=== PATIENT | male | born 1965 | race Caucasian/White ===

== ENCOUNTER 2023-12-17 12:54 | Inpatient (IN) ==
[2023-12-17] MEDS: DROPERIDOL 5 MG/2 ML VIAL IV STA ×2 (13:10→19:11)
[2023-12-17 13:36] LABS: Hematocrit (blood only) 27.3 % (42.0-52.0); Mean Corpuscular Hemoglobin 25.9 pg (25.0-34.0); Mean Corpuscular Volume 78.4 fL (80.0-100.0); Mean Platelet Volume 9.4 fL (9.4-12.4); Platelet Count 587 K/uL (130-400); RDW Coefficient of Variation 14.5 % (11.5-14.5); RDW Standard Deviation 41.1 fL (36.4-46.3); Red Blood Count 3.48 M/uL (4.70-6.10); White Blood Count 24.98 K/ul (4.8-10.8)
[2023-12-17] MEDS ORDERED: VANCOMYCIN CONSULT ACTIVE PRN (13:51)
[2023-12-17 14:00] LABS: Basophils # (auto) 0.09 K/uL (0.00-0.20); Basophils % (auto) 0.4 %; Eosinophils # (auto) 0.05 K/uL (0.00-0.50); Eosinophils % (auto) 0.2 %; Immature Granulocytes # (auto) 1.05 K/uL (0.01-0.20); Immature Granulocytes % (auto) 4.2 %; Lymphocytes # (auto) 1.07 K/uL (1.20-3.40); Lymphocytes % (auto) 4.3 %; Monocytes # (auto) 1.52 K/uL (0.11-0.59); Monocytes % (auto) 6.1 %; Neutrophils % (auto) 84.8 %; Polychromasia 1+
[2023-12-17 14:02] LABS: Albumin Level 2.8 gm/dl (3.4-5.0); Anion Gap 16 (3-11); Bilirubin Direct 0.1 mg/dl (0-0.2); Bilirubin,Total 0.5 mg/dl (0.2-1.0); Calcium 8.7 mg/dl (8.6-10.3); Carbon Dioxide 19 mmol/L (21-32); Chloride 90 mmol/L (98-107); Potassium 4.9 mmol/L (3.5-5.1); Sodium 125 mmol/L (136-145)
--- NOTE | 2023-12-17 14:03 | XRay Report ---
XR chest 1V portable HISTORY: Altered mental status. screening COMPARISON: None. FINDINGS: No pneumothorax. No pleural effusions. There is elevation of the right hemidiaphragm. The h eart is borderline enlarged. No focal lung consolidations to suggest a pneumonia. No evidence for pul monary edema. No acute fractures. IMPRESSION: 1. Elevated right hemidiaphragm. 2. Borderline cardiomegaly. ACT 112: Negative or not required by law. Electronically signed by: Jimmie Castellanos M.D. 12/17/2023 2:01 PM
--- NOTE | 2023-12-17 14:04 | Electrocardiogram Report ---
Test Reason : Blood Pressure : / mmHG Vent. Rate : 104 BPM Atrial Rate : 104 BPM P-R Int : 150 ms QRS Dur : 110 ms QT Int : 342 ms P-R-T Axes : 062 070 058 degrees QTc Int : 449 ms Sinus tachycardia Otherwise normal ECG No previous ECGs available Confirmed by Percy Tran ([id number]) on 12/17/2023 2:04:05 PM Referred By: REFERRED SELF Confirmed By:Percy Tran
[2023-12-17] MEDS: SODIUM CHLORIDE 0.9% 1,000 ML IV ONE ×3 (14:05→16:40)
[2023-12-17] MEDS: CEFEPIME 2,000 MG/20 ML VIAL IV STA (14:05)
[2023-12-17 14:06] LABS: Troponin I High Sensitivity 11.7 pg/ml (0-20)
[2023-12-17 14:13] LABS: Alanine Aminotransferase 46 U/L (7-52); Alkaline Phosphatase 90 U/L (34-104); Aspartate Aminotransferase 29 U/L (13-39); BUN Creatinine Ratio 21.5 (10-20); Blood Urea Nitrogen 47 mg/dl (6-23); Est GFR (African American) 37.6 ml/min; Est GFR (Non-African American) 32.5 ml/min; Glucose 97 mg/dl (70-99(Fasting)); Lipase 24 U/L (11-82); Total Protein 7.7 gm/dl (6.0-8.3)
[2023-12-17 14:15] LABS: iSTAT Creatinine 2.4 mg/dl (0.6-1.3); iSTAT Hemoglobin 10.2 g/dl (14.0-18.0); iSTAT Ionized Calcium 1.08 mmol/l (1.12-1.32); iSTAT Potassium 5.2 mmol/L (3.3-5.0)
--- NOTE | 2023-12-17 14:45 | CT Scan Report ---
CT SCAN OF THE CERVICAL SPINE CLINICAL HISTORY: Change in mental status. Possible trauma COMPARISON STUDY: No priors. TECHNIQUE: CT scan of the cervical spine is performed from the skull base to the upper thoracic spine . Images are reviewed in the axial, sagittal, and coronal planes. IV contrast was not administered fo r this examination. A dose lowering technique was utilized adhering to the principles of ALARA. FINDINGS: Skeletal structures: The skeletal structures are well-mineralized. There is no evidence of fracture o r subluxation involving the cervical spine. Vertebral body height and alignment are maintained. The odontoid process and lateral masses are intact. The atlantoaxial articulation is preserved. The spino us processes appear intact. There is mild multilevel facet arthropathy. Intervertebral discs: The disc spaces are well maintained. Central canal: Widely patent. Soft tissues: The prevertebral and paraspinous soft tissues are within normal limits. Calvarium: The visualized calvarium at the skull base appears intact. Brain parenchyma: Partially visualized brain parenchyma at the skull base is within normal limits. Sinuses and mastoids: Retention cysts are partially visualized in the right maxillary antrum measurin g up to 2 cm. The mastoid air cells are clear as imaged. Lung apices: Clear as visualized. IMPRESSION: There is no evidence of fracture or subluxation involving the cervical spine. ACT 112: Negative or not required by law. Electronically signed by: Jose Shrestha M.D. 12/17/2023 2:42 PM
[2023-12-17] MEDS: VANCOMYCIN HCL 2,000 MG in SODIUM CHLORIDE 0.9% 500 ML IV ONE (14:46)
--- NOTE | 2023-12-17 14:51 | CT Scan Report ---
CT OF THE HEAD WITHOUT CONTRAST CLINICAL HISTORY: AMS, unclear trauma COMPARISON STUDY: No previous studies for comparison. TECHNIQUE: Helical axial images of the head were obtained without IV contrast. Automated exposure con trol was utilized for the study. A dose lowering technique was utilized adhering to the principles o f ALARA. FINDINGS: This study is mildly compromised by motion artifact. No acute intracranial hemorrhage, midl ine shift or mass effect is present. The ventricular system is unremarkable. The basal cisterns are p atent. No extra-axial collections are present. There are no findings to suggest acute dural sinus thr ombosis or acute territorial infarct. No calvarial fractures are identified. IMPRESSION: 1. No acute intracranial findings. Exam mildly compromised by motion artifact. 2. No calvarial fractures identified. ACT 112: Negative or not required by law. Electronically signed by: Reg Peres M.D. 12/17/2023 2:49 PM
[2023-12-17 15:00] LABS: Appearance Urine Cloudy (Clear); Bacteria Urine Automated Negative (Negative); Bilirubin Urine Negative (Negative); Blood Urine 2+ (Negative); Color Urine Yellow; Epithelial Cell Urine Auto 0-5 /lpf (0-5); Glucose Urine UA Negative (Negative); Ketones Urine Negative (Negative); Leukocyte Esterase Urine 2+ (Negative); Nitrite Urine Negative (Negative); Protein Urine 1+ (Negative); RBC Urine Automated 0-4 /hpf (0-4); Specific Gravity Urine 1.017 (1.000-1.030); Urobilinogen Urine Negative (Negative); WBC Urine Automated >30 /hpf (0-5)
--- NOTE | 2023-12-17 15:19 | CT Scan Report ---
ABDOMEN AND PELVIS CT WITHOUT CONTRAST CT DOSE: 6828.04 mGy.cm HISTORY: Altered mental status. infection TECHNIQUE: Multiaxial CT images of the abdomen and pelvis were performed without contrast. A dose lo wering technique was utilized adhering to the principles of ALARA. COMPARISON STUDY: None. FINDINGS: There is a 2.4 cm thick-walled cavitary focus within the base of the left lower lobe on yocasta ge 87. The right lung base is clear. No acute fractures identified. Degenerative changes within the l ower lumbar spine. Distended gallbladder without gallbladder wall thickening. Hepatic steatosis. The unenhanced pancreas, spleen, and adrenal glands unremarkable. Mild bilateral perinephric edema is not ed. No ureteral stones. No hydronephrosis. A few bilateral hypodense lesions seen within the kidneys. These are incompletely characterize on this noncontrast study but favor cysts. Dominant right renal lesion measures 2.7 cm. The dominant left renal lesion measures 2.3 cm. Further characterization with a follow-up nonemergent renal ultrasound is recommended. Normal caliber abdominal aorta. No retroper itoneal or pelvic lymphadenopathy. The bladder is unremarkable. There is an abnormal gas and fluid co llection loculated between the prostate gland and rectum on image 402 measuring approximately 4.1 x 2 .1 cm. There is also abnormal thickening within the right puborectalis sling with a possible small tu bular tract extending to the right perianal location. This may represent a right perianal fistula bes t seen on images 410 through 431. Mild perianal fat stranding is noted. Therefore, the abnormal gas a nd fluid collection located between the prostate gland and rectum may represent supralevator extensio n of a perianal fistula with abscess formation. Clinical correlation recommended to exclude the possi bility of hydrogel placement in the setting of prior prostate radiation therapy. Suboptimal evaluatio n for bowel pathology due to the lack of intravenous and oral contrast. However, no evidence for a ramesh wel obstruction. Normal appendix. IMPRESSION: 1. There is an abnormal gas and fluid collection loculated between the prostate gland and rectum margarito uring approximately 4.1 x 2.1 cm. There is also abnormal thickening within the right puborectalis sli ng with a possible small tubular tract extending to the right perianal location. Therefore, the abnor mal gas and fluid collection located between the prostate gland and rectum may represent supralevator extension of a right-sided perianal fistula with abscess formation. Clinical correlation recommended to exclude the possibility of hydrogel placement in the setting of prior prostate radiation therapy which could also account for this abnormal gas and fluid collection posterior to the prostate gland. 2. Mild bilateral perinephric edema. This may be chronic. Recommend correlation with urinalysis to ex clude the possibility of a pyelonephritis. 3. Distended gallbladder. No gallbladder wall thickening. 4. Bilateral renal hypodense lesions. These are technically indeterminate on this study but favor cys ts. Follow-up nonemergent renal ultrasound recommended for confirmation. 5. A 2.4 cm thick-walled cavitary focus within the base of the left lower lobe. This could represent a cavitary pneumonia. However, [address] follow-up recommended to ensure resolution. 6. Additional findings as described above. ACT 112: Positive. There are findings on this exam that require communication between the performing entity and the patient following Patient Test Result Information Act ([place] Act 112) guidelines. Electronically signed by: Jimmie Castellanos M.D. 12/17/2023 3:17 PM
[2023-12-17 15:39] LABS: Amphetamines+Metham, Urine Neg (Neg); Barbiturates, Urine Neg (Neg); Benzodiazepine, Urine Neg (Neg); Cocaine, Urine Neg (Neg); MDMA (Ecstacy), Urine Neg (Neg); Marijuana, Urine Neg (Neg); Methadone, Urine Neg (Neg); Opiate, Urine Neg (Neg); Phencyclidine, Urine Neg (Neg)
[2023-12-17 15:58] LABS: Adenovirus PCR Not Detected (NotDetected); Bordetella parapertussis PCR Not Detected (NotDetected); Bordetella pertussis PCR Not Detected (NotDetected); Chlamydia pneumoniae PCR Not Detected (NotDetected); Coronavirus 229E PCR Not Detected (NotDetected); Coronavirus CoV-2 (COVID19)PCR Not Detected (NotDetected); Coronavirus HKU1 PCR Not Detected (NotDetected); Coronavirus NL63 PCR Not Detected (NotDetected); Coronavirus OC43PCR Not Detected (NotDetected); Human Metapneumovirus PCR Not Detected (NotDetected); Influenza A PCR Not Detected (NotDetected); Influenza B PCR Not Detected (NotDetected); Mycoplasma pneumoniae PCR Not Detected (NotDetected); Parainfluenza Virus 1 PCR Not Detected (NotDetected); Parainfluenza Virus 2 PCR Not Detected (NotDetected); Parainfluenza Virus 3 PCR Not Detected (NotDetected); Parainfluenza Virus 4 PCR Not Detected (NotDetected); Respiratory Syncytial VirusPCR Not Detected (NotDetected); Rhinovirus/Enterovirus PCR Not Detected (NotDetected)
--- NOTE | 2023-12-17 16:18 | Emergency Department Note ---
Impression & Plan Sepsis, Abscess, perianal, Acute pyelonephritis, Pneumonia ED Provider Note NAME: KIMMIE DSAILVA AGE: 57 SEX: M : 1965 ARRIVES VIA: Ambulance INFORMANT: Patient, ED PROVIDER(S): Carlos Solo MD CHIEF COMPLAINT: Altered mental status HPI: This is a 57-year-old male presenting for altered mental status. Patient is completely combative, altered and not provide any history. Upon record review from outside record it appears that patient has a history of dyslipidemia, degenerative disc disease, obesity, hypertension and was recently evaluated for right knee pain/swelling. Family says that this was concerning for an infection he was was to get a surgery tomorrow. Based on an outside MRI from an orthopedic note appears that patient had right distal femoral diaphysis signal abnormality concerning for cortical disruption/soft tissue mass with enhancement. This could be consistent with lymphoma or similar neoplasm as per this note. Otherwise patient has been significantly altered, found by EMS in his room rolling around with Significant poor conditions. He was fighting this will, and required sedation with 4 mg of IM Ativan total. Upon arrival here, he is again combative requiring droperidol 5 mg IV. Patient otherwise cannot participate in any interview at this time. PAST MEDICAL HISTORY: See Below PAST SURGICAL HISTORY: See Below FAMILY HISTORY: See Below SOCIAL HISTORY: See Below HOME MEDICATIONS: See Below ALLERGIES: See Below VITALS: See Below PHYSICAL EXAMINATION: General: Combative Head: Normocephalic and atraumatic Eyes: Normal inspection, extraocular muscles intact, reactive bilaterally Ear, nose, throat: Normal external exam Neck: Normal range of motion Respiratory: lungs clear to auscultation bilaterally Cardiovascular: Tachycardic regular rate/rhythm, no murmur GI:, Distended soft, nontender, no guarding or rebound Extremities: Right knee warmth, no significant erythema Neuro: Moves all extremities spontaneously, no posturing, response to painful stimuli does not follow commands Skin: Warm, dry, and intact MEDICAL DECISION MAKING: This is a 57-year-old male presenting for altered mental status. Patient does appear somewhat septic, tachycardic, not hypotensive. He has a right knee swelling which appears to be consistent with a possible lymphoma/neoplasm of osteomyelitis could be considered. Does not appear outwardly septic joint. Otherwise look for other source. Will get urinalysis, CT of the abdomen/pelvis as well as CT head to evaluate for any intracranial hemorrhage. -Blood history of significant leukocytosis 11/14 lactic acid was also elevated at 4.2. Fluids ordered as well as broad-spectrum antibiotics given including vancomycin and cefepime. -Blood work reveals anemia, significant thrombocytosis -Significant hyponatremia is noted, anion gap is 16, creatinine elevation, DICK at 2.19 normal LFTs, troponin and lipase -Patient CT imaging reveals no intracranial process -Imaging also reveals multiple sources of possible infection including this possible perianal abscess/fistula. Also shows pyelonephritis with urinalysis that is concerning for infection. Otherwise possible pneumonia as well -Chest x-ray as independent by me reveals cardiomegaly, no pleural effusions or pneumothorax -Patient's repeat lactic acid is downtrending however despite fluid cessation and broad-spectrum antibiotics, patient continues to be significantly altered, still unable to provide any significant history. Is thrashing in bed. Will require further sedation. -I discussed the care with Dr. Simpson, who states he will be able to consult on it however he may not be able to drain this and may require IR intervention. We currently do not have IR capabilities. -Discussed care with hospitalist at this time who excepted the patient. -At a later point, hospitalist called back saying ICU request transfer to outside facility for ultimate surgical intervention. [facility] hospitalist call the [facility] who states the IR/surgery teams do not believe this is any that is amenable to drainage and would benefit from antibiotics. Please see their note for further details. Otherwise patient will stay here in the ICU for antibiotics. -I discussed care with patient's family numerous times during patient's time in the ER. Differential diagnosis: Sepsis, pneumonia, septic joint, cholecystitis, pyelonephritis, intra-abdominal infection, SBO, necrotizing fasciitis ER treatment provided: See below Diagnostics interpreted by me: ECG: ECG independently interpreted by me with sinus tachycardia, rate of 104, normal axis, normal OR, normal QRS, normal QTc, no ST segment elevations consistent with STEMI criteria Cardiac Monitoring: An order was placed for continuous cardiac monitoring. The monitor shows a rate of 102 with sinus Laboratory studies: As stated above and show below. Imaging studies: See below. Critical Care Note: I have personally spent 100 minutes of critical care time in the direct management of this patient. This includes bedside care, interpretation of diagnostic studies, and testing, discussion with consultants, patient, and family members, and other required patient management activities. This 100 minutes is in excess of all separately billable procedures. Past Med/Surg History Medical History (Updated 12/17/23 @ 19:58 by Carlos Solo MD) Dyslipidemia Hypertension Social History Smoking Status: Never smoker Preferred Language: Mohawk Feels Safe at Home: Yes Allergies Allergies Allergy/AdvReac Type Severity Reaction Status Date / Time No Known Allergies Allergy Unverified 12/17/23 15:30 Home Meds Home Medications Medication Instructions Recorded Confirmed atenolol 25 mg tablet 25 mg PO QAM 12/17/23 12/17/23 chlorthalidone 25 mg tablet 25 mg PO QAM 12/17/23 12/17/23 enalapril maleate 10 mg tablet 10 mg PO QAM 12/17/23 12/17/23 enalapril maleate 20 mg tablet 20 mg PO QAM 12/17/23 12/17/23 naproxen 500 mg tablet 500 mg PO BID PRN Pain 12/17/23 12/17/23 simvastatin 20 mg tablet 20 mg PO HS 12/17/23 12/17/23 Results & Data (ED) Vital Signs Vital Signs - 24 hr 12/17/23 13:00 12/17/23 13:10 12/17/23 13:13 Temperature Temperature Source Pulse Rate 108 H 111 H Pulse Rate [Right Finger] Pulse Rate from SpO2 Sensor 24 L 107 H 114 H Pulse Rhythm Pulse Rhythm [Right Finger] Pulse Strength Respiratory Rate 18 20 Respiratory Effort / Characteristics Respiratory Depth Respiratory Pattern Blood Pressure 118/62 118/62 Blood Pressure [Right Arm] Blood Pressure Mean 80 80 Blood Pressure Mean [Right Arm] Blood Pressure Position Blood Pressure Position [Right Arm] Pulse Oximetry 82 L 95 98 Oxygen Delivery Method Sepsis Recent Fever Within 48 Hours Sepsis New/Unexplained Change in Mental Status Sepsis Action Taken by Nursing 12/17/23 13:21 12/17/23 13:30 12/17/23 14:01 Temperature Temperature Source Pulse Rate 106 H 112 H 103 H Pulse Rate [Right Finger] Pulse Rate from SpO2 Sensor 114 H 101 H Pulse Rhythm Regular Pulse Rhythm [Right Finger] Pulse Strength Normal Respiratory Rate 20 18 22 Respiratory Effort / Characteristics Non-Labored Spontaneous Respiratory Depth Normal Respiratory Pattern Regular Blood Pressure 137/65 117/91 100/58 L Blood Pressure [Right Arm] Blood Pressure Mean 89 99 72 Blood Pressure Mean [Right Arm] Blood Pressure Position Sitting Blood Pressure Position [Right Arm] Pulse Oximetry 100 99 97 Oxygen Delivery Method Room Air Sepsis Recent Fever Within 48 Hours No Sepsis New/Unexplained Change in Mental Status No Sepsis Action Taken by Nursing No Action Required 12/17/23 14:07 12/17/23 14:31 12/17/23 14:57 Temperature 38.1 C H Temperature Source Rectal Pulse Rate 109 H 125 H Pulse Rate [Right Finger] Pulse Rate from SpO2 Sensor 39 L Pulse Rhythm Pulse Rhythm [Right Finger] Pulse Strength Respiratory Rate 15 Respiratory Effort / Characteristics Respiratory Depth Respiratory Pattern Blood Pressure 124/88 Blood Pressure [Right Arm] Blood Pressure Mean 100 Blood Pressure Mean [Right Arm] Blood Pressure Position Blood Pressure Position [Right Arm] Pulse Oximetry 85 L Oxygen Delivery Method Sepsis Recent Fever Within 48 Hours Sepsis New/Unexplained Change in Mental Status Sepsis Action Taken by Nursing 12/17/23 15:00 12/17/23 15:13 12/17/23 15:13 Temperature Temperature Source Pulse Rate 100 H 108 H 111 H Pulse Rate [Right Finger] Pulse Rate from SpO2 Sensor 99 H 114 H Pulse Rhythm Pulse Rhythm [Right Finger] Pulse Strength Respiratory Rate 19 22 22 Respiratory Effort / Characteristics Respiratory Depth Respiratory Pattern Blood Pressure 133/61 132/71 Blood Pressure [Right Arm] Blood Pressure Mean 85 94 Blood Pressure Mean [Right Arm] Blood Pressure Position Blood Pressure Position [Right Arm] Pulse Oximetry 97 99 90 Oxygen Delivery Method Room Air Room Air Room Air Sepsis Recent Fever Within 48 Hours Sepsis New/Unexplained Change in Mental Status Sepsis Action Taken by Nursing 12/17/23 15:30 12/17/23 15:30 12/17/23 15:48 Temperature Temperature Source Pulse Rate 116 H Pulse Rate [Right Finger] 110 H 110 H Pulse Rate from SpO2 Sensor 120 H Pulse Rhythm Pulse Rhythm [Right Finger] Pulse Strength Respiratory Rate 20 20 19 Respiratory Effort / Characteristics Non-Labored Non-Labored Respiratory Depth Normal Normal Respiratory Pattern Blood Pressure 107/82 Blood Pressure [Right Arm] 107/82 107/73 Blood Pressure Mean 98 Blood Pressure Mean [Right Arm] 90 84 Blood Pressure Position Blood Pressure Position [Right Arm] Pulse Oximetry 97 95 99 Oxygen Delivery Method Room Air Room Air Room Air Sepsis Recent Fever Within 48 Hours Sepsis New/Unexplained Change in Mental Status Sepsis Action Taken by Nursing 12/17/23 15:48 12/17/23 16:00 12/17/23 16:00 Temperature Temperature Source Pulse Rate 109 H Pulse Rate [Right Finger] 102 H Pulse Rate from SpO2 Sensor 111 H 104 H Pulse Rhythm Pulse Rhythm [Right Finger] Regular Pulse Strength Respiratory Rate 16 24 Respiratory Effort / Characteristics Non-Labored Spontaneous Respiratory Depth Normal Respiratory Pattern Regular Blood Pressure 107/73 120/71 Blood Pressure [Right Arm] 120/71 Blood Pressure Mean 83 87 Blood Pressure Mean [Right Arm] 87 Blood Pressure Position Blood Pressure Position [Right Arm] Lying Pulse Oximetry 94 97 93 Oxygen Delivery Method Room Air Room Air Room Air Sepsis Recent Fever Within 48 Hours Sepsis New/Unexplained Change in Mental Status Sepsis Action Taken by Nursing 12/17/23 16:20 12/17/23 16:30 12/17/23 16:34 Temperature Temperature Source Pulse Rate 118 H 108 H Pulse Rate [Right Finger] 106 H Pulse Rate from SpO2 Sensor 114 H 109 H Pulse Rhythm Pulse Rhythm [Right Finger] Pulse Strength Respiratory Rate 29 H 24 16 Respiratory Effort / Characteristics Non-Labored Respiratory Depth Normal Respiratory Pattern Regular Blood Pressure 118/71 138/80 Blood Pressure [Right Arm] 138/80 Blood Pressure Mean 86 99 Blood Pressure Mean [Right Arm] 99 Blood Pressure Position Blood Pressure Position [Right Arm] Pulse Oximetry 94 92 97 Oxygen Delivery Method Room Air Room Air Sepsis Recent Fever Within 48 Hours Sepsis New/Unexplained Change in Mental Status Sepsis Action Taken by Nursing 12/17/23 16:40 12/17/23 17:00 12/17/23 17:00 Temperature Temperature Source Pulse Rate 117 H 112 H Pulse Rate [Right Finger] 116 H Pulse Rate from SpO2 Sensor 113 H Pulse Rhythm Pulse Rhythm [Right Finger] Pulse Strength Respiratory Rate 16 24 25 H Respiratory Effort / Characteristics Non-Labored Respiratory Depth Normal Respiratory Pattern Blood Pressure 114/69 Blood Pressure [Right Arm] 128/69 Blood Pressure Mean 84 Blood Pressure Mean [Right Arm] 88 Blood Pressure Position Blood Pressure Position [Right Arm] Pulse Oximetry 94 98 91 Oxygen Delivery Method Room Air Sepsis Recent Fever Within 48 Hours Sepsis New/Unexplained Change in Mental Status Sepsis Action Taken by Nursing 12/17/23 17:10 12/17/23 17:15 12/17/23 17:30 Temperature Temperature Source Pulse Rate 116 H 116 H Pulse Rate [Right Finger] 118 H Pulse Rate from SpO2 Sensor 131 H Pulse Rhythm Pulse Rhythm [Right Finger] Pulse Strength Respiratory Rate 18 17 Respiratory Effort / Characteristics Non-Labored Respiratory Depth Normal Respiratory Pattern Blood Pressure 128/69 Blood Pressure [Right Arm] 142/59 H Blood Pressure Mean 88 Blood Pressure Mean [Right Arm] 86 Blood Pressure Position Blood Pressure Position [Right Arm] Pulse Oximetry 91 97 Oxygen Delivery Method Room Air Sepsis Recent Fever Within 48 Hours Sepsis New/Unexplained Change in Mental Status Sepsis Action Taken by Nursing 12/17/23 17:30 12/17/23 17:40 12/17/23 18:00 Temperature Temperature Source Pulse Rate 119 H Pulse Rate [Right Finger] 116 H Pulse Rate from SpO2 Sensor 119 H Pulse Rhythm Pulse Rhythm [Right Finger] Pulse Strength Respiratory Rate 18 24 Respiratory Effort / Characteristics Non-Labored Spontaneous Respiratory Depth Normal Respiratory Pattern Blood Pressure 142/59 H Blood Pressure [Right Arm] 122/83 Blood Pressure Mean 86 Blood Pressure Mean [Right Arm] 96 Blood Pressure Position Blood Pressure Position [Right Arm] Pulse Oximetry 98 93 100 Oxygen Delivery Method Room Air Sepsis Recent Fever Within 48 Hours Sepsis New/Unexplained Change in Mental Status Sepsis Action Taken by Nursing 12/17/23 18:00 12/17/23 18:30 12/17/23 18:39 Temperature Temperature Source Pulse Rate 118 H 118 H Pulse Rate [Right Finger] 115 H Pulse Rate from SpO2 Sensor 167 H Pulse Rhythm Pulse Rhythm [Right Finger] Pulse Strength Respiratory Rate 18 21 18 Respiratory Effort / Characteristics Non-Labored Spontaneous Respiratory Depth Normal Respiratory Pattern Blood Pressure 122/83 Blood Pressure [Right Arm] 145/82 H Blood Pressure Mean 100 Blood Pressure Mean [Right Arm] 103 Blood Pressure Position Blood Pressure Position [Right Arm] Pulse Oximetry 98 94 97 Oxygen Delivery Method Room Air Sepsis Recent Fever Within 48 Hours Sepsis New/Unexplained Change in Mental Status Sepsis Action Taken by Nursing 12/17/23 19:00 Temperature Temperature Source Pulse Rate 118 H Pulse Rate [Right Finger] Pulse Rate from SpO2 Sensor 123 H Pulse Rhythm Pulse Rhythm [Right Finger] Pulse Strength Respiratory Rate 20 Respiratory Effort / Characteristics Respiratory Depth Respiratory Pattern Blood Pressure 118/71 Blood Pressure [Right Arm] Blood Pressure Mean 86 Blood Pressure Mean [Right Arm] Blood Pressure Position Blood Pressure Position [Right Arm] Pulse Oximetry 95 Oxygen Delivery Method Sepsis Recent Fever Within 48 Hours Sepsis New/Unexplained Change in Mental Status Sepsis Action Taken by Nursing Laboratory Data 12/17/23 13:10 12/17/23 13:10 Lab Results 12/17/23 12/17/23 12/17/23 Range/Units 13:10 13:30 14:02 WBC 24.98 H (4.8-10.8) K/ul RBC 3.48 L (4.70-6.10) M/uL Hgb 9.0 L (14.0-18.0) g/dl POC Hgb 10.2 L (14.0-18.0) g/dl Hct 27.3 L (42.0-52.0) % POC Hct 30 L (42-52) % MCV 78.4 L (80.0-100.0) fL MCH 25.9 (25.0-34.0) pg MCHC 33.0 (32.0-36.0) g/dL RDW Std Deviation 41.1 (36.4-46.3) fL RDW Coeff of Xavier 14.5 (11.5-14.5) % Plt Count 587 H (130-400) K/uL MPV 9.4 (9.4-12.4) fL Immature Gran % (Auto) 4.2 % Neut % (Auto) 84.8 % Lymph % (Auto) 4.3 % [place] % (Auto) 6.1 % Eos % (Auto) 0.2 % Baso % (Auto) 0.4 % Neut # (Auto) 21.20 H (1.40-6.50) K/uL Lymph # (Auto) 1.07 L (1.20-3.40) K/uL [place] # (Auto) 1.52 H (0.11-0.59) K/uL Eos # (Auto) 0.05 (0.00-0.50) K/uL Baso # (Auto) 0.09 (0.00-0.20) K/uL Immature Gran # (Auto) 1.05 H (0.01-0.20) K/uL Polychromasia 1+ ESR (0-20) mm/hr ABG pH (7.35-7.45) ABG pCO2 (35-46) mmHg ABG pO2 (80-95) mmHg ABG HCO3 (19-24) mmol/L ABG O2 Saturation (90-95) % ABG Base Excess (-9-1.8) mEq/L Wil Test (Pos) Oxygen Given POC Sodium 124 L (135-144) mmol/L Sodium 125 L (136-145) mmol/L POC Potassium 5.2 H (3.3-5.0) mmol/L Potassium 4.9 (3.5-5.1) mmol/L POC Chloride 93 L (101-112) mmol/L Chloride 90 L (98-107) mmol/L Carbon Dioxide 19 L (21-32) mmol/L POC Total CO2 21 L (24-31) mmol/L Anion Gap 16 H (3-11) POC Anion Gap 17.0 (16-25) mmol/L POC BUN 39 H (7-18) mg/dl BUN 47 H (6-23) mg/dl Creatinine 2.19 H (0.6-1.4) mg/dl POC Creatinine 2.4 H (0.6-1.3) mg/dl Est Cr Clr Drug Dosing Not Reportable Est GFR ( Amer) 37.6 ml/min Est GFR (Non-Af Amer) 32.5 ml/min BUN/Creatinine Ratio 21.5 H (10-20) Glucose 97 (70-99(Fasting)) mg/dl POC Glucose (other) 107 H (70-99) mg/dl Osmolality (280-300) mOsm/kg Lactate 4.2 H* (0.4-2.0) mmol/L Calcium 8.7 (8.6-10.3) mg/dl POC Ioniz Calcium Izaiah 1.08 L (1.12-1.32) mmol/l Total Bilirubin 0.5 (0.2-1.0) mg/dl Direct Bilirubin 0.1 (0-0.2) mg/dl AST 29 (13-39) U/L ALT 46 (7-52) U/L Alkaline Phosphatase 90 (34-104) U/L Troponin I High Sens 11.7 (0-20) pg/ml C-Reactive Protein 31.33 H (0-0.5) mg/dl Total Protein 7.7 (6.0-8.3) gm/dl Albumin 2.8 L (3.4-5.0) gm/dl Lipase 24 (11-82) U/L Procalcitonin (0-0.5) ng/ml TSH 2.054 (0.300-4.500) uIu/ml Urine Color Urine Appearance (Clear) Urine pH (4.5-7.5) Ur Specific [place] (1.000-1.030) Urine Protein (Negative) Urine Glucose (UA) (Negative) Urine Ketones (Negative) Urine Blood (Negative) Urine Nitrite (Negative) Urine Bilirubin (Negative) Urine Urobilinogen (Negative) Ur Leukocyte Esterase (Negative) Urine WBC (Auto) (0-5) /hpf Urine RBC (Auto) (0-4) /hpf U Hyaline Cast (Auto) (0-5) /lpf U Epithel Cells (Auto) (0-5) /lpf Urine Bacteria (Auto) (Negative) Urine Yeast Salicylates (3.0-30) mg/dl Urine Opiates Screen (Neg) Ur Methadone, Qual (Neg) Acetaminophen (10-30) ug/ml Urine Barbiturates (Neg) Ur Phencyclidine (PCP) (Neg) U Amphetamin/Meth Scrn (Neg) MDMA (Ecstasy) Screen (Neg) U Benzodiazepines Scrn (Neg) Ur Cocaine Metabolite (Neg) U Marijuana (THC) Screen (Neg) Ethyl Alcohol mg/dL (<10.0) mg/dl Adenovirus (PCR) (NotDetected) B. pertussis DNA (PCR) (NotDetected) B.parapertussis DNA PCR (NotDetected) C. pneumoniae DNA (PCR) (NotDetected) Coronavirus OC43 (PCR) (NotDetected) Coronavirus HKU1 (PCR) (NotDetected) Coronavirus 229E (PCR) (NotDetected) SARS-CoV-2 (PCR) (NotDetected) Coronavirus NL63 (PCR) (NotDetected) Human Metapneumovir PCR (NotDetected) Influenza Type A (PCR) (NotDetected) Influenza Type B (PCR) (NotDetected) M. pneumoniae (PCR) (NotDetected) Parainfluenza 1 (PCR) (NotDetected) Parainfluenza 2 (PCR) (NotDetected) Parainfluenza 3 (PCR) (NotDetected) Parainfluenza 4 (PCR) (NotDetected) RSV (PCR) (NotDetected) Entero/Rhino (PCR) (NotDetected) 12/17/23 12/17/23 12/17/23 Range/Units 14:45 14:50 15:23 WBC (4.8-10.8) K/ul RBC (4.70-6.10) M/uL Hgb (14.0-18.0) g/dl POC Hgb (14.0-18.0) g/dl Hct (42.0-52.0) % POC Hct (42-52) % MCV (80.0-100.0) fL MCH (25.0-34.0) pg MCHC (32.0-36.0) g/dL RDW Std Deviation (36.4-46.3) fL RDW Coeff of Xavier (11.5-14.5) % Plt Count (130-400) K/uL MPV (9.4-12.4) fL Immature Gran % (Auto) % Neut % (Auto) % Lymph % (Auto) % [place] % (Auto) % Eos % (Auto) % Baso % (Auto) % Neut # (Auto) (1.40-6.50) K/uL Lymph # (Auto) (1.20-3.40) K/uL [place] # (Auto) (0.11-0.59) K/uL Eos # (Auto) (0.00-0.50) K/uL Baso # (Auto) (0.00-0.20) K/uL Immature Gran # (Auto) (0.01-0.20) K/uL Polychromasia ESR (0-20) mm/hr ABG pH (7.35-7.45) ABG pCO2 (35-46) mmHg ABG pO2 (80-95) mmHg ABG HCO3 (19-24) mmol/L ABG O2 Saturation (90-95) % ABG Base Excess (-9-1.8) mEq/L Wil Test (Pos) Oxygen Given POC Sodium (135-144) mmol/L Sodium (136-145) mmol/L POC Potassium (3.3-5.0) mmol/L Potassium (3.5-5.1) mmol/L POC Chloride (101-112) mmol/L Chloride (98-107) mmol/L Carbon Dioxide (21-32) mmol/L POC Total CO2 (24-31) mmol/L Anion Gap (3-11) POC Anion Gap (16-25) mmol/L POC BUN (7-18) mg/dl BUN (6-23) mg/dl Creatinine (0.6-1.4) mg/dl POC Creatinine (0.6-1.3) mg/dl Est Cr Clr Drug Dosing Est GFR ( Amer) ml/min Est GFR (Non-Af Amer) ml/min BUN/Creatinine Ratio (10-20) Glucose (70-99(Fasting)) mg/dl POC Glucose (other) (70-99) mg/dl Osmolality (280-300) mOsm/kg Lactate 2.4 H* (0.4-2.0) mmol/L Calcium (8.6-10.3) mg/dl POC Ioniz Calcium Izaiah (1.12-1.32) mmol/l Total Bilirubin (0.2-1.0) mg/dl Direct Bilirubin (0-0.2) mg/dl AST (13-39) U/L ALT (7-52) U/L Alkaline Phosphatase (34-104) U/L Troponin I High Sens (0-20) pg/ml C-Reactive Protein (0-0.5) mg/dl Total Protein (6.0-8.3) gm/dl Albumin (3.4-5.0) gm/dl Lipase (11-82) U/L Procalcitonin (0-0.5) ng/ml TSH (0.300-4.500) uIu/ml Urine Color Yellow Urine Appearance Cloudy A (Clear) Urine pH 5.0 (4.5-7.5) Ur Specific [place] 1.017 (1.000-1.030) Urine Protein 1+ H (Negative) Urine Glucose (UA) Negative (Negative) Urine Ketones Negative (Negative) Urine Blood 2+ H (Negative) Urine Nitrite Negative (Negative) Urine Bilirubin Negative (Negative) Urine Urobilinogen Negative (Negative) Ur Leukocyte Esterase 2+ H (Negative) Urine WBC (Auto) >30 H (0-5) /hpf Urine RBC (Auto) 0-4 (0-4) /hpf U Hyaline Cast (Auto) 1-5 (0-5) /lpf U Epithel Cells (Auto) 0-5 (0-5) /lpf Urine Bacteria (Auto) Negative (Negative) Urine Yeast Not Reportable Salicylates (3.0-30) mg/dl Urine Opiates Screen Neg (Neg) Ur Methadone, Qual Neg (Neg) Acetaminophen (10-30) ug/ml Urine Barbiturates Neg (Neg) Ur Phencyclidine (PCP) Neg (Neg) U Amphetamin/Meth Scrn Neg (Neg) MDMA (Ecstasy) Screen Neg (Neg) U Benzodiazepines Scrn Neg (Neg) Ur Cocaine Metabolite Neg (Neg) U Marijuana (THC) Screen Neg (Neg) Ethyl Alcohol mg/dL (<10.0) mg/dl Adenovirus (PCR) Not Detected (NotDetected) B. pertussis DNA (PCR) Not Detected (NotDetected) B.parapertussis DNA PCR Not Detected (NotDetected) C. pneumoniae DNA (PCR) Not Detected (NotDetected) Coronavirus OC43 (PCR) Not Detected (NotDetected) Coronavirus HKU1 (PCR) Not Detected (NotDetected) Coronavirus 229E (PCR) Not Detected (NotDetected) SARS-CoV-2 (PCR) Not Detected (NotDetected) Coronavirus NL63 (PCR) Not Detected (NotDetected) Human Metapneumovir PCR Not Detected (NotDetected) Influenza Type A (PCR) Not Detected (NotDetected) Influenza Type B (PCR) Not Detected (NotDetected) M. pneumoniae (PCR) Not Detected (NotDetected) Parainfluenza 1 (PCR) Not Detected (NotDetected) Parainfluenza 2 (PCR) Not Detected (NotDetected) Parainfluenza 3 (PCR) Not Detected (NotDetected) Parainfluenza 4 (PCR) Not Detected (NotDetected) RSV (PCR) Not Detected (NotDetected) Entero/Rhino (PCR) Not Detected (NotDetected) 12/17/23 12/17/23 12/17/23 Range/Units 17:51 18:20 18:34 WBC (4.8-10.8) K/ul RBC (4.70-6.10) M/uL Hgb (14.0-18.0) g/dl POC Hgb (14.0-18.0) g/dl Hct (42.0-52.0) % POC Hct (42-52) % MCV (80.0-100.0) fL MCH (25.0-34.0) pg MCHC (32.0-36.0) g/dL RDW Std Deviation (36.4-46.3) fL RDW Coeff of Xavier (11.5-14.5) % Plt Count (130-400) K/uL MPV (9.4-12.4) fL Immature Gran % (Auto) % Neut % (Auto) % Lymph % (Auto) % [place] % (Auto) % Eos % (Auto) % Baso % (Auto) % Neut # (Auto) (1.40-6.50) K/uL Lymph # (Auto) (1.20-3.40) K/uL [place] # (Auto) (0.11-0.59) K/uL Eos # (Auto) (0.00-0.50) K/uL Baso # (Auto) (0.00-0.20) K/uL Immature Gran # (Auto) (0.01-0.20) K/uL Polychromasia ESR 95 H (0-20) mm/hr ABG pH 7.45 (7.35-7.45) ABG pCO2 27 L (35-46) mmHg ABG pO2 70 L (80-95) mmHg ABG HCO3 19 (19-24) mmol/L ABG O2 Saturation 97.5 H (90-95) % ABG Base Excess -3.8 (-9-1.8) mEq/L Wil Test Pos (Pos) Oxygen Given RA POC Sodium (135-144) mmol/L Sodium (136-145) mmol/L POC Potassium (3.3-5.0) mmol/L Potassium (3.5-5.1) mmol/L POC Chloride (101-112) mmol/L Chloride (98-107) mmol/L Carbon Dioxide (21-32) mmol/L POC Total CO2 (24-31) mmol/L Anion Gap (3-11) POC Anion Gap (16-25) mmol/L POC BUN (7-18) mg/dl BUN (6-23) mg/dl Creatinine (0.6-1.4) mg/dl POC Creatinine (0.6-1.3) mg/dl Est Cr Clr Drug Dosing Est GFR ( Amer) ml/min Est GFR (Non-Af Amer) ml/min BUN/Creatinine Ratio (10-20) Glucose (70-99(Fasting)) mg/dl POC Glucose (other) (70-99) mg/dl Osmolality 280 (280-300) mOsm/kg Lactate (0.4-2.0) mmol/L Calcium (8.6-10.3) mg/dl POC Ioniz Calcium Izaiah (1.12-1.32) mmol/l Total Bilirubin (0.2-1.0) mg/dl Direct Bilirubin (0-0.2) mg/dl AST (13-39) U/L ALT (7-52) U/L Alkaline Phosphatase (34-104) U/L Troponin I High Sens (0-20) pg/ml C-Reactive Protein (0-0.5) mg/dl Total Protein (6.0-8.3) gm/dl Albumin (3.4-5.0) gm/dl Lipase (11-82) U/L Procalcitonin 1.35 H (0-0.5) ng/ml TSH (0.300-4.500) uIu/ml Urine Color Urine Appearance (Clear) Urine pH (4.5-7.5) Ur Specific [place] (1.000-1.030) Urine Protein (Negative) Urine Glucose (UA) (Negative) Urine Ketones (Negative) Urine Blood (Negative) Urine Nitrite (Negative) Urine Bilirubin (Negative) Urine Urobilinogen (Negative) Ur Leukocyte Esterase (Negative) Urine WBC (Auto) (0-5) /hpf Urine RBC (Auto) (0-4) /hpf U Hyaline Cast (Auto) (0-5) /lpf U Epithel Cells (Auto) (0-5) /lpf Urine Bacteria (Auto) (Negative) Urine Yeast Salicylates < 3.0 L (3.0-30) mg/dl Urine Opiates Screen (Neg) Ur Methadone, Qual (Neg) Acetaminophen 3 L (10-30) ug/ml Urine Barbiturates (Neg) Ur Phencyclidine (PCP) (Neg) U Amphetamin/Meth Scrn (Neg) MDMA (Ecstasy) Screen (Neg) U Benzodiazepines Scrn (Neg) Ur Cocaine Metabolite (Neg) U Marijuana (THC) Screen (Neg) Ethyl Alcohol mg/dL < 10.0 (<10.0) mg/dl Adenovirus (PCR) (NotDetected) B. pertussis DNA (PCR) (NotDetected) B.parapertussis DNA PCR (NotDetected) C. pneumoniae DNA (PCR) (NotDetected) Coronavirus OC43 (PCR) (NotDetected) Coronavirus HKU1 (PCR) (NotDetected) Coronavirus 229E (PCR) (NotDetected) SARS-CoV-2 (PCR) (NotDetected) Coronavirus NL63 (PCR) (NotDetected) Human Metapneumovir PCR (NotDetected) Influenza Type A (PCR) (NotDetected) Influenza Type B (PCR) (NotDetected) M. pneumoniae (PCR) (NotDetected) Parainfluenza 1 (PCR) (NotDetected) Parainfluenza 2 (PCR) (NotDetected) Parainfluenza 3 (PCR) (NotDetected) Parainfluenza 4 (PCR) (NotDetected) RSV (PCR) (NotDetected) Entero/Rhino (PCR) (NotDetected) Administered Medications Discontinued Medications Droperidol (Droperidol 5 Mg/2 Ml Vial) 5 mg IV ONE STA Stop: 12/17/23 13:51 Last Admin: 12/17/23 13:10 Dose: 5 mg Documented By: GWEN Droperidol (Droperidol 5 Mg/2 Ml Vial) 2.5 mg IV ONE STA Stop: 12/17/23 19:03 Last Admin: 12/17/23 19:11 Dose: 2.5 mg Documented By: LIZ Sodium Chloride (Nss) 1,000 mls @ 999 mls/hr IV .Q1H1M ONE Stop: 12/17/23 14:51 Last Infusion: 12/17/23 16:32 Dose: Infused Documented By: Admin: 12/17/23 14:05 Dose: 999 mls/hr Documented By: GWEN Vancomycin HCl 2,000 mg/ (Sodium Chloride) 540 mls @ 200 mls/hr IV NOW ONE Stop: 12/17/23 16:32 Last Infusion: 12/17/23 17:28 Dose: Infused Documented By: Admin: 12/17/23 14:46 Dose: 200 mls/hr Documented By: GWEN Cefepime HCl (Maxipime) 2,000 mg in 20 mls @ 5 mls/min IV NOW STA; Protocol Stop: 12/17/23 13:54 Last Admin: 12/17/23 14:05 Dose: 5 mls/min Documented By: GWEN Sodium Chloride (Nss) 1,000 mls @ 999 mls/hr IV .Q1H1M ONE Stop: 12/17/23 17:18 Last Infusion: 12/17/23 17:40 Dose: Infused Documented By: Admin: 12/17/23 16:40 Dose: 999 mls/hr Documented By: YVONNE Sodium Chloride (Nss) 1,000 mls @ 999 mls/hr IV .Q1H1M ONE Stop: 12/17/23 17:33 Last Infusion: 12/17/23 17:40 Dose: Infused Documented By: Admin: 12/17/23 16:40 Dose: 999 mls/hr Documented By: YVONNE Acetaminophen (Ofirmev) 1,000 mg in 100 mls @ 400 mls/hr IV NOW STA Stop: 12/17/23 18:12 Last Infusion: 12/17/23 18:16 Dose: Infused Documented By: Admin: 12/17/23 18:01 Dose: 400 mls/hr Documented By: YVONNE Metronidazole (Flagyl) 500 mg in 100 mls @ 100 mls/hr IV NOW STA; Protocol Stop: 12/17/23 19:15 Last Infusion: 12/17/23 19:50 Dose: Infused Documented By: Admin: 12/17/23 18:36 Dose: 100 mls/hr Documented By: YVONNE Piperacillin Sod/Tazobactam (Sod 4.5 gm/ Dextrose) 100 mls @ 200 mls/hr IV NOW ONE; Protocol Stop: 12/17/23 18:59 Last Infusion: 12/17/23 19:50 Dose: Infused Documented By: Admin: 12/17/23 19:11 Dose: 200 mls/hr Documented By: LIZ Piperacillin Sod/Tazobactam Sod (Piperacillin/Tazobactam 4.5 Gm/100ml D5w) Confirm Administered Dose 4.5 gm IV .STK-MED ONE Stop: 12/17/23 18:50 Last Admin: 12/17/23 19:08 Dose: Not Given Documented By: [facility] Imaging Data Radiologist's Impression: Cervical Spine CT 12/17/23 13:15 CT SCAN OF THE CERVICAL SPINE CLINICAL HISTORY: Change in mental status. Possible trauma COMPARISON STUDY: No priors. TECHNIQUE: CT scan of the cervical spine is performed from the skull base to the upper thoracic spine. Images are reviewed in the axial, sagittal, and coronal planes. IV contrast was not administered for this examination. A dose lowering technique was utilized adhering to the principles of ALARA. FINDINGS: Skeletal structures: The skeletal structures are well-mineralized. There is no evidence of fracture or subluxation involving the cervical spine. Vertebral body height and alignment are maintained. The odontoid process and lateral masses are intact. The atlantoaxial articulation is preserved. The spinous processes appear intact. There is mild multilevel facet arthropathy. Intervertebral discs: The disc spaces are well maintained. Central canal: Widely patent. Soft tissues: The prevertebral and paraspinous soft tissues are within normal limits. Calvarium: The visualized calvarium at the skull base appears intact. Brain parenchyma: Partially visualized brain parenchyma at the skull base is within normal limits. Sinuses and mastoids: Retention cysts are partially visualized in the right maxillary antrum measuring up to 2 cm. The mastoid air cells are clear as imaged. Lung apices: Clear as visualized. IMPRESSION: There is no evidence of fracture or subluxation involving the cervical spine. ACT 112: Negative or not required by law. Electronically signed by: Jose Shrestha M.D. 12/17/2023 2:[address] 12/17/23 13:15 CT OF THE HEAD WITHOUT CONTRAST CLINICAL HISTORY: AMS, unclear trauma COMPARISON STUDY: No previous studies for comparison. TECHNIQUE: Helical axial images of the head were obtained without IV contrast. Automated exposure control was utilized for the study. A dose lowering technique was utilized adhering to the principles of ALARA. FINDINGS: This study is mildly compromised by motion artifact. No acute intracranial hemorrhage, midline shift or mass effect is present. The ventricular system is unremarkable. The basal cisterns are patent. No extra- axial collections are present. There are no findings to suggest acute dural sinus thrombosis or acute territorial infarct. No calvarial fractures are identified. IMPRESSION: 1. No acute intracranial findings. Exam mildly compromised by motion artifact. 2. No calvarial fractures identified. ACT 112: Negative or not required by law. Electronically signed by: Reg Peres M.D. 12/17/2023 2:49 PM Chest X-Ray 12/17/23 13:32 XR chest 1V portable HISTORY: Altered mental status. screening COMPARISON: None. FINDINGS: No pneumothorax. No pleural effusions. There is elevation of the right hemidiaphragm. The heart is borderline enlarged. No focal lung consolidations to suggest a pneumonia. No evidence for pulmonary edema. No acute fractures. IMPRESSION: 1. Elevated right hemidiaphragm. 2. Borderline cardiomegaly. ACT 112: Negative or not required by law. Electronically signed by: Jimmie Castellanos M.D. 12/17/2023 2:01 PM Abdomen/Pelvis CT 12/17/23 14:[address] WITHOUT CONTRAST CT DOSE: 6828.04 mGy.cm HISTORY: Altered mental status. infection TECHNIQUE: Multiaxial CT images of the abdomen and pelvis were performed without contrast. A dose lowering technique was utilized adhering to the principles of ALARA. COMPARISON STUDY: None. FINDINGS: There is a 2.4 cm thick-walled cavitary focus within the base of the left lower lobe on image 87. The right lung base is clear. No acute fractures identified. Degenerative changes within the lower lumbar spine. Distended gallbladder without gallbladder wall thickening. Hepatic steatosis. The unenhanced pancreas, spleen, and adrenal glands unremarkable. Mild bilateral perinephric edema is noted. No ureteral stones. No hydronephrosis. A few bilateral hypodense lesions seen within the kidneys. These are incompletely characterize on this noncontrast study but favor cysts. Dominant right renal lesion measures 2.7 cm. The dominant left renal lesion measures 2.3 cm. Further characterization with a follow-up nonemergent renal ultrasound is recommended. Normal caliber abdominal aorta. No retroperitoneal or pelvic lymphadenopathy. The bladder is unremarkable. There is an abnormal gas and fluid collection loculated between the prostate gland and rectum on image 402 measuring approximately 4.1 x 2.1 cm. There is also abnormal thickening within the right puborectalis sling with a possible small tubular tract extending to the right perianal location. This may represent a right perianal fistula best seen on images 410 through 431. Mild perianal fat stranding is noted. Therefore, the abnormal gas and fluid collection located between the prostate gland and rectum may represent supralevator extension of a perianal fistula with abscess formation. Clinical correlation recommended to exclude the possibility of hydrogel placement in the setting of prior prostate radiation therapy. Suboptimal evaluation for bowel pathology due to the lack of intravenous and oral contrast. However, no evidence for a bowel obstruction. Normal appendix. IMPRESSION: 1. There is an abnormal gas and fluid collection loculated between the prostate gland and rectum measuring approximately 4.1 x 2.1 cm. There is also abnormal thickening within the right puborectalis sling with a possible small tubular tract extending to the right perianal location. Therefore, the abnormal gas and fluid collection located between the prostate gland and rectum may represent supralevator extension of a right-sided perianal fistula with abscess formation. Clinical correlation recommended to exclude the possibility of hydrogel placement in the setting of prior prostate radiation therapy which could also account for this abnormal gas and fluid collection posterior to the prostate gland. 2. Mild bilateral perinephric edema. This may be chronic. Recommend correlation with urinalysis to exclude the possibility of a pyelonephritis. 3. Distended gallbladder. No gallbladder wall thickening. 4. Bilateral renal hypodense lesions. These are technically indeterminate on this study but favor cysts. Follow-up nonemergent renal ultrasound recommended for confirmation. 5. A 2.4 cm thick-walled cavitary focus within the base of the left lower lobe. This could represent a cavitary pneumonia. However, [address] follow-up recommended to ensure resolution. 6. Additional findings as described above. ACT 112: Positive. There are findings on this exam that require communication between the performing entity and the patient following Patient Test Result Information Act ([place] Act 112) guidelines. Electronically signed by: Jimmie Castellanos M.D. 12/17/2023 3:17 PM Discharge Plan Visit Data Chief Complaint: Altered Mental Status ED Provider: Carlos Solo Discharge Problem: Sepsis, Abscess, perianal, Acute pyelonephritis, Pneumonia Forms Stand Alone Forms: [facility] Prescriptions Prescriptions: No Action atenolol 25 mg tablet 25 mg PO QAM chlorthalidone 25 mg tablet 25 mg PO QAM enalapril maleate 10 mg tablet 10 mg PO QAM Rx Instructions: TAKE WITH 20MG EVERY MORNING = 30MG DAILY naproxen 500 mg tablet 500 mg PO BID PRN (Reason: Pain) simvastatin 20 mg tablet 20 mg PO HS enalapril maleate 20 mg tablet 20 mg PO QAM Rx Instructions: TAKE WITH 10MG EVERY MORNING = 30MG DAILY DOSE Referrals Referrals: Raul Still MD [Primary Care Provider] -
[2023-12-17] MEDS: ACETAMINOPHEN 1,000 MG/100 ML VIAL IV STA (18:01)
--- NOTE | 2023-12-17 18:29 | Critical Care Consultation ---
Date of Consultation December 17, 2023 Assessment & Plan (1) DICK (acute kidney injury): (2) Encephalopathy: (3) Hyponatremia: (4) Sepsis: (5) Abscess: (6) Hypertension: (7) Migraine: (8) Dyslipidemia: Plan Reason Critically Ill: 57-year-old male presented to the hospital with altered mental status, past medical history of hypertension and dyslipidemia. Recently he also has a lesion in the right knee for which she was supposed to have biopsy done tomorrow done well. Sent to the ICU for sepsis and under mental status Neuro - [facility] ICU: Unable to assess --Metabolic encephalopathy Likely related to sepsis Follow-up TSH Patient is hyponatremic as well as febrile CT head 12/17/2023 negative for any acute intracranial abnormality Cardiac - -- History of hypertension Unable to take p.o. medications right now Give IV medications as needed Respiratory - -- Cavitary lesion in the left lower lobe Unfortunately there is no other imaging to compare Will get CT of the chest without contrast --Elevated right hemidiaphragm GI - No acute issues RENAL/LYTES - -- DICK Follow-up urine lites Monitor BUN/creatinine Avoid nephrotoxic medications Strict ins and outs -- HAGMA Delta-delta: 1.3, pure anion gap Likely sec to lactic acidosis Follow up serum osm, urine osm, urine lytes Follow up ABG Monitor --Hyponatremia with hypochloremia Volume status patient seems to be dehydrated so hypovolemic Follow up serum osmolality - -- Collection of fluid and gas posterior to the prostate and rectum Likely an abscess and source of infection Urology as well as surgery has been consulted Continue with broad-spectrum antibiotic ENDO - -- ICU hypoglycemia protocol HEME - -- Normocytic anemia Monitor H&H ID - -- Perianal/periprosthetic abscess CAT scan finding does not go with Kati's gangrene Continue with broad-spectrum antibiotics --Prophylaxis VTE: IPC GI: Pantoprazole Lines: Peripheral Diet: N.p.o. Plan: Follow-up procalcitonin, ESR, CRP, ABG Follow-up TSH Patient did get 4 mg of Ativan and 5 mg of droperidol prior to me seeing him. Need to get in touch with urology as well as surgery as I do think the source of infection is most likely the abscess. Case discussed with Dr. Jean He got vancomycin and cefepime in the ED. I will give him a dose of Flagyl and change cefepime to Zosyn Tylenol for fever Patient is able to maintain his airway right now but if there is any worsening in his mental status and if there is any compromise in keeping the airway patent will intubate Patient's critical condition was explained to the patient's brother as well as [id number] who are at bedside and help with history I have personally spent 62 minutes of critical care time in the direct management of this patient. This is a life/limb threatening event. This includes time spent evaluating patient, direct bedside care, chart review, placing orders, interpretation of diagnostic studies, discussion with consultants, patient, and family members, as well as other required patient management activities. This time is exclusive of all separately billable procedures, and teaching time and separate from and in addition to any other critical care service time. History of Present Illness History of Present Illness 57-year-old male presented to the hospital with altered mental status Past medical history: hypertension and dyslipidemia. Recently he also has a lesion in the right knee for which she was supposed to have biopsy done tomorrow done well Patient's brother and juufsh-il-vyi were in the room at the time of examination. History was obtained from them. As per the brother patient went to [place] yesterday to have his right knee checked. He was upset that as they did not do anything distal to the knee and asked him to come back again tomorrow. Since last night he has been bit off and today in the morning patient has not been responsive. He has been spiking fever in the ED. He has been given a dose of vancomycin and cefepime. No recent travel history. No going out into the [place] because of the right knee pain. He does have a dog at home. No known history of tick bites. As per the brother he does not have any knowledge that patient has any hemorrhoids Patient is heterosexual. No known history of unsafe sexual practices Social history: Lifetime non-smoker, no alcohol. 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 Allergies Allergy/AdvReac Type Severity Reaction Status Date / Time No Known Allergies Allergy Unverified 12/17/23 15:30 Home Medications Medication Instructions Recorded Confirmed Type atenolol 25 mg tablet 25 mg PO QAM 12/17/23 12/17/23 History chlorthalidone 25 mg tablet 25 mg PO QAM 12/17/23 12/17/23 History enalapril maleate 10 mg tablet 10 mg PO QAM 12/17/23 12/17/23 History enalapril maleate 20 mg tablet 20 mg PO QAM 12/17/23 12/17/23 History naproxen 500 mg tablet 500 mg PO BID PRN Pain 12/17/23 12/17/23 History simvastatin 20 mg tablet 20 mg PO HS 12/17/23 12/17/23 History Patient History Social History Smoking Status: Never smoker Preferred Language: Bel[place]ian Feels Safe at Home: Yes Review of Systems 2 Review of Systems: Unobtainable due to cognitive status Physical Exam 2 Physical Exam: Constitutional: No acute distress HEENT: PERRLA Respiratory system: Good air entry bilaterally, no wheeze, no rhonchi, no crackles Abdomen: Soft, nontender, nondistended, positive bowel sounds x4 Extremities: +2 pulses bilaterally radialis/ dorsalis pedis, no cyanosis, no edema, minimal petechial lesions appreciated on the right leg blanching Neuro: Restless, moving all extremities spontaneously Psych: Unable to assess G/U: Positive Duffy, erythema appreciated around the perianal area more on the right side Skin: no rashes, warm and dry Lymphatic: no cervical or axillary lymphadenopathy Results & Data Results & Data Vital Signs (Past 12 Hours) Vital Signs Temp Pulse Pulse Resp BP BP Pulse Ox 12/17/23 17:30 118 H 17 142/59 H 97 12/17/23 17:15 116 H 12/17/23 17:00 116 H 24 128/69 98 12/17/23 16:34 106 H 16 138/80 97 12/17/23 16:00 102 H 16 120/71 97 12/17/23 15:48 110 H 19 107/73 99 12/17/23 15:30 110 H 20 107/82 97 12/17/23 15:13 108 H 22 99 12/17/23 14:57 38.1 C H 12/17/23 14:31 125 H 15 124/88 85 L 12/17/23 14:07 109 H 12/17/23 14:01 103 H 22 100/58 L 97 12/17/23 13:30 112 H 18 117/91 99 12/17/23 13:21 106 H 20 137/65 100 12/17/23 13:13 111 H 20 118/62 98 12/17/23 13:10 108 H 18 118/62 95 12/17/23 13:00 82 L O2 Del Method 12/17/23 17:30 Room Air 12/17/23 17:15 12/17/23 17:00 Room Air 12/17/23 16:34 Room Air 12/17/23 16:00 Room Air 12/17/23 15:48 Room Air 12/17/23 15:30 Room Air 12/17/23 15:13 Room Air 12/17/23 14:57 12/17/23 14:31 12/17/23 14:07 12/17/23 14:01 12/17/23 13:30 12/17/23 13:21 Room Air 12/17/23 13:13 12/17/23 13:10 12/17/23 13:00 Laboratory Results 12/17/23 13:10 12/17/23 13:10 Coding Level of Care Code 49674 CRITICAL CARE 1ST 30-74M Diagnoses DICK (acute kidney injury) N17.9 Encephalopathy G93.40 Hyponatremia E87.1 Sepsis A41.9 Abscess L02.91 Hypertension I10 Migraine G43.909 Dyslipidemia E78.5
[2023-12-17] MEDS: metroNIDAZOLE 500 MG/100 ML BAG IV STA (18:36)
[2023-12-17 18:41] LABS: Base Excess ABG -3.8 mEq/L (-9-1.8); HCO3 ABG 19 mmol/L (19-24); Oxygen Saturation ABG 97.5 % (90-95); PCO2 ABG 27 mmHg (35-46); PO2 ABG 70 mmHg (80-95); pH ABG 7.45 (7.35-7.45)
[2023-12-17 18:42] LABS: Allen Test Pos (Pos)
[2023-12-17 19:03] LABS: Thyroid Stimulating Hormone 2.054 uIu/ml (0.300-4.500)
[2023-12-17] MEDS: PIPERACILLIN/TAZOBACTAM 4.5 GM/100ML D5W IV ONE (19:08)
[2023-12-17] MEDS: PIPER/TAZO 4.5g in D5W MINI-B 100 ML IV ONE (19:11)
[2023-12-17 19:14] LABS: C Reactive Protein 31.33 mg/dl (0-0.5)
[2023-12-17 19:15] LABS: Acetaminophen 3 ug/ml (10-30); Salicylate < 3.0 mg/dl (3.0-30)
--- NOTE | 2023-12-17 19:38 | History & Physical Report ---
Date of Service December 17, 2023 Assessment & Plan (1) Encephalopathy: Plan: - likely secondary to sepsis - CT head negative for any acute intracranial abnormality - UDS negative (2) Sepsis: Plan: Patient presents tachycardic, febrile, with temperature 38.1 C, white blood cell count 24.9 K Procalcitonin elevated Biofire - negative Blood cultures pending Urine culture pending Received cefepime and vancomycin in the ED Cavitary lesion noted at left lower lung (on CT abd/pelvis), will obtain chest CT to further evaluate Abscess - perirectal/periprostatic - gas and fluid collection loculated between the prostate gland and rectum measuring approximately 4.1 x 2.1 cm. poss. 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 - Discussed with urology (Dr. Turk) and gen. surgery (Dr. Simpson) - would recommend to discuss with IR for poss. drainage / poss. tertiary center for further eval and transfer - contacted [facility] - per IR collection too small for drainage and per surgery no need for acute surgical intervention unless IR can drain it -> therefore no need for transfer, they agree with ICU admission and further work up and treatment of sepsis - cont. broad spectrum antibiotics, per ICU (3) DICK (acute kidney injury): Plan: - Cr elevated at 2.2, likely secondary to sepsis - cont. to closely monitor renal function, urine output - avoid nephrotoxic agents (4) Hyponatremia: Plan: - with hypochloremia - received IVF NS in the ED - pt seems dehydrated - cont. to closely monitor BMP AGMA - likely secondary to lactic acidosis - lactate improved after IVF - cont. to monitor - management per ICU Anemia - Hgb 9.0 - cont. to monitor H&H History of Present Illness Chief Complaint: AMS Primary Care Provider: Raul Still MD Pt is a 57 M w/ hx of HTN, dyslipidemia, lumbosacral DDD, ? lymphoma who presents with altered mental status and sepsis. Yesterday patient was evaluated by orthopedic oncology at [facility], by Dr. Sebas Sheridan. Patient has history of right distal thigh/knee pain. Patient had x-ray and MRI done. Right femur x-ray consistent with lytic bone lesion of right distal femoral metaphysis and epiphysis. 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 Per radiology suggestion, also possibility of osteomyelitis. It was recommended that patient would have a biopsy, which was scheduled for December 18, 2023. Patient's brother is present at the bedside and provides history. As patient is unable to provide any history at this time. Brother says that after patient cam e back from [place] he was very irritable, and later was apologizing that he was very irritable. This morning his brother found him in bed and he was unable to wake him up, however patient was moving around in bed but not opening his eyes or responsive to him. Therefore he was brought to the ER. Workup in the ER suggestive of sepsis, with tachycardia, fever with temperature 38.1 C, white blood cell count elevated at 24.9 K. Patient also was found hyponatremic, and with elevated creatinine and lactic acid. He also received Ativan 4 mg and droperidol 5 mg, for agitation. Currently laying in bed, moving around however not opening his eyes or responsive to me. Discussed with ICU physician, Dr. Armstrong, as well as general surgeon Dr. Montejo, and urology, Dr. Turk. Also discussed with [facility] for possible transfer, at this point, they don't feel that patient needs urgent intervention from surgery and IR feels that collection is too small to drain. Pt will be admitted to ICU for sepsis, and will continue broad spectrum antibiotics. Allergies Allergy/AdvReac Type Severity Reaction Status Date / Time No Known Allergies Allergy Unverified 12/17/23 15:30 Home Medications Medication Instructions Recorded Confirmed Type atenolol 25 mg tablet 25 mg PO QAM 12/17/23 12/17/23 History chlorthalidone 25 mg tablet 25 mg PO QAM 12/17/23 12/17/23 History enalapril maleate 10 mg tablet 10 mg PO QAM 12/17/23 12/17/23 History enalapril maleate 20 mg tablet 20 mg PO QAM 12/17/23 12/17/23 History naproxen 500 mg tablet 500 mg PO BID PRN Pain 12/17/23 12/17/23 History simvastatin 20 mg tablet 20 mg PO HS 12/17/23 12/17/23 History Past Med/Surg History Medical History (Updated 12/17/23 @ 19:58 by Carlos Solo MD) Dyslipidemia Hypertension Social History Smoking Status: Never smoker Preferred Language: Indonesian Feels Safe at Home: Yes Review of Systems Review of Systems: Unobtainable due to cognitive status Physical Exam Constitutional: WD/WN, vitals as above Eyes: PERRL, conjunctivae normal, anicteric sclerae ENMT: external ear and nose normal, oropharynx normal Neck: normal visual inspection Respiratory: normal respiratory effort, lungs clear to auscultation Cardiovascular: RRR, no murmur, no edema Chest (Breasts): Chest: normal inspection of chest Gastrointestinal (Abdomen): normal bowel sounds, soft, nontender, no hepatosplenomegaly Musculoskeletal: Head/Neck/Chest: normocephalic and head atraumatic Extremities: extremities normal to inspection (r knee edema, no erythema, moves extremities) Skin: no rashes, warm and dry Neurologic: restless, moving extremities, does not open eyes, does not respond to voice or touch Results & Data Results & Data Vital Signs (Past 12 Hours) Vital Signs Temp Pulse Pulse Resp BP BP Pulse Ox 12/17/23 19:00 118 H 20 118/71 95 12/17/23 18:39 115 H 18 145/82 H 97 12/17/23 18:30 118 H 21 94 12/17/23 18:00 118 H 18 122/83 98 12/17/23 18:00 116 H 24 122/83 100 12/17/23 17:40 93 12/17/23 17:30 119 H 18 142/59 H 98 12/17/23 17:30 118 H 17 142/59 H 97 12/17/23 17:15 116 H 12/17/23 17:10 116 H 18 128/69 91 12/17/23 17:00 112 H 25 H 114/69 91 12/17/23 17:00 116 H 24 128/69 98 12/17/23 16:40 117 H 16 94 12/17/23 16:34 106 H 16 138/80 97 12/17/23 16:30 108 H 24 138/80 92 12/17/23 16:20 118 H 29 H 118/71 94 12/17/23 16:00 109 H 24 120/71 93 12/17/23 16:00 102 H 16 120/71 97 12/17/23 15:48 107/73 94 12/17/23 15:48 110 H 19 107/73 99 12/17/23 15:30 116 H 20 107/82 95 12/17/23 15:30 110 H 20 107/82 97 12/17/23 15:13 111 H 22 132/71 90 12/17/23 15:13 108 H 22 99 12/17/23 15:00 100 H 19 133/61 97 12/17/23 14:57 38.1 C H 12/17/23 14:31 125 H 15 124/88 85 L 12/17/23 14:07 109 H 12/17/23 14:01 103 H 22 100/58 L 97 12/17/23 13:30 112 H 18 117/91 99 12/17/23 13:21 106 H 20 137/65 100 12/17/23 13:13 111 H 20 118/62 98 12/17/23 13:10 108 H 18 118/62 95 12/17/23 13:00 82 L O2 Del Method 12/17/23 19:00 12/17/23 18:39 Room Air 12/17/23 18:30 12/17/23 18:00 12/17/23 18:00 Room Air 12/17/23 17:40 12/17/23 17:30 12/17/23 17:30 Room Air 12/17/23 17:15 12/17/23 17:10 12/17/23 17:00 12/17/23 17:00 Room Air 12/17/23 16:40 12/17/23 16:34 Room Air 12/17/23 16:30 Room Air 12/17/23 16:20 12/17/23 16:00 Room Air 12/17/23 16:00 Room Air 12/17/23 15:48 Room Air 12/17/23 15:48 Room Air 12/17/23 15:30 Room Air 12/17/23 15:30 Room Air 12/17/23 15:13 Room Air 12/17/23 15:13 Room Air 12/17/23 15:00 Room Air 12/17/23 14:57 12/17/23 14:31 12/17/23 14:07 12/17/23 14:01 12/17/23 13:30 12/17/23 13:21 Room Air 12/17/23 13:13 12/17/23 13:10 12/17/23 13:00 Laboratory Results 12/17/23 12/17/23 12/17/23 Range/Units 18:34 18:20 17:51 WBC (4.8-10.8) K/ul RBC (4.70-6.10) M/uL Hgb (14.0-18.0) g/dl POC Hgb (14.0-18.0) g/dl Hct (42.0-52.0) % POC Hct (42-52) % MCV (80.0-100.0) fL MCH (25.0-34.0) pg MCHC (32.0-36.0) g/dL RDW Std Deviation (36.4-46.3) fL RDW Coeff of Xavier (11.5-14.5) % Plt Count (130-400) K/uL MPV (9.4-12.4) fL Immature Gran % (Auto) % Neut % (Auto) % Lymph % (Auto) % [place] % (Auto) % Eos % (Auto) % Baso % (Auto) % Neut # (Auto) (1.40-6.50) K/uL Lymph # (Auto) (1.20-3.40) K/uL [place] # (Auto) (0.11-0.59) K/uL Eos # (Auto) (0.00-0.50) K/uL Baso # (Auto) (0.00-0.20) K/uL Immature Gran # (Auto) (0.01-0.20) K/uL Polychromasia ESR 95 H (0-20) mm/hr ABG pH 7.45 (7.35-7.45) ABG pCO2 27 L (35-46) mmHg ABG pO2 70 L (80-95) mmHg ABG HCO3 19 (19-24) mmol/L ABG O2 Saturation 97.5 H (90-95) % ABG Base Excess -3.8 (-9-1.8) mEq/L Wil Test Pos (Pos) Oxygen Given RA POC Sodium (135-144) mmol/L Sodium (136-145) mmol/L POC Potassium (3.3-5.0) mmol/L Potassium (3.5-5.1) mmol/L POC Chloride (101-112) mmol/L Chloride (98-107) mmol/L Carbon Dioxide (21-32) mmol/L POC Total CO2 (24-31) mmol/L Anion Gap (3-11) POC Anion Gap (16-25) mmol/L POC BUN (7-18) mg/dl BUN (6-23) mg/dl Creatinine (0.6-1.4) mg/dl POC Creatinine (0.6-1.3) mg/dl Est Cr Clr Drug Dosing Est GFR ( Amer) ml/min Est GFR (Non-Af Amer) ml/min BUN/Creatinine Ratio (10-20) Glucose (70-99(Fasting)) mg/dl POC Glucose (other) (70-99) mg/dl Osmolality 280 (280-300) mOsm/kg Lactate (0.4-2.0) mmol/L Calcium (8.6-10.3) mg/dl POC Ioniz Calcium Izaiah (1.12-1.32) mmol/l Total Bilirubin (0.2-1.0) mg/dl Direct Bilirubin (0-0.2) mg/dl AST (13-39) U/L ALT (7-52) U/L Alkaline Phosphatase (34-104) U/L Troponin I High Sens (0-20) pg/ml C-Reactive Protein (0-0.5) mg/dl Total Protein (6.0-8.3) gm/dl Albumin (3.4-5.0) gm/dl Lipase (11-82) U/L Procalcitonin 1.35 H (0-0.5) ng/ml TSH (0.300-4.500) uIu/ml Urine Color Urine Appearance (Clear) Urine pH (4.5-7.5) Ur Specific [place] (1.000-1.030) Urine Protein (Negative) Urine Glucose (UA) (Negative) Urine Ketones (Negative) Urine Blood (Negative) Urine Nitrite (Negative) Urine Bilirubin (Negative) Urine Urobilinogen (Negative) Ur Leukocyte Esterase (Negative) Urine WBC (Auto) (0-5) /hpf Urine RBC (Auto) (0-4) /hpf U Hyaline Cast (Auto) (0-5) /lpf U Epithel Cells (Auto) (0-5) /lpf Urine Bacteria (Auto) (Negative) Urine Yeast Salicylates < 3.0 L (3.0-30) mg/dl Urine Opiates Screen (Neg) Ur Methadone, Qual (Neg) Acetaminophen 3 L (10-30) ug/ml Urine Barbiturates (Neg) Ur Phencyclidine (PCP) (Neg) U Amphetamin/Meth Scrn (Neg) MDMA (Ecstasy) Screen (Neg) U Benzodiazepines Scrn (Neg) Ur Cocaine Metabolite (Neg) U Marijuana (THC) Screen (Neg) Ethyl Alcohol mg/dL < 10.0 (<10.0) mg/dl Adenovirus (PCR) (NotDetected) B. pertussis DNA (PCR) (NotDetected) B.parapertussis DNA PCR (NotDetected) C. pneumoniae DNA (PCR) (NotDetected) Coronavirus OC43 (PCR) (NotDetected) Coronavirus HKU1 (PCR) (NotDetected) Coronavirus 229E (PCR) (NotDetected) SARS-CoV-2 (PCR) (NotDetected) Coronavirus NL63 (PCR) (NotDetected) Human Metapneumovir PCR (NotDetected) Influenza Type A (PCR) (NotDetected) Influenza Type B (PCR) (NotDetected) M. pneumoniae (PCR) (NotDetected) Parainfluenza 1 (PCR) (NotDetected) Parainfluenza 2 (PCR) (NotDetected) Parainfluenza 3 (PCR) (NotDetected) Parainfluenza 4 (PCR) (NotDetected) RSV (PCR) (NotDetected) Entero/Rhino (PCR) (NotDetected) 12/17/23 12/17/23 12/17/23 Range/Units 15:23 14:50 14:45 WBC (4.8-10.8) K/ul RBC (4.70-6.10) M/uL Hgb (14.0-18.0) g/dl POC Hgb (14.0-18.0) g/dl Hct (42.0-52.0) % POC Hct (42-52) % MCV (80.0-100.0) fL MCH (25.0-34.0) pg MCHC (32.0-36.0) g/dL RDW Std Deviation (36.4-46.3) fL RDW Coeff of Xavier (11.5-14.5) % Plt Count (130-400) K/uL MPV (9.4-12.4) fL Immature Gran % (Auto) % Neut % (Auto) % Lymph % (Auto) % [place] % (Auto) % Eos % (Auto) % Baso % (Auto) % Neut # (Auto) (1.40-6.50) K/uL Lymph # (Auto) (1.20-3.40) K/uL [place] # (Auto) (0.11-0.59) K/uL Eos # (Auto) (0.00-0.50) K/uL Baso # (Auto) (0.00-0.20) K/uL Immature Gran # (Auto) (0.01-0.20) K/uL Polychromasia ESR (0-20) mm/hr ABG pH (7.35-7.45) ABG pCO2 (35-46) mmHg ABG pO2 (80-95) mmHg ABG HCO3 (19-24) mmol/L ABG O2 Saturation (90-95) % ABG Base Excess (-9-1.8) mEq/L Wil Test (Pos) Oxygen Given POC Sodium (135-144) mmol/L Sodium (136-145) mmol/L POC Potassium (3.3-5.0) mmol/L Potassium (3.5-5.1) mmol/L POC Chloride (101-112) mmol/L Chloride (98-107) mmol/L Carbon Dioxide (21-32) mmol/L POC Total CO2 (24-31) mmol/L Anion Gap (3-11) POC Anion Gap (16-25) mmol/L POC BUN (7-18) mg/dl BUN (6-23) mg/dl Creatinine (0.6-1.4) mg/dl POC Creatinine (0.6-1.3) mg/dl Est Cr Clr Drug Dosing Est GFR ( Amer) ml/min Est GFR (Non-Af Amer) ml/min BUN/Creatinine Ratio (10-20) Glucose (70-99(Fasting)) mg/dl POC Glucose (other) (70-99) mg/dl Osmolality (280-300) mOsm/kg Lactate 2.4 H* (0.4-2.0) mmol/L Calcium (8.6-10.3) mg/dl POC Ioniz Calcium Izaiah (1.12-1.32) mmol/l Total Bilirubin (0.2-1.0) mg/dl Direct Bilirubin (0-0.2) mg/dl AST (13-39) U/L ALT (7-52) U/L Alkaline Phosphatase (34-104) U/L Troponin I High Sens (0-20) pg/ml C-Reactive Protein (0-0.5) mg/dl Total Protein (6.0-8.3) gm/dl Albumin (3.4-5.0) gm/dl Lipase (11-82) U/L Procalcitonin (0-0.5) ng/ml TSH (0.300-4.500) uIu/ml Urine Color Yellow Urine Appearance Cloudy A (Clear) Urine pH 5.0 (4.5-7.5) Ur Specific [place] 1.017 (1.000-1.030) Urine Protein 1+ H (Negative) Urine Glucose (UA) Negative (Negative) Urine Ketones Negative (Negative) Urine Blood 2+ H (Negative) Urine Nitrite Negative (Negative) Urine Bilirubin Negative (Negative) Urine Urobilinogen Negative (Negative) Ur Leukocyte Esterase 2+ H (Negative) Urine WBC (Auto) >30 H (0-5) /hpf Urine RBC (Auto) 0-4 (0-4) /hpf U Hyaline Cast (Auto) 1-5 (0-5) /lpf U Epithel Cells (Auto) 0-5 (0-5) /lpf Urine Bacteria (Auto) Negative (Negative) Urine Yeast Not Reportable Salicylates (3.0-30) mg/dl Urine Opiates Screen Neg (Neg) Ur Methadone, Qual Neg (Neg) Acetaminophen (10-30) ug/ml Urine Barbiturates Neg (Neg) Ur Phencyclidine (PCP) Neg (Neg) U Amphetamin/Meth Scrn Neg (Neg) MDMA (Ecstasy) Screen Neg (Neg) U Benzodiazepines Scrn Neg (Neg) Ur Cocaine Metabolite Neg (Neg) U Marijuana (THC) Screen Neg (Neg) Ethyl Alcohol mg/dL (<10.0) mg/dl Adenovirus (PCR) Not Detected (NotDetected) B. pertussis DNA (PCR) Not Detected (NotDetected) B.parapertussis DNA PCR Not Detected (NotDetected) C. pneumoniae DNA (PCR) Not Detected (NotDetected) Coronavirus OC43 (PCR) Not Detected (NotDetected) Coronavirus HKU1 (PCR) Not Detected (NotDetected) Coronavirus 229E (PCR) Not Detected (NotDetected) SARS-CoV-2 (PCR) Not Detected (NotDetected) Coronavirus NL63 (PCR) Not Detected (NotDetected) Human Metapneumovir PCR Not Detected (NotDetected) Influenza Type A (PCR) Not Detected (NotDetected) Influenza Type B (PCR) Not Detected (NotDetected) M. pneumoniae (PCR) Not Detected (NotDetected) Parainfluenza 1 (PCR) Not Detected (NotDetected) Parainfluenza 2 (PCR) Not Detected (NotDetected) Parainfluenza 3 (PCR) Not Detected (NotDetected) Parainfluenza 4 (PCR) Not Detected (NotDetected) RSV (PCR) Not Detected (NotDetected) Entero/Rhino (PCR) Not Detected (NotDetected) 12/17/23 12/17/23 12/17/23 Range/Units 14:02 13:30 13:10 WBC 24.98 H (4.8-10.8) K/ul RBC 3.48 L (4.70-6.10) M/uL Hgb 9.0 L (14.0-18.0) g/dl POC Hgb 10.2 L (14.0-18.0) g/dl Hct 27.3 L (42.0-52.0) % POC Hct 30 L (42-52) % MCV 78.4 L (80.0-100.0) fL MCH 25.9 (25.0-34.0) pg MCHC 33.0 (32.0-36.0) g/dL RDW Std Deviation 41.1 (36.4-46.3) fL RDW Coeff of Xavier 14.5 (11.5-14.5) % Plt Count 587 H (130-400) K/uL MPV 9.4 (9.4-12.4) fL Immature Gran % (Auto) 4.2 % Neut % (Auto) 84.8 % Lymph % (Auto) 4.3 % [place] % (Auto) 6.1 % Eos % (Auto) 0.2 % Baso % (Auto) 0.4 % Neut # (Auto) 21.20 H (1.40-6.50) K/uL Lymph # (Auto) 1.07 L (1.20-3.40) K/uL [place] # (Auto) 1.52 H (0.11-0.59) K/uL Eos # (Auto) 0.05 (0.00-0.50) K/uL Baso # (Auto) 0.09 (0.00-0.20) K/uL Immature Gran # (Auto) 1.05 H (0.01-0.20) K/uL Polychromasia 1+ ESR (0-20) mm/hr ABG pH (7.35-7.45) ABG pCO2 (35-46) mmHg ABG pO2 (80-95) mmHg ABG HCO3 (19-24) mmol/L ABG O2 Saturation (90-95) % ABG Base Excess (-9-1.8) mEq/L Wil Test (Pos) Oxygen Given POC Sodium 124 L (135-144) mmol/L Sodium 125 L (136-145) mmol/L POC Potassium 5.2 H (3.3-5.0) mmol/L Potassium 4.9 (3.5-5.1) mmol/L POC Chloride 93 L (101-112) mmol/L Chloride 90 L (98-107) mmol/L Carbon Dioxide 19 L (21-32) mmol/L POC Total CO2 21 L (24-31) mmol/L Anion Gap 16 H (3-11) POC Anion Gap 17.0 (16-25) mmol/L POC BUN 39 H (7-18) mg/dl BUN 47 H (6-23) mg/dl Creatinine 2.19 H (0.6-1.4) mg/dl POC Creatinine 2.4 H (0.6-1.3) mg/dl Est Cr Clr Drug Dosing Not Reportable Est GFR ( Amer) 37.6 ml/min Est GFR (Non-Af Amer) 32.5 ml/min BUN/Creatinine Ratio 21.5 H (10-20) Glucose 97 (70-99(Fasting)) mg/dl POC Glucose (other) 107 H (70-99) mg/dl Osmolality (280-300) mOsm/kg Lactate 4.2 H* (0.4-2.0) mmol/L Calcium 8.7 (8.6-10.3) mg/dl POC Ioniz Calcium Izaiah 1.08 L (1.12-1.32) mmol/l Total Bilirubin 0.5 (0.2-1.0) mg/dl Direct Bilirubin 0.1 (0-0.2) mg/dl AST 29 (13-39) U/L ALT 46 (7-52) U/L Alkaline Phosphatase 90 (34-104) U/L Troponin I High Sens 11.7 (0-20) pg/ml C-Reactive Protein 31.33 H (0-0.5) mg/dl Total Protein 7.7 (6.0-8.3) gm/dl Albumin 2.8 L (3.4-5.0) gm/dl Lipase 24 (11-82) U/L Procalcitonin (0-0.5) ng/ml TSH 2.054 (0.300-4.500) uIu/ml Urine Color Urine Appearance (Clear) Urine pH (4.5-7.5) Ur Specific [place] (1.000-1.030) Urine Protein (Negative) Urine Glucose (UA) (Negative) Urine Ketones (Negative) Urine Blood (Negative) Urine Nitrite (Negative) Urine Bilirubin (Negative) Urine Urobilinogen (Negative) Ur Leukocyte Esterase (Negative) Urine WBC (Auto) (0-5) /hpf Urine RBC (Auto) (0-4) /hpf U Hyaline Cast (Auto) (0-5) /lpf U Epithel Cells (Auto) (0-5) /lpf Urine Bacteria (Auto) (Negative) Urine Yeast Salicylates (3.0-30) mg/dl Urine Opiates Screen (Neg) Ur Methadone, Qual (Neg) Acetaminophen (10-30) ug/ml Urine Barbiturates (Neg) Ur Phencyclidine (PCP) (Neg) U Amphetamin/Meth Scrn (Neg) MDMA (Ecstasy) Screen (Neg) U Benzodiazepines Scrn (Neg) Ur Cocaine Metabolite (Neg) U Marijuana (THC) Screen (Neg) Ethyl Alcohol mg/dL (<10.0) mg/dl Adenovirus (PCR) (NotDetected) B. pertussis DNA (PCR) (NotDetected) B.parapertussis DNA PCR (NotDetected) C. pneumoniae DNA (PCR) (NotDetected) Coronavirus OC43 (PCR) (NotDetected) Coronavirus HKU1 (PCR) (NotDetected) Coronavirus 229E (PCR) (NotDetected) SARS-CoV-2 (PCR) (NotDetected) Coronavirus NL63 (PCR) (NotDetected) Human Metapneumovir PCR (NotDetected) Influenza Type A (PCR) (NotDetected) Influenza Type B (PCR) (NotDetected) M. pneumoniae (PCR) (NotDetected) Parainfluenza 1 (PCR) (NotDetected) Parainfluenza 2 (PCR) (NotDetected) Parainfluenza 3 (PCR) (NotDetected) Parainfluenza 4 (PCR) (NotDetected) RSV (PCR) (NotDetected) Entero/Rhino (PCR) (NotDetected) Diagnostic Findings CT abdomen/ pelvis IMPRESSION: 1. There is an abnormal gas and fluid collection loculated between the prostate gland and rectum measuring approximately 4.1 x 2.1 cm. There is also abnormal thickening within the right puborectalis sling with a possible small tubular tract extending to the right perianal location. Therefore, the abnormal gas and fluid collection located between the prostate gland and rectum may represent supralevator extension of a right-sided perianal fistula with abscess formation. Clinical correlation recommended to exclude the possibility of hydrogel placement in the setting of prior prostate radiation therapy which could also a ccount for this abnormal gas and fluid collection posterior to the prostate gland. 2. Mild bilateral perinephric edema. This may be chronic. Recommend correlation with urinalysis to exclude the possibility of a pyelonephritis. 3. Distended gallbladder. No gallbladder wall thickening. 4. Bilateral renal hypodense lesions. These are technically indeterminate on this study but favor cysts. Follow-up nonemergent renal ultrasound recommended for confirmation. 5. A 2.4 cm thick-walled cavitary focus within the base of the left lower lobe. This could represent a cavitary pneumonia. However, [address] follow-up recommended to ensure resolution. 6. Additional findings as described above. CT head 1. No acute intracranial findings. Exam mildly compromised by motion artifact. 2. No calvarial fractures identified. CXR 1. Elevated right hemidiaphragm. 2. Borderline cardiomegaly. Code Status & VTE Plan VTE Prophylaxis Plan VTE Prophylaxis will be ordered: Yes
[2023-12-17 20:20] LABS: Potassium Random Urine 43.8 mmol/L
--- NOTE | 2023-12-17 20:24 | CT Scan Report ---
Exam(s): CT CHEST Without Contrast EXAM: CT Chest Without Intravenous Contrast CLINICAL HISTORY: Sepsis. TECHNIQUE: Axial computed tomography images of the chest without intravenous contrast. CTDI is 27.01 mGy and DLP is 885.7 mGy-cm. Automated exposure control was utilized for the study. A dose lowering technique was utilized adhering to the principles of ALARA. COMPARISON: No relevant prior studies available. FINDINGS: Lungs: There is a 2.8 cm cavitary lesion of the base of the left lung with the rim measuring 0.9 cm. Interseptal thickening could relate to atelectasis and/or pulmonary edema. No mass. Pleural space: Unremarkable. No pneumothorax. No significant effusion. Heart: Unremarkable. No cardiomegaly. No significant pericardial effusion. No significant coronary artery calcifications. Bones/joints: There are degenerative changes of the spine. No acute fracture. No dislocation. Soft tissues: Unremarkable. Vasculature: Minimal atherosclerotic disease. No thoracic aortic aneurysm. Lymph nodes: Unremarkable. No enlarged lymph nodes. IMPRESSION: 1. There is a 2.8 cm cavitary lesion of the base of the left lung with the rim measuring 0.9 cm. This is concerning for cavitary malignancy, less likely cavitary pneumonia. 2. Interseptal thickening could relate to atelectasis and/or pulmonary edema. 3. Minimal atherosclerotic disease. Electronically signed by: Marilyn Mcfarlane MD 12/17/23 20:24 PM
[2023-12-17 20:28] LABS: Creatinine Urine Random 140.7 mg/dl
--- NOTE | 2023-12-17 20:48 | Urology Consultation ---
Date of Consultation December 17, 2023 Assessment & Plan (1) Abscess: Based on his CT scan, I think the fluid collection in the pelvis is more of a perirectal abscess than a prostatic abscess, as the abscess appears posterior to the seminal vesicles and outside the capsule of the prostate. I do not think t his is a good candidate for an attempt of transurethral unroofing. He may be a candidate for transrectal drainage by interventional radiology, although if more formal surgical intervention is required, I think there is a good chance that this would involve the rectum and colorectal surgery would need to be involved. (2) Sepsis: Current clinical picture is suspicious for sepsis, source is not entirely clear as possibilities have been raised for cavitary pneumonia, osteomyelitis and the pelvic/perirectal gas/fluid collection. Agree with broad-spectrum antibiotic coverage and supportive care. Blood and urine cultures are currently pending. If he does not clear, consider reimaging the pelvis to evaluate for any progression of this collection. (3) DICK (acute kidney injury): DICK is likely multifactorial. Would recommend fluid resuscitation and maximizing urinary drainage with Duffy catheter. No evidence of upper tract obstruction at this time, therefore would hold off on urologic intervention such as stent placement. History of Present Illness Reason for Consultation: Infection, question of abscess History of Present Illness This is a 57-year-old male who presented to the emergency department on 12/17/2023 with altered mental status. Most of the history was provided by his brother, as patient was unable to provide history for himself. He had recently been having leg pain which was being evaluated at [facility] in [place], with concern for possible lymphoma of the bone, potential osteomyelitis. Biopsy was scheduled, but before biopsy could be obtained, Mr. Barrera became progressively irritable and confused, eventually prompting his brother to bring him to the emergency department. Workup in the ED was notable for leukocytosis (WBC 24.9), anemia (hemoglobin 9.0). He was hyponatremic with sodium 125,, hyperkalemic with potassium 5.2. Creatinine was elevated at 2.19, although baseline is unknown. His lactate was also slightly elevated at 2.4. Urinalysis had 2+ blood, 2+ leukocyte esterase, negative nitrites, no bacteria or yeast seen. A CT scan of the abdomen and pelvis was performed. I independently reviewed these images. Both kidneys are in normal position. There are some exophytic portions of both kidneys which are incompletely characterized on this study. I do not appreciate any stones or hydronephrosis bilaterally. His bladder is somewhat distended. His prostate does not appear to be significantly enlarged. On the posterior aspect of the prostate, anterior to the rectum there is a apparent fluid collection with gas. This appears to be posterior to the seminal vesicles. Radiology made note of a 2.4 cm cavitary focus in the lower lobe of the left lung. Allergies Allergy/AdvReac Type Severity Reaction Status Date / Time No Known Allergies Allergy Unverified 12/17/23 15:30 Home Medications Medication Instructions Recorded Confirmed Type atenolol 25 mg tablet 25 mg PO QAM 12/17/23 12/17/23 History chlorthalidone 25 mg tablet 25 mg PO QAM 12/17/23 12/17/23 History enalapril maleate 10 mg tablet 10 mg PO QAM 12/17/23 12/17/23 History enalapril maleate 20 mg tablet 20 mg PO QAM 12/17/23 12/17/23 History naproxen 500 mg tablet 500 mg PO BID PRN Pain 12/17/23 12/17/23 History simvastatin 20 mg tablet 20 mg PO HS 12/17/23 12/17/23 History Patient History Medical History (Updated 12/17/23 @ 19:58 by Carlos Solo MD) Dyslipidemia Hypertension Social History Smoking Status: Never smoker Preferred Language: Upper Sorbian Feels Safe at Home: Yes Review of Systems Review of Systems: Patient unable to participate in review of systems due to mental status Physical Exam Physical Exam: Agitated, moving around in the stretcher Constitutional: Well-developed Neck: Normal to inspection Respiratory: Breathing comfortably on room air, no audible wheezing Cardiovascular: Slightly tachycardic, good blood pressure on the monitors. Gastrointestinal (Abdomen): Nondistended Musculoskeletal: No obvious deformities Skin: Warm and dry Neurologic: Moving all extremities Results & Data Vital Signs (Past 12 Hours) Vital Signs Temp Pulse Pulse Resp BP BP Pulse Ox 12/17/23 20:30 118 H 23 148/71 H 94 12/17/23 20:00 120 H 34 H 102/72 92 12/17/23 19:49 118 H 20 111/80 92 12/17/23 19:30 120 H 30 H 119/67 92 12/17/23 19:00 118 H 20 118/71 95 12/17/23 18:39 115 H 18 145/82 H 97 12/17/23 18:30 118 H 21 94 12/17/23 18:00 118 H 18 122/83 98 12/17/23 18:00 116 H 24 122/83 100 12/17/23 17:40 93 12/17/23 17:30 119 H 18 142/59 H 98 12/17/23 17:30 118 H 17 142/59 H 97 12/17/23 17:15 116 H 12/17/23 17:10 116 H 18 128/69 91 12/17/23 17:00 112 H 25 H 114/69 91 12/17/23 17:00 116 H 24 128/69 98 12/17/23 16:40 117 H 16 94 12/17/23 16:34 106 H 16 138/80 97 12/17/23 16:30 108 H 24 138/80 92 12/17/23 16:20 118 H 29 H 118/71 94 12/17/23 16:00 109 H 24 120/71 93 12/17/23 16:00 102 H 16 120/71 97 12/17/23 15:48 107/73 94 12/17/23 15:48 110 H 19 107/73 99 12/17/23 15:30 116 H 20 107/82 95 12/17/23 15:30 110 H 20 107/82 97 12/17/23 15:13 111 H 22 132/71 90 12/17/23 15:13 108 H 22 99 12/17/23 15:00 100 H 19 133/61 97 12/17/23 14:57 38.1 C H 12/17/23 14:31 125 H 15 124/88 85 L 12/17/23 14:07 109 H 12/17/23 14:01 103 H 22 100/58 L 97 12/17/23 13:30 112 H 18 117/91 99 12/17/23 13:21 106 H 20 137/65 100 12/17/23 13:13 111 H 20 118/62 98 12/17/23 13:10 108 H 18 118/62 95 12/17/23 13:00 82 L O2 Del Method 12/17/23 20:30 12/17/23 20:00 03/28/24 19:49 12/17/23 19:30 Room Air 12/17/23 19:00 12/17/23 18:39 Room Air 12/17/23 18:30 12/17/23 18:00 12/17/23 18:00 Room Air 12/17/23 17:40 12/17/23 17:30 12/17/23 17:30 Room Air 12/17/23 17:15 12/17/23 17:10 12/17/23 17:00 12/17/23 17:00 Room Air 12/17/23 16:40 12/17/23 16:34 Room Air 12/17/23 16:30 Room Air 12/17/23 16:20 12/17/23 16:00 Room Air 12/17/23 16:00 Room Air 12/17/23 15:48 Room Air 12/17/23 15:48 Room Air 12/17/23 15:30 Room Air 12/17/23 15:30 Room Air 12/17/23 15:13 Room Air 12/17/23 15:13 Room Air 12/17/23 15:00 Room Air 12/17/23 14:57 12/17/23 14:31 12/17/23 14:07 12/17/23 14:01 12/17/23 13:30 12/17/23 13:21 Room Air 12/17/23 13:13 12/17/23 13:10 12/17/23 13:00 PG Care Time/CCT Total # of Minutes Spent Total Time Spent with Patient: Total time spent is greater than 50% in coordination of care (as documented) at patient's floor/unit and/or counseling patient: Coding Level of Care Code 92623 OFFICE CONSULT LVL M Diagnoses Abscess L02.91 Sepsis A41.9 DICK (acute kidney injury) N17.9
[2023-12-17] MEDS ORDERED: HALOPERIDOL LACTATE 5 MG/ML 1 ML VIAL IV PRN (21:34)
[2023-12-17] MEDS: LACTATED RINGER'S 500 ML IV ONE (21:35)
[2023-12-17] MEDS: THIAMINE HCL 300 MG in SODIUM CHLORIDE 0.9% 50 ML IV STA (22:51)
[2023-12-17 22:52] LABS: Anion Gap 9 (3-11); Calcium 8.2 mg/dl (8.6-10.3); Carbon Dioxide 22 mmol/L (21-32); Chloride 99 mmol/L (98-107); Magnesium 1.2 mg/dl (1.7-2.4); Potassium 4.5 mmol/L (3.5-5.1); Sodium 130 mmol/L (136-145)
[2023-12-17] MEDS: Patient's HEIGHT &/or WEIGHT Needed STA (22:55)
[2023-12-17] MEDS: LACTATED RINGER'S 1,000 ML IV SCH (22:55)
[2023-12-17] MEDS: ICU Protocol for HYPERglycemia SCH (22:55)
[2023-12-17] MEDS: PIPERACILLIN/TAZOBACTAM 4.5 GM in DEXTROSE 5% MINI-B 100 ML IV SCH (22:56)
[2023-12-17 22:58] LABS: BUN Creatinine Ratio 23.5 (10-20); Blood Urea Nitrogen 35 mg/dl (6-23); Est GFR (African American) 59.9 ml/min; Est GFR (Non-African American) 51.7 ml/min; Glucose 108 mg/dl (70-99(Fasting)); Phosphorus 2.7 mg/dl (2.5-4.9)
[2023-12-17] MEDS: MAGNESIUM SULFATE / D5W 1 GM/100 ML BAG IV SCH (23:18)
[2023-12-18] MEDS: ACETAMINOPHEN 1,000 MG/100 ML VIAL IV PRN (00:21)
[2023-12-18 03:11] LABS: A calco-baum cmplx NotReported Not Detected (NotDetected); Bact fragilis Not Reported Not Detected (NotDetected); Blood Culture Id Panel See PCR Comment (NotDetected); C auris Not Reported Not Detected (NotDetected); Calbicans Not Reported Not Detected (NotDetected); Candida glabrata Not Reported Not Detected (NotDetected); Candida krusei Not Reported Not Detected (NotDetected); Cneoformans/gatti Not Reported Not Detected (NotDetected); Cparapsilosis Not Reported Not Detected (NotDetected); E cloacae compx Not Reported Not Detected (NotDetected); Efaecalis Not Reported Not Detected (NotDetected); Efaecium Not Reported Not Detected (NotDetected); Enterobacterales Not Reported Not Detected (NotDetected); Escherichia coli Not Reported Not Detected (NotDetected); H influenzae Not Reported Not Detected (NotDetected); K aerogenes Not Reported Not Detected (NotDetected); Koxytoca Not Reported Not Detected (NotDetected); Kpneumoniae grp Not Reported Not Detected (NotDetected); Lmonocyt Not Reported Not Detected (NotDetected); N meningitidis Not Reported Not Detected (NotDetected); P aeruginosa Not Reported Not Detected (NotDetected); Proteus spp Not Reported Not Detected (NotDetected); Salmonella spp Not Reported Not Detected (NotDetected); Smarcescens Not Reported Not Detected (NotDetected); Staph lugdunensis Not Reported Not Detected (NotDetected); Staph spp. Not Reported DETECTED (NotDetected); Staphaureus Not Reported DETECTED (NotDetected); Staphepi Not Reported Not Detected (NotDetected); Staphylococcus spp. DETECTED (NotDetected); Stenmaltophilia Not Reported Not Detected (NotDetected); Strep agal(GrpB) Not Reported Not Detected (NotDetected); Strep pneum Not Reported Not Detected (NotDetected); Strep pyog (GrpA) Not Reported Not Detected (NotDetected); Strep spp Not Reported Not Detected (NotDetected)
[2023-12-18 03:27] LABS: mecAC+MREJ Resistant Gene MRSA DETECTED (NotDetected)
[2023-12-18 04:35] LABS: Basophils # (auto) 0.06 K/uL (0.00-0.20); Basophils % (auto) 0.3 %; Eosinophils # (auto) 0.11 K/uL (0.00-0.50); Eosinophils % (auto) 0.6 %; Hemoglobin 8.2 g/dl (14.0-18.0); Immature Granulocytes # (auto) 0.62 K/uL (0.01-0.20); Immature Granulocytes % (auto) 3.3 %; Lymphocytes # (auto) 1.11 K/uL (1.20-3.40); Lymphocytes % (auto) 5.9 %; Mean Corpuscular Hemoglobin 25.5 pg (25.0-34.0); Mean Corpuscular Hgb Conc 32.8 g/dL (32.0-36.0); Mean Corpuscular Volume 77.9 fL (80.0-100.0); Mean Platelet Volume 9.2 fL (9.4-12.4); Monocytes # (auto) 1.26 K/uL (0.11-0.59); Monocytes % (auto) 6.7 %; Neutrophils # (auto) 15.67 K/uL (1.40-6.50); Neutrophils % (auto) 83.2 %; Platelet Count 559 K/uL (130-400); RDW Coefficient of Variation 14.4 % (11.5-14.5); RDW Standard Deviation 40.9 fL (36.4-46.3); Red Blood Count 3.21 M/uL (4.70-6.10); White Blood Count 18.83 K/ul (4.8-10.8)
[2023-12-18 04:53] LABS: BUN Creatinine Ratio 21.9 (10-20); Calcium 8.4 mg/dl (8.6-10.3); Creatinine Clr Calc Pharmacy 78.9 ml/min; Est GFR (Non-African American) 62.2 ml/min; Phosphorus 2.8 mg/dl (2.5-4.9); Potassium 4.2 mmol/L (3.5-5.1)
[2023-12-18] MEDS: VANCOMYCIN HCL 1,000 MG in SODIUM CHLORIDE 0.9% 250 ML IV SCH (05:22)
--- NOTE | 2023-12-18 07:17 | Hospitalist Progress Note ---
Date of Service December 18, 2023 Assessment & Plan (1) Encephalopathy: Plan: - likely secondary to sepsis - CT head negative for any acute intracranial abnormality - UDS negative - resolved, mental status back to baseline (2) Sepsis: Plan: MRSA bacteremia Patient presents tachycardic, febrile, with temperature 38.1 C, white blood cell count 24.9 K Procalcitonin elevated Biofire - negative Blood cultures - posit. for MRSA Urine culture pending Received cefepime and vancomycin in the ED, currently on vancomycin and zosyn Cavitary lesion noted at left lower lung (on CT abd/pelvis) obtained chest CT to further evaluate - 1. There is a 2.8 cm cavitary lesion of the base of the left lung with the rim measuring 0.9 cm. This is concerning for cavitary malignancy, less likely cavitary pneumonia. 2. Interseptal thickening could relate to atelectasis and/or pulmonary edema. 3. Minimal atherosclerotic disease. Etiology of cavitary lesion is not clear. Patient is supposed to have a PET/CT done as an outpatient. ID also consulted, as below. Abscess - perirectal/periprostatic - gas and fluid collection loculated between the prostate gland and rectum measuring approximately 4.1 x 2.1 cm. poss. 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 - Discussed with urology (Dr. Turk) and gen. surgery (Dr. Simpson) - would recommend to discuss with IR for poss. drainage / poss. tertiary center for furt her eval and transfer - contacted [facility] - per IR collection too small for drainage and per surgery no need for acute surgical intervention unless IR can drain it -> therefore no need for transfer, they agree with ICU admission and further work up and treatment of sepsis - cont. broad spectrum antibiotics, ID consulted Recommendations: - Continue IV vancomycin (dosing per Rx) - Continue pip-tazo 4.5 IV q8h for now - Obtain TTE - Repeat BCx daily until clear x48h - If persistent fevers/leukocytosis, low threshold to reimage perirectal abscess. If persistent/increasing then recommend radiology reevaluation for possible aspiration. If obtaining, please send for bacteria/fungal/AFB cultures and stains. - Given LLL cavitary lesion, send quantiferon, Histo UrAg, CrAg, BDG, Aspergillus Ag, Blasto Ab - If develops cough or respiratory Sx then would send sputum bacterial/Nocardia/fungal/AFB Cx and low threshold for AFB respiratory evaluation (3x sputa and MTB PCR) - Current planned for outpatient PET/CT to further evaluate LLL cavitation - Would continue to monitor closely for s/sx of metastatic spread of MRSA infection (joint pain, back pain) with low threshold to image/evaluate - F/u 12/16 UCx, BCx Echo - w/o vegetations, LV is normal in size. Mild concentric LVH. No regional wall motion abnormalities noted. EF 60 to 65%. There is no visualized valvular vegetation within limitations of transthoracic study of fair technical quality. (3) DICK (acute kidney injury): Plan: - Cr elevated at 2.2, likely secondary to sepsis - cont. to closely monitor renal function, urine output - avoid nephrotoxic agents - Cr now improved 1.28 (4) Hyponatremia: Plan: - with hypochloremia - received IVF NS in the ED - pt seemed dehydrated - cont. to closely monitor BMP - Na improved, Cl level improved AGMA - likely secondary to lactic acidosis - lactate improved after IVF - cont. to monitor - resolved, cont. to monitor Anemia - Hgb 9.0 on admission - cont. to monitor H&H Admission and Anticipated Discharge Date Admission Date: December 17, 2023 Subjective Pt seen in follow up of AMS, sepsis Mental status back to baseline - pt is alert and oriented, does not remember much of yesterday Blood cultx positive for MRSA Currently pt is in ICU -> plan to downgrade to PCU Surgery, urology ID consulted Pt reports feeling well overall besides R leg pain which he has had for some time No chest pain, shortness of breath, no abd. pain, n/v. Review of Systems Review of Systems: All systems reviewed & are unremarkable except as noted in Subjective Physical Exam Physical Exam: Constitutional: WD/WN, vitals as a celia Eyes: PERRL, conjunctiva e normal, anicteri c sclerae ENMT: external ear and n ose normal, oropha rynx normal Neck: normal visual insp ection Respiratory: normal respiratory effort, lungs shreyas ar to auscultation Cardiovascular: RRR, no murmur, no edema Chest (Breasts): Chest: normal insp ection of chest Gastrointestinal ( Abdomen): normal bowel sound s, soft, nontender , Musculoskeletal: Head/Neck/Chest: n ormocephalic and h ead atraumatic R k nee mild edema, no erythema, moves e xtremities Skin: no rashes, warm an d dry Neurologic: awake, alert, cedric ented, answers catrachito ropriately, speech fluent, no facial asymmetry, moves extremities Results & Data Results & Data Vital Signs (Past 12 Hours) Vital Signs Temp Pulse Pulse Resp BP BP Pulse Ox 12/18/23 07:08 100 H 12/18/23 06:00 96 H 25 H 98 12/18/23 06:00 37.9 C H 12/18/23 05:00 144/87 H 12/18/23 05:00 113 H 23 95 12/18/23 04:00 139/79 12/18/23 04:00 103 H 24 12/18/23 04:00 36.8 C 12/18/23 03:00 135/69 12/18/23 03:00 104 H 23 96 12/18/23 02:01 114/79 12/18/23 02:01 98 H 20 96 12/18/23 02:00 105 H 24 96 12/18/23 02:00 37.4 C 12/18/23 01:00 121/82 12/18/23 01:00 124 H 25 H 94 12/18/23 00:01 143/80 H 12/18/23 00:01 122 H 27 H 96 12/18/23 00:00 122 H 30 H 94 12/18/23 00:00 99 H 12/18/23 00:00 38.0 C H 12/17/23 23:23 37.5 C 115 H 20 151/80 H 94 12/17/23 23:01 137/77 12/17/23 23:01 120 H 32 H 95 12/17/23 23:00 119 H 30 H 96 12/17/23 23:00 37.2 C 12/17/23 22:55 145/94 H 12/17/23 22:55 102 H 21 95 12/17/23 22:27 83/71 L 12/17/23 22:27 120 H 34 H 93 12/17/23 22:05 115 H 30 H 96 12/17/23 21:44 37.5 C 12/17/23 21:31 12/17/23 21:01 107/82 12/17/23 20:30 118 H 23 148/71 H 94 12/17/23 20:00 120 H 34 H 102/72 92 12/17/23 19:49 118 H 20 111/80 92 12/17/23 19:30 120 H 30 H 119/67 92 Pulse Ox O2 Del Method O2 Del Method 12/18/23 07:08 12/18/23 06:00 12/18/23 06:00 12/18/23 05:00 12/18/23 05:00 12/18/23 04:00 12/18/23 04:00 12/18/23 04:00 12/18/23 03:00 12/18/23 03:00 12/18/23 02:01 12/18/23 02:01 12/18/23 02:00 12/18/23 02:00 12/18/23 01:00 12/18/23 01:00 12/18/23 00:01 12/18/23 00:01 12/18/23 00:00 12/18/23 00:00 12/18/23 00:00 12/17/23 23:23 Room Air 12/17/23 23:01 12/17/23 23:01 12/17/23 23:00 12/17/23 23:00 12/17/23 22:55 12/17/23 22:55 12/17/23 22:27 12/17/23 22:27 12/17/23 22:05 12/17/23 21:44 12/17/23 21:31 94 Room Air 12/17/23 21:01 12/17/23 20:30 12/17/23 20:00 12/17/23 19:49 12/17/23 19:30 Room Air Laboratory Results 12/18/23 12/18/23 12/17/23 Range/Units 04:17 04:10 Unknown WBC 18.83 H (4.8-10.8) K/ul RBC 3.21 L (4.70-6.10) M/uL Hgb 8.2 L (14.0-18.0) g/dl POC Hgb (14.0-18.0) g/dl Hct 25.0 L (42.0-52.0) % POC Hct (42-52) % MCV 77.9 L (80.0-100.0) fL MCH 25.5 (25.0-34.0) pg MCHC 32.8 (32.0-36.0) g/dL RDW Std Deviation 40.9 (36.4-46.3) fL RDW Coeff of Xavier 14.4 (11.5-14.5) % Plt Count 559 H (130-400) K/uL MPV 9.2 L (9.4-12.4) fL Immature Gran % (Auto) 3.3 % Neut % (Auto) 83.2 % Lymph % (Auto) 5.9 % [place] % (Auto) 6.7 % Eos % (Auto) 0.6 % Baso % (Auto) 0.3 % Neut # (Auto) 15.67 H (1.40-6.50) K/uL Lymph # (Auto) 1.11 L (1.20-3.40) K/uL [place] # (Auto) 1.26 H (0.11-0.59) K/uL Eos # (Auto) 0.11 (0.00-0.50) K/uL Baso # (Auto) 0.06 (0.00-0.20) K/uL Immature Gran # (Auto) 0.62 H (0.01-0.20) K/uL Polychromasia ESR (0-20) mm/hr ABG pH (7.35-7.45) ABG pCO2 (35-46) mmHg ABG pO2 (80-95) mmHg ABG HCO3 (19-24) mmol/L ABG O2 Saturation (90-95) % ABG Base Excess (-9-1.8) mEq/L Wil Test (Pos) Oxygen Given POC Sodium (135-144) mmol/L Sodium 131 L (136-145) mmol/L POC Potassium (3.3-5.0) mmol/L Potassium 4.2 (3.5-5.1) mmol/L POC Chloride (101-112) mmol/L Chloride 101 (98-107) mmol/L Carbon Dioxide 21 (21-32) mmol/L POC Total CO2 (24-31) mmol/L Anion Gap 9 (3-11) POC Anion Gap (16-25) mmol/L POC BUN (7-18) mg/dl BUN 28 H (6-23) mg/dl Creatinine 1.28 (0.6-1.4) mg/dl POC Creatinine (0.6-1.3) mg/dl Est Cr Clr Drug Dosing 78.9 Est GFR ( Amer) 72.0 ml/min Est GFR (Non-Af Amer) 62.2 ml/min BUN/Creatinine Ratio 21.9 H (10-20) Glucose 141 H (70-99(Fasting)) mg/dl POC Glucose 147 H (70-99) mg/dl POC Glucose (other) (70-99) mg/dl Osmolality (280-300) mOsm/kg Lactate (0.4-2.0) mmol/L Calcium 8.4 L (8.6-10.3) mg/dl POC Ioniz Calcium Izaiah (1.12-1.32) mmol/l Phosphorus 2.8 (2.5-4.9) mg/dl Magnesium 2.0 (1.7-2.4) mg/dl Total Bilirubin (0.2-1.0) mg/dl Direct Bilirubin (0-0.2) mg/dl AST (13-39) U/L ALT (7-52) U/L Alkaline Phosphatase (34-104) U/L Troponin I High Sens (0-20) pg/ml C-Reactive Protein (0-0.5) mg/dl Total Protein (6.0-8.3) gm/dl Albumin (3.4-5.0) gm/dl Lipase (11-82) U/L Procalcitonin (0-0.5) ng/ml TSH (0.300-4.500) uIu/ml Random Cortisol mcg/dl Urine Color Urine Appearance (Clear) Urine pH (4.5-7.5) Ur Specific Ker[place] (1.000-1.030) Urine Protein (Negative) Urine Glucose (UA) (Negative) Urine Ketones (Negative) Urine Blood (Negative) Urine Nitrite (Negative) Urine Bilirubin (Negative) Urine Urobilinogen (Negative) Ur Leukocyte Esterase (Negative) Urine WBC (Auto) (0-5) /hpf Urine RBC (Auto) (0-4) /hpf U Hyaline Cast (Auto) (0-5) /lpf U Epithel Cells (Auto) (0-5) /lpf Urine Bacteria (Auto) (Negative) Urine Yeast Urine Osmolality (500-800) mOsm/kg Ur Random Creatinine mg/dl Ur Random Sodium mmol/L Ur Random Potassium mmol/L Ur Random Chloride mmol/L Ur Random Uric Acid Nasal Screen MRSA (PCR) Positive A (Negative) Salicylates (3.0-30) mg/dl Urine Opiates Screen (Neg) Ur Methadone, Qual (Neg) Acetaminophen (10-30) ug/ml Urine Barbiturates (Neg) Ur Phencyclidine (PCP) (Neg) U Amphetamin/Meth Scrn (Neg) MDMA (Ecstasy) Screen (Neg) U Benzodiazepines Scrn (Neg) Ur Cocaine Metabolite (Neg) U Marijuana (THC) Screen (Neg) Ethyl Alcohol mg/dL (<10.0) mg/dl Adenovirus (PCR) (NotDetected) B. pertussis DNA (PCR) (NotDetected) B.parapertussis DNA PCR (NotDetected) C. pneumoniae DNA (PCR) (NotDetected) Coronavirus OC43 (PCR) (NotDetected) Coronavirus HKU1 (PCR) (NotDetected) Coronavirus 229E (PCR) (NotDetected) SARS-CoV-2 (PCR) (NotDetected) Coronavirus NL63 (PCR) (NotDetected) Human Metapneumovir PCR (NotDetected) Influenza Type A (PCR) (NotDetected) Influenza Type B (PCR) (NotDetected) M. pneumoniae (PCR) (NotDetected) Parainfluenza 1 (PCR) (NotDetected) Parainfluenza 2 (PCR) (NotDetected) Parainfluenza 3 (PCR) (NotDetected) Parainfluenza 4 (PCR) (NotDetected) RSV (PCR) (NotDetected) Entero/Rhino (PCR) (NotDetected) Staphylococcus sp PCR (NotDetected) Staph aureus (PCR) (NotDetected) mecA/C & MREJ Resist Gene (NotDetected) Bld Cult ID Panel PCR (NotDetected) 12/17/23 12/17/23 12/17/23 Range/Units 23:05 21:48 18:34 WBC (4.8-10.8) K/ul RBC (4.70-6.10) M/uL Hgb (14.0-18.0) g/dl POC Hgb (14.0-18.0) g/dl Hct (42.0-52.0) % POC Hct (42-52) % MCV (80.0-100.0) fL MCH (25.0-34.0) pg MCHC (32.0-36.0) g/dL RDW Std Deviation (36.4-46.3) fL RDW Coeff of Xavier (11.5-14.5) % Plt Count (130-400) K/uL MPV (9.4-12.4) fL Immature Gran % (Auto) % Neut % (Auto) % Lymph % (Auto) % [place] % (Auto) % Eos % (Auto) % Baso % (Auto) % Neut # (Auto) (1.40-6.50) K/uL Lymph # (Auto) (1.20-3.40) K/uL [place] # (Auto) (0.11-0.59) K/uL Eos # (Auto) (0.00-0.50) K/uL Baso # (Auto) (0.00-0.20) K/uL Immature Gran # (Auto) (0.01-0.20) K/uL Polychromasia ESR (0-20) mm/hr ABG pH 7.45 (7.35-7.45) ABG pCO2 27 L (35-46) mmHg ABG pO2 70 L (80-95) mmHg ABG HCO3 19 (19-24) mmol/L ABG O2 Saturation 97.5 H (90-95) % ABG Base Excess -3.8 (-9-1.8) mEq/L Wil Test Pos (Pos) Oxygen Given RA POC Sodium (135-144) mmol/L Sodium 130 L (136-145) mmol/L POC Potassium (3.3-5.0) mmol/L Potassium 4.5 (3.5-5.1) mmol/L POC Chloride (101-112) mmol/L Chloride 99 (98-107) mmol/L Carbon Dioxide 22 (21-32) mmol/L POC Total CO2 (24-31) mmol/L Anion Gap 9 (3-11) POC Anion Gap (16-25) mmol/L POC BUN (7-18) mg/dl BUN 35 H (6-23) mg/dl Creatinine 1.49 H D (0.6-1.4) mg/dl POC Creatinine (0.6-1.3) mg/dl Est Cr Clr Drug Dosing Not Reportable Est GFR ( Amer) 59.9 ml/min Est GFR (Non-Af Amer) 51.7 ml/min BUN/Creatinine Ratio 23.5 H (10-20) Glucose 108 H (70-99(Fasting)) mg/dl POC Glucose 110 H (70-99) mg/dl POC Glucose (other) (70-99) mg/dl Osmolality (280-300) mOsm/kg Lactate 1.4 (0.4-2.0) mmol/L Calcium 8.2 L (8.6-10.3) mg/dl POC Ioniz Calcium Izaiah (1.12-1.32) mmol/l Phosphorus 2.7 (2.5-4.9) mg/dl Magnesium 1.2 L (1.7-2.4) mg/dl Total Bilirubin (0.2-1.0) mg/dl Direct Bilirubin (0-0.2) mg/dl AST (13-39) U/L ALT (7-52) U/L Alkaline Phosphatase (34-104) U/L Troponin I High Sens (0-20) pg/ml C-Reactive Protein (0-0.5) mg/dl Total Protein (6.0-8.3) gm/dl Albumin (3.4-5.0) gm/dl Lipase (11-82) U/L Procalcitonin (0-0.5) ng/ml TSH (0.300-4.500) uIu/ml Random Cortisol mcg/dl Urine Color Urine Appearance (Clear) Urine pH (4.5-7.5) Ur Specific [place] (1.000-1.030) Urine Protein (Negative) Urine Glucose (UA) (Negative) Urine Ketones (Negative) Urine Blood (Negative) Urine Nitrite (Negative) Urine Bilirubin (Negative) Urine Urobilinogen (Negative) Ur Leukocyte Esterase (Negative) Urine WBC (Auto) (0-5) /hpf Urine RBC (Auto) (0-4) /hpf U Hyaline Cast (Auto) (0-5) /lpf U Epithel Cells (Auto) (0-5) /lpf Urine Bacteria (Auto) (Negative) Urine Yeast Urine Osmolality (500-800) mOsm/kg Ur Random Creatinine mg/dl Ur Random Sodium mmol/L Ur Random Potassium mmol/L Ur Random Chloride mmol/L Ur Random Uric Acid Nasal Screen MRSA (PCR) (Negative) Salicylates (3.0-30) mg/dl Urine Opiates Screen (Neg) Ur Methadone, Qual (Neg) Acetaminophen (10-30) ug/ml Urine Barbiturates (Neg) Ur Phencyclidine (PCP) (Neg) U Amphetamin/Meth Scrn (Neg) MDMA (Ecstasy) Screen (Neg) U Benzodiazepines Scrn (Neg) Ur Cocaine Metabolite (Neg) U Marijuana (THC) Screen (Neg) Ethyl Alcohol mg/dL (<10.0) mg/dl Adenovirus (PCR) (NotDetected) B. pertussis DNA (PCR) (NotDetected) B.parapertussis DNA PCR (NotDetected) C. pneumoniae DNA (PCR) (NotDetected) Coronavirus OC43 (PCR) (NotDetected) Coronavirus HKU1 (PCR) (NotDetected) Coronavirus 229E (PCR) (NotDetected) SARS-CoV-2 (PCR) (NotDetected) Coronavirus NL63 (PCR) (NotDetected) Human Metapneumovir PCR (NotDetected) Influenza Type A (PCR) (NotDetected) Influenza Type B (PCR) (NotDetected) M. pneumoniae (PCR) (NotDetected) Parainfluenza 1 (PCR) (NotDetected) Parainfluenza 2 (PCR) (NotDetected) Parainfluenza 3 (PCR) (NotDetected) Parainfluenza 4 (PCR) (NotDetected) RSV (PCR) (NotDetected) Entero/Rhino (PCR) (NotDetected) Staphylococcus sp PCR (NotDetected) Staph aureus (PCR) (NotDetected) mecA/C & MREJ Resist Gene (NotDetected) Bld Cult ID Panel PCR (NotDetected) 12/17/23 12/17/23 12/17/23 Range/Units 18:20 17:51 15:23 WBC (4.8-10.8) K/ul RBC (4.70-6.10) M/uL Hgb (14.0-18.0) g/dl POC Hgb (14.0-18.0) g/dl Hct (42.0-52.0) % POC Hct (42-52) % MCV (80.0-100.0) fL MCH (25.0-34.0) pg MCHC (32.0-36.0) g/dL RDW Std Deviation (36.4-46.3) fL RDW Coeff of Xavier (11.5-14.5) % Plt Count (130-400) K/uL MPV (9.4-12.4) fL Immature Gran % (Auto) % Neut % (Auto) % Lymph % (Auto) % [place] % (Auto) % Eos % (Auto) % Baso % (Auto) % Neut # (Auto) (1.40-6.50) K/uL Lymph # (Auto) (1.20-3.40) K/uL [place] # (Auto) (0.11-0.59) K/uL Eos # (Auto) (0.00-0.50) K/uL Baso # (Auto) (0.00-0.20) K/uL Immature Gran # (Auto) (0.01-0.20) K/uL Polychromasia ESR 95 H (0-20) mm/hr ABG pH (7.35-7.45) ABG pCO2 (35-46) mmHg ABG pO2 (80-95) mmHg ABG HCO3 (19-24) mmol/L ABG O2 Saturation (90-95) % ABG Base Excess (-9-1.8) mEq/L Wil Test (Pos) Oxygen Given POC Sodium (135-144) mmol/L Sodium (136-145) mmol/L POC Potassium (3.3-5.0) mmol/L Potassium (3.5-5.1) mmol/L POC Chloride (101-112) mmol/L Chloride (98-107) mmol/L Carbon Dioxide (21-32) mmol/L POC Total CO2 (24-31) mmol/L Anion Gap (3-11) POC Anion Gap (16-25) mmol/L POC BUN (7-18) mg/dl BUN (6-23) mg/dl Creatinine (0.6-1.4) mg/dl POC Creatinine (0.6-1.3) mg/dl Est Cr Clr Drug Dosing Est GFR ( Amer) ml/min Est GFR (Non-Af Amer) ml/min BUN/Creatinine Ratio (10-20) Glucose (70-99(Fasting)) mg/dl POC Glucose (70-99) mg/dl POC Glucose (other) (70-99) mg/dl Osmolality 280 (280-300) mOsm/kg Lactate 2.4 H* (0.4-2.0) mmol/L Calcium (8.6-10.3) mg/dl POC Ioniz Calcium Izaiah (1.12-1.32) mmol/l Phosphorus (2.5-4.9) mg/dl Magnesium (1.7-2.4) mg/dl Total Bilirubin (0.2-1.0) mg/dl Direct Bilirubin (0-0.2) mg/dl AST (13-39) U/L ALT (7-52) U/L Alkaline Phosphatase (34-104) U/L Troponin I High Sens (0-20) pg/ml C-Reactive Protein (0-0.5) mg/dl Total Protein (6.0-8.3) gm/dl Albumin (3.4-5.0) gm/dl Lipase (11-82) U/L Procalcitonin 1.35 H (0-0.5) ng/ml TSH (0.300-4.500) uIu/ml Random Cortisol 19.00 mcg/dl Urine Color Urine Appearance (Clear) Urine pH (4.5-7.5) Ur Specific [place] (1.000-1.030) Urine Protein (Negative) Urine Glucose (UA) (Negative) Urine Ketones (Negative) Urine Blood (Negative) Urine Nitrite (Negative) Urine Bilirubin (Negative) Urine Urobilinogen (Negative) Ur Leukocyte Esterase (Negative) Urine WBC (Auto) (0-5) /hpf Urine RBC (Auto) (0-4) /hpf U Hyaline Cast (Auto) (0-5) /lpf U Epithel Cells (Auto) (0-5) /lpf Urine Bacteria (Auto) (Negative) Urine Yeast Urine Osmolality (500-800) mOsm/kg Ur Random Creatinine mg/dl Ur Random Sodium mmol/L Ur Random Potassium mmol/L Ur Random Chloride mmol/L Ur Random Uric Acid Nasal Screen MRSA (PCR) (Negative) Salicylates < 3.0 L (3.0-30) mg/dl Urine Opiates Screen (Neg) Ur Methadone, Qual (Neg) Acetaminophen 3 L (10-30) ug/ml Urine Barbiturates (Neg) Ur Phencyclidine (PCP) (Neg) U Amphetamin/Meth Scrn (Neg) MDMA (Ecstasy) Screen (Neg) U Benzodiazepines Scrn (Neg) Ur Cocaine Metabolite (Neg) U Marijuana (THC) Screen (Neg) Ethyl Alcohol mg/dL < 10.0 (<10.0) mg/dl Adenovirus (PCR) (NotDetected) B. pertussis DNA (PCR) (NotDetected) B.parapertussis DNA PCR (NotDetected) C. pneumoniae DNA (PCR) (NotDetected) Coronavirus OC43 (PCR) (NotDetected) Coronavirus HKU1 (PCR) (NotDetected) Coronavirus 229E (PCR) (NotDetected) SARS-CoV-2 (PCR) (NotDetected) Coronavirus NL63 (PCR) (NotDetected) Human Metapneumovir PCR (NotDetected) Influenza Type A (PCR) (NotDetected) Influenza Type B (PCR) (NotDetected) M. pneumoniae (PCR) (NotDetected) Parainfluenza 1 (PCR) (NotDetected) Parainfluenza 2 (PCR) (NotDetected) Parainfluenza 3 (PCR) (NotDetected) Parainfluenza 4 (PCR) (NotDetected) RSV (PCR) (NotDetected) Entero/Rhino (PCR) (NotDetected) Staphylococcus sp PCR (NotDetected) Staph aureus (PCR) (NotDetected) mecA/C & MREJ Resist Gene (NotDetected) Bld Cult ID Panel PCR (NotDetected) 03/28/24 03/28/24 03/28/24 Range/Units 14:50 14:45 14:02 WBC (4.8-10.8) K/ul RBC (4.70-6.10) M/uL Hgb (14.0-18.0) g/dl POC Hgb 10.2 L (14.0-18.0) g/dl Hct (42.0-52.0) % POC Hct 30 L (42-52) % MCV (80.0-100.0) fL MCH (25.0-34.0) pg MCHC (32.0-36.0) g/dL RDW Std Deviation (36.4-46.3) fL RDW Coeff of Xavier (11.5-14.5) % Plt Count (130-400) K/uL MPV (9.4-12.4) fL Immature Gran % (Auto) % Neut % (Auto) % Lymph % (Auto) % [place] % (Auto) % Eos % (Auto) % Baso % (Auto) % Neut # (Auto) (1.40-6.50) K/uL Lymph # (Auto) (1.20-3.40) K/uL [place] # (Auto) (0.11-0.59) K/uL Eos # (Auto) (0.00-0.50) K/uL Baso # (Auto) (0.00-0.20) K/uL Immature Gran # (Auto) (0.01-0.20) K/uL Polychromasia ESR (0-20) mm/hr ABG pH (7.35-7.45) ABG pCO2 (35-46) mmHg ABG pO2 (80-95) mmHg ABG HCO3 (19-24) mmol/L ABG O2 Saturation (90-95) % ABG Base Excess (-9-1.8) mEq/L Wil Test (Pos) Oxygen Given POC Sodium 124 L (135-144) mmol/L Sodium (136-145) mmol/L POC Potassium 5.2 H (3.3-5.0) mmol/L Potassium (3.5-5.1) mmol/L POC Chloride 93 L (101-112) mmol/L Chloride (98-107) mmol/L Carbon Dioxide (21-32) mmol/L POC Total CO2 21 L (24-31) mmol/L Anion Gap (3-11) POC Anion Gap 17.0 (16-25) mmol/L POC BUN 39 H (7-18) mg/dl BUN (6-23) mg/dl Creatinine (0.6-1.4) mg/dl POC Creatinine 2.4 H (0.6-1.3) mg/dl Est Cr Clr Drug Dosing Est GFR ( Amer) ml/min Est GFR (Non-Af Amer) ml/min BUN/Creatinine Ratio (10-20) Glucose (70-99(Fasting)) mg/dl POC Glucose (70-99) mg/dl POC Glucose (other) 107 H (70-99) mg/dl Osmolality (280-300) mOsm/kg Lactate (0.4-2.0) mmol/L Calcium (8.6-10.3) mg/dl POC Ioniz Calcium Izaiah 1.08 L (1.12-1.32) mmol/l Phosphorus (2.5-4.9) mg/dl Magnesium (1.7-2.4) mg/dl Total Bilirubin (0.2-1.0) mg/dl Direct Bilirubin (0-0.2) mg/dl AST (13-39) U/L ALT (7-52) U/L Alkaline Phosphatase (34-104) U/L Troponin I High Sens (0-20) pg/ml C-Reactive Protein (0-0.5) mg/dl Total Protein (6.0-8.3) gm/dl Albumin (3.4-5.0) gm/dl Lipase (11-82) U/L Procalcitonin (0-0.5) ng/ml TSH (0.300-4.500) uIu/ml Random Cortisol mcg/dl Urine Color Yellow Urine Appearance Cloudy A (Clear) Urine pH 5.0 (4.5-7.5) Ur Specific [place] 1.017 (1.000-1.030) Urine Protein 1+ H (Negative) Urine Glucose (UA) Negative (Negative) Urine Ketones Negative (Negative) Urine Blood 2+ H (Negative) Urine Nitrite Negative (Negative) Urine Bilirubin Negative (Negative) Urine Urobilinogen Negative (Negative) Ur Leukocyte Esterase 2+ H (Negative) Urine WBC (Auto) >30 H (0-5) /hpf Urine RBC (Auto) 0-4 (0-4) /hpf U Hyaline Cast (Auto) 1-5 (0-5) /lpf U Epithel Cells (Auto) 0-5 (0-5) /lpf Urine Bacteria (Auto) Negative (Negative) Urine Yeast Not Reportable Urine Osmolality 351 L (500-800) mOsm/kg Ur Random Creatinine 140.7 mg/dl Ur Random Sodium 15 mmol/L Ur Random Potassium 43.8 mmol/L Ur Random Chloride 16 mmol/L Ur Random Uric Acid Pending Nasal Screen MRSA (PCR) (Negative) Salicylates (3.0-30) mg/dl Urine Opiates Screen Neg (Neg) Ur Methadone, Qual Neg (Neg) Acetaminophen (10-30) ug/ml Urine Barbiturates Neg (Neg) Ur Phencyclidine (PCP) Neg (Neg) U Amphetamin/Meth Scrn Neg (Neg) MDMA (Ecstasy) Screen Neg (Neg) U Benzodiazepines Scrn Neg (Neg) Ur Cocaine Metabolite Neg (Neg) U Marijuana (THC) Screen Neg (Neg) Ethyl Alcohol mg/dL (<10.0) mg/dl Adenovirus (PCR) Not Detected (NotDetected) B. pertussis DNA (PCR) Not Detected (NotDetected) B.parapertussis DNA PCR Not Detected (NotDetected) C. pneumoniae DNA (PCR) Not Detected (NotDetected) Coronavirus OC43 (PCR) Not Detected (NotDetected) Coronavirus HKU1 (PCR) Not Detected (NotDetected) Coronavirus 229E (PCR) Not Detected (NotDetected) SARS-CoV-2 (PCR) Not Detected (NotDetected) Coronavirus NL63 (PCR) Not Detected (NotDetected) Human Metapneumovir PCR Not Detected (NotDetected) Influenza Type A (PCR) Not Detected (NotDetected) Influenza Type B (PCR) Not Detected (NotDetected) M. pneumoniae (PCR) Not Detected (NotDetected) Parainfluenza 1 (PCR) Not Detected (NotDetected) Parainfluenza 2 (PCR) Not Detected (NotDetected) Parainfluenza 3 (PCR) Not Detected (NotDetected) Parainfluenza 4 (PCR) Not Detected (NotDetected) RSV (PCR) Not Detected (NotDetected) Entero/Rhino (PCR) Not Detected (NotDetected) Staphylococcus sp PCR (NotDetected) Staph aureus (PCR) (NotDetected) mecA/C & MREJ Resist Gene (NotDetected) Bld Cult ID Panel PCR (NotDetected) 12/17/23 12/17/23 12/17/23 Range/Units 13:55 13:30 13:10 WBC 24.98 H (4.8-10.8) K/ul RBC 3.48 L (4.70-6.10) M/uL Hgb 9.0 L (14.0-18.0) g/dl POC Hgb (14.0-18.0) g/dl Hct 27.3 L (42.0-52.0) % POC Hct (42-52) % MCV 78.4 L (80.0-100.0) fL MCH 25.9 (25.0-34.0) pg MCHC 33.0 (32.0-36.0) g/dL RDW Std Deviation 41.1 (36.4-46.3) fL RDW Coeff of Xavier 14.5 (11.5-14.5) % Plt Count 587 H (130-400) K/uL MPV 9.4 (9.4-12.4) fL Immature Gran % (Auto) 4.2 % Neut % (Auto) 84.8 % Lymph % (Auto) 4.3 % [place] % (Auto) 6.1 % Eos % (Auto) 0.2 % Baso % (Auto) 0.4 % Neut # (Auto) 21.20 H (1.40-6.50) K/uL Lymph # (Auto) 1.07 L (1.20-3.40) K/uL [place] # (Auto) 1.52 H (0.11-0.59) K/uL Eos # (Auto) 0.05 (0.00-0.50) K/uL Baso # (Auto) 0.09 (0.00-0.20) K/uL Immature Gran # (Auto) 1.05 H (0.01-0.20) K/uL Polychromasia 1+ ESR (0-20) mm/hr ABG pH (7.35-7.45) ABG pCO2 (35-46) mmHg ABG pO2 (80-95) mmHg ABG HCO3 (19-24) mmol/L ABG O2 Saturation (90-95) % ABG Base Excess (-9-1.8) mEq/L Wil Test (Pos) Oxygen Given POC Sodium (135-144) mmol/L Sodium 125 L (136-145) mmol/L POC Potassium (3.3-5.0) mmol/L Potassium 4.9 (3.5-5.1) mmol/L POC Chloride (101-112) mmol/L Chloride 90 L (98-107) mmol/L Carbon Dioxide 19 L (21-32) mmol/L POC Total CO2 (24-31) mmol/L Anion Gap 16 H (3-11) POC Anion Gap (16-25) mmol/L POC BUN (7-18) mg/dl BUN 47 H (6-23) mg/dl Creatinine 2.19 H (0.6-1.4) mg/dl POC Creatinine (0.6-1.3) mg/dl Est Cr Clr Drug Dosing Not Reportable Est GFR ( Amer) 37.6 ml/min Est GFR (Non-Af Amer) 32.5 ml/min BUN/Creatinine Ratio 21.5 H (10-20) Glucose 97 (70-99(Fasting)) mg/dl POC Glucose (70-99) mg/dl POC Glucose (other) (70-99) mg/dl Osmolality (280-300) mOsm/kg Lactate 4.2 H* (0.4-2.0) mmol/L Calcium 8.7 (8.6-10.3) mg/dl POC Ioniz Calcium Izaiah (1.12-1.32) mmol/l Phosphorus (2.5-4.9) mg/dl Magnesium (1.7-2.4) mg/dl Total Bilirubin 0.5 (0.2-1.0) mg/dl Direct Bilirubin 0.1 (0-0.2) mg/dl AST 29 (13-39) U/L ALT 46 (7-52) U/L Alkaline Phosphatase 90 (34-104) U/L Troponin I High Sens 11.7 (0-20) pg/ml C-Reactive Protein 31.33 H (0-0.5) mg/dl Total Protein 7.7 (6.0-8.3) gm/dl Albumin 2.8 L (3.4-5.0) gm/dl Lipase 24 (11-82) U/L Procalcitonin (0-0.5) ng/ml TSH 2.054 (0.300-4.500) uIu/ml Random Cortisol mcg/dl Urine Color Urine Appearance (Clear) Urine pH (4.5-7.5) Ur Specific Kerby (1.000-1.030) Urine Protein (Negative) Urine Glucose (UA) (Negative) Urine Ketones (Negative) Urine Blood (Negative) Urine Nitrite (Negative) Urine Bilirubin (Negative) Urine Urobilinogen (Negative) Ur Leukocyte Esterase (Negative) Urine WBC (Auto) (0-5) /hpf Urine RBC (Auto) (0-4) /hpf U Hyaline Cast (Auto) (0-5) /lpf U Epithel Cells (Auto) (0-5) /lpf Urine Bacteria (Auto) (Negative) Urine Yeast Urine Osmolality (500-800) mOsm/kg Ur Random Creatinine mg/dl Ur Random Sodium mmol/L Ur Random Potassium mmol/L Ur Random Chloride mmol/L Ur Random Uric Acid Nasal Screen MRSA (PCR) (Negative) Salicylates (3.0-30) mg/dl Urine Opiates Screen (Neg) Ur Methadone, Qual (Neg) Acetaminophen (10-30) ug/ml Urine Barbiturates (Neg) Ur Phencyclidine (PCP) (Neg) U Amphetamin/Meth Scrn (Neg) MDMA (Ecstasy) Screen (Neg) U Benzodiazepines Scrn (Neg) Ur Cocaine Metabolite (Neg) U Marijuana (THC) Screen (Neg) Ethyl Alcohol mg/dL (<10.0) mg/dl Adenovirus (PCR) (NotDetected) B. pertussis DNA (PCR) (NotDetected) B.parapertussis DNA PCR (NotDetected) C. pneumoniae DNA (PCR) (NotDetected) Coronavirus OC43 (PCR) (NotDetected) Coronavirus HKU1 (PCR) (NotDetected) Coronavirus 229E (PCR) (NotDetected) SARS-CoV-2 (PCR) (NotDetected) Coronavirus NL63 (PCR) (NotDetected) Human Metapneumovir PCR (NotDetected) Influenza Type A (PCR) (NotDetected) Influenza Type B (PCR) (NotDetected) M. pneumoniae (PCR) (NotDetected) Parainfluenza 1 (PCR) (NotDetected) Parainfluenza 2 (PCR) (NotDetected) Parainfluenza 3 (PCR) (NotDetected) Parainfluenza 4 (PCR) (NotDetected) RSV (PCR) (NotDetected) Entero/Rhino (PCR) (NotDetected) Staphylococcus sp PCR DETECTED A (NotDetected) Staph aureus (PCR) DETECTED A (NotDetected) mecA/C & MREJ Resist Gene MRSA DETECTED A* (NotDetected) Bld Cult ID Panel PCR See PCR Comment (NotDetected) Medications Administered Current Inpatient Medications Enoxaparin Sodium (Enoxaparin Inj 40 Mg/0.4 Ml Syr) 40 mg SQ QAM SUKHJINDER Stop: 01/17/24 08:59 Piperacillin Sod/Tazobactam (Sod 4.5 gm/ Dextrose) 100 mls @ 25 mls/hr IV Q8H SUKHJINDER; Protocol Stop: 12/28/23 00:00 Last Infusion: 12/18/23 03:00 Dose: Infused Lactated Ringer's (Lr) 1,000 mls @ 125 mls/hr IV .Q8H SUKHJINDER Stop: 01/16/24 21:30 Last Admin: 12/18/23 02:08 Dose: 125 mls/hr Acetaminophen (Ofirmev) 1,000 mg in 100 mls @ 400 mls/hr IV Q8H PRN PRN Reason: pain/fever Stop: 12/20/23 21:38 Last Infusion: 12/18/23 00:40 Dose: Infused Thiamine HCl 100 mg/ Syringe 10 mls @ 2 mls/min IV QAM SUKHJINDER Stop: 01/17/24 08:59 Vancomycin HCl 1,000 mg/ (Sodium Chloride) 270 mls @ 200 mls/hr IV Q12H SUKHJINDER Stop: 12/20/23 05:59 Last Infusion: 12/18/23 07:00 Dose: Infused Miscellaneous (Icu Protocol For Hyperglycemia) 1 each N/A ACHS SUKHJINDER Stop: 12/19/23 21:30 Last Admin: 12/17/23 22:55 Dose: 1 each Miscellaneous Information (Vancomycin Consult Active) 1 each N/A UD PRN PRN Reason: Consult Stop: 01/16/24 13:50
--- NOTE | 2023-12-18 07:28 | Critical Care Progress Note ---
Date of Service December 18, 2023 Assessment & Plan (1) DCIK (acute kidney injury): (2) Encephalopathy: (3) Hyponatremia: (4) Sepsis: (5) Abscess: (6) Hypertension: (7) Migraine: (8) Dyslipidemia: Plan Reason Critically Ill: 57-year-old male presented to the hospital with altered mental status, past medical history of hypertension and dyslipidemia. Recently he also has a lesion in the right knee for which she was supposed to have biopsy done tomorrow done well. Sent to the ICU for sepsis and under mental status Neuro - [facility] ICU: Unable to assess --Metabolic encephalopathy --> resolved Likely related to sepsis TSH within normal limits Mild hyponatremia which is resolving CT head 12/17/2023 negative for any acute intracranial abnormality Cardiac - -- History of hypertension Will resume p.o. medications once blood pressure is on the higher side Respiratory - -- Cavitary lesion in the left lower lobe Unfortunately there is no other imaging to compare CT chest without contrast shows 9 mm left lower lobe cavitary lesion with no significant mediastinal lymphadenopathy Etiology is not clear. Patient is supposed to have a PET/CT done as an outpatient. --Elevated right hemidiaphragm GI - No acute issues RENAL/LYTES - -- S/p DICK Follow-up urine lites Monitor BUN/creatinine Avoid nephrotoxic medications Strict ins and outs -- S/p HAGMA Delta-delta: 1.3, pure anion gap Likely sec to lactic acidosis Continue to monitor --Hyponatremia with hypochloremia Volume status patient seems to be dehydrated so hypovolemic Improving - -- Collection of fluid and gas posterior to the prostate and rectum Likely an abscess and source of infection Urology as well as surgery has been consulted Continue with broad-spectrum antibiotic ENDO - -- ICU hypoglycemia protocol HEME - -- Normocytic anemia Monitor H&H ID - --Gram-positive bacteremia, BioFire showing MRSA Continue with vancomycin Follow-up sensitivity Continue with Zosyn for 48 hours -- Perianal/periprosthetic abscess CAT scan finding does not go with Kait's gangrene Continue with broad-spectrum antibiotics --Prophylaxis VTE: IPC GI: Pantoprazole Lines: Peripheral Diet: Cardiac Plan: In/out: +2.2 L, urine output 3375 Continue with vancomycin. Can discontinue Zosyn after 48 hours. Patient will need a repeat blood culture to be done 48 hours from the original 1. If the repeat blood cultures are positive and the patient is going to need a KIERSTEN. The left lower lobe cavitary lesion could be a metastatic foci, I do not see any significant mediastinal lymphadenopathy. Patient is going to have a PET/CT done as an outpatient following which the appropriate step could be decided If the blood pressure stays on the higher side, okay to resume blood pressure medications gradually. DC Duffy Patient stable to be downgrade to medical floor Please note the above document was generated using voice recognition software. It may contain grammatical, syntax or spelling errors.Any formal questions or concerns about the content, text or information contained within the body of this dictation should be directly addressed to the provider for clarification. Admission and Anticipated Discharge Date Admission Date: December 17, 2023 Subjective Patient seen and examined at bedside. No acute distress, no adverse events overnight He is awake alert oriented. Answering all the questions appropriately Denies any chest pain, no abdominal pain, does complain of some discomfort in the right knee. Denied any issues with defecation. He was able to tolerate the diet, does complain of poor appetite because of not achieving any taste. No nausea or vomiting Review of Systems 2 Review of Systems: All systems reviewed & are unremarkable except as noted in Subjective Physical Exam 2 Physical Exam: Constitutional: No acute distress HEENT: PERRLA Respiratory system: Good air entry bilaterally, no wheeze, no rhonchi, no crackles Cardiac: S1-S2 positive, tachycardia Abdomen: Soft, nontender, nondistended, positive bowel sounds x4 Extremities: +2 pulses bilaterally radialis/ dorsalis pedis, no cyanosis, +1 pitting edema right lower extremity, minimal petechial lesions appreciated on the right leg blanching Neuro: Awake alert oriented x 3 Psych: Normal mood and affect G/U: Positive Duffy, erythema appreciated around the perianal area more on the right side Skin: no rashes, warm and dry Lymphatic: no cervical or axillary lymphadenopathy Results & Data Results & Data Vital Signs (Past 12 Hours) Vital Signs Temp Pulse Pulse Resp BP BP Pulse Ox 12/18/23 07:08 100 H 12/18/23 06:00 96 H 25 H 98 12/18/23 06:00 37.9 C H 12/18/23 05:00 144/87 H 12/18/23 05:00 113 H 23 95 03/29/24 04:00 139/79 12/18/23 04:00 103 H 24 12/18/23 04:00 36.8 C 12/18/23 03:00 135/69 12/18/23 03:00 104 H 23 96 12/18/23 02:01 114/79 12/18/23 02:01 98 H 20 96 12/18/23 02:00 105 H 24 96 12/18/23 02:00 37.4 C 12/18/23 01:00 121/82 12/18/23 01:00 124 H 25 H 94 12/18/23 00:01 143/80 H 12/18/23 00:01 122 H 27 H 96 12/18/23 00:00 122 H 30 H 94 12/18/23 00:00 99 H 12/18/23 00:00 38.0 C H 12/17/23 23:23 37.5 C 115 H 20 151/80 H 94 12/17/23 23:01 137/77 12/17/23 23:01 120 H 32 H 95 12/17/23 23:00 119 H 30 H 96 12/17/23 23:00 37.2 C 12/17/23 22:55 145/94 H 12/17/23 22:55 102 H 21 95 12/17/23 22:27 83/71 L 12/17/23 22:27 120 H 34 H 93 12/17/23 22:05 115 H 30 H 96 12/17/23 21:44 37.5 C 12/17/23 21:31 12/17/23 21:01 107/82 12/17/23 20:30 118 H 23 148/71 H 94 12/17/23 20:00 120 H 34 H 102/72 92 12/17/23 19:49 118 H 20 111/80 92 12/17/23 19:30 120 H 30 H 119/67 92 Pulse Ox O2 Del Method O2 Del Method 12/18/23 07:08 12/18/23 06:00 12/18/23 06:00 12/18/23 05:00 12/18/23 05:00 12/18/23 04:00 12/18/23 04:00 12/18/23 04:00 12/18/23 03:00 12/18/23 03:00 12/18/23 02:01 12/18/23 02:01 12/18/23 02:00 12/18/23 02:00 12/18/23 01:00 12/18/23 01:00 12/18/23 00:01 12/18/23 00:01 12/18/23 00:00 12/18/23 00:00 12/18/23 00:00 12/17/23 23:23 Room Air 12/17/23 23:01 12/17/23 23:01 12/17/23 23:00 12/17/23 23:00 12/17/23 22:55 12/17/23 22:55 12/17/23 22:27 12/17/23 22:27 12/17/23 22:05 12/17/23 21:44 12/17/23 21:31 94 Room Air 12/17/23 21:01 12/17/23 20:30 12/17/23 20:00 12/17/23 19:49 12/17/23 19:30 Room Air Laboratory Results 12/18/23 04:10 12/18/23 04:10 Coding Level of Care Code 05705 SUB INP/OBS CARE 3/50MIN Diagnoses DICK (acute kidney injury) N17.9 Encephalopathy G93.40 Hyponatremia E87.1 Sepsis A41.9 Abscess L02.91 Hypertension I10 Migraine G43.909 Dyslipidemia E78.5
--- NOTE | 2023-12-18 08:48 | Surgery Consultation ---
Date of Consultation December 18, 2023 Assessment & Plan (1) Abscess, perianal: (2) Sepsis: (3) Pneumonia: Plan 57year-old male presented to ED [facility] acute mental status change. He was found to have sepsis with concern for perirectal abscess, possible pneumonia. No history of prior perirectal abscess. CT images reviewed. This also reviewed with IR and Surgery at [facility] who recommended conservative management with IV antibiotics. No obvious signs of perianal/perirectal fluid collection on examination to suggest need for I&D and given supralevator likely would need either IR drainage or possible transrectal drainage. Would continue IV antibiotics and conservative management Discussed with Dr. chamorro who agrees with above. History of Present Illness Reason for Consultation: Perirectal abscess Requesting Physician: Dr. Ted MD Attending Physician: Henrique Jean MD History of Present Illness This is a 57-year-old male who presented to the emergency department on 12/17/2023 with altered mental status. He had recently been having right knee pain which was being evaluated at [facility] in [place], with concern for possible lymphoma of the bone, potential osteomyelitis. Biopsy was scheduled, but before biopsy could be obtained, Mr. Barrera became progressively irritable and confused, eventually prompting his brother to bring him to the emergency department. He had leukocytosis of 24K, febrile, and lactate of 4.2. CT scan of abdomen and pelvis showed an abnormal gas and fluid collection loculated between the prostate gland and rectum measuring approximately 4.1 x 2.1 cm. There is also abnormal thickening within the right puborectalis sling with a possible small tubular tract extending to the right perianal location. Therefore, the abnormal gas and fluid collection located between the prostate gland and rectum may represent supralevator extension of a right-sided perianal fistula with abscess formation. Rogelio is awake and alert this morning, states he does not remember events leading up to coming to hospital. States he has been having right knee/leg pain and has not been eating well due to medications for his knee however denies of any specific abdominal pain , fevers, chills, severe constipation with straining, blood in stools, mucous in stools. Never had prior history of perirectal abscess. Denies of any rectal pain or abdominal pain today. No nausea or vomiting. Allergies Allergy/AdvReac Type Severity Reaction Status Date / Time No Known Allergies Allergy Unverified 12/17/23 15:30 Home Medications Medication Instructions Recorded Confirmed Type atenolol 25 mg tablet 25 mg PO QAM 12/17/23 12/17/23 History chlorthalidone 25 mg tablet 25 mg PO QAM 12/17/23 12/17/23 History enalapril maleate 10 mg tablet 10 mg PO QAM 12/17/23 12/17/23 History enalapril maleate 20 mg tablet 20 mg PO QAM 12/17/23 12/17/23 History naproxen 500 mg tablet 500 mg PO BID PRN Pain 12/17/23 12/17/23 History simvastatin 20 mg tablet 20 mg PO HS 12/17/23 12/17/23 History Patient History Medical History (Updated 12/17/23 @ 19:58 by Carlos Solo MD) Dyslipidemia Hypertension Social History Smoking Status: Unknown if ever smoked Second Hand Exposure: No; Do You Dip or Chew Tobacco: No; Hx Alcohol Use: No Hx Substance Use: No Preferred Language: Turkish Communication Ability: Effective Bit Sharpener Required: No Beliefs That Will Affect Care: None Current Living Situation: Family Feels Safe at Home: Yes Assistive Devices: None Review of Systems Review of Systems: All systems reviewed & are unremarkable except as noted in HPI & below Physical Exam Constitutional: WD/WN, vitals as above + obese, cooperative and comfortable; no acute distress and not ill appearing Respiratory: normal respiratory effort, lungs clear to auscultation Cardiovascular: RRR, no murmur, no edema Gastrointestinal (Abdomen): Inspection/Auscultation: abdomen normal to inspection; abdomen not distended Percussion/Palpation: abdomen soft; abdomen nontender, no guarding, abdomen not rigid and abdomen not firm External rectal exam without any signs of erythema, induration, fluctuance, or pain upon palpation Skin: no rashes, warm and dry Psychiatric: Orientation: alert and oriented x 3 Results & Data Vital Signs (Past 12 Hours) Vital Signs Temp Pulse Pulse Resp BP BP Pulse Ox 12/18/23 08:37 36.8 C 12/18/23 07:08 100 H 12/18/23 07:00 101/47 L 12/18/23 07:00 104 H 22 95 12/18/23 07:00 37.0 C 12/18/23 06:00 96 H 25 H 98 12/18/23 06:00 37.9 C H 12/18/23 05:00 144/87 H 12/18/23 05:00 113 H 23 95 12/18/23 04:00 139/79 12/18/23 04:00 103 H 24 12/18/23 04:00 36.8 C 12/18/23 03:00 135/69 12/18/23 03:00 104 H 23 96 12/18/23 02:01 114/79 12/18/23 02:01 98 H 20 96 12/18/23 02:00 105 H 24 96 12/18/23 02:00 37.4 C 12/18/23 01:00 121/82 12/18/23 01:00 124 H 25 H 94 12/18/23 00:01 143/80 H 12/18/23 00:01 122 H 27 H 96 12/18/23 00:00 122 H 30 H 94 12/18/23 00:00 99 H 12/18/23 00:00 38.0 C H 12/17/23 23:23 37.5 C 115 H 20 151/80 H 94 12/17/23 23:01 137/77 12/17/23 23:01 120 H 32 H 95 12/17/23 23:00 119 H 30 H 96 12/17/23 23:00 37.2 C 12/17/23 22:55 145/94 H 12/17/23 22:55 102 H 21 95 12/17/23 22:27 83/71 L 12/17/23 22:27 120 H 34 H 93 12/17/23 22:05 115 H 30 H 96 12/17/23 21:44 37.5 C 12/17/23 21:31 12/17/23 21:01 107/82 Pulse Ox O2 Del Method O2 Del Method 12/18/23 08:37 12/18/23 07:08 12/18/23 07:00 12/18/23 07:00 Room Air 12/18/23 07:00 12/18/23 06:00 12/18/23 06:00 12/18/23 05:00 12/18/23 05:00 12/18/23 04:00 12/18/23 04:00 12/18/23 04:00 12/18/23 03:00 12/18/23 03:00 12/18/23 02:01 12/18/23 02:01 12/18/23 02:00 12/18/23 02:00 12/18/23 01:00 12/18/23 01:00 12/18/23 00:01 12/18/23 00:01 12/18/23 00:00 12/18/23 00:00 12/18/23 00:00 12/17/23 23:23 Room Air 12/17/23 23:01 12/17/23 23:01 12/17/23 23:00 12/17/23 23:00 12/17/23 22:55 12/17/23 22:55 12/17/23 22:27 12/17/23 22:27 12/17/23 22:05 12/17/23 21:44 12/17/23 21:31 94 Room Air 12/17/23 21:01 Diagnostic Findings ABDOMEN AND PELVIS CT WITHOUT CONTRAST CT DOSE: 6828.04 mGy.cm HISTORY: Altered mental status. infection TECHNIQUE: Multiaxial CT images of the abdomen and pelvis were performed without contrast. A dose lowering technique was utilized adhering to the principles of ALARA. COMPARISON STUDY: None. FINDINGS: There is a 2.4 cm thick-walled cavitary focus within the base of the left lower lobe on image 87. The right lung base is clear. No acute fractures identified. Degenerative changes within the lower lumbar spine. Distended gallbladder without gallbladder wall thickening. Hepatic steatosis. The unenhanced pancreas, spleen, and adrenal glands unremarkable. Mild bilateral perinephric edema is noted. No ureteral stones. No hydronephrosis. A few bilateral hypodense lesions seen within the kidneys. These are incompletely characterize on this noncontrast study but favor cysts. Dominant right renal le gogo measures 2.7 cm. The dominant left renal lesion measures 2.3 cm. Further characterization with a follow-up nonemergent renal ultrasound is recommended. Normal caliber abdominal aorta. No retroperitoneal or pelvic lymphadenopathy. The bladder is unremarkable. There is an abnormal gas and fluid collection loculated between the prostate gland and rectum on image 402 measuring approximately 4.1 x 2.1 cm. There is also abnormal thickening within the right puborectalis sling with a possible small tubular tract extending to the right perianal location. This may represent a right perianal fistula best seen on images 410 through 431. Mild perianal fat stranding is noted. Therefore, the abnormal gas and fluid collection located between the prostate gland and rectum may represent supralevator extension of a perianal fistula with abscess formation. Clinical correlation recommended to exclude the possibility of hydrogel placement in the setting of prior prostate radiation therapy. Suboptimal evaluation for bowel pathology due to the lack of intravenous and oral contrast. However, no evidence for a bowel obstruction. Normal appendix. IMPRESSION: 1. There is an abnormal gas and fluid collection loculated between the prostate gland and rectum measuring approximately 4.1 x 2.1 cm. There is also abnormal thickening within the right puborectalis sling with a possible small tubular tract extending to the right perianal location. Therefore, the abnormal gas and fluid collection located between the prostate gland and rectum may represent supralevator extension of a right-sided perianal fistula with abscess formation. Clinical correlation recommended to exclude the possibility of hydrogel placement in the setting of prior prostate radiation therapy which could also account for this abnormal gas and fluid collection posterior to the prostate gland. 2. Mild bilateral perinephric edema. This may be chronic. Recommend correlation with urinalysis to exclude the possibility of a pyelonephritis. 3. Distended gallbladder. No gallbladder wall thickening. 4. Bilateral renal hypodense lesions. These are technically indeterminate on this study but favor cysts. Follow-up nonemergent renal ultrasound recommended for confirmation. 5. A 2.4 cm thick-walled cavitary focus within the base of the left lower lobe. This could represent a cavitary pneumonia. However, [address] follow-up recommended to ensure resolution. 6. Additional findings as described above.
--- OUTSIDE RECORDS SUMMARY | 2023-12-18 08:55 | External Medical Summary | Summary of Care ---
Author Name Unknown Organization [facility] Address [address] [place] [address] Phone [phone] Care Team Providers Care Faculty Administrator Name Role Phone Raul Still MD Primary Care Provide r Reason for Referral * Precert (Within 10 days (routine)) - Authorized Specialty Diagnoses / Procedures Referred By Steve trevino Referred To Contact Radiology Diagnoses Lymphoma, unspecified body region, unspecified lymphoma type (HCC) Procedures PET WHOLE BODY FDG Akhil Montoya MD [address] [place] [address] Referral ID Status Reason Start Date Expiration Date V isits Requested Visits Authorized [id number] Authorized 12/17/2023 999 [id number] Reason for Visit * Reason Comments NEW PATIENT RIGHT KNEE SWOLLEN * Evaluate & Treat - Unlimited Visits (Within 3 days (urgent)) - Authorized Specialty Diagnoses / Procedures Referred By Steve trevino Referred To Contact Orthopaedic Surgery / Orthopedics Diagnoses Pain of right thigh Mass of leg, right Wilver Bonds MD [address] [place] [address] Referral ID Status Reason Start Date Expiration Date Visits Requested Visits Authorized [id number] Authorized Specialty Services Required 12/11/2023 999 [id number] Encounter Details Date Type Department Care Team (Late st Contact Info) Description 12/16/2023 2:30 PM EDT [facility] [address] [place] [address] Sebas Sheridan MD [address] [place] [address] Lymphoma, unspecified body region, unspecified lymphoma type (HCC)* Allergies No known active allergiesdocumented as of this encounter (statuses as of 12/17/2023) Medications Medication Sig Dispensed Refills Start Date End Date Status Atenolol 25 MG Oral Tablet (Tenormin)Indicati ons:Primary hypertension TAKE 1 TABLET BY MOUTH EVERY DAY IN THE MORNING 90 Tablet 1 07/13/2023 Active Enalapril Maleate 20 MG Oral Tablet (Vasotec)Indicatio ns:Primary hypertension TAKE 1 TABLET BY MOUTH EVERY DAY WITH THE 10MG TABS FOR TOTAL DAILY DOSE OF 30MG 90 Tablet 1 07/13/2023 Active Baclofen 20 MG Oral TabletIndications: Acute bilateral low back pain without sciatica,Pain of right lower leg Take 1 Tablet by mouth in the morning and 1 Tablet at noon and 1 Tablet before bedtime. 30 Tablet 1 10/30/2023 Active Naproxen 500 MG Oral Tablet (Naprosyn)Indicati ons:Sprain of ligament of lumbosacral joint, sequela,DDD (degenerative disc disease), lumbosacral Take 1 Tablet by mouth 2 times a day as needed for Pain. 180 Tablet 1 10/30/2023 Active Simvastatin 20 MG Oral Tablet (Zocor)Indications :Dyslipidemia, goal LDL below 130 TAKE 1 TABLET BY MOUTH EVERYDAY AT BEDTIME 90 Tablet 2 11/16/2023 Active Enalapril Maleate 10 MG Oral Tablet (Vasotec)Indicatio ns:Primary hypertension TAKE 1 TABLET BY MOUTH EVERY DAY IN THE MORNING 90 Tablet 2 11/16/2023 Active Chlorthalidone 25 MG Oral Tablet (Hygroton)Indicati ons:Primary hypertension TAKE 1 TABLET BY MOUTH EVERY DAY IN THE MORNING 90 Tablet 2 11/16/2023 Active predniSONE 20 MG Oral Tablet (Deltasone)Indicat ions:Pain of right lower leg 1 tab 3 times a day for 3 days, then 1 tab 2 times a day for 3 days, then 1 tab daily for 3 days 18 Tablet 0 10/30/2023 4 Discontinue d(Patient preference/ discontinua tion) methylPREDNISolone 4 MG Oral Tablet Therapy Pack (Medrol Dosepack) follow package directions 21 Tablet 0 11/05/2023 4 Discontinue d(Patient preference/ discontinua tion) Hospital, Clinic, or Other Facility Administered Medication Ordered Dose Route Frequency Start Date End Date Status traMADol (Ultram) tab 50 mgIndications:Lymphoma, unspecified body region, unspecified lymphoma type (HCC) 50 mg OR Q6H PRN 12/16/2023 Active documented as of this encounter (statuses as of 12/17/2023) Active Problems Problem Noted Date Diagnosed Date Lymphoma 12/16/2023 BMI 35.0-35.9,adult 07/13/2023 Obstructive sleep apnea 12/09/2018 Overview: Dr Bell Dyslipidemia, goal LDL below 130 12/31/2010 Primary hypertension 08/08/2009 Overview: Modified per HTN protocol #16. LUMBAGO 03/16/2006 ADVANCE DIRECTIVE INFORMATION 02/26/2006 Overview: No, Advance Directive brochure given to patient at prior appointment. DDD (degenerative disc disease), lumbosacral documented as of this encounter (statuses as of 12/17/2023) Resolved Problems Problem Noted Date Diagnosed Date Resolved Date Acute bilateral low back kaity n without sciatica 08/05/2016 08/06/2017 BMI 34.0-34.9,adult 04/21/2013 08/23/20 19 Dyslipidemia, goal to be determined 12/16/2004 12/31/2010 HYPERTENSION NOS 08/08/2009 Overview: Modified per HTN protocol #16. Allergic rhinitis 08/06/2017 documented as of this encounter (statuses as of 12/17/2023) Immunizations Name Administration Dates Next Due COVID-19 mRNA, LNP-s, No Pre serve, 2-Dose Series ([employer]) 12/20/2021,05/21/2021,10/02/2020,2019 COVID-19, MRNA-LNP, 23-24, P F, 30 MCG/0.3 mL, 12 YRS AND ABOVE, IM (PFIZER-Comirnaty) 07/13/2023 Seasonal Influenza, PF, 6 M & above, IM , (FluLaval or Fluzone) 06/27/2023,06/28/2022 Seasonal Influenza, Quadriva lent, No Preserve, IM 07/21/2021,06/17/2020,06/14/2019,2015 Seasonal Influenza, Split, I IV3, With Preserve, Inj 06/21/2018,07/07/2017,06/21/2013,2010,06/21/2010 TDAP (age 10 and older)(Boostrix) 07/30/2018 TDAP (age 11 and older)(Adacel) 01/11/2008 Zoster Vaccine Recombinant (Shingrix) 10/02/2021 ,08/01/2021 documented as of this encounter Social History Tobacco Use Types Packs/Day Years Used Date Smoking Tobacco: Never Smokeless Tobacco: Never Alcohol Use Standard Drinks/Week Comments No 0 (1 standard drink = 0.6 oz pur e alcohol) PHQ-2 Answer Date Recorded PHQ-2 Score 0 08/23/2020 Hunger Vital Sign Answer Date Recorded Within the past 12 months, y ou worried that your food would run out before you got the money to buy more. Never true 08/23/20 20 Within the past 12 months, t he food you bought just didn't last and you didn't have money to get more. Never true 08/23/2020 Sex and Gender Information Value Date Recorded Sex Assigned at Male 10/29/2023 7:54 PM EST Gender Identity Male 10/29/2023 7:54 PM EST Sexual Orientation Straight 10/29/2023 7: 54 PM EST Job Start Date Occupation Industry Not on file Not on file Not on file documented as of this encounter Last Filed Vital Signs Vital Sign Reading Time Taken Comments Blood Pressure 82/39 12/16/2023 2:25 PM EDT Pulse 78 12/16/2023 2:25 PM EDT Temperature 36.9 C (98.5 F) 12/16/2023 2:25 PM ED T Respiratory Rate - - Oxygen Saturation 98% 12/16/2023 2:25 PM EDT Inhaled Oxygen Concentration - - Weight 88.6 kg (195 lb 6.4 oz) 12/16/2023 2:25 P M EDT Height 169 cm (5' 6.54") 12/16/2023 2:25 PM EDT Body Mass Index 31.03 12/16/2023 2:25 PM EDT documented in this encounter Progress Notes * Sebas Sheridan MD - 12/17/2023 7:03 AM EDT Orthopedic Oncology is a 57-year-old man who presents the Orthopedic Clinic with worsening right distal thigh/knee pain. The symptoms have been progressive over the last several months and are without antecedenttrauma or other apparent cause. He has noted transient improvement with steroid treatment, but overall notes that his condition is worsening. The patient has a past medical history of metabolic syndrome (BMI equals 35, dyslipidemia, and hypertension) obstructive sleep apnea, and lumbar degenerative disc disease. He has no prior history of neoplasia or infection. Filed Vitals: 12/16/23 1425 BP: 82/39 Pulse: 78 Temp: 36.9 C (98.5 F) TempSrc: Tympanic SpO2: 98% Weight: 88.6 kg (195 lb 6.4 oz) Height: 1.69 m (5' 6.54") General inspection reveals a man who appears his stated age in no acute distress. He expresses feelings of anxiety regarding his condition. Inspection of the right leg demonstrates a fusiform dilation of the right distal thigh and proximal knee with a moderate effusion of the right knee. He demonstrates full active knee extension and knee flexion with mild tenderness. Palpation of the right distal thigh demonstrates mild tenderness. No erythema or induration; the skin overlying the thigh is soft and mobile. There is also a firmness and mild tenderness in the proximal calf and popliteal space of the right knee. The patient demonstrates reduced active right foot dorsiflexion due to a stretching sensation and tenderness in the proximal calf. Similarly, he notes a stretching sensation with full active knee extension. There is no palpable right inguinal lymphadenopathy. Radiographic examination: Two views of the right femur were obtained in the orthopaedic clinic today. To my eye, the images demonstrate a permeative, purely lytic bone lesion of the right distal femoral metaphysis and epiphysis without periosteal reaction. Cortical disruption is not apparent on theplain x-rays. There are no degenerative changes about the knee or right hip. A recent MRI of the right femur obtained on December 11, 2023 again demonstrates signal abnormality ofthe right distal femoral diaphysis extending to the epiphysis with cortical disruption and soft tissue mass/enhancement. To my eye, the appearance of the bone lesion is most consistent with lymphoma of bone, or similar neoplasia. I recognize the radiology report suggests the possibility of osteomyelitis, which is certainly a possibility. 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 Other neoplasms and atypical infection is possible. The patient's lack of significant pain in the right distal femur with only mild tenderness is not consistent with most infections. Atypical infection, such as mycobacteria, could present with such mild symptoms. However, I would expect more bony changes on the plain x-ray with atypical infection orchronic infection. So, the patient's history and physical examination, in light of the patient's x-ray findings are much more suggestive, my clinical opinion, for neoplasia. At this time I recommend that we proceed with a biopsy. I believe the biopsy is the best next test to determine the etiology of the disease of the right distal femur and plan for appropriate treatment. I discussed the risks, benefits, and alternatives of a biopsy of the right distal femur. The patient is in strong agreement and wishes to proceed with biopsy as soon as possible. He freely signs a written informed consent document. Plan: #1 Pending biopsy of right distal femur December 18, 2023. #2 I recommend a laboratory evaluation including CBC with diff, CMP, LDH, sed rate and C-reactive protein, and to be complete, prostate specific antigen (PSA). #3 I recommend that we plan for systemic staging via a PET-CT scan. I recommend a whole-body PET-CT scan rather than the usual skull base to mid thigh as the tumor in evaluation is distal to the midthigh. I saw and examined the patient with Dr. Davi Montoya MD, performing a history and physical examination. Together, we reviewed the associated imaging. I agree with his findings and plan of care. Sebas Sheridan MD Orthopedics Addendum: The patient's completed laboratory values demonstrate a markedly elevated CRP and sedimentation rate. These findings are nonspecific and could be consistent with both neoplasia and infection. The patient's elevated LDH is consistent with my suspicion of neoplasia, specifically lymphoma. The PSA is normal. An immunofixation and serum electrophoresis is currently pending. My plan remains unchanged. We will proceed with a biopsy tomorrow. Sebas Sheridan MD * Akhil Montoya MD - 12/16/2023 4:29 PM EDT ORTHOPAEDIC SURGERY OUTPATIENT NOTE 12/16/2023 Rogelio Barrera : 1965 HISTORY OF PRESENT ILLNESS: Rogelio Barrera is 57 year old male who presents for evaluation of right knee pain. The patient states he 1st noted the pain when he was out shoveling in the middle of September. He had x-rays of his right knee which did not show significant findings. He then subsequently hadan MRI of his knee and then an MRI of the right femur which showed findings suggestive of potentialinfection versus tumor. The patient has had worsening pain of the right knee and leg which has now limited his ability to ambulate. The patient is largely toe-touch weight-bearing using a walker or crutches on the right lower extremity. He has not been febrile or noted significant erythema in the right knee. The patient has noted swelling throughout the right lower extremity. He has not noted anynumbness or tingling of the right lower extremity. ALLERGIES: Patient has no known allergies. MEDICATIONS: Current Outpatient Medications Medication Sig Dispense Refill Atenolol 25 MG Oral Tablet (Tenormin) TAKE 1 TABLET BY MOUTH EVERY DAY IN THE MORNING 90 Tablet 1 Enalapril Maleate 20 MG Oral Tablet (Vasotec) TAKE 1 TABLET BY MOUTH EVERY DAY WITH THE 10MG TABS FOR TOTAL DAILY DOSE OF 30MG 90 Tablet 1 Baclofen 20 MG Oral Tablet Take 1 Tablet by mouth in the morning and 1 Tablet at noon and 1 Tablet before bedtime. 30 Tablet 1 Naproxen 500 MG Oral Tablet (Naprosyn) Take 1 Tablet by mouth 2 times a day as needed for Pain. 180Tablet 1 Simvastatin 20 MG Oral Tablet (Zocor) TAKE 1 TABLET BY MOUTH EVERYDAY AT BEDTIME 90 Tablet 2 Enalapril Maleate 10 MG Oral Tablet (Vasotec) TAKE 1 TABLET BY MOUTH EVERY DAY IN THE MORNING 90 Tablet 2 Chlorthalidone 25 MG Oral Tablet (Hygroton) TAKE 1 TABLET BY MOUTH EVERY DAY IN THE MORNING 90 Tablet 2 Current Facility-Administered Medications Medication Dose Route Frequency Provider Last Rate Last Admin traMADol (Ultram) tab 50 mg 50 mg Oral Q6H SILVIAN Akhil Montoya MD PAST MEDICAL HISTORY: Past Medical History: Diagnosis Date Allergic rhinitis BMI 35.0-35.9,adult DDD (degenerative disc disease), lumbosacral Dyslipidemia, goal LDL below 130 Encounter for hepatitis C screening test for low risk patient 11/10/2021 negative Essential hypertension with goal blood pressure less than 140/90 Obstructive sleep apnea 12/09/2018 Dr Bell PAST SURGICAL HISTORY: Past Surgical History: Procedure Laterality Date COLONOSCOPY W/ LESION REMOVAL, SNARE 03/04/2019 rectal polyp at 10 cm REMOVAL OF ADENOIDS, UNDER AGE 12 FAMILY HISTORY: Family History Problem Relation Age of Onset Cancer Mother panreatic Heart Disorder Father Hypertension Father Cancer Grandmother (Maternal) stomach PHYSICAL EXAMINATION: BP 82/39 (BP Site: Right Arm, BP Position: Sitting, BP Cuff Size: Regular) | Pulse 78 | Temp 36.9 C (98.5 F) (Tympanic) | Ht 1.69 m (5' 6.54") | Wt 88.6 kg (195 lb 6.4 oz) | SpO2 98% | BMI 31.03 kg/m | BSA 2.04 m General: NAD, appears stated age, well nourished HEENT: MMM, head atraumatic, normocephalic Lungs: normal work of breathing, chest CTAB CV: RRR, pulses regular in periphery Skin: No obvious rashes or lesions Psych: A&Ox3, appropriate mood and affect Musculoskeletal: Right lower extremity Tenderness to palpation in the lateral gastrocs Mild tenderness along the medial distal femur Moderate swelling throughout the entirety of the right lower extremity Patient holds the right knee in a slightly flexed position due to pain, he is unable to completely extend the knee due to pain There was no significant joint effusion on exam however there is significant swelling around the distal femur No pain with internal or external rotation of the hip No palpable lymphadenopathy in the groin Sensation intact to light touch in the sural/saphenous/superficial peroneal/tibial nerve distributions Foot warm and well perfused IMAGING: X-ray of the right femur and MRI of the right femur independently interpreted today in clinic revealing permeative lytic bone lesions throughout the patient's distal femur as well as contrast-enhancing bone lesion throughout the distal femur on MRI suggestive of possible lymphoma ASSESSMENT: 57-year-old male presenting with permeative lytic bone lesion of the right distal femurconcerning for possible lymphoma versus potential infection PLAN: We discussed with the patient the x-ray and MRI findings. We discussed our concern for lymphoma. Wealso discussed the possible risk for pathologic fracture. We discussed our recommendation for toe-touch weight-bearing with a walker or crutches. We discussed our recommendation to proceed with urgent biopsy. We will plan to have the patient return for biopsy on 12/18/2023. We also discussed our recommendation for laboratory workup. Today we will obtain an ESR, CRP, CBC with differential, CMP, SPEP, serum immunofixation, PSA. We also recommend staging with a PET scan. We will schedule this for 12/22/2023. Patient will be NPO at 2400 on 12/17/2023 Informed consent obtained today in clinic The patient was seen and examined with Dr. Sheridan who formulated the plan of care. Akhil Montoya MD PGY-3 12/16/2023 4:29 PM documented in this encounter Plan of Treatment Upcoming Encounters Date Type Department Care Team (Latest Contact Info) Description 12/18/2023 9:49 AM EDT Hospital Encounter [place], [place] [facility] [place] [facility] [address] [place] [address] Sebas Sheridan MD [address] [place] [address] 12/18/2023 9:49 AM EDT - 12/18/2023 11:33 AM EDT Surgery [place] [facility] [place] [address] [place] [address] Sebas Sheridan MD [address] [place] [address] BIOPSY BONE TROCAR OR NEEDLE DEEP 12/22/2023 8:45 AM EDT Imaging Radiology [address] [facility] [place] [address] 01/04/2024 3:30 PM EDT Office Visit Orthopaedics, [place] [address] [place] [address] Sebas Sheridan MD [address] [place] [address] 03/15/2024 1:20 PM EDT Office Visit Sleep Disorders Ctr [facility] [address] [facility] [place] [phone] Madai Rousseau DO [address] [facility] [place] [address] 03/17/2024 10:40 AM EDT Office Visit [address] [place] [phone] Raul Still MD [address] [place] [address] [place] [id number] Pending Results Name Type Priority Associated Diagnoses Date/Time XR FEMUR MINIMUM 2 VIEWS Medical Imaging Routine Lymphoma, unspecified body region, unspecified lymphoma type (HCC) 12/16/2023 3:45 PM EDT SERUM PROTEIN ELECTROPHORESIS REFLEX PROFILE Lab Routine Lymphoma, unspecified body region, unspecified lymphoma type (HCC) 12/16/2023 4:38 PM EDT SERUM IMMUNOFIXATION Lab Routine Lymphoma, unspecified body region, unspecified lymphoma type (HCC) 12/16/2023 4:38 PM EDT Scheduled Orders Name Type Priority Associated Diagnoses Orde r Schedule SERUM IMMUNOFIXATION Lab Routine Lymphoma, unspecified body region, unspecified lymphoma type (HCC) Expected: 12/16/2023, Expires: 12/15/2024 PET WHOLE BODY FDG Medical Imaging Routine Lymphoma, unspecified body region, unspecified lymphoma type (HCC) Expected: 12/17/2023, Expires: 01/15/2025 Scheduled Procedures Name Priority Associated Diagnoses Date/Ti me BIOPSY BONE TROCAR OR NEEDLE DEEP Lymphoma, unspecified body region, unspecified lymphoma type (HCC) 12/18/2023 9:49 AM EDT Health Maintenance Due Date Last Done Comments Pneumococcal Vaccine: Pediatrics (0 to 5 Years) and At-Risk Patients (6 to 64 Years) (1 of 2 - PCV) 1972 HIV Screening 1981 Hepatitis B (1 of 3 - 19+ 3-dose series) 1985 Cologuard 12/24/2011 Fecal Occult Blood Test 12/24/2011 Sigmoidoscopy 12/24/2011 Depression Screening 08/23/2021 08/23/2020 Albumin/Creatinine Ratio 11/10/2024 11/10/2021, 05/2020 GFR 12/15/2024 12/16/2023, 06/21, 11/10/2021, Additional history exists Diabetes Screening 12/15/2026 12/16/2023, 1 , 11/10/2021, Additional history exists Lipid Panel 07/09/2028 07/09/2023, 10/23, 08/28/2020, Additional history exists DTaP,Tdap,and Td Vaccines (3 - Td or Tdap) 07/30/2028 07/30/2018, 01/11/2008 Colonoscopy 03/04/2029 03/04/2019 Colorectal Cancer Screening 03/04/2029 Zoster Vaccines Completed 10/02/2021, 08/01/2021 Influenza Vaccine (FLU shot) Completed 03/2023, 06/28/2022, 07/21/2021, Additional history exists COVID-19 Vaccine Completed 07/13/2023, 09/2021, 05/21/2021, Additional history exists GARDASIL-HPV IMMUNIZATION SERIES Aged Out No longer eligible based on patient's age to complete this topic MENINGOCOCCAL (MENACTRA/MENVEO) Aged Out No longer eligible based on patient's age to complete this topic documented as of this encounter Medical Devices Not on filedocumented as of this encounter Results * PSA (12/16/2023 4:38 PM EDT) PSA 0.49 <3.10 ng/mL 12/16/2023 5:54 PM EDT LAB[facility]ATORY [facility] Blood Venous blood specimen / Unknown Venipuncture / Unknown 12/16/2023 4:38 PM EDT 12/16/2023 5:03 PM EDT Akhil Montoya MD LAB BLOOD ORDERABLES Performing Organization Address City/[facility]/ZIP Co de Phone Number LABORATORY [facility] [place] [address] [place] [address] * (ABNORMAL) LD (12/16/2023 4:38 PM EDT) LD 255(H) <=250 U/L 12/16/2023 7:23 PM EDT [facility] Comment:Result may be falsel y elevated due to hemolysis. Blood Venous blood specimen / Unknown Venipuncture / Unknown 12/16/2023 4:38 PM EDT 12/16/2023 5:03 PM EDT Akhil Montoya MD LAB BLOOD ORDERABLES Performing Organization Address [facility] Co de Phone Number LABORATORY [facility] [place] [address] [place] [address] * (ABNORMAL) COMPREHENSIVE METABOLIC PANEL (12/16/2023 4:38 PM EDT) BUN 40(H) 6 - 20 mg/dL 12/16/2023 5:47 PM EDT [facility] Creatinine 1.9(H) 0.6 - 1.2 mg/dL 12/16/2023 5:47 PM EDT LABORATORY [facility] [place] Estimated Glomerular Filtration Rate 41(L) >=60 mL/min 12/16/2023 5:47 PM EDT [facility] Comment:eGFR is calculated b ased on the CKD-EPI 2020 equation Sodium 124(L) 135 - 146 mmol/L 12/16/2023 5:47 PM EDT [facility] Potassium 5.3(H) 3.5 - 5.1 mmol/L 12/16/2023 5:47 PM EDT [facility] Chloride 86(L) 98 - 107 mmol/L 12/16/2023 5:47 PM EDT [facility] CO2 22 22 - 32 mmol/L 12/16/2023 5:47 PM EDT [facility] Anion Gap 16(H) 7 - 15 mmol/L 12/16/2023 5:47 PM EDT [facility] Glucose 99 70 - 120 mg/dL 12/16/2023 5:47 PM EDT [facility] Albumin 2.9(L) 3.8 - 5.0 g/dL 12/16/2023 5:47 PM EDT [facility] AST 46 10 - 50 U/L 12/16/2023 5:47 PM EDT [facility] Comment:Result may be falsel y elevated due to hemolysis. Alkaline Phosphatase 117 35 - 130 U/L 12/16/2023 5:47 PM EDT [facility] Bilirubin, Total 0.5 <=1.2 mg/dL 12/16/2023 5:47 PM EDT [facility] Calcium 9.3 8.4 - 10.2 mg/dL 12/16/2023 5:47 PM EDT [facility] Protein 7.2 6.0 - 8.3 g/dL 12/16/2023 5:47 PM EDT [facility] ALT 67(H) 10 - 50 U/L 12/16/2023 5:47 PM EDT [facility] Blood Venous blood specimen / Unknown Venipuncture / Unknown 12/16/2023 4:38 PM EDT 12/16/2023 5:03 PM EDT Akhil Montoya MD LAB BLOOD ORDERABLES [facility]AT[facility] [place] [address] [place] [address] * (ABNORMAL) CRP (INFLAMMATORY MARKER) (12/16/2023 4:38 PM EDT) CRP (Inflammatory Marker) 311(H) <=5 mg/L 12/16/2023 5:47 PM EDT [facility] Blood Venous blood specimen / Unknown Venipuncture / Unknown 12/16/2023 4:38 PM EDT 12/16/2023 5:03 PM EDT Akhil Montoya MD LAB BLOOD ORDERABLES [facility]AT[facility] [place] [address] [place] [address] * (ABNORMAL) ERYTHROCYTE SEDIMENTATION RATE (ESR) (12/16/2023 4:38 PM EDT) ESR 88(H) <20 mm/hour 12/16/2023 5:59 PM EDT LABORATORY [facility] Blood Venous blood specimen / Unknown Venipuncture / Unknown 12/16/2023 4:38 PM EDT 12/16/2023 5:02 PM EDT Akhil Montoya MD LAB BLOOD ORDERABLES Performing Organization Address [facility] Co de Phone Number LABORATORY [facility] [place] [address] [place] [address] documented in this encounter Visit Diagnoses Diagnosis Lymphoma, unspecified body region, unspecified lymphoma type (HCC)- Primary Lymphoma (HCC)- Primary Other malignant lymphomas, unspecified site, extranodal and solid organ sites Lymphoma, unspecified body region, unspecified lymphoma type (HCC) documented in this encounter Care Teams Faculty Administrator Relationship Specialty Start Date End Date Raul Still MD [address] [place] [address] [place] [phone] PCP - General Family Medicine 10/30/23 documented as of this encounter
--- OUTSIDE RECORDS SUMMARY | 2023-12-18 08:55 | External Medical Summary | Summary of Care ---
Author Name Unknown Organization [facility] Address [address] [place] [address] Phone [phone] Care Team Providers Care Firer Low Pressure Name Role Phone Raul Still MD Primary Care Provide r Encounter Details Date Type Department Care Team (Latest Contact Info) Description 12/16/2023 3:22 PM EDT - 12/16/2023 11:59 PM EDT Hospital Encounter Radiology, [place] [address] [place] [address] Arrived Discharge Disposition: Home - Self Care Allergies No known active allergiesdocumented as of this encounter (statuses as of 12/17/2023) Medications Medication Sig Dispensed Refills Start Date End Date Status Atenolol 25 MG Oral Tablet (Tenormin)Indications :Primary hypertension TAKE 1 TABLET BY MOUTH EVERY DAY IN THE MORNING 90 Tablet 1 07/13/2023 Active Enalapril Maleate 20 MG Oral Tablet (Vasotec)Indications: Primary hypertension TAKE 1 TABLET BY MOUTH EVERY DAY WITH THE 10MG TABS FOR TOTAL DAILY DOSE OF 30MG 90 Tablet 1 07/13/2023 Active Baclofen 20 MG Oral TabletIndications:Acu [place] bilateral low back pain without sciatica,Pain of right lower leg Take 1 Tablet by mouth in the morning and 1 Tablet at noon and 1 Tablet before bedtime. 30 Tablet 1 10/30/2023 Active Naproxen 500 MG Oral Tablet (Naprosyn)Indications :Sprain of ligament of lumbosacral joint, sequela,DDD (degenerative disc disease), lumbosacral Take 1 Tablet by mouth 2 times a day as needed for Pain. 180 Tablet 1 10/30/2023 Active Simvastatin 20 MG Oral Tablet (Zocor)Indications:Dy slipidemia, goal LDL below 130 TAKE 1 TABLET BY MOUTH EVERYDAY AT BEDTIME 90 Tablet 2 11/16/2023 Active Enalapril Maleate 10 MG Oral Tablet (Vasotec)Indications: Primary hypertension TAKE 1 TABLET BY MOUTH EVERY DAY IN THE MORNING 90 Tablet 2 11/16/2023 Active Chlorthalidone 25 MG Oral Tablet (Hygroton)Indications :Primary hypertension TAKE 1 TABLET BY MOUTH EVERY DAY IN THE MORNING 90 Tablet 2 11/16/2023 Active Hospital, Clinic, or Other Facility Administered Medication [...] mRNA, LNP-s, No Pre serve, 2-Dose Series ([employer] 12/20/2021,05/21/2021,10/02/2020,2019 COVID-19, MRNA-LNP, 23-24, P F, 30 [...] on file documented as of this encounter Plan of Treatment Upcoming Encounters Date Type Department Care Team (Latest Contact Info) Description 12/18/2023 9:49 AM EDT Hospital Encounter [facility] [place]EN[place] PAVJANESSAON [address] [place] [phone] Sebas Sheridan MD [address], [place] [phone] 12/18/2023 9:49 AM EDT - 12/18/2023 11:27 AM EDT Surgery OR [facility] ELENI PAVILIANG [address] [place] [address] Sebas Sheridan MD [address], [place] [phone] BIOPSY BONE TROCAR OR NEEDLE DEEP 12/22/2023 8:45 AM EDT Imaging Radiology [address] 132 [facility] [place] [address] 01/04/2024 3:30 PM EDT Office Visit Orthopaedics, [place] [address] [place] [address] Sebas Sheridan MD [address] [place] [address] 03/15/2024 1:20 PM EDT Office Visit Sleep Disorders [facility]tr [facility] [address] [facility] [place] [phone] Madai Rousseau DO 132 [facility] [place] [address] 03/17/2024 10:40 AM EDT Office Visit Family Medicine [address] [place] [phone] Raul Still MD [address] [place] [address] [place] [address] Pending Results Name Type Priority Associated Diagnoses Date /Time XR FEMUR MINIMUM 2 VIEWS Medical Imaging Routine Lymphoma, unspecified body region, unspecified lymphoma type (HCC) 12/16/2023 3:45 PM EDT Scheduled Procedures Name Priority Associated Diagnoses Date/Ti [...] Screening 08/23/2021 08/23/2020 Albumin/Creatinine Ratio 11/10/2024 11/10/2021, 1205/2020 GFR 12/15/2024 12/16/2023, 06/21, 11/10/2021, Additional history [...] Not on filedocumented as of this encounter Care Teams Firer Low Pressure Relationship Specialty Start Date End Date Raul Still MD [address] [place] [address] [place] [phone] PCP - General Family Medicine 10/30/23 documented as of this encounter
--- OUTSIDE RECORDS SUMMARY | 2023-12-18 08:56 | External Medical Summary ---
Author Name Unknown Address Unknown Organization K01:[facility] - [address] [place] [address] Laboratory Report Ordering Provider Test Date Status TERE PENA 12/16/2023 16:38:05 Final Observation Date Value Abnormality Reference (Units ) Status CRP, low-sensitivity 12/16/2023 16:38:05 311 Above high normal <=5 (mg/L) Final Performing Location [facility] - [address] [place] [address]
--- OUTSIDE RECORDS SUMMARY | 2023-12-18 08:56 | External Medical Summary | Summary of Care ---
Author Name Unknown Organization [facility] [address] [facility] [address] Phone [phone] Care Team Providers Care Elocution Teacher Name Role Phone Raul Still MD Primary Care Provide r Encounter Details Date Type Department Care Team (Late st Contact Info) Description 12/16/2023 Patient Reported Data Patient Survey Ortho OBERD Allergies No known active allergiesdocumented as of this encounter (statuses as of 12/16/2023) Medications Medication Sig Dispensed Refills Start Date End Date Status Atenolol 25 MG Oral Tablet (Tenormin)Indication s:Primary hypertension TAKE 1 TABLET BY MOUTH EVERY DAY IN THE MORNING 90 Tablet 1 07/13/2023 Active Enalapril Maleate 20 MG Oral Tablet (Vasotec)Indications :Primary hypertension TAKE 1 TABLET BY MOUTH EVERY DAY WITH THE 10MG TABS FOR TOTAL DAILY DOSE OF 30MG 90 Tablet 1 07/13/2023 Active Baclofen 20 MG Oral TabletIndications:Ac [place] bilateral low back pain without sciatica,Pain of right lower leg Take 1 Tablet by mouth in the morning and 1 Tablet at noon and 1 Tablet before bedtime. 30 Tablet 1 10/30/2023 Active predniSONE 20 MG Oral Tablet (Deltasone)Indicatio ns:Pain of right lower leg 1 tab 3 times a day for 3 days, then 1 tab 2 times a day for 3 days, then 1 tab daily for 3 days 18 Tablet 0 10/30/2023 Active Naproxen 500 MG Oral Tablet (Naprosyn)Indication s:Sprain of ligament of lumbosacral joint, sequela,DDD (degenerative disc disease), lumbosacral Take 1 Tablet by mouth 2 times a day as needed for Pain. 180 Tablet 1 10/30/2023 Active methylPREDNISolone 4 MG Oral Tablet Therapy Pack (Medrol Dosepack) follow package directions 21 Tablet 0 11/05/2023 Active Simvastatin 20 MG Oral Tablet (Zocor)Indications:D yslipidemia, goal LDL below 130 TAKE 1 TABLET BY MOUTH EVERYDAY AT BEDTIME 90 Tablet 2 11/16/2023 Active Enalapril Maleate 10 MG Oral Tablet (Vasotec)Indications :Primary hypertension TAKE 1 TABLET BY MOUTH EVERY DAY IN THE MORNING 90 Tablet 2 11/16/2023 Active Chlorthalidone 25 MG Oral Tablet (Hygroton)Indication s:Primary hypertension TAKE 1 TABLET BY MOUTH EVERY DAY IN THE MORNING 90 Tablet 2 11/16/2023 Active documented as of this encounter (statuses as of 12/16/2023) Active Problems Problem Noted Date Diagnosed Date BMI 35.0-35.9,adult 07/13/2023 Obstructive sleep apnea 12/09/2018 Overview: Dr Bell Dyslipidemia, goal LDL below 130 12/31/2010 Primary hypertension 08/08/2009 Overview: Modified per HTN protocol #16. LUMBAGO 03/16/2006 ADVANCE DIRECTIVE INFORMATION 02/26/2006 Overview: No, Advance Directive brochure given to patient at prior appointment. DDD (degenerative disc disease), lumbosacral documented as of this encounter (statuses as of 12/16/2023) Resolved Problems Problem Noted Date Diagnosed Date Resolved Date Acute bilateral low back kaity n without sciatica 08/05/2016 08/06/2017 BMI 34.0-34.9,adult 04/21/2013 08/23/20 19 Dyslipidemia, goal to be determined 12/16/2004 12/31/2010 HYPERTENSION NOS 08/08/2009 Overview: Modified per HTN protocol #16. Allergic rhinitis 08/06/2017 documented as of this encounter (statuses as of 12/16/2023) Immunizations Name Administration Dates Next Due COVID-19 mRNA, LNP-s, No Pre serve, 2-Dose Series ([employer]) 12/20/2021,05/21/2021,10/02/2020,2019 COVID-19, MRNA-LNP, 23-24, P F, 30 [...] Upcoming Encounters Date Type Department Care Team (Late st Contact Info) Description 12/16/2023 2:30 PM EDT Office Visit Orthopaedics, [place] [address] [place] [address] Sebas Sheridan MD [address] [place] [address] Arrived 03/15/2024 1:20 PM EDT Office Visit Sleep Disorders Ctr [facility] [address] [place] [phone] Madai Rousseau, [address] [place] [address] 03/17/2024 10:40 AM EDT Office Visit Family Medicine [address] [phone] Raul Still MD [address] [place] [address] [place] [address] Health Maintenance Due Date Last Done Comments HIV Screening 1981 Hepatitis B (1 of 3 - 19+ 3-dose series) 1985 Cologuard 12/24/2011 Fecal Occult Blood Test 12/24/2011 Sigmoidoscopy 12/24/2011 Depression Screening 08/23/2021 08/23/2020 GFR 07/09/2024 07/09/2023, 10/23, 08/28/2020, Additional history exists Albumin/Creatinine Ratio 11/10/2024 11/10/2021, 1205/2020 Diabetes Screening 07/09/2026 07/09/2023, 0 11/10/2021, 08/28/2020, Additional history exists Lipid Panel 07/09/2028 07/09/2023, [...] on patient's age to complete this topic Pneumococcal Vaccine: Pediatrics (0 to 5 Years) and At-Risk Patients (6 to 64 Years) Aged Out No longer eligible based on patient's age to complete this topic documented as of this encounter Medical Devices Not on filedocumented as of this encounter Care Teams Elocution Teacher Relationship Specialty Start Date End Date Raul Still MD [address] [place] [address] [place] [address] PCP - General Family Medicine 10/30/23 documented as of this encounter
--- OUTSIDE RECORDS SUMMARY | 2023-12-18 08:56 | External Medical Summary ---
Author Name Unknown Address Unknown Organization [id number]:LABORATORY [facility] [place] - [facility] [address] [place] [address] Laboratory Report Ordering Provider Test Date Status TERE PENA 12/16/2023 16:38:05 Final Observation Date Value Abnormality Reference (Units ) Status WBC, Total 12/16/2023 16:38:05 19.98 Above high normal 4.00-10.80 (K/uL) Final RBC 12/16/2023 16:38:05 3.50 4.50-5.25 (M/uL) Final Hemoglobin 12/16/2023 16:38:05 9.4 Below low normal 14.0-16.8 (g/dL) Final HCT 12/16/2023 16:38:05 28.6 Below low normal 40.0-48.4 (%) Final MCV 12/16/2023 16:38:05 81.7 82.0-99.5 (fL) Final MCH 12/16/2023 16:38:05 26.9 27.0-34.0 (pg) Final MCHC 12/16/2023 16:38:05 32.9 32.0-36.0 (g/dL) Final RDW 12/16/2023 16:38:05 14.7 11.5-15.5 (%) Final Platelets 12/16/2023 16:38:05 611 Above high normal 140-400 (K/uL) Final MPV 12/16/2023 16:38:05 9.4 6.6-11.1 (fL) Final Nucleated erythrocytes/100 leukocytes [Ratio] in Blood by Automated count 12/16/2023 16:38:05 0 <=0 (/100 WBCs) Final Performing Location LAB[facility]ATORY [facility] – [place] - [address] [place] [address]
--- OUTSIDE RECORDS SUMMARY | 2023-12-18 08:56 | External Medical Summary | Summary of Care ---
Author Name Unknown Organization [facility] Address [address] [place] [address] Phone [phone] Care Team Providers Care Tone Cabinet Assembler Name Role Phone Raul Still MD Primary Care Provide r Reason for Visit * Reason Comments Outpatient Testing Encounter Details Date Type Department Care Team (Late st Contact Info) Description 12/16/2023 4:40 PM EDT Laboratory Outpatient Laboratory, [place] [address] [place] [address] [place], Lab B1a [address] [place] [address] Lymphoma, unspecified body region, unspecified lymphoma type (HCC) Allergies No known active allergiesdocumented as of [...] Care Team (Late st Contact Info) Description 12/18/2023 Hospital Encounter [facility], OPERATING [facility], [facility]ENI [place] [address] [place] [address] Sebas Sheridan MD [address] [place] [address] 12/22/2023 8:45 AM EDT Imaging Radiology [address] 132 [place] [address] 01/04/2024 3:30 PM EDT Office Visit Orthopaedics, [place] [address] [place] [address] Sebas Sheridan MD [address] [place] [address] 03/15/2024 1:20 PM EDT Office Visit [facility] Disorders Ctr [facility] 132 [place] [phone] Madai Rousseau DO 132 [facility] [place] [address] 03/17/2024 10:40 AM EDT Office Visit Family Medicine [address] [place] [phone] Raul Still MD [address] [place] [address] [place] [address] Scheduled Orders Name Type Priority Associated Diagnoses Orde r Schedule CBC Lab Routine Lymphoma, unspecified body region, unspecified lymphoma type (HCC) Ordered: 12/16/2023 DIFFERENTIAL, AUTOMATED Lab Routine Lymphoma, unspecified body region, unspecified lymphoma type (HCC) Ordered: 12/16/2023 Scheduled Procedures Name Priority Associated Diagnoses Date/Ti me BIOPSY BONE TROCAR OR NEEDLE DEEP Lymphoma, unspecified body region, unspecified lymphoma type (HCC) Health Maintenance Due Date Last Done Comments [...] Not on filedocumented as of this encounter Visit Diagnoses Diagnosis Lymphoma (HCC)- Primary Other malignant lymphomas, unspecified site, extranodal and solid organ sites Lymphoma, unspecified body region, unspecified lymphoma type (HCC) documented in this encounter Care Teams Tone Cabinet Assembler Relationship Specialty Start Date End Date Raul Still MD [address] [place] [address] [place] [address] PCP - General Family Medicine 10/30/23 documented as of this encounter
--- OUTSIDE RECORDS SUMMARY | 2023-12-18 08:56 | External Medical Summary | Summary of Care ---
Author Name Unknown Organization [facility] Address [address] [facility] [place] [address] Phone [phone] Care Team Providers Care Clutch Assembler Name Role Phone Raul Still MD [...] 07/13/2023 Active Baclofen 20 MG Oral TabletIndications:Ac [place] bilateral low back pain without sciatica,Pain of [...] EDT Office Visit Orthopaedics, [place] [address] [place] [address] Sebas Sheridan MD [address] [place] [address] Arrived 03/15/2024 1:20 PM EDT Office Visit Sleep Disorders Ctr [facility] [address] [place] [phone] Madai Rousseau, [address] [place] [address] 03/17/2024 10:40 AM EDT Office Visit Family Medicine [address] [phone] Raul Still MD [address] [place] [address] [place] [address] Health Maintenance Due Date Last Done Comments [...] filedocumented as of this encounter Care Teams Clutch Assembler Relationship Specialty Start Date End Date Raul Still MD [address] [place] [address] [place] [address] PCP - General Family Medicine 10/30/23 documented as of this encounter
--- OUTSIDE RECORDS SUMMARY | 2023-12-18 08:56 | External Medical Summary ---
Author Name Unknown Address Unknown Organization [id number]:LABORATORY [facility] [place] - [address] [facility] [place] [address] Laboratory Report Ordering Provider Test Date Status TERE PENA 12/16/2023 16:38:05 Final Observation Date Value Abnormality Reference (Units ) Status SYNC LEUKOCYTES IN BLOOD BY AUTOMATED COUNT 12/16/2023 16:38:05 19.98 Above high normal 4.00-10.80 (K/uL) Final Segs 12/16/2023 16:38:05 78.9 Above high normal 40.0-75.0 (%) Final Lymphs % 12/16/2023 16:38:05 7.6 Below low normal 18.0-42.0 (%) Final Monos 12/16/2023 16:38:05 7.4 1.0-11.0 (%) Final Eosinophils 12/16/2023 16:38:05 1.7 0.0-6.0 (%) Final Basos 12/16/2023 16:38:05 0.4 0.0-2.0 (%) Final Immature Granulocyte, Percent 12/16/2023 16:38:05 4.0 Above high normal 0.0-2.0 (%) Final Absolute Segs 12/16/2023 16:38:05 15.80 Above high normal 1.80-7.70 (K/uL) Final Lymphs, absolute 12/16/2023 16:38:05 1.52 1.00-4.80 (K/ul) Final Monos, Abs 12/16/2023 16:38:05 1.47 Above high normal 0.00-1.10 (K/uL) Final Eos, Abs 12/16/2023 16:38:05 0.33 0.00-0.70 (K/uL) Final Basos, Abs 12/16/2023 16:38:05 0.07 0.00-0.20 (K/uL) Final Immature Granulocytes, Number 12/16/2023 16:38:05 0.79 Above high normal 0.00-0.20 (K/uL) Final Performing Location LABORATORY [facility] [place] - [facility] [address] [facility] [address]
--- OUTSIDE RECORDS SUMMARY | 2023-12-18 08:56 | External Medical Summary ---
Author Name Unknown Address Unknown Organization K01:[facility] [place] [address] [facility] [address] [place] [address] Laboratory Report Ordering Provider Test Date Status TERE PENA 12/16/2023 16:38:05 Final Observation Date Value Abnormality Reference (Units) Status PARAPROTEIN NORMAL/ABNORMAL 12/16/2023 16:38:05 Normal Normal Final Protein 12/16/2023 16:38:05 7.2 6.0-8.3 (g/dL) Final Albumin/Protein.total [Pure mass fraction] in Serum or Plasma by Electrophoresis 12/16/2023 16:38:05 2.21 Below low normal 3.30-4.40 (g/dL) Final Alpha 1 globulin/Protein.tota l [Pure mass fraction] in Serum or Plasma by Electrophoresis 12/16/2023 16:38:05 0.58 Above high normal 0.10-0.30 (g/dL) Final Alpha 2 globulin/Protein.tota l [Pure mass fraction] in Serum or Plasma by Electrophoresis 12/16/2023 16:38:05 1.24 Above high normal 0.60-1.00 (g/dL) Final Beta globulin/Protein.tota l [Pure mass fraction] in Serum or Plasma by Electrophoresis 12/16/2023 16:38:05 0.89 0.80-1.30 (g/dL) Final Gamma globulin/Protein.tota l [Pure mass fraction] in Serum or Plasma by Electrophoresis 12/16/2023 16:38:05 2.28 Above high normal 0.70-1.70 (g/dL) Final Protein Fractions [Interpretation] in Serum or Plasma by Electrophoresis Narrative 12/16/2023 16:38:05 There is a small abnormality in IgG kappa. Recommend repeat testing in 3 to 6 months, if clinically necessary. Final Performing Location [facility] [place] - [address] [place] [address]
--- OUTSIDE RECORDS SUMMARY | 2023-12-18 08:57 | External Medical Summary ---
Author Name Unknown Address Unknown Organization K01:LABORATORY [facility] – [place] - [address] [place] [address] Laboratory Report Ordering Provider Test Date Status TERE PENA 12/16/2023 16:38:05 Final Observation Date Value Abnormality Reference (Units) Status PARAPROTEIN NORMAL/ABNORMAL 12/16/2023 16:38:05 Normal Normal Final Immunofixation for Serum or Plasma 12/16/2023 16:38:05 There is a small abnormality in IgG kappa. Recommend repeat testing in 3 to 6 months, if clinically necessary. Final Performing Location LABORATORY [facility] [place] - [address] [place] [address]
--- OUTSIDE RECORDS SUMMARY | 2023-12-18 08:57 | External Medical Summary | Summary of Care ---
Author Name Unknown Organization [facility] Address [address] [facility] [place] [address] Phone [phone] Care Team Providers Care Procurement Technician Name Role Phone Raul Still MD Primary Care Provide r Encounter Details Date Type Department Care Team (Late st Contact Info) Description 12/15/2023 Patient Reported Data Patient Survey Ortho OBERD Allergies No known active allergiesdocumented as of this encounter (statuses as of 12/15/2023) Medications Medication Sig Dispensed Refills Start Date [...] 07/13/2023 Active Baclofen 20 MG Oral TabletIndications:Ac [place] bilateral low back pain without sciatica,Pain of [...] as of this encounter (statuses as of 12/15/2023) Active Problems Problem Noted Date Diagnosed Date BMI 35.0-35.9,adult 07/13/2023 Obstructive sleep apnea 12/09/2018 Overview: Dr Bell Dyslipidemia, goal LDL below 130 12/31/2010 Primary hypertension 08/08/2009 Overview: Modified per HTN protocol #16. LUMBAGO 03/16/2006 ADVANCE DIRECTIVE INFORMATION 02/26/2006 Overview: No, Advance Directive brochure given to patient at prior appointment. DDD (degenerative disc disease), lumbosacral documented as of this encounter (statuses as of 12/15/2023) Resolved Problems Problem Noted Date Diagnosed Date Resolved Date Acute bilateral low back kaity n without sciatica 08/05/2016 08/06/2017 BMI 34.0-34.9,adult 04/21/2013 08/23/20 19 Dyslipidemia, goal to be determined 12/16/2004 12/31/2010 HYPERTENSION NOS 08/08/2009 Overview: Modified per HTN protocol #16. Allergic rhinitis 08/06/2017 documented as of this encounter (statuses as of 12/15/2023) Immunizations Name Administration Dates Next Due COVID-19 [...] 12/16/2023 2:30 PM EDT Office Visit Orthopaedics, [place] [address] [place] [address] Sebas Sheridan MD [address] [place] [address] 12/17/2023 2:00 PM EDT Office Visit Orthopaedics [address] [phone] Wilver Bonds MD [address] [place] [address] 03/15/2024 1:20 PM EDT Office Visit Sleep Disorders Ctr [facility] [address] [place] [phone] Madai Rousseau DO [address] [place] [address] 03/17/2024 10:40 AM EDT Office Visit Family Medicine [address] [phone] Raul Still MD [address] [place] [address] [place] [address] Health Maintenance Due Date Last Done Comments HIV Screening 1981 Hepatitis B (1 of 3 - 19+ 3-dose series) 1985 Cologuard 12/24/2011 Fecal Occult Blood Test 12/24/2011 Sigmoidoscopy 12/24/2011 Depression Screening 08/23/2021 08/23/2020 GFR 07/09/2024 07/09/2023, 10/23, 08/28/2020, Additional history exists Albumin/Creatinine Ratio 11/10/2024 11/10/2021, 05/2020 Diabetes Screening 07/09/2026 07/09/2023, 0 11/10/2021, 08/28/2020, [...] filedocumented as of this encounter Care Teams Procurement Technician Relationship Specialty Start Date End Date Raul Still MD [address] [place] [address] [place] [phone] PCP - General Family Medicine 10/30/23 documented as of this encounter
--- OUTSIDE RECORDS SUMMARY | 2023-12-18 08:57 | External Medical Summary | Summary of Care ---
Author Name Unknown Organization [facility] Address [address] [facility] [place] [address] Phone [phone] Care Team Providers Care Drying Oven Attendant Name Role Phone Raul Drummond MD Primary Care Provide r Reason for Visit * Reason Comments eRx-Medication Refill Encounter Details Date Type Department Care Team (Late st Contact Info) Description 11/14/2023 Refill Family Medicine [address] [place] [phone] Flo Jackson MD [address] [place] [address] [place] [address] Dyslipidemia, goal LDL below 130; Primary hypertension Allergies No known active allergiesdocumented as of this encounter (statuses as of 11/16/2023) Medications Medication Sig Dispensed Refills Start Date End Date Status Atenolol 25 MG Oral Tablet (Tenormin)Indicat ions:Primary hypertension TAKE 1 TABLET BY MOUTH EVERY DAY IN THE MORNING 90 Tablet 1 07/13/2023 Active Enalapril Maleate 20 MG Oral Tablet (Vasotec)Indicati ons:Primary hypertension TAKE 1 TABLET BY MOUTH EVERY DAY WITH THE 10MG TABS FOR TOTAL DAILY DOSE OF 30MG 90 Tablet 1 07/13/2023 Active Baclofen 20 MG Oral TabletIndications :Acute bilateral low back pain without sciatica,Pain of right lower leg Take 1 Tablet by mouth in the morning and 1 Tablet at noon and 1 Tablet before bedtime. 30 Tablet 1 10/30/2023 Active predniSONE 20 MG Oral Tablet (Deltasone)Indica tions:Pain of right lower leg 1 tab 3 times a day for 3 days, then 1 tab 2 times a day for 3 days, then 1 tab daily for 3 days 18 Tablet 0 10/30/2023 Active Naproxen 500 MG Oral Tablet (Naprosyn)Indicat ions:Sprain of ligament of lumbosacral joint, sequela,DDD (degenerative disc disease), lumbosacral Take 1 Tablet by mouth 2 times a day as needed for Pain. 180 Tablet 1 10/30/2023 Active methylPREDNISolon e 4 MG Oral Tablet Therapy Pack (Medrol Dosepack) follow package directions 21 Tablet 0 11/05/2023 Active Simvastatin 20 MG Oral Tablet (Zocor)Indication s:Dyslipidemia, goal LDL below 130 TAKE 1 TABLET BY MOUTH EVERYDAY AT BEDTIME 90 Tablet 2 11/16/2023 Active Enalapril Maleate 10 MG Oral Tablet (Vasotec)Indicati ons:Primary hypertension TAKE 1 TABLET BY MOUTH EVERY DAY IN THE MORNING 90 Tablet 2 11/16/2023 Active Chlorthalidone 25 MG Oral Tablet (Hygroton)Indicat ions:Primary hypertension TAKE 1 TABLET BY MOUTH EVERY DAY IN THE MORNING 90 Tablet 2 11/16/2023 Active Chlorthalidone 25 MG Oral Tablet (Hygroton)Indicat ions:Primary hypertension TAKE ONE TABLET BY MOUTH DAILY IN THE MORNING 90 Tablet 1 07/13/2023 4 Discontinued Enalapril Maleate 10 MG Oral Tablet (Vasotec)Indicati ons:Primary hypertension Take 1 Tablet by mouth in the morning. 90 Tablet 1 07/13/2023 4 Discontinued Simvastatin 20 MG Oral Tablet (Zocor)Indication s:Dyslipidemia, goal LDL below 130 TAKE 1 TABLET BY MOUTH EVERYDAY AT BEDTIME 90 Tablet 1 07/13/2023 4 Discontinued documented as of this encounter (statuses as of 11/16/2023) Active Problems Problem Noted Date Diagnosed Date BMI 35.0-35.9,adult 07/13/2023 Obstructive sleep apnea 12/09/2018 Overview: Dr Bell Dyslipidemia, goal LDL below 130 12/31/2010 Primary hypertension 08/08/2009 Overview: Modified per HTN protocol #16. LUMBAGO 03/16/2006 ADVANCE DIRECTIVE INFORMATION 02/26/2006 Overview: No, Advance Directive brochure given to patient at prior appointment. DDD (degenerative disc disease), lumbosacral documented as of this encounter (statuses as of 11/16/2023) Resolved Problems Problem Noted Date Diagnosed Date Resolved Date Acute bilateral low back kaity n without sciatica 08/05/2016 08/06/2017 BMI 34.0-34.9,adult 04/21/2013 08/23/20 19 Dyslipidemia, goal to be determined 12/16/2004 12/31/2010 HYPERTENSION NOS 08/08/2009 Overview: Modified per HTN protocol #16. Allergic rhinitis 08/06/2017 documented as of this encounter (statuses as of 11/16/2023) Immunizations Name Administration Dates Next Due COVID-19 [...] on file documented as of this encounter Miscellaneous Notes * Telephone Encounter - Raul Drummond MD - 11/16/2023 8:36 AM EST Signed Prescriptions: Disp Refills Simvastatin 20 MG Oral Tablet (Zocor) 90 Tab*2 Sig: TAKE 1 TABLET BY MOUTH EVERYDAY AT BEDTIME Authorizing Provider: RAUL DRUMMOND Enalapril Maleate 10 MG Oral Tablet (Vasot*90 Tab*2 Sig: TAKE 1 TABLET BY MOUTH EVERY DAY IN THE MORNING Authorizing Provider: RAUL DRUMMOND Chlorthalidone 25 MG Oral Tablet (Hygroton )90 Tab*2 Sig: TAKE 1 TABLET BY MOUTH EVERY DAY IN THE MORNING Authorizing Provider: RAUL DRUMMOND * Telephone Encounter - Priscila Bazzi [facility] - 11/16/2023 7:47 AM ESTPending Prescriptions: Disp Refills Simvastatin 20 MG Oral Tablet (Zocor) 90 Tab*2 Sig: TAKE 1 TABLET BY MOUTH EVERYDAY AT BEDTIME Enalapril Maleate 10 MG Oral Tablet (Vasot*90 Tab*2 Sig: TAKE 1 TABLET BY MOUTH EVERY DAY IN THE MORNING Chlorthalidone 25 MG Oral Tablet (Hygroton)90 Tab*2 Sig: TAKE 1 TABLET BY MOUTH EVERY DAY IN THE MORNING * Telephone Encounter - Priscila Bazzi [facility] - 11/16/2023 7:47 AM EST Not yet approved by PCP. Please approve if appropriate. Pending Prescriptions: Disp Refills Simvastatin 20 MG Oral Tablet (Zocor) [Ph*90 Tab*2 Sig: TAKE 1 TABLET BY MOUTH EVERYDAY AT BEDTIME Enalapril Maleate 10 MG Oral Tablet (Vaso*90 Tab*2 Sig: TAKE 1 TABLET BY MOUTH EVERY DAY IN THE MORNING Chlorthalidone 25 MG Oral Tablet (Hygroto*90 Tab*2 Sig: TAKE 1 TABLET BY MOUTH EVERY DAY IN THE MORNING Thank you, Priscila Bazzi [facility] Clinical Pharmacist [facility] 11/16/23 7:47 AM [phone] * Telephone Encounter - Priscila Bazzi [facility] - 11/16/2023 7:46 AM EST Did you pend patient's preferred pharmacy and medication before forwarding?yes Pharmacy: [id number] Pending Prescriptions: Disp Refills Simvastatin 20 MG Oral Tablet (Zocor) [Ph*90 Tab*2 Sig: TAKE 1 TABLET BY MOUTH EVERYDAY AT BEDTIME Enalapril Maleate 10 MG Oral Tablet (Vaso*90 Tab*2 Sig: TAKE 1 TABLET BY MOUTH EVERY DAY IN THE MORNING Chlorthalidone 25 MG Oral Tablet (Hygroto*90 Tab*2 Sig: TAKE 1 TABLET BY MOUTH EVERY DAY IN THE MORNING Last Visit: 10/30/2023 (in office), Visit date not found (telemedicine) Next Visit: 01/13/2024 If no future appointments scheduled, and last appointment is greater than a year ago, please schedule patient for a follow-up appointment Last date the medication was ordered: 07/13/2023 Is this request for a controlled substance?No Urine Drug Screen:No results found for this or any previous visit. Patient Phone Numbers Labs: Lab Results Component Value Date/Time CREAT 1.0 07/09/2023 01:15 PM CREAT 1.01 11/10/2021 12:00 AM CREAT 1.1 08/23/2019 09:47 AM CREAT 0.9 06/01/1996 04:00 PM POTASSIUM 4.6 07/09/2023 01:15 PM POTASSIUM 3.9 11/10/2021 12:00 AM POTASSIUM 4.4 08/23/2019 09:47 AM POTASSIUM 4.3 06/01/1996 04:00 PM TSH 1.30 03/22/1998 12:43 PM LDLCALC 70 07/09/2023 01:15 PM LDLCALC 85.40 11/10/2021 12:00 AM LDLDIRECT 71 08/28/2020 12:00 AM LDLDIRECT NOT APPLICABLE 08/23/2019 09:47 AM ALT 31 07/09/2023 01:15 PM ALT 41 04/21/2014 10:07 AM ALT 56 06/01/1996 04:00 PM HGBA1C 6.0 03/25/2007 07:47 PM documented in this encounter Plan of Treatment Upcoming Encounters Date Type Department Care Team (Late st Contact Info) Description 12/11/2023 8:00 AM EDT Imaging Radiology [address] [place] [address] 12/11/2023 8:45 AM EDT Imaging Radiology [address] [place] [address] 12/17/2023 2:00 PM EDT Office Visit Orthopaedics [address] [phone] Wilver Bonds MD [address] [place] [address] 01/13/2024 4:20 PM EDT Office Visit Family Medicine [address] [place] [phone] Raul Drummond MD [address] [place] [address] [place] [address] 03/15/2024 1:20 PM EDT Office Visit Sleep Disorders Ctr [facility] [address] [place] [phone] Madai Rousseau DO [address] [place] [address] Health Maintenance Due Date Last Done Comments [...] as of this encounter Visit Diagnoses Diagnosis Dyslipidemia, goal LDL below 130 Other and unspecified hyperlipidemia Primary hypertension Unspecified essential hypertension documented in this encounter Care Teams Drying Oven Attendant Relationship Specialty Start Date End Date Raul Drummond MD [address] [place] [address] [place] [phone] PCP - General Family Medicine 10/30/23 documented as of this encounter
--- OUTSIDE RECORDS SUMMARY | 2023-12-18 08:57 | External Medical Summary | Summary of Care ---
Author Name Unknown Organization [facility] Address [address] [facility] [place] [address] Phone [phone] Care Team Providers Care Crew Member Name Role Phone Raul Still MD Primary Care Provide r Reason for Referral * Precert (Within 10 days (routine)) - Pending Review Specialty Diagnoses / Procedures Referred By Contac t Referred To Contact Radiology Diagnoses Acute pain of right knee Pain of right thigh Procedures MRI FEMUR NO JOINT RIGHT WITHOUT IV CONTRAST Wilver Bonds MD [address] [place] [address] Referral ID Status Reason Start Date Expiration Date V isits Requested Visits Authorized [id number] Pending Review 11/05/2023 999 999 * Precert (Within 10 days (routine)) - Pending Review Specialty Diagnoses / Procedures Referred By Contac t Referred To Contact Radiology Diagnoses Acute pain of right knee Pain of right thigh Procedures MRI KNEE RIGHT WO CONTRAST Wilver Bonds MD [address] [place] [address] Referral ID Status Reason Start Date Expiration Date V isits Requested Visits Authorized [id number] Pending Review 11/05/2023 999 999 Reason for Visit * Reason Comments NEW PATIENT Right leg * Evaluate & Treat - Unlimited Visits (Within 10 days (routine)) - Authorized Specialty Diagnoses / Procedures Referred By Steve t Referred To Contact Orthopaedic Surgery / Orthopedics Diagnoses Pain of right lower leg Pain of right thigh Right leg swelling Dior Smith MD [address] [place] [address] [place] [address] Referral ID Status Reason Start Date Expiration Date Visits Requested Visits Authorized [id number] Authorized Specialty Services Required 10/30/2023 999 999 Encounter Details Date Type Department Care Team (Late st Contact Info) Description 11/05/2023 2:00 PM EST Office Visit Orthopaedics [address] [place] [phone] Wilver Bonds MD [address] [place] [address] Acute pain of right knee*; Knee effusion, right; Pain of right thigh Allergies No known active allergiesdocumented as of this encounter (statuses as of 11/05/2023) Medications Medication Sig Dispensed Refills Start Date End Date Status Atenolol 25 MG Oral Tablet (Tenormin)Indication s:Primary hypertension TAKE 1 TABLET BY MOUTH EVERY DAY IN THE MORNING 90 Tablet 1 07/13/2023 Active Chlorthalidone 25 MG Oral Tablet (Hygroton)Indication s:Primary hypertension TAKE ONE TABLET BY MOUTH DAILY IN THE MORNING 90 Tablet 1 07/13/2023 Active Enalapril Maleate 10 MG Oral Tablet (Vasotec)Indications :Primary hypertension Take 1 Tablet by mouth in the morning. 90 Tablet 1 07/13/2023 Active Enalapril Maleate 20 MG Oral Tablet (Vasotec)Indications :Primary hypertension TAKE 1 TABLET BY MOUTH EVERY DAY WITH THE 10MG TABS FOR TOTAL DAILY DOSE OF 30MG 90 Tablet 1 07/13/2023 Active Simvastatin 20 MG Oral Tablet (Zocor)Indications:D yslipidemia, goal LDL below 130 TAKE 1 TABLET BY MOUTH EVERYDAY AT BEDTIME 90 Tablet 1 07/13/2023 Active Baclofen 20 MG Oral TabletIndications:Ac tayler bilateral low back pain without sciatica,Pain of [...] package directions 21 Tablet 0 11/05/2023 Active documented as of this encounter (statuses as of 11/05/2023) Active Problems Problem Noted Date Diagnosed Date BMI 35.0-35.9,adult 07/13/2023 Obstructive sleep apnea 12/09/2018 Overview: Dr Bell Dyslipidemia, goal LDL below 130 12/31/2010 Primary hypertension 08/08/2009 Overview: Modified per HTN protocol #16. LUMBAGO 03/16/2006 ADVANCE DIRECTIVE INFORMATION 02/26/2006 Overview: No, Advance Directive brochure given to patient at prior appointment. DDD (degenerative disc disease), lumbosacral documented as of this encounter (statuses as of 11/05/2023) Resolved Problems Problem Noted Date Diagnosed Date Resolved Date Acute bilateral low back kaity n without sciatica 08/05/2016 08/06/2017 BMI 34.0-34.9,adult 04/21/2013 08/23/20 19 Dyslipidemia, goal to be determined 12/16/2004 12/31/2010 HYPERTENSION NOS 08/08/2009 Overview: Modified per HTN protocol #16. Allergic rhinitis 08/06/2017 documented as of this encounter (statuses as of 11/05/2023) Immunizations Name Administration Dates Next Due COVID-19 [...] on file documented as of this encounter Progress Notes * Wilver Bonds MD - 11/05/2023 2:00 PM EST Rogelio Barrera [phone] Rogelio Barrera is a 57 year old male [facility] right knee [facility]/pain. Consult requested by Dior Smith MD. Rogelio Barrera is here unaccompanied Quality: reviewed and agree with Nursing Notes for HPI elements History: History - Was shoveling snow on 10/09/23. Pain in the right groin that radiated down the whole leg. Able to bear weight now. Pain when getting in and out of his vehicle No numbness or tingling. Pain above knee at present. Denies sx, injury, PT, braces, or injections. Venous duplex RLE -10/30/23 US RT thigh extemity- 11/02/23 ROS: ROS per HPI otherwise non-contributory Past Medical History: Diagnosis Date Allergic rhinitis BMI 35.0-35.9,adult DDD (degenerative disc disease), lumbosacral Dyslipidemia, goal LDL below 130 Encounter for hepatitis C screening test for low risk patient 11/10/2021 negative Essential hypertension with goal blood pressure less than 140/90 Obstructive sleep apnea 12/09/2018 Dr Bell Family History Problem Relation Age of Onset Cancer Mother panreatic Heart Disorder Father Hypertension Father Cancer Grandmother (Maternal) stomach Social History Socioeconomic History Marital status: Single Spouse name: Not on file Number of children: Not on file Years of education: Not on file Highest education level: Not on file Occupational History Not on file Tobacco Use Smoking status: Never Smokeless tobacco: Never Vaping Use Vaping Use: Never used Substance and Sexual Activity Alcohol use: No Drug use: No Sexual activity: Not on file Other Topics Concern Not on file Social History Narrative Not on file Social Determinants of Health Financial Resource Strain: Not on file Food Insecurity: No Food Insecurity (10/29/2023) Hunger Vital Sign Worried About Running Out of Food in the Last Year: Never true Ran Out of Food in the Last Year: Never true Transportation Needs: Not on file Physical Activity: Not on file Stress: Not on file Social Connections: Not on file Intimate Partner Violence: Not on file Housing Stability: Not on file Physical Exam Constitutional: Generally well-nourished and in no acute distress Psychiatric: Mood and Affect normal Eyes: EOMI Respiratory: Normal respiratory effort with regular rate and rhythm Knee Exam, Bilateral Inspection/palpation: Positive swelling the supra patellar region, initially suspect she was for effusion, however also has palpable enlargement more medial and proximal than typically expected for aknee effusion. No warmth. No erythema noted Mild medial joint tenderness ROM: Flexion/Neutral/Extension: L - 120/0/0, R - 120/0/0 Fullness with full flexion Strength: SLR: Extension: L - 5/5, R - 5/5 Flexion: L - 5/5, R - 5/5 Quadriceps Tone: Good and Equal Bilateral Hip exam, bilateral: passive internal and external rotation reproduces no pain. Full ROM B/L Radiology (I have personally reviewed the following films): 11/02/2023: Nonvascular diagnostic ultrasound of the lower extremity performed through musculoskeletal Radiology Sonographic evaluation was focused on the anterior aspect of the right distal thigh. There is a large heterogeneous collection in the deep soft tissues of the distal thigh, between the femur and overlying quadriceps muscles and tendon. The collection is relatively firm but ballotable, and there is no internal vascularity on Doppler imaging. It measures approximately 2.4 cm in thickness, 16.5 cm in craniocaudal dimension, and 17.3 cm in width. At the level of the quadriceps tendon and patella, the collection appears to be located in the suprapatellar joint recess. However, it extends more proximally than expected for a joint effusion. Of note, the location of the collection is not consistent with a Dunn-Paresh lesion (which wouldbe located between the subcutaneous tissue and superficial muscle fascia, not between the muscle and bone as in this case). The distal quadriceps tendon itself is intact, and there is no discrete quadriceps muscle tear. IMPRESSION IMPRESSION 1. Large complex fluid collection in the distal anterior aspect of the right thigh, which appears to communicate with the knee joint capsule. This may represent a large joint effusion with synovitis/synovial thickening, hematoma, or both. If symptoms persist and if clinically indicated, CT scan or MRI could be considered for further characterization. 2. No evidence of quadriceps muscle or tendon tear. 10/30/2023: Venous duplex right lower extremity IMPRESSION 1. No DVT identified in the right lower extremity. 2. Apparent subcutaneous collection in the distal right thigh in the area of pain is possibly an intramuscular hematoma, possibly Dunn-Paresh lesion Assessment and Plan: 1) R knee/thigh pain Etiology not certain. [place] with [facility] finding of: Large complex fluid collection in the distal anterior aspect of the right thigh, which appears to communicate with the knee joint capsule. This may represent a large joint effusion with synovitis/synovial thickening, hematoma, or both. Considered bedside aspiration, however, upon limited evaluation patient did not have a typical hypoechoic effusion that I felt would be amenable to aspiration. And had complex fluid collection greatest in the mid to distal thigh noted primarily medially. Etiology uncertain agree with differential listed from [facility] [place] Serum labs ordered today including: Lyme, uric acid, ESR, CRP Patient has been on prednisone pills for about 6 days and therefore I did not think a CBC would be of significant benefit MRI of the knee as well as MRI of the femur ordered In office follow-up at least 3 days after those MRIs Wilver Bonds MD Primary Care Sports Medicine Orthopaedics [address] [phone] documented in this encounter Nursing Notes * Lynn Lewis RN - 11/05/2023 2:05 PM EST Referred by for right leg.Was shoveling snow on 10/09/23. Pain in the right groin that radiated down the whole leg. Able to bear weight now. Pain when getting in and out of his vehicle No numbness or tingling. Pain above knee at present. Denies sx, injury, PT, braces, or injections. Venousduplex RLE -10/30/23 US RT thigh extemity- 11/02/23 Lynn Lewis RN documented in this encounter Plan of Treatment Upcoming Encounters Date Type Department Care Team (Late st Contact Info) Description 12/11/2023 8:00 AM EDT Imaging Radiology [address] [place] [phone] 12/11/2023 8:45 AM EDT Imaging Radiology [address] [place] [address] 12/17/2023 2:00 PM EDT Office Visit Orthopaedics [address] [phone] Wilver Bonds MD [address] [place] [address] 01/13/2024 4:20 PM EDT Office Visit Family Medicine [address] [place] [phone] Raul Still MD [address] [place] [address] [place] [address] 03/15/2024 1:20 PM EDT Office Visit [facility] Disorders Ctr [facility] [address] [place] [phone] Madai Rousseau DO [address] [place] [address] Pending Results Name Type Priority Associated Diagnoses Date/Time XR KNEE 4 OR MORE VIEWS Medical Imaging Routine Acute pain of right knee 11/05/2023 2:46 PM EST LYME DISEASE ANTIBODY SCREEN WITH REFLEX TO CONFIRMATION Lab Routine Acute pain of right knee Knee effusion, right 11/05/2023 3:34 PM EST URIC ACID Lab Routine Knee effusion, right 11/05/2023 3:34 PM EST CRP (INFLAMMATORY MARKER) Lab Routine Knee effusion, right 11/05/2023 3:34 PM EST ERYTHROCYTE SEDIMENTATION RATE (ESR) Lab Routine Knee effusion, right 11/05/2023 3:34 PM EST Scheduled Orders Name Type Priority Associated Diagnoses Orde r Schedule LYME DISEASE ANTIBODY SCREEN WITH REFLEX TO CONFIRMATION Lab Routine Acute pain of right knee Knee effusion, right Expected: 11/05/2023, Expires: 11/05/2024 URIC ACID Lab Routine Knee effusion, right Expected: 11/05/2023, Expires: 11/05/2024 CRP (INFLAMMATORY MARKER) Lab Routine Knee effusion, right Expected: 11/05/2023, Expires: 11/05/2024 ERYTHROCYTE SEDIMENTATION RATE (ESR) Lab Routine Knee effusion, right Expected: 11/05/2023, Expires: 11/05/2024 MRI KNEE RIGHT WO CONTRAST Medical Imaging Routine Acute pain of right knee Pain of right thigh Expected: 11/05/2023, Expires: 12/03/2024 MRI FEMUR NO JOINT RIGHT WITHOUT IV CONTRAST Medical Imaging Routine Acute pain of right knee Pain of right thigh Expected: 11/05/2023, Expires: 12/03/2024 Health Maintenance Due Date Last Done Comments Hepatitis B (1 of 3 - 3-dose series) 1966 HIV Screening 1981 Cologuard 12/24/2011 Fecal Occult Blood Test 12/24/2011 [...] as of this encounter Visit Diagnoses Diagnosis Acute pain of right knee- Primary Knee effusion, right Effusion of lower leg joint Pain of right thigh Pain in limb documented in this encounter Care Teams Crew Member Relationship Specialty Start Date End Date Raul Still MD [address] [place] [address] [place] [address] PCP - General Family Medicine 10/30/23 documented as of this encounter
--- OUTSIDE RECORDS SUMMARY | 2023-12-18 08:57 | External Medical Summary ---
Author Name Unknown Address Unknown Organization [facility] - [address] [facility] [address] [place] [address] Laboratory Report Ordering Provider Test Date Status TERE PENA 12/16/2023 16:38:05 Final Observation Date Value Abnormality Reference (Units ) Status PSA 12/16/2023 16:38:05 0.49 <3.10 (ng/ mL) Final Performing Location [facility] - [address] [place] [address]
--- OUTSIDE RECORDS SUMMARY | 2023-12-18 08:57 | External Medical Summary ---
Author Name Unknown Address Unknown Organization [facility] - [address] [place] [address] Laboratory Report Ordering Provider Test Date Status TERE PENA 12/16/2023 16:38:05 Final Observation Date Value Abnormality Reference (Units ) Status LDH 12/16/2023 16:38:05 255 Above high normal <= 250 (U/L) Final Result may be falsely elevat ed due to hemolysis. Performing Location [facility] - [address] [place] [address]
--- OUTSIDE RECORDS SUMMARY | 2023-12-18 08:57 | External Medical Summary | Summary of Care ---
Author Name Unknown Organization [facility] Address [address] [facility] [address] Phone [phone] Care Team Providers Care Wheel And Caster Repairer Name Role Phone Raul Still MD Primary Care Provide r Reason for Referral * Evaluate & Treat - Unlimited Visits (Within 3 days (urgent)) - Authorized Specialty Diagnoses / Procedures Referred By Steve rome Referred To Contact Orthopaedic Surgery / Orthopedics Diagnoses Pain of right thigh Mass of leg, right Wilver Bonds MD [address] [facility] [address] Referral ID Status Reason Start Date Expiration Date Visits Requested Visits Authorized [id number] Authorized Specialty Services Required 12/11/2023 999 999 Question Answer Referral Priority Within 3 days (urgent) Where should this appointment be scheduled? [facility] What body part is the patient being seen for? Thigh/Knee What condition is the patient being seen for? Arthritis including related infection Comments Referred to Dr. Sheridan (Orthopaedic Oncology) Imaging features favor a diagnosis of distal femoral osteomyelitis, with cortical disruption and extension into the prefemoral fat pad, myositis of the distal quadriceps and proximal calf muscles, a small intramuscular abscess in the medial gastrocnemius muscle, and probable septic arthritis. A neoplastic process is considered less likely due to the presence of preserved patchy areas of T1 marrow signal intensity, large geographic areas of nonenhancing marrow, apparent spilling of liquid marrow into the prefemoral soft tissue, and lack of a discrete soft tissue mass. However, neoplasm is not entirely excluded, and biopsy may be required for definitive diagnosis (particularly if bacterial cultures are unable to be obtained). Reason for Visit * Reason Comments Pain Encounter Details Date Type Department Care Team (Late st Contact Info) Description 12/11/2023 2:45 PM EDT Telemedicine Orthopaedics [facility] [address] [place] [address] Wilvre Bonds MD [address] [place] [address] Pain of right thigh*; Mass of leg, right Allergies No known active allergiesdocumented as of this encounter (statuses as of 12/11/2023) Medications Medication Sig Dispensed Refills Start Date [...] 07/13/2023 Active Baclofen 20 MG Oral TabletIndications:Ac atka bilateral low back pain without sciatica,Pain of [...] as of this encounter (statuses as of 12/11/2023) Active Problems Problem Noted Date Diagnosed Date BMI 35.0-35.9,adult 07/13/2023 Obstructive sleep apnea 12/09/2018 Overview: Dr Bell Dyslipidemia, goal LDL below 130 12/31/2010 Primary hypertension 08/08/2009 Overview: Modified per HTN protocol #16. LUMBAGO 03/16/2006 ADVANCE DIRECTIVE INFORMATION 02/26/2006 Overview: No, Advance Directive brochure given to patient at prior appointment. DDD (degenerative disc disease), lumbosacral documented as of this encounter (statuses as of 12/11/2023) Resolved Problems Problem Noted Date Diagnosed Date Resolved Date Acute bilateral low back kaiyt n without sciatica 08/05/2016 08/06/2017 BMI 34.0-34.9,adult 04/21/2013 08/23/20 19 Dyslipidemia, goal to be determined 12/16/2004 12/31/2010 HYPERTENSION NOS 08/08/2009 Overview: Modified per HTN protocol #16. Allergic rhinitis 08/06/2017 documented as of this encounter (statuses as of 12/11/2023) Immunizations Name Administration Dates Next Due COVID-19 mRNA, LNP-s, No Pre serve, 2-Dose Series ([employer]) 12/20/2021,05/21/2021,10/02/2020,2019 COVID-19, MRNA-LNP, 23-24, P F, 30 MCG/0.3 mL, 12 YRS AND ABOVE, IM ([employer]Comir[employer]) 07/13/2023 Seasonal Influenza, PF, 6 M & [...] Progress Notes * Wilver Bonds MD - 12/11/2023 3:25 PM EDT Rogelio Vallejo Bruce [phone] Rogelio Barrera is a 57 year old male who presents for follow-up to [facility] for right knee injury/pain. I saw him originally for this on 11/05/2023 Telephone visit done today rather than in office visit. Rogelio Barrera is here unaccompanied Quality: reviewed and agree with Nursing Notes for HPI elements History: History on 11/05/2023 - Was shoveling snow on 10/09/23. Pain in the right groin that radiated down the whole leg. Able to bear weight now. Pain when getting in and out of his vehicle No numbness or tingling. Pain above knee at present. Denies sx, injury, PT, braces, or injections. Venous duplex RLE -10/30/23 US RT thigh extemity- 11/02/23 Since that visit: MRI was obtained today and patient was scheduled for urgent telephone encounter ROS: ROS per HPI otherwise non-contributory Past [...] on file Housing Stability: Not on file Radiology (I have personally reviewed the following films): 12/11/2023: MRI of the knee and femur with and without IV contrast IMPRESSION 1. Imaging features favor a diagnosis of distal femoral osteomyelitis, with cortical disruption andextension into the prefemoral fat pad, myositis of the distal quadriceps and proximal calf muscles,a small intramuscular abscess in the medial gastrocnemius muscle, and probable septic arthritis. A neoplastic process is considered less likely due to the presence of preserved patchy areas of T1 marrow signal intensity, large geographic areas of nonenhancing marrow, apparent spilling of liquid marrow into the prefemoral soft tissue, and lack of a discrete soft tissue mass. However, neoplasm is not entirely excluded, and biopsy may be required for definitive diagnosis (particularly if bacterial cultures are unable to be obtained). 2. Complex degenerative tearing of the medial meniscus and moderate cartilage loss in the medial compartment. 11/02/2023: Nonvascular diagnostic ultrasound of the lower [...] Assessment and Plan: 1) R knee/thigh pain MRI as noted above shows concern for infectious etiology including significant osteomyelitis, a small abscess within the gastrocnemius, potential septic arthritis However, neoplastic process was also not entirely excluded Recommended bone biopsy Case discussed with interpreting radiologist Dr. Zamorano ([facility]) Case also discussed with Dr. Coppola (orthopaedic surgery) 3 day urgent placed to Dr. Sheridan (Orthopaedic Oncology), however, visit may end up needing reroutedto our trauma team Patient currently clinically stable (has noted occasional chills but denies fevers, nausea vomiting, sweats) but I recommended using crutches or a walker to help with immobilization based on discussions with Dr. Coppola. crutches ordered to be sent to the patient's DME facility Etiology uncertain agree with differential listed from [facility] Serum labs ordered today including: Lyme, uric acid, ESR, CRP Does show elevated ESR and CRP. Lyme and uric acid were unremarkable Patient had been on prednisone pills for about 6 days and therefore I did not think a CBC would be of significant benefit MRI of the knee as well as MRI of the femur ordered Patient's MRI was obtained about a month after I ordered it. I question if the patient know why it took this long he reported that was the soonest we are able to schedule him After connecting to the patient via telephone, the patient was identified by name and date of . Patient was then informed that this was a telephone call only visit. The patient agreed to participate. Visit Disposition: Routine follow-up Total call duration was 15 minutes. Wilver Bonds MD Primary Care Sports Medicine Orthopaedics [address] [phone] documented in this encounter Plan of Treatment Upcoming Encounters Date Type Department Care Team (Late st Contact Info) Description 12/17/2023 2:00 PM EDT Office Visit Orthopaedics [address] [phone] Wilver Bonds MD [address] [place] [address] 03/15/2024 1:20 PM EDT Office Visit Sleep Disorders Ctr [facility] [address] [place] [phone] Madai Rousseau, [address] [place] [address] 03/17/2024 10:40 AM EDT Office Visit Family Medicine [address] [place] [phone] Raul Still MD [address] [place] [address] [place] [address] Scheduled Referrals Name Type Priority Associated Diagnoses Order Schedule ORTHOPAEDICS REFERRAL OP Referral Within 3 days (urgent) Pain of right thigh Mass of leg, right Ordered: 12/11/2023 Health Maintenance Due Date Last Done Comments [...] as of this encounter Visit Diagnoses Diagnosis Pain of right thigh- Primary Pain in limb Mass of leg, right documented in this encounter Care Teams Wheel And Caster Repairer Relationship Specialty Start Date End Date Raul Still MD [address] [place] [address] [place] [phone] PCP - General Family Medicine 10/30/23 documented as of this encounter
--- OUTSIDE RECORDS SUMMARY | 2023-12-18 08:57 | External Medical Summary | Summary of Care ---
Author Name Unknown Organization [facility] Address [address] [facility] [place] [address] Phone [phone] Care Team Providers Care Stationary Fireman Name Role Phone Raul Still MD Primary [...] 07/13/2023 Active Baclofen 20 MG Oral TabletIndications:Ac barrow bilateral low back pain without sciatica,Pain of [...] 12/16/2023 2:30 PM EDT Office Visit Orthopaedics, [place] [address] [place] [address] Sebas Sheridan MD [address] [place] [address] 12/17/2023 2:00 PM EDT Office Visit Orthopaedics [address] [phone] Wilver Bonds MD [address] [place] [address] 03/15/2024 1:20 PM EDT Office Visit Sleep Disorders Ctr [facility] [address] [place] [phone] Madai Rousseau DO [address] [place] [address] 03/17/2024 10:40 AM EDT Office Visit Family Medicine [address] [phone] Raul Still MD [address] [place] [address] [place] [address] Health Maintenance Due Date Last Done Comments [...] filedocumented as of this encounter Care Teams Stationary Fireman Relationship Specialty Start Date End Date Raul Still MD [address] [place] [address] [place] [phone] PCP - General Family Medicine 10/30/23 documented as of this encounter
--- OUTSIDE RECORDS SUMMARY | 2023-12-18 08:57 | External Medical Summary | Summary of Care ---
Author Name Unknown Organization [facility] Address [address] [facility] [address] Phone [phone] Care Team Providers Care Licensed Vocational Nurse Name Role Phone Raul Still MD Primary Care Provide r Reason for Visit * Reason Onset Date Comments Order Request 12/11/2023 Encounter Details Date Type Department Care Team (Late st Contact Info) Description 12/11/2023 Telephone Orthopaedics [facility] [address] [place] [address] iWlver Bonds MD [address] [place] [address] Order Request Allergies No known active allergiesdocumented as of this encounter (statuses as of 12/12/2023) Medications Medication Sig Dispensed Refills Start Date [...] 07/13/2023 Active Baclofen 20 MG Oral TabletIndications:Ac [place] bilateral low back pain without sciatica,Pain of [...] as of this encounter (statuses as of 12/12/2023) Active Problems Problem Noted Date Diagnosed Date BMI 35.0-35.9,adult 07/13/2023 Obstructive sleep apnea 12/09/2018 Overview: Dr Bell Dyslipidemia, goal LDL below 130 12/31/2010 Primary hypertension 08/08/2009 Overview: Modified per HTN protocol #16. LUMBAGO 03/16/2006 ADVANCE DIRECTIVE INFORMATION 02/26/2006 Overview: No, Advance Directive brochure given to patient at prior appointment. DDD (degenerative disc disease), lumbosacral documented as of this encounter (statuses as of 12/12/2023) Resolved Problems Problem Noted Date Diagnosed Date Resolved Date Acute bilateral low back kaity n without sciatica 08/05/2016 08/06/2017 BMI 34.0-34.9,adult 04/21/2013 08/23/20 19 Dyslipidemia, goal to be determined 12/16/2004 12/31/2010 HYPERTENSION NOS 08/08/2009 Overview: Modified per HTN protocol #16. Allergic rhinitis 08/06/2017 documented as of this encounter (statuses as of 12/12/2023) Immunizations Name Administration Dates Next Due COVID-19 mRNA, LNP-s, No Pre serve, 2-Dose Series ([employer]) 12/20/2021,05/21/2021,10/02/2020,2019 COVID-19, MRNA-LNP, 23-24, P F, 30 MCG/0.3 mL, 12 YRS AND ABOVE, IM ([employer]) 07/13/2023 Seasonal Influenza, PF, 6 M & [...] encounter Miscellaneous Notes * Telephone Encounter - Joelle Escalante LPN - 12/12/2023 9:44 AM EDT Successfully faxed 10 pages to [employer] for RX of crutches written by Dr Bonds yesterday. [phone]. Joelle Torres LPN * Telephone Encounter - Guerita Simmons OSA - 12/11/2023 3:46 PM EDT Alison Ware from [facility] is calling. Dr. Bonds wrote for pt to get crutches and since he has GHPit has to go through [facility] first. He will need to send the script to [employer] who would then reach out to [facility]. [employer]'s fax is [phone] Thank you. documented in this encounter Plan of Treatment Upcoming Encounters Date Type Department Care Team (Late st Contact Info) Description 12/17/2023 2:00 PM EDT Office Visit Orthopaedics [address] [phone] Wilver Bonds MD [address] [place] [address] 03/15/2024 1:20 PM EDT Office Visit Sleep Disorders Ctr [facility] [address] [phone] Madai Rousseau DO [address] [address] 03/17/2024 10:40 AM EDT Office Visit Family Medicine [address] [place] [phone] Raul Still MD [address] [place] [address] [place] [address] Health Maintenance Due Date Last Done Comments [...] filedocumented as of this encounter Care Teams Licensed Vocational Nurse Relationship Specialty Start Date End Date Raul Still MD [address] [place] [address] [place] [address] PCP - General Family Medicine 10/30/23 documented as of this encounter
--- OUTSIDE RECORDS SUMMARY | 2023-12-18 08:57 | External Medical Summary | Summary of Care ---
Author Name Unknown Organization [facility] Address [address] [facility] [address] Phone [phone] Care Team Providers Care Extended Insurance Clerk Name Role Phone Raul Still MD Primary Care Provide r Reason for Visit * Reason Onset Date Comments Appointment 12/11/2023 Encounter Details Date Type Department Care Team (Late st Contact Info) Description 12/11/2023 Telephone Orthopaedics [facility] [address] [place] [address] Wilver Bonds MD [address] [place] [address] Appointment Allergies No known active allergiesdocumented as of [...] 07/13/2023 Active Baclofen 20 MG Oral TabletIndications:Ac jena bilateral low back pain without sciatica,Pain of [...] encounter Miscellaneous Notes * Telephone Encounter - Gabriela Cyr OSA - 12/11/2023 3:40 PM EDT Spoke with Dr Bonds and he is trying to reach out to [place] as this referral is a 3 day urgent. documented in this encounter Plan of Treatment Upcoming Encounters Date Type Department Care Team (Late st Contact Info) Description 12/17/2023 2:00 PM EDT Office Visit Orthopaedics [address] [phone] Wilver Bonds MD [address] [place] [address] 03/15/2024 1:20 PM EDT Office Visit Sleep Disorders Ctr [facility] [address] [place] [phone] Madai Rousseau DO [address] [place] [address] 03/17/2024 10:40 AM EDT Office Visit Family Medicine [address] [phone] Raul Still MD [address] [place] [address] [place] [address] Health Maintenance Due Date Last Done Comments [...] filedocumented as of this encounter Care Teams Extended Insurance Clerk Relationship Specialty Start Date End Date Raul Still MD [address] [place] [address] [place] [address] PCP - General Family Medicine 10/30/23 documented as of this encounter
--- OUTSIDE RECORDS SUMMARY | 2023-12-18 08:57 | External Medical Summary ---
Author Name Unknown Address Unknown Organization K01:[facility] [place] [address] [place] [address] Laboratory Report Ordering Provider Test Date Status TERE PENA 12/16/2023 16:38:05 Final Observation Date Value Abnormality Reference (Units ) Status Erythrocyte sedimentation rate by Photometric method 12/16/2023 16:38:05 88 Above high normal <20 (mm/hour) Final Performing Location LABORATORY C - [address] [place] [address]
--- OUTSIDE RECORDS SUMMARY | 2023-12-18 08:57 | External Medical Summary ---
Author Name Unknown Address Unknown Organization K01:[facility] [place] [address] [facility] [place] [place] [address] Laboratory Report Ordering Provider Test Date Status TERE PENA 12/16/2023 16:38:05 Final Observation Date Value Abnormality Reference (Units ) Status BUN 12/16/2023 16:38:05 40 Above high normal 6-20 (mg/dL) Final Creatinine 12/16/2023 16:38:05 1.9 Above high normal 0.6-1.2 (mg/dL) Final Glomerular filtration rate/1.73 sq M.predicted [Volume Rate/Area] in Serum, Plasma or Blood by Creatinine-based formula (CKD-EPI) 12/16/2023 16:38:05 41 Below low normal >=60 (mL/min) Final eGFR is calculated based on the CKD-EPI 2020 equation Sodium 12/16/2023 16:38:05 124 Below low normal 135 -146 (mmol/L) Final Potassium 12/16/2023 16:38:05 5.3 Above high normal 3. 5-5.1 (mmol/L) Final Cl 12/16/2023 16:38:05 86 Below low normal 98- 107 (mmol/L) Final CO2 12/16/2023 16:38:05 22 22-32 (mmo l/L) Final Anion gap 12/16/2023 16:38:05 16 Above high normal 7- 15 (mmol/L) Final Glucose 12/16/2023 16:38:05 99 70-120 (mg /dL) Final Albumin 12/16/2023 16:38:05 2.9 Below low normal 3.8 -5.0 (g/dL) Final AST (Aspartate aminotransferase) 12/16/2023 16:38:05 46 10-50 (U/L) Fin al Result may be falsely elevat ed due to hemolysis. Alk Phos 12/16/2023 16:38:05 117 35-130 (U/ L) Final Bilirubin, Total 12/16/2023 16:38:05 0.5 <=1 .2 (mg/dL) Final Calcium 12/16/2023 16:38:05 9.3 8.4-10.2 ( mg/dL) Final Protein 12/16/2023 16:38:05 7.2 6.0-8.3 (g /dL) Final ALT (Alanine aminotransferase) 12/16/2023 16:38:05 67 Above high normal 10-50 (U/L) Final Performing Location [facility] [place] [address] [facility] [address]
--- OUTSIDE RECORDS SUMMARY | 2023-12-18 08:57 | External Medical Summary | Summary of Care ---
Author Name Unknown Organization [facility] Address [address] [facility] [place] [address] Phone [phone] Care Team Providers Care Nut Roaster Helper Name Role Phone Raul Still MD Primary Care Provide r Reason for Visit * Reason Comments Outpatient Testing Encounter Details Date Type Department Care Team (Late st Contact Info) Description 11/05/2023 3:40 PM EST Laboratory Laboratory [address] [place] [phone] [place] [address] Acute pain of right knee; Knee effusion, right Allergies No known active allergiesdocumented as [...] Description 12/11/2023 8:00 AM EDT Imaging Radiology [address] [place] [address] 12/11/2023 8:45 AM EDT Imaging Radiology [address] [place] [address] 12/17/2023 2:00 PM EDT Office Visit Orthopaedics [address] [phone] Wilver Bonds MD [address] [place] [address] 01/13/2024 4:20 PM EDT Office Visit Family Medicine [address] [phone] Raul Still MD [address] [place] [address] [place] [address] 03/15/2024 1:20 PM EDT Office Visit Sleep Disorders Ctr [facility] [address] [place] [phone] Madai Rousseau DO [address] [place] [address] Pending Results Name Type Priority Associated Diagnoses Date /Time LYME DISEASE ANTIBODY SCREEN WITH REFLEX TO CONFIRMATION Lab Routine Acute pain of right knee Knee effusion, right 11/05/2023 3:34 PM EST URIC ACID Lab Routine Knee effusion, right 11/05/2023 3:34 PM EST CRP (INFLAMMATORY MARKER) Lab Routine Knee effusion, right 11/05/2023 3:34 PM EST ERYTHROCYTE SEDIMENTATION RATE (ESR) Lab Routine Knee effusion, right 11/05/2023 3:34 PM EST LYME DISEASE ANTIBODY SCREEN Lab Routine Acute pain of right knee Knee effusion, right 11/05/2023 3:34 PM EST Health Maintenance Due Date Last Done Comments Hepatitis B (1 of 3 - 3-dose series) 1966 HIV Screening 1981 Cologuard 12/24/2011 Fecal Occult Blood Test 12/24/2011 Sigmoidoscopy 12/24/2011 Depression Screening 08/23/2021 08/23/2020 GFR 07/09/2024 07/09/2023, 2 , 08/28/2020, Additional history exists Albumin/Creatinine Ratio 11/10/2024 [...] Visit Diagnoses Diagnosis Acute pain of right knee Knee effusion, right Effusion of lower leg joint documented in this encounter Care Teams Nut Roaster Helper Relationship Specialty Start Date End Date Raul Still MD [address] [place] [address] [place] [phone] PCP - General Family Medicine 10/30/23 documented as of this encounter
--- OUTSIDE RECORDS SUMMARY | 2023-12-18 08:58 | External Medical Summary | Summary of Care ---
Author Name Unknown Organization [facility] Address [address] [facility] [place] [address] Phone [phone] Care Team Providers Care Mds Rn Name Role Phone Flo Jackson MD Primary Care Provider Encounter Details Date Type Department Care Team (Late st Contact Info) Description 10/20/2023 Orders Only Sleep Disorders [facility] [address] [place] [phone] Madai Rousseau DO [address] [place] [address] OFELIA (obstructive sleep apnea)* Allergies No known active allergiesdocumented as of this encounter (statuses as of 10/20/2023) Medications Medication Sig Dispensed Refills Start Date End Date Status Baclofen 20 MG TabletIndications:Acu te bilateral low back pain without sciatica Take 1 Tab by mouth 3 times a day. 30 Tab 1 01/12/2019 Active Naproxen 500 MG Oral Tablet (NAPROSYN)Indications :Sprain of ligament of lumbosacral joint, sequela,DDD (degenerative disc disease), lumbosacral Take 1 Tab by mouth 2 times a day as needed for Pain. 180 Tab 1 08/23/2020 Active Atenolol 25 MG Oral Tablet (Tenormin)Indications :Primary hypertension TAKE 1 TABLET BY MOUTH EVERY DAY IN THE MORNING 90 Tablet 1 07/13/2023 Active Chlorthalidone 25 MG Oral Tablet (Hygroton)Indications :Primary hypertension TAKE ONE TABLET BY MOUTH DAILY IN THE MORNING 90 Tablet 1 07/13/2023 Active Enalapril Maleate 10 MG Oral Tablet (Vasotec)Indications: Primary hypertension Take 1 Tablet by mouth in the morning. 90 Tablet 1 07/13/2023 Active Enalapril Maleate 20 MG Oral Tablet (Vasotec)Indications: Primary hypertension TAKE 1 TABLET BY MOUTH EVERY DAY WITH THE 10MG TABS FOR TOTAL DAILY DOSE OF 30MG 90 Tablet 1 07/13/2023 Active Simvastatin 20 MG Oral Tablet (Zocor)Indications:Dy slipidemia, goal LDL below 130 TAKE 1 TABLET BY MOUTH EVERYDAY AT BEDTIME 90 Tablet 1 07/13/2023 Active documented as of this encounter (statuses as of 10/20/2023) Active Problems Problem Noted Date Diagnosed Date BMI 35.0-35.9,adult 07/13/2023 Obstructive sleep apnea 12/09/2018 Overview: Dr Bell Dyslipidemia, goal LDL below 130 12/31/2010 Primary hypertension 08/08/2009 Overview: Modified per HTN protocol #16. LUMBAGO 03/16/2006 ADVANCE DIRECTIVE INFORMATION 02/26/2006 Overview: No, Advance Directive brochure given to patient at prior appointment. DDD (degenerative disc disease), lumbosacral documented as of this encounter (statuses as of 10/20/2023) Resolved Problems Problem Noted Date Diagnosed Date Resolved Date Acute bilateral low back kaity n without sciatica 08/05/2016 08/06/2017 BMI 34.0-34.9,adult 04/21/2013 08/23/20 19 Dyslipidemia, goal to be determined 12/16/2004 12/31/2010 HYPERTENSION NOS 08/08/2009 Overview: Modified per HTN protocol #16. Allergic rhinitis 08/06/2017 documented as of this encounter (statuses as of 10/20/2023) Immunizations Name Administration Dates Next Due COVID-19 mRNA, LNP-s, No Pre serve, 2-Dose Series (brettapproved) 12/20/2021,05/21/2021,10/02/2020,2019 COVID-19, MRNA-LNP, 23-24, P F, 30 [...] Information Value Date Recorded Sex Assigned at Not on file Gender Identity Not on file Sexual Orientation Not on file Job Start Date Occupation Industry Not on file Not on file Not on file documented as of this encounter Progress Notes * Madai Rousseau DO - 10/20/2023 7:38 AM EST Order rewritten from 09/18/23 documented in this encounter Plan of Treatment Upcoming Encounters Date Type Department Care Team (Late st Contact Info) Description 01/13/2024 4:20 PM EDT Office Visit Family Medicine [address] [place] [phone] Raul Still MD [address] [place] [address] [place] [address] 03/15/2024 1:20 PM EDT Office Visit [facility] Disorders Ctr [facility] [address] [place] [phone] Madai Rousseau, [address] [place] [address] Health Maintenance Due Date Last Done Comments [...] as of this encounter Visit Diagnoses Diagnosis OFELIA (obstructive sleep apnea)- Primary Obstructive sleep apnea (adult) (pediatric) documented in this encounter Care Teams Mds Rn Relationship Specialty Start Date End Date Flo Jackson MD PCP - General Family Medicine 04/25/14 documented as of this encounter
--- OUTSIDE RECORDS SUMMARY | 2023-12-18 08:58 | External Medical Summary | Summary of Care ---
Author Name Unknown Organization [facility] Address [address] [facility] [place] [address] Phone [phone] Care Team Providers Care Grades 6 Through 8 Teacher Name Role Phone Raul Still MD Primary Care Provide r Reason for Visit * Reason Onset Date Comments Test Results 11/02/2023 Unexpected or In determinate Result Encounter Details Date Type Department Care Team (Late st Contact Info) Description 11/02/2023 Telephone Laboratory, [place] [address] [place] [address] Dior Smith MD [address] [place] [address] [place] [address] Test Results (Unexpected or Indeterminate ... Allergies No known active allergiesdocumented as of this encounter (statuses as of 11/02/2023) Medications Medication Sig Dispensed Refills Start Date [...] 10/30/2023 Active predniSONE 20 MG Oral Tablet (Deltasone)Indication s:Pain of right lower leg 1 tab 3 [...] for Pain. 180 Tablet 1 10/30/2023 Active documented as of this encounter (statuses as of 11/02/2023) Active Problems Problem Noted Date Diagnosed Date BMI 35.0-35.9,adult 07/13/2023 Obstructive sleep apnea 12/09/2018 Overview: Dr Bell Dyslipidemia, goal LDL below 130 12/31/2010 Primary hypertension 08/08/2009 Overview: Modified per HTN protocol #16. LUMBAGO 03/16/2006 ADVANCE DIRECTIVE INFORMATION 02/26/2006 Overview: No, Advance Directive brochure given to patient at prior appointment. DDD (degenerative disc disease), lumbosacral documented as of this encounter (statuses as of 11/02/2023) Resolved Problems Problem Noted Date Diagnosed Date Resolved Date Acute bilateral low back kaity n without sciatica 08/05/2016 08/06/2017 BMI 34.0-34.9,adult 04/21/2013 08/23/20 19 Dyslipidemia, goal to be determined 12/16/2004 12/31/2010 HYPERTENSION NOS 08/08/2009 Overview: Modified per HTN protocol #16. Allergic rhinitis 08/06/2017 documented as of this encounter (statuses as of 11/02/2023) Immunizations Name Administration Dates Next Due COVID-19 [...] encounter Miscellaneous Notes * Telephone Encounter - Dior Smith MD - 11/02/2023 3:02 PM EST Noted. Please let patient know that his ultrasound is showing a hematoma (big bruise) in the muscleor possibly a more serious muscle injury. He should keep the orthopedics appointment as scheduled. Is his leg feeling any better? * Telephone Encounter - Merary Pritchard OSA - 11/02/2023 12:12 PM EST Hello- The radiologist discovered an unexpected or indeterminate finding on Rogelio Barrera ([id number]) and asks that you review the following report. IMPRESSION IMPRESSION 1. No DVT identified in the right lower extremity. 2. Apparent subcutaneous collection in the distal right thigh in the area of pain is possibly an intramuscular hematoma, possibly Dunn-Paresh lesion. [facility] Date of Study: 10/30/2023 Please respond to this encounter to acknowledge receipt of this message and take responsibility to ensure this report is reviewed. Thank you, OFELIA Brewer Client Service [facility] documented in this encounter Plan of Treatment Upcoming Encounters Date Type Department Care Team (Late st Contact Info) Description 11/05/2023 2:00 PM EST Office Visit Orthopaedics [address] [phone] Wilver Bonds MD [address] [place] [address] 01/13/2024 4:20 PM EDT Office Visit Family Medicine [address] [phone] Raul Still MD [address] [place] [address] [place] [address] 03/15/2024 1:20 PM EDT Office Visit Sleep Disorders Ctr [facility] [address] [place] [phone] Madai Rousseau, [address] [place] [address] Health Maintenance Due Date Last Done Comments [...] filedocumented as of this encounter Care Teams Grades 6 Through 8 Teacher Relationship Specialty Start Date End Date Raul Still MD [address] [place] [address] [place] [address] PCP - General Family Medicine 10/30/23 documented as of this encounter
--- OUTSIDE RECORDS SUMMARY | 2023-12-18 08:58 | External Medical Summary | Summary of Care ---
Author Name Unknown Organization [facility] Address [address] [facility] [place] [address] Phone [phone] Care Team Providers Care Chronic Specialist Name Role Phone Raul Still MD Primary Care Provide r Reason for Visit * Reason Onset Date Comments Test Results 11/02/2023 Unexpected or In determinate Result Encounter Details Date Type Department Care Team (Late st Contact Info) Description 11/02/2023 Telephone Laboratory, [place] [address] [place] [address] Dior Smith MD [address] [place] [address] [place] [address] Test Results (Unexpected or Indeterminate ... Allergies No known active allergiesdocumented as of this encounter (statuses as of 11/03/2023) Medications Medication Sig Dispensed Refills Start Date [...] as of this encounter (statuses as of 11/03/2023) Active Problems Problem Noted Date Diagnosed Date BMI 35.0-35.9,adult 07/13/2023 Obstructive sleep apnea 12/09/2018 Overview: Dr Bell Dyslipidemia, goal LDL below 130 12/31/2010 Primary hypertension 08/08/2009 Overview: Modified per HTN protocol #16. LUMBAGO 03/16/2006 ADVANCE DIRECTIVE INFORMATION 02/26/2006 Overview: No, Advance Directive brochure given to patient at prior appointment. DDD (degenerative disc disease), lumbosacral documented as of this encounter (statuses as of 11/03/2023) Resolved Problems Problem Noted Date Diagnosed Date Resolved Date Acute bilateral low back kaity n without sciatica 08/05/2016 08/06/2017 BMI 34.0-34.9,adult 04/21/2013 08/23/20 19 Dyslipidemia, goal to be determined 12/16/2004 12/31/2010 HYPERTENSION NOS 08/08/2009 Overview: Modified per HTN protocol #16. Allergic rhinitis 08/06/2017 documented as of this encounter (statuses as of 11/03/2023) Immunizations Name Administration Dates Next Due COVID-19 [...] encounter Miscellaneous Notes * Telephone Encounter - Pili Womack LPN - 11/03/2023 9:02 AM EST Pt aware. * Telephone Encounter - Dior Smith MD [...] unexpected or indeterminate finding on Rogelio Barrera ([id number]) and asks that you review the following report. IMPRESSION IMPRESSION 1. No DVT identified in the right lower extremity. 2. Apparent subcutaneous collection in the distal right thigh in the area of pain is possibly an intramuscular hematoma, possibly Dunn-Paresh lesion. Study Type: VASC DUPLEX VENOUS LE UNILAT Date of Study: 10/30/2023 Please respond to this encounter to acknowledge receipt of this message and take responsibility to ensure this report is reviewed. Thank you, OFELIA Brewer Client Service [facility] [place] documented in this encounter Plan of Treatment Upcoming Encounters Date Type Department Care Team (Late st Contact Info) Description 11/05/2023 2:00 PM EST Office Visit Orthopaedics [address] [phone] Wilver Bonds MD [address] [facility] [place] [address] 01/13/2024 4:20 PM EDT Office Visit Family Medicine [address] [place] [phone] Raul Still MD [address] [place] [address] [place] [address] 03/15/2024 1:20 PM EDT Office Visit Sleep Disorders Ctr [facility] [address] [place] [phone] Madai Rousseau, [address] [place] [address] Health Maintenance Due Date Last Done Comments [...] filedocumented as of this encounter Care Teams Chronic Specialist Relationship Specialty Start Date End Date Raul Still MD [address] [place] [address] [place] [address] PCP - General Family Medicine 10/30/23 documented as of this encounter
--- OUTSIDE RECORDS SUMMARY | 2023-12-18 08:58 | External Medical Summary | Summary of Care ---
Author Name Unknown Organization [facility] Address [address] [facility] [place] [address] Phone [phone] Care Team Providers Care Invertebrate Paleontologist Name Role Phone Raul Still MD Primary Care Provide r Reason for Referral * Evaluate & Treat - Unlimited Visits (Within 10 days (routine)) - Authorized Specialty Diagnoses / Procedures Referred By Steve rome Referred To Contact Orthopaedic Surgery / Orthopedics Diagnoses Pain of right lower leg Pain of right thigh Right leg swelling Dior Smith MD [address] [place] [address] [place] [address] Referral ID Status Reason Start Date Expiration Date Visits Requested Visits Authorized [id number] Authorized Specialty Services Required 10/30/[phone] Question Answer Referral Priority Within 10 days (routine) Where should this appointment be scheduled? [facility] What body part is the patient being seen for? Thigh/Knee What condition is the patient being seen for? Sprain/Strain/Tear/Other Comments ?quadriceps rupture of right leg Reason for Visit * Reason Comments Acute Encounter Details Date Type Department Care Team (Late st Contact Info) Description 10/30/2023 9:40 AM EST Office Visit Family Medicine [address] [place] [phone] Dior Smith MD [address] [place] [address] [place] [address] Pain of right lower leg*; Acute bilateral low back pain without sciatica; Pain of right thigh; Right leg swelling; Sprain of ligament of lumbosacral joint, sequela; DDD (degenerative disc disease), lumbosacral; Primary hypertension Allergies No known active allergiesdocumented as of this encounter (statuses as of 10/30/2023) Medications Medication Sig Dispensed Refills Start Date End Date Status Atenolol 25 MG Oral Tablet (Tenormin)Indicati ons:Primary hypertension TAKE 1 TABLET BY MOUTH EVERY DAY IN THE MORNING 90 Tablet 1 07/13/2023 Active Chlorthalidone 25 MG Oral Tablet (Hygroton)Indicati ons:Primary hypertension TAKE ONE TABLET BY MOUTH DAILY IN THE MORNING 90 Tablet 1 07/13/2023 Active Enalapril Maleate 10 MG Oral Tablet (Vasotec)Indicatio ns:Primary hypertension Take 1 Tablet by mouth in the morning. 90 Tablet 1 07/13/2023 Active Enalapril Maleate 20 MG Oral Tablet (Vasotec)Indicatio ns:Primary hypertension TAKE 1 TABLET BY MOUTH EVERY DAY WITH THE 10MG TABS FOR TOTAL DAILY DOSE OF 30MG 90 Tablet 1 07/13/2023 Active Simvastatin 20 MG Oral Tablet (Zocor)Indications [...] 10/30/2023 Active predniSONE 20 MG Oral Tablet (Deltasone)Indicat [...] for Pain. 180 Tablet 1 10/30/2023 Active Baclofen 20 MG TabletIndications: Acute bilateral low back pain without sciatica Take 1 Tab by mouth 3 times a day. 30 Tab 1 01/12/2019 10/30/2023 Discontinue d(Refill) Naproxen 500 MG Oral Tablet (NAPROSYN)Indicati ons:Sprain of ligament of lumbosacral joint, sequela,DDD (degenerative disc disease), lumbosacral Take 1 Tab by mouth 2 times a day as needed for Pain. 180 Tab 1 08/23/2020 10/30/2023 Discontinue d(Refill) documented as of this encounter (statuses as of 10/30/2023) Active Problems Problem Noted Date Diagnosed Date BMI 35.0-35.9,adult 07/13/2023 Obstructive sleep apnea 12/09/2018 Overview: Dr Bell Dyslipidemia, goal LDL below 130 12/31/2010 Primary hypertension 08/08/2009 Overview: Modified per HTN protocol #16. LUMBAGO 03/16/2006 ADVANCE DIRECTIVE INFORMATION 02/26/2006 Overview: No, Advance Directive brochure given to patient at prior appointment. DDD (degenerative disc disease), lumbosacral documented as of this encounter (statuses as of 10/30/2023) Resolved Problems Problem Noted Date Diagnosed Date Resolved Date Acute bilateral low back kaity n without sciatica 08/05/2016 08/06/2017 BMI 34.0-34.9,adult 04/21/2013 08/23/20 19 Dyslipidemia, goal to be determined 12/16/2004 12/31/2010 HYPERTENSION NOS 08/08/2009 Overview: Modified per HTN protocol #16. Allergic rhinitis 08/06/2017 documented as of this encounter (statuses as of 10/30/2023) Immunizations Name Administration Dates Next Due COVID-19 mRNA, LNP-s, No Pre serve, 2-Dose Series (Fullscreen) 12/20/2021,05/21/2021,10/02/2020,2019 COVID-19, MRNA-LNP, 23-24, P F, 30 [...] Sign Reading Time Taken Comments Blood Pressure 138/88 10/30/2023 9:46 AM EST Pulse 85 10/30/2023 9:46 AM EST Temperature 36.2 C (97.1 F) 10/30/2023 9:46 AM ES T Respiratory Rate - - Oxygen Saturation 96% 10/30/2023 9:46 AM EST Inhaled Oxygen Concentration - - Weight 110.2 kg (243 lb) 10/30/2023 9:46 AM EST Height - - Body Mass Index 35.37 09/18/2023 2:33 PM EST documented in this encounter Progress Notes * Dior Smith MD - 10/30/2023 9:54 AM EST Subjective: Rogelio Barrera is a 57 year old male. Chief Complaint Patient presents with Acute HPI: Brief Clinical History Mr. Barrera is a 57 year old man last seen in Family Medicine 3 months ago (07-13-23). He is not due for eval of any conditions. Was shoveling snow on 10/09/23. He started having pain in the right groin that then radiated down the whole leg. Is able to bear weight now but hurts to bend his leg and get in and out of his truck. No numbness or tingling. Had something like this happen about 10 year and had an x-ray showing arthritis. Is taking naproxen and also some old baclofen. He was also doing one leg squats with an ankle weight on shortly before the pain came on. He was not able to bear full weight on it at first. His whole right leg is more swollen than the left, especially the anterior thigh. No loss of bowel or bladder control. He denies any chest pain or shortness of breath. Would like a refill of the baclofen and naproxen. Has taken prednisone in the past with good results. Results for orders placed or performed in visit on 07/09/23 LIPID PANEL WITH DIRECT LDL IF TG IS HIGH Result Value Ref Range Triglycerides 79 <=174 mg/dL Cholesterol 133 <200 mg/dL HDL Cholesterol 47 >39 mg/dL Non-HDL Cholesterol 86 <=159 mg/dL LDL Cholesterol 70 <=129 mg/dL COMPREHENSIVE METABOLIC PANEL Result Value Ref Range BUN 18 6 - 20 mg/dL Creatinine 1.0 0.6 - 1.2 mg/dL Estimated Glomerular Filtration Rate >90 >=60 mL/min Sodium 138 135 - 146 mmol/L Potassium 4.6 3.5 - 5.1 mmol/L Chloride 101 98 - 107 mmol/L CO2 26 22 - 32 mmol/L Anion Gap 11 7 - 15 mmol/L Glucose 99 70 - 120 mg/dL Albumin 4.6 3.8 - 5.0 g/dL AST 26 10 - 50 U/L Alkaline Phosphatase 48 35 - 130 U/L Bilirubin, Total 0.5 <=1.2 mg/dL Calcium 9.6 8.4 - 10.2 mg/dL Protein 6.9 6.0 - 8.3 g/dL ALT 31 10 - 50 U/L CBC Result Value Ref Range WBC 7.11 4.00 - 10.80 K/uL RBC 5.75 4.50 - 5.25 M/uL HGB 16.6 14.0 - 16.8 g/dL HCT 51.3 (H) 40.0 - 48.4 % MCV 89.2 82.0 - 99.5 fL MCH 28.9 27.0 - 34.0 pg MCHC 32.4 32.0 - 36.0 g/dL RDW 13.3 11.5 - 15.5 % PLT 249 140 - 400 K/uL MPV 11.2 6.6 - 11.1 fL nRBCs 0 <=0 /100 WBCs PHM: Patient Active Problem List Diagnosis Code ADVANCE DIRECTIVE INFORMATION LUMBAGO M54.50 Primary hypertension I10 Dyslipidemia, goal LDL below 130 E78.5 DDD (degenerative disc disease), lumbosacral M51.37 Obstructive sleep apnea G47.33 BMI 35.0-35.9,adult Z68.35 Current Outpatient Medications Medication Sig Dispense Refill Atenolol 25 MG Oral Tablet (Tenormin) TAKE 1 TABLET BY MOUTH EVERY DAY IN THE MORNING 90 Tablet 1 Chlorthalidone 25 MG Oral Tablet (Hygroton) TAKE ONE TABLET BY MOUTH DAILY IN THE MORNING 90 Tablet1 Enalapril Maleate 10 MG Oral Tablet (Vasotec) Take 1 Tablet by mouth in the morning. 90 Tablet 1 Enalapril Maleate 20 MG Oral Tablet (Vasotec) TAKE 1 TABLET BY MOUTH EVERY DAY WITH THE 10MG TABS FOR TOTAL DAILY DOSE OF 30MG 90 Tablet 1 Simvastatin 20 MG Oral Tablet (Zocor) TAKE 1 TABLET BY MOUTH EVERYDAY AT BEDTIME 90 Tablet 1 Baclofen 20 MG Oral Tablet Take 1 Tablet by mouth in the morning and 1 Tablet at noon and 1 Tablet before bedtime. 30 Tablet 1 predniSONE 20 MG Oral Tablet (Deltasone) 1 tab 3 times a day for 3 days, then 1 tab 2 times a day for 3 days, then 1 tab daily for 3 days 18 Tablet 0 Naproxen 500 MG Oral Tablet (Naprosyn) Take 1 Tablet by mouth 2 times a day as needed for Pain. 180Tablet 1 No current facility-administered medications for this visit. Past Medical History: Diagnosis Date Allergic rhinitis BMI 35.0-35.9,adult DDD (degenerative disc disease), lumbosacral Dyslipidemia, goal LDL below 130 Encounter for hepatitis C screening test for low risk patient 11/10/2021 negative Essential hypertension with goal blood pressure less than 140/90 Obstructive sleep apnea 12/09/2018 Dr Bell Past Surgical History: Procedure Laterality Date COLONOSCOPY W/ LESION REMOVAL, SNARE 03/04/2019 rectal polyp at 10 cm REMOVAL OF ADENOIDS, UNDER AGE 13 Social History Socioeconomic History Marital status: Single [...] on file Housing Stability: Not on file Review of patient's allergies indicates: No Known Allergies Objective: BP 138/88 | Pulse 85 | Temp 36.2 C (97.1 F) (Tympanic) | Wt 110.2 kg (243 lb) | SpO2 96% | BMI 35.37 kg/m | BSA 2.32 m Physical Exam: General: alert, healthy, no distress, well nourished, and well developed Heart: regular rate & rhythm, no murmur, and no gallops Lungs: chest symmetric with normal AP diameter, no chest deformities noted, no chest wall tenderness, lungs clear to auscultation Back: back symmetric, no curvature, Some limitation of flexion, +mild tenderness over right SI joint Extremities: no clubbing, no cyanosis, Right lower extremity with large diameter in general compared to the left. +swelling with bulkiness of anterior right thigh and appears to have swelling of prepatellar area. 1+ edema of right calf. No lower extremity edema of left lower extremity. Ambulates with right knee slightly flexed. Unable to flex the hip due to pain and ROM appears restricted. Neuro Exam: alert & oriented x 3 with fluent speech, no focal motor/sensory deficits Extensive ROS Constitutional (f/c/wt/vision/hearing): Negative Resp (cough/sob/mitchell): Negative CV (cp/palp/fluttering/diaphoresis/mitchell/pnd):Negative GI (n/v/d/hrtburn): Negative Endo (hair/cold or heat intol/ 3 p's): Negative Neuro (shaking/weak/fatigu/parasthesi/): see above hpi Skin (rash/easy bruis/xerosis): Negative Psy (si/hi/halluc/): Negative (nocturia/hesit/drib/sexual review): Negative Lymph (swollen glands/b sx's/: Negative ASSESSMENT: Pain of right lower leg (Primary) - Baclofen 20 MG Oral Tablet; Take 1 Tablet by mouth in the morning and 1 Tablet at noon and 1 Tablet before bedtime. - VASC DUPLEX VENOUS LE UNILAT - predniSONE 20 MG Oral Tablet (Deltasone); 1 tab 3 times a day for 3 days, then 1 tab 2 times a day for 3 days, then 1 tab daily for 3 days - US EXTREMITY MSK; Future; Expected date: 10/30/2023 - ORTHOPAEDICS REFERRAL OP Acute bilateral low back pain without sciatica - Baclofen 20 MG Oral Tablet; Take 1 Tablet by mouth in the morning and 1 Tablet at noon and 1 Tablet before bedtime. Pain of right thigh - VASC DUPLEX VENOUS LE UNILAT - US EXTREMITY MSK; Future; Expected date: 10/30/2023 - ORTHOPAEDICS REFERRAL OP Right leg swelling - VASC DUPLEX VENOUS LE UNILAT - US EXTREMITY MSK; Future; Expected date: 10/30/2023 - ORTHOPAEDICS REFERRAL OP Sprain of ligament of lumbosacral joint, sequela - Naproxen 500 MG Oral Tablet (Naprosyn); Take 1 Tablet by mouth 2 times a day as needed for Pain. DDD (degenerative disc disease), lumbosacral - Naproxen 500 MG Oral Tablet (Naprosyn); Take 1 Tablet by mouth 2 times a day as needed for Pain. Follow Up: Return as scheduled. PLAN: Continue present medication(s): Begin medication(s): Prednisone taper for leg pain swelling Renew prescription(s) for: Baclofen and naproxen Study(ies) ordered: Venous duplex to r/o DVT and MSK ultrasound to evaluate for ruptured/torn quadriceps. Referral(s) to: Orthopedics due to strong suspicion for torn or ruptured quadriceps muscle. Follow up: As scheduled to establish with new PCP. Dior Smith MD documented in this encounter Nursing Notes * Luz Patiño LPN - 10/30/2023 9:46 AM EST Pain in right leg Thinks coming from back Has been getting worse since about 10/09/23 from shoveling snow. documented in this encounter Plan of Treatment Upcoming Encounters Date Type Department Care Team (Late st Contact Info) Description 10/30/2023 2:15 PM EST Imaging Radiology [address] [place] [address] 11/02/2023 2:15 PM EST Imaging Rad[facility] [place] [address] 11/05/2023 2:00 PM EST Office Visit Orthopaedics [address] [phone] Wilver Bonds MD [address] [place] [address] 01/13/2024 4:20 PM EDT Office Visit Family Medicine [address] [place] [address] Raul Still MD [address] [place] [address] [place] [address] 03/15/2024 1:20 PM EDT [facility] [address] [place] [address] Madai Rousseau, [address] [place] [address] Scheduled Orders Name Type Priority Associated Diagnoses Orde r Schedule VASC DUPLEX VENOUS LE UNILAT Medical Imaging Routine Pain of right lower leg Pain of right thigh Right leg swelling Ordered: 10/30/2023 US EXTREMITY MSK Medical Imaging Routine Pain of right lower leg Pain of right thigh Right leg swelling Expected: 10/30/2023, Expires: 11/27/2024 Scheduled Referrals Name Type Priority Associated Diagnoses Order Schedule ORTHOPAEDICS REFERRAL OP Referral Within 10 days (routine) Pain of right lower leg Pain of right thigh Right leg swelling Ordered: 10/30/2023 Health Maintenance Due Date Last Done Comments Hepatitis B (1 of 3 - 3-dose series) 1966 HIV Screening 1981 Cologuard 12/24/2011 Fecal Occult Blood Test 12/24/2011 Sigmoidoscopy 12/24/2011 Depression Screening 08/23/2021 08/23/2020 GFR 07/09/2024 07/09/2023, 10/23, 08/28/2020, Additional history exists Albumin/Creatinine Ratio 11/10/2024 11/10/2021, 1205/2020 Diabetes Screening 07/09/2026 07/09/2023, 0 11/10/2021, 08/28/2020, Additional history exists Lipid Panel 07/09/2028 07/09/2023, 022 , 08/28/2020, Additional history exists DTaP,Tdap,and Td Vaccines [...] encounter Visit Diagnoses Diagnosis Pain of right lower leg- Primary Pain in limb Acute bilateral low back pain without sciatica Pain of right thigh Pain in limb Right leg swelling Sprain of ligament of lumbosacral joint, sequela DDD (degenerative disc disease), lumbosacral Degeneration of lumbar or lumbosacral intervertebral disc Primary hypertension Unspecified essential hypertension documented in this encounter Care Teams Invertebrate Paleontologist Relationship Specialty Start Date End Date Raul Still MD [address] [place] [address] [place] [address] PCP - General Family Medicine 10/30/23 documented as of this encounter"
--- OUTSIDE RECORDS SUMMARY | 2023-12-18 08:58 | External Medical Summary | Summary of Care ---
Author Name Unknown Organization [facility] Address [address] [facility] [place] [address] Phone [phone] Care Team Providers Care Crimp Setter Name Role Phone Flo Jackson MD Primary Care Provider Reason for Visit * Reason Onset Date Comments Durable Medical Equipment 09/22/2023 Fax [facility] only upped patients pressure. Encounter Details Date Type Department Care Team (Late st Contact Info) Description 09/22/2023 Telephone Pulmonary Medicine, [facility] [address] [place] [address] Madai Rousseau, [address] [place] [address] Durable Medical Equipment (Fax supply ord... Allergies No known active allergiesdocumented as of this encounter (statuses as of 10/27/2023) Medications Medication Sig Dispensed Refills Start Date [...] as of this encounter (statuses as of 10/27/2023) Active Problems Problem Noted Date Diagnosed Date BMI 35.0-35.9,adult 07/13/2023 Obstructive sleep apnea 12/09/2018 Overview: Dr Bell Dyslipidemia, goal LDL below 130 12/31/2010 Primary hypertension 08/08/2009 Overview: Modified per HTN protocol #16. LUMBAGO 03/16/2006 ADVANCE DIRECTIVE INFORMATION 02/26/2006 Overview: No, Advance Directive brochure given to patient at prior appointment. DDD (degenerative disc disease), lumbosacral documented as of this encounter (statuses as of 10/27/2023) Resolved Problems Problem Noted Date Diagnosed Date Resolved Date Acute bilateral low back kaity n without sciatica 08/05/2016 08/06/2017 BMI 34.0-34.9,adult 04/21/2013 08/23/20 19 Dyslipidemia, goal to be determined 12/16/2004 12/31/2010 HYPERTENSION NOS 08/08/2009 Overview: Modified per HTN protocol #16. Allergic rhinitis 08/06/2017 documented as of this encounter (statuses as of 10/27/2023) Immunizations Name Administration Dates Next Due COVID-19 [...] encounter Miscellaneous Notes * Telephone Encounter - Mary Mercedes LPN - 10/27/2023 3:18 PM EST Per [facility], supplies were delivered to the pt 01/30/24. * Telephone Encounter - Madai Rousseau DO - 10/20/2023 7:39 AM EST Order rewritten (in separate encounter) from 09/18/23 - please update patient * Telephone Encounter - Isabel Chaney OSA - 10/19/2023 2:06 PM EST Patient calling in stating that they only upped his pressure they stated they never received the order for the CPAP supplies(09/18/23) can you please refax them the order for the supplies. The patient really needs his supplies. [facility]. * Telephone Encounter - Yazmin Hernandez OSA - 09/22/2023 10:09 AM EST BiPAP supply order entered in [facility]. Switching to [facility]. Faxed order to [facility] for PAP report. documented in this encounter Plan of Treatment Upcoming Encounters Date Type Department Care Team (Late st Contact Info) Description 01/13/2024 4:20 PM EDT Office Visit Family [address] [place] [phone] Raul Still MD [address] [place] [address] [place] [address] 03/15/2024 1:20 PM EDT Office Visit Sleep Disorders Ctr [facility] [address] [place] [phone] Madai Rousseau DO [address] [place] [address] Health Maintenance Due Date Last Done Comments Hepatitis B (1 of 3 - 3-dose series) 1966 HIV Screening 1981 Cologuard 12/24/2011 Fecal Occult Blood Test 12/24/2011 Sigmoidoscopy 12/24/2011 Depression Screening 08/23/2021 08/23/2020 GFR 07/09/2024 07/09/2023, /2 , 08/28/2020, Additional history exists Albumin/Creatinine Ratio [...] filedocumented as of this encounter Care Teams Crimp Setter Relationship Specialty Start Date End Date Flo Jackson MD PCP - General Family Medicine 04/25/14 documented as of this encounter
--- OUTSIDE RECORDS SUMMARY | 2023-12-18 08:58 | External Medical Summary | Summary of Care ---
Author Name Unknown Organization [facility] Address [address] [facility] [place] [address] Phone [phone] Care Team Providers Care Car Ferry Captain Name Role Phone Flo Jackson MD Primary Care Provider Encounter Details Date Type Department Care Team (Late st Contact Info) Description 10/20/2023 Telephone Pulmonary Medicine, [facility] [address] [place] [address] Madai Rousseau, [address] [place] [address] Allergies No known active allergiesdocumented as of [...] mRNA, LNP-s, No Pre serve, 2-Dose Series (Plaxo) 12/20/2021,05/21/2021,10/02/2020,2019 COVID-19, MRNA-LNP, 23-24, P F, 30 [...] encounter Miscellaneous Notes * Telephone Encounter - Yazmin Hernandez OSA - 10/20/2023 9:27 AM EST CPAP supply order entered in [facility]. documented in this encounter Plan of Treatment Upcoming Encounters Date Type Department Care Team (Late st Contact Info) Description 01/13/2024 4:20 PM EDT Office Visit Family Medicine [address] [place] [phone] Raul Still MD [address] [place] [address] [place] [address] 03/15/2024 1:20 PM EDT Office Visit Sleep Disorders Ctr [facility] [address] [place] [phone] Madai Rousseau, [address] [place] [address] Health Maintenance Due Date Last Done Comments [...] filedocumented as of this encounter Care Teams Car Ferry Captain Relationship Specialty Start Date End Date Flo Jackson MD PCP - General Family Medicine 04/25/14 documented as of this encounter
--- OUTSIDE RECORDS SUMMARY | 2023-12-18 08:58 | External Medical Summary | Summary of Care ---
Author Name Unknown Organization [facility] Address [address] [facility] [place] [address] Phone [phone] Care Team Providers Care Powder Truck Driver Name Role Phone Flo Jackson MD Primary Care Provider Reason for Visit * Reason Onset Date Comments Durable Medical Equipment 09/22/2023 Fax [facility] only upped patients pressure. Encounter Details Date Type Department Care Team (Late st Contact Info) Description 09/22/2023 Telephone Pulmonary Medicine, [facility] [address] [place] [address] Madai Rousseau, [address] [place] [address] Durable Medical Equipment (Fax supply ord... Allergies [...] encounter Miscellaneous Notes * Telephone Encounter - Madai Rousseau DO [...] supply order entered in [facility]. Switching to [facility] Faxed order to [facility] for PAP report. documented in this encounter Plan of Treatment Upcoming Encounters Date Type Department Care Team (Late st Contact Info) Description 01/13/2024 4:20 PM EDT Office Visit Family Medicine [address] [place] [phone] Raul Still MD [address] [place] [address] [place] [address] 03/15/2024 1:20 PM EDT Office Visit Sleep Disorders Ctr [facility] [address] [place] [phone] Madai Rousseau DO [address] [place] [address] Health Maintenance Due Date Last Done Comments [...] filedocumented as of this encounter Care Teams Powder Truck Driver Relationship Specialty Start Date End Date Flo Jackson MD PCP - General Family Medicine 04/25/14 documented as of this encounter
--- OUTSIDE RECORDS SUMMARY | 2023-12-18 08:58 | External Medical Summary | Summary of Care ---
Author Name Unknown Organization [facility] Address [address] [facility] [place] [address] Phone [phone] Care Team Providers Care Four Slide Machine Setter Name Role Phone Raul Still MD Primary Care Provide r Reason for Visit * Reason Onset Date Comments Test Results 11/02/2023 Unexpected or In determinate Result Encounter Details Date Type Department Care Team (Late st Contact Info) Description 11/02/2023 Telephone Laboratory, [facility] [address] [place] [address] Dior Smith MD [address] [place] [address] [place] [id number] Test Results (Unexpected or Indeterminate ... Allergies [...] encounter Miscellaneous Notes * Telephone Encounter - Merary Pritchard OSA - 11/02/2023 12:12 PM EST Hello- The radiologist discovered an unexpected or indeterminate finding on Rogelio Barrera ([id number]) and asks that you review the following [...] reviewed. Thank you, OFELIA Brewer Client Service Rep [facility] documented in this encounter Plan of Treatment Upcoming Encounters Date Type Department Care Team (Late st Contact Info) Description 11/02/2023 2:15 PM EST Imaging Radiology [facility] [address] [place] [address] 11/05/2023 2:00 PM EST Office Visit Orthopaedics [address] [phone] Wilver Bonds MD [address] [facility] [place] [address] 01/13/2024 4:20 PM EDT Office Visit Family Medicine [address] [phone] Raul Still MD [address] [place] [address] [place] [address] 03/15/2024 1:20 PM EDT Office Visit Sleep Disorders Ctr [facility] [address] [place] [phone] Madai Rousseau, DO [address] [place] [address] Health Maintenance Due Date Last Done Comments [...] filedocumented as of this encounter Care Teams Four Slide Machine Setter Relationship Specialty Start Date End Date Raul Still MD [address] [place] [address] [place] [address] PCP - General Family Medicine 10/30/23 documented as of this encounter
--- OUTSIDE RECORDS SUMMARY | 2023-12-18 08:58 | External Medical Summary ---
Author Name Unknown Address Unknown Organization [id number]:LABORATORY [facility] [place] - [facility] [place] [address] Laboratory Report Ordering Provider Test Date Status HELLEN SANTA 11/05/2023 15:34:13 Final Observation Date Value Abnormality Reference (Units ) Status Borrelia burgdorferi IgG and IgM [Interpretation] in Serum by Immunoassay 11/05/2023 15:34:13 Negative Negative Final Performing Location LABORATORY C - [address] [place] [address]
--- OUTSIDE RECORDS SUMMARY | 2023-12-18 08:58 | External Medical Summary ---
Author Name Unknown Address Unknown Organization [id number]:LAB[facility]ATORY [facility] [place] - [address] [place] [address] Laboratory Report Ordering Provider Test Date Status HELLEN SANTA 11/05/2023 15:34:13 Final Observation Date Value Abnormality Reference (Units ) Status CRP, low-sensitivity 11/05/2023 15:34:13 80 Above high normal <=5 (mg/L) Final Performing Location LAB[facility]ATORY [facility] - [address] [place] [id number]
--- OUTSIDE RECORDS SUMMARY | 2023-12-18 08:58 | External Medical Summary ---
Author Name Unknown Address Unknown Organization K01:LABORATORY [facility] - [address] [place] [address] Laboratory Report Ordering Provider Test Date Status HELLEN SANTA 11/05/2023 15:34:13 Final Observation Date Value Abnormality Reference (Units ) Status Uric Acid 11/05/2023 15:34:13 4.5 3.4-7.0 (m g/dL) Final Performing Location LAB[facility]ATORY [facility] - [address] [place] [address]
--- OUTSIDE RECORDS SUMMARY | 2023-12-18 08:58 | External Medical Summary ---
Author Name Unknown Address Unknown Organization [id number]:[place] [place] [address] [place] [address] Laboratory Report Ordering Provider Test Date Status HELLEN SANTA 11/05/2023 15:34:13 Final Observation Date Value Abnormality Reference (Units ) Status Erythrocyte sedimentation rate by Photometric method 11/05/2023 15:34:13 58 Above high normal <20 (mm/hour) Final Performing Location LABORATORY C - [address] [place] [id number]
--- OUTSIDE RECORDS SUMMARY | 2023-12-18 08:59 | External Medical Summary | Summary of Care ---
Author Name Unknown Organization [facility] Address [address] [facility] [place] [address] Phone [phone] Care Team Providers Care Journeyman Tool And Die Maker Name Role Phone Flo Jackson MD Primary Care Provider Encounter Details Date Type Department Care Team (Late st Contact Info) Description 09/25/2023 Orders Only Sleep Disorders Ctr [facility] [address] [place] [phone] Madai Rousseau DO [address] [place] [address] OFELIA (obstructive sleep apnea)* Allergies No known active allergiesdocumented as of this encounter (statuses as of 09/25/2023) Medications Medication Sig Dispensed Refills Start Date [...] as of this encounter (statuses as of 09/25/2023) Active Problems Problem Noted Date Diagnosed Date BMI 35.0-35.9,adult 07/13/2023 Obstructive sleep apnea 12/09/2018 Overview: Dr Bell Dyslipidemia, goal LDL below 130 12/31/2010 Primary hypertension 08/08/2009 Overview: Modified per HTN protocol #16. LUMBAGO 03/16/2006 ADVANCE DIRECTIVE INFORMATION 02/26/2006 Overview: No, Advance Directive brochure given to patient at prior appointment. DDD (degenerative disc disease), lumbosacral documented as of this encounter (statuses as of 09/25/2023) Resolved Problems Problem Noted Date Diagnosed Date Resolved Date Acute bilateral low back kaity n without sciatica 08/05/2016 08/06/2017 BMI 34.0-34.9,adult 04/21/2013 08/23/20 19 Dyslipidemia, goal to be determined 12/16/2004 12/31/2010 HYPERTENSION NOS 08/08/2009 Overview: Modified per HTN protocol #16. Allergic rhinitis 08/06/2017 documented as of this encounter (statuses as of 09/25/2023) Immunizations Name Administration Dates Next Due COVID-19 mRNA, LNP-s, No Pre serve, 2-Dose Series (Symptom.ly) 12/20/2021,05/21/2021,10/02/2020,2019 COVID-19, MRNA-LNP, 23-24, P F, 30 [...] of this encounter Progress Notes * Madai Rousseau, - 09/25/2023 2:25 PM EST Patient came in to office to explain data could not be retrieved from current SD card. Will base pressure adjustment on most recently 2019 PAP titration study. Will order /18 cmH20 (24/ cmH20 recommended on study). Patient to let us know if that feels insufficient, documented in this encounter Plan of Treatment Upcoming Encounters Date Type Department Care Team (Late st Contact Info) Description 01/13/2024 4:20 PM EDT Office Visit Family Medicine [address] [place] [phone] Raul Still MD [address] [place] [address] [place] [address] 03/15/2024 1:20 PM EDT Office Visit Sleep Disorders Ctr [facility] [address] [place] [phone] Madai Rousseau DO [address] [place] [address] Health Maintenance Due Date Last Done Comments Hepatitis B (1 of 3 - 3-dose series) 1966 HIV Screening 1981 Cologuard 12/24/2011 Fecal Occult Blood Test 12/24/2011 Sigmoidoscopy 12/24/2011 Depression Screening 08/23/2021 08/23/2020 GFR 07/09/2024 07/09/2023, 10/23, 08/28/2020, Additional history exists Albumin/Creatinine Ratio 11/10/2024 11/10/2021, 1205/2020 Diabetes Screening 07/09/2026 07/09/2023, 0 11/10/2021, 08/28/2020, Additional history exists Lipid Panel 07/09/2028 07/09/2023, 02/2 , 08/28/2020, Additional history exists DTaP,Tdap,and Td [...] (pediatric) documented in this encounter Care Teams Journeyman Tool And Die Maker Relationship Specialty Start Date End Date Flo Jackson MD PCP - General Family Medicine 04/25/14 documented as of this encounter
--- OUTSIDE RECORDS SUMMARY | 2023-12-18 08:59 | External Medical Summary | Summary of Care ---
Author Name Unknown Organization [facility] Address [address] [facility] [place] [address] Phone [phone] Care Team Providers Care Lab Courier Name Role Phone Flo Jackson MD Primary Care Provider [phone] Reason for Visit * Reason Comments Follow Up NEW PATIENT Here for new sleep . OFELIA. CPAP. Was recalled and was sent new one . Was going to [facility] for care. Encounter Details Date Type Department Care Team (Late st Contact Info) Description 09/18/2023 2:40 PM EST Office Visit Sleep Disorders Ctr [facility] [address] [place] [phone] Madai Rousseau DO [address] [place] [address] OFELIA (obstructive sleep apnea)* Allergies No known active allergiesdocumented as of this encounter (statuses as of 09/18/2023) Medications Medication Sig Dispensed Refills Start Date [...] as of this encounter (statuses as of 09/18/2023) Active Problems Problem Noted Date Diagnosed Date BMI 35.0-35.9,adult 07/13/2023 Obstructive sleep apnea 12/09/2018 Overview: Dr Bell Dyslipidemia, goal LDL below 130 12/31/2010 Primary hypertension 08/08/2009 Overview: Modified per HTN protocol #16. LUMBAGO 03/16/2006 ADVANCE DIRECTIVE INFORMATION 02/26/2006 Overview: No, Advance Directive brochure given to patient at prior appointment. DDD (degenerative disc disease), lumbosacral documented as of this encounter (statuses as of 09/18/2023) Resolved Problems Problem Noted Date Diagnosed Date Resolved Date Acute bilateral low back kaity n without sciatica 08/05/2016 08/06/2017 BMI 34.0-34.9,adult 04/21/2013 08/23/20 19 Dyslipidemia, goal to be determined 12/16/2004 12/31/2010 HYPERTENSION NOS 08/08/2009 Overview: Modified per HTN protocol #16. Allergic rhinitis 08/06/2017 documented as of this encounter (statuses as of 09/18/2023) Immunizations Name Administration Dates Next Due COVID-19 [...] Date Smoking Tobacco: Never Smokeless Tobacco: Never Tobacco Cessation:Counseling Given: Not Answered Alcohol Use Standard Drinks/Week Comments No 0 [...] Sign Reading Time Taken Comments Blood Pressure 138/90 09/18/2023 2:33 PM EST Pulse 68 09/18/2023 2:33 PM EST Temperature 36.5 C (97.7 F) 09/18/2023 2:33 PM ES T Respiratory Rate 16 09/18/2023 2:33 PM EST Oxygen Saturation 97% 09/18/2023 2:33 PM EST Inhaled Oxygen Concentration - - Weight 112 kg (247 lb) 09/18/2023 2:33 PM EST Height 176.5 cm (5' 9.5") 09/18/2023 2:33 PM EST Body Mass Index 35.95 09/18/2023 2:33 PM EST documented in this encounter Progress Notes * Soham Madai Gray, DO - 09/18/2023 2:37 PM EST INITIAL SLEEP DISORDERS CLINIC EVALUATION Mr. Rogelio Barrera is a 57 year old male w/ a pmh of HTN and DDD who was [facility] by Dr. Jackson for continued care and evaluation of Obstructive Sleep Apnea. Mr. Barrera was diagnosed with severe Obstructive Sleep Apnea in 2019 and started on BiPAP which was helpful to his sleep. He ran out of supplies after getting his recalled machine so hasn't been using his BiPAP. He also recalls that there was times when the pressure seemed to great with his FFM and chin strap and that he took the mask off in his sleep. Home Sleep Apnea Test (HSAT) 12/22/18: WGT 246 lbs LEON 65 O2 Reddy 61 % <90% O2 137 mins Titration Polysomnogram 2019: PAP 5-20; 20/16-24/20 cmH20 24/20 cmH20 1.7 AHI (with REM sleep obtained)Min O2>90 % PLMI 4.2 PAP DL: not available The patient reports having ("+" indicates reports, "-" indicates denies): w/o PAP: + Snoring + Mouth breathing + Acid reflux at night - Nocturia + Morning headaches, mild and rarely - Night sweats Parasomnias Symptoms: - Sleepwalking - Dream-enactment Excessive Daytime Sleepiness: - Drowsy driving + Sleepy with sedentary activity [place] Sleepiness Scale Question 09/16/2023 11:35 AM EST - Filed by Patient What is the chance you will doze off in the following situation? Sitting and reading Slight chance of dozing Watching TV Moderate chance of dozing Sitting inactive in a public place, such as a theater or meeting Slight chance of dozing As a passenger in a car for an hour without a break High chance of dozing Lying down to rest in the afternoon when circumstances permit High chance of dozing When sitting and talking to someone No chance of dozing When sitting quietly after lunch without alcohol Slight chance of dozing In a car, while stopped for a few minutes in traffic No chance of dozing Score (range: 0 - 24) 11 Functional Outcomes Of Sleep Question 09/16/2023 11:37 AM EST - Filed by Patient Please complete the following questions. Do you have difficulty concentrating because you are sleepy or tired? Yes, a little Do you have difficulty remembering things because you are sleepy or tired? No Do you have difficulty operating a motor vehicle for short distances (less than 100 miles) because you become sleepy? No Do you have difficulty operating a motor vehicle for long distances (more than 100 miles) because you become sleepy? Yes, a little Do you have difficulty visiting family or friends in their home because you become sleepy or tired?No Has your relationship with family, friends, or work colleagues been affected because you are sleepyor tired? Yes, a little Do you have difficulty watching a movie or video because you become sleepy or tired? Yes, moderate Do you have difficulty being as active as you want to be in the evening because you are tired or sleepy? Yes, moderate Do you have difficulty being as active as you want to be in the morning because you are tired or sleepy? Yes, moderate Has your mood been affected because you are sleepy or tired? No Score (range: 10 - 40) 31 Travel Screening Question 09/18/2023 2:21 PM EST - Filed by Patient Do you have any of the following new or worsening symptoms? None of these Have you recently been in contact with someone who was sick? 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 30 Tab 1 Naproxen 500 MG Oral Tablet (NAPROSYN) Take 1 Tab by mouth 2 times a day as needed for Pain. 180 Tab 1 Atenolol 25 MG Oral Tablet (Tenormin) TAKE [...] MOUTH EVERYDAY AT BEDTIME 90 Tablet 1 No current facility-administered medications for this visit. Review of patient's allergies indicates: No Known Allergies Social History Tobacco Use Smoking status: Never Smokeless tobacco: Never Vaping Use Vaping Use: Never used Substance Use Topics Alcohol use: No Drug use: No Family History Problem Relation Age of Onset Cancer Mother panreatic Heart Disorder Father Hypertension Father Cancer Grandmother (Maternal) stomach Review Of Systems: All other systems negative except those noted in HPI and below: BP 138/90 | Pulse 68 | Temp 36.5 C (97.7 F) (Tympanic) | Resp 16 | Ht 1.765 m (5' 9.5") | Wt 112 kg (247 lb) | SpO2 97% | BMI 35.95 kg/m | BSA 2.34 m Neck Circumference= 19.5 inches PHYSICAL EXAMINATION: General - NAD, WDWN Cardiovascular- regular rate and rhythm without murmur Lungs - clear to auscultation bilaterally HEENT - mallampati score of 4, no posterior pharynx erythema Extremities - no c/c/e Mental status- alert and oriented times three, normal speech and comprehension Cranial nerve exam 2- pupils equally round and reactive to light and accomodation, visual minaya full to confrontation 3,4,6- extraocular eye movements full without nystagmus 5- facial sensation normal in V1, V2, V3 bilaterally 7- facial strength intact bilaterally 8- hearing intact bilaterally 9,10- palate elevates symmetrically 11- SCM and traps are 5/5 bilaterally 12- Tongue protrudes to midline Motor- 5/5 throughout Reflexes- symmetric at biceps, BR and patellars B/L Sensory exam- intact to light touch in all four extremities Coordination- no action or resting tremor Gait- normal casual gait ASSESSMENT: Severe Obstructive Sleep Apnea PLAN: - We went over the diagnosis of severe obstructive sleep apnea - Continue BiPAP - Obtain DL and adjust pressure accordingly - Transfer DME to [facility] RTC 6 months Electronically signed: Madai Rousseau DO Sleep Medicine documented in this encounter Nursing Notes * Thi Howell LPN - 09/18/2023 2:35 PM EST Chief Complaint Patient presents with Follow Up NEW PATIENT Here for new sleep . OFELIA. CPAP. Was recalled and was sent new one . Was going to [facility]. DME: AB. Neck: 19.5". [place] Sleepiness Scale Question 09/16/2023 11:35 AM EST - Filed by Patient What is the chance you will doze off in the following situation? Sitting and reading Slight chance of dozing Watching TV Moderate chance of dozing Sitting inactive in a public place, such as a theater or meeting Slight chance of dozing As a passenger in a car for an hour without a break High chance of dozing Lying down to rest in the afternoon when circumstances permit High chance of dozing When sitting and talking to someone No chance of dozing When sitting quietly after lunch without alcohol Slight chance of dozing In a car, while stopped for a few minutes in traffic No chance of dozing Score (range: 0 - 24) 11 Functional Outcomes Of Sleep Question 09/16/2023 11:37 AM EST - Filed by Patient Please complete the following questions. Do you have difficulty concentrating because you are sleepy or tired? Yes, a little Do you have difficulty remembering things because you are sleepy or tired? No Do you have difficulty operating a motor vehicle for short distances (less than 100 miles) because you become sleepy? No Do you have difficulty operating a motor vehicle for long distances (more than 100 miles) because you become sleepy? Yes, a little Do you have difficulty visiting family or friends in their home because you become sleepy or tired?No Has your relationship with family, friends, or work colleagues been affected because you are sleepyor tired? Yes, a little Do you have difficulty watching a movie or video because you become sleepy or tired? Yes, moderate Do you have difficulty being as active as you want to be in the evening because you are tired or sleepy? Yes, moderate Do you have difficulty being as active as you want to be in the morning because you are tired or sleepy? Yes, moderate Has your mood been affected because you are sleepy or tired? No Score (range: 10 - 40) 31 Travel Screening Question 09/18/2023 2:21 PM EST - Filed by Patient Do you have any of the following new or worsening symptoms? None of these Have you recently been in contact with someone who was sick? No / Unsure documented in this encounter Plan of Treatment Upcoming Encounters Date Type Department Care Team (Late st Contact Info) Description 01/13/2024 4:20 PM EDT Office Visit Family [address] [place] [phone] Raul Still MD [address] [place] [address] [place] [address] 03/15/2024 1:20 PM EDT [facility] [address] [place] [phone] Madai Rousseau DO [address] [place] [address] Health Maintenance Due Date Last Done Comments Hepatitis B (1 of 3 - 3-dose series) 1966 HIV Screening 1981 Cologuard 12/24/2011 Fecal Occult Blood Test 12/24/2011 Sigmoidoscopy 12/24/2011 Depression Screening 08/23/2021 08/23/2020 GFR 07/09/2024 07/09/2023, 10/23, 08/28/2020, Additional history exists Albumin/Creatinine Ratio 11/10/2024 11/10/2021, 12/0 05/2020 Diabetes Screening 07/09/2026 07/09/2023, 0 11/10/2021, [...] (pediatric) documented in this encounter Care Teams Lab Courier Relationship Specialty Start Date End Date Flo Jackson MD PCP - General Family Medicine 04/25/14 documented as of this encounter
--- OUTSIDE RECORDS SUMMARY | 2023-12-18 08:59 | External Medical Summary | Summary of Care ---
Author Name Unknown Organization [facility] Address [address] [facility] [place] [address] Phone [phone] Care Team Providers Care Ethylene Plant Helper Name Role Phone Flo Jackson MD Primary Care Provider [phone] Reason for Visit * Reason Onset Date Comments Durable Medical Equipment 09/22/2023 Fax [facility] only upped patients pressure. Encounter Details Date Type Department Care Team (Late st Contact Info) Description 09/22/2023 Telephone Pulmonary Medicine, [facility] [address] [place] [address] Madai Rousseau, [address] [place] [address] Durable Medical Equipment (Fax supply ord... Allergies No known active allergiesdocumented as of this encounter (statuses as of 10/19/2023) Medications Medication Sig Dispensed Refills Start Date [...] as of this encounter (statuses as of 10/19/2023) Active Problems Problem Noted Date Diagnosed Date BMI 35.0-35.9,adult 07/13/2023 Obstructive sleep apnea 12/09/2018 Overview: Dr Bell Dyslipidemia, goal LDL below 130 12/31/2010 Primary hypertension 08/08/2009 Overview: Modified per HTN protocol #16. LUMBAGO 03/16/2006 ADVANCE DIRECTIVE INFORMATION 02/26/2006 Overview: No, Advance Directive brochure given to patient at prior appointment. DDD (degenerative disc disease), lumbosacral documented as of this encounter (statuses as of 10/19/2023) Resolved Problems Problem Noted Date Diagnosed Date Resolved Date Acute bilateral low back kaity n without sciatica 08/05/2016 08/06/2017 BMI 34.0-34.9,adult 04/21/2013 08/23/20 19 Dyslipidemia, goal to be determined 12/16/2004 12/31/2010 HYPERTENSION NOS 08/08/2009 Overview: Modified per HTN protocol #16. Allergic rhinitis 08/06/2017 documented as of this encounter (statuses as of 10/19/2023) Immunizations Name Administration Dates Next Due COVID-19 [...] encounter Miscellaneous Notes * Telephone Encounter - Isabel Chaney, OFELIA - 10/19/2023 2:06 PM EST Patient calling [...] supply order entered in TH. Switching to [facility]. Faxed order to [facility] for PAP report. documented in this encounter Plan of Treatment Upcoming Encounters Date Type Department Care Team (Late st Contact Info) Description 01/13/2024 4:20 PM EDT Office Visit Family Medicine [address] [place] [phone] Raul Still MD [address] [place] [address] [place] [address] 03/15/2024 1:20 PM EDT Office Visit Sleep Disorders Ctr [facility] [address] [place] [phone] Madai Rousseau, [address] [place] [address] Health Maintenance Due Date Last Done Comments [...] filedocumented as of this encounter Care Teams Ethylene Plant Helper Relationship Specialty Start Date End Date Flo Jackson MD PCP - General Family Medicine 04/25/14 documented as of this encounter
--- OUTSIDE RECORDS SUMMARY | 2023-12-18 08:59 | External Medical Summary | Summary of Care ---
Author Name Unknown Organization [facility] Address [address] [facility] [place] [address] Phone [phone] Care Team Providers Care Investigations Chief Name Role Phone Flo Jackson MD Primary Care Provider Encounter Details Date Type Department Care Team (Late st Contact Info) Description 09/22/2023 Telephone Pulmonary Medicine, [facility] [address] [place] [address] Madai Rousseau, [address] [place] [phone] Allergies No known active allergiesdocumented as of this encounter (statuses as of 09/22/2023) Medications Medication Sig Dispensed Refills Start Date [...] as of this encounter (statuses as of 09/22/2023) Active Problems Problem Noted Date Diagnosed Date BMI 35.0-35.9,adult 07/13/2023 Obstructive sleep apnea 12/09/2018 Overview: Dr Bell Dyslipidemia, goal LDL below 130 12/31/2010 Primary hypertension 08/08/2009 Overview: Modified per HTN protocol #16. LUMBAGO 03/16/2006 ADVANCE DIRECTIVE INFORMATION 02/26/2006 Overview: No, Advance Directive brochure given to patient at prior appointment. DDD (degenerative disc disease), lumbosacral documented as of this encounter (statuses as of 09/22/2023) Resolved Problems Problem Noted Date Diagnosed Date Resolved Date Acute bilateral low back kaity n without sciatica 08/05/2016 08/06/2017 BMI 34.0-34.9,adult 04/21/2013 08/23/20 19 Dyslipidemia, goal to be determined 12/16/2004 12/31/2010 HYPERTENSION NOS 08/08/2009 Overview: Modified per HTN protocol #16. Allergic rhinitis 08/06/2017 documented as of this encounter (statuses as of 09/22/2023) Immunizations Name Administration Dates Next Due COVID-19 mRNA, LNP-s, No Pre serve, 2-Dose Series (Soufun) 12/20/2021,05/21/2021,10/02/2020,2019 COVID-19, MRNA-LNP, 23-24, P F, 30 [...] supply order entered in TH. Switching to [facility]. Faxed order to [facility] for PAP report. documented in this encounter Plan of Treatment Upcoming Encounters Date Type Department Care Team (Late st Contact Info) Description 01/13/2024 4:20 PM EDT Office Visit Family Medicine [address] [place] [phone] Raul Still MD [address] [place] [address] [place] [address] 03/15/2024 1:20 PM EDT Office Visit Sleep Disorders Ctr [facility] [address] [place] [phone] Madai Rousseau, [address] [place] [address] Health Maintenance Due Date Last Done Comments [...] filedocumented as of this encounter Care Teams Investigations Chief Relationship Specialty Start Date End Date Flo Jackson MD PCP - General Family Medicine 04/25/14 documented as of this encounter
--- OUTSIDE RECORDS SUMMARY | 2023-12-18 08:59 | External Medical Summary | Summary of Care ---
Author Name Unknown Organization [facility] Address [address] [facility] [place] [address] Phone [phone] Care Team Providers Care Barn Hand Name Role Phone Flo Jackson MD Primary Care Provider Reason for Visit * Reason Onset Date Comments Durable Medical Equipment 09/22/2023 Fax [facility] only upped patients pressure. Encounter Details Date Type Department Care Team (Late st Contact Info) Description 09/22/2023 Telephone Pulmonary Medicine, [facility] [address] [place] [address] Madai Rousseau, [address] [place] [address] Durable Medical Equipment (Fax supply ord... Allergies [...] supply order entered in TH. Switching to [facility]. Faxed order to [facility] for PAP report. documented in this encounter Plan of Treatment Upcoming Encounters Date Type Department Care Team (Late st Contact Info) Description 01/13/2024 4:20 PM EDT Office Visit Family Medicine [address] [place] [phone] Raul Still MD [address] [place] [address] [place] [address] 03/15/2024 1:20 PM EDT Office Visit Sleep Disorders Ctr [facility] [address] [place] [phone] Madai Rousseau, [address] [place] [address] Health Maintenance Due Date Last Done Comments [...] filedocumented as of this encounter Care Teams Barn Hand Relationship Specialty Start Date End Date Flo Jackson MD PCP - General Family Medicine 04/25/14 documented as of this encounter
--- OUTSIDE RECORDS SUMMARY | 2023-12-18 09:00 | External Medical Summary | Summary of Care ---
Author Name Unknown Organization [facility] Address [address] [facility] [address] Phone [phone] Care Team Providers Care Power Cutting Machine Operator Name Role Phone Flo Jackson MD Primary Care Provider Encounter Details Date Type Department Care Team (Late st Contact Info) Description 07/13/2023 4:00 PM EDT Immunization Ancillary [address] [place] [address] [place], Covid19 Vaccine [address] [place] [address] Arrived Allergies No known active allergiesdocumented as of this encounter (statuses as of 07/13/2023) Medications Medication Sig Dispensed Refills Start Date End Date Status Baclofen 20 MG TabletIndications:Acute bilateral low back pain without sciatica Take 1 Tab by mouth 3 times a day. 30 Tab 1 01/12/2019 Active Naproxen 500 MG Oral Tablet (NAPROSYN)Indications:S prain of ligament of lumbosacral joint, sequela,DDD (degenerative disc disease), lumbosacral Take 1 Tab by mouth 2 times a day as needed for Pain. 180 Tab 1 08/23/2020 Active documented as of this encounter (statuses as of 07/13/2023) Active Problems Problem Noted Date Diagnosed Date BMI 35.0-35.9,adult 07/13/2023 Obstructive sleep apnea 12/09/2018 Overview: Dr Bell Dyslipidemia, goal LDL below 130 12/31/2010 Primary hypertension 08/08/2009 Overview: Modified per HTN protocol #16. LUMBAGO 03/16/2006 ADVANCE DIRECTIVE INFORMATION 02/26/2006 Overview: No, Advance Directive brochure given to patient at prior appointment. DDD (degenerative disc disease), lumbosacral documented as of this encounter (statuses as of 07/13/2023) Resolved Problems Problem Noted Date Diagnosed Date Resolved Date Acute bilateral low back kaity n without sciatica 08/05/2016 08/06/2017 BMI 34.0-34.9,adult 04/21/2013 08/23/20 19 Dyslipidemia, goal to be determined 12/16/2004 12/31/2010 HYPERTENSION NOS 08/08/2009 Overview: Modified per HTN protocol #16. Allergic rhinitis 08/06/2017 documented as of this encounter (statuses as of 07/13/2023) Immunizations Name Administration Dates Next Due COVID-19 mRNA, LNP-s, No Pre serve, 2-Dose Series (Pfizer) 12/20/2021,05/21/2021,10/02/2020,2019 COVID-19, MRNA-LNP, 23-24, P F, 30 MCG/0.3 mL, 12 YRS AND ABOVE, IM (PFIZER-Comirnaty) 07/13/2023 SEASONAL INFLUENZA, PF, 6 M & Above, IM , (FLULAVAL or FLUZONE) 06/27/2023,06/28/2022 Seasonal Influenza, Quadriva lent, No Preserve, [...] 4:20 PM EDT Office Visit Family Medicine [address] [place] [phone] Raul Still MD [address] [place] [address] [place] [address] Health Maintenance Due Date Last Done Comments [...] filedocumented as of this encounter Care Teams Power Cutting Machine Operator Relationship Specialty Start Date End Date Flo Jackson MD PCP - General Family Medicine 04/25/14 documented as of this encounter
--- OUTSIDE RECORDS SUMMARY | 2023-12-18 09:00 | External Medical Summary | Summary of Care ---
Author Name Unknown Organization [facility] Address [address] [place] [address] Phone [phone] Care Team Providers Care Office Executive Name Role Phone Flo Bill MD Primary Care Provider [phone] Reason for Visit * Reason Comments eRx-Medication Refill Encounter Details Date Type Department Care Team (Late st Contact Info) Description 12/25/2022 Refill Family Medicine [address] [place] [phone] Flo Bill MD [address] [place] [address] [place] [address] Primary hypertension; Dyslipidemia, goal LDL below 130 Allergies No known active allergiesdocumented as of this encounter (statuses as of 07/24/2023) Medications Medication Sig Dispensed Refills Start Date End Date Status Baclofen 20 MG TabletIndications :Acute bilateral low back pain without sciatica Take 1 Tab by mouth 3 times a day. 30 Tab 1 01/12/2019 Active Naproxen 500 MG Oral Tablet (NAPROSYN)Indicat ions:Sprain of ligament of lumbosacral joint, sequela,DDD (degenerative disc disease), lumbosacral Take 1 Tab by mouth 2 times a day as needed for Pain. 180 Tab 1 08/23/2020 Active Simvastatin 20 MG Oral Tablet (Zocor)Indication s:Dyslipidemia, goal LDL below 130 TAKE ONE TABLET BY MOUTH DAILY AT BEDTIME 90 Tablet 1 03/28/2022 12/27/19 23 Discontinued Atenolol 25 MG Oral Tablet (Tenormin)Indicat ions:Primary hypertension TAKE ONE TABLET BY MOUTH DAILY IN THE MORNING 90 Tablet 1 07/03/2022 06/28/20 23 Discontinued Chlorthalidone 25 MG Oral Tablet (Hygroton)Indicat ions:Primary hypertension TAKE ONE TABLET BY MOUTH DAILY IN THE MORNING 90 Tablet 1 07/03/2022 07/13/20 23 Discontinued(Ref ill) Enalapril Maleate 10 MG Oral Tablet (Vasotec)Indicati ons:Primary hypertension Take 3 Tablets (30 mg) by mouth in the morning. TAKE ONE TABLET BY MOUTH DAILY. 270 Tablet 1 08/29/2022 03/12/20 23 Discontinued Enalapril Maleate 20 MG Oral Tablet (Vasotec)Indicati ons:Primary hypertension One daily with 10 mg for total dose of 30 mg 90 Tablet 1 09/11/2022 03/12/20 Discontinued Simvastatin 20 MG Oral Tablet (Zocor)Indication s:Dyslipidemia, goal LDL below 130 TAKE 1 TABLET BY MOUTH EVERYDAY AT BEDTIME 90 Tablet 0 12/26/2022 06/26/20 23 Discontinued documented as of this encounter (statuses as of 07/24/2023) Active Problems Problem Noted Date Diagnosed Date BMI 35.0-35.9,adult 07/13/2023 Obstructive sleep apnea 12/09/2018 Overview: Dr Bell Dyslipidemia, goal LDL below 130 12/31/2010 Primary hypertension 08/08/2009 Overview: Modified per HTN protocol #16. LUMSHERRY 03/16/2006 ADVANCE DIRECTIVE INFORMATION 02/26/2006 Overview: No, Advance Directive brochure given to patient at prior appointment. DDD (degenerative disc disease), lumbosacral documented as of this encounter (statuses as of 07/24/2023) Resolved Problems Problem Noted Date Diagnosed Date Resolved Date Acute bilateral low back kaity n without sciatica 08/05/2016 08/06/2017 BMI 34.0-34.9,adult 04/21/2013 08/23/20 19 Dyslipidemia, goal to be determined 12/16/2004 12/31/2010 HYPERTENSION NOS 08/08/2009 Overview: Modified per HTN protocol #16. Allergic rhinitis 08/06/2017 documented as of this encounter (statuses as of 07/24/2023) Immunizations Name Administration Dates Next Due COVID-19 [...] encounter Miscellaneous Notes * Telephone Encounter - TravelpieceMargaux PHARM Tech - 07/24/2023 4:24 PM EDT Received message from [facility] regarding patient needing appointment and labs. Patient had labs drawn on07/09/2023 and appointment on 07/13/2023. Thank you, Margaux Andino [employer] 07/24/2023,4:24 PM * Telephone Encounter - Celena Lala PHARM Tech - 06/26/2023 3:05 PM EDT Received message from [facility] regarding patient needing appointment and labs. Placed call to patient toadvise. Pt was agreeable to set up both an office visit and lab appointment. Patient's lab appointment is walk in and office visit is 07/13/2023. Thank you, Celena Lala [employer] [facility] 06/26/2023, 3:05 PM * Telephone Encounter - Raf Nguyen [facility] - 06/26/2023 1:55 PM EDT Resending to outbound as HP as a new request for the same medication was received and patient has not yet been contacted regarding labs/appt Thanks, Raf Nguyen PharmD Clinical Pharmacist [facility] ([facility]) (formerly [email or web address]) [phone] 06/26/2023, 1:56 PM * Telephone Encounter - Chantal Alford [facility] - 12/26/2022 2:00 PM EDTSigned Prescriptions: Disp Refills Simvastatin 20 MG Oral Tablet (Zocor) 90 Tab*0 Sig: TAKE 1 TABLET BY MOUTH EVERYDAY AT BEDTIME Authorizing Provider: FLO BILL Ordering User: CHANTAL ALFORD Refused Prescriptions: Disp Refills Enalapril Maleate 20 MG Oral Tablet (Vasot*90 Tab*1 Sig: ONE DAILY WITH 10 MG FOR TOTAL DOSE OF 30 MGRefused By: CHANTAL ALFORD Reason for Refusal: Too soon * Telephone Encounter - Chantal Alford RPh - 12/26/2022 1:59 PM EDT Provided 90 days supply with 0 refill. Per refill protocol patient should have routine labs on filewithin past year. Reviewed AMP report, Care Gaps/Health Maintenance, medications list, and for any routine labs typically ordered for this patient. Lab orders placed. Please contact patient to schedule office visit with his PRIMARY CARE and advise of labs ordered for blood draw AND URINE specimen (patient will have to be able to void to provide sample).. Recommendpatient to fast if able for labs. Patient may still have water and regular medications. Advise to obtain labs before requesting the next refill. Last Visit: 05/06/2022 (in office), Visit date not found (telemedicine) - overdue for 6 mth f/u Next Visit: Visit date not found Thank you, Chantal Alford, PharmD Staff Pharmacist [facility] [phone] 12/26/2022, 2:00 PM documented in this encounter Plan of Treatment Upcoming Encounters Date Type Department Care Team (Late st Contact Info) Description 01/13/2024 4:20 PM EDT Office Visit Family Medicine [address] [place] [phone] Raul Still MD [address] [place] [address] [place] [address] Health Maintenance Due Date Last Done Comments [...] as of this encounter Visit Diagnoses Diagnosis Primary hypertension Unspecified essential hypertension Dyslipidemia, goal LDL below 130 Other and unspecified hyperlipidemia documented in this encounter Care Teams Office Executive Relationship Specialty Start Date End Date Flo Bill MD PCP - General Family Medicine 04/25/14 documented as of this encounter
--- OUTSIDE RECORDS SUMMARY | 2023-12-18 09:00 | External Medical Summary | Summary of Care ---
Author Name Unknown Organization [facility] Address [address] [place] [address] Phone [phone] Care Team Providers Care Guest Relations Receptionist Name Role Phone Flo Jackson MD Primary Care Provider Reason for Visit * Reason Onset Date Comments Advice 09/15/2023 Return call re: bipap Encounter Details Date Type Department Care Team (Late st Contact Info) Description 09/15/2023 Telephone Access Center, [place] [address] [facility] *DO NOT REMOVE THIS DEPARTMENT* [place] [address] Services, Scheduling [address] [place] [address] Advice (Return call re: bipap) Allergies No known active allergiesdocumented as of this encounter (statuses as of 09/15/2023) Medications Medication Sig Dispensed Refills Start Date [...] as of this encounter (statuses as of 09/15/2023) Active Problems Problem Noted Date Diagnosed Date BMI 35.0-35.9,adult 07/13/2023 Obstructive sleep apnea 12/09/2018 Overview: Dr Bell Dyslipidemia, goal LDL below 130 12/31/2010 Primary hypertension 08/08/2009 Overview: Modified per HTN protocol #16. LUMBAGO 03/16/2006 ADVANCE DIRECTIVE INFORMATION 02/26/2006 Overview: No, Advance Directive brochure given to patient at prior appointment. DDD (degenerative disc disease), lumbosacral documented as of this encounter (statuses as of 09/15/2023) Resolved Problems Problem Noted Date Diagnosed Date Resolved Date Acute bilateral low back kaity n without sciatica 08/05/2016 08/06/2017 BMI 34.0-34.9,adult 04/21/2013 08/23/20 19 Dyslipidemia, goal to be determined 12/16/2004 12/31/2010 HYPERTENSION NOS 08/08/2009 Overview: Modified per HTN protocol #16. Allergic rhinitis 08/06/2017 documented as of this encounter (statuses as of 09/15/2023) Immunizations Name Administration Dates Next Due COVID-19 mRNA, LNP-s, No Pre serve, 2-Dose Series ([facility]) 12/20/2021,05/21/2021,10/02/2020,2019 COVID-19, MRNA-LNP, 23-24, P F, 30 [...] Telephone Encounter - Mary Mercedes LPN - 09/15/2023 3:22 PM EST I called the pt back and obtained the info needed. * Telephone Encounter - Rubina Melgoza OSA - 09/15/2023 2:46 PM EST Patient call in returning the call from one of the nurse. he ask if he can be call back. Please advice Thank you, scheduling services documented in this encounter Plan of Treatment Upcoming Encounters Date Type Department Care Team (Late st Contact Info) Description 09/18/2023 2:40 PM EST Office Visit Sleep Disorders Ctr [facility] [address] [place] [phone] Madai Rousseau, DO [address] [place] [address] 01/13/2024 4:20 PM EDT Office Visit Family Medicine [address] [place] [phone] Raul Still MD [address] [place] [address] [place] [address] Health Maintenance Due Date Last Done Comments [...] filedocumented as of this encounter Care Teams Guest Relations Receptionist Relationship Specialty Start Date End Date Flo Jackson MD PCP - General Family Medicine 04/25/14 documented as of this encounter
--- OUTSIDE RECORDS SUMMARY | 2023-12-18 09:00 | External Medical Summary | Summary of Care ---
Author Name Unknown Organization [facility] Address [address] [place] [address] Phone [phone] Care Team Providers Care Fisher Crab Name Role Phone Flo Bill MD Primary Care Provider Reason for Visit * Reason Comments eRx-Medication Refill Encounter Details Date Type Department Care Team Description 06/26/2023 Refill Family Medicine [address] [place] [phone] Flo Bill MD [address] [place] [address] [place] [address] Encounter for long-term (current) use of medications*; Dyslipidemia, goal LDL below 130; Primary hypertension Allergies No known active allergiesdocumented as of this encounter (statuses as of 06/26/2023) Medications Medication Sig Dispensed Refills Start Date End Date Status Baclofen 20 MG TabletIndications: Acute bilateral low back pain without sciatica Take 1 Tab by mouth 3 times a day. 30 Tab 1 01/12/2019 Active Naproxen 500 MG Oral Tablet (NAPROSYN)Indicati ons:Sprain of ligament of lumbosacral joint, sequela,DDD (degenerative disc disease), lumbosacral Take 1 Tab by mouth 2 times a day as needed for Pain. 180 Tab 1 08/23/2020 Active Atenolol 25 MG Oral Tablet (Tenormin)Indicati ons:Primary hypertension TAKE ONE TABLET BY MOUTH DAILY IN THE MORNING 90 Tablet 1 07/03/2022 Active Chlorthalidone 25 MG Oral Tablet (Hygroton)Indicati ons:Primary hypertension TAKE ONE TABLET BY MOUTH DAILY IN THE MORNING 90 Tablet 1 07/03/2022 Active Simvastatin 20 MG Oral Tablet (Zocor)Indications :Dyslipidemia, goal LDL below 130 TAKE 1 TABLET BY MOUTH EVERYDAY AT BEDTIME 30 Tablet 0 06/26/2023 Active Enalapril Maleate 20 MG Oral Tablet (Vasotec)Indicatio ns:Primary hypertension TAKE 1 TABLET BY MOUTH EVERY DAY WITH THE 10MG TABS FOR TOTAL DAILY DOSE OF 30MG 30 Tablet 0 06/26/2023 Active Enalapril Maleate 10 MG Oral Tablet (Vasotec)Indicatio ns:Primary hypertension TAKE 1 TABLET BY MOUTH EVERY DAY 30 Tablet 0 06/26/2023 Active Simvastatin 20 MG Oral Tablet (Zocor)Indications :Dyslipidemia, goal LDL below 130 TAKE 1 TABLET BY MOUTH EVERYDAY AT BEDTIME 90 Tablet 0 12/26/2022 3 Discontinued Enalapril Maleate 20 MG Oral Tablet (Vasotec)Indicatio ns:Primary hypertension ONE DAILY WITH 10 MG FOR TOTAL DOSE OF 30 MG 90 Tablet 0 03/12/2023 3 Discontinued Enalapril Maleate 10 MG Oral Tablet (Vasotec)Indicatio ns:Primary hypertension TAKE 1 TABLET BY MOUTH EVERY DAY 90 Tablet 0 03/12/2023 3 Discontinued documented as of this encounter (statuses as of 06/26/2023) Active Problems Problem Noted Date BMI 32.0-32.9,adult 08/23/2020 Obstructive sleep apnea 12/09/2018 Overview: Dr Bell Dyslipidemia, goal LDL below 130 011 Primary hypertension 08/08/2009 Overview: Modified per HTN protocol #16. LUMBAGO 03/16/2006 ADVANCE DIRECTIVE INFORMATION 02/26/2006 Overview: No, Advance Directive brochure given to patient at prior appointment. DDD (degenerative disc disease), lumbosa cral documented as of this encounter (statuses as of 06/26/2023) Resolved Problems Problem Noted Date Resolved Date Acute bilateral low back pain without sciatica 1 10/05/2015 08/06/2017 BMI 34.0-34.9,adult 04/21/2013 08/23/2019 Dyslipidemia, goal to be determined 12/16/2004 12/31/2010 HYPERTENSION NOS 08/08/2009 Overview: Modified per HTN protocol #16. Allergic rhinitis 08/06/2017 documented as of this encounter (statuses as of 06/26/2023) Immunizations Name Administration Dates Next Due COVID-19 mRNA, LNP-s, No Pre serve, 2-Dose Series (Pfizer) 12/20/2021,05/21/2021,10/02/2020,2019 SEASONAL INFLUENZA, PF, 6 M & Above, IM , (FLULAVAL or FLUZONE) 06/28/2022 Seasonal Influenza, Quadriva lent, No Preserve, IM [...] drink = 0.6 oz pur e alcohol) Food Insecurity Answer Date Recorded Within the past 12 months, y ou worried that your food would run out before you got money to buy more. Never true 08/23/2020 Within the past 12 months, t he food you bought just didn't last and you didn't have money to get more. Never true 08/23/2020 Sex Assigned at Date Recorded Not on file Job Start Date Occupation Industry Not on file Not on file Not on file documented as of this encounter Miscellaneous Notes * Telephone Encounter - Raf Hartley [facility] - 06/26/2023 1:59 PM EDT Signed Prescriptions: Disp Refills Simvastatin 20 MG Oral Tablet (Zocor) 30 Tab*0 Sig: TAKE 1 TABLET BY MOUTH EVERYDAY AT BEDTIMEAuthorizing Provider: FLO BILL User: ISSA HARTLEY Enalapril Maleate 20 MG Oral Tablet (Vasot*30 Tab*0 Sig: TAKE 1 TABLET BY MOUTH EVERY DAY WITH THE 10MG TABS FOR TOTAL DAILY DOSE OF 30MGAuthorizing Provider: FLO BILLUser: RAF HARTLEY Enalapril Maleate 10 MG Oral Tablet (Vasot*30 Tab*0 Sig: TAKE 1 TABLETBY MOUTH EVERY DAYAuthorizing Provider: FLO BILL User: RAF HARTLEY------ * Telephone Encounter - Raf Hartley RPh - 06/26/2023 1:51 PM EDT Provided 30 days supply with 0 refill. Per refill protocol patient should have OV with PCP and LABS(LIPID CMP CBC) on file within past year. Reviewed AMP report, Care Gaps/Health Maintenance, medications list, and for any routine labs typically ordered for this patient. Lab orders placed. Patient being contacted in 12/25/22 Refill Encounter. Resent 12/25/22 encounter as HP to outbound. Last Visit: 05/06/2022 - Return in about 6 months (around 11/06/2022) (in office), Visit date not found (telemedicine) Next Visit: Visit date not found Raf Duarte PharmD Clinical Pharmacist [facility] ([facility]) [phone] 06/26/2023, 1:56 PM documented in this encounter Plan of Treatment Scheduled Orders Name Type Priority Associated Diagnoses Orde r Schedule LIPID PANEL WITH DIRECT LDL IF TG IS HIGH Lab Routine Dyslipidemia, goal LDL below 130 Encounter for long-term (current) use of medications Expected: 07/03/2023 (Approximate), Expires: 06/26/2024 COMPREHENSIVE METABOLIC PANEL Lab Routine Primary hypertension Encounter for long-term (current) use of medications Expected: 07/03/2023 (Approximate), Expires: 06/26/2024 CBC Lab Routine Encounter for long-term (current) use of medications Expected: 07/03/2023 (Approximate), Expires: 06/26/2024 Health Maintenance Due Date Last Done Comments Hepatitis B (1 of 3 - 3-dose series) 1966 HIV Screening 1981 Cologuard 12/24/2011 Fecal Occult Blood Test 12/24/2011 Sigmoidoscopy 12/24/2011 Depression Screening 08/23/2021 08/23/2020 GFR 11/10/2022 11/10/2021, 04/2020, 08/23/2019, Additional history exists COVID-19 Vaccine ( season) 2023 12/20/2021, 05/21/2021, 10/02/2020, Additional history exists Influenza Vaccine (FLU shot) (#1) 2023 06/28/2022, 07/21/2021, 06/17/2020, Additional history exists Albumin/Creatinine Ratio 11/10/2024 11/10/2021, 05/2020 Diabetes Screening 11/10/2024 11/10/2021, 1 10/29/2019, 08/23/2019, Additional history exists Lipid Panel 11/10/2026 11/10/2021, 04/2020, 08/23/2019, Additional history exists DTaP,Tdap,and Td Vaccines (3 - Td or Tdap) 07/30/2028 07/30/2018, 01/11/2008 Colonoscopy 03/04/2029 03/04/2019 Colorectal Cancer Screening 03/04/2029 Zoster Vaccines Completed 10/02/2021, 08/01/2021 GARDASIL-HPV IMMUNIZATION SERIES Aged Out No longer [...] as of this encounter Visit Diagnoses Diagnosis Encounter for long-term (current) use of medications- Primary Encounter for long-term (current) use of other medications Dyslipidemia, goal LDL below 130 Other and unspecified hyperlipidemia Primary hypertension Unspecified essential hypertension documented in this encounter Care Teams Fisher Crab Relationship Specialty Start Date End Date Flo Bill MD PCP - General Family Medicine 04/25/14 documented as of this encounter
--- OUTSIDE RECORDS SUMMARY | 2023-12-18 09:00 | External Medical Summary | Summary of Care ---
Author Name Unknown Organization [facility] Address [address] [place] [address] Phone [phone] Care Team Providers Care Lay Out Machine Operator Name Role Phone Flo Jackson MD Primary Care Provider + [phone] Reason for Referral * Evaluate & Treat - Unlimited Visits (Within 10 days (routine)) - Authorized Specialty Diagnoses / Procedures Referred By Steve trevino Referred To Contact Sleep Medicine / Sleep Disorders Diagnoses Obstructive sleep apnea Flo Jackson MD [address] [place] [address] [place] [address] Referral ID Status Reason Start Date Expiration Date Visits Requested Visits Authorized [id number] Authorized Specialty Services Required 3 2 2 Question Answer Referral Priority Within 10 days (routine) Where should this appointment be scheduled? [facility] CAD SLEEP MED ADULT REFERRAL Sleep Apnea Testing and Management Does the patient snore and/or gasp at night or has been told they stop breathing at night? Yes Comments Known to have sleep apnea Reason for Visit * Reason Comments Re-Check Encounter Details Date Type Department Care Team (Late st Contact Info) Description 07/13/2023 4:00 PM EDT Office Visit Family Medicine [address] [place] [phone] Flo Jackson MD [address] [place] [address] [place] [address] Primary hypertension*; Dyslipidemia, goal LDL below 130; BMI 35.0-35.9,adult; Obstructive sleep apnea Allergies No known active allergiesdocumented as of [...] AT BEDTIME 90 Tablet 1 07/13/2023 Active Chlorthalidone 25 MG Oral Tablet (Hygroton)Indicati ons:Primary hypertension TAKE ONE TABLET BY MOUTH DAILY IN THE MORNING 90 Tablet 1 07/03/2022 07/13/2023 Discontinued (Refill) Simvastatin 20 MG Oral Tablet (Zocor)Indications :Dyslipidemia, goal LDL below 130 TAKE 1 TABLET BY MOUTH EVERYDAY AT BEDTIME 30 Tablet 0 06/26/2023 07/13/2023 Discontinued (Refill) Enalapril Maleate 20 MG Oral Tablet (Vasotec)Indicatio ns:Primary hypertension TAKE 1 TABLET BY MOUTH EVERY DAY WITH THE 10MG TABS FOR TOTAL DAILY DOSE OF 30MG 30 Tablet 0 06/26/2023 07/13/2023 Discontinued (Refill) Enalapril Maleate 10 MG Oral Tablet (Vasotec)Indicatio ns:Primary hypertension TAKE 1 TABLET BY MOUTH EVERY DAY 30 Tablet 0 06/26/2023 07/13/2023 Discontinued (Refill) Atenolol 25 MG Oral Tablet (Tenormin)Indicati ons:Primary hypertension TAKE 1 TABLET BY MOUTH EVERY DAY IN THE MORNING 90 Tablet 0 06/28/2023 07/13/2023 Discontinued (Refill) documented as of this encounter (statuses as [...] mRNA, LNP-s, No Pre serve, 2-Dose Series ([employer]) 12/20/2021,05/21/2021,10/02/2020,2019 COVID-19, MRNA-LNP, 23-24, P F, 30 [...] Sign Reading Time Taken Comments Blood Pressure 134/88 07/13/2023 3:43 PM EDT Pulse 66 07/13/2023 3:43 PM EDT Temperature 36 C (96.8 F) 07/13/2023 3:43 PM EDT Respiratory Rate 16 07/13/2023 3:43 PM EDT Oxygen Saturation - - Inhaled Oxygen Concentration - - Weight 110.4 kg (243 lb 5 oz) 07/13/2023 3:43 PM EDT Height 176.5 cm (5' 9.5") 07/13/2023 3:43 PM EDT Body Mass Index 35.42 07/13/2023 3:43 PM EDT documented in this encounter Progress Notes * Flo Jackson MD - 07/13/2023 3:42 PM EDT Rogelio did get his labs so needs refills done. He needs a referral for his CPAP as it is overdue forreevaluation. He had one during Covid that got canceled. No complaints of headache, trouble with vision or hearing. Eating well, with no bowel or bladder complaints. Denies chest pain or palpitations. Denies shortness of breath, PND, or orthopnea. No skin rashes or breakdown. No changes in mentation. No syncope or falls. All others negative other than those noted in HPI. Health Maintenance addressed. Colonoscopy 2018, Had the Coronovirus vaccine, 4 doses,had flu shot Will get Covid booster today. Past Medical History: Diagnosis Date Allergic rhinitis [...] cm REMOVAL OF ADENOIDS, UNDER AGE 13 Review of patient's allergies indicates: No Known Allergies Social History Socioeconomic History Marital status: Single Spouse name: Not on file Number of children: Not on file Years of education: Not on file Highest education level: Not on file Occupational History Not on file Tobacco Use Smoking status: Never Smokeless tobacco: Never Substance and Sexual Activity Alcohol use: No Drug use: No Sexual activity: Not on file Other Topics Concern Not on file Social History Narrative Not on file Social Determinants of Health Financial Resource Strain: Not on file Food Insecurity: No Food Insecurity (08/23/2020) Hunger Vital Sign Worried About Running Out of Food in the Last Year: Never true Ran Out of Food in the Last Year: Never true Transportation Needs: Not on file Physical Activity: Not on file Stress: Not on file Social Connections: Not on file Intimate Partner Violence: Not on file Housing Stability: Not on file Current Outpatient Medications Medication Sig Dispense Refill Baclofen 20 MG Tablet Take 1 Tab by mouth 3 times a day. 30 Tab 1 Naproxen 500 MG Oral Tablet (NAPROSYN) Take 1 Tab by mouth 2 times a day as needed for Pain. 180 Tab 1 Chlorthalidone 25 MG Oral Tablet (Hygroton) TAKE ONE TABLET BY MOUTH DAILY IN THE MORNING 90 Tablet1 Simvastatin 20 MG Oral Tablet (Zocor) TAKE 1 TABLET BY MOUTH EVERYDAY AT BEDTIME 30 Tablet 0 Enalapril Maleate 20 MG Oral Tablet (Vasotec) TAKE 1 TABLET BY MOUTH EVERY DAY WITH THE 10MG TABS FOR TOTAL DAILY DOSE OF 30MG 30 Tablet 0 Enalapril Maleate 10 MG Oral Tablet (Vasotec) TAKE 1 TABLET BY MOUTH EVERY DAY 30 Tablet 0 Atenolol 25 MG Oral Tablet (Tenormin) TAKE 1 TABLET BY MOUTH EVERY DAY IN THE MORNING 90 Tablet 0 No current facility-administered medications for this visit. Results for orders placed or performed in visit on 07/09/23 COMPREHENSIVE METABOLIC PANEL Result Value Ref Range [...] g/dL ALT 31 10 - 50 U/L Results for orders placed or performed in visit on 07/09/23 LIPID PANEL WITH DIRECT LDL IF TG IS HIGH Result Value Ref Range Triglycerides 79 <=174 mg/dL Cholesterol 133 <200 mg/dL HDL Cholesterol 47 >39 mg/dL Non-HDL Cholesterol 86 <=159 mg/dL LDL Cholesterol 70 <=129 mg/dL CBC Results: Results for orders placed or performed in visit on 07/09/23 CBC Result Value Ref Range WBC 7.11 [...] 11.1 fL nRBCs 0 <=0 /100 WBCs O: Blood pressure 134/88, pulse 66, temperature 36 C (96.8 F), temperature source Tympanic, resp. rate 16, height 1.765 m (5' 9.5"), weight 110.4 kg (243 lb 5 oz). General appearance: well developed, well nourished and in no acute distress. Neck is supple without adenopathy or thyromegaly. Chest is symmetrical and moves normally. The lungs are clear without wheezes, rales, rhonchi or rubs, and the heart is regular without murmurs or gallops, or ectopy. PMI not displaced. A: Primary hypertension (Primary) - Atenolol 25 MG Oral Tablet (Tenormin); TAKE 1 TABLET BY MOUTH EVERY DAY IN THE MORNING - Chlorthalidone 25 MG Oral Tablet (Hygroton); TAKE ONE TABLET BY MOUTH DAILY IN THE MORNING - Enalapril Maleate 10 MG Oral Tablet (Vasotec); Take 1 Tablet by mouth in the morning. - Enalapril Maleate 20 MG Oral Tablet (Vasotec); TAKE 1 TABLET BY MOUTH EVERY DAY WITH THE 10MG TABS FOR TOTAL DAILY DOSE OF 30MG Dyslipidemia, goal LDL below 130 - Simvastatin 20 MG Oral Tablet (Zocor); TAKE 1 TABLET BY MOUTH EVERYDAY AT BEDTIME BMI 35.0-35.9,adult Obstructive sleep apnea - SLEEP MEDICINE REFERRAL OP Follow Up: Return in about 6 months (around 01/12/2024) for Clinic Visit. | For: Clinic Visit documented in this encounter Nursing Notes * Pili Womack LPN - 07/13/2023 3:43 PM EDT 6 month recheck documented in this encounter Plan of Treatment Upcoming Encounters Date Type Department Care Team (Late st Contact Info) Description 01/13/2024 4:20 PM EDT Office Visit Family Medicine [address] [place] [phone] Raul Still MD [address] [place] [address] [place] [address] Scheduled Referrals Name Type Priority Associated Diagnoses Orde r Schedule SLEEP MEDICINE REFERRAL OP Referral Within 10 days (routine) Obstructive sleep apnea Ordered: 07/13/2023 Health Maintenance Due Date Last Done Comments [...] of this encounter Visit Diagnoses Diagnosis Primary hypertension- Primary Unspecified essential hypertension Dyslipidemia, goal LDL below 130 Other and unspecified hyperlipidemia BMI 35.0-35.9,adult Body Mass Index 35.0-35.9, adult Obstructive sleep apnea Obstructive sleep apnea (adult) (pediatric) documented in this encounter Care Teams Lay Out Machine Operator Relationship Specialty Start Date End Date Flo Jackson MD PCP - General Family Medicine 04/25/14 documented as of this encounter
--- OUTSIDE RECORDS SUMMARY | 2023-12-18 09:00 | External Medical Summary | Summary of Care ---
Author Name Unknown Organization [facility] [address] [facility] [address] Phone [phone] Care Team Providers Care Maintenance Of Way Supervisor Name Role Phone Flo Jackson MD Primary Care Provider [phone] Encounter Details Date Type Department Care Team Description 06/27/2023 Immunization Ancillary [address] [place] [address] [place], Flu Shot [address] [place] [address] Arrived Allergies No known active allergiesdocumented as of this encounter (statuses as of 06/27/2023) Medications Medication Sig Dispensed Refills Start Date [...] MG Oral Tablet (Tenormin)Indications :Primary hypertension TAKE ONE TABLET BY MOUTH DAILY IN THE MORNING 90 Tablet 1 07/03/2022 Active Chlorthalidone 25 MG Oral Tablet (Hygroton)Indications :Primary hypertension TAKE ONE TABLET BY MOUTH DAILY IN THE MORNING 90 Tablet 1 07/03/2022 Active Simvastatin 20 MG Oral Tablet (Zocor)Indications:Dy [...] EVERY DAY 30 Tablet 0 06/26/2023 Active documented as of this encounter (statuses as of 06/27/2023) Active Problems Problem Noted Date BMI 32.0-32.9,adult 08/23/2020 Obstructive sleep apnea 12/09/2018 Overview: Dr Bell Dyslipidemia, goal LDL below 130 011 Primary hypertension 08/08/2009 Overview: Modified per HTN protocol #16. LUMBAGO 03/16/2006 ADVANCE DIRECTIVE INFORMATION 02/26/2006 Overview: No, Advance Directive brochure given to patient at prior appointment. DDD (degenerative disc disease), lumbosa cral documented as of this encounter (statuses as of 06/27/2023) Resolved Problems Problem Noted Date Resolved Date Acute bilateral low back pain without sciatica 1 10/05/2015 08/06/2017 BMI 34.0-34.9,adult 04/21/2013 08/23/2019 Dyslipidemia, goal to be determined 12/16/2004 12/31/2010 HYPERTENSION NOS 08/08/2009 Overview: Modified per HTN protocol #16. Allergic rhinitis 08/06/2017 documented as of this encounter (statuses as of 06/27/2023) Immunizations Name Administration Dates Next Due COVID-19 mRNA, LNP-s, No Pre serve, 2-Dose Series ([employer]) 12/20/2021,05/21/2021,10/02/2020,2019 SEASONAL INFLUENZA, PF, 6 M & [...] Plan of Treatment Upcoming Encounters Date Type Specialty Care Team Description 07/13/2023 Office Visit Family Medicine Flo Jackson MD [address] [place] [address] [place] [address] Health Maintenance Due Date Last Done Comments Hepatitis B (1 of 3 - 3-dose series) 1966 HIV Screening 1981 Cologuard 12/24/2011 Fecal Occult Blood Test 12/24/2011 Sigmoidoscopy 12/24/2011 Depression Screening 08/23/2021 08/23/2020 GFR 11/10/2022 11/10/2021, 04/2020, 08/23/2019, Additional history exists COVID-19 Vaccine ( season) 2023 12/20/2021, 05/21/2021, 10/02/2020, Additional history exists Influenza Vaccine (FLU shot) (#1) 2023 06/27/2023, 06/28/2022, 07/21/2021, Additional history exists Albumin/Creatinine Ratio 11/10/2024 11/10/2021, [...] filedocumented as of this encounter Care Teams Maintenance Of Way Supervisor Relationship Specialty Start Date End Date Flo Jackson MD PCP - General Family Medicine 04/25/14 documented as of this encounter
--- OUTSIDE RECORDS SUMMARY | 2023-12-18 09:00 | External Medical Summary | Summary of Care ---
Author Name Unknown Organization [facility] Address [address] [place] [address] Phone [phone] Care Team Providers Care Day Treatment Clinician/Art Therapist Name Role Phone Flo Bill MD Primary Care Provider Reason for Visit * Reason Comments eRx-Medication Refill Encounter Details Date Type Department Care Team Description 06/27/2023 Refill Family Medicine [address] [place] [phone] Flo Bill MD [address] [place] [address] [place] [address] Primary hypertension Allergies No known active allergiesdocumented as of this encounter (statuses as of 06/28/2023) Medications Medication Sig Dispensed Refills Start Date [...] for Pain. 180 Tab 1 08/23/2020 Active Chlorthalidone 25 MG Oral Tablet (Hygroton)Indicati [...] EVERY DAY 30 Tablet 0 06/26/2023 Active Atenolol 25 MG Oral Tablet (Tenormin)Indicati ons:Primary hypertension TAKE 1 TABLET BY MOUTH EVERY DAY IN THE MORNING 90 Tablet 0 06/28/2023 Active Atenolol 25 MG Oral Tablet (Tenormin)Indicati ons:Primary hypertension TAKE ONE TABLET BY MOUTH DAILY IN THE MORNING 90 Tablet 1 07/03/2022 3 Discontinued documented as of this encounter (statuses as of 06/28/2023) Active Problems Problem Noted Date BMI 32.0-32.9,adult 08/23/2020 Obstructive sleep apnea 12/09/2018 Overview: Dr Bell Dyslipidemia, goal LDL below 130 011 Primary hypertension 08/08/2009 Overview: Modified per HTN protocol #16. LUMBAGO 03/16/2006 ADVANCE DIRECTIVE INFORMATION 02/26/2006 Overview: No, Advance Directive brochure given to patient at prior appointment. DDD (degenerative disc disease), lumbosa cral documented as of this encounter (statuses as of 06/28/2023) Resolved Problems Problem Noted Date Resolved Date Acute bilateral low back pain without sciatica 1 10/05/2015 08/06/2017 BMI 34.0-34.9,adult 04/21/2013 08/23/2019 Dyslipidemia, goal to be determined 12/16/2004 12/31/2010 HYPERTENSION NOS 08/08/2009 Overview: Modified per HTN protocol #16. Allergic rhinitis 08/06/2017 documented as of this encounter (statuses as of 06/28/2023) Immunizations Name Administration Dates Next Due COVID-19 [...] encounter Miscellaneous Notes * Telephone Encounter - Azul Armstrong [facility] - 06/28/2023 1:47 PM EDTSigned Prescriptions: Disp Refills Atenolol 25 MG Oral Tablet (Tenormin) 90 Tab*0 Sig: TAKE 1 TABLET BY MOUTH EVERY DAY IN THE MORNINGAuthorizing Provider: FLO BILL User: AZUL ARMSTRONG * Telephone Encounter - Azul Armstrong RPh - 06/28/2023 1:46 PM EDT RX authorized. Zero refills given until upcoming appointment 07/13. Thanks, Azul Armstrong PharmD Clinical Pharmacist [facility] ([facility]) (formerly Telepharmacy). [phone] 06/28/2023, 1:46 PM documented in this encounter Plan of Treatment Upcoming Encounters Date Type Specialty Care Team Description 07/13/2023 Office Visit Family Medicine Flo Bill MD [address] [place] [address] Dr [place], [place] [address] Health Maintenance Due Date Last Done Comments Hepatitis B (1 of 3 - 3-dose series) 1966 HIV Screening 1981 Cologuard 12/24/2011 Fecal Occult Blood Test 12/24/2011 Sigmoidoscopy 12/24/2011 Depression Screening 08/23/2021 08/23/2020 GFR 11/10/2022 11/10/2021, 04/2020, 08/23/2019, Additional history exists COVID-19 Vaccine ( season) 2023 12/20/2021, 05/21/2021, 10/02/2020, Additional history exists Albumin/Creatinine Ratio 11/10/2024 11/10/2021, 05/2020 Diabetes Screening 11/10/2024 11/10/2021, 1 10/29/2019, 08/23/2019, Additional history exists Lipid Panel 11/10/2026 11/10/2021, 04/2020, 08/23/2019, Additional history exists DTaP,Tdap,and Td Vaccines (3 - Td or Tdap) 07/30/2028 07/30/2018, 01/11/2008 Colonoscopy 03/04/2029 03/04/2019 Colorectal Cancer Screening 03/04/2029 Zoster Vaccines Completed 10/02/2021, 08/01/2021 Influenza Vaccine (FLU shot) Completed 03/2023, 06/28/2022, 07/21/2021, Additional history exists GARDASIL-HPV IMMUNIZATION SERIES Aged [...] Diagnoses Diagnosis Primary hypertension Unspecified essential hypertension documented in this encounter Care Teams Day Treatment Clinician/Art Therapist Relationship Specialty Start Date End Date Flo Bill MD PCP - General Family Medicine 04/25/14 documented as of this encounter
--- OUTSIDE RECORDS SUMMARY | 2023-12-18 09:00 | External Medical Summary ---
Author Name Unknown Address Unknown Organization [id number][place] [facility] [place] [address] [facility] [place] [address] Laboratory Report Ordering Provider Test Date Status NAEEM BARNETT 07/09/2023 13:15:49 Final Observation Date Value Abnormality Reference (Units ) Status BUN 07/09/2023 13:15:49 18 6-20 (mg/dL) Final Creatinine 07/09/2023 13:15:49 1.0 0.6-1.2 (mg/dL) Final Glomerular filtration rate/1.73 sq M.predicted [Volume Rate/Area] in Serum, Plasma or Blood by Creatinine-based formula (CKD-EPI) 07/09/2023 13:15:49 >90 >=60 (mL/min) Final eGFR is calculated based on the CKD-EPI 2020 equation SODIUM 07/09/2023 13:15:49 138 135-146 (m mol/L) Final Potassium 07/09/2023 13:15:49 4.6 3.5-5.1 (m mol/L) Final Cl 07/09/2023 13:15:49 101 98-107 (mm ol/L) Final CO2 07/09/2023 13:15:49 26 22-32 (mmo l/L) Final Anion gap 07/09/2023 13:15:49 11 7-15 (mmol /L) Final Glucose 07/09/2023 13:15:49 99 70-120 (mg /dL) Final Albumin 07/09/2023 13:15:49 4.6 3.8-5.0 (g /dL) Final AST (Aspartate aminotransferase) 07/09/2023 13:15:49 26 10-50 (U/L) Final Alk Phos 07/09/2023 13:15:49 48 35-130 (U/ L) Final Bilirubin, Total 07/09/2023 13:15:49 0.5 <=1 .2 (mg/dL) Final Calcium 07/09/2023 13:15:49 9.6 8.4-10.2 ( mg/dL) Final Protein 07/09/2023 13:15:49 6.9 6.0-8.3 (g /dL) Final ALT (Alanine aminotransferase) 07/09/2023 13:15:49 31 10-50 (U/L) Final Performing Location [facility] [place] [facility][note 2] [address] [facility] [address]
--- OUTSIDE RECORDS SUMMARY | 2023-12-18 09:00 | External Medical Summary ---
Author Name Unknown Address Unknown Organization [id number]:[facility] [place] [address] [facility] [address] Laboratory Report Ordering Provider Test Date Status NAEEM BARNETT 07/09/2023 13:15:49 Final Observation Date Value Abnormality Reference (Units ) Status Triglyceride 07/09/2023 13:15:49 79 <=174 ( mg/dL) Final Triglyceride Reference Range s (mg/dL):
<150 Acceptable
150-174 Borderline high
175-499 High
>=500 Very high Cholesterol 07/09/2023 13:15:49 133 <200 (mg /dL) Final Total Cholesterol Reference Ranges (mg/dL):
<200 Desirable
200-239 Borderline high
>=240 High HDL 07/09/2023 13:15:49 47 >39 (mg/dL ) Final HDL Cholesterol Reference Ra nges (mg/dL):
>=60 High (Desirable)
<50 Low (Undesirable) For Females
<40 Low (Undesirable) For Males NON-HDL CHOLESTEROL 07/09/2023 13:15:49 86 <=159 (mg/dL) Final Non-HDL Cholesterol Referenc e Range (mg/dL):
<100 Target level for high risk ASCVD patient
<130 Optimal for general population
130-159 Near optimal for general population
160-189 Borderline High
190-219 High
>=220 Very High LDL, (calculated) 07/09/2023 13:15:49 70 <= 129 (mg/dL) Final LDL Cholesterol Reference Ra nges (mg/dL):
<70 Target level for high risk ASCVD patient
<100 Optimal for general population
100-129 Near optimal for general population
130-159 Borderline high
160-189 High
>=190 Very high Performing Location LAB[facility]ORY [facility] [place] - [address] [facility] [address]
--- OUTSIDE RECORDS SUMMARY | 2023-12-18 09:00 | External Medical Summary | Summary of Care ---
Author Name Unknown Organization [facility] Address [address] [facility] [place] [address] Phone [phone] Care Team Providers Care Cad Librarian Name Role Phone Flo Bill MD Primary Care Provider Reason for Visit * Reason Comments eRx-Medication Refill Encounter Details Date Type Department Care Team Description 03/11/2023 Refill Family Medicine [address] [place] [phone] Flo Bill MD [address] [place] [address] [place] [address] Primary hypertension Allergies No known active allergiesdocumented as of this encounter (statuses as of 07/08/2023) Medications Medication Sig Dispensed Refills Start Date [...] THE MORNING 90 Tablet 1 07/03/2022 Active Atenolol 25 MG Oral Tablet (Tenormin)Indicati ons:Primary hypertension TAKE ONE TABLET BY MOUTH DAILY IN THE MORNING 90 Tablet 1 07/03/2022 3 Discontinued Enalapril Maleate 10 MG Oral Tablet (Vasotec)Indicatio ns:Primary hypertension Take 3 Tablets (30 mg) by mouth in the morning. TAKE ONE TABLET BY MOUTH DAILY. 270 Tablet 1 08/29/2022 3 Discontinued Enalapril Maleate 20 MG Oral Tablet ([employer]otec)Indicatio ns:Primary hypertension One daily with 10 mg for total dose of 30 mg 90 Tablet 1 09/11/2022 3 Discontinued Simvastatin 20 MG Oral Tablet (Zocor)Indications :Dyslipidemia, [...] as of this encounter (statuses as of 07/08/2023) Active Problems Problem Noted Date BMI 32.0-32.9,adult 08/23/2020 Obstructive sleep apnea 12/09/2018 Overview: Dr Bell Dyslipidemia, goal LDL below 130 011 Primary hypertension 08/08/2009 Overview: Modified per HTN protocol #16. LUMBAGO 03/16/2006 ADVANCE DIRECTIVE INFORMATION 02/26/2006 Overview: No, Advance Directive brochure given to patient at prior appointment. DDD (degenerative disc disease), lumbosa cral documented as of this encounter (statuses as of 07/08/2023) Resolved Problems Problem Noted Date Resolved Date Acute bilateral low back pain without sciatica 1 10/05/2015 08/06/2017 BMI 34.0-34.9,adult 04/21/2013 08/23/2019 Dyslipidemia, goal to be determined 12/16/2004 12/31/2010 HYPERTENSION NOS 08/08/2009 Overview: Modified per HTN protocol #16. Allergic rhinitis 08/06/2017 documented as of this encounter (statuses as of 07/08/2023) Immunizations Name Administration Dates Next Due COVID-19 [...] encounter Miscellaneous Notes * Telephone Encounter - Stephanie Rodriguez CPhT - 07/08/2023 1:08 PM EDT Received message from [facility] regarding patient needing labs. Placed call to patient to advise. Pt was agreeable to have labs drawn but would prefer to walk-in at their convenience. Thank you, Stephanie Rodriguez [facility] Marketing Professional III Centralized Clinical Pharmacy Services([facility]PS) (formerly Telepharmacy) 07/08/2023,1:08 PM * Telephone Encounter - Alex Pederson [facility] - 03/12/2023 11:53 AM EDTSigned Prescriptions: Disp Refills Enalapril Maleate 20 MG Oral Tablet (Vasot*90 Tab*0 Sig: ONE DAILY WITH 10 MG FOR TOTAL DOSE OF 30 MG Authorizing Provider: FLO BILL Ordering User: ALEX PEDERSON Enalapril Maleate 10 MG Oral Tablet (Vasot*90 Tab*0 Sig: TAKE 1 TABLET BY MOUTH EVERY DAY Authorizing Provider: FLO BILL Ordering User: ALEX PEDERSON * Telephone Encounter - Alex Pederson [facility] - 03/12/2023 11:51 AM EDT Provided 90 days supply with 0 refill. Per refill protocol patient should have BMP,ALBU/CR,Lipid panel on file within past year. Reviewed AMP [...] (telemedicine) Next Visit: Visit date not found Thank you, Alex Pederson, PharmD Clinical Pharmacist Centralized Clinical Pharmacy Services ([facility]PS) (Formerly Telepharmacy) [phone] 03/12/2023, 11:51 AM documented in this encounter Plan of Treatment Upcoming Encounters Date Type Specialty Care Team Description 07/13/2023 Office Visit Family Medicine Flo Bill MD [address] [place] [address] [place] [address] Health Maintenance Due Date [...] hypertension documented in this encounter Care Teams Cad Librarian Relationship Specialty Start Date End Date Flo Bill MD PCP - General Family Medicine 04/25/14 documented as of this encounter
--- OUTSIDE RECORDS SUMMARY | 2023-12-18 09:00 | External Medical Summary ---
Author Name Unknown Address Unknown Organization [id number]:[facility] - [facility] [address] [facility] [address] [facility] [address] Laboratory Report Ordering Provider Test Date Status NAEEM BARNETT 07/09/2023 13:15:49 Final Observation Date Value Abnormality Reference (Units ) Status WBC, Total 07/09/2023 13:15:49 7.11 4.00-10.80 (K/uL) Final RBC 07/09/2023 13:15:49 5.75 4.50-5.25 (M/uL) Final Hemoglobin 07/09/2023 13:15:49 16.6 14.0-16.8 (g/dL) Final HCT 07/09/2023 13:15:49 51.3 Above high normal 40.0-48.4 (%) Final MCV 07/09/2023 13:15:49 89.2 82.0-99.5 (fL) Final MCH 07/09/2023 13:15:49 28.9 27.0-34.0 (pg) Final MCHC 07/09/2023 13:15:49 32.4 32.0-36.0 (g/dL) Final RDW 07/09/2023 13:15:49 13.3 11.5-15.5 (%) Final Platelets 07/09/2023 13:15:49 249 140-400 (K/uL) Final MPV 07/09/2023 13:15:49 11.2 6.6-11.1 (fL) Final Nucleated erythrocytes/100 leukocytes [Ratio] in Blood by Automated count 07/09/2023 13:15:49 0 <=0 (/100 WBCs) Final Performing Location [facility] [address] [facility] [address]
--- OUTSIDE RECORDS SUMMARY | 2023-12-18 09:00 | External Medical Summary | Summary of Care ---
Author Name Unknown Organization [facility] Address [address] [facility] [place] [place] [address] Phone [phone] Care Team Providers Care Radiagraph Operator Name Role Phone Flo Jackson MD Primary Care Provider [phone] Reason for Visit * Reason Onset Date Comments Advice 09/15/2023 Encounter Details Date Type Department Care Team (Late st Contact Info) Description 09/15/2023 Telephone Access Center, [place] [facility] [address] [facility] *DO NOT REMOVE THIS DEPARTMENT* [place] [address] Services, Scheduling [address] [place] [address] Advice Allergies No known active allergiesdocumented as of [...] mRNA, LNP-s, No Pre serve, 2-Dose Series ([email or web address]) 12/20/2021,05/21/2021,10/02/2020,2019 COVID-19, MRNA-LNP, 23-24, P F, 30 [...] encounter Miscellaneous Notes * Telephone Encounter - Rubina Melgoza OSA [...] PM EST [facility] [address] [place] [phone] Madai Rousseau, [address] [place] [address] 01/13/2024 4:20 PM EDT Office Visit Family Medicine [address] [place] [phone] Raul Still MD [address] [place] [address] [place] [address] Health Maintenance Due Date Last Done Comments [...] filedocumented as of this encounter Care Teams Radiagraph Operator Relationship Specialty Start Date End Date Flo Jackson MD PCP - General Family Medicine 04/25/14 documented as of this encounter
--- OUTSIDE RECORDS SUMMARY | 2023-12-18 09:00 | External Medical Summary | Summary of Care ---
Author Name Unknown Organization [facility] Address [address] [place] [address] Phone [phone] Care Team Providers Care Mother Baby Rn Name Role Phone Flo Jackson MD Primary Care Provider Reason for Visit * Reason Comments Outpatient Testing Encounter Details Date Type Department Care Team Description 07/09/2023 Laboratory Laboratory [address] [place] [phone] [facility] [address] [place] [address] Dyslipidemia, goal LDL below 130; Encounter for long-term (current) use of medications; Primary hypertension Allergies No known active allergiesdocumented as of this encounter (statuses as of 07/09/2023) Medications Medication Sig Dispensed Refills Start Date [...] 08/23/2020 Active Chlorthalidone 25 MG Oral Tablet (Hygroton)Indications [...] 06/26/2023 Active Atenolol 25 MG Oral Tablet (Tenormin)Indications :Primary hypertension TAKE 1 TABLET BY MOUTH EVERY DAY IN THE MORNING 90 Tablet 0 06/28/2023 Active documented as of this encounter (statuses as of 07/09/2023) Active Problems Problem Noted Date BMI 32.0-32.9,adult 08/23/2020 Obstructive sleep apnea 12/09/2018 Overview: Dr Bell Dyslipidemia, goal LDL below 130 011 Primary hypertension 08/08/2009 Overview: Modified per HTN protocol #16. LUMBAGO 03/16/2006 ADVANCE DIRECTIVE INFORMATION 02/26/2006 Overview: No, Advance Directive brochure given to patient at prior appointment. DDD (degenerative disc disease), lumbosa cral documented as of this encounter (statuses as of 07/09/2023) Resolved Problems Problem Noted Date Resolved Date Acute bilateral low back pain without sciatica 1 10/05/2015 08/06/2017 BMI 34.0-34.9,adult 04/21/2013 08/23/2019 Dyslipidemia, goal to be determined 12/16/2004 12/31/2010 HYPERTENSION NOS 08/08/2009 Overview: Modified per HTN protocol #16. Allergic rhinitis 08/06/2017 documented as of this encounter (statuses as of 07/09/2023) Immunizations Name Administration Dates Next Due COVID-19 mRNA, LNP-s, No Pre serve, 2-Dose Series ([employer]) 12/20/2021,05/21/2021,10/02/2020,2019 SEASONAL INFLUENZA, PF, 6 M & [...] Office Visit Family Medicine Flo Jackson MD [address] [place] [address] [place] [address] Pending Results Name Type Priority Associated Diagnoses Date /Time LIPID PANEL WITH DIRECT LDL IF TG IS HIGH Lab Routine Dyslipidemia, goal LDL below 130 Encounter for long-term (current) use of medications 07/09/2023 1:15 PM EDT COMPREHENSIVE METABOLIC PANEL Lab Routine Primary hypertension Encounter for long-term (current) use of medications 07/09/2023 1:15 PM EDT CBC Lab Routine Encounter for long-term (current) use of medications 07/09/2023 1:15 PM EDT Health Maintenance Due Date Last Done [...] LDL below 130 Other and unspecified hyperlipidemia Encounter for long-term (current) use of medications Encounter for long-term (current) use of other medications Primary hypertension Unspecified essential hypertension documented in this encounter Care Teams Mother Baby Rn Relationship Specialty Start Date End Date Flo Jackson MD PCP - General Family Medicine 04/25/14 documented as of this encounter
[2023-12-18] MEDS: ENOXAPARIN INJ 40 MG/0.4 ML SYR SQ SCH (09:20)
[2023-12-18] MEDS: THIAMINE HCL 100 MG in SYRINGE 9 ML IV SCH (09:24)
[2023-12-18] MEDS: ATENOLOL 25 MG TABLET PO SCH (09:53)
--- NOTE | 2023-12-18 10:29 | Urology Progress Note ---
Date of Service December 18, 2023 Assessment & Plan (1) Abscess: (2) Sepsis: Plan: Follow-up of sepsis, perirectal abscess Afebrile this morning; tachycardia, but otherwise stable vitals Labs reviewedcreatinine improved to 1.28, WBC 18.83, hemoglobin 8.2 Blood cultures showing Gram positive cocci, BioFire showing MRSA Urine culture with pinpoint growth, re-incubating Currently on vancomycin and Zosyn CT scan showing a fluid collection in the pelvis that appears to be perirectal rather than prostatic Does not appear to be amenable to transurethral procedure Based on CT, he may be a candidate for transrectal drainage by IR or may need more formal surgical intervention with general/colorectal surgery General surgery and ID consulted Continue broad-spectrum antibiotic coverage and supportive care Sepsis may be secondary to cavitary pneumonia, osteomyelitis, pelvic/perirectal gas/fluid collection Consider repeat imaging of the pelvis to evaluate for any progression of collection if worsening clinical status will sign off, please contact our service with any additional questions Admission and Anticipated Discharge Date Admission Date: December 17, 2023 Subjective Patient seen and examined at bedside this morning He is awake, alert and sitting up in bed, in no acute distress Reports pain in his right leg and knee He denies scrotal, perineal, rectal discomfort Duffy patent and draining clear yellow urine Denies nausea, vomiting, fever or chills at present Review of Systems Constitutional: as per Subjective / HPI Gastrointestinal: as per Subjective / HPI Genitourinary: + as per Subjective / HPI Physical Exam Constitutional: + obese; no acute distress Respiratory: normal respiratory effort; no respiratory distress and no labored breathing Cardiovascular: Rate/Rhythm: + tachycardic Gastrointestinal (Abdomen): Inspection/Auscultation: abdomen normal to inspection Musculoskeletal: Head/Neck/Chest: normocephalic Neurologic: moves all extremities and awake Psychiatric: Orientation: alert and oriented x 3 Genitourinary: Duffy patent and draining clear yellow urine Perineum without significant erythema, no tenderness Results & Data Vital Signs (Past 12 Hours) Vital Signs Temp Pulse Pulse Resp BP BP Pulse Ox 12/18/23 08:37 36.8 C 12/18/23 08:00 100 H 12/18/23 07:08 100 H 12/18/23 07:00 101/47 L 12/18/23 07:00 104 H 22 95 12/18/23 07:00 37.0 C 12/18/23 06:00 96 H 25 H 98 12/18/23 06:00 37.9 C H 12/18/23 05:00 144/87 H 12/18/23 05:00 113 H 23 95 12/18/23 04:00 139/79 12/18/23 04:00 103 H 24 12/18/23 04:00 36.8 C 12/18/23 03:00 135/69 12/18/23 03:00 104 H 23 96 12/18/23 02:01 114/79 12/18/23 02:01 98 H 20 96 12/18/23 02:00 105 H 24 96 12/18/23 02:00 37.4 C 12/18/23 01:00 121/82 12/18/23 01:00 124 H 25 H 94 12/18/23 00:01 143/80 H 12/18/23 00:01 122 H 27 H 96 12/18/23 00:00 122 H 30 H 94 12/18/23 00:00 99 H 12/18/23 00:00 38.0 C H 12/17/23 23:23 37.5 C 115 H 20 151/80 H 94 12/17/23 23:01 137/77 12/17/23 23:01 120 H 32 H 95 12/17/23 23:00 119 H 30 H 96 12/17/23 23:00 37.2 C 12/17/23 22:55 145/94 H 12/17/23 22:55 102 H 21 95 12/17/23 22:27 83/71 L 12/17/23 22:27 120 H 34 H 93 O2 Del Method 12/18/23 08:37 12/18/23 08:00 12/18/23 07:08 12/18/23 07:00 12/18/23 07:00 Room Air 12/18/23 07:00 12/18/23 06:00 12/18/23 06:00 12/18/23 05:00 12/18/23 05:00 12/18/23 04:00 12/18/23 04:00 12/18/23 04:00 12/18/23 03:00 12/18/23 03:00 12/18/23 02:01 12/18/23 02:01 12/18/23 02:00 12/18/23 02:00 12/18/23 01:00 12/18/23 01:00 12/18/23 00:01 12/18/23 00:01 12/18/23 00:00 12/18/23 00:00 12/18/23 00:00 12/17/23 23:23 Room Air 12/17/23 23:01 12/17/23 23:01 12/17/23 23:00 12/17/23 23:00 12/17/23 22:55 12/17/23 22:55 12/17/23 22:27 12/17/23 22:27 PG Care Time/CCT Total # of Minutes Spent Total Time Spent with Patient: Total time spent is greater than 50% in coordination of care (as documented) at patient's floor/unit and/or counseling patient: Coding Level of Care Code 91627 SUB INP/OBS CARE 10/15MIN Diagnoses Abscess L02.91 Sepsis A41.9
--- NOTE | 2023-12-18 10:43 | Pharmacy Report ---
Pharmacy PK ABX Note - Date of Service December 18, 2023 - Assessment and Plan Assessment 57 year old M receiving vancomycin and zosyn for treatment of perirectal abscess and bacteremia with possible osteomyelitis. Blood cultures (+) GPCC. Blood biofire (+) MRSA. (+) DICK on arrival - SCr down-trending (2.19-->1.49-->1.28). ID consulted. Day #2 of antimicrobial therapy. Plan Vancomycin * Loading dose: 2000 mg IV x 1 * Maintenance dose: 1000 mg IV every 12 hours * Regimen is predicted to achieve target AUC/SHARRI of 400-600 mg/L.hr * Will obtain a level tomorrow AM with AM labs given severity of infection and unstable renal function. Pharmacy will continue to follow and will adjust dose/frequency as necessary. Thank you. Pharmacy has transitioned to AUC monitoring for vancomycin. AUC/SHARRI is the preferred PK/PD target and is associated with decreased risk of nephrotoxicity compared to traditional trough targets.
--- NOTE | 2023-12-18 13:50 | Infectious Disease Consult ---
Date of Consultation December 18, 2023 Assessment & Plan (1) MRSA bacteremia: (2) Abscess, perianal: (3) Cavitary lesion of lung: (4) Sepsis: (5) Lytic lesion of bone on x-ray: Plan Rogelio Barrera is a 57-year-old man with history of HTN, dyslipidemia, lumbosacral DDD, undergoing workup for R distal femur lytic lesion (seen on MRI 12/11/23, malignancy vs. ?osteomyelitis), who presents to [facility] ED on 12/17/23 with altered mental status, found to have sepsis, BCx + MRSA, and CT pelvis showing 4.1 x 2.1 cm abscess between prostate/rectum, thickening of R puborectalis sling and possible tract to perianal location c/f perianal fistula with abscess. Also found to have LLL 2.8 cm cavitary lesion with 9 mm rim. ID is consulted for MRSA bacteremia, prostatic/rectal/perianal abscess, and LLL cavitary lesion. Pt with MRSA bacteremia of unclear source. Has perirectal abscess as possible source though without Cx data from abscess though would also expect GNRs/anaerobes to be possible from such an infectious site. Would evaluate for endovascular infection and would obtain TTE. Repeat BCx daily until clear x48h to confirm clearance. Pt also has LLL cavitary lesion and R knee lytic lesion evaluating as below but unclear if involved in MRSA bacteremia. Would continue to monitor closely for s/sx of metastatic spread of MRSA infection (joint pain, back pain) with low threshold to image/evaluate. Appreciate urology and surgery evaluation. Per urology appears more perirectal than prostatic, not amenable to transurethral procedure. Per surgery recommending conservative management with abx and possible IR/transrectal drainage. Per radiology on 12/17, abscess is too small for aspiration. If persistent fevers/leukocytosis, low threshold to reimage perirectal abscess. If persistent/increasing then recommend radiology reevaluation for possible aspiration. If obtaining, please send for bacteria/fungal/AFB cultures and stains. CT also showing mild bilateral perinephric edema c/f pyelonephritis will follow UCx. LLL cavitary lesion of unclear etiology currently ddx includes malignancy, and infectious ddx including bacterial (perhaps from aspiration), fungal, and TB/NTM. Would send quantiferon, Histo UrAg, CrAg, BDG, Aspergillus Ag, Blasto Ab. If develops cough or respiratory Sx then would send sputum bacterial/Nocardia/fungal/AFB Cx and low threshold for AFB respiratory evaluation (3x sputa and MTB PCR). Septic emboli considered but less likely given solitary lesion. Currently planned for outpatient PET/CT but if becomes symptomatic and etiology remains unclear then may consider bronch/BAL. Also with R knee lytic lesion ddx including malignancy and osteomyelitis. Unclear whether this is involved in his current presentation, but low threshold to reimage. Was scheduled for an outpatient bone Bx which was missed. Would continue IV vancomycin for the MRSA bacteremia. Given septic shock and perirectal abscess, would continue pip-tazo for now. Unfortunately no culture data from perirectal abscess to guide therapy as GNRs/anaerobes are possible may consider narrowing (e.g., ceftriaxone/metronidazole) in the coming days. ID Problem List: 1.MRSA bacteremia 2.Prostatic/rectal/perianal abscess - 4.1 x 2.1 cm abscess between prostate/rectum, thickening of R puborectalis sling and possible tract to perianal location c/f perianal fistula with abscess 3.Left lower lobe cavitary lesion of lung 4.R knee lytic lesion 5.Possible UTI/pyelonephritis 6.Sepsis Recommendations: - Continue IV vancomycin (dosing per Rx) - Continue pip-tazo 4.5 IV q8h for now - Obtain TTE - Repeat BCx daily until clear x48h - If persistent fevers/leukocytosis, low threshold to reimage perirectal abscess. If persistent/increasing then recommend radiology reevaluation for possible aspiration. If obtaining, please send for bacteria/fungal/AFB cultures and stains. - Given LLL cavitary lesion, send quantiferon, Histo UrAg, CrAg, BDG, Aspergillus Ag, Blasto Ab - If develops cough or respiratory Sx then would send sputum bacterial/Nocardia/fungal/AFB Cx and low threshold for AFB respiratory evaluation (3x sputa and MTB PCR) - Current planned for outpatient PET/CT to further evaluate LLL cavitation - Would continue to monitor closely for s/sx of metastatic spread of MRSA infection (joint pain, back pain) with low threshold to image/evaluate - F/u 12/16 UCx, BCx ID will continue to follow, but does not monitor the chart or round over the weekend; covering physician can be contacted at [phone] ([facility] call center) for telephonic consultation if needed. Dr. Emani Espinoza will resume care of the ID service on Thursday. Radha Flannery MD, S Infectious Diseases [facility] direct line: [phone] Consultation Information This patient recommendation is based on a telemedicine consult request which was completed asynchronously through chart review and information provided by the primary physician. The patient was not seen or examined today. The evaluation is consultative in nature and all patient care and treatment decisions can either be accepted or rejected by the patient's primary hospital-based treating physician using their own independent medical judgment for their patient. [employer] contact information: Please call [facility] Call Center . (Phone Number For Physician Use Only) PLEASE NOTE: E-consult was performed for this visit given that no telepresenter was available today. Time Spent Reviewing Chart: 31+ minutes History of Present Illness Reason for Consultation: MRSA bacteremia, prostatic/rectal/perianal abscess, and LLL cavitary lesion. Attending Physician: Henrique Jean MD History of Present Illness PLEASE NOTE: E-consult was performed for this visit given that no telepresenter was available today. Rogelio Barrera is a 57-year-old man with history of HTN, dyslipidemia, lumbosacral DDD, undergoing workup for R distal femur lytic lesion (seen on MRI 12/11/23, malignancy vs. ?osteomyelitis), who presents to [facility] ED on 12/17/23 with altered mental status, found to have sepsis, BCx + MRSA, and CT pelvis showing 4.1 x 2.1 cm abscess between prostate/rectum, thickening of R puborectalis sling and possible tract to perianal location c/f perianal fistula with abscess. Also found to have LLL 2.8 cm cavitary lesion with 9 mm rim. ID is consulted for MRSA bacteremia, prostatic/rectal/perianal abscess, and LLL cavitary lesion. The patient was evaluated by Dr. Sebas Sheridan of orthopedic oncology at [facility] on 12/15 for R distal thigh/knee pain. Right femur x-ray consistent with lytic bone lesion of right distal femoral metaphysis and epiphysis. 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 Per radiology, also possibility of osteomyelitis. It was recommended that patient would have a biopsy, which was scheduled for December 18, 2023. The patient was noted by the pts brother to be very irritable after his appt. On 12/16 the pts brother found the pt in bed and was not arousable, not opening eyes or responding to voice, prompting presentation to the ED on 12/16. In the ED, T38.1, WBC 25.He was started on vancomycin/cefepime/metronidazole -> vancomycin and pip-tazo. BCx + GPCs in clusters (BCID + MRSA). CT pelvis showed 4.1 x 2.1 cm abscess between prostate/rectum, thickening of R puborectalis sling and possible tract to perianal location c/f perianal fistula with abscess. CT chest without contrast shows 2.8 cm left lower lobe cavitary lesion with 9 mm rim, with no significant mediastinal lymphadenopathy. Pt is planned for outpatient PET/CT for LLL cavitary lesion. He has been evaluated by general surgery and urology with recommendation for continuing abx. Per radiology unable to aspirate abscess. 12/17 T38.4. WBC improving to 18. Allergies Allergy/AdvReac Type Severity Reaction Status Date / Time No Known Allergies Allergy Unverified 12/17/23 15:30 Home Medications Medication Instructions Recorded Confirmed Type atenolol 25 mg tablet 25 mg PO QAM 12/17/23 12/17/23 History chlorthalidone 25 mg tablet 25 mg PO QAM 12/17/23 12/17/23 History enalapril maleate 10 mg tablet 10 mg PO QAM 12/17/23 12/17/23 History enalapril maleate 20 mg tablet 20 mg PO QAM 12/17/23 12/17/23 History naproxen 500 mg tablet 500 mg PO BID PRN Pain 12/17/23 12/17/23 History simvastatin 20 mg tablet 20 mg PO HS 12/17/23 12/17/23 History Patient History Medical History (Updated 12/18/23 @ 14:26 by Radha Flannery MD) Dyslipidemia Hypertension Social History Smoking Status: Unknown if ever smoked Second Hand Exposure: No; Do You Dip or Chew Tobacco: No; Hx Alcohol Use: No Hx Substance Use: No Preferred Language: Italian Communication Ability: Effective Automation Consultant Required: No Beliefs That Will Affect Care: None Current Living Situation: Family Feels Safe at Home: Yes Assistive Devices: Bedside Commode and Walker Results & Data Vital Signs (Past 12 Hours) Vital Signs Temp Pulse Resp BP Pulse Ox O2 Del Method 12/18/23 12:54 37.0 C 12/18/23 11:39 38.4 C H 12/18/23 11:00 140/75 12/18/23 11:00 99 H 24 94 12/18/23 10:00 129/82 12/18/23 10:00 105 H 20 92 12/18/23 09:00 152/80 H 12/18/23 09:00 115 H 24 98 12/18/23 08:37 36.8 C 12/18/23 08:00 134/65 12/18/23 08:00 103 H 22 93 12/18/23 08:00 100 H 12/18/23 07:08 100 H 12/18/23 07:00 101/47 L 12/18/23 07:00 104 H 22 95 Room Air 12/18/23 07:00 37.0 C 12/18/23 06:00 96 H 25 H 98 12/18/23 06:00 37.9 C H 12/18/23 05:00 144/87 H 12/18/23 05:00 113 H 23 95 12/18/23 04:00 139/79 12/18/23 04:00 103 H 24 12/18/23 04:00 36.8 C 12/18/23 03:00 135/69 12/18/23 03:00 104 H 23 96 12/18/23 02:01 114/79 12/18/23 02:01 98 H 20 96 12/18/23 02:00 105 H 24 96 12/18/23 02:00 37.4 C Diagnostic Findings Diagnostics: 12/16 CT chest 1. There is a 2.8 cm cavitary lesion of the base of the left lung with the rim measuring 0.9 cm. This is concerning for cavitary malignancy, less likely cavitary pneumonia. 2. Interseptal thickening could relate to atelectasis and/or pulmonary edema. 3. Minimal atherosclerotic disease. 12/16 CT Abdomen: 1. There is an abnormal gas and fluid collection loculated between the prostate gland and rectum measuring approximately 4.1 x 2.1 cm. There is also abnormal thickening within the right puborectalis sling with a possible small tubular tract extending to the right perianal location. Therefore, the abnormal gas and fluid collection located between the prostate gland and rectum may represent supralevator extension of a right-sided perianal fistula with abscess formation. Clinical correlation recommended to exclude the possibility of hydrogel placement in the setting of prior prostate radiation therapy which could also account for this abnormal gas and fluid collection posterior to the prostate gland. 2. Mild bilateral perinephric edema. This may be chronic. Recommend correlation with urinalysis to exclude the possibility of a pyelonephritis. 3. Distended gallbladder. No gallbladder wall thickening. 4. Bilateral renal hypodense lesions. These are technically indeterminate on this study but favor cysts. Follow-up nonemergent renal ultrasound recommended for confirmation. 5. A 2.4 cm thick-walled cavitary focus within the base of the left lower lobe. This could represent a cavitary pneumonia. However, [address] follow-up recommended to ensure resolution. 6. Additional findings as described above. Micro Summary: BCx: 12/17 BCx x2: pending 12/16 BCx x2: 3 of 4 + GPCs in clusters (BCID + MRSA) 12/17 BDG: p 12/17 Aspergillus Ag: p 12/17 CrAg: p 12/16 MRSA nares: positive 12/16 Respiratory pathogen panel: neg 12/16 UCx: pinpoint growth, reincubating Antibiotic Summary: vancomycin (12/16 present) pip-tazo (12/16 present) prior cefepime (12/16) metronidazole (12/16)
[2023-12-18] MEDS: MoRPHine SULFATE 2 MG/ML CARP IV PRN (16:56)
[2023-12-19 04:29] LABS: Basophils # (auto) 0.07 K/uL (0.00-0.20); Basophils % (auto) 0.4 %; Eosinophils # (auto) 0.09 K/uL (0.00-0.50); Eosinophils % (auto) 0.5 %; Hematocrit (blood only) 22.2 % (42.0-52.0); Hemoglobin 7.4 g/dl (14.0-18.0); Immature Granulocytes % (auto) 1.8 %; Mean Corpuscular Hemoglobin 26.1 pg (25.0-34.0); Mean Corpuscular Hgb Conc 33.3 g/dL (32.0-36.0); Mean Corpuscular Volume 78.4 fL (80.0-100.0); Monocytes # (auto) 1.42 K/uL (0.11-0.59); Monocytes % (auto) 8.6 %; Neutrophils # (auto) 13.22 K/uL (1.40-6.50); Neutrophils % (auto) 79.7 %; Platelet Count 519 K/uL (130-400); RDW Coefficient of Variation 14.6 % (11.5-14.5); Red Blood Count 2.83 M/uL (4.70-6.10)
[2023-12-19] MEDS: VANCOMYCIN LEVEL ONE (04:56)
[2023-12-19 04:57] LABS: BUN Creatinine Ratio 16.8 (10-20); Calcium 8.1 mg/dl (8.6-10.3); Creatinine Clr Calc Pharmacy 95.3 ml/min; Est GFR (African American) 103.3 ml/min; Est GFR (Non-African American) 89.1 ml/min; Magnesium 1.8 mg/dl (1.7-2.4); Phosphorus 2.7 mg/dl (2.5-4.9); Potassium 4.1 mmol/L (3.5-5.1)
[2023-12-19 05:29] LABS: Polychromasia 1+; Rouleaux 1+
--- NOTE | 2023-12-19 06:22 | Surgery Progress Note ---
Date of Service December 19, 2023 Assessment & Plan (1) Abscess, perianal: Plan: Patient previously evaluated by the [facility] general surgery service. They have reviewed patient's CT scan with interventional radiology as well as surgical services at [facility] [place] felt that the abscess in question was too small for drainage at this time and recommended conservative management; if any drainage attempts were to be made consideration for transrectal drainage should be considered As patient continues to have febrile episodes we will discuss with attending physician if repeat imaging is warranted at this time Of note, the patient was noted to have positive blood cultures from 4patient had gram-positive cocci showing staph species with further sensitivities to follow Continue antibioticspatient is currently receiving vancomycin and Zosyn Patient has been evaluated by infectious disease who recommended continuing antibiotics as noted above as well as containing a echocardiogram and following serial blood cultures. Admission and Anticipated Discharge Date Admission Date: December 17, 2023 Supervising Physician Co-Signing Physician Notes I agree with the above assessment. While still with intermittent fevers, patient without pain and feels well. Non- toxic appearing. On antibiotics with improving leukocytosis, thrombocytosis and neutrophil shift. No acute surgical intervention, will f/u in the am Subjective Patient is resting comfortably in bed. He denies any abdominal pain. He denies any nausea or vomiting. He does note he is passing flatus and having small bowel movements and denies any pain when he does this. I discussed with with shift boss nurse attending to the patient as patient has been having febrile episodes throughout last shift. No other concerns voiced at this time Physical Exam Gastrointestinal (Abdomen): Abdomen is soft and nondistended with positive bowel sounds. There is no rebound tenderness or guarding. There is no pain with palpation Results & Data Vital Signs (Past 12 Hours) Vital Signs Temp Pulse Pulse Resp BP Pulse Ox O2 Del Method 12/19/23 03:30 38.7 C H 83 14 106/55 L 94 Room Air 12/19/23 00:00 87 12/18/23 22:30 37.8 C H 92 H 18 117/62 99 Room Air 12/18/23 20:07 Room Air 12/18/23 19:51 38.1 C H 105 H 24 115/67 97 Room Air PG Care Time/CCT Total # of Minutes Spent Total Time Spent with Patient: Total time spent is greater than 50% in coordination of care (as documented) at patient's floor/unit and/or counseling patient: Coding Level of Care Code 46300 SUB INP/OBS CARE 10/15MIN Diagnoses Abscess, perianal K61.0
--- NOTE | 2023-12-19 08:18 | Hospitalist Progress Note ---
Date of Service December 19, 2023 Assessment & Plan (1) Encephalopathy: Plan: - likely secondary to sepsis - CT head negative for any acute intracranial abnormality - UDS negative - resolved, mental status back to baseline (2) Sepsis: Plan: MRSA bacteremia Patient presents tachycardic, febrile, with temperature 38.1 C, white blood cell count 24.9 K Procalcitonin elevated Biofire - negative Blood cultures - posit. for MRSA Urine culture pending Received cefepime and vancomycin in the ED, currently on vancomycin and zosyn Cavitary lesion noted at left lower lung (on CT abd/pelvis) obtained chest CT to further evaluate - 1. There is a 2.8 cm cavitary lesion of the base of the left lung with the rim measuring 0.9 cm. This is concerning for cavitary malignancy, less likely cavitary pneumonia. 2. Interseptal thickening could relate to atelectasis and/or pulmonary edema. 3. Minimal atherosclerotic disease. Etiology of cavitary lesion is not clear. Patient is supposed to have a PET/CT done as an outpatient. ID also consulted, as below. Abscess - perirectal/periprostatic - gas and fluid collection loculated between the prostate gland and rectum measuring approximately 4.1 x 2.1 cm. poss. 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 - Discussed with urology (Dr. Turk) and gen. surgery (Dr. Simpson) - would recommend to discuss with IR for poss. drainage / poss. tertiary center for furt her eval and transfer - contacted [facility] - per IR collection too small for drainage and per surgery no need for acute surgical intervention unless IR can drain it -> therefore no need for transfer, they agree with ICU admission and further work up and treatment of sepsis - cont. broad spectrum antibiotics, ID consulted Recommendations: - Continue IV vancomycin (dosing per Rx) - Continue pip-tazo 4.5 IV q8h for now - Obtain TTE - as below - no vegetations - Repeat BCx daily until clear x48h - If persistent fevers/leukocytosis, low threshold to reimage perirectal abscess. If persistent/increasing then recommend radiology reevaluation for possible aspiration. If obtaining, please send for bacteria/fungal/AFB cultures and stains. - Given LLL cavitary lesion, send quantiferon, Histo UrAg, CrAg, BDG, Aspergillus Ag, Blasto Ab - If develops cough or respiratory Sx then would send sputum bacterial/Nocardia/fungal/AFB Cx and low threshold for AFB respiratory evaluation (3x sputa and MTB PCR) - Current planned for outpatient PET/CT to further evaluate LLL cavitation - Would continue to monitor closely for s/sx of metastatic spread of MRSA infe ction (joint pain, back pain) with low threshold to image/evaluate - F/u 12/16 UCx, BCx Echo - w/o vegetations, LV is normal in size. Mild concentric LVH. No regional wall motion abnormalities noted. EF 60 to 65%. There is no visualized valvular vegetation within limitations of transthoracic study of fair technical quality. (3) DICK (acute kidney injury): Plan: - Cr elevated at 2.2, likely secondary to sepsis - cont. to closely monitor renal function, urine output - avoid nephrotoxic agents - Cr now improved to 0.9 (4) Hyponatremia: Plan: - with hypochloremia - received IVF NS in the ED - pt seemed dehydrated - cont. to closely monitor BMP - Na improved, Cl level improved AGMA - likely secondary to lactic acidosis - lactate improved after IVF - cont. to monitor - resolved, cont. to monitor Anemia - Hgb 9.0 on admission >> 7.4 - cont. to monitor H&H - FOBT - peripheral smear Admission and Anticipated Discharge Date Admission Date: December 17, 2023 Subjective Pt seen in follow up of AMS, sepsis Mental status back to baseline - pt is alert and oriented, does not remember much of when he came to the hospital Blood cultx positive for MRSA Surgery, urology ID consulted Pt reports feeling well overall besides R leg pain which he has had for some time No chest pain, shortness of breath, no abd. pain, n/v. Review of Systems Review of Systems: All systems reviewed & are unremarkable except as noted in Subjective Physical Exam Physical Exam: Constitutional: WD/WN, vitals as a celia Eyes: PERRL, conjunctiva e normal, anicteri c sclerae ENMT: external ear and n ose normal, oropha rynx normal Neck: normal visual insp ection Respiratory: normal respiratory effort, lungs shreyas ar to auscultation Cardiovascular: RRR, no murmur, no edema Chest (Breasts): Chest: normal insp ection of chest Gastrointestinal ( Abdomen): normal bowel sound s, soft, nontender , Musculoskeletal: Head/Neck/Chest: n ormocephalic and h ead atraumatic R k nee mild edema, no erythema, moves e xtremities Skin: no rashes, warm an d dry Neurologic: awake, alert, cedric ented, answers catrachito ropriately, speech fluent, no facial asymmetry, moves extremities Results & Data Results & Data Vital Signs (Past 12 Hours) Vital Signs Temp Pulse Pulse Resp BP Pulse Ox O2 Del Method 12/19/23 06:31 36.8 C 12/19/23 03:30 38.7 C H 83 14 106/55 L 94 Room Air 12/19/23 00:00 87 12/18/23 22:30 37.8 C H 92 H 18 117/62 99 Room Air Laboratory Results 12/19/23 12/18/23 12/18/23 Range/Units 04:11 12:35 12:21 WBC 16.60 H (4.8-10.8) K/ul RBC 2.83 L (4.70-6.10) M/uL Hgb 7.4 L (14.0-18.0) g/dl Hct 22.2 L (42.0-52.0) % MCV 78.4 L (80.0-100.0) fL MCH 26.1 (25.0-34.0) pg MCHC 33.3 (32.0-36.0) g/dL RDW Std Deviation 42.0 (36.4-46.3) fL RDW Coeff of Xavier 14.6 H (11.5-14.5) % Plt Count 519 H (130-400) K/uL MPV 9.0 L (9.4-12.4) fL Immature Gran % (Auto) 1.8 % Neut % (Auto) 79.7 % Lymph % (Auto) 9.0 % [place] % (Auto) 8.6 % Eos % (Auto) 0.5 % Baso % (Auto) 0.4 % Neut # (Auto) 13.22 H (1.40-6.50) K/uL Lymph # (Auto) 1.50 (1.20-3.40) K/uL [place] # (Auto) 1.42 H (0.11-0.59) K/uL Eos # (Auto) 0.09 (0.00-0.50) K/uL Baso # (Auto) 0.07 (0.00-0.20) K/uL Immature Gran # (Auto) 0.30 H (0.01-0.20) K/uL Polychromasia 1+ Rouleaux 1+ Sodium 130 L (136-145) mmol/L Potassium 4.1 (3.5-5.1) mmol/L Chloride 99 (98-107) mmol/L Carbon Dioxide 23 (21-32) mmol/L Anion Gap 8 (3-11) BUN 16 (6-23) mg/dl Creatinine 0.95 D (0.6-1.4) mg/dl Est Cr Clr Drug Dosing 95.3 ml/min Est GFR ( Amer) 103.3 ml/min Est GFR (Non-Af Amer) 89.1 ml/min BUN/Creatinine Ratio 16.8 (10-20) Glucose 116 H (70-99(Fasting)) mg/dl POC Glucose (70-99) mg/dl Calcium 8.1 L (8.6-10.3) mg/dl Phosphorus 2.7 (2.5-4.9) mg/dl Magnesium 1.8 (1.7-2.4) mg/dl Random Vancomycin 12.6 (10-20) mcg/ml Cryptococcus Source Pending Cryptococcal Ag (Latex) Pending U Histopl Galactoman Ag Pending A. galactomannan Ag Pending A. galactomannan Ag Idx Pending Beta-(1,3)-D-Glucan Pending B-(1,3)-D-Glucan Intrp Pending Miscellaneous Test Pending 12/18/23 Range/Units 11:44 WBC (4.8-10.8) K/ul RBC (4.70-6.10) M/uL Hgb (14.0-18.0) g/dl Hct (42.0-52.0) % MCV (80.0-100.0) fL MCH (25.0-34.0) pg MCHC (32.0-36.0) g/dL RDW Std Deviation (36.4-46.3) fL RDW Coeff of Xavier (11.5-14.5) % Plt Count (130-400) K/uL MPV (9.4-12.4) fL Immature Gran % (Auto) % Neut % (Auto) % Lymph % (Auto) % [place] % (Auto) % Eos % (Auto) % Baso % (Auto) % Neut # (Auto) (1.40-6.50) K/uL Lymph # (Auto) (1.20-3.40) K/uL [place] # (Auto) (0.11-0.59) K/uL Eos # (Auto) (0.00-0.50) K/uL Baso # (Auto) (0.00-0.20) K/uL Immature Gran # (Auto) (0.01-0.20) K/uL Polychromasia Rouleaux Sodium (136-145) mmol/L Potassium (3.5-5.1) mmol/L Chloride (98-107) mmol/L Carbon Dioxide (21-32) mmol/L Anion Gap (3-11) BUN (6-23) mg/dl Creatinine (0.6-1.4) mg/dl Est Cr Clr Drug Dosing ml/min Est GFR ( Amer) ml/min Est GFR (Non-Af Amer) ml/min BUN/Creatinine Ratio (10-20) Glucose (70-99(Fasting)) mg/dl POC Glucose 137 H (70-99) mg/dl Calcium (8.6-10.3) mg/dl Phosphorus (2.5-4.9) mg/dl Magnesium (1.7-2.4) mg/dl Random Vancomycin (10-20) mcg/ml Cryptococcus Source Cryptococcal Ag (Latex) U Histopl Galactoman Ag A. galactomannan Ag A. galactomannan Ag Idx Beta-(1,3)-D-Glucan B-(1,3)-D-Glucan Intrp Miscellaneous Test Medications Administered Current Inpatient Medications Atenolol (Atenolol 25 Mg Tablet) 25 mg PO QAM [facility] Stop: 01/17/24 09:14 Last Admin: 12/18/23 09:53 Dose: 25 mg Enoxaparin Sodium (Enoxaparin Inj 40 Mg/0.4 Ml Syr) 40 mg SQ QAM [facility] Stop: 01/17/24 08:59 Last Admin: 12/18/23 09:20 Dose: 40 mg Piperacillin Sod/Tazobactam (Sod 4.5 gm/ Dextrose) 100 mls @ 25 mls/hr IV Q8H [facility]; Protocol Stop: 12/25/23 00:00 Last Infusion: 12/19/23 04:09 Dose: Infused Acetaminophen (Ofirmev) 1,000 mg in 100 mls @ 400 mls/hr IV Q8H PRN PRN Reason: pain/fever Stop: 12/20/23 21:38 Last Infusion: 12/19/23 04:09 Dose: Infused Thiamine HCl 100 mg/ Syringe 10 mls @ 2 mls/min IV QAM [facility] Stop: 01/17/24 08:59 Last Admin: 12/18/23 09:24 Dose: 2 mls/min Vancomycin HCl 1,000 mg/ (Sodium Chloride) 270 mls @ 200 mls/hr IV Q12H [facility] Stop: 01/29/24 05:59 Last Infusion: 12/19/23 07:35 Dose: Infused Miscellaneous Information (Vancomycin Consult Active) 1 each N/A UD PRN PRN Reason: Consult Stop: 01/16/24 13:50 Morphine Sulfate (Morphine Sulfate 2 Mg/Ml Carp) 2 mg IV Q4 PRN PRN Reason: Pain Stop: 01/01/24 16:01 Last Admin: 12/18/23 16:56 Dose: 2 mg
--- NOTE | 2023-12-19 09:36 | Pharmacy Report ---
Pharmacy PK ABX Note - Date of Service December 19, 2023 - Assessment and Plan Assessment 57 year old M receiving vancomycin and zosyn for treatment of perirectal abscess and bacteremia with possible osteomyelitis. Blood cultures (+) GPCC. Blood biofire (+) MRSA. (+) DICK on arrival - SCr down-trending (2.19-->1.49-->1.28). ID consulted. Day #3 of antimicrobial therapy. Plan Vancomycin * Renal function improved again today scr 0.95 today. * Current regimen: 1000 mg IV every 12 hours * Random level obtained 12/19/23 resulted as 12.6 mcg/mL. This is predicted to achieve low end of target AUC/SHARRI of 400-600 mg/L.hr (~409). Given possible deep seated MRSA infection will increase the dose. * Change to 1250 mg IV every 12 hours. Predicted AUC at steady state: 503 mg/L.hr * Repeat random level ordered for: 12/21/23 Pharmacy will continue to follow and will adjust dose/frequency as necessary. Thank you. Pharmacy has transitioned to AUC monitoring for vancomycin. AUC/SHARRI is the preferred PK/PD target and is associated with decreased risk of nephrotoxicity compared to traditional trough targets.
[2023-12-19] MEDS: VANCOMYCIN HCL 1,250 MG in SODIUM CHLORIDE 0.9% 250 ML IV SCH (17:34)
--- NOTE | 2023-12-20 05:14 | Surgery Progress Note ---
Date of Service December 20, 2023 Assessment & Plan (1) Abscess, perianal: Plan: Patient previously evaluated by the [facility] general surgery serviceimaging was reviewed with interventional radiology and surgical services at [facility] in [place], [place] conservative measures were recommended as the abscess in question was felt to be too small Chart reviewed and patient has not had any fevers since approximately 4:30 PM on 12/19/2023 Of note, the patient was noted to have positive blood cultures from 12/17/2023 which were positive for MRSA Repeat blood cultures from 12/18/2023 also showed gram-positive cocci with further identification pending Continue antibioticspatient is currently receiving vancomycin and Zosyn Patient has been evaluated by infectious diseaserecommendations include obtaining an echocardiogram and following serial blood cultures; echocardiogram was performed which did not visualize any valvular vegetations Admission and Anticipated Discharge Date Admission Date: December 17, 2023 Supervising Physician Co-Signing Physician Notes I have seen and examined this patient, I agree with the above assessment. He did have 3 documented fevers yesterday, last febrile at 1626 yesterday. No fevers today thus far at almost 24 hours. His leukocytosis has continued to decrease throughout the weekend although slowly. Clinically he appears well and has transferred out of the ICU. F/u labs in the am. Decision for the need for repeat imaging by his primary team this week. No acute concerning changes at this time. His primary consulting surgical team will f/u in the am. Subjective Patient is resting comfortably in bed. He denies any abdominal pain. He also denies any rectal pain at this time. He denies any fevers, shakes, or chills. Physical Exam Physical Exam: Patient is nontoxic-appearing Gastrointestinal (Abdomen): Abdomen is soft and nondistended. There is no pain with palpation Results & Data Vital Signs (Past 12 Hours) Vital Signs Temp Pulse Pulse Resp BP Pulse Ox O2 Del Method 12/20/23 04:00 36.9 C 12/20/23 03:54 36.9 C 86 18 108/58 L 93 Room Air 12/20/23 02:00 37.1 C 66 14 95 Room Air 12/19/23 23:04 37.5 C 88 18 123/67 93 Room Air 12/19/23 22:00 80 12/19/23 20:00 Room Air 12/19/23 20:00 37.4 C 74 18 102/62 94 Room Air PG Care Time/CCT Total # of Minutes Spent Total Time Spent with Patient: Total time spent is greater than 50% in coordination of care (as documented) at patient's floor/unit and/or counseling patient: Coding Level of Care Code 02616 SUB INP/OBS CARE 10/15MIN Diagnoses Abscess, perianal K61.0
[2023-12-20 06:10] LABS: Basophils # (auto) 0.06 K/uL (0.00-0.20); Basophils % (auto) 0.4 %; Eosinophils # (auto) 0.12 K/uL (0.00-0.50); Eosinophils % (auto) 0.8 %; Hematocrit (blood only) 22.5 % (42.0-52.0); Hemoglobin 7.2 g/dl (14.0-18.0); Immature Granulocytes # (auto) 0.37 K/uL (0.01-0.20); Immature Granulocytes % (auto) 2.3 %; Lymphocytes # (auto) 1.47 K/uL (1.20-3.40); Lymphocytes % (auto) 9.2 %; Mean Corpuscular Hemoglobin 25.5 pg (25.0-34.0); Mean Corpuscular Volume 79.8 fL (80.0-100.0); Mean Platelet Volume 9.1 fL (9.4-12.4); Monocytes % (auto) 7.5 %; Neutrophils % (auto) 79.8 %; Platelet Count 545 K/uL (130-400); RDW Coefficient of Variation 14.7 % (11.5-14.5); RDW Standard Deviation 42.7 fL (36.4-46.3); Red Blood Count 2.82 M/uL (4.70-6.10); White Blood Count 15.92 K/ul (4.8-10.8)
[2023-12-20 06:37] LABS: Anion Gap 7 (3-11); Blood Urea Nitrogen 15 mg/dl (6-23); Calcium 7.8 mg/dl (8.6-10.3); Carbon Dioxide 25 mmol/L (21-32); Chloride 98 mmol/L (98-107); Creatinine Clr Calc Pharmacy 113.4 ml/min; Est GFR (African American) 111.3 ml/min; Glucose 120 mg/dl (70-99(Fasting)); Magnesium 1.6 mg/dl (1.7-2.4); Phosphorus 2.3 mg/dl (2.5-4.9); Sodium 130 mmol/L (136-145)
[2023-12-20 06:49] LABS: Hypochromasia Present; Polychromasia 1+; Rouleaux 1+
--- NOTE | 2023-12-20 07:55 | Hospitalist Progress Note ---
Date of Service December 20, 2023 Assessment & Plan (1) Encephalopathy: Plan: - likely secondary to sepsis - CT head negative for any acute intracranial abnormality - UDS negative - resolved, mental status back to baseline (2) Sepsis: Plan: MRSA bacteremia Patient presents tachycardic, febrile, with temperature 38.1 C, white blood cell count 24.9 K Procalcitonin elevated Biofire - negative Blood cultures - posit. for MRSA Urine culture pending Received cefepime and vancomycin in the ED, currently on vancomycin and zosyn Cavitary lesion noted at left lower lung (on CT abd/pelvis) obtained chest CT to further evaluate - 1. There is a 2.8 cm cavitary lesion of the base of the left lung with the rim measuring 0.9 cm. This is concerning for cavitary malignancy, less likely cavitary pneumonia. 2. Interseptal thickening could relate to atelectasis and/or pulmonary edema. 3. Minimal atherosclerotic disease. Etiology of cavitary lesion is not clear. Patient is supposed to have a PET/CT done as an outpatient. ID also consulted, as below. Abscess - perirectal/periprostatic - gas and fluid collection loculated between the prostate gland and rectum measuring approximately 4.1 x 2.1 cm. poss. 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 - Discussed with urology (Dr. Turk) and gen. surgery (Dr. Simpson) - would recommend to discuss with IR for poss. drainage / poss. tertiary center for furt her eval and transfer - contacted [facility] - per IR collection too small for drainage and per surgery no need for acute surgical intervention unless IR can drain it -> therefore no need for transfer, they agree with ICU admission and further work up and treatment of sepsis - cont. broad spectrum antibiotics, ID consulted Recommendations: - Continue IV vancomycin (dosing per Rx) - Continue pip-tazo 4.5 IV q8h for now - Obtain TTE - as below - no vegetations - Repeat BCx daily until clear x48h - If persistent fevers/leukocytosis, low threshold to reimage perirectal abscess. If persistent/increasing then recommend radiology reevaluation for possible aspiration. If obtaining, please send for bacteria/fungal/AFB cultures and stains. - Given LLL cavitary lesion, send quantiferon, Histo UrAg, CrAg, BDG, Aspergillus Ag, Blasto Ab - If develops cough or respiratory Sx then would send sputum bacterial/Nocardia/fungal/AFB Cx and low threshold for AFB respiratory evaluation (3x sputa and MTB PCR) - Current planned for outpatient PET/CT to further evaluate LLL cavitation - Would continue to monitor closely for s/sx of metastatic spread of MRSA inf ection (joint pain, back pain) with low threshold to image/evaluate - F/u 12/16 UCx, BCx TTE - Echo - w/o vegetations, LV is normal in size. Mild concentric LVH. No regional wall motion abnormalities noted. EF 60 to 65%. There is no visualized valvular vegetation within limitations of transthoracic study of fair technical quality. 12/19 - Discussed w/ ID - given persistent blood cultx - would recommend KIERSTEN -> cardiology contacted re: poss. KIERSTEN tmrw, npo after mn R calf edema, tenderness - somewhat chronic issue, but seems worse per pt - will obtain doppler now to r/o dvt - evaluated by orthopedic oncology at [facility], by Dr. Sebas Sheridan day prior admission for RLE pain. Patient has history of right distal thigh/knee pain. Patient had x-ray and MRI done. Right femur x-ray consistent with lytic bone lesion of right distal femoral metaphysis and epiphysis. 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 Per radiology suggestion, also possibility of osteomyelitis. It was recommended that patient would have a biopsy, which was scheduled for December 18, 2023. PET scan scheduled for December 21. (3) DICK (acute kidney injury): Plan: - Cr elevated at 2.2, likely secondary to sepsis - cont. to closely monitor renal function, urine output - avoid nephrotoxic agents - Cr now improved to 0.9 (4) Hyponatremia: Plan: - with hypochloremia - received IVF NS in the ED - pt seemed dehydrated - cont. to closely monitor BMP - Na improved, Cl level improved AGMA - likely secondary to lactic acidosis - lactate improved after IVF - cont. to monitor - resolved, cont. to monitor Anemia - Hgb 9.0 on admission >> 7.4 - cont. to monitor H&H - FOBT - pending - peripheral smear - pending Admission and Anticipated Discharge Date Admission Date: December 17, 2023 Subjective Pt seen in follow up of AMS, sepsis Mental status back to baseline - pt is alert and oriented, does not remember much of when he came to the hospital Blood cultx positive for MRSA - persistently Surgery, urology ID consulted Pt reports feeling well overall besides R leg pain which he has had for some time, he also reports R calf edema seems worse No chest pain, shortness of breath, no abd. pain, n/v. Discussed w/ ID today - given persistent blood cultx - would recommend KIERSTEN -> cardiology contacted re: poss. KIERSTEN tmrw, npo after mn Review of Systems Review of Systems: All systems reviewed & are unremarkable except as noted in Subjective Physical Exam Physical Exam: Constitutional: WD/WN, vitals as a celia Eyes: PERRL, conjunctiva e normal, anicteri c sclerae ENMT: external ear and n ose normal, oropha rynx normal Neck: normal visual insp ection Respiratory: normal respiratory effort, lungs shreyas ar to auscultation Cardiovascular: RRR, no murmur, no edema Chest (Breasts): Chest: normal insp ection of chest Gastrointestinal ( Abdomen): normal bowel sound s, soft, nontender , Musculoskeletal: Head/Neck/Chest: n ormocephalic and h ead atraumatic R k nee mild edema, no erythema, moves e xtremities, R calf edema, + tender t o palp. Skin: no rashes, warm an d dry Neurologic: awake, alert, cedric ented, answers catrachito ropriately, speech fluent, no facial asymmetry, moves extremities Results & Data Results & Data Vital Signs (Past 12 Hours) Vital Signs Temp Pulse Pulse Resp BP Pulse Ox O2 Del Method 12/20/23 07:29 85 12/20/23 06:00 36.9 C 12/20/23 04:00 36.9 C 12/20/23 03:54 36.9 C 86 18 108/58 L 93 Room Air 12/20/23 02:00 37.1 C 66 14 95 Room Air 12/19/23 23:04 37.5 C 88 18 123/67 93 Room Air 12/19/23 22:00 80 12/19/23 20:00 Room Air 12/19/23 20:00 37.4 C 74 18 102/62 94 Room Air Laboratory Results 12/20/23 12/20/2324 Range/Units 06:52 05:30 04:11 WBC 15.92 H (4.8-10.8) K/ul RBC 2.82 L (4.70-6.10) M/uL Hgb 7.2 L (14.0-18.0) g/dl Hct 22.5 L (42.0-52.0) % MCV 79.8 L (80.0-100.0) fL MCH 25.5 (25.0-34.0) pg MCHC 32.0 (32.0-36.0) g/dL RDW Std Deviation 42.7 (36.4-46.3) fL RDW Coeff of Xavier 14.7 H (11.5-14.5) % Plt Count 545 H (130-400) K/uL MPV 9.1 L (9.4-12.4) fL Immature Gran % (Auto) 2.3 % Neut % (Auto) 79.8 % Lymph % (Auto) 9.2 % [place] % (Auto) 7.5 % Eos % (Auto) 0.8 % Baso % (Auto) 0.4 % Neut # (Auto) 12.70 H (1.40-6.50) K/uL Lymph # (Auto) 1.47 (1.20-3.40) K/uL [place] # (Auto) 1.20 H (0.11-0.59) K/uL Eos # (Auto) 0.12 (0.00-0.50) K/uL Baso # (Auto) 0.06 (0.00-0.20) K/uL Immature Gran # (Auto) 0.37 H (0.01-0.20) K/uL Polychromasia 1+ Hypochromasia Present Rouleaux 1+ Peripher Smr Path Cons Pending Sodium 130 L (136-145) mmol/L Potassium 3.6 TNP Chloride 98 (98-107) mmol/L Carbon Dioxide 25 (21-32) mmol/L Anion Gap 7 (3-11) BUN 15 (6-23) mg/dl Creatinine 0.88 (0.6-1.4) mg/dl Est Cr Clr Drug Dosing 113.4 ml/min Est GFR ( Amer) 111.3 ml/min Est GFR (Non-Af Amer) 96.0 ml/min BUN/Creatinine Ratio 17.0 (10-20) Glucose 120 H (70-99(Fasting)) mg/dl Calcium 7.8 L (8.6-10.3) mg/dl Phosphorus 2.3 L (2.5-4.9) mg/dl Magnesium 1.6 L (1.7-2.4) mg/dl Medications Administered Current Inpatient Medications Atenolol (Atenolol 25 Mg Tablet) 25 mg PO [facility] Stop: 01/17/24 09:14 Last Admin: 12/19/23 09:23 Dose: 25 mg Enoxaparin Sodium (Enoxaparin Inj 40 Mg/0.4 Ml Syr) 40 mg SQ [facility] Stop: 01/17/24 08:59 Last Admin: 12/18/23 09:20 Dose: 40 mg Piperacillin Sod/Tazobactam (Sod 4.5 gm/ Dextrose) 100 mls @ 25 mls/hr IV Q8H [facility]; Protocol Stop: 12/25/23 00:00 Last Admin: 12/20/23 07:34 Dose: 25 mls/hr Acetaminophen (Ofirmev) 1,000 mg in 100 mls @ 400 mls/hr IV Q8H PRN PRN Reason: pain/fever Stop: 12/20/23 21:38 Last Infusion: 12/19/23 16:30 Dose: Infused Thiamine HCl 100 mg/ Syringe 10 mls @ 2 mls/min IV [facility] Stop: 01/17/24 08:59 Last Admin: 12/20/23 07:35 Dose: 2 mls/min Vancomycin HCl 1,250 mg/ (Sodium Chloride) 275 mls @ 200 mls/hr IV Q12H [facility] Stop: 01/29/24 05:59 Last Infusion: 12/20/23 07:27 Dose: Infused Magnesium Sulfate/Dextrose (Magnesium Sulfate / D5w) 1 gm in 100 mls @ 50 mls/hr IV ONE ONE Stop: 12/20/23 09:52 Miscellaneous Information (Vancomycin Consult Active) 1 each N/A UD PRN PRN Reason: Consult Stop: 01/16/24 13:50 Morphine Sulfate (Morphine Sulfate 2 Mg/Ml Carp) 2 mg IV Q4 PRN PRN Reason: Pain Stop: 01/01/24 16:01 Last Admin: 12/19/23 23:22 Dose: 2 mg
[2023-12-20] MEDS: MAGNESIUM SULFATE / D5W 1 GM/100 ML BAG IV ONE (09:29)
--- NOTE | 2023-12-20 13:30 | Ultrasound Report ---
ULTRASOUND RIGHT LOWER EXTREMITY VENOUS CLINICAL HISTORY: Right lower extremity edema. COMPARISON STUDY: No priors TECHNIQUE: Real-time, grayscale, and color Doppler sonography of the deep veins of the right lower ex tremity was performed from the inguinal crease to the calf. Compression and augmentation were utilize d. FINDINGS: The common femoral vein is patent and normally compressible. Occlusive deep venous thrombos is is seen from extending from the proximal superficial femoral vein, through the popliteal vein, and into the calf vessels The greater saphenous vein and the profunda femoris vein at the junction with the common femoral vein are clear. IMPRESSION: Extensive occlusive deep venous thrombosis throughout the right lower extremity as above. ACT 112: Negative or not required by law. Electronically signed by: Jose Shrestha M.D. 12/20/2023 1:28 PM
[2023-12-20] MEDS: HEPARIN SODIUM/DEXTROSE 25,000 UNITS/500 ML BAG IV SCH (15:31)
[2023-12-20] MEDS: Heparin IV Adult Wt-Based Low-Dose *NO* INITIAL Bolus Protocol IV SCH (15:32)
[2023-12-20 16:17] LABS: ANTI-Xa, UFH(UnfractionatedHep < 0.10 IU/ml (0.3-0.7); INR 1.1 (0.9-1.1); Partial Thromboplastin Ratio 1.1; Partial Thromboplastin Time 31 Seconds (21-31); Prothrombin Time 11.8 Seconds (9.0-12.0)
[2023-12-20] MEDS: ACETAMINOPHEN 500 MG TAB PO PRN (16:44)
[2023-12-20] MEDS: VANCOMYCIN HCL 1,500 MG in SODIUM CHLORIDE 0.9% 500 ML IV SCH (18:03)
[2023-12-20] MEDS ORDERED: MICONAZOLE NITRATE POWDER 85 GM EXT PRN (18:06)
[2023-12-20 22:02] LABS: ANTI-Xa, UFH(UnfractionatedHep < 0.10 IU/ml (0.3-0.7)
[2023-12-20] MEDS ORDERED: HEPARIN SOD (PORCINE) 1000 UNIT/ML IV ONE (22:20)
[2023-12-20] MEDS: HEPARIN SOD (PORCINE) 1000 UNIT/ML IV ONE (22:36)
[2023-12-21 04:57] LABS: BUN Creatinine Ratio 13.8 (10-20); Calcium 7.8 mg/dl (8.6-10.3); Creatinine Clr Calc Pharmacy 114.7 ml/min; Est GFR (African American) 111.8 ml/min; Est GFR (Non-African American) 96.5 ml/min; Magnesium 1.6 mg/dl (1.7-2.4); Potassium 3.5 mmol/L (3.5-5.1)
[2023-12-21 05:06] LABS: ANTI-Xa, UFH(UnfractionatedHep < 0.10 IU/ml (0.3-0.7)
[2023-12-21] MEDS: HEPARIN SOD (PORCINE) 1000 UNIT/ML IV ONE ×2 (05:52→14:02)
--- NOTE | 2023-12-21 08:00 | Pharmacy Report ---
Pharmacy PK ABX Note - Date of Service December 21, 2023 - Assessment and Plan Assessment * 57 year old M receiving vancomycin and zosyn for treatment of perirectal abscess and bacteremia with possible osteomyelitis. * Blood cultures - 12/16 with MRSA. Persistently positive on 12/17 and 12/18 blood cultures. 12/19 blood cultures pending. * (+) DICK on arrival - SCr down-trending (2.19-->1.49-->1.28) and now stable at 0.87 mg/dL * ID consulted * Day #5 of antimicrobial therapy. Plan Vancomycin * Given persistently positive blood cultures, aiming for the upper end of the therapeutic range will be important * Current regimen: 1500 mg IV every 12 hours * Random level obtained 12/21/23 resulted as 14.9 mcg/mL. This is predicted to achieve higher end of target AUC/SHARRI of 400-600 mg/L.hr (~548 mg/L.hr). * Repeat random level ordered for: 12/23/23 Pharmacy will continue to follow and will adjust dose/frequency as necessary. Thank you. Pharmacy has transitioned to AUC monitoring for vancomycin. AUC/SHARRI is the preferred PK/PD target and is associated with decreased risk of nephrotoxicity compared to traditional trough targets.
--- NOTE | 2023-12-21 10:21 | Cardiology Consultation ---
Date of Consultation December 21, 2023 Assessment & Plan (1) MRSA bacteremia: 57-year-old male whose past cardiac history is only notable for dyslipidemia which has been well-controlled as an outpatient on simvastatin, and hypertension. Patient has persistent MRSA bacteremia, concern for infection with possible sources of cavitary lung lesion, perirectal abscess, and distal right femur. Patient also found to have occlusive right lower leg DVT. The patient's vital signs are stable. He is not on pressors, although he had issues with encephalopathy on initial presentation his mentation is much improved. He is afebrile this morning and pulse oximetry is stable in the 90s on room air. The patient states that he lives with his 91-year-old father. He does not have any other family members whom he like to have updated with regards to his progress in the hospital at this time. Cardiology was consulted for consideration of transesophageal echocardiogram. Patient has been n.p.o., will plan on procedure today pending scheduling with anesthesia. If unable to coordinate it today, will plan on delaying until tomorrow. Rationale, risks and benefits of transesophageal echocardiogram discussed at length with patient and he elects to proceed. Case discussed by phone with Dr. Jean for the purpose of coordination of care. I spent a total of 55 minutes on the date of service in preparation, delivery, and documentation of the care provided to this patient, excluding any time spent in the performance of separately billed services. History of Present Illness Attending Physician: Henrique Jean MD History of Present Illness Mr Barrera is a 57 year old male seen in cardiology consultation per the request of Dr Jean given recent history of persistent MRSA bacteremia for the evaluation of proceeding with a transesophageal echocardiogram. The patient had presented on 12/17/2023 via the emergency room with confusion and was found to be febrile on presentation with a temperature of 38.1 C and a leukocytosis of 24.9 thousand. The patient's mental status has since improved. He has been found to have persistent MRSA bacteremia and 6 of 8 blood cultures thus far. Urine culture is also positive for MRSA. At present, patient is without subjective complaint with the exception of ongoing pain in his distal right thigh, knee, and calf. Per review of recent progress notes including an outpatient orthopedic consultation from 12/16/2019 for this leg pain has been progressive over the last few months. Review of the outpatient MRI of the femur dated 12/11/2023 within the [facility] system includes summary of radiology report with image features favoring diagnosis of distal femoral osteomyelitis with cortical disruption and extension into the previous femoral fat pad, myositis of the distal quadriceps and proximal calf muscles, and a small intramuscular abscess within the medial gastrocnemius muscle. The neoplastic process was also felt to be a consi deration. Clinically when he saw orthopedics, it was felt that the patient's presentation and MRI were suggestive of lymphoma of the bone or similar lesion and tissue sampling was tentatively planned as well as a PET scan but he was admitted in the meantime. A CT of the chest performed 12/17/2023 revealed a 2.8 cm cavitary lesion at the base of the left lung. CT of the abdomen pelvis performed 12/17/2023 suggestive of a collection of gas and fluid between the prostate gland in the rectum measuring 4.1 x 2.1 cm. The patient has also been found to have an occlusive deep venous thrombosis extending from the proximal superficial femoral vein, through the popliteal vein, and into the calf vessels. The report of the lower extremity venous duplex describes that the greater saphenous vein and the profunda femoris vein at the junction of the common femoral vein without thrombus. Patient denies subjective shortness of breath, chest discomfort. Review of telemetry reveals sinus rhythm in the 90s to low 100s without arrhythmia. Allergies Allergy/AdvReac Type Severity Reaction Status Date / Time No Known Allergies Allergy Unverified 12/17/23 15:30 Home Medications Medication Instructions Recorded Confirmed Type atenolol 25 mg tablet 25 mg PO QAM 12/17/23 12/17/23 History chlorthalidone 25 mg tablet 25 mg PO QAM 12/17/23 12/17/23 History enalapril maleate 10 mg tablet 10 mg PO QAM 12/17/23 12/17/23 History enalapril maleate 20 mg tablet 20 mg PO QAM 12/17/23 12/17/23 History naproxen 500 mg tablet 500 mg PO BID PRN Pain 12/17/23 12/17/23 History simvastatin 20 mg tablet 20 mg PO HS 12/17/23 12/17/23 History Patient History Medical History Dyslipidemia Hypertension Social History Smoking Status: Unknown if ever smoked Second Hand Exposure: No; Do You Dip or Chew Tobacco: No; Hx Alcohol Use: No Hx Substance Use: No Preferred Language: Turkmen Communication Ability: Effective Molding Plasterer Required: No Beliefs That Will Affect Care: None Current Living Situation: Family Feels Safe at Home: Yes Assistive Devices: Bedside Commode and Walker Review of Systems Review of Systems: All systems reviewed & are unremarkable except as noted in HPI & below Gastrointestinal: Denies pain with bowel movements or soreness around his rectum subjectively Genitourinary: no dysuria (Denies pressure or dysuria, denies hematuria) Physical Exam Constitutional: WD/WN, vitals as above Respiratory: normal respiratory effort, lungs clear to auscultation Cardiovascular: RRR, no murmur, no edema Gastrointestinal (Abdomen): normal bowel sounds, soft, nontender, no hepatosplenomegaly Musculoskeletal: Right lower leg, mild swelling of the calf without associated erythema Neurologic: PERRL, EOMI, accommodation nl, no face palsy, no dysarthria Results & Data Vital Signs (Past 12 Hours) Vital Signs Temp Pulse Pulse Resp BP Pulse Ox O2 Del Method 12/21/23 07:25 37.3 C 89 19 131/70 91 Room Air 12/21/23 03:18 36.9 C 86 17 111/63 93 Room Air 12/20/23 23:31 75 Laboratory Results Coagulation 12/20/23 Range/Units 15:23 PT 11.8 (9.0-12.0) Seconds APTT 31 (21-31) Seconds Comprehensive Metabolic Panel 12/21/23 Range/Units 04:25 Sodium 130 L (136-145) mmol/L Potassium 3.5 (3.5-5.1) mmol/L Chloride 97 L (98-107) mmol/L Carbon Dioxide 27 (21-32) mmol/L BUN 12 (6-23) mg/dl Creatinine 0.87 (0.6-1.4) mg/dl Glucose 126 H (70-99(Fasting)) mg/dl Calcium 7.8 L (8.6-10.3) mg/dl Intake and Output 12/20/23 12/21/23 12/21/23 22:59 06:59 14:59 Intake Total 1189.333 / 2432.250 267.917 / 2432.250 597 / 597 Output Total 200 / 1401 200 / 1401 175 / 175 Balance 989.333 / 1031.250 67.917 / 1031.250 422 / 422 Intake: IV 769.333 / 1512.250 267.917 / 1512.250 597 / 597 Heparin Sodium/Dextrose 25,000 139.333 / 307.250 167.917 / 307.250 67 / 67 units In 500 ml @ 1,500 UNITS/ HR 30 mls/hr IV .[id number] [facility] Rx #:[id number] Piperacillin/Tazobactam 4.5 gm 100 / 300 100 / 300 In Dextrose 5% Mini-B 100 ml @ 25 mls/hr IV Q8H [facility] Rx#: [id number] Vancomycin HCl 1,500 mg In 530 / 530 530 / 530 Sodium Chloride 0.9% 500 ml @ 200 mls/hr IV Q12H [facility] Rx#: [id number] Oral 420 / 920 0 / 920 Output: Urine 200 / 1400 200 / 1400 175 / 175 Other: # Unmeasured Voids 1 Weight 90.1 kg Weight Measurement Method Built in [facility] Diagnostic Findings EKG performed 12/09/2023 and interpret independently: Sinus tachycardia 104 bpm, no significant repolarization abnormalities Summary of transthoracic echocardiogram performed 12/18/2023: Normal LV wall motion, normal LVEF 60 to 65%, mild concentric left ventricular hypertrophy No evidence of valvular abnormality within the limitations of the imaging modality
--- NOTE | 2023-12-21 10:22 | Hospitalist Progress Note ---
Date of Service December 21, 2023 Assessment & Plan (1) Encephalopathy: Plan: - likely secondary to sepsis - CT head negative for any acute intracranial abnormality - UDS negative - resolved, mental status back to baseline (2) Sepsis: Plan: MRSA bacteremia Patient presents tachycardic, febrile, with temperature 38.1 C, white blood cell count 24.9 K Procalcitonin elevated Biofire - negative Blood cultures - posit. for MRSA Urine culture - MRSA Received cefepime and vancomycin in the ED, currently on vancomycin and zosyn Cavitary lesion noted at left lower lung (on CT abd/pelvis) obtained chest CT to further evaluate - 1. There is a 2.8 cm cavitary lesion of the base of the left lung with the rim measuring 0.9 cm. This is concerning for cavitary malignancy, less likely cavitary pneumonia. 2. Interseptal thickening could relate to atelectasis and/or pulmonary edema. 3. Minimal atherosclerotic disease. Etiology of cavitary lesion is not clear. Patient is supposed to have a PET/CT done as an outpatient. ID also consulted, as below. Abscess - perirectal/periprostatic - gas and fluid collection loculated between the prostate gland and rectum measuring approximately 4.1 x 2.1 cm. poss. 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 - Discussed with urology (Dr. Turk) and gen. surgery (Dr. Simpson) - would recommend to discuss with IR for poss. drainage / poss. tertiary center for further eval and transfer - contacted [facility] - per IR collection too small for drainage and per surgery no need for acute surgical intervention unless IR can drain it -> therefore no need for transfer, they agree with ICU admission and further work up and treatment of sepsis - cont. broad spectrum antibiotics, ID consulted Recommendations: - Continue IV vancomycin (dosing per Rx) - Continue pip-tazo 4.5 IV q8h for now - Obtain TTE - as below - no vegetations -? KIERSTEN obtained today (12/21/2023) - small mitral valve vegetation - Repeat BCx daily until clear x48h - If persistent fevers/leukocytosis, low threshold to reimage perirectal abscess. If persistent/increasing then recommend radiology reevaluation for possible aspiration. If obtaining, please send for bacteria/fungal/AFB cultures and stains. - Given LLL cavitary lesion, send quantiferon, Histo UrAg, CrAg, BDG, Aspergillus Ag, Blasto Ab - If develops cough or respiratory Sx then would send sputum bacterial/Nocardia/fungal/AFB Cx and low threshold for AFB respiratory evaluation (3x sputa and MTB PCR) - Current planned for outpatient PET/CT to further evaluate LLL cavitation - Would continue to monitor closely for s/sx of metastatic spread of MRSA infection (joint pain, back pain) with low threshold to image/evaluate - F/u 12/16 UCx, BCx - posit. MRSA TTE - Echo - w/o vegetations, LV is normal in size. Mild concentric LVH. No regional wall motion abnormalities noted. EF 60 to 65%. There is no visualized valvular vegetation within limitations of transthoracic study of fair technical quality. Blood cultx 12/16, 12/17, 12/18 - posit. for MRSA Blood cultx 12/19 - pending Given persistent blood cultx - KIERSTEN obtained today (12/21/2023) - small mitral valve vegetation R calf edema, tenderness RLE DVT RLE poss. abscess, poss. osteomyelitis, poss. lymphoma? - R calf edema, pain - somewhat chronic issue, but seems worse per pt - obtained Doppler - posit. for DVT - IV heparin started (12/20/2023) - evaluated by orthopedic oncology at [facility], by Dr. Sebas Sheridan day prior admission for RLE pain. Patient has history of right distal thigh/knee pain. Patient had x-ray and MRI done. Right femur x-ray consistent with lytic bone lesion of right distal femoral metaphysis and epiphysis. 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 Per radiology suggestion, also possibility of osteomyelitis. It was recommended that patient would have a biopsy, which was scheduled for December 18, 2023. PET scan scheduled for December 21. - given persistent bacteremia - concern for RLE infection/ abscess/ osteo - pt will need further prompt orthopedic evaluation. [facility] contacted and pt will be transferred there for further eval and care. (3) DICK (acute kidney injury): Plan: - Cr elevated at 2.2, likely secondary to sepsis - cont. to closely monitor renal function, urine output - avoid nephrotoxic agents - Cr now improved to 0.9 (4) Hyponatremia: Plan: - with hypochloremia - received IVF NS in the ED - pt seemed dehydrated - cont. to closely monitor BMP - Na improved, Cl level improved AGMA - likely secondary to lactic acidosis - lactate improved after IVF - cont. to monitor - resolved, cont. to monitor Anemia - Hgb 9.0 on admission >> 7.4 - cont. to monitor H&H - FOBT - negative - peripheral smear - pending Admission and Anticipated Discharge Date Admission Date: December 17, 2023 Subjective Pt seen in follow up of AMS, sepsis Mental status back to baseline - pt is alert and oriented, does not remember much of when he came to the hospital Blood cultx positive for MRSA - persistently Surgery, urology ID consulted Pt reports feeling well overall besides R leg pain which he has had for some time, he also reports R calf edema seems worse. Obtained doppler yesterday - posit. for DVT - IV heparin started yesterday No chest pain, shortness of breath, no abd. pain, n/v. Given persistent positive blood cultx - KIERSTEN was obtained today - small mitral valve vegetation. Discussed w/ cardiology - recommends further eval by orthopedics/ tertiary center. Mitral valve vegetation small at this point - not requiring surgical intervention at this time however pt's RLE possibly the source of infection as pt evaluated for RLE pain previously. Discussed w/ [facility] transfer center - pt to be transferred there for further eval and care. Review of Systems Review of Systems: All systems reviewed & are unremarkable except as noted in Subjective Physical Exam Physical Exam: Constitutional: WD/WN, vitals as a celia Eyes: PERRL, conjunctiva e normal, anicteri c sclerae ENMT: external ear and n ose normal, oropha rynx normal Neck: normal visual insp ection Respiratory: normal respiratory effort, lungs shreyas ar to auscultation Cardiovascular: RRR, no murmur, no edema Chest (Breasts): Chest: normal insp ection of chest Gastrointestinal ( Abdomen): normal bowel sound s, soft, nontender , Musculoskeletal: Head/Neck/Chest: n ormocephalic and h ead atraumatic R k nee mild edema, no erythema, moves e xtremities, R calf edema, + tender t o palp. Skin: no rashes, warm an d dry Neurologic: awake, alert, cedric ented, answers catrachito ropriately, speech fluent, no facial asymmetry, moves extremities Results & Data Results & Data Vital Signs (Past 12 Hours) Vital Signs Temp Pulse Pulse Resp BP Pulse Ox O2 Del Method 12/21/23 07:25 37.3 C 89 19 131/70 91 Room Air 12/21/23 03:18 36.9 C 86 17 111/63 93 Room Air 12/20/23 23:31 75 Laboratory Results 12/21/23 12/20/23 12/20/23 Range/Units 04:25 21:23 15:23 PT 11.8 (9.0-12.0) Seconds INR 1.1 (0.9-1.1) APTT 31 (21-31) Seconds PTT Ratio 1.1 Heparin Anti-Xa, Unfract < 0.10 L < 0.10 L < 0.10 L (0.3-0.7) IU/ml Sodium 130 L (136-145) mmol/L Potassium 3.5 (3.5-5.1) mmol/L Chloride 97 L (98-107) mmol/L Carbon Dioxide 27 (21-32) mmol/L Anion Gap 6 (3-11) BUN 12 (6-23) mg/dl Creatinine 0.87 (0.6-1.4) mg/dl Est Cr Clr Drug Dosing 114.7 ml/min Est GFR ( Amer) 111.8 ml/min Est GFR (Non-Af Amer) 96.5 ml/min BUN/Creatinine Ratio 13.8 (10-20) Glucose 126 H (70-99(Fasting)) mg/dl Calcium 7.8 L (8.6-10.3) mg/dl Phosphorus 2.0 L (2.5-4.9) mg/dl Magnesium 1.6 L (1.7-2.4) mg/dl Stool Occult Bld Scrn (Negative) Random Vancomycin 14.9 (10-20) mcg/ml 12/20/23 Range/Units 12:05 PT (9.0-12.0) Seconds INR (0.9-1.1) APTT (21-31) Seconds PTT Ratio Heparin Anti-Xa, Unfract (0.3-0.7) IU/ml Sodium (136-145) mmol/L Potassium (3.5-5.1) mmol/L Chloride (98-107) mmol/L Carbon Dioxide (21-32) mmol/L Anion Gap (3-11) BUN (6-23) mg/dl Creatinine (0.6-1.4) mg/dl Est Cr Clr Drug Dosing ml/min Est GFR ( Amer) ml/min Est GFR (Non-Af Amer) ml/min BUN/Creatinine Ratio (10-20) Glucose (70-99(Fasting)) mg/dl Calcium (8.6-10.3) mg/dl Phosphorus (2.5-4.9) mg/dl Magnesium (1.7-2.4) mg/dl Stool Occult Bld Scrn Negative (Negative) Random Vancomycin (10-20) mcg/ml Medications Administered Current Inpatient Medications Acetaminophen (Acetaminophen 500 Mg Tab) 1,000 mg PO Q8H PRN PRN Reason: Fever Stop: 01/19/24 16:36 Last Admin: 12/20/23 16:44 Dose: 1,000 mg Atenolol (Atenolol 25 Mg Tablet) 25 mg PO [facility] Stop: 01/17/24 09:14 Last Admin: 12/21/23 09:48 Dose: 25 mg Piperacillin Sod/Tazobactam (Sod 4.5 gm/ Dextrose) 100 mls @ 25 mls/hr IV Q8H [facility]; Protocol Stop: 12/25/23 00:00 Last Infusion: 12/21/23 14:09 Dose: Infused Thiamine HCl 100 mg/ Syringe 10 mls @ 2 mls/min IV [facility] Stop: 01/17/24 08:59 Last Admin: 12/21/23 09:47 Dose: 2 mls/min Vancomycin HCl 1,500 mg/ (Sodium Chloride) 530 mls @ 200 mls/hr IV Q12H [facility] Stop: 01/29/24 05:59 Last Infusion: 12/21/23 09:56 Dose: Infused Heparin Sodium/Dextrose (Heparin Sodium/Dextrose) 25,000 units in 500 mls @ 33 mls/hr IV .[id number] [facility]; Protocol Stop: 01/19/24 15:14 Last Admin: 12/21/23 12:23 Dose: 1,650 units/hr, 33 mls/hr Miconazole Nitrate (Miconazole Nitrate Powder 85 Gm) 1 appln EXT PRN PRN PRN Reason: Affected Skin Folds Stop: 01/19/24 18:05 Miscellaneous Information (Vancomycin Consult Active) 1 each N/A UD PRN PRN Reason: Consult Stop: 01/16/24 13:50 Morphine Sulfate (Morphine Sulfate 2 Mg/Ml Carp) 2 mg IV Q4 PRN PRN Reason: Pain Stop: 01/01/24 16:01 Last Admin: 12/21/23 09:43 Dose: 2 mg
[2023-12-21 11:41] LABS: ANTI-Xa, UFH(UnfractionatedHep 0.16 IU/ml (0.3-0.7)
[2023-12-21] MEDS ORDERED: PROPOFOL IV EMULSION 10 MG/ML 20 ML VIAL IV ONE ×2 (12:45→13:51)
--- NOTE | 2023-12-21 13:01 | Anesthesiology Consultation ---
Date of Service December 21, 2023 Assessment & Plan ASA ASA3 Proposed Anesthesia Anesthesia Type: MAC Risk / Benefits Reviewed With: PT / POA / Parent / Guardian, Accepts Plan and Informed Consent Obtained History Surgery Operation Date: 12/21/23 13:00 Proposed Procedures p Transesophageal Echo w/Anesthesia - Rogelio Zamora DO Height/Weight Height: 6 ft Weight: 90.1 kg Allergies Allergy/AdvReac Type Severity Reaction Status Date / Time No Known Allergies Allergy Unverified 12/17/23 15:30 Medications Home Medications Medication Instructions Recorded Confirmed Last Taken atenolol 25 mg tablet 25 mg PO QAM 12/17/23 12/17/23 Unknown chlorthalidone 25 mg tablet 25 mg PO QAM 12/17/23 12/17/23 Unknown enalapril maleate 10 mg tablet 10 mg PO QAM 12/17/23 12/17/23 Unknown enalapril maleate 20 mg tablet 20 mg PO QAM 12/17/23 12/17/23 Unknown naproxen 500 mg tablet 500 mg PO BID PRN Pain 12/17/23 12/17/23 Unknown simvastatin 20 mg tablet 20 mg PO HS 12/17/23 12/17/23 Unknown Active Medications Generic Name Dose Route Start Last Admin Trade Name Freq PRN Reason Stop Dose Admin Acetaminophen 1,000 mg 12/20/23 16:37 12/20/23 16:44 Acetaminophen 500 Mg Tab PO 01/19/24 16:36 1,000 mg Q8H PRN Administration Fever Atenolol 25 mg 12/18/23 09:15 12/21/23 09:48 Atenolol 25 Mg Tablet PO 01/17/24 09:14 25 mg QAM SUKHJINDER Administration Piperacillin Sod/Tazobactam 100 mls @ 25 mls/hr 12/18/23 00:00 12/21/23 09:47 Sod 4.5 gm/ Dextrose IV 12/25/23 00:00 25 mls/hr Q8H SUKHJINDER Administration Protocol Thiamine HCl 100 mg/ Syringe 10 mls @ 2 mls/min 12/18/23 09:00 12/21/23 09:47 IV 01/17/24 08:59 2 mls/min QAM SUKHJINDER Administration Vancomycin HCl 1,500 mg/ 530 mls @ 200 mls/hr 12/20/23 18:00 12/21/23 09:56 Sodium Chloride IV 01/29/24 05:59 Infused Q12H SUKHJINDER Infusion Heparin Sodium/Dextrose 25,000 units in 500 mls @ 33 mls/hr 12/20/23 15:15 12/21/23 12:23 Heparin Sodium/Dextrose IV 01/19/24 15:14 1,650 units/hr .[id number] SUKHJINDER 33 mls/hr Administration Protocol 1,650 UNITS/HR Morphine Sulfate 2 mg 12/18/23 16:02 12/21/23 09:43 Morphine Sulfate 2 Mg/Ml Carp IV 01/01/24 16:01 2 mg Q4 PRN Administration Pain NPO Date Last Intake of Fluids: 12/21/23 Time Last Intake of Fluids: 00:00 Date Last Intake of Solids: 12/21/23 Time Last Intake of Solids: 00:00 Past Medical History Medical History Dyslipidemia Hypertension Exercise / Class Metabolic Activity II 4-5 Yardwork/Stairs/Walk up hill Past Anesthesia History No Hx of Anesthesia Complications and No Family Hx of Anesthesia Complications History of PONV No Hx of PONV and No Hx of Motion Sickness Social History Smoking Status: Unknown if ever smoked Do You Dip or Chew Tobacco: No Hx Alcohol Use: No Hx Substance Use: No Review of Systems denies fever/cough/ colds/ chest pain/ SOB/ OFELIA denies OFELIA Physical Exam Vital Signs Last Vital Signs Temp 37.2 C 12/21/23 10:30 Pulse 90 12/21/23 12:54 Resp 16 12/21/23 12:54 BP 143/71 H 12/21/23 12:54 Pulse Ox 90 12/21/23 12:54 O2 Del Method Room Air 12/21/23 12:54 ENMT Mouth: no TMJ abnormality and no dentition abnormality Thyromental Distance: > or= 3.5 Finger Breadths Mallampati Class: II Neck neck extension not limited Respiratory normal respiratory effort; no respiratory distress Auscultation: lungs clear to auscultation bilaterally Cardiovascular Rate/Rhythm: regular rate and regular rhythm Neurologic moves all extremities Psychiatric Orientation: alert and oriented x 3 Testing Laboratory Results 12/20/23 05:30 12/21/23 04:25 PT 11.8 Seconds (9.0-12.0) 12/20/23 15:23 INR 1.1 (0.9-1.1) 12/20/23 15:23 APTT 31 Seconds (21-31) 12/20/23 15:23 Urine Color Yellow 12/17/23 14:45 Urine Appearance Cloudy (Clear) A 12/17/23 14:45 Urine pH 5.0 (4.5-7.5) 12/17/23 14:45 Ur Specific [place] 1.017 (1.000-1.030) 12/17/23 14:45 Urine Protein 1+ (Negative) H 12/17/23 14:45 Urine Glucose (UA) Negative (Negative) 12/17/23 14:45 Urine Ketones Negative (Negative) 12/17/23 14:45 Urine Nitrite Negative (Negative) 12/17/23 14:45 Ur Leukocyte Esterase 2+ (Negative) H 12/17/23 14:45 Urine WBC (Auto) >30 /hpf (0-5) H 12/17/23 14:45 Urine RBC (Auto) 0-4 /hpf (0-4) 12/17/23 14:45 U Hyaline Cast (Auto) 1-5 /lpf (0-5) 12/17/23 14:45 U Epithel Cells (Auto) 0-5 /lpf (0-5) 12/17/23 14:45 Urine Bacteria (Auto) Negative (Negative) 12/17/23 14:45 12/19/23 15:50 Aerobic Blood Culture - Preliminary Blood Staph aureus MRSA Anaerobic Blood Culture - Preliminary No growth in Anaerobic bottle after 24 hours. 12/19/23 15:42 Aerobic Blood Culture - Preliminary Blood Staph aureus MRSA Anaerobic Blood Culture - Preliminary No growth in Anaerobic bottle after 24 hours. 12/18/23 12:37 Aerobic Blood Culture - Preliminary Blood Staph aureus MRSA Anaerobic Blood Culture - Preliminary No growth in Anaerobic bottle after 48 hours. 12/18/23 12:21 Aerobic Blood Culture - Preliminary Blood Staph aureus MRSA Anaerobic Blood Culture - Preliminary No growth in Anaerobic bottle after 48 hours. 12/17/23 14:45 Urine Culture - Final Urine,Clean Catch Staph aureus MRSA 12/17/23 15:23 Aerobic Blood Culture - Preliminary Blood Staph aureus MRSA Anaerobic Blood Culture - Preliminary No growth in Anaerobic bottle after 48 hours. 12/17/23 13:55 Aerobic Blood Culture - Final Blood Staph aureus MRSA Anaerobic Blood Culture - Final Staph aureus MRSA
[2023-12-21] MEDS: BENZOCAINE/TETRACAIN/BUTAM 50 APPLN/5 GM CAN EXT ONE (13:13)
--- NOTE | 2023-12-21 13:47 | Anesthesiology Progress Note ---
Date of Service December 21, 2023 Anesthesia Post Procedure Vital Signs Vital Signs: Temp Pulse Pulse Resp BP Pulse Ox O2 Del Method 12/21/23 13:40 72 16 101/55 L 99 Room Air 12/21/23 12:54 90 16 143/71 H 90 Room Air 12/21/23 10:30 37.2 C 82 19 130/69 91 Room Air 12/21/23 08:19 Room Air 12/21/23 07:25 37.3 C 89 19 131/70 91 Room Air 12/21/23 03:18 36.9 C 86 17 111/63 93 Room Air 12/20/23 23:31 75 12/20/23 22:00 36.8 C 79 17 125/65 92 Room Air 12/20/23 19:37 37.9 C H 77 17 116/69 93 Room Air 12/20/23 16:30 39.1 C H 83 23 116/65 93 Room Air 12/20/23 15:38 81 Pain Intensity Right Knee: Pain Intensity: 4 Transfer of Care Handoff Completed per policy Notes Mental Status: alert / awake / arousable and participated in evaluation Patient Amnestic to Procedure: Yes Nausea / Vomiting: adequately controlled Pain: adequately controlled Airway Patency, RR, SpO2: stable & adequate BP & HR: stable & adequate Hydration State: stable & adequate Anesthetic Complications: no major complications apparent and Pt Satisfied with anesthetic care
[2023-12-21] MEDS ORDERED: PHENYLEPHRINE 100MCG/ML 10ML SYR IV ONE (13:51)
--- NOTE | 2023-12-21 14:10 | Post Operative Brief Note ---
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 Transesophageal echocardiogram procedure: After informed consent was obtained a timeout was performed the patient was sedated with the assistance of the anesthesia service. There is a 0.5 cm x 0.3 cm mobile echodensity on the left atrial aspect of the P1 scallop of the posterior mitral valve leaflet consistent in appearance with a small vegetation. There is trace mitral regurgitation. The aortic, tricuspid and pulmonic valves are adequately visualized with no significant abnormality. Results discussed by phone with Dr Jean. Recommend updating the Infectious Disease service. Question if patient would benefit from transfer to a tertiary center for multidisciplinary discussion including reassessment from an orthopedic standpoint. Surgical Appliances Salesperson Rogelio Zamora DO Mailroom Supervisor SALOMON Diaz Estimated Blood Loss 0 Findings Consistent with Post-Op Diagnosis Anesthesia Type MAC Complications none
--- NOTE | 2023-12-21 14:52 | Surgery Progress Note ---
Date of Service December 21, 2023 Assessment & Plan (1) Abscess, perianal: (2) Sepsis: (3) Pneumonia: Plan 57year-old male presented to ED with acute mental status change. He was found to have sepsis with concern for perirectal abscess, possible pneumonia. No history of prior perirectal abscess. CT images reviewed. This also was reviewed with IR and Surgery at [facility] who recommended conservative management with IV antibiotics given that the abscess was too small for drainage 12/20/2022 febrile intermittently no abd pain, no rectal pain leukocytosis has slowly been improving Plan: no surgical intervention planned would continue IV abx if patient becomes persistently febrile, leukocytosis increases may need to consider repeat CT scan continue medical management our services signing off, please call with questions/concerns Discussed with DR. Simpson who agrees with above. Admission and Anticipated Discharge Date Admission Date: December 17, 2023 Subjective feeling okay having right calf,leg pain no abdominal pain, n,v no rectal pain has had multiple bowel movements since admission with no rectal pain , blood in stools, or mucous in stools Physical Exam Constitutional: WD/WN, vitals as above cooperative and comfortable; no acute distress and not ill appearing Gastrointestinal (Abdomen): Inspection/Auscultation: abdomen normal to inspection; abdomen not distended Percussion/Palpation: abdomen soft; abdomen nontender, no guarding, abdomen not rigid and abdomen not firm Skin: no rashes, warm and dry Psychiatric: Orientation: alert and oriented x 3 Results & Data Vital Signs (Past 12 Hours) Vital Signs Temp Pulse Resp BP Pulse Ox O2 Del Method 12/21/23 13:59 37.0 C 76 16 114/61 96 Room Air 12/21/23 13:55 78 16 102/62 99 Room Air 12/21/23 13:40 72 16 101/55 L 99 Room Air 12/21/23 12:54 90 16 143/71 H 90 Room Air 12/21/23 10:30 37.2 C 82 19 130/69 91 Room Air 12/21/23 08:19 Room Air 12/21/23 07:25 37.3 C 89 19 131/70 91 Room Air 12/21/23 03:18 36.9 C 86 17 111/63 93 Room Air Laboratory Results 12/21/23 12/21/23 12/20/23 Range/Units 11:17 04:25 21:23 Peripher Smr Path Cons PT (9.0-12.0) Seconds INR (0.9-1.1) APTT (21-31) Seconds PTT Ratio Heparin Anti-Xa, Unfract 0.16 L < 0.10 L < 0.10 L (0.3-0.7) IU/ml Sodium 130 L (136-145) mmol/L Potassium 3.5 (3.5-5.1) mmol/L Chloride 97 L (98-107) mmol/L Carbon Dioxide 27 (21-32) mmol/L Anion Gap 6 (3-11) BUN 12 (6-23) mg/dl Creatinine 0.87 (0.6-1.4) mg/dl Est Cr Clr Drug Dosing 114.7 ml/min Est GFR ( Amer) 111.8 ml/min Est GFR (Non-Af Amer) 96.5 ml/min BUN/Creatinine Ratio 13.8 (10-20) Glucose 126 H (70-99(Fasting)) mg/dl Calcium 7.8 L (8.6-10.3) mg/dl Phosphorus 2.0 L (2.5-4.9) mg/dl Magnesium 1.6 L (1.7-2.4) mg/dl Random Vancomycin 14.9 (10-20) mcg/ml 12/20/23 12/19/23 Range/Units 15:23 04:11 Peripher [facility] Path Cons PT 11.8 (9.0-12.0) Seconds INR 1.1 (0.9-1.1) APTT 31 (21-31) Seconds PTT Ratio 1.1 Heparin Anti-Xa, Unfract < 0.10 L (0.3-0.7) IU/ml Sodium (136-145) mmol/L Potassium (3.5-5.1) mmol/L Chloride (98-107) mmol/L Carbon Dioxide (21-32) mmol/L Anion Gap (3-11) BUN (6-23) mg/dl Creatinine (0.6-1.4) mg/dl Est Cr Clr Drug Dosing ml/min Est GFR ( Amer) ml/min Est GFR (Non-Af Amer) ml/min BUN/Creatinine Ratio (10-20) Glucose (70-99(Fasting)) mg/dl Calcium (8.6-10.3) mg/dl Phosphorus (2.5-4.9) mg/dl Magnesium (1.7-2.4) mg/dl Random Vancomycin (10-20) mcg/ml
[2023-12-21 18:00] LABS: ANTI-Xa, UFH(UnfractionatedHep 0.21 IU/ml (0.3-0.7)
--- NOTE | 2023-12-21 18:26 | Discharge Summary ---
Date of Service December 21, 2023 Admission HPI Per Admitting Provider Pt is a 57 M w/ hx of HTN, dyslipidemia, lumbosacral DDD, ? lymphoma who presents with altered mental status and sepsis. Yesterday patient was evaluated by orthopedic oncology at [facility], by Dr. Sebas Sheridan. Patient has history of right distal thigh/knee pain. Patient had x-ray and MRI done. Right femur x-ray consistent with lytic bone lesion of right distal femoral metaphysis and epiphysis. 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 Per radiology suggestion, also possibility of osteomyelitis. It was recommended that patient would have a biopsy, which was scheduled for December 18, 2023. Patient's brother is present at the bedside and provides history. As patient is unable to provide any history at this time. Brother says that after patient came back from [place] he was very irritable, and later was apologizing that he was very irritable. This morning his brother found him in bed and he was unable to wake him up, however patient was moving around in bed but not opening his eyes or responsive to him. Therefore he was brought to the ER. Workup in the ER suggestive of sepsis, with tachycardia, fever with temperature 38.1 C, white blood cell count elevated at 24.9 K. Patient also was found hyponatremic, and with elevated creatinine and lactic acid. He also received Ativan 4 mg and droperidol 5 mg, for agitation. Currently laying in bed, moving around however not opening his eyes or responsive to me. Discussed with ICU physician, Dr. Armstrong, as well as general surgeon Dr. Montejo, and urology, Dr. Turk. Also discussed with [facility] for possible transfer, at this point, they don't feel that patient needs urgent intervention from surgery and IR feels that collection is too small to drain. Pt will be admitted to ICU for sepsis, and will continue broad spectrum antibiotics. Admission Exam Per Admitting Provider Constitutional: WD/WN, vitals as above Eyes: PERRL, conjunctivae normal, anicteric sclerae ENMT: external ear and nose normal, oropharynx normal Neck: normal visual inspection Respiratory: normal respiratory effort, lungs clear to auscultation Cardiovascular: RRR, no murmur, no edema Chest (Breasts): Chest: normal inspection of chest Gastrointestinal (Abdomen): normal bowel sounds, soft, nontender Musculoskeletal: Head/Neck/Chest: normocephalic and head atraumatic Extremities: R knee edema, no erythema, moves extremities Skin: no rashes, warm and dry Neurologic: restless, moving extremities, does not open eyes, does not respond to voice or touch Principal Diagnosis Encephalopathy secondary to sepsis Sepsis MRSA bacteremia - persistent mitral valve vegetation (small) lung - cavitary lesion perirectal abscess RLE DVT RLE lesion - infection vs. neoplasm Discharge Exam Constitutional: WD/WN, vitals as above Eyes: PERRL, conjunctivae normal, anicteric sclerae ENMT: external ear and nose normal, oropharynx normal Neck: normal visual inspection Respiratory: normal respiratory effort, lungs clear to auscultation Cardiovascular: RRR, no murmur, no edema Chest (Breasts): Chest: normal inspection of chest Gastrointestinal (Abdomen): normal bowel sounds, soft, nontender, Musculoskeletal: Head/Neck/Chest: normocephalic and head atraumatic R knee mild edema, no erythema, moves extremities, R calf edema, + tender to palp. Skin: no rashes, warm and dry Neurologic: awake, alert, oriented, answers appropriately, speech fluent, no facial asymmetry, moves extremities Discharge Data Allergies Allergy/AdvReac Type Severity Reaction Status Date / Time No Known Allergies Allergy Unverified 12/17/23 15:30 Consultations 12/17/23 17:30 ED Decision to Admit Stat 12/17/23 20:11 Consult Urology Routine 12/17/23 20:12 Consult General Surgery Routine 12/17/23 20:13 Consult Diamond Die Polisher Routine 12/17/23 21:31 Consult Diamond Die Polisher Routine 12/18/23 09:57 Consult Infectious Diseases Routine 12/20/23 11:53 Consult Cardiology Routine 12/21/23 10:07 Consult Anesthesiology Routine 12/21/23 16:15 Burn CD for patient Routine Procedures Performed Operation Date: 12/21/23 13:00 Actual Procedures p Echo Transesophageal - DO maxi Raymond Echo Doppler Complete - DO maxi Raymond Echo Color Flow - Rogelio Zamora DO Ordered Studies 12/17/23 13:15 CT head/brain wo con Stat FINDINGS: This study is mildly compromised by motion artifact. No acute intracranial hemorrhage, midline shift or mass effect is present. The ventricular system is unremarkable. The basal cisterns are patent. No extra- axial collections are present. There are no findings to suggest acute dural sinus thrombosis or acute territorial infarct. No calvarial fractures are identified. IMPRESSION: 1. No acute intracranial findings. Exam mildly compromised by motion artifact. 2. No calvarial fractures identified. CT neck [CT cervical spine wo con] Stat FINDINGS: Skeletal structures: The skeletal structures are well-mineralized. There is no evidence of fracture or subluxation involving the cervical spine. Vertebral body height and alignment are maintained. The odontoid process and lateral masses are intact. The atlantoaxial articulation is preserved. The spinous processes appear intact. There is mild multilevel facet arthropathy. Intervertebral discs: The disc spaces are well maintained. Central canal: Widely patent. Soft tissues: The prevertebral and paraspinous soft tissues are within normal limits. Calvarium: The visualized calvarium at the skull base appears intact. Brain parenchyma: Partially visualized brain parenchyma at the skull base is within normal limits. Sinuses and mastoids: Retention cysts are partially visualized in the right maxillary antrum measuring up to 2 cm. The mastoid air cells are clear as imaged. Lung apices: Clear as visualized. IMPRESSION: There is no evidence of fracture or subluxation involving the cervical spine. 12/17/23 14:16 CT Abd and Pelvis [CT abd pelvis wo con] Stat FINDINGS: There is a 2.4 cm thick-walled cavitary focus within the base of the left lower lobe on image 87. The right lung base is clear. No acute fractures identified. Degenerative changes within the lower lumbar spine. Distended gallbladder without gallbladder wall thickening. Hepatic steatosis. The unenhanced pancreas, spleen, and adrenal glands unremarkable. Mild bilateral perinephric edema is noted. No ureteral stones. No hydronephrosis. A few bilateral hypodense lesions seen within the kidneys. These are incompletely characterize on this noncontrast study but favor cysts. Dominant right renal lesion measures 2.7 cm. The dominant left renal lesion measures 2.3 cm. Further characterization with a follow-up nonemergent renal ultrasound is recommended. Normal caliber abdominal aorta. No retroperitoneal or pelvic lymphadenopathy. The bladder is unremarkable. There is an abnormal gas and fluid collection loculated between the prostate gland and rectum on image 402 measuring approximately 4.1 x 2.1 cm. There is also abnormal thickening within the right puborectalis sling with a possible small tubular tract extending to the right perianal location. This may represent a right perianal fistula best seen on images 410 through 431. Mild perianal fat stranding is noted. Therefore, the abnormal gas and fluid collection located between the prostate gland and rectum may represent supralevator extension of a perianal fistula with abscess formation. Clinical correlation recommended to exclude the possibility of hydrogel placement in the setting of prior prostate radiation therapy. Suboptimal evaluation for bowel pathology due to the lack of intravenous and oral contrast. However, no evidence for a bowel obstruction. Normal appendix. IMPRESSION: 1. There is an abnormal gas and fluid collection loculated between the prostate gland and rectum measuring approximately 4.1 x 2.1 cm. There is also abnormal thickening within the right puborectalis sling with a possible small tubular tract extending to the right perianal location. Therefore, the abnormal gas and fluid collection located between the prostate gland and rectum may represent supralevator extension of a right-sided perianal fistula with abscess formation. Clinical correlation recommended to exclude the possibility of hydrogel placement in the setting of prior prostate radiation therapy which could also account for this abnormal gas and fluid collection posterior to the prostate gland. 2. Mild bilateral perinephric edema. This may be chronic. Recommend correlation with urinalysis to exclude the possibility of a pyelonephritis. 3. Distended gallbladder. No gallbladder wall thickening. 4. Bilateral renal hypodense lesions. These are technically indeterminate on this study but favor cysts. Follow-up nonemergent renal ultrasound recommended for confirmation. 5. A 2.4 cm thick-walled cavitary focus within the base of the left lower lobe. This could represent a cavitary pneumonia. However, [address] follow-up recommended to ensure resolution. 6. Additional findings as described above. ACT 112: Positive. There are findings on this exam that require communication between the performing entity and the patient following Patient Test Result Information Act ([place] Act 112) guidelines. 12/17/23 17:57 CT chest diagnostic wo con Urgent FINDINGS: Lungs: There is a 2.8 cm cavitary lesion of the base of the left lung with the rim measuring 0.9 cm. Interseptal thickening could relate to atelectasis and/or pulmonary edema. No mass. Pleural space: Unremarkable. No pneumothorax. No significant effusion. Heart: Unremarkable. No cardiomegaly. No significant pericardial effusion. No significant coronary artery calcifications. Bones/joints: There are degenerative changes of the spine. No acute fracture. No dislocation. Soft tissues: Unremarkable. Vasculature: Minimal atherosclerotic disease. No thoracic aortic aneurysm. Lymph nodes: Unremarkable. No enlarged lymph nodes. IMPRESSION: 1. There is a 2.8 cm cavitary lesion of the base of the left lung with the rim measuring 0.9 cm. This is concerning for cavitary malignancy, less likely cavitary pneumonia. 2. Interseptal thickening could relate to atelectasis and/or pulmonary edema. 3. Minimal atherosclerotic disease. 12/20/23 12:19 US venous doppler LE RT Routine FINDINGS: The common femoral vein is patent and normally compressible. Occlusive deep venous thrombosis is seen from extending from the proximal superficial femoral vein, through the popliteal vein, and into the calf vessels The greater saphenous vein and the profunda femoris vein at the junction with the common femoral vein are clear. IMPRESSION: Extensive occlusive deep venous thrombosis throughout the right low er extremity as above. Hospital Course (1) Encephalopathy: - likely secondary to sepsis - CT head negative for any acute intracranial abnormality - UDS negative - resolved, mental status back to baseline (2) Sepsis: MRSA bacteremia Patient presents tachycardic, febrile, with temperature 38.1 C, white blood cell count 24.9 K Procalcitonin elevated Biofire - negative Blood cultures - posit. for MRSA Urine culture - MRSA Received cefepime and vancomycin in the ED, currently on vancomycin and zosyn Cavitary lesion noted at left lower lung (on CT abd/pelvis) obtained chest CT to further evaluate - 1. There is a 2.8 cm cavitary lesion of the base of the left lung with the rim measuring 0.9 cm. This is concerning for cavitary malignancy, less likely cavitary pneumonia. 2. Interseptal thickening could relate to atelectasis and/or pulmonary edema. 3. Minimal atherosclerotic disease. Etiology of cavitary lesion is not clear. Patient is supposed to have a PET/CT done as an outpatient. ID also consulted, as below. Abscess - perirectal/periprostatic - gas and fluid collection loculated between the prostate gland and rectum measuring approximately 4.1 x 2.1 cm. poss. 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 - Discussed with urology (Dr. Turk) and gen. surgery (Dr. Simpson) - would recommend to discuss with IR for poss. drainage / poss. tertiary center for further eval and transfer - contacted [facility] - per IR collection too small for drainage and per surgery no need for acute surgical intervention unless IR can drain it -> therefore no need for transfer, they agree with ICU admission and further work up and treatment of sepsis - cont. broad spectrum antibiotics, ID consulted Recommendations: - Continue IV vancomycin (dosing per Rx) - Continue pip-tazo 4.5 IV q8h for now - Obtain TTE - as below - no vegetations -? KIERSTEN obtained today (12/21/2023) - small mitral valve vegetation - Repeat BCx daily until clear x48h - If persistent fevers/leukocytosis, low threshold to reimage perirectal abscess. If persistent/increasing then recommend radiology reevaluation for possible aspiration. If obtaining, please send for bacteria/fungal/AFB cultures and stains. - Given LLL cavitary lesion, send quantiferon, Histo UrAg, CrAg, BDG, Asper gillus Ag, Blasto Ab - If develops cough or respiratory Sx then would send sputum bacterial/Nocardia/fungal/AFB Cx and low threshold for AFB respiratory evaluation (3x sputa and MTB PCR) - Current planned for outpatient PET/CT to further evaluate LLL cavitation - Would continue to monitor closely for s/sx of metastatic spread of MRSA infection (joint pain, back pain) with low threshold to image/evaluate - F/u 12/16 UCx, BCx - posit. MRSA TTE - Echo - w/o vegetations, LV is normal in size. Mild concentric LVH. No regional wall motion abnormalities noted. EF 60 to 65%. There is no visualized valvular vegetation within limitations of transthoracic study of fair technical quality. Blood cultx 12/16, 12/17, 12/18 - posit. for MRSA Blood cultx 12/19 - pending Given persistent blood cultx - KIERSTEN obtained today (12/21/2023) - small mitral valve vegetation R calf edema, tenderness RLE DVT RLE poss. abscess, poss. osteomyelitis, poss. lymphoma? - R calf edema, pain - somewhat chronic issue, but seems worse per pt - obtained Doppler - posit. for DVT - IV heparin started (12/20/2023) - evaluated by orthopedic oncology at [facility], by Dr. Sebas Sheridan day prior admission for RLE pain. Patient has history of right distal thigh/knee pain. Patient had x-ray and MRI done. Right femur x-ray consistent with lytic bone lesion of right distal femoral metaphysis and epiphysis. 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 Per radiology suggestion, also possibility of osteomyelitis. It was recommended that patient would have a biopsy, which was scheduled for December 18, 2023. PET scan scheduled for December 21. - given persistent bacteremia - concern for RLE infection/ abscess/ osteo - pt will need further prompt orthopedic evaluation. [facility] contacted and pt will be transferred there for further eval and care. (3) DICK (acute kidney injury): - Cr elevated at 2.2, likely secondary to sepsis - cont. to closely monitor renal function, urine output - avoid nephrotoxic agents - Cr now improved to 0.9 (4) Hyponatremia: - with hypochloremia - received IVF NS in the ED - pt seemed dehydrated - cont. to closely monitor BMP - Na improved, Cl level improved AGMA - likely secondary to lactic acidosis - lactate improved after IVF - cont. to monitor - resolved, cont. to monitor Anemia - Hgb 9.0 on admission >> 7.4 - cont. to monitor H&H - FOBT - negative - peripheral smear - pending Total Time Total Time Spent Total Time Spent (In Minutes): 60 Discharge Plan Discharge Items Patient Disposition: Transfer Acute Care Hospital Reason For Visit: ENCEPHALOPATHY, DICK Discharge Diagnosis: Encephalopathy secondary to sepsis Sepsis MRSA bacteremia - persistent mitral valve vegetation (small) lung - cavitary lesion perirectal abscess RLE DVT RLE lesion - infection vs. neoplasm Activity: Per Instructions section Non-emergency contact: Hospitalist, Surgeon, Specialist and Chief Deputy Clerk/Bailiff Call non-emergency contact if: you have any medication questions and your symptoms worsen Follow-up/Referrals: Raul Still MD [Primary Care Provider] - Diet: Regular Addtl Attending Provider Instructions: Pt presented with encephalopathy, found to be bacteremic with MRSA. Multiple possible sources of infection identified however pt only complains of RLE pain, for which he has been seen earlier by orthopedics at [facility]. He has been on IV vancomycin and IV zosyn. He was also found to have RLE DVT and was started on IV heparin. Today KIERSTEN was performed d/t persistent MRSA bacteremia and was found to have small mitral valve vegetation. Pt will be transferred to [facility] for further evaluation and care. Pending Studies at Discharge: Yes Studies:: blood cultx results Stand-Alone Forms: [facility] Skilled Items Patient informed of condition?: Yes DNR: No Discharge Level of Care: Other Communicable Disease: No Discharge Prognosis: Other Lines: Peripheral IV Urinary Catheter: No Medications and DC Order Prescriptions: Continued atenolol 25 mg tablet 25 mg PO QAM Held chlorthalidone 25 mg tablet 25 mg PO QAM Hold Instructions: Resume on 12/28/23. enalapril maleate 10 mg tablet 10 mg PO QAM Hold Instructions: Resume on 12/28/23. Rx Instructions: TAKE WITH 20MG EVERY MORNING = 30MG DAILY naproxen 500 mg tablet 500 mg PO BID PRN (Reason: Pain) Hold Instructions: Resume on 12/28/23. simvastatin 20 mg tablet 20 mg PO HS Hold Instructions: Resume on 12/28/23. enalapril maleate 20 mg tablet 20 mg PO QAM Hold Instructions: Resume on 12/28/23. Rx Instructions: TAKE WITH 10MG EVERY MORNING = 30MG DAILY DOSE Discharge Orders: Discharge Order (Routine); Ordered 12/21/23 Ordered By: Henrique Jean Admission Data Admit Date/Time: 12/17/23 18:57 Attending Provider: Henrique Jean Admit Provider: Henrique Jean Primary Care Provider: Raul Still Other Providers: Galindo Armstrong; Henrique Jean; Raf Turk; Sebastian Simpson; Justine Arreola; Jami Vallejo; Carroll Perez; Emani Espinoza; Brie Bridges; Sigrid Prabhakar; Brittani Casper; Radha Flannery; Simon Sewell; Jeremiah Quevedo; [facility]
--- NOTE | 2023-12-21 19:04 | Infectious Disease Progress Nt ---
Date of Service December 21, 2023 Assessment & Plan (1) MRSA bacteremia: (2) Abscess, perianal: (3) Cavitary lesion of lung: (4) Sepsis: (5) Lytic lesion of bone on x-ray: Plan Rogelio Barrera is a 57-year-old man with history of HTN, dyslipidemia, lumbosacral DDD, undergoing workup for R distal femur lytic lesion (seen on MRI 12/11/23, malignancy vs. ?osteomyelitis), who presents to [facility] ED on 12/17/23 with altered mental status, found to have sepsis, BCx + MRSA, and CT pelvis showing 4.1 x 2.1 cm abscess between prostate/rectum, thickening of R puborectalis sling and possible tract to perianal location c/f perianal fistula with abscess. Also found to have LLL 2.8 cm cavitary lesion with 9 mm rim. ID is consulted for MRSA bacteremia, prostatic/rectal/perianal abscess, and LLL cavitary lesion. Pt with MRSA bacteremia of unclear source. Has perirectal abscess as possible source though without Cx data from abscess though would also expect GNRs/anaerobes to be possible from such an infectious site. Would evaluate for endovascular infection and would obtain TTE. Repeat BCx daily until clear x48h to confirm clearance. Pt also has LLL cavitary lesion and R knee lytic lesion evaluating as below but unclear if involved in MRSA bacteremia. Would continue to monitor closely for s/sx of metastatic spread of MRSA infection (joint pain, back pain) with low threshold to image/evaluate. Appreciate urology and surgery evaluation. Per urology appears more perirectal than prostatic, not amenable to transurethral procedure. Per surgery recommending conservative management with abx and possible IR/transrectal drainage. Per radiology on 12/17, abscess is too small for aspiration. If persistent fevers/leukocytosis, low threshold to reimage perirectal abscess. If persistent/increasing then recommend radiology reevaluation for possible aspiration. If obtaining, please send for bacteria/fungal/AFB cultures and stains. CT also showing mild bilateral perinephric edema c/f pyelonephritis will follow UCx. LLL cavitary lesion of unclear etiology currently ddx includes malignancy, and infectious ddx including bacterial (perhaps from aspiration), fungal, and TB/NTM. Would send quantiferon, Histo UrAg, CrAg, BDG, Aspergillus Ag, Blasto Ab. If develops cough or respiratory Sx then would send sputum bacterial/Nocardia/fungal/AFB Cx and low threshold for AFB respiratory evaluation (3x sputa and MTB PCR). Septic emboli considered but less likely given solitary lesion. Currently planned for outpatient PET/CT but if becomes symptomatic and etiology remains unclear then may consider bronch/BAL. Also with R knee lytic lesion ddx including malignancy and osteomyelitis. Unclear whether this is involved in his current presentation, but low threshold to reimage. Was scheduled for an outpatient bone Bx which was missed. Would continue IV vancomycin for the MRSA bacteremia. Given septic shock and perirectal abscess, would continue pip-tazo for now. Unfortunately no culture data from perirectal abscess to guide therapy as GNRs/anaerobes are possible may consider narrowing (e.g., ceftriaxone/metronidazole) in the coming days. 12/21/23: 12/19 Blood cultures in lab KIERSTEN: 0.5 cm x 0.3 cm mobile echodensity on the left atrial aspect of the P1 scallop of the posterior mitral valve leaflet consistent in appearance with a small vegetation. There is trace mitral regurgitation. The aortic, tricuspid and pulmonic valves are adequately visualized with no significant abnormality. ID Problem List: # MRSA bacteremia - 12/16, 12/17 BCX positive, Vanco SHARRI is PENDING # MV endocarditis 0.5 x 0.3 cm density, trace MR # Prostatic/rectal/perianal abscess - 4.1 x 2.1 cm abscess between prostate/rectum, thickening of R puborectalis sling and possible tract to perianal location c/f perianal fistula with abscess # Left lower lobe cavitary lesion of lung # R knee lytic lesion # Possible UTI/pyelonephritis # Sepsis Recommendations: - Continue IV vancomycin (dosing per Rx) [place], mitral valve endocarditis --> Pharm following to ensure Vanc AUC/limits at goal - Continue pip-tazo 4.5 IV q8h for now - Blood cultures 12/19 in lab, order set in am - Repeat BCx daily until clear x48h -Await MRSA Vanco SHARRI - If persistent fevers/leukocytosis, low threshold to reimage perirectal abscess. If persistent/increasing then recommend radiology reevaluation for possible aspiration. If obtaining, please send for bacteria/fungal/AFB cultures and stains. - I suspect cavity may be in setting of bacteremia seeding but will follow pulm status closely bacterial/Nocardia/fungal/AFB Cx and low threshold for AFB respiratory evaluation (3x sputa and MTB PCR) - Current planned for outpatient PET/CT to further evaluate LLL cavitation Follow closely with you Emani Espinoza MD Infectious Diseases [facility] [employer] Admission and Anticipated Discharge Date Admission Date: December 17, 2023 Subjective This patient recommendation is based on a telemedicine consult request which was completed asynchronously through chart review and information provided by the primary physician. The patient was not seen or examined today. The evaluation is consultative in nature and all patient care and treatment decisions can either be accepted or rejected by the patient's primary hospital-based treating physician using their own independent medical judgment for their patient. Time Spent Reviewing Chart: 21 - 30 minutes Results & Data Vital Signs (Past 12 Hours) Vital Signs Temp Pulse Resp BP Pulse Ox O2 Del Method 12/21/23 18:53 36.9 C 76 20 112/67 91 12/21/23 15:13 36.9 C 76 20 112/67 91 Room Air 12/21/23 13:59 37.0 C 76 16 114/61 96 Room Air 12/21/23 13:55 78 16 102/62 99 Room Air 12/21/23 13:40 72 16 101/55 L 99 Room Air 12/21/23 12:54 90 16 143/71 H 90 Room Air 12/21/23 10:30 37.2 C 82 19 130/69 91 Room Air 12/21/23 08:19 Room Air 12/21/23 07:25 37.3 C 89 19 131/70 91 Room Air Laboratory Results BMP 12/21/23 04:25 Sodium 130 L Potassium 3.5 Chloride 97 L Carbon Dioxide 27 BUN 12 Creatinine 0.87 Glucose 126 H Calcium 7.8 L
[2023-12-23] MEDS ORDERED: VANCOMYCIN LEVEL ONE (05:30)
[2023-12-24 02:08] LABS: Aspergillus Ag Index 0.07 (<0.50); Aspergillus Antigen, Serum Not Detected (Not Detected); Cryptococcal Antigen Not Detected (Not Detected); Fungitell (1-3)-B-D-Glucan <31 pg/mL; Source Serum
[2023-12-24 17:12] LABS: Uric Acid, Random Urine 21 mg/dL (see note)
== END 2023-12-21 20:05 | disposition short-term general hospital (02) | DRG 871 ==
LOC: ED 12:54 → EDBD 12:54 → 1E 18:57 → 4W 12-19 13:57

== ENCOUNTER 2024-01-05 10:45 | Inpatient (IN) ==
--- NOTE | 2024-01-05 11:09 | Emergency Department Note ---
Impression & Plan Acute confusion, DICK (acute kidney injury), Sepsis, Septic joint of right knee joint, Hypomagnesemia ED Provider Note HISTORY OF PRESENT ILLNESS: Patient is a 58-year-old male presenting with confusion. Niece provides history. Reports the patient was just discharged from [facility] 3 days ago (on 01/02/2024) after being admitted for sepsis, endocarditis,and septic right knee. He has been discharged with a PICC line and is on daptomycin. He received daptomycin this morning with home health nurse. Niece reports that today she has been acting "erratically and confused." She reports he was like this when he was septic. No reported fevers. Patient denies any complaints on arrival to the ER. He denies any chest pain or shortness of breath. He does report that he struck the medial side of his right knee when he is up going to the bathroom. Denies any dysuria or hematuria. Denies any nausea or vomiting. Denies any diarrhea. Patient has a history of DVT and is on Eliquis. Patient denies any recent falls or head injury. Patient's niece provides further history when she arrives. States that the patient woke up today and was more confused than normal. States that he was like this when he was diagnosed with sepsis and endocarditis. States that the patient had a more swollen and erythematous right leg today. Reports that the patient received a dose of daptomycin prior to coming into the emergency department today. ROS: as above PHYSICAL EXAM: Constitutional: Patient appears in no acute distress. HENT: Head: Normocephalic and atraumatic. Eyes: EOMI, PERRL Mouth/Throat: Mucous membranes moist. Neck: Trachea midline. Neck supple. Cardiovascular: RRR, No murmurs, rubs or gallops. Intact distal pulses. Pulmonary/Chest: No respiratory distress. Breath sounds clear and equal bilaterally. No wheezes or rales. No chest wall tenderness to palpation. Abdominal: Abdomen soft, no tenderness, rebound or guarding. Musculoskeletal: - RLE: Patient has sutures in place to the lateral portion of the right knee. Right leg is edematous with +2 edema leg is diffusely erythematous. Patient has any slightly flexed to 45 degrees. When it is passively extended the patient is complaining of some pain in the joint. Intact DP pulse Skin: Warm and dry. No rash, erythema, pallor or cyanosis Psychiatric: Appropriate mood and affect for situation. Neurological: Alert and keenly responsive. CN II-XII grossly intact, moving all extremities equally and fully. MDM: - Vitals signs showed hypertension and tachycardia. - History obtained via patient and patient's niece. History as above. - Chronic conditions affecting care: HTN; HLD; DVT in RLE; endocarditis of mitral valve; OFELAI - Differential diagnoses include, but are not limited to: sepsis; CVA; pneumonia; UTI; bacteremia; septic joint; cellulitis - Order placed for continuous cardiac monitoring. At this time, monitor showed rate of 100 bpm with normal sinus rhythm, per my interpretation. - External medical records reviewed. Discharge summary from [facility] dated 01/02/2024 was reviewed. Patient underwent incision and drainage of his right distal femur osteomyelitis and placement of antibiotic beads on 12/25/2023. He was continued on vancomycin for MRSA bacteremia with infective endocarditis. Patient developed DICK during his stay and was found to have acute tubular necrosis. His antibiotics were switched to daptomycin given his kidney function. He continues to have nonoliguric DICK with creatinine plateauing at 3.2. He was also found to have an occlusive right lower extremity DVT. He developed anemia from iron deficiency anemia and acute blood loss anemia and received 1 unit of packed red blood cells. He also received Venofer x 3 doses for iron deficiency. His hemoglobin on day of discharge was 7.2. He was transition to Eliquis for his DVT. - EKG interpreted by myself showed normal sinus rhythm. Rate 92 bpm. QT 364. No acute ischemic changes. - Laboratory workup interpreted by myself showed normal WBC; anemia (Hgb 8.2); hyponatremia (Na 135); DICK (Cr 3.33); normal lactate; hypomagnesemia (Mg 1.5); normal troponin; normal procalcitonin - CXR negative for pneumonia, per my interpretation - Xray right knee showed no acute fracture or dislocation. Noted to have a small to moderate knee effusion and diffuse soft tissue swelling. - VBG grossly normal - UA ordered - COVID/Flu/RSV negative - Patient received daptomycin earlier today. - Blood cultures obtained - Given hx of MRSA bacteremia and worsening symptoms, decision was made to add 2 g of IV Rocephin to patient's antibiotic regimen to broaden coverage. - Patient was very confused and became very agitated in the emergency department. He was given 1 mg of IV Ativan. - Attempted to take patient for CT head wo contrast, but he was still very agitated. He was given 2.5 mg of IV droperidol. - CT head wo contrast negative for acute intracranial pathology. - Patient's right knee is red and swollen and his symptoms are similar to his presenting symptoms a few weeks ago at the onset of his diagnoses, decision was made to call [facility]. He also just had surgical I&D with their orthopedic team I&D with their orthopedic team on 12/25/2023. - Discussed case with Dr. Nate Young, system triage physician [facility] at 1338. He accepted the patient for transfer at 1342. He states that Dr. brewer will be contacted when a bed is available. Patient will be admitted to hospitalist Dr. Jordan iFnney's service once bed becomes available. - Discussion was had with case worker about patient's case and need for admission - Hospitalist consulted for admission - Patient admitted to [facility] hospitalist service for further evaluation and management. 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 Required: No Beliefs That Will Affect Care: None Current Living Situation: Family Feels Safe at Home: Yes Assistive Devices: Bedside Commode and Walker Allergies Allergies Allergy/AdvReac Type Severity Reaction Status Date / Time No Known Allergies Allergy Unverified 01/05/24 12:24 Home Meds Home Medications Medication Instructions Recorded Confirmed enalapril maleate 10 mg tablet 10 mg PO QAM 12/17/23 01/05/24 naproxen 500 mg tablet 500 mg PO BID PRN Pain 12/17/23 01/05/24 simvastatin 20 mg tablet 20 mg PO HS 12/17/23 01/05/24 Daptomycin Iv 650 m IV Q OTHER DAY 01/05/24 01/05/24 apixaban 5 mg tablet (Eliquis) 5 mg PO BID 01/05/24 01/05/24 baclofen 20 mg tablet 20 mg PO DAILY PRN muscle spasms 01/05/24 01/05/24 ferrous sulfate 325 mg (65 mg 325 mg PO QAM 01/05/24 01/05/24 iron) tablet Results & Data (ED) Vital Signs Vital Signs - 24 hr 01/05/24 10:48 01/05/24 10:57 01/05/24 11:11 Temperature 36.9 C Temperature Source Temporal Artery Scan Pulse Rate 93 H 100 H Pulse Rate [Apical] Respiratory Rate 18 Respiratory Effort / Characteristics Non-Labored Spontaneous Respiratory Depth Normal Respiratory Pattern Regular Blood Pressure 154/73 H Blood Pressure [Right Arm] Blood Pressure Mean 100 Blood Pressure Mean [Right Arm] Blood Pressure Position Sitting Blood Pressure Position [Right Arm] Pulse Oximetry 100 99 Oxygen Delivery Method Room Air Room Air Sepsis Recent Fever Within 48 Hours No Sepsis New/Unexplained Change in Mental Status N/A Sepsis Action Taken by Nursing No Action Required 01/05/24 11:27 01/05/24 11:33 01/05/24 12:16 Temperature 36.9 C Temperature Source Oral Pulse Rate Pulse Rate [Apical] 102 H 81 Respiratory Rate 20 18 Respiratory Effort / Characteristics Non-Labored Spontaneous Non-Labored Spontaneous Respiratory Depth Normal Normal Respiratory Pattern Regular Regular Blood Pressure Blood Pressure [Right Arm] 144/67 H 142/82 H Blood Pressure Mean Blood Pressure Mean [Right Arm] 92 102 Blood Pressure Position Blood Pressure Position [Right Arm] Lying Sitting Pulse Oximetry 98 95 Oxygen Delivery Method Room Air Room Air Room Air Sepsis Recent Fever Within 48 Hours Sepsis New/Unexplained Change in Mental Status Sepsis Action Taken by Nursing 01/05/24 13:45 01/05/24 14:34 01/05/24 15:00 Temperature Temperature Source Pulse Rate Pulse Rate [Apical] 101 H 99 H 98 H Respiratory Rate 20 18 18 Respiratory Effort / Characteristics Non-Labored Spontaneous Non-Labored Spontaneous Non-Labored Spontaneous Respiratory Depth Normal Normal Normal Respiratory Pattern Regular Regular Regular Blood Pressure Blood Pressure [Right Arm] 124/97 139/68 141/87 H Blood Pressure Mean Blood Pressure Mean [Right Arm] 106 91 105 Blood Pressure Position Blood Pressure Position [Right Arm] Lying Sitting Lying Pulse Oximetry 99 Oxygen Delivery Method Room Air Sepsis Recent Fever Within 48 Hours Sepsis New/Unexplained Change in Mental Status Sepsis Action Taken by Nursing Laboratory Data 01/05/24 11:22 01/05/24 11:22 Lab Results 01/05/24 01/05/24 Range/Units 11:22 13:55 WBC 10.08 (4.8-10.8) K/ul RBC 3.08 L (4.70-6.10) M/uL Hgb 8.2 L (14.0-18.0) g/dl Hct 26.8 L (42.0-52.0) % MCV 87.0 (80.0-100.0) fL MCH 26.6 (25.0-34.0) pg MCHC 30.6 L (32.0-36.0) g/dL RDW Std Deviation 61.1 H (36.4-46.3) fL RDW Coeff of Xavier 19.5 H (11.5-14.5) % Plt Count 470 H (130-400) K/uL MPV 10.2 (9.4-12.4) fL Immature Gran % (Auto) 0.7 % Neut % (Auto) 80.0 % Lymph % (Auto) 11.1 % Day % (Auto) 7.5 % Eos % (Auto) 0.0 % Baso % (Auto) 0.7 % Neut # (Auto) 8.06 H (1.40-6.50) K/uL Lymph # (Auto) 1.12 L (1.20-3.40) K/uL Day # (Auto) 0.76 H (0.11-0.59) K/uL Eos # (Auto) 0.00 (0.00-0.50) K/uL Baso # (Auto) 0.07 (0.00-0.20) K/uL Immature Gran # (Auto) 0.07 (0.01-0.20) K/uL PT 12.6 H (9.0-12.0) Seconds INR 1.2 H (0.9-1.1) VBG pH 7.44 H (7.36-7.41) VBG pCO2 38 (38-50) mmHg VBG pO2 34 mmHg VBG HCO3 26 mmol/L VBG O2 Saturation < 60.0 % VBG Base Excess 1.6 mEq/L Sodium 135 L (136-145) mmol/L Potassium 4.2 (3.5-5.1) mmol/L Chloride 101 (98-107) mmol/L Carbon Dioxide 22 (21-32) mmol/L Anion Gap 12 H (3-11) BUN 28 H (6-23) mg/dl Creatinine 3.33 H (0.6-1.4) mg/dl Est Cr Clr Drug Dosing 28.2 ml/min Est GFR ( Amer) 22.5 ml/min Est GFR (Non-Af Amer) 19.4 ml/min BUN/Creatinine Ratio 8.4 L (10-20) Glucose 106 H (70-99(Fasting)) mg/dl Lactate 1.6 (0.4-2.0) mmol/L Calcium 8.5 L (8.6-10.3) mg/dl Magnesium 1.5 L (1.7-2.4) mg/dl Total Bilirubin 0.5 (0.2-1.0) mg/dl Direct Bilirubin 0.2 (0-0.2) mg/dl AST 20 (13-39) U/L ALT 19 (7-52) U/L Alkaline Phosphatase 111 H (34-104) U/L Troponin I High Sens 16.0 (0-20) pg/ml Total Protein 7.4 (6.0-8.3) gm/dl Albumin 2.9 L (3.4-5.0) gm/dl Procalcitonin 0.16 (0-0.5) ng/ml SARS-CoV-2 (PCR) NEGATIVE (Negative) Influenza Type A (PCR) Negative (Neg) Influenza Type B (PCR) Negative (Neg) RSV (RT-PCR) Negative (Neg) Administered Medications Discontinued Medications Droperidol (Droperidol 5 Mg/2 Ml Vial) 2.5 mg IV ONE STA Stop: 01/05/24 14:40 Last Admin: 01/05/24 14:45 Dose: 2.5 mg Documented By: TNK Sodium Chloride (Nss) 1,000 mls @ 999 mls/hr IV .Q1H1M ONE Stop: 01/05/24 13:34 Last Infusion: 01/05/24 13:51 Dose: Infused Documented By: Admin: 01/05/24 12:44 Dose: 999 mls/hr Documented By: FRANK Magnesium Sulfate/Dextrose (Magnesium Sulfate / D5w) 1 gm in 100 mls @ 100 mls/hr IV NOW STA Stop: 01/05/24 13:33 Last Infusion: 01/05/24 13:50 Dose: Infused Documented By: Admin: 01/05/24 12:44 Dose: 100 mls/hr Documented By: FRANK Ceftriaxone Sodium (Rocephin) 2,000 mg in 50 mls @ 100 mls/hr IV NOW STA Stop: 01/05/24 14:00 Last Infusion: 01/05/24 14:37 Dose: Infused Documented By: Admin: 01/05/24 13:56 Dose: 100 mls/hr Documented By: THEA Lorazepam (Lorazepam 1 Mg/1 Ml Syr Ed Inj Use) 1 mg IV ONE STA Stop: 01/05/24 13:14 Last Admin: 01/05/24 13:17 Dose: 1 mg Documented By: THEA Imaging Data Radiologist's Impression: Chest X-Ray 01/05/24 10:57 SINGLE VIEW CHEST CLINICAL HISTORY: Sepsis. FINDINGS: An AP, portable, upright chest radiograph is compared to chest x-ray and chest CT dated 12/17/2023. A right internal jugular central venous catheter is new from previous. The tip projects at the cavoatrial junction. The heart is enlarged. The pulmonary vasculature is noncongested. There is bibasilar scarring/atelectasis. No airspace consolidation or large pleural effusion is identified. No pneumothorax is seen. The skeletal structures are osteopenic. The bony thorax is grossly intact. IMPRESSION: Cardiomegaly with no acute cardiopulmonary abnormality identified. ACT 112: Negative or not required by law. Electronically signed by: Jose Shrestha M.D. 01/05/2024 11:37 AM Knee X-Ray 01/05/24 13:41 XR knee RT 3V CLINICAL HISTORY: R knee pain and swelling COMPARISON STUDY: None. FINDINGS: Cement beads noted within the distal right femur. No fracture or dislocation within the right knee. There is a small to moderate right knee effusion. There is diffuse soft tissue swelling. Mild cartilage space narrowing within the medial compartment of the knee. There is heterogeneous appearance to the distal right femur which extends to the articular surfaces of the distal femur. There is also subtle irregularity at the patellar articular surfaces. IMPRESSION: 1. No acute fracture or dislocation within the right knee. 2. Small to moderate right knee effusion. 3. Diffuse soft tissue swelling. 4. Cement beads noted within the distal right femur with heterogeneous appearance to the distal right femur extending to the articular surfaces. This is consistent with age indeterminate osteomyelitis. The joint effusion and soft tissue swelling raises the possibility of an associated septic arthritis. ACT 112: Negative or not required by law. Electronically signed by: Jimmie Castellanos M.D. 01/05/2024 2:[address] 01/05/24 14:[address] DOSE: 625.8 mGy.cm HISTORY: confusion TECHNIQUE: Multiaxial CT images of the head were performed without the use of intravenous contrast. Automated exposure control was utilized for this study. A dose lowering technique was utilized adhering to the principles of ALARA. Comparison: Head CT 12/09/2023. Findings: The paranasal sinuses and mastoid air cells are clear. The calvarium and skull base are intact. The ventricles and sulci are within normal limits. There is no mass, hematoma, midline shift, or acute infarct. Impression: No acute intracranial abnormality. ACT 112: Negative or not required by law. Electronically signed by: Jimmie Castellanos M.D. 01/05/2024 3:34 PM Discharge Plan Visit Data Chief Complaint: Confusion Stated Complaint: CONFUSION ED Provider: Kaylie Holguin Discharge Problem: Acute confusion, DICK (acute kidney injury), Sepsis, Septic joint of right knee joint, Hypomagnesemia Forms Stand Alone Forms: [facility] [employer] Prescriptions Prescriptions: No Action enalapril maleate 10 mg tablet 10 mg PO QAM Hold Instructions: Resume on 12/28/23. Rx Instructions: TAKE WITH 20MG EVERY MORNING = 30MG DAILY naproxen 500 mg tablet 500 mg PO BID PRN (Reason: Pain) Hold Instructions: Resume on 12/28/23. simvastatin 20 mg tablet 20 mg PO HS Hold Instructions: Resume on 12/28/23. baclofen 20 mg tablet 20 mg PO DAILY PRN (Reason: muscle spasms) ferrous sulfate 325 mg (65 mg iron) tablet 325 mg PO QAM Rx Instructions: with breakfast Eliquis 5 mg tablet 5 mg PO BID Daptomycin Iv 650 m IV Q OTHER DAY Rx Instructions: Do not srtart before December, 17 doses Referrals Referrals: Raul Still MD [Primary Care Provider] -
[2024-01-05 11:37] LABS: Base Excess VBG 1.6 mEq/L; HCO3 VBG 26 mmol/L; Oxygen Saturation VBG < 60.0 %; PCO2 VBG 38 mmHg (38-50); PO2 VBG 34 mmHg; pH VBG 7.44 (7.36-7.41)
--- NOTE | 2024-01-05 11:38 | XRay Report ---
SINGLE VIEW CHEST CLINICAL HISTORY: Sepsis. FINDINGS: An AP, portable, upright chest radiograph is compared to chest x-ray and chest CT dated 11/20. A right internal jugular central venous catheter is new from previous. The tip projects at th e cavoatrial junction. The heart is enlarged. The pulmonary vasculature is noncongested. There is bib asilar scarring/atelectasis. No airspace consolidation or large pleural effusion is identified. No pn eumothorax is seen. The skeletal structures are osteopenic. The bony thorax is grossly intact. IMPRESSION: Cardiomegaly with no acute cardiopulmonary abnormality identified. ACT 112: Negative or not required by law. Electronically signed by: Jose Shrestha M.D. 01/05/2024 11:37 AM
[2024-01-05 11:45] LABS: Basophils # (auto) 0.07 K/uL (0.00-0.20); Basophils % (auto) 0.7 %; Hematocrit (blood only) 26.8 % (42.0-52.0); Hemoglobin 8.2 g/dl (14.0-18.0); Immature Granulocytes # (auto) 0.07 K/uL (0.01-0.20); Immature Granulocytes % (auto) 0.7 %; Lymphocytes # (auto) 1.12 K/uL (1.20-3.40); Lymphocytes % (auto) 11.1 %; Mean Corpuscular Hemoglobin 26.6 pg (25.0-34.0); Mean Corpuscular Hgb Conc 30.6 g/dL (32.0-36.0); Mean Platelet Volume 10.2 fL (9.4-12.4); Monocytes # (auto) 0.76 K/uL (0.11-0.59); Monocytes % (auto) 7.5 %; Neutrophils # (auto) 8.06 K/uL (1.40-6.50); Platelet Count 470 K/uL (130-400); RDW Coefficient of Variation 19.5 % (11.5-14.5); RDW Standard Deviation 61.1 fL (36.4-46.3); Red Blood Count 3.08 M/uL (4.70-6.10); White Blood Count 10.08 K/ul (4.8-10.8)
[2024-01-05 11:58] LABS: Albumin Level 2.9 gm/dl (3.4-5.0); BUN Creatinine Ratio 8.4 (10-20); Bilirubin Direct 0.2 mg/dl (0-0.2); Bilirubin,Total 0.5 mg/dl (0.2-1.0); Calcium 8.5 mg/dl (8.6-10.3); Creatinine Clr Calc Pharmacy 28.2 ml/min; Est GFR (African American) 22.5 ml/min; Est GFR (Non-African American) 19.4 ml/min; Magnesium 1.5 mg/dl (1.7-2.4); Potassium 4.2 mmol/L (3.5-5.1); Total Protein 7.4 gm/dl (6.0-8.3)
[2024-01-05 12:11] LABS: INR 1.2 (0.9-1.1); Prothrombin Time 12.6 Seconds (9.0-12.0)
[2024-01-05] MEDS: MAGNESIUM SULFATE / D5W 1 GM/100 ML BAG IV STA (12:44)
[2024-01-05] MEDS: SODIUM CHLORIDE 0.9% 1,000 ML IV ONE (12:44)
[2024-01-05] MEDS: LORazepam 1 MG/1 ML SYR ED Inj Use IV STA (13:17)
--- NOTE | 2024-01-05 13:45 | Electrocardiogram Report ---
Test Reason : Blood Pressure : / mmHG Vent. Rate : 092 BPM Atrial Rate : 092 BPM P-R Int : 158 ms QRS Dur : 104 ms QT Int : 364 ms P-R-T Axes : 059 052 045 degrees QTc Int : 450 ms Normal sinus rhythm Normal ECG When compared with ECG of 17-DEC-2023 13:15, T wave amplitude has increased in Lateral leads Confirmed by Archie Power ([id number]) on 01/05/2024 1:44:55 PM Referred By: REFERRED SELF Confirmed By:Jani Power
[2024-01-05] MEDS: cefTRIAXone SODIUM 2,000 MG/50 ML BAG IV STA (13:56)
[2024-01-05] MEDS ORDERED: POLYETHYLENE (MIRALAX) 17 GM PACK PO PRN (14:18)
[2024-01-05] MEDS ORDERED: ACETAMINOPHEN 325 MG TAB PO PRN (14:18)
[2024-01-05] MEDS ORDERED: ONDANSETRON INJ 2 MG/ML 2 ML VIAL IV PRN (14:18)
[2024-01-05] MEDS ORDERED: MAGNESIUM HYDROXIDE SUSP 30 ML UDC PO PRN (14:18)
[2024-01-05] MEDS ORDERED: ALUMINUM/MAGNESIUM SUSP 30 ML UDC PO PRN (14:18)
--- NOTE | 2024-01-05 14:36 | History & Physical Report ---
Date of Service January 05, 2024 Assessment & Plan (1) Hypertension: (2) Dyslipidemia: (3) DICK (acute kidney injury): (4) Hypomagnesemia: (5) History of DVT (deep vein thrombosis): Plan: Mr. Barrera is a 58 year old male that presents to the ED today with altered mental status. He has a complex history that most recently includes an i npatient hospitalization here at [facility] with a transfer to [facility] on 12/20 for further evaluation of right knee sepsis and MRSA bacteremia. He underwent an I/D on 12/24 of his right distal femur osteomyelitis and placed on antibiotic beads on 12/25/2023. He initially was started on IV Vancomycin for MRSA bacteremia with infective endocarditis but developed DICK that later turned to be Acute Tubular Necrosis and he was switched to IV Daptomycin. He was discharged home on 01/02/24 with IV Daptomycin to be administered through his PICC with Home Health. He continues to have nonoliguric DICK with creatinine at 3.33. He was also found to have an occlusive RLE DVT . He was transition to [facility] for his DVT upon discharge. No leukocytosis, hemoglobin 8.2, creatinine 3.33, normal lactate, hypomag 1.5, normal troponin and normal procalcitonin. CXR negative for pneumonia or acute cardiopulmonary disease, right knee x-ray revealed no acute dislocation or fracture however small to moderate knee effusion and diffuse soft tissue swelling noted. Head CT negative for acute intracranial pathology. Last admission a KIERSTEN was performed with the following results: 0.5 x 0.3 echodensity MV leaflet with small vegetation noted and trace MR. 4/1 echo EF 55 to 60% with LV wall motion normal. Last admission right femur x-ray consistent with lytic bone lesion of right distal femoral metaphysis and epiphysis. 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 Per radiology suggestion, also possibility of osteomyelitis. It was recommended that patient would have a biopsy, which was scheduled for December 18, 2023. Lengthy conversation held with infectious disease, Dr. Boggs, who indicated that he would like Vanco trough ordered and would hold all antibiotics as he suspects this is possibly supratherapeutic due to previous Vanco and uremia causing AMS. He suggested monitoring off everything to see how he responds over the next 24 hours. He did take his AM dose of Daptomycin administered by home health and was given Rocephin 2G in the ED, along with Ativan. ED did discuss this individuals case with Chase Gallegos directly and agreed for transfer to a tertiary care facility. Accepting Hospitalist is Dr. Jordan Finney. Unfortunately, transfer is limited logistically due to transportation/bed. Likely transfer 01/05/24. For now, continue to provide supportive care for sepsis with continued IV abx, IV fluids, monitoring, Ortho consult placed in case patient is not transferred in a timely setting. Infectious Disease and Nephro consult placed. Transfer paperwork has been completed. Transfer center did not have a bed as of 1740 on 01/04 and this was communicated to brennan. Sepsis: AMS: Acute tachycardia, fever, no leukocytosis, lactate normal blood cultures ordered and pending MRSA bacteremia. He underwent an I/D on 12/24 of his right distal femur osteomyelitis and placed on antibiotic beads on 12/25/2023. IV Vancomycin for MRSA bacteremia with infective endocarditis but developed DICK that later turned to be Acute Tubular Necrosis and he was switched to IV Daptomycin. Home health administered IV daptomycin today; started on 01/01 for 17 days course Rocephin administered in ED CPK ordered Vanco Trough ordered Sutures in place to lateral portion of right knee. Right knee edematous with +2 LE edema and diffuse erythema. Low threshold for clot burden due to being on Eliquis Repeat echo to determine any worsening vegetation Orthopedics consult placed ID consult placed DICK: Uremia: Acute Serum Creatinine 3.33 LR @ 125ml/hour x2 bags Nephrology consult placed Hypomagnesemia: Acute Serum Mg+ 1.5; 1 g administered in ED; recheck in a.m. History of DVT: Takes Eliquis; continue HTN: Chronic Takes Enalapril; continue HLD: Chronic Takes simvastatin;continue Disposition: PCP: Dr. Still Code Status: Full Code VTE Prophylaxis: On Eliquis I spent a total of 87 minutes coordinating, documenting, and providing care for this patient excluding time spent in the performance of separately billed services. All of the aforementioned completed while collaborating with the assigned attending physician for a full treatment plan. Please see their addendum for further details. History of Present Illness Chief Complaint: AMS Primary Care Provider: Raul Still MD Mr. Barrera is a 58 year old male that presents to the ED today with altered mental status. He has a complex history that most recently includes an inpatient hospitalization here at [facility] with a transfer to [facility] on 12/20 for further evaluation of right knee sepsis and MRSA bacteremia. He underwent an I/D on 12/24 of his right distal femur osteomyelitis and placed on antibiotic beads on 12/25/2023. He initially was started on IV Vancomycin for MRSA bacteremia with infective endocarditis but developed DICK that later turned to be Acute Tubular Necrosis and he was switched to IV Daptomycin. He was discharged home on 01/02/24 with IV Daptomycin to be administered through his PICC with Home Health. He continues to have nonoliguric DICK with creatinine at 3.33. He was also found to have an occlusive RLE DVT when he was in [place]. He was transition to Eliquis for his DVT upon discharge. His niece who is a PA provided his medical history. He does not have any reportable fevers. No leukocytosis, hemoglobin 8.2, creatinine 3.33, normal lactate, hypomag 1.5, normal troponin and normal procalcitonin. CXR negative for pneumonia or acute cardiopulmonary disease, right knee x-ray revealed no acute dislocation or fracture however small to moderate knee effusion and diffuse soft tissue swelling noted. COVID/flu/RSV negative. Head CT negative for acute intracranial pathology. Last admission a KIERSTEN was performed with the following results: 0.5 x 0.3 echodensity MV leaflet with small vegetation noted and trace MR. 12/20 echo EF 55 to 60% with LV wall motion normal. Additional PMH includes: HTN, HLD, H/O DVT (On Eliquis), DDD lumbar region. Pt denies BLANCHARD, dizziness, chest pain, SOB, visual or auditory changes, abdominal pain or tenderness. Lengthy conversation held with infectious disease, Dr. Boggs, who indicated that he would like Vanco trough ordered and would hold all antibiotics as he suspects this is possibly supratherapeutic due to previous Vanco and uremia causing AMS. He suggested monitoring off everything to see how he responds over the next 24 hours. He did take his AM dose of Daptomycin administered by home health and was given Rocephin 2G in the ED, along with Ativan. ED did discuss this individuals case with Chase Gallegos directly and agreed for transfer to a tertiary care facility. Accepting Hospitalist is Dr. Jordan Finney. Unfortunately, transfer is limited logistically due to transportation/bed. Likely transfer 01/05/24. For now, continue to provide supportive care with continued IV abx, monitoring, Ortho consult placed in case patient is not transferred in a timely setting. Transfer paperwork has been completed. Transfer center did not have a bed as of 1740 on 01/04 and this was communicated to waterproofer. Allergies Allergy/AdvReac Type Severity Reaction Status Date / Time No Known Allergies Allergy Unverified 01/05/24 12:24 Home Medications Medication Instructions Recorded Confirmed Type enalapril maleate 10 mg tablet 10 mg PO QAM 12/17/23 01/05/24 History naproxen 500 mg tablet 500 mg PO BID PRN Pain 12/17/23 01/05/24 History simvastatin 20 mg tablet 20 mg PO HS 12/17/23 01/05/24 History Daptomycin Iv 650 m IV Q OTHER DAY 01/05/24 01/05/24 History apixaban 5 mg tablet (Eliquis) 5 mg PO BID 01/05/24 01/05/24 History baclofen 20 mg tablet 20 mg PO DAILY PRN muscle spasms 01/05/24 01/05/24 History ferrous sulfate 325 mg (65 mg 325 mg PO QAM 01/05/24 01/05/24 History iron) tablet Past Med/Surg History Medical History History of DVT (deep vein thrombosis) Hypomagnesemia Dyslipidemia Hypertension Family History (Updated 01/05/24 @ 20:32 by MIKEY Crowe) Other Coronary heart disease Social History Smoking Status: Never smoker Second Hand Exposure: No; Do You Dip or Chew Tobacco: No; Hx Alcohol Use: No Hx Substance Use: No Preferred Language: Divehi Communication Ability: Effective Care Manager Cna Required: No Beliefs That Will Affect Care: None Current Living Situation: Family Feels Safe at Home: Yes Assistive Devices: Bedside Commode and Walker Review of Systems Review of Systems: Neuro: (-) Falls, trauma, slurred speech HEENT: (-) BLANCHARD, dizziness, dysphagia, visual or auditory changes CV: (-) CP, palpitations, swelling Resp: (-) SOB GI: (-) appetite changes, N/V/D, bowel changes : (-) urinary changes Skin: (-) rashes Psych: (-) anxiety, depression Physical Exam Physical Exam: Neuro: AAOx4, PERRLA, no aphagia, memory changes, CNII-XII grossly intact HEENT: head normocephalic, moist mucus membranes CV: S1/S2, (-) M/G/R, (-) edema, cap refill < 3 seconds Resp: Lungs CTA in all minaya. On RA GI: Abdomen S/NT/ND, Ax4 bowel sounds, (-) CVA tenderness Musculoskeletal: 5/5 B/L UE strength, 5/5 B/L LE strength. No gait disturbance Skin: (-) rashes , (-) erythema. Psych: euthymic mood Results & Data Results & Data Vital Signs (Past 12 Hours) Vital Signs Temp Pulse Pulse Resp BP BP Pulse Ox 01/05/24 13:45 101 H 20 124/97 01/05/24 12:16 81 18 142/82 H 95 01/05/24 11:33 01/05/24 11:27 36.9 C 102 H 20 144/67 H 98 01/05/24 11:11 100 H 01/05/24 10:57 99 01/05/24 10:48 36.9 C 93 H 18 154/73 H 100 O2 Del Method 01/05/24 13:45 01/05/24 12:16 Room Air 01/05/24 11:33 Room Air 01/05/24 11:27 Room Air 01/05/24 11:11 01/05/24 10:57 Room Air 01/05/24 10:48 Room Air Laboratory Results Short CBC 01/05/24 Range/Units 11:22 WBC 10.08 (4.8-10.8) K/ul Hgb 8.2 L (14.0-18.0) g/dl Hct 26.8 L (42.0-52.0) % Plt Count 470 H (130-400) K/uL BMP 01/05/24 11:22 Sodium 135 L Potassium 4.2 Chloride 101 Carbon Dioxide 22 BUN 28 H Creatinine 3.33 H Glucose 106 H Calcium 8.5 L Liver Function 01/05/24 Range/Units 11:22 Total Bilirubin 0.5 (0.2-1.0) mg/dl Direct Bilirubin 0.2 (0-0.2) mg/dl AST 20 (13-39) U/L ALT 19 (7-52) U/L Alkaline Phosphatase 111 H (34-104) U/L Albumin 2.9 L (3.4-5.0) gm/dl Diagnostic Findings Chest X-Ray 01/05/24 10:57 SINGLE VIEW CHEST CLINICAL HISTORY: Sepsis. FINDINGS: An AP, portable, upright chest radiograph is compared to chest x-ray and chest CT dated 12/17/2023. A right internal jugular central venous catheter is new from previous. The tip projects at the cavoatrial junction. The heart is enlarged. The pulmonary vasculature is noncongested. There is bibasilar scarring/atelectasis. No airspace consolidation or large pleural effusion is identified. No pneumothorax is seen. The skeletal structures are osteopenic. The bony thorax is grossly intact. IMPRESSION: Cardiomegaly with no acute cardiopulmonary abnormality identified. ACT 112: Negative or not required by law. Electronically signed by: Jose Shrestha M.D. 01/05/2024 11:37 AM Code Status & VTE Plan Code Status Full Code in the event of cardiac or respiratory arrest VTE Prophylaxis Plan VTE Prophylaxis will be ordered: Yes Supervising Physician Co-Signing Physician Notes Pt seen and examined by me, care coordinated w/ E. MIKEY Concepcion, pls refer to her notes above for further detail. Mr. Barrera is a 58 yo M who presents with altered mental status. He has a complex history that most recently includes an inpatient hospitalization here at [facility] with a transfer to [facility] on 12/20 for further evaluation of MRSA bacteremia, endocarditis, found to have septic Right knee and underwent an I&D on 12/24 in [place]. He was initially started on IV Vancomycin for MRSA bacteremia with infective endocarditis but developed DICK / Acute Tubular Necrosis and he was switched to IV Daptomycin. He was discharged home on 01/02/24 with IV Daptomycin to be administered through his PICC with Home Health. He continues to have nonoliguric DICK with creatinine at 3.33. He does not have any reportable fevers. No leukocytosis, hemoglobin 8.2, creatinine 3.33, normal lactate, hypomag 1.5, normal troponin and normal procalcitonin. CXR negative for pneumonia or acute cardiopulmonary disease, right knee x-ray revealed no acute dislocation or fracture however small to moderate knee e ffusion and diffuse soft tissue swelling noted. COVID/flu/RSV negative. Head CT negative for acute intracranial pathology. Last admission a KIRESTEN was performed with the following results: 0.5 x 0.3 ech odensity MV leaflet with small vegetation noted and trace MR. 4/1 echo EF 55 to 60% with LV wall motion normal. Per ED note, pt was agitated and received ativan. It was confirmed that pt received AM dose of daptomycin by home health. In the ED he received 2g Rocephin. Currently pt is laying in bed in NAD, he is drowsy but arousable able to answers some simple questions appropriately. When I took care of the pt last time (when hospitalized here) he had significant RLE pain, he currently denies any pain and says that has resolved after his I&D in [place]. Noted stitches over R knee area w/o any drainage or bleed. His RLE is still edematous and somewhat erythematous, when he was hospitalized here we found RLE DVT and placed pt on iv heparin, currently he is on eliquis. Lungs are CTAB, heart sounds regular, abdomen soft, nontender. Pt is moving extremities. ED did discuss with Chase Gallegos directly and agreed for transfer to a tertiary care facility. Accepting Hospitalist is Dr. Jordan Finney. Unfortunately, transfer is limited logistically due to transportation/bed. Likely transfer 01/05/24. For now, continue to provide supportive care with continued IV abx, monitoring, Ortho consult placed in case patient is not transferred in a timely setting. Transfer paperwork has been completed. Transfer center did not have a bed as of 1740 on 01/04 and this was communicated to brennan. Deja JENSEN - had a detailed conversation with an infectious disease physician, Dr. Boggs, who recommended to obtain Vanco trough and would hold all antibiotics as he suspects this is possibly supratherapeutic due to previous Vanco and uremia causing AMS. He suggested monitoring off everything to see how he responds over the next 24 hours. Nephrology also consulted. Later in a day, pt's brother presented in the ER at the bedside and I was able to update him on the current status, and plan to transfer to [facility] once bed available. MD Ted
[2024-01-05] MEDS: DROPERIDOL 5 MG/2 ML VIAL IV STA (14:45)
--- NOTE | 2024-01-05 14:52 | XRay Report ---
XR knee RT 3V CLINICAL HISTORY: R knee pain and swelling COMPARISON STUDY: None. FINDINGS: Cement beads noted within the distal right femur. No fracture or dislocation within the rig ht knee. There is a small to moderate right knee effusion. There is diffuse soft tissue swelling. Mil d cartilage space narrowing within the medial compartment of the knee. There is heterogeneous appeara nce to the distal right femur which extends to the articular surfaces of the distal femur. There is a lso subtle irregularity at the patellar articular surfaces. IMPRESSION: 1. No acute fracture or dislocation within the right knee. 2. Small to moderate right knee effusion. 3. Diffuse soft tissue swelling. 4. Cement beads noted within the distal right femur with heterogeneous appearance to the distal right femur extending to the articular surfaces. This is consistent with age indeterminate osteomyelitis. The joint effusion and soft tissue swelling raises the possibility of an associated septic arthritis . ACT 112: Negative or not required by law. Electronically signed by: Jimmie Castellanos M.D. 01/05/2024 2:51 PM
--- OUTSIDE RECORDS SUMMARY | 2024-01-05 14:52 | External Medical Summary | Summary of Care ---
Author Name Unknown Organization [facility] Address [address] [place] [address] Phone [phone] Care Team Providers Care Audio Video Mechanic Name Role Phone Raul Drummond MD Primary Care Provide r Reason for Visit * Auth/Cert Specialty Diagnoses / Procedures Referred By Steve rome Referred To Contact Diagnoses sepsis Rohit Metzger MD [address] [place] [address] Admissions [facility] [place] [address] [place] [address] Referral ID Status Reason Start Date Expiration Date Visits Re quested Visits Authorized [id number] Encounter Details Date Type Department Care Team (Latest Contact Info) Description 12/21/2023 9:39 PM EDT - 01/02/2024 12:07 PM EDT Hospital Encounter [facility], [facility] 6th Floor [address] [place] [address] Rohit Metzger MD [address] [place] [address] Ed Melissa MD [address] [place] [address] Winston Tarango MD [address] [place] [address] Various: CDIQDC,EKG Discharge Disposition: Home with Services Allergies No known active allergiesdocumented as of this encounter (statuses as of 01/03/2024) Medications Medication Sig Dispensed Refills Start Date End Date Status Simvastatin 20 MG Oral Tablet (Zocor)Indication s:Dyslipidemia, goal LDL below 130 TAKE 1 TABLET BY MOUTH EVERYDAY AT BEDTIME 90 Tablet 2 4 Active Enalapril Maleate 10 MG Oral Tablet (Vasotec)Indicati ons:Primary hypertension TAKE 1 TABLET BY MOUTH EVERY DAY IN THE MORNING 90 Tablet 2 4 Active CPAP every night at bedtime. 0 Active Apixaban 5 MG Oral Tablet (Eliquis) Take 1 Tablet by mouth two times per day (morning & before bedtime). 60 Tablet 1 4 03/01/20 24 Active DAPTOmycin IV IV (AMBULATORY) Administer 650 mg intravenously every other day for 17 doses. Do not start before January 03, 2024. 11.05 g 0 4 02/05/20 24 Active Ferrous Sulfate 325 (65 Fe) MG Oral Tablet (Feosol) Take 1 Tablet by mouth daily with breakfast. 60 Tablet 11 4 Active Baclofen 20 MG Oral TabletIndications :Acute bilateral low back pain without sciatica,Pain of right lower leg Take 1 Tablet by mouth daily as needed for Muscle spasms. 30 Tablet 1 4 Active Atenolol 25 MG Oral Tablet (Tenormin)Indicat ions:Primary hypertension TAKE 1 TABLET BY MOUTH EVERY DAY IN THE MORNING 90 Tablet 1 3 01/02/20 24 Discontinued Enalapril Maleate 20 MG Oral Tablet (Vasotec)Indicati ons:Primary hypertension TAKE 1 TABLET BY MOUTH EVERY DAY WITH THE 10MG TABS FOR TOTAL DAILY DOSE OF 30MG 90 Tablet 1 3 01/02/20 24 Discontinued Baclofen 20 MG Oral TabletIndications :Acute bilateral low back pain without sciatica,Pain of right lower leg Take 1 Tablet by mouth in the morning and 1 Tablet at noon and 1 Tablet before bedtime. 30 Tablet 1 4 01/02/20 24 Discontinued Naproxen 500 MG Oral Tablet (Naprosyn)Indicat ions:Sprain of ligament of lumbosacral joint, sequela,DDD (degenerative disc disease), lumbosacral Take 1 Tablet by mouth 2 times a day as needed for Pain. 180 Tablet 1 4 01/02/20 24 Discontinued Chlorthalidone 25 MG Oral Tablet (Hygroton)Indicat ions:Primary hypertension TAKE 1 TABLET BY MOUTH EVERY DAY IN THE MORNING 90 Tablet 2 4 01/02/20 24 Discontinued documented as of this encounter (statuses as of 01/03/2024) Active Problems Problem Noted Date Diagnosed Date Acute hematogenous osteomyelitis of right femur 12/28/2023 Lytic bone lesion of femur 12/22/2023 Acute deep vein thrombosis (DVT) of right lower extremity 12/22/2023 Pelvic abscess in male 12/22/2023 Endocarditis of mitral valve 12/22/2023 Family history of lung cancer 12/22/2023 DICK (acute kidney injury) 12/21/2023 Cavitary lesion of lung 12/21/2023 MRSA bacteremia 12/21/2023 Sepsis 12/21/2023 Anemia 12/21/2023 Lymphoma 12/16/2023 BMI 35.0-35.9,adult 07/13/2023 Obstructive sleep apnea 12/09/2018 Overview: Dr Bell Dyslipidemia, goal LDL below 130 12/31/2010 Primary hypertension 08/08/2009 Overview: Modified per HTN protocol #16. LUMBAGO 03/16/2006 ADVANCE DIRECTIVE INFORMATION 02/26/2006 Overview: No, Advance Directive brochure given to patient at prior appointment. DDD (degenerative disc disease), lumbosacral documented as of this encounter (statuses as of 01/03/2024) Resolved Problems Problem Noted Date Diagnosed Date Resolved Date Acute bilateral low back kaity n without sciatica 08/05/2016 08/06/2017 BMI 34.0-34.9,adult 04/21/2013 08/23/20 19 Dyslipidemia, goal to be determined 12/16/2004 12/31/2010 HYPERTENSION NOS 08/08/2009 Overview: Modified per HTN protocol #16. Allergic rhinitis 08/06/2017 documented as of this encounter (statuses as of 01/03/2024) Immunizations Name Administration Dates Next Due COVID-19 [...] the money to buy more. Never true 10/29/19 24 Within the past 12 months, t he food you bought just didn't last and you didn't have money to get more. Never true 10/29/2023 Sex and Gender Information Value Date Recorded Sex Assigned at Male 10/29/2023 7:54 PM EST Gender Identity Male 10/29/2023 7:54 PM EST Sexual Orientation Straight 10/29/2023 7: 54 PM EST Job Start Date Occupation Industry Not on file Not on file Not on file documented as of this encounter Last Filed Vital Signs Vital Sign Reading Time Taken Comments Blood Pressure 129/68 01/02/2024 5:25 AM EDT Pulse 87 01/02/2024 5:25 AM EDT Temperature 37.4 C (99.3 F) 01/02/2024 5:25 AM ED T Respiratory Rate 16 01/02/2024 5:25 AM EDT Oxygen Saturation 97% 01/02/2024 5:25 AM EDT Inhaled Oxygen Concentration - - Weight 105.7 kg (233 lb) 01/02/2024 8:00 AM EDT Height 167.6 cm (5' 6") 12/21/2023 9:48 PM EDT Body Mass Index 37.61 12/21/2023 9:48 PM EDT documented in this encounter Functional Status Functional Status Response Date of Assess ment Are you deaf or do you have serious difficulty h earing? No 12/21/2023 Are you blind or do you have serious difficulty seeing, even when wearing glasses? No 12/21/2023 Do you have serious difficul ty walking or climbing stairs? (5 years old or older) No 12/21/2023 Do you have difficulty dress ing or bathing? (5 years old or older) No 12/21/2023 Because of a physical, menta l, or emotional condition, do you have difficulty doing errands alone such as visiting a doctor s office or shopping? (15 years old or older) No 12/21/19 Cognitive Status Response Date of Assessm ent Because of a physical, menta l, or emotional condition, do you have serious difficulty concentrating, remembering, or making decisions? (5 years old or older) No 12/21/2023 documented as of this encounter Discharge Summaries * Winston Tarango MD - 01/02/2024 12:08 PM EDT [facility] [place] [address] Admission Date: 12/21/2023 Discharge Date: 01/02/2024 RECOMMENDED TO DO FOR NEXT PROVIDER(S): - Follow up with PCP - CBC with diff, CMP, CK weekly till 02/05/24 - Follow up with orthopedics -Follow up with infectious disease -Follow up with nephrology REASON(S) FOR MEDICATION CHANGE(S): -continue taking Eliquis 5 mg twice daily -continue taking daptomycin to 24 hours we will kidney function till 02/05/2024 through tunneled CVC catheter - Keep holding BP medications - Start taking Iron supplementation as ordered DISPOSITION ON DISCHARGE: Home with Services Active Hospital Problems Diagnosis *Principal Diagnosis - Sepsis (HCC) 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) Lytic bone lesion of femur Acute deep vein thrombosis (DVT) of right lower extremity (HCC) Pelvic abscess in male (HCC) Endocarditis of mitral valve Family history of lung cancer DICK (acute kidney injury) (HCC) MRSA bacteremia Cavitary lesion of lung Anemia Obstructive sleep apnea Dyslipidemia, goal LDL below 130 Resolved Hospital Problems No resolved problems to display. ADMISSION HISTORY & PHYSICAL EXAM (focused): Rogelio Barrera is a 57 year old male with a significant medical history of dyslipidemia, degenerativedisc disease, hypertension, OFELIA, who is being admitted as a direct admission from [facility]. Patient was admitted to their facility on 12/17/2023 with encephalopathy after being found down at home by family member. Patient was diagnosed with sepsis and started on broad-spectrum antibiotics later found to have MRSA bacteremia. Diagnostic testing at their facility also found a cavitary lung lesion, gas/fluid collection lead to in the prostate in rectum, a small cardiac vegetation on KIERSTEN, he was evaluated by their interventional radiologist in his surgery team for possible drainage of the fl uid gas collection however both services at their facility felt that the collection was too small to be drained and recommended to treat with only antibiotics. He was also found to have a right lowerextremity DVT and was started on a heparin infusion. Patient is being transferred to our facility for multiple specialties including is regular orthopedic surgeon Dr. Sheridan, infectious Disease, possible cardiac surgery. Patient was seen in his room shortly after presentation indicating that he was having mild pain in his right lower extremity, pain increases with attempts to move and with palpation. Other than the patient feels like he is much improved from his initial arrival at [facility]. Denying: Chest Pain, Dyspnea, Fever/Chills, N/V/D, H/A, Weakness, Numbness, Tingling, Lightheadedness, Dizziness, Blurred vision. Per chart review patient was seeing Dr. Sheridan for ongoing right leg pain with recent MRI on 12/11/2023 demonstrating signal abnormalities of the right distal femoral diaphysis extending to the 5th emesis with cortical disruption in soft tissue mass/enhancement. Plan at that time was for him to obtain a biopsy to help guide treatment HOSPITAL COURSE (focused): Patient was evaluated by Orthopedics and underwent incision drainage of right distal femur osteomyelitis and placement of antibiotic beads by Dr. Brennan on 12/25/2023. Patient was continued on vancomycin for MRSA bacteremia with infective endocarditis. Patient has subsequently developed acute kidney injury secondary to ATN. Nephrology was consulted and patient was evaluated and it was deemed thatit is likely secondary to hypotensive episodes and elevated vancomycin levels subsequently developing acute tubular necrosis. Antibiotics were switched to daptomycin given kidney function. Patient continued to have nonoliguric DICK with creatinine plateauing at 3.2. Patient was also continued on heparin infusion for right lower extremity occlusive DVT. Patient haddeveloped anemia from iron-deficiency anemia and acute blood loss anemia. Patient received 1 unit PRBC. Patient also received Venofer x3 doses for iron-deficiency. Hemoglobin day of discharge 7.2 andwas transitioned to Eliquis and is being discharged with follow up CBC to monitor hemoglobin. Patient's RAJINDER drain from thigh was removed by Orthopedics with follow up on 01/04/2024. On day of discharge Patient was seen and examined bedside Hemodynamically stable. Saturating well on room air States he feels well. Denies any fevers chills. Patient denies any pain or discomfort. States he feels well. Denies any signs symptoms of occult or overt bleeding. Discussed with patient to continue antibiotics, avoid any NSAIDs, watch for any bleeding episodes, follow up with PCP, Orthopedics and Infectious diseases and continue taking medications regularly. Patient verbalizes understanding. Patient also to take iron supplementation like his father. Physical Exam Constitutional: Appearance: He is obese. HENT: Head: Normocephalic. Cardiovascular: Rate and Rhythm: Normal rate. Heart sounds: Normal heart sounds. Musculoskeletal: Right lower leg: No edema. Left lower leg: No edema. Neurological: Mental Status: He is alert. Mental status is at baseline. Psychiatric: Behavior: Behavior normal. Operations & Procedures: Tunneled CVC catheter placement, s/p D&I of the Right Distal FemurOsteomylitis and placement of antibiotic beads by Dr. Sheridan on OR date: 12/25/2023. Complications: none significant Significant Lab and Imaging Results: As mentioned above Results Pending at Discharge: Lab Results Pending at Discharge: CK Routine CRP (INFLAMMATORY MARKER) Routine CULTURE, AFB Routine CULTURE,FUNGUS,NON-DERM Routine RENAL FUNCTION PANEL Routine CULTURE, WOUND, DEEP, AEROBIC AND ANAEROBIC Routine CBC STAT PT INR Routine MEDICATION UPDATES AT DISCHARGE START taking these medications INSTRUCTIONS DAPTOmycin IV (AMBULATORY) Commonly known as: Cubicin Start taking on: January 03, 2024 Administer 650 mg intravenously every other day for 17 doses. Do not start before January 03, 2024. Eliquis 5 MG Tablet Generic drug: Apixaban Take 1 Tablet by mouth two times per day (morning & before bedtime). Ferrous Sulfate 325 (65 FE) MG Tablet Commonly known as: Feosol Take 1 Tablet by mouth daily with breakfast. CHANGE how you take these medications INSTRUCTIONS Baclofen 20 MG Tablet What changed: when to take this reasons to take this Take 1 Tablet by mouth daily as needed for Muscle spasms. enalapril 10 MG Tablet Commonly known as: Vasotec What changed: Another medication with the same name was removed. Continue taking this medication, and follow the directions you see here. TAKE 1 TABLET BY MOUTH EVERY DAY IN THE MORNING CONTINUE taking these medications INSTRUCTIONS CPAP every night at bedtime. Simvastatin 20 MG Tablet Commonly known as: Zocor TAKE 1 TABLET BY MOUTH EVERYDAY AT BEDTIME STOP taking these medications Atenolol 25 MG Tablet Commonly known as: Tenormin Chlorthalidone 25 MG Tablet Commonly known as: Hygroton Naproxen 500 MG Tablet Commonly known as: Naprosyn SCHEDULED FOLLOW-UP: Future Appointments Appt Date/Time Provider Department 01/04/2024 3:30 PM [facility]/20/[facility]24 11:20 AM Raul Drummond MD [facility] 03/15/2024 1:20 PM Madai Rousseau DO [facility] 03/17/2024 10:40 AM Raul Drummond MD [facility] Outpatient Follow Up CBC with WBC Differential CBC with WBC Differential CK CK Comprehensive Metabolic Panel Comprehensive Metabolic Panel Other Information Indwelling Devices: LINES ALL Duration Peripheral Line Lower;Right Arm 22 Gauge 3 days Tunneled Central Cath Single Lumen Right Chest 1 day Vital Signs (last recorded): Most Recent Systolic BP: 129 mmHg (01/02/24524) Most Recent Diastolic BP: 68 mmHg (01/02/24524) Pulse: 87 (01/02/24524) Resp: 16 (01/02/24524) Most Recent Temperature: 37.39 C (01/02/24524) Weight: 105.7 kg (233 lb) (01/02/24 0800) SpO2: 97 % (01/02/24524) O2 flow rate: 0 L/MIN (01/01/24 2230) Allergies: Patient has no known allergies. Activity: as tolerated Diet: age appropriate diet Code Status: Full Code Condition on Discharge: fair Isolation status: Contact Cognition: normal HOSPITAL CONSULTS ORDERED: ADULT OCCUPATIONAL THERAPY CONSULT IP ADULT PHYSICAL THERAPY CONSULT IP ORTHOPAEDICS CONSULT IP INFECTIOUS DISEASE CONSULT IP THORACIC MEDICINE / PULMONOLOGY CONSULT IP UROLOGY CONSULT IP COLORECTAL SURGERY CONSULT IP IV THERAPY CONSULT IP ADULT PHYSICAL THERAPY CONSULT IP ADULT OCCUPATIONAL THERAPY CONSULT IP NEPHROLOGY CONSULT IP WOUND/OSTOMY CONSULT IP REFERRING PHYSICIAN: Ref: JAMARCUS CORTES[[id number]] [address] [facility] [place] [address] (office) [phone] (fax) PRIMARY CARE PROVIDER: PCP: Raul Drummond MD [address] [place] [address] / Constance GALLAGHER [address] (office) [phone] (fax) Note: To contact a physician responsible for this patients hospital care, please call [facility] [phone]. I certify this patient is confined to the home and needs intermittent long-term care, physical therapy and/or speech therapy, or continues to need occupational therapy. The patient is under my care and I have authorized services on this plan of care. The clinical findings of decrease in functional mobility secondary to decreased strength, decreased balance, and decreased endurance due to recent hospitalization and overall medical condition support the need for home health, and the patientdemonstrates a considerable and taxing effort when attempting to leave the home. The patient had a [id number] encounter with an allowed provider type on 01/02/24 and the encounter was related to the primary reason for home health care. Under situations in whichI am an acute/post acute facility physician who will not be following the patient's plan of care, Iauthorized services on this plan of care and I transfer the patient for plan of care certification to the primary care physician named below who will follow the patient and update the plan of care. Primary care physician Raul Drummond MD I spent a total of 47 minutes coordinating, documenting, and providing care for this patient excluding time spent in the performance of separately billed services. documented in this encounter Discharge Instructions * Discharge Instr - AVS* Wniston Tarango MD - 01/01/2024 11:47 AM EDT Discharge Date: 01/02/24 The information below provides you with the instructions and the list of medications you need to betaking following discharge from the hospital. If you have any questions, please ask before leaving. If you have questions after leaving, you can reach us at the numbers below. YOUR HOSPITAL PROVIDERS: Discharging Provider: Winston Tarango MD Provider Department: Hospital Medicine To reach this Provider Thursday through Thursday (8:00 AM to 4:30 PM) for any questions or test results: Call [phone] For after-hours concerns: Call [phone] and have your provider paged, or the provider relations mgr for the Department of Hospital Medicine paged. Please note, the discharging provider will not be able to provide you with any medications refills.Please discuss these with your primary care provider. Worsening Symptoms: If you have new symptoms, or your symptoms get worse, please contact your Discharge Provider or Primary Care Provider (PCP). If these providers are not available, you can go to your local [facility] or [facility] Care Clinic during their business hours. In an EMERGENCY situation: Call [phone] or go to the nearest emergency room. A BRIEF SUMMARY OF YOUR HOSPITAL STAY: You came to the hospital with: complaint of MRSA Bacteremia Your main diagnosis at discharge was: MRSA bacteremia abscess between the prostate and rectum Osteomyelitis of right distal femur Infective endocarditis Likely lung abscess ( lytic lung lesion) Operations & Procedures performed: Tunneled CVC catheter placement, s/p D&I of the Right Distal Femur Osteomylitis and placement of antibiotic beads by Dr. Sheridan on OR date: 12/25/2023. Complications: none significant Inpatient test results that are pending at discharge: none Advance Directive Documented: Advance Directive Does the Patient have an Advance Directive? No YOUR FOLLOW UP APPOINTMENTS: Primary Care Provider Information: PCP: Raul Drummond MD [address] [place] [address] / Constance [place] [address] (office) [phone] (fax) An appointment was requested with your PCP (Raul Drummond MD) within 7 days. (Please take this form to this visit with your primary care physician.) You need the following studies in the future: CBC with diff, CMP, CK weekly till 02/05/24 INSTRUCTIONS: Diet: Previous diet Activity: As tolerated CVC (Central Venous Catheter) Care: Prevent Infection. Use good hand hygiene by following the guidelines on this sheet. Don't touch thecatheter or dressing unless you need to. Always clean your hands before and after you come in contact with any part of the CVC. To wash your hands with soap and water: Wet your hands with warm water. (Avoid hot water, which can cause skin irritation when you wash your hands often) Apply enough soap to cover the entire surface of your hands, including your fingers. Rub your hands together briskly for at least 15 seconds. Make sure to rub the front and back of each hand up to the wrist, your fingers and fingernails, between the fingers, and each thumb. Rinse your hands with warm water. Dry your hands completely with a new, unused paper towel. Don't use a cloth towel or other reusabletowel. These can harbor germs. Use the paper towel to turn off the faucet, then throw it away. If you're in a bathroom, also use apaper towel to open the door instead of touching the handle. Keep the CVC dry. The catheter and dressing must stay dry. Don't go swimming, use a tub, or do other things that could get the CVC wet. When it comes to bathing, also avoid getting the catheter wet. You may use plastic wrap and tape to keep the catheter and dressing dry. You may also ask the home health nurse what products they may have to keep things dry. If the dressing does get wet, call the home nurse agency right away for help. Additional Instructions: - Call your primary care physician or seek medical attention if symptoms of fevers chills, chest pain, excessive bleeding , chest pain, perist or worsen. - Do not use alcohol products in anyway! - Do not take [id number] NSAIDs (nonsteroid anti-inflammatory medications); ie. Advil, Motrin, Ibuprofen, etc. - Complete the course of antibiotics as prescribed - Keep holding BP medications - Start taking Iron supplementation as ordered - Follow up with PCP - Follow up with orthopedics -Follow up with infectious disease -Follow up with nephrology documented in this encounter Progress Notes * Josee Baltazar MD - 01/01/2024 2:38 PM EDT PROGRESS NOTE - Nephrology [facility] [place] [address] Name: Rogelio Barrera Location: [facility] [place] [id number] Date: 01/01/2024 Time: 2:38 PM Background: Patient is a 58-year-old admitted from [facility] with encephalopathy and DICK secondary to sepsis from MRSA bacteremia, source being osteomyelitis of right distal femur along with abscesses in bladder/ colon+ lytic lung lesions. KIERSTEN showing presence of infective endocarditis. SUBJECTIVE: Patient seen and examined by bedside, feels well. Continues to make more urine.S/P IR guided tunneled CVC placed yesterday. Labs reviewed, creatinine seems to have plateaued at 3.1 mg/dL,EGFR 22 mL/minute. CURRENT HOSPITAL MEDICATIONS: Reviewed Current Facility-Administered Medications Medication Dose Route Frequency Provider [START ON 01/02/2024] Iron Sucrose (Venofer) 300 mg in NSS 250 mL ivpb 300 mg IV Piggyback Once Winston Tarango MD DAPTOmycin (Cubicin) inj 650 mg 6 mg/kg IV Push Q48 Hours Pamela Wood PA-C melatonin tab 3 mg 3 mg Oral HS PRN Linh Lerma CRNP hEParin 1000 UNIT/ML inj 1,200 Units 15 Units/kg (Adjusted) IV Push PRN Ed Melissa MD hEParin 1000 UNIT/ML inj 2,500 Units 30 Units/kg (Adjusted) IV Push PRN Ed Melissa MD hEParin 25,000 units in 250 mL (Xa-DVT/PE) infusion 0-30 Units/kg/hr (Adjusted) Intravenous TitrateEd Melissa MD Alteplase (Cathflo Activase) inj 2 mg 2 mg IV Push PRN Ed Melissa MD chlorhexidine gluconate cloth 2 % pad External Daily 1000 Ed Melissa MD hEParin 100 UNIT/ML Lock Flush inj 300 Units 3 mL IV Push PRN Ed Melissa MD Lidocaine 1 % (PF) inj 1 mL 1 mL Intradermal PRN Ed Melissa MD oxygen GAS Inhalation Oxygen Ariana Hendrix MD sodium chloride 0.9 % flush/inj 10 mL 10 mL IV Push Q8H Ed Melissa MD Acetaminophen (Tylenol) tab 650 mg 650 mg Oral Q4H PRN Eugenia Cantrell PA-C oxyCODONE (Oxy IR) tab 5 mg 5 mg Oral Q4H PRN Montrell Carmen PA-C sodium chloride 0.9 % flush/inj 3 mL 3 mL IV Push PRN Montrell Carmen PA-C OBJECTIVE: Most Recent Vital Signs: BP: 140 mmHg/63 mmHg (01/01/241422) Pulse: 70 (01/01/241422) Temp: 37.39 C (01/01/241422) Temp Summary: Temp Min: 36.7 C (98.1 F) Max: 37.5 C (99.5 F) SpO2: 100 % (01/01/241422) O2 flow rate: 0 L/MIN (01/01/241422) Supplemental O2 Delivery: Room Air, None (01/01/241422) Vital Signs last 24 Hours: Systolic BP: Most Recent Systolic BP Av.2 mmHg Min: 110 mmHg Max: 147 mmHg Temperature: Most Recent Temperature Av.2 C Min: 36.72 C Max: 37.5 C Pulse: Pulse Av.5 Min: 65 Max: 88 Respirations: Resp Av.7 Min: 12 Max: 19 SpO2: SpO2 Av.5 % Min: 97 % Max: 100 % Constitutional: no acute distress HEENT: normal: normocephalic, atraumatic; no masses, tenderness, or adenopathy CV: normal rate and rhythm, no murmur, gallops or rub Chest: normal respiratory effort, lungs clear to auscultation and percussion Abdomen: normal: soft, bowel sounds normal, no masses, tenderness or organomegaly Extremities Edema: no edema Neuro: alert, oriented to person, place, and time, no asterixis Skin: warm, dry, intact LABS: Reviewed Lab results within last 7 days (see chart for full results) Units 01/01/24 0627 12/31/23 0638 12/30/23 1341 12/30/23 0617 HGB g/dL 7.3* 7.2* 7.3* 6.4* HCT % 23.0* 23.0* 23.3* 21.4* WBC K/uL 6.52 7.83 -- 7.62 PLT K/uL 509* 575* -- 618* Lab results within last 7 days (see chart for full results) Units 01/01/24 0628 12/31/23 0638 12/30/23 0617 Sodium mmol/L 139 140 141 Potassium mmol/L 3.9 4.0 3.5 Chloride mmol/L 105 106 106 CO2 mmol/L 24 23 25 BUN mg/dL 25* 26* 24* Creatinine mg/dL 3.1* 3.2* 3.2* Intake/Output Summary (Last 24 hours) at 01/01/2024 1445 Last data filed at 01/01/2024 1335 Gross per 24 hour Intake 750.3 ml Output 2275 ml Net -1524.7 ml IMAGING: Renal Ultrasound from 12/26/2023 reviewed and images independently interpreted. No evidence of hydronephrosis IMPRESSION: Patient is a 58-year-old admitted from [facility] with encephalopathy and DICK secondary to sepsis from MRSA bacteremia, source being osteomyelitis of right distal femur along with abscesses in bladder/ colon+cavitary lung lesions. KIERSTEN showing presence of infective endocarditis. DICK etiology seems to be multifactorial, related to septic ATN/septic emboli and possible obstructive.However seems to be having good urine output. Remains on IV daptomycin. Plan - Nonoliguric DICK : Renal function seems to have plateaued at 3.1 mg/dl eGFR 22 ml/mt, continue to monitor closely. - Appears euvolemic,no acute indication for renal replacement therapy -S/P tunneled CVC, for long-term antibiotics , will remain on daptomycin q.48h until 02/05/2024. - monitor and record accurate intake and output - Avoid nephrotoxic medications like NSAIDs, IV contrast, certain antibiotics etc - keep MAP>65 to prevent further renal injury Will need follow-up in DICK clinic post discharge Will continue to monitor with you Josee Baltazar MD, FRACP Nephrology * Winston Tarango MD - 01/01/2024 7:49 AM EDT Images from the original note were not included. [facility] H678/A INTERVAL HISTORY: No acute events overnight. Patient was seen and examined bedside. Hemodynamically stable. Afebrile. T-max overnight 99.5. Saturating well on room air. Patient states he feels well. Asymptomatic Urine output 2.5 L overnight. Hemoglobin stable at 7.3. Objective Physical Exam Most Recent Vital Signs: BP: 125 mmHg/62 mmHg (01/01/24646) Pulse: 77 (01/01/24646) Temp: 37.28 C (01/01/24646) Temp Summary: Temp Min: 36.1 C (97 F) Max: 37.5 C (99.5 F) SpO2: 97 % (01/01/24646) O2 flow rate: 0 L/MIN (01/01/24646) Supplemental O2 Delivery: Room Air, None (01/01/24646) Physical Exam Constitutional: Appearance: He is obese. HENT: Head: Normocephalic. Cardiovascular: Rate and Rhythm: Normal rate. Heart sounds: Normal heart sounds. Musculoskeletal: Right lower leg: No edema. Left lower leg: No edema. Comments: RAJINDER drain in place Neurological: Mental Status: He is alert. Mental status is at baseline. Psychiatric: Behavior: Behavior normal. Urethral Catheter Coude (Active) Number of days: 6 Peripheral Line Left;Lower Arm 20 Gauge (Active) Number of days: 5 Peripheral Line Lower;Right Arm 22 Gauge (Active) Number of days: 2 Drain Duy Right;Outer Thigh (Active) Number of days: 7 Tunneled Central Cath Single Lumen Right Chest (Active) Number of days: 1 STUDIES: Encounter Orders Labs and other studies reviewed with pertinent findings noted below: Assessment and Plan IMPRESSION : Principal Problem: Sepsis (HCC) Active Problems: Dyslipidemia, goal LDL below 130 Obstructive sleep apnea DICK (acute kidney injury) (HCC) Cavitary lesion of lung MRSA bacteremia Anemia Lytic bone lesion of femur Acute deep vein thrombosis (DVT) of right lower extremity (HCC) Pelvic abscess in male (HCC) Endocarditis of mitral valve Family history of lung cancer 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 * DIFFERENTIAL AND PLAN: Sepsis MRSA bacteremia abscess between the prostate and rectum Osteomyelitis of right distal femur Infective endocarditis Likely lung abscess ( lytic lung lesion) - Discontinued vancomycin 12/28 and started Daptomycin per ID recs given worsening kidney function - Blood culture- MRSA - Blood cultures 12/20 with NGTD - Preliminary tissue cultures 12/21 with few staph aureus -pathology result to rule out cancer not resulted yet - plan for daptomycin q.48h given kidney function till 02/05/2024. Tunneled CVC catheter placed by IR yesterday. - Lung lesion also needs to be followed up nearing ending of antibiotics - With ortho underwent- percutaneous biopsy right femur on 2023 Saucerization / bone debridement of right distal femur on 12/25/2023 - CK ordered as patient on daptomycin. Within normal limits Anemia - multifactorial from blood loss, iron-deficiency anemia complicated with inflammation - Most likely of chronic disease in with acute sepsis - Has gotten multiple transfusions - Likely inflammatory anemia - No bleeding - On heparin Gtt for below, we will repeat hemoglobin in the evening. If stable we will switch to Eliquis. Discussed with pharmacy about dosing of Eliquis due to low kidney function, regardless beingDVT we will switch to Eliquis 5 mg twice daily. - Monitor H/H - transfuse for Hb < 7 - received 1 transfusion on 12/30/2023. Hemoglobin 7.3 this morning - iron saturation 11%. We will repeat a dose of Venofer - Type and screen 12/28 DICK - stable - likely ATN. Kidney function same - Reviewed urine electrolytes/US renal /protien creatinine ratio - Nephrology consulted and appreciate recommendation - 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 - Urine output is good RLE Occlusive DVT - Continue heparin infusion. we will repeat hemoglobin in the evening. If stable we will switch to Eliquis. Discussed with pharmacy about dosing of Eliquis due to low kidney function, regardless being DVT we will switch to Eliquis 5 mg twice daily. PHARMACOLOGIC VTE PROPHYLAXIS: hEParin CODE STATUS: Full Code EXPECTED DISCHARGE DATE: No information available I spent a total of 53 minutes coordinating, documenting, and providing care for this patient excluding time spent in the performance of separately billed services. * Josee Baltazar MD - 12/31/2023 6:58 PM EDT PROGRESS NOTE - [place]ph[place] [facility] [place] [address] Name: Rogelio Barrera Location: [facility] [place] H678/A Date: 12/31/2023 Time: 6:58 PM Background: Patient is a 58-year-old admitted from [facility] with encephalopathy and DICK secondary to sepsis from MRSA bacteremia, source being osteomyelitis of right distal femur along with abscesses in bladder/ colon+cavitary lung lesions. KIERSTEN showing presence of infective endocarditis. SUBJECTIVE: Patient seen and examined by bedside, feels well. Continues to make more urine. Labs reviewed, creatinine seems to have plateaued at 3.2 mg/dL, EGFR 22 mL/minute. CURRENT HOSPITAL MEDICATIONS: Reviewed Current Facility-Administered Medications Medication Dose Route Frequency Provider DAPTOmycin (Cubicin) inj 650 mg 6 mg/kg IV Push Q48 Hours Pamela Wood PA-C melatonin tab 3 mg 3 mg Oral HS PRN Linh Lerma CRNP hEParin 1000 UNIT/ML inj 1,200 Units 15 Units/kg (Adjusted) IV Push PRN Ed Melissa MD hEParin 1000 UNIT/ML inj 2,500 Units 30 Units/kg (Adjusted) IV Push PRN Ed Melissa MD hEParin 25,000 units in 250 mL (Xa-DVT/PE) infusion 0-30 Units/kg/hr (Adjusted) Intravenous TitrateEd Melissa MD Alteplase (Cathflo Activase) inj 2 mg 2 mg IV Push PRN Ed Melissa MD chlorhexidine gluconate cloth 2 % pad External Daily 1000 Ed Melissa MD hEParin 100 UNIT/ML Lock Flush inj 300 Units 3 mL IV Push PRN Ed Melissa MD Lidocaine 1 % (PF) inj 1 mL 1 mL Intradermal PRN Ed Melissa MD oxygen GAS Inhalation Oxygen Ariana Hendrix MD sodium chloride 0.9 % flush/inj 10 mL 10 mL IV Push Q8H Ed Melissa MD Acetaminophen (Tylenol) tab 650 mg 650 mg Oral Q4H PRN Eugenia Cantrell PA-C oxyCODONE (Oxy IR) tab 5 mg 5 mg Oral Q4H PRN Montrell Carmen PA-C sodium chloride 0.9 % flush/inj 3 mL 3 mL IV Push PRN Montrell Carmen PA-C OBJECTIVE: Most Recent Vital Signs: BP: 110 mmHg/47 mmHg (12/31/231810) Pulse: 88 (12/31/231810) Temp: 37.5 C (12/31/231810) Temp Summary: Temp Min: 36.1 C (97 F) Max: 37.7 C (99.9 F) SpO2: 99 % (12/31/231810) O2 flow rate: 0 L/MIN (12/31/231810) Supplemental O2 Delivery: Room Air, None (12/31/231810) Vital Signs last 24 Hours: Systolic BP: Most Recent Systolic BP Av.2 mmHg Min: 110 mmHg Max: 147 mmHg Temperature: Most Recent Temperature Av.1 C Min: 36.11 C Max: 37.72 C Pulse: Pulse Av.3 Min: 64 Max: 88 Respirations: Resp Av.5 Min: 12 Max: 19 SpO2: SpO2 Av.5 % Min: 97 % Max: 100 % Constitutional: no acute distress HEENT: normal: normocephalic, atraumatic; no masses, tenderness, or adenopathy CV: normal rate and rhythm, no murmur, gallops or rub Chest: normal respiratory effort, lungs clear to auscultation and percussion Abdomen: normal: soft, bowel sounds normal, no masses, tenderness or organomegaly Extremities Edema: no edema Neuro: alert, oriented to person, place, and time, no asterixis Skin: warm, dry, intact LABS: Reviewed Lab results within last 7 days (see chart for full results) Units 12/31/23 0638 12/30/23 1341 12/30/23 0617 12/29/23 0720 HGB g/dL 7.2* 7.3* 6.4* 7.0* HCT % 23.0* 23.3* 21.4* 22.3* WBC K/uL 7.83 -- 7.62 9.30 PLT K/uL 575* -- 618* 668* Lab results within last 7 days (see chart for full results) Units 12/31/23 0638 12/30/23 0617 12/29/23 0720 Sodium mmol/L 140 141 138 Potassium mmol/L 4.0 3.5 3.4* Chloride mmol/L 106 106 100 CO2 mmol/L 23 25 25 BUN mg/dL 26* 24* 25* Creatinine mg/dL 3.2* 3.2* 3.2* Intake/Output Summary (Last 24 hours) at 12/31/2023 1925 Last data filed at 12/31/2023 1855 Gross per 24 hour Intake 330.76 ml Output 1485 ml Net -1154.24 ml IMAGING: Renal Ultrasound from 12/26/2023 reviewed and images independently interpreted. No evidence of hydronephrosis IMPRESSION: Patient is a 58-year-old admitted from [facility] with encephalopathy and DICK secondary to sepsis from MRSA bacteremia, source being osteomyelitis of right distal femur along with abscesses in bladder/ colon+cavitary lung lesions. KIERSTEN showing presence of infective endocarditis. DICK etiology seems to be multifactorial, related to septic ATN/septic emboli and possible obstructive.However seems to be having good urine output. Remains on IV daptomycin. Plan - Nonoliguric DICK : Renal function seems to have plateaued at 3.2 mg/dl, continue to monitor closely. - Appears euvolemic,no acute indication for renal replacement therapy -recommend getting a tunneled CVC, for long-term antibiotics prior to discharge. - please obtain daily renal function panel - monitor and record accurate intake and output - Avoid nephrotoxic medications like NSAIDs, IV contrast, certain antibiotics etc - keep MAP>65 to prevent further renal injury Will need follow-up in DICK clinic post discharge Will continue to monitor with you Josee Baltazar MD, FRACP Nephrology * Winston Tarango MD - 12/31/2023 7:23 AM EDT Images from the original note were not included. [facility] H678/A INTERVAL HISTORY: No acute events overnight Patient was seen and examined bedside Hemodynamically stable. Currently afebrile Overnight febrile with T-max 100.6 Saturating well on room air Patient states he feels better and well Denies any fevers chills, nausea States he has been peeing well Continues to complain of bloating from BiPAP Urine output 1.9 L Kidney function remains the same Hemoglobin 7.2 this morning Objective Physical Exam Most Recent Vital Signs: BP: 117 mmHg/68 mmHg (12/31/23623) Pulse: 67 (12/31/23623) Temp: 37.28 C (12/31/23623) Temp Summary: Temp Min: 36.8 C (98.2 F) Max: 38.1 C (100.6 F) SpO2: 98 % (12/31/23623) O2 flow rate: 0 L/MIN (12/30/23 1843) Supplemental O2 Delivery: Room Air, None (12/31/23623) Physical Exam Constitutional: Appearance: He is obese. HENT: Head: Normocephalic. Cardiovascular: Rate and Rhythm: Normal rate. Heart sounds: Normal heart sounds. Musculoskeletal: Right lower leg: No edema. Left lower leg: No edema. Comments: RAJINDER drain in place Neurological: Mental Status: He is alert. Mental status is at baseline. Psychiatric: Behavior: Behavior normal. Urethral Catheter Coude (Active) Number of days: 5 Peripheral Line Left;Lower Arm 20 Gauge (Active) Number of days: 4 Peripheral Line Lower;Right Arm 22 Gauge (Active) Number of days: 1 Drain Duy Right;Outer Thigh (Active) Number of days: 6 STUDIES: Encounter Orders Labs and other studies reviewed with pertinent findings noted below: Assessment and Plan IMPRESSION : Principal Problem: Sepsis (HCC) Active Problems: Dyslipidemia, goal LDL below 130 Obstructive sleep apnea DICK (acute kidney injury) (HCC) Cavitary lesion of lung MRSA bacteremia Anemia Lytic bone lesion of femur Acute deep vein thrombosis (DVT) of right lower extremity (HCC) Pelvic abscess in male (HCC) Endocarditis of mitral valve Family history of lung cancer 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 * DIFFERENTIAL AND PLAN: Sepsis MRSA bacteremia abscess between the prostate and rectum Osteomyelitis of right distal femur Infective endocarditis Likely lung abscess ( lytic lung lesion) - Discontinued vancomycin 12/28 and start Daptomycin per ID recs given worsening kidney function - Blood culture- MRSA - Blood cultures 12/20 with NGTD - Preliminary tissue cultures 12/21 with few staph aureus -pathology result to rule out cancer not resulted yet - Status post biopsy of distal femur and bone debridement for osteomyelitis, pending - General Surgery advises that non drainable abscess between prostate and rectum which need to be followed nearing end of antibiotics - Lung lesion also needs to be followed up nearing ending of antibiotics - Urology consult appreciated - With ortho underwent- percutaneous biopsy right femur on 2023 Saucerization / bone debridement of right distal femur on 12/25/2023 - IV consult for PICC line placed. Given kidney function IR consulted for tunneled CVC placement - IR guided tunneled CBC catheter placement today - CK ordered as patient on daptomycin. Within normal limits Anemia - multifactorial from blood loss, iron-deficiency anemia complicated with inflammation - Most likely of chronic disease in with acute sepsis - Has gotten multiple transfusions - Likely inflammatory anemia - No bleeding - On heparin Gtt for below - Monitor H/H - transfuse for Hb < 7 - received 1 transfusion on 12/30/2023. Hemoglobin 7.2 this morning - iron saturation 11%. We will give a dose of Venofer - Protein and urine electrophoresis today to screen for myeloma - Type and screen 12/28 DICK - Worsening creatinine likely ATN. Kidney function on the same - Reviewed urine electrolytes/US renal /protien creatinine ratio - Nephrology consulted and appreciate recommendation - 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 - Urine output is significant RLE Occlusive DVT - Continue heparin infusion - Will start on oral anticoagulation when no further procedure anticipated and hemoglobin is stable PHARMACOLOGIC VTE PROPHYLAXIS: hEParin CODE STATUS: Full Code EXPECTED DISCHARGE DATE: No information available I spent a total of 54 minutes coordinating, documenting, and providing care for this patient excluding time spent in the performance of separately billed services. * Josee Baltazar MD - 12/30/2023 6:59 PM EDT PROGRESS NOTE - Nephrology [address] [address] Name: Rogelio Barrera [place] [facility] [place] H678/A Date: 12/30/2023 Time: 6:59 PM Background: Patient is a 58-year-old admitted from [facility] with encephalopathy and DICK secondary to sepsis from MRSA bacteremia, source being osteomyelitis of right distal femur along with abscesses in bladder/ colon+cavitary lung lesions. KIERSTEN showing presence of infective endocarditis. SUBJECTIVE: Patient seen and examined by bedside, feels well. Continues to make more urine. Labs reviewed, creatinine seems to have plateaued at 3.2 mg/dL, EGFR 22 mL/minute. CURRENT HOSPITAL MEDICATIONS: Reviewed Current Facility-Administered Medications Medication Dose Route Frequency Provider Acetaminophen (Tylenol) tab 650 mg 650 mg Oral Q4H PRN Winston Tarango MD DAPTOmycin (Cubicin) inj 650 mg 6 mg/kg IV Push Q48 Hours Pamela Wood PA-C melatonin tab 3 mg 3 mg Oral HS PRN Linh Lerma CRNP hEParin 1000 UNIT/ML inj 1,200 Units 15 Units/kg (Adjusted) IV Push PRN Ed Melissa MD hEParin 1000 UNIT/ML inj 2,500 Units 30 Units/kg (Adjusted) IV Push PRN Ed Melissa MD hEParin 25,000 units in 250 mL (Xa-DVT/PE) infusion 0-30 Units/kg/hr (Adjusted) Intravenous TitrateEd Melissa MD Alteplase (Cathflo Activase) inj 2 mg 2 mg IV Push PRN Ed Melissa MD chlorhexidine gluconate cloth 2 % pad External Daily 1000 Ed Melissa MD hEParin 100 UNIT/ML Lock Flush inj 300 Units 3 mL IV Push PRN Ed Melissa MD Lidocaine 1 % (PF) inj 1 mL 1 mL Intradermal PRN Ed Melissa MD oxygen GAS Inhalation Oxygen Ariana Hendrix MD sodium chloride 0.9 % flush/inj 10 mL 10 mL IV Push Q8H Ed Melissa MD Acetaminophen (Tylenol) tab 650 mg 650 mg Oral Q4H PRN Eugenia Cantrell PA-C oxyCODONE (Oxy IR) tab 5 mg 5 mg Oral Q4H PRN Montrell Carmen PA-C sodium chloride 0.9 % flush/inj 3 mL 3 mL IV Push PRN Montrell Carmen PA-C OBJECTIVE: Most Recent Vital Signs: BP: 139 mmHg/66 mmHg (12/30/231842) Pulse: 79 (12/30/231842) Temp: 38.11 C (12/30/231842) Temp Summary: Temp Min: 36.8 C (98.2 F) Max: 38.1 C (100.6 F) SpO2: 99 % (12/30/231842) O2 flow rate: 0 L/MIN (12/30/231842) Supplemental O2 Delivery: Room Air, None (12/30/231842) Vital Signs last 24 Hours: Systolic BP: Most Recent Systolic BP Av.5 mmHg Min: 105 mmHg Max: 141 mmHg Temperature: Most Recent Temperature Av.3 C Min: 36.78 C Max: 38.11 C Pulse: Pulse Av.6 Min: 69 Max: 86 Respirations: Resp Av.1 Min: 16 Max: 18 SpO2: SpO2 Av.7 % Min: 96 % Max: 100 % Constitutional: no acute distress HEENT: normal: normocephalic, atraumatic; no masses, tenderness, or adenopathy CV: normal rate and rhythm, no murmur, gallops or rub Chest: normal respiratory effort, lungs clear to auscultation and percussion Abdomen: normal: soft, bowel sounds normal, no masses, tenderness or organomegaly Extremities Edema: no edema Neuro: alert, oriented to person, place, and time, no asterixis Skin: warm, dry, intact LABS: Reviewed Lab results within last 7 days (see chart for full results) Units 12/30/23 1341 12/30/23 0617 12/29/23 0720 12/28/23 0708 HGB g/dL 7.3* 6.4* 7.0* 7.8* HCT % 23.3* 21.4* 22.3* 24.5* WBC K/uL -- 7.62 9.30 12.01* PLT K/uL -- 618* 668* 762* Lab results within last 7 days (see chart for full results) Units 12/30/23 0617 12/29/23 0720 12/28/23 0708 Sodium mmol/L 141 138 135 Potassium mmol/L 3.5 3.4* 3.6 Chloride mmol/L 106 100 99 CO2 mmol/L 25 25 26 BUN mg/dL 24* 25* 24* Creatinine mg/dL 3.2* 3.2* 3.1* Intake/Output Summary (Last 24 hours) at 12/30/2023 1900 Last data filed at 12/30/2023 1832 Gross per 24 hour Intake 4525.77 ml Output 2860 ml Net 1665.77 ml IMAGING: Renal Ultrasound from 12/26/2023 reviewed and images independently interpreted. No evidence of hydronephrosis IMPRESSION: Patient is a 58-year-old admitted from [facility] with encephalopathy and DICK secondary to sepsis from MRSA bacteremia, source being osteomyelitis of right distal femur along with abscesses in bladder/ colon+cavitary lung lesions. KIERSTEN showing presence of infective endocarditis. DICK etiology seems to be multifactorial, related to septic ATN/septic emboli and possible obstructive.However seems to be having good urine output. Remains on IV daptomycin. Plan - Nonoliguric DICK : Renal function seems to have plateaued at 3.2 mg/dl, continue to monitor closely. - Appears euvolemic,no acute indication for renal replacement therapy -Check CK due to risk of rhabdo from Daptomycin - please obtain daily renal function panel - monitor and record accurate intake and output - Avoid nephrotoxic medications like NSAIDs, IV contrast, certain antibiotics etc - keep MAP>65 to prevent further renal injury Will continue to monitor with you Josee Baltazar MD, FRACP Nephrology * Winston Tarango MD - 12/30/2023 7:32 AM EDT Images from the original note were not included. [facility] H678/A INTERVAL HISTORY: Patient was seen and examined bedside Hemodynamically stable. Febrile with T-max of 100.5 Saturating well on room air Hemoglobin 6.4 this morning, no episodes or events of overt or occult bleeding Urine output 2.2 L Patient states he feels fine RAJINDER drain in place Continues to mentioned issues with his BiPAP and feels bloated Objective Physical Exam Most Recent Vital Signs: BP: 133 mmHg/61 mmHg (12/30/23530) Pulse: 69 (12/30/23530) Temp: 37.11 C (12/30/23530) Temp Summary: Temp Min: 36.8 C (98.2 F) Max: 38.1 C (100.6 F) SpO2: 99 % (12/30/23530) O2 flow rate: 0 L/MIN (12/29/232215) Supplemental O2 Delivery: Room Air, None (12/30/23530) Physical Exam Constitutional: Appearance: He is obese. HENT: Head: Normocephalic. Cardiovascular: Rate and Rhythm: Normal rate. Heart sounds: Normal heart sounds. Musculoskeletal: Right lower leg: No edema. Left lower leg: No edema. Comments: RAJINDER drain in place Neurological: Mental Status: He is alert. Mental status is at baseline. Psychiatric: Behavior: Behavior normal. Urethral Catheter Coude (Active) Number of days: 4 Peripheral Line Lower;Posterior;Right Arm 20 Gauge (Active) Number of days: 5 Peripheral Line Left;Lower Arm 20 Gauge (Active) Number of days: 3 Drain Duy Right;Outer Thigh (Active) Number of days: 5 STUDIES: Encounter Orders Labs and other studies reviewed with pertinent findings noted below: Assessment and Plan IMPRESSION : Principal Problem: Sepsis (HCC) Active Problems: Dyslipidemia, goal LDL below 130 Obstructive sleep apnea DICK (acute kidney injury) (HCC) Cavitary lesion of lung MRSA bacteremia Anemia Lytic bone lesion of femur Acute deep vein thrombosis (DVT) of right lower extremity (HCC) Pelvic abscess in male (HCC) Endocarditis of mitral valve Family history of lung cancer 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 * DIFFERENTIAL AND PLAN: Sepsis MRSA bacteremia abscess between the prostate and rectum Osteomyelitis of right distal femur Infective endocarditis Likely lung abscess ( lytic lung lesion) - Discontinued vancomycin 12/28 and start Daptomycin per ID recs given worsening kidney function - Blood culture- MRSA - Blood cultures 12/20 with NGTD - Preliminary tissue cultures 12/21 with few staph aureus -pathology result to rule out cancer not resulted yet - Status post biopsy of distal femur and bone debridement for osteomyelitis, pending - General Surgery advises that non drainable abscess between prostate and rectum which need to be followed nearing end of antibiotics - Lung lesion also needs to be followed up nearing ending of antibiotics - Urology consult appreciated - With ortho underwent- percutaneous biopsy right femur on 2023 Saucerization / bone debridement of right distal femur on 12/25/2023 - IV consult for PICC line placed. Given kidney function IR consulted for tunneled CBC placement Anemia - multifactorial from blood loss, - Most likely of chronic disease in with acute sepsis - Has gotten multiple transfusions - Likely inflammatory anemia - No bleeding - On heparin Gtt for below - Monitor H/H - transfuse for Hb < 7 - hemoglobin 6.4 today, 1 unit PRBC transfused. Repeat hemoglobin 7.3 - Protein and urine electrophoresis today to screen for myeloma - Type and screen 12/28 - we will send iron studies, folic acid ferritin DICK - Worsening creatinine likely ATN. Kidney function on the same - Reviewed urine electrolytes/US renal /protien creatinine ratio - Nephrology consulted and appreciate recommendation - 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 - Urine output is significant and looks like in polyuric phase - IV fluid discontinued RLE Occlusive DVT - Continue heparin infusion - Will start on oral anticoagulation when no further procedure anticipated PHARMACOLOGIC VTE PROPHYLAXIS: hEParin CODE STATUS: Full Code EXPECTED DISCHARGE DATE: No information available I spent a total of 56 minutes coordinating, documenting, and providing care for this patient excluding time spent in the performance of separately billed services. * Lissa Carranza CRNP - 12/29/2023 9:25 AM EDT PROGRESS NOTE - [place] [facility] [place] [address] Name: Rogelio Barrera Location: [facility]/A Date: 12/29/2023 Time: 9:25 AM Brief: Followup 58 year old male History copied from previous note -Obese BMI 31, OFELIA on CPAP HTN on JESSE Hx of Rt knee pain , imaging showed lytic bone lesion OM vs malignancy Was planned for Bone Bx - Admitted to [facility] with encephalopathy, found to have sepsis with high grade fever Started on broad spectrum antibiotics, evaluation showed MRSA bacteremia Imaging showed distal femoral osteomyelitis with probable septic arthritis + Abscess bladder/colon + cavitary lung lesions KIERSTEN also showed IE - Shifted [place] [facility] [place] care s/p Bone Bx that showed MRSA S/p Saucerization / bone debridement as treatment for suspected infection of right distal femur. today Interval history past 24 hrs: Seen at bedside, endorses feeling well today. Remains nonoliguric total documented UOP 5600 ml yesterday and 1290 ml so far today. VSS and afebrile. No acute events overnight Denies: Chills/fevers, SOB, chest pain, N/V, diarrhea, LE edema, or metallic taste OBJECTIVE: Most Recent Vital Signs: BP: 120 mmHg/68 mmHg (12/29/23729) Pulse: 78 (12/29/23729) Temp: 37.11 C (12/29/23729) Temp Summary: Temp Min: 36.6 C (97.9 F) Max: 38 C (100.4 F) SpO2: 95 % (12/29/23729) O2 flow rate: 2 L/MIN (12/28/232214) Supplemental O2 Delivery: Room Air, None (12/29/23729) Vital Signs last 24 Hours: Systolic BP: Most Recent Systolic BP Av.4 mmHg Min: 120 mmHg Max: 158 mmHg Temperature: Most Recent Temperature Av.4 C Min: 36.61 C Max: 38 C Pulse: Pulse Av.6 Min: 74 Max: 84 Respirations: Resp Av.9 Min: 17 Max: 18 SpO2: SpO2 Av.1 % Min: 95 % Max: 100 % Intake/Output Summary (Last 24 hours) at 12/29/2023 0989 Last data filed at 12/29/2023 0720 Gross per 24 hour Intake 2982.3 ml Output 4090 ml Net -1107.7 ml Weight: 99 kg (218 lb 3.2 oz) Physical Examination: Gen: in no acute distress Skin: warm, dry, intact HEENT: mucous membranes moist Resp: no wheezing or rhonchi b/l CV: regular rate and rhythm, without murmurs Abdomen: soft, nontender, nondistended Genitourinary: duffy catheter Extremities: no LE edema Neuro: A&O, conversing appropriately Psych: appropriate IMAGING: Reviewed pertinent LABS: Reviewed pertinent. Lab results within last 7 days (see chart for full results) Units 12/29/23 0720 12/28/23 0708 12/27/23 0632 Sodium mmol/L 138 135 139 Potassium mmol/L 3.4* 3.6 3.8 Chloride mmol/L 100 99 101 CO2 mmol/L 25 26 26 BUN mg/dL 25* 24* 24* Creatinine mg/dL 3.2* 3.1* 3.1* Lab results within last 7 days (see chart for full results) Units 12/29/23 0720 12/28/23 0708 12/27/23 0632 12/26/232015 HGB g/dL 7.0* 7.8* 7.1* 7.4* Assessment: # DICK in setting of disseminated MRSA bacteremia - Etiology is multifactorial; obstructive Uropathy with high risk for septic ATN/infectious GN/Septic Emoboli - Polyuric following duffy insertion, clearance lagging Acid/Base; HCO3 25 Electrolyte; normal sodium, HypoK-- PO replacement Uremia; BUN 25 Volume; Mostly Eu-Hyper BP; Stable ID; Monotherapy Vanco Anemia: Hgb 7.0, continue to monitor-- may need transfusion if <7.0 Plan: - renal function stable, creatinine 3.2 - total UOP yesterday 5600 ml - appears euvolemic - no acute indication for renal replacement therapy - please obtain daily renal function panel - monitor and record accurate intake and output - Avoid nephrotoxic medications like NSAIDs, IV contrast, certain antibiotics etc - keep MAP>65 to prevent further renal injury - rest of mgmt per primary team Pt assessment and plan discussed with attending Dr. Pressley. ? MIKEY Marks 12/29/23 [email or web address] Associated attestation - Jose R Pressley MD - 12/29/2023 7:19 PM EDT I have reviewed the advanced practitioner's documentation on the date of service referenced in note, and I agree with, and take responsibility for the plan of care. Continues to be nonoliguric making a lot of urine feels better. Suspect recovery phase of ATN continue to monitor. Discussed with Dr. Melissa. Jose R Pressley MD * Sandra Bhagat MD - 12/28/2023 5:18 PM EDT Images from the original note were not included. PROGRESS NOTE - Nephrology [facility] [place] [address] Name: Rogelio Barrera Location: [facility] [place] H678/A Date: 12/28/2023 Time: 5:18 PM BACKGROUND 58 year old Male - Obese BMI 31, OFELIA on CPAP HTN on JESSE Hx of Rt knee pain , imaging showed lytic bone lesion OM vs malignancy Was planned for Bone Bx - Admitted to [facility] with encephalopathy, found to have sepsis with high grade fever Started on broad spectrum antibiotics, evaluation showed MRSA bacteremia Imaging showed distal femoral osteomyelitis with probable septic arthritis + Abscess bladder/colon + cavitary lung lesions KIERSTEN also showed IE - Shifted to [facility] [place] for [place] of care s/p Bone Bx that showed MRSA S/p Saucerization / bone debridement as treatment for suspected infection of right distal femur. today - Being followed for DICK SUBJECTIVE: Patient is feeling better Appetite picking up No complaints OBJECTIVE: Vital Signs last 24 Hours: Systolic BP: Most Recent Systolic BP Av.7 mmHg Min: 138 mmHg Max: 158 mmHg Temperature: Most Recent Temperature Av.5 C Min: 37.11 C Max: 37.72 C Pulse: Pulse Av.4 Min: 76 Max: 86 Respirations: Resp Av.8 Min: 17 Max: 18 SpO2: SpO2 Av.4 % Min: 97 % Max: 100 % Sitting in chair, looks much better compared to initial assessment HEENT; No pallor conjunctiva or yellowish sclera, short obese neck Lung; decrease breath sounds bilaterally, no added sounds Pericardium; RRR, normal S1, S2. No murmurs Abdomen; soft, non tender, not distended MSK; No edema on left, right thigh/knee dressing Neuro; Conscious, alert, oriented, no facial asymmetry, moving his arms LABS: Latest Reference Range & Units 12/26/23 06:43 12/26/23 07:38 12/26/23 20:16 12/27/23 06:32 12/28/23 07:08 Sodium 135 - 146 mmol/L 133 (L) 139 135 Potassium 3.5 - 5.1 mmol/L 4.1 3.8 3.6 Chloride 98 - 107 mmol/L 94 (L) 101 99 CO2 22 - 32 mmol/L 25 26 26 BUN 6 - 20 mg/dL 21 (H) 24 (H) 24 (H) Creatinine 0.6 - 1.2 mg/dL 2.9 (H) 3.1 (H) 3.1 (H) Anion Gap 7 - 15 mmol/L 14 12 10 Glucose 70 - 120 mg/dL 158 (H) 126 (H) 135 (H) Calcium 8.4 - 10.2 mg/dL 7.9 (L) 8.2 (L) 8.1 (L) Phosphorus 2.5 - 4.8 mg/dL 5.4 (H) 3.2 3.7 WBC 4.00 - 10.80 K/uL 14.25 (H) 13.60 (H) 13.01 (H) 11.93 (H) 12.01 (H) HGB 14.0 - 16.8 g/dL 7.6 (L) 7.0 (L) 7.4 (L) 7.1 (L) 7.8 (L) HCT 40.0 - 48.4 % 23.7 (L) 21.9 (L) 22.8 (L) 22.2 (L) 24.5 (L) PLT 140 - 400 K/uL 664 (H) 620 (H) 722 (H) 688 (H) 762 (H) Albumin 3.8 - 5.0 g/dL 2.7 (L) 2.6 (L) 2.7 (L) IMAGING: Reviewed IMPRESSION: DICK in setting of disseminated MRSA bacteremia - Etiology is multifactorial; obstructive Uropathy with high risk for septic ATN/infectious GN/Septic Emoboli - Polyuric following duffy insertion, clearance lagging Acid/Base; HCO3 26 Electrolyte; HypoNa, HypoK Uremia; BUN 24 Volume; Mostly Eu-Hyper BP; Stable ID; Monotherapy Vanco Anemia; Hb 7.1 PLAN: - No indication for HD today - Keep on hydration, can consider increase to 100ml/hr - Treat underlying infection (covered with Vanco, source control done with surgical debridement) - DICK precautions (Strict I/O, Avoid nephrotoxic drugs, Renally adjusted dosing) Patient was seen and examined, Discussed with Dr Pressley Plan of care explained to the patient, showed comprehension and agreement Discussed with primary team Sandra Bhagat MD Nephrology Fellow Associated attestation - Jose R Pressley MD - 12/28/2023 5:27 PM EDT I saw and evaluated the patient today. I have reviewed the trainee note and agree. * Linda Ybarra, [facility] - 12/28/2023 12:14 PM EDT PHARMACY PHARMACOKINETIC CONSULT [facility] [place] [address] Name: Rogelio Barrera Location: [facility] [place] H[facility]/A Date: 12/28/2023 Time: 12:14 PM Requesting Service: Med K Bacteria being treated: MRSA Source of infection: Blood Medication(s) being managed: Vancomycin Pharmacokinetic calculations will be performed without utilizing AnipipoRx software due to meeting exclusion criteria (MENA Stage 2 or 3 DICK, or receiving renal replacement therapy [iHD, CRRT, PD]). Lab information: Lab Results Component Value Date/Time WBC 12.01 (H) 12/28/2023 07:08 AM WBC 11.93 (H) 12/27/2023 06:32 AM WBC 13.01 (H) 12/26/2023 08:16 PM WBC 13.60 (H) 12/26/2023 07:38 AM WBC 14.25 (H) 12/26/2023 06:43 AM WBC 5.3 03/22/1998 12:43 PM WBC 5.6 06/01/1996 04:00 PM Lab Results Component Value Date/Time BUN 24 (H) 12/28/2023 07:08 AM BUN 24 (H) 12/27/2023 06:32 AM BUN 21 (H) 12/26/2023 06:43 AM BUN 16 12/25/2023 06:55 AM BUN 13 12/24/2023 05:31 AM BUN 14 08/23/2019 09:47 AM BUN 23 (H) 08/03/2017 10:46 AM BUN 14 04/21/2014 10:07 AM BUN 20 01/07/2012 09:05 AM BUN 19 12/31/2010 10:15 AM BUN 16 06/01/1996 04:00 PM Lab Results Component Value Date/Time CREAT 3.1 (H) 12/28/2023 07:08 AM CREAT 3.1 (H) 12/27/2023 06:32 AM CREAT 2.9 (H) 12/26/2023 06:43 AM CREAT 2.5 (H) 12/25/2023 06:55 AM CREAT 2.0 (H) 12/24/2023 05:31 AM CREAT 1.01 11/10/2021 12:00 AM CREAT 1.00 08/28/2020 12:00 AM CREAT 1.1 08/23/2019 09:47 AM CREAT 1.07 02/27/2019 12:00 AM CREAT 1.0 08/03/2017 10:46 AM CREAT 0.9 04/21/2014 10:07 AM CREAT 0.9 01/07/2012 09:05 AM CREAT 0.9 12/31/2010 10:15 AM CREAT 0.9 06/01/1996 04:00 PM ANTIMICROBIALS GIVEN (last 28 hours) None Wt Readings from Last 1 Encounters: 12/28/23 106.5 kg (234 lb 12.6 oz) Dosing and levels to date: Lab Results Component Value Date/Time VANCORANDOM 21.3 12/28/2023 07:08 AM VANCORANDOM 29.7 12/27/2023 06:32 AM VANCORANDOM 22.5 12/25/2023 06:55 AM Day of Therapy Date Dose Admin Time Level (mcg/mL) Collected Time Notes/Comments 1 12/22/23 1250 mg 4 12/24 1000 mg q24h 6 12/26 1000 mg q24h 12/25 @ 1601 29.7 0632 Was utilizing InsightRx, now with worsening DICK 7 12/27 1000 mg x1 21.3 0708 Impression: Patient is a 58 year old male currently on Vancomycin, dosing per levels for MRSA bacteremia. Plan/Recommendations: The patient's level was drawn random The level result of 21.3 mcg/mL is above, the goal range of 15-20 mcg/mL. Administer one time dose of 1000 mg IV Vancomycin. Obtain in 1-2 days pending course of patients renal function. Pharmacy will continue to follow and dose as appropriate by renal function, culture results, infectious disease input, and overall clinical status. * Pamela Wood PA-C - 12/28/2023 8:01 AM EDT Images from the original note were not included. [facility] H678/A Admission Date: 12/21/2023 INTERVAL HISTORY: Patient reports he had a difficult night with sleep. States due to his facial hair growth during his admission he is having difficulty with getting a good seal with his CPAP at night so he was unableto sleep until 4AM. Reports family plans to bring his mask from home tomorrow. Otherwise not acute events overnight. Leg pain remains controlled with RAJINDER drain and duffy in place draining clear yellowurine. Denies shortness of breath, cough or chest pain. States his diet was advanced to regular today to help with appetite and he is looking forward to eating lunch. Denies N/V or abdominal pain. Continues with loose stools while on antibiotics, typically one per day but did have a few in a row with increased flatus yesterday. No bowel movements yet this morning. Objective Physical Exam Most Recent Vital Signs: BP: 141 mmHg/66 mmHg (12/28/23620) Pulse: 77 (12/28/23620) Temp: 37.28 C (12/28/23620) Temp Summary: Temp Min: 37.1 C (98.8 F) Max: 37.7 C (99.9 F) SpO2: 100 % (12/28/23620) O2 flow rate: 2 L/MIN (12/28/23620) Supplemental O2 Delivery: Nasal Cannula (12/28/23620) General: alert, no acute distress Eye Exam: PERRLA, extraocular movements intact, conjunctiva are pink and non- injected, sclera clear Heart: regular rate & rhythm, no murmurs and no gallops Lungs: normal respiratory effort, lungs clear to auscultation Abdomen: abdomen soft, non-tender, normal bowel sounds and no masses or organomegaly MSK/Extremities: Right leg with JESSE bandage c/d/I. RAJINDER drain with red serous discharge. Neurovascularly intact. Left leg with no edema. Neuro Exam: alert & oriented x 3 with fluent speech, no focal motor/sensory deficits, reflexes normal and symmetric Skin: skin color, texture, turgor are normal, no rashes or significant lesions Psych: Normal mood and affect Neuro: Appearance: No acute distress Mental Status: alert and oriented x 4 STUDIES: Labs and other studies reviewed with pertinent findings noted below: Latest Reference Range & Units 12/28/23 07:08 Sodium 135 - 146 mmol/L 135 Potassium 3.5 - 5.1 mmol/L 3.6 Chloride 98 - 107 mmol/L 99 CO2 22 - 32 mmol/L 26 BUN 6 - 20 mg/dL 24 (H) Creatinine 0.6 - 1.2 mg/dL 3.1 (H) Estimated Glomerular Filtration Rate >=60 mL/min 22 (L) Anion Gap 7 - 15 mmol/L 10 Glucose 70 - 120 mg/dL 135 (H) Calcium 8.4 - 10.2 mg/dL 8.1 (L) Phosphorus 2.5 - 4.8 mg/dL 3.7 INR 0.8 - 1.2 1.1 Prothrombin Time 11.6 - 15.2 seconds 13.9 Heparin, Unfractionated <0.10 IU/mL 0.45 (H) CBC Rpt ! WBC 4.00 - 10.80 K/uL 12.01 (H) RBC 4.50 - 5.25 M/uL 2.94 HGB 14.0 - 16.8 g/dL 7.8 (L) HCT 40.0 - 48.4 % 24.5 (L) MCV 82.0 - 99.5 fL 83.3 MCH 27.0 - 34.0 pg 26.5 MCHC 32.0 - 36.0 g/dL 31.8 RDW 11.5 - 15.5 % 18.3 PLT 140 - 400 K/uL 762 (H) MPV 6.6 - 11.1 fL 8.6 Albumin 3.8 - 5.0 g/dL 2.7 (L) Vancomycin Random 10.0 - 40.0 ug/mL 21.3 (H): Data is abnormally high (L): Data is abnormally low !: Data is abnormal Rpt: View report in Results Review for more information Recent Cultures (2 Weeks) 12/25/2023 12/25/2023 12/22/2023 12/22/2023 12/21/2023 12/21/2023 11:20 AM 11:19 AM 6:17 PM 12:06 AM 10:49 PM 10:46 PM FUNGUS STAIN DESCRIPTION -- -- No yeast or hyphae seen. -- -- -- FUNGUS CULTURE GROWTH -- -- No fungus isolated to date -- -- -- STAIN DESCRIPTION Occasional Polymorphonuclear leukocytes Many Polymorphonuclear leukocytes Few Polymorphonuclear leukocytes -- -- -- Few Gram positive cocci Few Gram positive cocci Many Gram positive cocci CULTURE GROWTH Two colonies Staphylococcus aureus Few Staphylococcus aureus MRSA, This patient may require isolation. Few Staphylococcus aureus MRSA, This patient may require isolation. -- -- -- BLOOD CULTURE GROWTH -- -- -- -- No growth No growth QUANT URINE CULTURE GROWTH -- -- -- No significant growth -- -- Assessment and Plan IMPRESSION : Principal Problem: Sepsis (HCC) Active Problems: Dyslipidemia, goal LDL below 130 Obstructive sleep apnea DICK (acute kidney injury) (HCC) Cavitary lesion of lung MRSA bacteremia Anemia Lytic bone lesion of femur Acute deep vein thrombosis (DVT) of right lower extremity (HCC) Prostate abscess Endocarditis of mitral valve Family history of lung cancer Resolved Problems: * No resolved hospital problems. * DIFFERENTIAL AND PLAN: Sepsis MRSA bacteremia abscess between the prostate and rectum Osteomyelitis of right distal femur Infective endocarditis Likely lung abscess ( lytic lung lesion) - Discontinue vancomycin and start Daptomycin per ID recs given worsening kidney function - Blood culture- MRSA - Blood cultures 4/1 with NGTD - Preliminary tissue cultures 12/21 with few staph aureus -pathology result to rule out cancer not resulted yet - Status post biopsy of distal femur and bone debridement for osteomyelitis - General Surgery advises that non drainable abscess between prostate and rectum which need to be followed nearing end of antibiotics - Lung lesion also needs to be followed up nearing ending of antibiotics - Urology consult appreciated - With ortho underwent- percutaneous biopsy right femur on 2023 Saucerization / bone debridement of right distal femur on 12/25/2023 Anemia - Most likely of chronic disease in with acute sepsis - Has got multiple transfusion - Likely inflammatory anemia - No bleeding - On heparin Gtt for below - Monitor H/H - transfuse for Hb < 7 DICK - Worsening creatinine likely ATN - Reviewed urine electrolytes/US renal /protien creatinine ratio - Nephrology consulted and appreciate recommendation - 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 - Urine output is significant and looks like in polyuric phase - Gentle hydration with NSS at 75 mL/hour RLE Occlusive DVT - Continue heparin infusion - Will start on oral anticoagulation when no further procedure anticipated PHARMACOLOGIC VTE PROPHYLAXIS: hEParin CODE STATUS: Full Code EXPECTED DISCHARGE DATE: No information available I spent a total of 45 minutes coordinating, documenting, and providing care for this patient excluding time spent in the performance of separately billed services. Associated attestation - Ed Melissa MD - 12/28/2023 4:34 PM EDT I have reviewed the advanced practitioner's documentation on the date of service referenced in note, and I agree with, and take responsibility for the plan of care. I spent a total of 55 minutes coordinating, documenting, and providing care for this patient excluding time spent in the performance of separately billed services or time spent by another provider/QHP. * Alisson Gray [facility] - 12/27/2023 10:31 AM EDT PHARMACY PHARMACOKINETIC CONSULT [facility] [place] [address] Name: Rogelio Barrera Location: [facility] [place] H678/A Date: 12/27/2023 Time: 10:31 AM Requesting service: Med K Bacteria being treated: MRSA Source of infection: MRSA bacteremia - mitral endocarditis/prostate abscess Medication(s) being managed: Vancomycin Pharmacokinetic calculations will be performed without utilizing youcalc software due to being niranjan aminoglycoside. Lab information: Lab Results Component Value Date/Time WBC 11.93 (H) 12/27/2023 06:32 AM WBC 13.01 (H) 12/26/2023 08:16 PM WBC 13.60 (H) 12/26/2023 07:38 AM WBC 14.25 (H) 12/26/2023 06:43 AM WBC 12.41 (H) 12/25/2023 06:55 AM WBC 5.3 03/22/1998 12:43 PM WBC 5.6 06/01/1996 04:00 PM Lab Results Component Value Date/Time BUN 24 (H) 12/27/2023 06:32 AM BUN 21 (H) 12/26/2023 06:43 AM BUN 16 12/25/2023 06:55 AM BUN 13 12/24/2023 05:31 AM BUN 12 2023 05:38 AM BUN 14 08/23/2019 09:47 AM BUN 23 (H) 08/03/2017 10:46 AM BUN 14 04/21/2014 10:07 AM BUN 20 01/07/2012 09:05 AM BUN 19 12/31/2010 10:15 AM BUN 16 06/01/1996 04:00 PM Lab Results Component Value Date/Time CREAT 3.1 (H) 12/27/2023 06:32 AM CREAT 2.9 (H) 12/26/2023 06:43 AM CREAT 2.5 (H) 12/25/2023 06:55 AM CREAT 2.0 (H) 12/24/2023 05:31 AM CREAT 1.5 (H) 2023 05:38 AM CREAT 1.01 11/10/2021 12:00 AM CREAT 1.00 08/28/2020 12:00 AM CREAT 1.1 08/23/2019 09:47 AM CREAT 1.07 02/27/2019 12:00 AM CREAT 1.0 08/03/2017 10:46 AM CREAT 0.9 04/21/2014 10:07 AM CREAT 0.9 01/07/2012 09:05 AM CREAT 0.9 12/31/2010 10:15 AM CREAT 0.9 06/01/1996 04:00 PM ANTIMICROBIALS GIVEN (last 28 hours) Date/Time Action Medication Dose Rate 12/26/23 1601 New Bag Vancomycin (Vancocin) 1000 mg in NSS 250 mL ivpb LOCKED DOSE 1,000 mg 275 mL/hr Wt Readings from Last 1 Encounters: 12/27/23 105 kg (231 lb 7.7 oz) Vancomycin dosing weight: use actual body weight. For patients who are >140% of their ideal bodyweight AND >100kg, use obesity dosing parameters. Dosing and levels to date: Lab Results Component Value Date/Time VANCORANDOM 29.7 12/27/2023 06:32 AM VANCORANDOM 22.5 12/25/2023 06:55 AM VANCORANDOM 16.1 12/24/2023 11:26 AM Day of Therapy Date Dose Admin Time Level (mcg/mL) Collected Time Notes/Comments 1 12/22/23 1250 mg 4 5 1000 mg q24h 6 12/26 1000 mg q24h 12/25 @ 1601 29.7 0632 Was utilizing InsightRx, now with worsening DICK Impression: Patient is a 58yo male initiated on vancomycin for [place] mitral endocarditis/prostate abscess with an end date of 01/31 per ID. Assessment and Plan: Previously using AUC monitoring with InsightRx. Alcides random vancomycin level due to worsening DICK. Patient's level was drawn approximately 14.5 hours after the previous dose and resulted in a level of 29.7 mcg/mL. Will skip dose tonight 12/26 and obtain a random level with AM labs on 12/27 and dose perlevel. Pharmacy will continue to follow and dose as appropriate by renal function, culture results, infectious disease input, and overall clinical status. Contact the Pharmacy at extension [phone] if there are any questions. * Ed Melissa MD - 12/27/2023 10:26 AM EDT Images from the original note were not included. [facility] H678/A INTERVAL HISTORY: Patient was seen and examined. Patient was not confused at the time of encounter. Patient was sorry that he was confused and mighthave done something wrong. He though did not have any acute complaints. I discussed with him about medical POA make decision for him when he is confused. Patient identified his sister but did not provide with phone number as patient sister is on vacation as per him.. I discussed with Nephrology team regarding his kidney function and started on IV fluid as patient seems to be in polyuric phase Objective Physical Exam Most Recent Vital Signs: BP: 143 mmHg/65 mmHg (12/27/23 0640) Pulse: 100 (12/27/2340) Temp: 37.39 C (12/27/23639) Temp Summary: Temp Min: 36.4 C (97.5 F) Max: 37.8 C (100 F) SpO2: 95 % (12/27/2340) O2 flow rate: 1 L/MIN (12/26/23 2248) Supplemental O2 Delivery: Room Air, None (12/27/23 0800) General: alert, no acute distress Eye Exam: PERRLA, extraocular movements intact, conjunctiva are pink and non- injected, sclera clear Heart: regular rate & rhythm, no murmurs and no gallops Lungs: normal respiratory effort, lungs clear to auscultation Abdomen: abdomen soft, non-tender, normal bowel sounds and no masses or organomegaly MSK/Extremities: Right leg with 2+ pitting edema from the foot to mid thigh, distal neurovascularlyintact; left leg without edema also distal neurovascularly intact. No cyanosis. Right lateral thighwith small dressing, C/D/I. Vascular: Pulses FARHAD - radial 2+, pedal 2+ Neuro Exam: alert & oriented x 3 with fluent speech, no focal motor/sensory deficits, reflexes normal and symmetric Skin: skin color, texture, turgor are normal, no rashes or significant lesions Psych: Normal mood and affect Neuro: Appearance: No acute distress Mental Status: alert and oriented x 4 STUDIES: Labs and other studies reviewed with pertinent findings noted below: Latest Reference Range & Units 12/27/23 06:32 Sodium 135 - 146 mmol/L 139 Potassium 3.5 - 5.1 mmol/L 3.8 Chloride 98 - 107 mmol/L 101 CO2 22 - 32 mmol/L 26 BUN 6 - 20 mg/dL 24 (H) Creatinine 0.6 - 1.2 mg/dL 3.1 (H) Estimated Glomerular Filtration Rate >=60 mL/min 23 (L) Anion Gap 7 - 15 mmol/L 12 Glucose 70 - 120 mg/dL 126 (H) Calcium 8.4 - 10.2 mg/dL 8.2 (L) Phosphorus 2.5 - 4.8 mg/dL 3.2 (H): Data is abnormally high (L): Data is abnormally low Latest Reference Range & Units 12/27/23 06:32 CBC Rpt ! WBC 4.00 - 10.80 K/uL 11.93 (H) RBC 4.50 - 5.25 M/uL 2.68 HGB 14.0 - 16.8 g/dL 7.1 (L) HCT 40.0 - 48.4 % 22.2 (L) MCV 82.0 - 99.5 fL 82.8 MCH 27.0 - 34.0 pg 26.5 MCHC 32.0 - 36.0 g/dL 32.0 RDW 11.5 - 15.5 % 17.5 PLT 140 - 400 K/uL 688 (H) MPV 6.6 - 11.1 fL 8.8 !: Data is abnormal (H): Data is abnormally high (L): Data is abnormally low Rpt: View report in Results Review for more information Rpt: View report in Results Review for more information Recent Cultures (2 Weeks) 12/25/2023 12/25/2023 12/22/2023 12/22/2023 12/21/2023 12/21/2023 11:20 AM 11:19 AM 6:17 PM 12:06 AM 10:49 PM 10:46 PM FUNGUS STAIN DESCRIPTION -- -- No yeast or hyphae seen. -- -- -- FUNGUS CULTURE GROWTH -- -- No fungus isolated to date -- -- -- STAIN DESCRIPTION Occasional Polymorphonuclear leukocytes Many Polymorphonuclear leukocytes Few Polymorphonuclear leukocytes -- -- -- Few Gram positive cocci Few Gram positive cocci Many Gram positive cocci CULTURE GROWTH Light growth, additional studies pending Few Staphylococcus aureus Few Staphylococcus aureus MRSA, This patient may require isolation. -- -- -- BLOOD CULTURE GROWTH -- -- -- -- No growth No growth QUANT URINE CULTURE GROWTH -- -- -- No significant growth -- -- Assessment and Plan IMPRESSION : Principal Problem: Sepsis (HCC) Active Problems: Dyslipidemia, goal LDL below 130 Obstructive sleep apnea DICK (acute kidney injury) (HCC) Cavitary lesion of lung MRSA bacteremia Anemia Lytic bone lesion of femur Acute deep vein thrombosis (DVT) of right lower extremity (HCC) Prostate abscess Endocarditis of mitral valve Family history of lung cancer Resolved Problems: * No resolved hospital problems. * DIFFERENTIAL AND PLAN: Sepsis MRSA bacteremia abscess between the prostate and rectum Osteomyelitis of right distal femur Infective endocarditis Likely lung abscess ( lytic lung lesion) Continue vancomycin per pharmacy Blood culture- MRSA Infectious disease consult- Continue Vancomycin till 01/31/2014 Blood cultures 12/20 with NGTD Preliminary tissue cultures 12/21 with few staph aureus -pathology result to rule out cancer not resulted yet Status post biopsy of distal femur and bone debridement for osteomyelitis General Surgery advises that non drainable abscess between prostate and rectum which need to be followed nearing end of antibiotics Lung lesion also needs to be followed up nearing ending of antibiotics Urology consult appreciated With ortho underwent- percutaneous biopsy right femur on 2023 Saucerization / bone debridement of right distal femur on 12/25/2023 Anemia Most likely of chronic disease in with acute sepsis Has got multiple transfusion Likely inflammatory anemia No bleeding On heparin Gtt for below Monitor H/H - transfuse for Hb < 7 DICK Worsening creatinine likely ATN reviewed urine electrolytes/US renal /protien creatinine ratio Nephrology consulted and appreciate recommendation 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 * Sandra Bhagat MD - 12/27/2023 9:09 AM EDT Images from the original note were not included. PROGRESS NOTE - Nephrology [facility] [place] [id number] Name: Rogelio Barrera Location: [facility] [place] H678/A Date: 12/27/2023 Time: 9:09 AM BACKGROUND 58 year old Male - Obese BMI 31, OFELIA on CPAP HTN on JESSE Hx of Rt knee pain , imaging showed lytic bone lesion OM vs malignancy Was planned for Bone Bx - Admitted to [facility] with encephalopathy, found to have sepsis with high grade fever Started on broad spectrum antibiotics, evaluation showed MRSA bacteremia Imaging showed distal femoral osteomyelitis with probable septic arthritis + Abscess bladder/colon + cavitary lung lesions KIERSTEN also showed IE - Shifted to [facility] [place] for [place] of care s/p Bone Bx that showed MRSA S/p Saucerization / bone debridement as treatment for suspected infection of right distal femur. today - Being followed for DICK SUBJECTIVE: Feel better Good oral intake, however mentioned frustration with hospital food being cold Pain present at surgery site, but controlled OBJECTIVE: Vital Signs last 24 Hours: Systolic BP: Most Recent Systolic BP Av.5 mmHg Min: 123 mmHg Max: 147 mmHg Temperature: Most Recent Temperature Av.3 C Min: 36.39 C Max: 37.78 C Pulse: Pulse Av.3 Min: 78 Max: 113 Respirations: Resp Av Min: 14 Max: 18 SpO2: SpO2 Av % Min: 95 % Max: 100 % Sitting in chair, looks much better compared to initial assessment HEENT; No pallor conjunctiva or yellowish sclera, short obese neck Lung; decrease breath sounds bilaterally, no added sounds Pericardium; RRR, normal S1, S2. No murmurs Abdomen; soft, non tender, not distended MSK; +1 edema on left, right thigh/knee dressing Neuro; Conscious, alert, oriented, no facial asymmetry, moving his arms Straight cath done on surgery night showed output of 700 then 500 Polyruric following duffy LABS: Lab results within last 7 days (see chart for full results) Units 12/27/23 0632 12/26/23201512/26/23 0738 HGB g/dL 7.1* 7.4* 7.0* HCT % 22.2* 22.8* 21.9* WBC K/uL 11.93* 13.01* 13.60* PLT K/uL 688* 722* 620* Lab results within last 7 days (see chart for full results) Units 12/27/23 0632 12/26/23 0643 12/25/23 0655 Sodium mmol/L 139 133* 129* Potassium mmol/L 3.8 4.1 3.4* Chloride mmol/L 101 94* 93* CO2 mmol/L 26 25 24 BUN mg/dL 24* 21* 16 Creatinine mg/dL 3.1* 2.9* 2.5* Lab results within last 7 days (see chart for full results) Units 12/27/23 0632 12/26/23 0643 12/25/23 0655 12/22/23 0552 12/21/23 2246 Calcium mg/dL 8.2* 7.9* 8.1* < > 8.0* Magnesium mg/dL -- -- -- -- 1.8 Phosphorus mg/dL 3.2 5.4* 3.1 < > 2.3* Albumin g/dL 2.6* 2.7* 2.5* < > 2.4* < > = values in this interval not displayed. IMAGING: Reviewed IMPRESSION: DICK in setting of disseminated MRSA bacteremia - Etiology is multifactorial; obstructive Uropathy with high risk for septic ATN/infectious GN/Septic Emoboli - Polyuric following duffy insertion, clearance lagging Acid/Base; HCO3 24 Electrolyte; HypoNa, HypoK Uremia; BUN 24, levels not high to cause Volume; Mostly Eu-Hyper BP; Stable ID; Monotherapy Vanco Anemia; Hb 7.1 PLAN: - No indication for HD today - Will advise for gentle hydration, can be started on NS 75 ml/hr - Treat underlying infection (covered with Vanco, source control done with surgical debridement) - DICK precautions (Strict I/O, Avoid nephrotoxic drugs, Renally adjusted dosing) Patient was seen and examined, Discussed with Dr Pressley Plan of care explained to the patient, showed comprehension and agreement Discussed with primary team Sandra Bhagat MD Nephrology Fellow Associated attestation - Jose R Pressley MD - 12/27/2023 9:46 PM EDT I saw and evaluated the patient today. I have reviewed the trainee note and agree. * Ed Melissa MD - 12/26/2023 11:29 AM EDT Images from the original note were not included. [facility] H678/A INTERVAL HISTORY: Patient was seen and examined. Was getting cleaned up during initial encounter and did not verbalize any complaints. Patient was seen again later in detail and examined. He was eating his lunch. He was concerned about his confusion but is not confused at the time of encounter he says. When I asked about his POA he did not want me to call anyone at this time. Patient was confused overnight for which he had received Seroquel and Zyprexa. Objective Physical Exam Most Recent Vital Signs: BP: 123 mmHg/70 mmHg (12/26/23 1053) Pulse: 91 (12/26/23 1053) Temp: 36.39 C (12/26/23 1053) Temp Summary: Temp Min: 35.9 C (96.6 F) Max: 36.9 C (98.4 F) SpO2: 100 % (12/26/23 1053) O2 flow rate: 2 L/MIN (12/26/23 1053) Supplemental O2 Delivery: Nasal Cannula (12/26/23 105) General: alert, no acute distress Eye Exam: PERRLA, extraocular movements intact, conjunctiva are pink and non- injected, sclera clear Heart: regular rate & rhythm, no murmurs and no gallops Lungs: normal respiratory effort, lungs clear to auscultation Abdomen: abdomen soft, non-tender, normal bowel sounds and no masses or organomegaly MSK/Extremities: Right leg with 2+ pitting edema from the foot to mid thigh, distal neurovascularlyintact; left leg without edema also distal neurovascularly intact. No cyanosis. Right lateral thighwith small dressing, C/D/I. Vascular: Pulses FARHAD - radial 2+, pedal 2+ Neuro Exam: alert & oriented x 3 with fluent speech, no focal motor/sensory deficits, reflexes normal and symmetric Skin: skin color, texture, turgor are normal, no rashes or significant lesions Psych: Normal mood and affect Neuro: Appearance: No acute distress Mental Status: alert and oriented x 4 STUDIES: Labs and other studies reviewed with pertinent findings noted below: Latest Reference Range & Units 12/26/23 06:43 Sodium 135 - 146 mmol/L 133 (L) Potassium 3.5 - 5.1 mmol/L 4.1 Chloride 98 - 107 mmol/L 94 (L) CO2 22 - 32 mmol/L 25 BUN 6 - 20 mg/dL 21 (H) Creatinine 0.6 - 1.2 mg/dL 2.9 (H) Estimated Glomerular Filtration Rate >=60 mL/min 25 (L) Anion Gap 7 - 15 mmol/L 14 Glucose 70 - 120 mg/dL 158 (H) Calcium 8.4 - 10.2 mg/dL 7.9 (L) Phosphorus 2.5 - 4.8 mg/dL 5.4 (H) (L): Data is abnormally low (H): Data is abnormally high Latest Reference Range & Units 12/26/23 07:38 WBC 4.00 - 10.80 K/uL 13.60 (H) RBC 4.50 - 5.25 M/uL 2.64 HGB 14.0 - 16.8 g/dL 7.0 (L) HCT 40.0 - 48.4 % 21.9 (L) MCV 82.0 - 99.5 fL 83.0 MCH 27.0 - 34.0 pg 26.5 MCHC 32.0 - 36.0 g/dL 32.0 RDW 11.5 - 15.5 % 17.0 PLT 140 - 400 K/uL 620 (H) MPV 6.6 - 11.1 fL 8.7 (H): Data is abnormally high (L): Data is abnormally low Rpt: View report in Results Review for more information Recent Cultures (2 Weeks) 12/25/2023 12/25/2023 12/22/2023 12/22/2023 12/21/2023 12/21/2023 11:20 AM 11:19 AM 6:17 PM 12:06 AM 10:49 PM 10:46 PM FUNGUS STAIN DESCRIPTION -- -- No yeast or hyphae seen. -- -- -- FUNGUS CULTURE GROWTH -- -- No fungus isolated to date -- -- -- STAIN DESCRIPTION Occasional Polymorphonuclear leukocytes Many Polymorphonuclear leukocytes Few Polymorphonuclear leukocytes -- -- -- Few Gram positive cocci Few Gram positive cocci Many Gram positive cocci CULTURE GROWTH Light growth, additional studies pending -- Few Staphylococcus aureus MRSA, This patient may require isolation. -- -- -- BLOOD CULTURE GROWTH -- -- -- -- No growth to date No growth to date QUANT URINE CULTURE GROWTH -- -- -- No significant growth -- -- Assessment and Plan IMPRESSION : Principal Problem: Sepsis (HCC) Active Problems: Dyslipidemia, goal LDL below 130 Obstructive sleep apnea DICK (acute kidney injury) (HCC) Cavitary lesion of lung MRSA bacteremia Anemia Lytic bone lesion of femur Acute deep vein thrombosis (DVT) of right lower extremity (HCC) Prostate abscess Endocarditis of mitral valve Family history of lung cancer Resolved Problems: * No resolved hospital problems. * DIFFERENTIAL AND PLAN: Sepsis MRSA bacteremia abscess between the prostate and rectum Osteomyelitis of right distal femur Infective endocarditis Likely lung abscess ( lytic lung lesion) Continue vancomycin per pharmacy Blood culture- MRSA Infectious disease consult- Continue Vancomycin till 01/31/2014 Blood cultures 12/20 with NGTD Preliminary tissue cultures 12/21 with few staph aureus -pathology result to rule out cancer not resulted yet Status post biopsy of distal femur and bone debridement for osteomyelitis General Surgery advises that non drainable abscess between prostate and rectum which need to be followed nearing end of antibiotics Lung lesion also needs to be followed up nearing ending of antibiotics Urology consult appreciated With ortho underwent- percutaneous biopsy right femur on 2023 Saucerization / bone debridement of right distal femur on 12/25/2023 Anemia Most likely of chronic disease in with acute sepsis Has got multiple transfusion Likely inflammatory anemia No bleeding On heparin Gtt for below Monitor H/H - transfuse for Hb < 7 DICK Worsening creatinine likely ATN Will send urine electrolytes/US renal /protien creatinine ratio Nephrology consulted and appreciate recommendation 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 * Ginger Shepherd [facility] - 12/25/2023 4:48 PM EDT PHARMACY PHARMACOKINETIC CONSULT [address] [address] Name: Rogelio Barrera [place] [facility] [place] H678/A Date: 12/25/2023 Time: 4:49 PM Requesting Service: Med K Bacteria being treated: MRSA Source of infection: Blood Medication(s) being managed: Vancomycin Pharmacokinetic calculations will be performed utilizing Cartesian software. Lab information: Lab Results Component Value Date/Time WBC 12.41 (H) 12/25/2023 06:55 AM WBC 13.07 (H) 12/24/2023 04:44 PM WBC 12.35 (H) 12/24/2023 05:31 AM WBC 13.58 (H) 2023 05:38 AM WBC 14.20 (H) 12/22/2023 11:14 PM WBC 5.3 03/22/1998 12:43 PM WBC 5.6 06/01/1996 04:00 PM Lab Results Component Value Date/Time BUN 16 12/25/2023 06:55 AM BUN 13 12/24/2023 05:31 AM BUN 12 2023 05:38 AM BUN 12 12/22/2023 05:52 AM BUN 13 12/21/2023 10:46 PM BUN 14 08/23/2019 09:47 AM BUN 23 (H) 08/03/2017 10:46 AM BUN 14 04/21/2014 10:07 AM BUN 20 01/07/2012 09:05 AM BUN 19 12/31/2010 10:15 AM BUN 16 06/01/1996 04:00 PM Lab Results Component Value Date/Time CREAT 2.5 (H) 12/25/2023 06:55 AM CREAT 2.0 (H) 12/24/2023 05:31 AM CREAT 1.5 (H) 2023 05:38 AM CREAT 1.4 (H) 12/22/2023 05:52 AM CREAT 1.3 (H) 12/21/2023 10:46 PM CREAT 1.01 11/10/2021 12:00 AM CREAT 1.00 08/28/2020 12:00 AM CREAT 1.1 08/23/2019 09:47 AM CREAT 1.07 02/27/2019 12:00 AM CREAT 1.0 08/03/2017 10:46 AM CREAT 0.9 04/21/2014 10:07 AM CREAT 0.9 01/07/2012 09:05 AM CREAT 0.9 12/31/2010 10:15 AM CREAT 0.9 06/01/1996 04:00 PM ANTIMICROBIALS GIVEN (last 28 hours) Date/Time Action Medication Dose Rate 12/25/23 1134 Given vancomycin (Vancocin) inj 4 g 12/24/23 1437 New Bag vancomycin (Vancocin) 1,250 mg in NSS 250 mL ivpb 1,250 mg 183.33 mL/hr Wt Readings from Last 1 Encounters: 12/25/23 88.8 kg (195 lb 12.3 oz) Levels to date: Lab Results Component Value Date/Time VANCORANDOM 22.5 12/25/2023 06:55 AM VANCORANDOM 16.1 12/24/2023 11:26 AM VANCORANDOM 18.8 2023 05:38 AM Impression: Rogelio Barrera is a/an 58 year old male receiving vancomycin therapy. The pharmacokinetic target for therapy is AUC24,SS (range) 400-600mg/L.hr Assessment and Plan: Analysis of the most recent level(s) using youcalc gives the following patient-specific pharmacokinetic parameters: CL: 2.17 L/hr V: 61.8 L T1/2: 20.9 hours Using these values, the current regimen of Vancomycin 1250 mg IV every 24 hours is predicted to result in a steady-state trough of 16.7 mg/L and AUC24 of 572 mg/L.hr. At this time we recommend a regimen of 1000 mg IV every 24 hours, which is predicted to result in a steady-state trough of 13.9 mg/Land AUC24 of 474 mg/L.hr. Obtain next vancomycin level 2 days or earlier if renal function changes drastically. Pharmacy will continue to follow and dose as appropriate by renal function, culture results, infectious disease input, and overall clinical status. Contact the Pharmacy at extension [phone] if there are any questions. Cuca VeronicaD, BCOP Hematology/Oncology Clinical Pharmacist [facility] 12/25/2023, 4:51 PM * Ed Melissa MD - 12/25/2023 3:42 PM EDT Images from the original note were not included. [facility] H678/A INTERVAL HISTORY: Patient was seen and examined after surgery. Overnight he was delirious and just after surgery he was slightly confused but again when during my encounter he could answer questions correctly including my name. Objective Physical Exam Most Recent Vital Signs: BP: 137 mmHg/80 mmHg (12/25/23 142) Pulse: 85 (12/25/23 142) Temp: 36.11 C (12/25/23 142) Temp Summary: Temp Min: 36.1 C (97 F) Max: 37.5 C (99.5 F) SpO2: 100 % (12/25/23 1400) O2 flow rate: 2 L/MIN (12/25/23 142) Supplemental O2 Delivery: Nasal Cannula (12/25/231420) General: alert, no acute distress Eye Exam: PERRLA, extraocular movements intact, conjunctiva are pink and non- injected, sclera clear Heart: regular rate & rhythm, no murmurs and no gallops Lungs: normal respiratory effort, lungs clear to auscultation Abdomen: abdomen soft, non-tender, normal bowel sounds and no masses or organomegaly MSK/Extremities: Right leg with 2+ pitting edema from the foot to mid thigh, distal neurovascularlyintact; left leg without edema also distal neurovascularly intact. No cyanosis. Right lateral thighwith small dressing, C/D/I. Vascular: Pulses FARHAD - radial 2+, pedal 2+ Neuro Exam: alert & oriented x 3 with fluent speech, no focal motor/sensory deficits, reflexes normal and symmetric Skin: skin color, texture, turgor are normal, no rashes or significant lesions Psych: Normal mood and affect Neuro: Appearance: No acute distress Mental Status: alert and oriented x 4 STUDIES: Labs and other studies reviewed with pertinent findings noted below: Latest Reference Range & Units 12/25/23 06:55 Sodium 135 - 146 mmol/L 129 (L) Potassium 3.5 - 5.1 mmol/L 3.4 (L) Chloride 98 - 107 mmol/L 93 (L) CO2 22 - 32 mmol/L 24 BUN 6 - 20 mg/dL 16 Creatinine 0.6 - 1.2 mg/dL 2.5 (H) Estimated Glomerular Filtration Rate >=60 mL/min 29 (L) Anion Gap 7 - 15 mmol/L 12 Glucose 70 - 120 mg/dL 134 (H) Calcium 8.4 - 10.2 mg/dL 8.1 (L) Phosphorus 2.5 - 4.8 mg/dL 3.1 (L): Data is abnormally low (H): Data is abnormally high Latest Reference Range & Units 12/25/23 06:55 WBC 4.00 - 10.80 K/uL 12.41 (H) RBC 4.50 - 5.25 M/uL 3.09 HGB 14.0 - 16.8 g/dL 8.2 (L) HCT 40.0 - 48.4 % 25.3 (L) MCV 82.0 - 99.5 fL 81.9 MCH 27.0 - 34.0 pg 26.5 MCHC 32.0 - 36.0 g/dL 32.4 RDW 11.5 - 15.5 % 17.0 PLT 140 - 400 K/uL 660 (H) MPV 6.6 - 11.1 fL 8.8 (H): Data is abnormally high (L): Data is abnormally low Rpt: View report in Results Review for more information Recent Cultures (2 Weeks) 12/25/2023 12/22/2023 12/22/2023 12/21/2023 12/21/2023 11:19 AM 6:17 PM 12:06 AM 10:49 PM 10:46 PM FUNGUS STAIN DESCRIPTION -- No yeast or hyphae seen. -- -- -- FUNGUS CULTURE GROWTH -- No fungus isolated to date -- -- -- STAIN DESCRIPTION Many Polymorphonuclear leukocytes Few Polymorphonuclear leukocytes -- -- -- Few Gram positive cocci Many Gram positive cocci CULTURE GROWTH -- Few Staphylococcus aureus MRSA, This patient may require isolation. -- -- -- BLOOD CULTURE GROWTH -- -- -- No growth to date No growth to date QUANT URINE CULTURE GROWTH -- -- No significant growth -- -- Assessment and Plan IMPRESSION : Principal Problem: Sepsis (HCC) Active Problems: Dyslipidemia, goal LDL below 130 Obstructive sleep apnea DICK (acute kidney injury) ([facility]) Cavitary lesion of lung MRSA bacteremia Anemia Lytic bone lesion of femur Acute deep vein thrombosis (DVT) of right lower extremity (HCC) Prostate abscess Endocarditis of mitral valve Family history of lung cancer Resolved Problems: * No resolved hospital problems. * DIFFERENTIAL AND PLAN: Sepsis MRSA bacteremia abscess between the prostate and rectum Osteomyelitis of right distal femur Infective endocarditis Likely lung abscess Continue vancomycin per pharmacy Blood culture- MRSA Infectious disease consult- Continue Vancomycin till 01/31/2014 Blood cultures 12/20 with NGTD Preliminary tissue cultures 12/21 with few staph aureus -pathology result to rule out cancer not resulted yet Status post biopsy of distal femur and bone debridement for osteomyelitis General Surgery advises that non drainable abscess between prostate and rectum which need to be followed nearing end of antibiotics Lung lesion also needs to be followed up nearing ending of antibiotics Urology consult appreciated Anemia Most likely of chronic disease in with acute sepsis Has got multiple transfusion Likely inflammatory anemia No bleeding DICK Worsening creatinine likely ATN Will send urine electrolytes Nephrology will be consulted 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 tomorrow as per discussion with Orthopedics PHARMACOLOGIC VTE PROPHYLAXIS: This patient does not have an active medication from one of the medication groupers. CODE STATUS: Full Code EXPECTED DISCHARGE DATE: No information available I spent a total of 52 minutes coordinating, documenting, and providing care for this patient excluding time spent in the performance of separately billed services. * Sebas Sheridan MD - 12/24/2023 6:19 PM EDT Orthopedics I met with the patient this evening. I discussed the recent culture results showing MRSA from the right femur. I explained that the culture results support a diagnosis of osteomyelitis. I also explained that the pathology results remain pending. I discussed my recommended surgical treatment for osteomyelitis; that is, operative debridement. I explained that operative debridement of the bone with IV antibiotics could improve the chances of successful cure of the infection relative to IV antibiotics alone. I explained that treatment of osteomyelitis is challenging and relapse of infection, fracture of the femur, or other serious and limb threatening complications can happen despite optimal treatment. I reviewed the risks associated with the surgery. After careful discussion of the options of nonoperative treatment and operative debridement, reviewing the risks and benefits of these options, the patient states that he wishes to proceed with scheduling the surgical treatment for tomorrow. However, he also hopes to discuss the recommended surgerywith his family by telephone and reserves the option of cancelling the surgery if he changes his mind overnight. I appreciate his thoughtful consideration of my recommended surgery. We look forward to meeting again tomorrow in further discussion. I will make the patient NPO p midnight in preparation for surgery. Sebas Sheridan MD * Sebas Sheridan MD - 12/24/2023 5:36 PM EDT Orthopedics Mr. Barrera's cultures of the right distal femur is growing MRSA. I will await the final pathology evaluation, before recommending treatment, but I anticipate a diagnosis of chronic osteomyelitis. I support the ID fellow recommendations for IV vancomycin. 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 If osteomyelitis is confirmed pathologically, my recommendation would be operative debridement / saucerization of the femur. I will make the patient NPO after midnight tonight in the possibility thatwe may be able to have pathology results as soon as tomorrow and proceed with surgery. Sebas Sheridan MD * Aidan Mc MD - 12/24/2023 5:13 PM EDT DISCHARGE PROGRESS NOTE - Infectious Disease [facility] [place] [address] Name: Rogelio Barrera Location: [facility] [place] H678/A Date: 12/24/2023 Time: 5:14 PM SUBJECTIVE: Patient seen at bedside. Has no acute complaints, family questions answered as possible. Denies any significant rash, fevers, chills. Patient with essentially disseminated MRSA stemming from possibly initial insult to right knee which has MRSA osteomyelitis with pathology still pending.Abscesses also involve prostate/rectum/cavitary lung lesion. Patient's current clinical picture being presumed all secondary to Staph aureus. CRP 311. KIERSTEN with 0.5 cm X 0.3 cm mobile echodensity in the left atrial aspect of the P1 scallop of the posterior mitral valve consistent with a small vegetation with trace mitral regurgitation. No other identifiable abnormalities. OBJECTIVE: Most Recent Vital Signs: BP: 128 mmHg/73 mmHg (12/24/231413) Pulse: 91 (12/24/231413) Temp: 36.5 C (12/24/231413) Temp Summary: Temp Min: 35.4 C (95.7 F) Max: 38.7 C (101.7 F) SpO2: 98 % (12/24/231413) O2 flow rate: 0 L/MIN (12/24/231413) Supplemental O2 Delivery: Room Air, None (12/24/231413) Vital Signs Last 24 Hours: Systolic BP: Most Recent Systolic BP Av.1 mmHg Min: 112 mmHg Max: 136 mmHg Temperature: Most Recent Temperature Av.9 C Min: 35.39 C Max: 38.72 C Pulse: Pulse Av.6 Min: 74 Max: 102 Respirations: Resp Av Min: 18 Max: 18 SpO2: SpO2 Av.5 % Min: 93 % Max: 99 % GENERAL: Appears as stated age. No acute distress. HENT: Moist mucous membranes. No scleral icterus. LUNGS: Clear to auscultation bilaterally. No accessory muscle use. CARDIOVASCULAR: Regular rate and rhythm. No murmur. ABDOMEN: Soft, non-tender and non-distended. No palpable masses. EXTREMITIES: No edema. SKIN: No rashes or lesions. Warm. NEUROLOGIC: No focal neurological deficits. Cranial nerves grossly intact. FINAL IMPRESSION AND RECOMMENDATIONS: Syndrome Cahto mitral endocarditis/prostate abscess Microbiology MRSA Antibiotic Vancomycin IV goal trough 15-20, per pharmacy may be adjusted based on renal function End Date 02/01/24 Vascular access: Please contact physician prior to discontinuation/removal. Recommended followup imaging studies: CT ABD/Pelvis w contrast in approx 5 weeks 01/26/24 LABORATORY MONITORING: Lab Test Frequency End Date BMP CBC with diff Q week 02/01/24 Lab Test Frequency End Date CRP Q 2 weeks 02/01/24 PROVIDERS: Following ID Physician ID clinic follow-up date Sophia Rios and Aidan Mc 6-8 weeks Associated attestation - Sophia Rios MD - 12/28/2023 6:04 PM EDT Date of service: 12/24/2023 I have discussed the patient's management with the medical trainee and agree with the note. Please refer to the documented findings and plan of care. The patient's service consisted of an evaluation.I have seen and evaluated the patient. Sophia Rios MD I spent a total of 40 minutes coordinating, documenting, and providing care for this patient excluding time spent in the performance of separately billed services. * Linda Ybarra, [facility] - 12/24/2023 1:24 PM EDT PHARMACY PHARMACOKINETIC CONSULT [address] [address] Name: Rogelio Barrera [place] [facility] [place] H678/A Date: 12/24/2023 Time: 1:24 PM Requesting Service: Med K Bacteria being treated: MRSA Source of infection: Blood Medication(s) being managed: Vancomycin Pharmacokinetic calculations will be performed utilizing Cartesian software. Lab information: Lab Results Component Value Date/Time WBC 12.35 (H) 12/24/2023 05:31 AM WBC 13.58 (H) 2023 05:38 AM WBC 14.20 (H) 12/22/2023 11:14 PM WBC 14.10 (H) 12/22/2023 02:27 PM WBC 13.85 (H) 12/22/2023 05:52 AM WBC 5.3 03/22/1998 12:43 PM WBC 5.6 06/01/1996 04:00 PM Lab Results Component Value Date/Time BUN 13 12/24/2023 05:31 AM BUN 12 2023 05:38 AM BUN 12 12/22/2023 05:52 AM BUN 13 12/21/2023 10:46 PM BUN 40 (H) 12/16/2023 04:38 PM BUN 14 08/23/2019 09:47 AM BUN 23 (H) 08/03/2017 10:46 AM BUN 14 04/21/2014 10:07 AM BUN 20 01/07/2012 09:05 AM BUN 19 12/31/2010 10:15 AM BUN 16 06/01/1996 04:00 PM Lab Results Component Value Date/Time CREAT 2.0 (H) 12/24/2023 05:31 AM CREAT 1.5 (H) 2023 05:38 AM CREAT 1.4 (H) 12/22/2023 05:52 AM CREAT 1.3 (H) 12/21/2023 10:46 PM CREAT 1.9 (H) 12/16/2023 04:38 PM CREAT 1.01 11/10/2021 12:00 AM CREAT 1.00 08/28/2020 12:00 AM CREAT 1.1 08/23/2019 09:47 AM CREAT 1.07 02/27/2019 12:00 AM CREAT 1.0 08/03/2017 10:46 AM CREAT 0.9 04/21/2014 10:07 AM CREAT 0.9 01/07/2012 09:05 AM CREAT 0.9 12/31/2010 10:15 AM CREAT 0.9 06/01/1996 04:00 PM ANTIMICROBIALS GIVEN (last 28 hours) Date/Time Action Medication Dose Rate 12/23/23 1326 New Bag vancomycin (Vancocin) 1,250 mg in NSS 250 mL ivpb 1,250 mg 183.33 mL/hr Wt Readings from Last 1 Encounters: 12/24/23 88.5 kg (195 lb 1.6 oz) Levels to date: Lab Results Component Value Date/Time VANCORANDOM 16.1 12/24/2023 11:26 AM VANCORANDOM 18.8 2023 05:38 AM VANCORANDOM 13.4 12/22/2023 11:03 AM Impression: Rogelio Barrera is a/an 58 year old male receiving vancomycin therapy. The pharmacokinetic target for therapy is AUC24,SS (range) 400-600mg/L.hr Assessment and Plan: Analysis of the most recent level(s) using Anipip[employer] gives the following patient-specific pharmacokinetic parameters: CL: 2.39 L/hr V: 60.9 L T1/2: 18.9 hours Using these values, the current regimen of Vancomycin 1250 mg IV every 24 hours is predicted to result in a steady-state trough of 14.8 mg/L and AUC24 of 526 mg/L.hr. At this time we recommend a regimen of 1250 mg IV every 24 hours, which is predicted to result in a steady-state trough of 14.8 mg/Land AUC24 of 526 mg/L.hr. Obtain next vancomycin level 2 days. Pharmacy will continue to follow and dose as appropriate by renal function, culture results, infectious disease input, and overall clinical status. Contact the Pharmacy at extension [phone] if there are any questions. Linda Ybarra RPh * Ramón Urban RN - 12/24/2023 11:51 AM EDT Transfusion being with no S/S of an adverse reaction * Pamela Wood PA-C - 12/24/2023 7:32 AM EDT Images from the original note were not included. [facility] H678/A Admission Date: 12/21/2023 INTERVAL HISTORY: Patient had a transient spell of disorientation upon awakening overnight, was not wearing CPAP whensleeping. Otherwise no acute events overnight. Doing well this morning. Continues with right leg swelling with pain that is controlled on current regimen. Appetite is improved, denies N/V or abdominal pain. Urinating without difficulty. Continues with loose stools since being on antibiotics with one stool per day. Objective Physical Exam Most Recent Vital Signs: BP: 118 mmHg/62 mmHg (12/24/23 1238) Pulse: 85 (12/24/23 1238) Temp: 37.39 C (12/24/23 1238) Temp Summary: Temp Min: 35.4 C (95.7 F) Max: 38.7 C (101.7 F) SpO2: 96 % (12/24/23 1238) O2 flow rate: 0 L/MIN (12/24/23 123) Supplemental O2 Delivery: Room Air, None (12/24/23 123) General: alert, no acute distress Eye Exam: PERRLA, extraocular movements intact, conjunctiva are pink and non- injected, sclera clear Heart: regular rate & rhythm, no murmurs and no gallops Lungs: normal respiratory effort, lungs clear to auscultation Abdomen: abdomen soft, non-tender, normal bowel sounds and no masses or organomegaly MSK/Extremities: Right leg with 2+ pitting edema from the foot to mid thigh, distal neurovascularlyintact; left leg without edema also distal neurovascularly intact. No cyanosis. Right lateral thighwith small dressing, C/D/I. Vascular: Pulses FARHAD - radial 2+, pedal 2+ Neuro Exam: alert & oriented x 3 with fluent speech, no focal motor/sensory deficits, reflexes normal and symmetric Skin: skin color, texture, turgor are normal, no rashes or significant lesions Psych: Normal mood and affect Neuro: Appearance: No acute distress Mental Status: alert and oriented x 4 STUDIES: Labs and other studies reviewed with pertinent findings noted below: Latest Reference Range & Units 12/24/23 05:31 Sodium 135 - 146 mmol/L 129 (L) Potassium 3.5 - 5.1 mmol/L 3.5 Chloride 98 - 107 mmol/L 93 (L) CO2 22 - 32 mmol/L 24 BUN 6 - 20 mg/dL 13 Creatinine 0.6 - 1.2 mg/dL 2.0 (H) Estimated Glomerular Filtration Rate >=60 mL/min 39 (L) Anion Gap 7 - 15 mmol/L 12 Glucose 70 - 120 mg/dL 168 (H) Calcium 8.4 - 10.2 mg/dL 7.9 (L) Phosphorus 2.5 - 4.8 mg/dL 3.2 INR 0.8 - 1.2 1.2 Prothrombin Time 11.6 - 15.2 seconds 15.1 CBC Rpt ! WBC 4.00 - 10.80 K/uL 12.35 (H) RBC 4.50 - 5.25 M/uL 2.49 HGB 14.0 - 16.8 g/dL 6.6 (L) HCT 40.0 - 48.4 % 20.7 (L) MCV 82.0 - 99.5 fL 83.1 MCH 27.0 - 34.0 pg 26.5 MCHC 32.0 - 36.0 g/dL 31.9 RDW 11.5 - 15.5 % 16.4 PLT 140 - 400 K/uL 549 (H) MPV 6.6 - 11.1 fL 8.6 Albumin 3.8 - 5.0 g/dL 2.6 (L) (L): Data is abnormally low (H): Data is abnormally high !: Data is abnormal Rpt: View report in Results Review for more information Recent Cultures (2 Weeks) 12/22/2023 12/22/2023 12/21/2023 12/21/2023 6:17 PM 12:06 AM 10:49 PM 10:46 PM FUNGUS STAIN DESCRIPTION No yeast or hyphae seen. -- -- -- FUNGUS CULTURE GROWTH No fungus isolated to date -- -- -- STAIN DESCRIPTION Few Polymorphonuclear leukocytes -- -- -- Many Gram positive cocci CULTURE GROWTH Few Staphylococcus aureus -- -- -- BLOOD CULTURE GROWTH -- -- No growth to date No growth to date QUANT URINE CULTURE GROWTH -- No significant growth -- -- Assessment and Plan IMPRESSION : Principal Problem: Sepsis (HCC) Active Problems: Dyslipidemia, goal LDL below 130 Obstructive sleep apnea DICK (acute kidney injury) (HCC) Cavitary lesion of lung MRSA bacteremia Anemia Lytic bone lesion of femur Acute deep vein thrombosis (DVT) of right lower extremity (HCC) Prostate abscess Endocarditis of mitral valve Family history of lung cancer Resolved Problems: * No resolved hospital problems. * DIFFERENTIAL AND PLAN: Sepsis, suspected sources include thrombus of the right lower extremity, right femoral osteomyelitis, cardiac vegetation, respiratory from cavitary lesion, possible abscess between the prostate and rectum, urinary MRSA bacteremia - Continue inpatient with telemetry today - Continue vancomycin per pharmacy - Outside hospital blood cultures growing MRSA - Infectious disease consult, awaiting final recs Continue Vancomycin per pharmacy Discontinued Zosyn 12/21 Bacterial/fungal/AFB culture of distal femur/other tissue obtained Repeat blood cultures every 24-48 hours if most recent become positive - Blood cultures 12/20 with NGTD - Preliminary tissue cultures 12/21 with few staph aureus - A.m. labs: CBC, BMP, Mag, phos Possible distal femoral osteomyelitis versus probable septic arthritis as indicated on MRI from 12/11/2023, ? Lytic lesion Patient had been following with Dr. Sheridan as neoplasm not entirely excluded and biopsy may be required for definitive diagnosis Continue with sepsis treatment as above Orthopedic consult, recommendations appreciated S/P biopsy right femur lesion 12/22/23 Surgical pathology in process RLE weight bearing as tolerated Fluid/gas collection between the prostate and rectum, Outside facility discuss with our interventional radiology team who felt that the collection was too small to be drained They also discussed with their general surgical team who also agreed that the fluid was too small to be drained and recommended to continue treatment with just antibiotics Low threshold to reimage should clinical presentation decline Urology consulted, appreciate recs No acute urologic intervention Imaging concerning for prostatic abscess If concern for abscess persists, recommend colorectal surgery consult Colorectal surgery consulted, appreciate recs No acute surgical interventions Can consult IR to see if window for drainage, discussed prior as above - IR team felt collection was too small to be drained Signed off Cardiac vegetation, 0.5 cm x 0.3 cm mobile echodensity in the left atrial aspect of the P1 scallop of the posterior mitral valve leaflet In setting of MRSA bacteremia Follow up recommendations from Infectious Disease and continue broad-spectrum antibiotic coverage for sepsis as above Anemia Most likely of chronic disease in with acute sepsis transfuse to maintain hemoglobin equal to or greater than 7.0 Type and screen obtain last on 12/21/2023, repeat today when obtaining post- transfusion CBC Transfusions 1U PRBC on 12/21 1U PRBC on 12/23 Daily CBC DICK Patient presented to outside facility with a creatinine of 2.19 Pain Management Nurse Practitioner increased from 1.5 --> 2.0 on AM labs Start isolyte infusion at 75 mL/hr x 10 hours 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, avoid hypotension, dose all medications based on creatinine clearance Monitor I's/O's every shift RLE Occlusive DVT Continue heparin infusion Pulmonary cavitary lesion Unclear etiology, risk factors for infection and malignancy Low threshold to add on mycoplasma testing should Respiratory symptoms develop Further evaluation based on additional clinical findings may need biopsy for confirmation our patient has other clinical considerations to be treated prior to this Thoracic medicine consulted, appreciate recs Due to location of the lesions, not amenable to biopsy via bronchoscopy at this time Continue abx per ID Pulmonary hygiene: IS, Flutter, HOB > 30 degrees all times, aspiration precautions, OOB to ambulate when able Follow-up OP with Pulmonary medicine Chest CT in 4-6 weeks for re-assessment PHARMACOLOGIC VTE PROPHYLAXIS: hEParin CODE STATUS: Full Code EXPECTED DISCHARGE DATE: No information available I spent a total of 45 minutes coordinating, documenting, and providing care for this patient excluding time spent in the performance of separately billed services. Associated attestation - Ed Melissa MD - 12/25/2023 7:52 AM EDT I have reviewed the advanced practitioner's documentation on the date of service referenced in note, and I agree with, and take responsibility for the plan of care. On, 12/24/2023 I spent a total of 45 minutes coordinating, documenting, and providing care for this patient excluding time spent in the performance of separately billed services or time spent by another provider/QHP. * Linda Ybarra [facility] - 2023 12:32 PM EDT PHARMACY PHARMACOKINETIC CONSULT [address] [address] Name: Rogelio Barrera [place] [facility] [place] H678/A Date: 2023 Time: 12:32 PM Requesting Service: Med K Bacteria being treated: MRSA Source of infection: Blood Medication(s) being managed: Vancomycin Pharmacokinetic calculations will be performed without utilizing Cartesian software due to meeting exclusion criteria (MENA Stage 2 or 3 DICK, or receiving renal replacement therapy [iHD, CRRT, PD]). Lab information: Lab Results Component Value Date/Time WBC 13.58 (H) 2023 05:38 AM WBC 14.20 (H) 12/22/2023 11:14 PM WBC 14.10 (H) 12/22/2023 02:27 PM WBC 13.85 (H) 12/22/2023 05:52 AM WBC 14.95 (H) 12/21/2023 10:46 PM WBC 5.3 03/22/1998 12:43 PM WBC 5.6 06/01/1996 04:00 PM Lab Results Component Value Date/Time BUN 12 2023 05:38 AM BUN 12 12/22/2023 05:52 AM BUN 13 12/21/2023 10:46 PM BUN 40 (H) 12/16/2023 04:38 PM BUN 18 07/09/2023 01:15 PM BUN 14 08/23/2019 09:47 AM BUN 23 (H) 08/03/2017 10:46 AM BUN 14 04/21/2014 10:07 AM BUN 20 01/07/2012 09:05 AM BUN 19 12/31/2010 10:15 AM BUN 16 06/01/1996 04:00 PM Lab Results Component Value Date/Time CREAT 1.5 (H) 2023 05:38 AM CREAT 1.4 (H) 12/22/2023 05:52 AM CREAT 1.3 (H) 12/21/2023 10:46 PM CREAT 1.9 (H) 12/16/2023 04:38 PM CREAT 1.0 07/09/2023 01:15 PM CREAT 1.01 11/10/2021 12:00 AM CREAT 1.00 08/28/2020 12:00 AM CREAT 1.1 08/23/2019 09:47 AM CREAT 1.07 02/27/2019 12:00 AM CREAT 1.0 08/03/2017 10:46 AM CREAT 0.9 04/21/2014 10:07 AM CREAT 0.9 01/07/2012 09:05 AM CREAT 0.9 12/31/2010 10:15 AM CREAT 0.9 06/01/1996 04:00 PM ANTIMICROBIALS GIVEN (last 28 hours) Date/Time Action Medication Dose Rate 12/22/23 1556 New Bag Piperacillin-Tazobactam (Zosyn) 4.5 g in 100 mL NSS ivpb (FOUR hour infusion) 4.5 g 27.5 mL/hr 12/22/23 1543 New Bag vancomycin (Vancocin) 1,250 mg in NSS 250 mL ivpb 1,250 mg 183.33 mL/hr Wt Readings from Last 1 Encounters: 12/22/23 87.5 kg (193 lb) Dosing and levels to date: Lab Results Component Value Date/Time VANCORANDOM 18.8 2023 05:38 AM VANCORANDOM 13.4 12/22/2023 11:03 AM VANCORANDOM 29.6 12/21/2023 10:46 PM Date Dose Admin Time Level (mcg/mL) Collected Time Notes/Comment 12/17-12/18 1000 mg q12 12/18-12/19 1250 mg q12h 12/19-12/20 1500 mg q12h 14.9 (trough) 12/21 1250 mg x1 1543 13.4 (random) 12/22 1250 mg x1 18.8 (AM labs) Impression: Patient is a 57 year old male to continue Vancomycin, dosing per levels for treatment of MRSA bacteremia. Plan/Recommendations: The patient's level was drawn random The level result of 18.8 mcg/mL is within, the goal range of 15-20 mcg/mL. Administer one time doseof 1250 mg IV Vancomycin. Obtain random level tomorrow pending course of patients renal function. Pharmacy will continue to follow and dose as appropriate by renal function, culture results, infectious disease input, and overall clinical status. * Sebas Sheridan MD - 2023 10:14 AM EDT Orthopedics I met with the patient this morning. We reviewed the biopsy performed yesterday. We continue to await biopsy results; these biopsy results can easily take up to a week or more. At this time, I see noapparent complication of the biopsy. I hope to be able to offer more treatment recommendations and options once the biopsy is complete. Sebas Sheridan MD * Pamela Wood PA-C - 2023 7:24 AM EDT Images from the original note were not included. [facility] H678/A Admission Date: 12/21/2023 INTERVAL HISTORY: No acute events overnight. Patient reports he has been tired with taking pain medications, otherwise has been feeling well. RLE remains swollen, no noted worsening. Denies shortness of breath, chest pain or cough. He is eating with no N/V or abdominal pain. Has some urinary hesitancy since admission, but urinating without retention. Denies known history of BPH. Denies dysuria or hematuria. He is having regular bowel movements, some stools being loose. No questions or concerns at this time. Objective Physical Exam Most Recent Vital Signs: BP: 120 mmHg/60 mmHg (12/23/23 1035) Pulse: 95 (12/23/23 1035) Temp: 36.89 C (12/23/231034) Temp Summary: Temp Min: 36.7 C (98.1 F) Max: 38.4 C (101.1 F) SpO2: 99 % (12/23/231034) O2 flow rate: 2 L/MIN (12/22/23 2100) Supplemental O2 Delivery: Room Air, None (12/23/231034) General: alert, no acute distress Eye Exam: PERRLA, extraocular movements intact, conjunctiva are pink and non- injected, sclera clear Heart: regular rate & rhythm, no murmurs and no gallops Lungs: normal respiratory effort, lungs clear to auscultation Abdomen: abdomen soft, non-tender, normal bowel sounds and no masses or organomegaly MSK/Extremities: Right leg with 2+ pitting edema from the foot to mid thigh, distal neurovascularlyintact; left leg without edema also distal neurovascularly intact. No cyanosis. Right lateral thighwith small dressing, C/D/I. Vascular: Pulses FARHAD - radial 2+, pedal 2+ Neuro Exam: alert & oriented x 3 with fluent speech, no focal motor/sensory deficits, reflexes normal and symmetric Skin: skin color, texture, turgor are normal, no rashes or significant lesions Psych: Normal mood and affect Neuro: Appearance: No acute distress Mental Status: alert and oriented x 4 STUDIES: Labs and other studies reviewed with pertinent findings noted below: Latest Reference Range & Units 12/23/23 05:38 Sodium 135 - 146 mmol/L 133 (L) Potassium 3.5 - 5.1 mmol/L 3.5 Chloride 98 - 107 mmol/L 98 CO2 22 - 32 mmol/L 23 BUN 6 - 20 mg/dL 12 Creatinine 0.6 - 1.2 mg/dL 1.5 (H) Estimated Glomerular Filtration Rate >=60 mL/min 55 (L) Anion Gap 7 - 15 mmol/L 12 Glucose 70 - 120 mg/dL 176 (H) Calcium 8.4 - 10.2 mg/dL 8.0 (L) Phosphorus 2.5 - 4.8 mg/dL 2.8 INR 0.8 - 1.2 1.2 Prothrombin Time 11.6 - 15.2 seconds 15.0 Heparin, Unfractionated <0.10 IU/mL <0.10 CBC Rpt ! WBC 4.00 - 10.80 K/uL 13.58 (H) RBC 4.50 - 5.25 M/uL 2.81 HGB 14.0 - 16.8 g/dL 7.4 (L) HCT 40.0 - 48.4 % 22.5 (L) MCV 82.0 - 99.5 fL 80.1 MCH 27.0 - 34.0 pg 26.3 MCHC 32.0 - 36.0 g/dL 32.9 RDW 11.5 - 15.5 % 16.2 PLT 140 - 400 K/uL 638 (H) MPV 6.6 - 11.1 fL 8.8 Albumin 3.8 - 5.0 g/dL 2.5 (L) Vancomycin Random 10.0 - 40.0 ug/mL 18.8 (L): Data is abnormally low (H): Data is abnormally high !: Data is abnormal Rpt: View report in Results Review for more information Recent Cultures (2 Weeks) 12/22/2023 12/22/2023 12/21/2023 12/21/2023 6:17 PM 12:06 AM 10:49 PM 10:46 PM FUNGUS STAIN DESCRIPTION No yeast or hyphae seen. -- -- -- FUNGUS CULTURE GROWTH No fungus isolated to date -- -- -- STAIN DESCRIPTION Few Polymorphonuclear leukocytes -- -- -- Many Gram positive cocci BLOOD CULTURE GROWTH -- -- No growth to date No growth to date QUANT URINE CULTURE GROWTH -- No significant growth -- -- Assessment and Plan IMPRESSION : Principal Problem: Sepsis (HCC) Active Problems: Dyslipidemia, goal LDL below 130 Obstructive sleep apnea DICK (acute kidney injury) (HCC) Cavitary lesion of lung MRSA bacteremia Anemia Lytic bone lesion of femur Acute deep vein thrombosis (DVT) of right lower extremity (HCC) Prostate abscess Endocarditis of mitral valve Family history of lung cancer Resolved Problems: * No resolved hospital problems. * DIFFERENTIAL AND PLAN: Sepsis, suspected sources include thrombus of the right lower extremity, right femoral osteomyelitis, cardiac vegetation, respiratory from cavitary lesion, possible abscess between the prostate and rectum, urinary MRSA bacteremia - Continue inpatient with telemetry today - Continue vancomycin per pharmacy - Outside hospital blood cultures growing MRSA - Infectious disease consult, recommendations appreciated Continue Vancomycin per pharmacy Discontinued Zosyn 12/21 Bacterial/fungal/AFB culture of distal femur/other tissue obtained Repeat blood cultures every 24-48 hours if most recent become positive - Blood cultures 4/2 with NGTD - Tissue cultures /2 with many GPCs - A.m. labs: CBC, BMP, Mag, phos Possible distal femoral osteomyelitis versus probable septic arthritis as indicated on MRI from 12/11/2023, ? Lytic lesion Patient had been following with Dr. Sheridan as neoplasm not entirely excluded and biopsy may be required for definitive diagnosis Continue with sepsis treatment as above Orthopedic consult, recommendations appreciated S/P biopsy right femur lesion 12/22/23 NWB RLE Fluid/gas collection between the prostate and rectum, Outside facility discuss with our interventional radiology team who felt that the collection was too small to be drained They also discussed with their general surgical team who also agreed that the fluid was too small to be drained and recommended to continue treatment with just antibiotics Low threshold to reimage should clinical presentation decline Urology consulted, appreciate recs No acute urologic intervention Imaging concerning for prostatic abscess If concern for abscess persists, recommend colorectal surgery consult Colorectal surgery consulted, awaiting recs Cardiac vegetation, 0.5 cm x 0.3 cm mobile echodensity in the left atrial aspect of the P1 scallop of the posterior mitral valve leaflet In setting of MRSA bacteremia Follow up recommendations from Infectious Disease and continue broad-spectrum antibiotic coverage for sepsis as above Anemia Most likely of chronic disease in with acute sepsis transfuse to maintain hemoglobin equal to or greater than 7.0 Type and screen obtain last on 12/21/2023 Transfusions 1U PRBC on 12/21 Daily CBC DICK Patient presented to outside facility with a creatinine of 2.19 1.5 today 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, avoid hypotension, dose all medications based on creatinine clearance Monitor I's/O's every shift RLE Occlusive DVT Continue heparin infusion Pulmonary cavitary lesion Unclear etiology, risk factors for infection and malignancy Low threshold to add on mycoplasma testing should Respiratory symptoms develop Further evaluation based on additional clinical findings may need biopsy for confirmation our patient has other clinical considerations to be treated prior to this Thoracic medicine consulted, appreciate recs Due to location of the lesions, not amenable to biopsy via bronchoscopy at this time Continue abx per ID Pulmonary hygiene: IS, Flutter, HOB > 30 degrees all times, aspiration precautions, OOB to ambulate when able Follow-up OP with Pulmonary medicine Chest CT in 4-6 weeks for re-assessment PHARMACOLOGIC VTE PROPHYLAXIS: hEParin CODE STATUS: Full Code EXPECTED DISCHARGE DATE: No information available I spent a total of 45 minutes coordinating, documenting, and providing care for this patient excluding time spent in the performance of separately billed services. Associated attestation - Ed Melissa MD - 2023 5:18 PM EDT I have reviewed the advanced practitioner's documentation on the date of service referenced in note, and I agree with, and take responsibility for the plan of care. I spent a total of 50 minutes coordinating, documenting, and providing care for this patient excluding time spent in the performance of separately billed services or time spent by another provider/QHP. * Linda Ybarra, [facility] - 12/22/2023 2:37 PM EDT PHARMACY PHARMACOKINETIC CONSULT [address] [address] Name: Rogelio Barrera [place] [facility] [place] H678/A Date: 12/22/2023 Time: 2:37 PM Requesting Service: Med K Bacteria being treated: MRSA Source of infection: Blood Medication(s) being managed: Vancomycin Pharmacokinetic calculations will be performed without utilizing Cartesian software due to meeting exclusion criteria (MENA Stage 2 or 3 DICK, or receiving renal replacement therapy [iHD, CRRT, PD]). Lab information: Lab Results Component Value Date/Time WBC 13.85 (H) 12/22/2023 05:52 AM WBC 14.95 (H) 12/21/2023 10:46 PM WBC 19.98 (H) 12/16/2023 04:38 PM WBC 7.11 07/09/2023 01:15 PM WBC 5.3 03/22/1998 12:43 PM WBC 5.6 06/01/1996 04:00 PM Lab Results Component Value Date/Time BUN 12 12/22/2023 05:52 AM BUN 13 12/21/2023 10:46 PM BUN 40 (H) 12/16/2023 04:38 PM BUN 18 07/09/2023 01:15 PM BUN 14 08/23/2019 09:47 AM BUN 23 (H) 08/03/2017 10:46 AM BUN 14 04/21/2014 10:07 AM BUN 20 01/07/2012 09:05 AM BUN 19 12/31/2010 10:15 AM BUN 16 06/01/1996 04:00 PM Lab Results Component Value Date/Time CREAT 1.4 (H) 12/22/2023 05:52 AM CREAT 1.3 (H) 12/21/2023 10:46 PM CREAT 1.9 (H) 12/16/2023 04:38 PM CREAT 1.0 07/09/2023 01:15 PM CREAT 1.01 11/10/2021 12:00 AM CREAT 1.00 08/28/2020 12:00 AM CREAT 1.1 08/23/2019 09:47 AM CREAT 1.07 02/27/2019 12:00 AM CREAT 1.0 08/03/2017 10:46 AM CREAT 0.9 04/21/2014 10:07 AM CREAT 0.9 01/07/2012 09:05 AM CREAT 0.9 12/31/2010 10:15 AM CREAT 0.9 06/01/1996 04:00 PM ANTIMICROBIALS GIVEN (last 28 hours) Date/Time Action Medication Dose Rate 12/22/23 0633 New Bag Piperacillin-Tazobactam (Zosyn) 4.5 g in 100 mL NSS ivpb (FOUR hour infusion) 4.5 g 27.5 mL/hr 12/21/23 2322 New Bag Piperacillin-Tazobactam (Zosyn) 4.5 g in 100 mL NSS ivpb (FOUR hour infusion) 4.5 g 27.5 mL/hr Wt Readings from Last 1 Encounters: 12/22/23 87.5 kg (193 lb) Dosing and levels to date: Lab Results Component Value Date/Time VANCORANDOM 13.4 12/22/2023 11:03 AM VANCORANDOM 29.6 12/21/2023 10:46 PM Date Dose Admin Time Level (mcg/mL) Collected Time Notes/Comment 12/17-12/18 1000 mg q12 12/18-12/19 1250 mg q12h 12/19-12/20 1500 mg q12h 14.9 (trough) 12/21 1250 mg x1 13.4 (random) Impression: Patient is a 57 year old male to resume Vancomycin therapy, doses documented above (12/17-12/20) received at [facility]. Plan/Recommendations: The patient's level was drawn random The level result of 13.4 mcg/mL is below, the goal range of 15-20 mcg/mL. Administer one time dose of 1250 mg IV Vancomycin. Obtain random level with AM labs tomorrow and reassess renal function. Pharmacy will continue to follow and dose as appropriate by renal function, culture results, infectious disease input, and overall clinical status. * Sebas Sheridan MD - 12/22/2023 1:43 PM EDT Orthopedics I continued to recommend a biopsy of the distal femur. Unfortunately, the operating room lacks sufficient staff to schedule the patient's operative procedure in this moment. I hope to continue to work with the operating room administration, explaining the medical importance of the biopsy. In the lokesh ntime, I ask that the patient remain NPO in hopes that sufficient OR staff will become available asthe day progresses. Jalen Sheridan * Sia Peres PA-C - 12/22/2023 10:14 AM EDT Images from the original note were not included. [facility] H678/A INTERVAL HISTORY: Patient seen and examined in bed this morning. He is doing well. He denies BLANCHARD, dizziness, chest pain. He admits to CASTELLANOS however has not been up much therefore denies SOB. He denies abdominal pain, N/V. He is urinating without difficulty - denies melena and hematochezia. He endorses loose BMs lately with abx however not diarrhea. No blood or dark stickiness noted. Patient states that his recent CT and MRI is the first he's ever had Objective Physical Exam Most Recent Vital Signs: BP: 114 mmHg/57 mmHg (12/22/23954) Pulse: 72 (12/22/23954) Temp: 37.06 C (12/22/23954) Temp Summary: Temp Min: 37.1 C (98.7 F) Max: 38.4 C (101.2 F) SpO2: 97 % (12/22/23954) O2 flow rate: Supplemental O2 Delivery: Room Air, None (12/22/23954) Constitutional: No Apparent distress HEENT: normocephalic, atraumatic; no masses, tenderness, or adenopathy Eyes: PERRLA, sclera and conjunctiva normal Neck: supple, normal range of motion CV: Normal Rate and Normal Rhythm, no murmur, gallops or rub Chest: normal respiratory effort, lungs clear to auscultation Abdomen: normal: soft, bowel sounds normal, no masses, tenderness or organomegaly Musculoskeletal: (-) negative Extremities: Right leg with 2+ pitting edema from the foot to mid thigh, distal neurovascularly intact; left leg without edema also distal neurovascularly intact. No cyanosis Skin: warm, dry, Neuro: alert, oriented to person, place, and time, normal mental status exam Psych: normal mood and affect, nonsuicidal, judgement normal, memory normal STUDIES: Encounter Orders Labs and other studies reviewed with pertinent findings noted below: Latest Reference Range & Units 12/22/23 00:06 12/22/23 05:52 12/22/23 07:40 PREPARE PACKED RED BLOOD CELLS Rpt Sodium 135 - 146 mmol/L 131 (L) Potassium 3.5 - 5.1 mmol/L 3.5 Chloride 98 - 107 mmol/L 97 (L) CO2 22 - 32 mmol/L 25 BUN 6 - 20 mg/dL 12 Creatinine 0.6 - 1.2 mg/dL 1.4 (H) Estimated Glomerular Filtration Rate >=60 mL/min 61 Anion Gap 7 - 15 mmol/L 9 Glucose 70 - 120 mg/dL 124 (H) Calcium 8.4 - 10.2 mg/dL 8.2 (L) INR 0.8 - 1.2 1.2 Prothrombin Time 11.6 - 15.2 seconds 15.2 Heparin, Unfractionated <0.10 IU/mL <0.10 CBC Rpt ! WBC 4.00 - 10.80 K/uL 13.85 (H) RBC 4.50 - 5.25 M/uL 2.52 HGB 14.0 - 16.8 g/dL 6.6 (L) HCT 40.0 - 48.4 % 20.7 (L) MCV 82.0 - 99.5 fL 82.1 MCH 27.0 - 34.0 pg 26.2 MCHC 32.0 - 36.0 g/dL 31.9 RDW 11.5 - 15.5 % 15.1 PLT 140 - 400 K/uL 590 (H) MPV 6.6 - 11.1 fL 8.9 URINALYSIS, REFLEX TO CULTURE (CUP ONLY) Rpt URINALYSIS, REFLEX TO CULTURE Rpt ! CULTURE, URINE, QUANTITATIVE Rpt MRSA PCR Result Negative Positive ! MRSA SCREEN, PCR Rpt ! Color, Urine Colorless, Light Yellow, Yellow, Dark Yellow Light Yellow Clarity, Urine Clear Slightly Cloudy ! Glucose, Urine Negative mg/dL Negative Bilirubin, Urine Negative Negative Ketone, Urine Negative mg/dL Negative Specific Hustler, Urine 1.003 - 1.030 1.011 Blood, Urine Negative Trace ! pH, Urine 5.0 - 7.5 Units 5.5 Protein, Urine Negative mg/dL 30 ! Urobilinogen, Urine Normal mg/dL Normal Nitrite, Urine Negative Negative Esterase, Urine Negative Moderate ! Bacteria, Urine 0 - 25 /HPF 0-25 WBC, Urine 0 - 2 /HPF 20-29 ! WBC Clumps, Urine None /HPF Present ! RBC, Urine 0 - 2 /HPF 3-5 ! Yeast, Urine None /HPF Present ! URINALYSIS, REFLEX TO CULTURE (NOT FOR NEUTROPENIC PATIENTS) Rpt ! (L): Data is abnormally low (H): Data is abnormally high !: Data is abnormal Rpt: View report in Results Review for more information Assessment and Plan IMPRESSION : Principal Problem: Sepsis (HCC) Active Problems: Dyslipidemia, goal LDL below 130 Obstructive sleep apnea DICK (acute kidney injury) (HCC) Cavitary lesion of lung MRSA bacteremia Anemia Lytic bone lesion of femur Resolved Problems: * No resolved hospital problems. * DIFFERENTIAL AND PLAN: Sepsis, suspected sources include thrombus of the right lower extremity, right femoral osteomyelitis, cardiac vegetation, Respiratory from cavitary lesion, possible abscess between the prostate and rectum, urinary MRSA bacteremia Continue inpatient with telemetry today Continue vancomycin per pharmacy and piperacillin tazobactam Outside hospital blood cultures growing MRSA ; we will continue Gram-negative coverage due to the suspicion of deep infection related to the possible abscess around the prostate/rectum with ?fistulization Infectious disease consult, recommendations appreciated A.m. labs: CBC, BMP, Mag, phos Blood cultures in process - prelim with NGTD Possible distal femoral osteomyelitis versus probable septic arthritis as indicated on MRI from 12/11/2023, ? Lytic lesion patient had been following with Dr. Sheridan as neoplasm not entirely excluded and biopsy may be required for definitive diagnosis Continue with sepsis treatment as above Orthopedic consult, recommendations appreciated NPO for OR today, 12/22/23 NWB RLE Fluid/gas collection between the prostate and rectum, Outside facility discuss with our interventional radiology team who felt that the collection was too small to be drained They also discussed with their general surgical team who also agreed that the fluid was too small to be drained and recommended to continue treatment with just antibiotics Low threshold to reimage should clinical presentation decline Curbsided urology to see if they have anything to offer. Yinka Agustin asked for official consult jaqui placed for now. He will get back to provider if its needed or not Cardiac vegetation, 0.5 cm x 0.3 cm mobile echodensity in the left atrial aspect of the P1 scallop of the posterior mitral valve leaflet In setting of MRSA bacteremia Follow up recommendations from Infectious Disease and continue broad-spectrum antibiotic coverage for sepsis as above Consider reaching out to cardiac surgery in the morning for possible AngioVac removal of vegetationhowever likely will not be intervention Anemia Most likely of chronic disease in with acute sepsis transfuse to maintain hemoglobin equal to or greater than 7.0 Type and screen obtain last on 12/21/2023 Transfusions 1U PRBC on 12/21 Daily CBC DICK Patient presented to outside facility with a creatinine of 2.19 1.4 today 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 Continue treatment for infection PHARMACOLOGIC VTE PROPHYLAXIS: hEParin CODE STATUS: Full Code EXPECTED DISCHARGE DATE: No information available Associated attestation - Ed Melissa MD - 12/22/2023 3:26 PM EDT I have reviewed the advanced practitioner's documentation on the date of service referenced in note, and I agree with, and take responsibility for the plan of care. I spent a total of 55 minutes coordinating, documenting, and providing care for this patient excluding time spent in the performance of separately billed services or time spent by another provider/QHP. * Tyler Carranza, [facility] - 12/22/2023 1:15 AM EDT PHARMACY PHARMACOKINETIC CONSULT [address] [address] Name: Rogelio Barrera [place] [facility] [place] H678/A Date: 12/22/2023 Time: 1:15 AM Requesting service: Med K Bacteria being treated: MRSA Source of infection: Bacteremia Medication(s) being managed: Vancomycin Pharmacokinetic calculations will be performed without utilizing Cartesian software due to meeting exclusion criteria (MENA Stage 2 or 3 DICK, or receiving renal replacement therapy [iHD, CRRT, PD]). Lab information: Lab Results Component Value Date/Time WBC 14.95 (H) 12/21/2023 10:46 PM WBC 19.98 (H) 12/16/2023 04:38 PM WBC 7.11 07/09/2023 01:15 PM WBC 5.3 03/22/1998 12:43 PM WBC 5.6 06/01/1996 04:00 PM Lab Results Component Value Date/Time BUN 13 12/21/2023 10:46 PM BUN 40 (H) 12/16/2023 04:38 PM BUN 18 07/09/2023 01:15 PM BUN 14 08/23/2019 09:47 AM BUN 23 (H) 08/03/2017 10:46 AM BUN 14 04/21/2014 10:07 AM BUN 20 01/07/2012 09:05 AM BUN 19 12/31/2010 10:15 AM BUN 16 06/01/1996 04:00 PM Lab Results Component Value Date/Time CREAT 1.3 (H) 12/21/2023 10:46 PM CREAT 1.9 (H) 12/16/2023 04:38 PM CREAT 1.0 07/09/2023 01:15 PM CREAT 1.01 11/10/2021 12:00 AM CREAT 1.00 08/28/2020 12:00 AM CREAT 1.1 08/23/2019 09:47 AM CREAT 1.07 02/27/2019 12:00 AM CREAT 1.0 08/03/2017 10:46 AM CREAT 0.9 04/21/2014 10:07 AM CREAT 0.9 01/07/2012 09:05 AM CREAT 0.9 12/31/2010 10:15 AM CREAT 0.9 06/01/1996 04:00 PM ANTIMICROBIALS GIVEN (last 28 hours) Date/Time Action Medication Dose Rate 12/21/23 2329 New Bag Piperacillin-Tazobactam (Zosyn) 4.5 g in 100 mL NSS ivpb (FOUR hour infusion) 4.5 g 27.5 mL/hr Wt Readings from Last 1 Encounters: 12/21/23 88.5 kg (195 lb) Vancomycin dosing weight: use actual body weight. For patients who are >140% of their ideal bodyweight AND >100kg, use obesity dosing parameters. 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 but unknown last dose per provider. He appears to have recent DICK and serum creatinine was elevated (1.9 on 12/16/23 and down to 1.3 on 12/21/23). Ordered a random vancomycin level on admission and was found to be elevated at 29.6 on 12/20 2245. Assessment and Plan: The patient's level was drawn on time. The level result of 29.6 mcg/mL is above the goal range of 15-20 mcg/mL. Obtain another level in 12 hours after previous one and if level < 20 mcg/ml give a maintenance dose. Also ordered a BMP at same time as vancomycin level to review Scr and renal function. If renal function stable review dosing in [employer] for potential regimen. Pharmacy will continue to follow and dose as appropriate by renal function, culture results, infectious disease input, and overall clinical status. Contact the Pharmacy at extension [phone] if there are any questions. documented in this encounter H&P Notes * Oscar Conklin MD - 12/31/2023 2:19 PM EDT PRE-SEDATION ASSESSMENT PRE-SEDATION ASSESSMENT: Tunneled Cvc Placement Level of sedation planned: Moderate Patient's allergies reviewed: Yes H&P Review / Interval Note Documentation: I have reviewed the H&P previously performed, examined the patient today, and there are no new findings. Difficulty with sedation / anesthesia: No Sleep apnea: Yes History of snoring: Yes History of difficult intubation: No Decreased ROM neck flexion/extension: No Tracheal deviation: No Decreased ability to open mouth / TMJ: No Loose teeth / dentures / partial: No Congenital deformities / abnormalities: No Dysphagia: No Mallampati Classification: II - soft palate, uvula, fauces visible Chest: Clear Heart: Regular Rhythm Adequate Vascular Access: Yes ASA Risk Stratification (Select One): ASA 3 - Severe systemic disease, definite functional limitations The patient was identified and the procedure verified: Yes The patient was reevaluated immediately prior to the sedation: 12/31/2023 2:20 PM * Edy Quintero MD - 12/25/2023 6:23 AM EDT HISTORY & PHYSICAL INTERVAL NOTE [address] [place] [address] History and Physical Update: Name: Rogelio Barrera Location: [facility] [place] H678/A Date: 12/25/2023 Time: 6:23 AM DATE OF HISTORY AND PHYSICAL: 12/22/2023 BP: 159 mmHg/81 mmHg (12/25/23220) Pulse: 104 (12/25/23220) Temp: 37.22 C (12/25/23220) Temp Summary: Temp Min: 35.4 C (95.7 F) Max: 37.5 C (99.5 F) SpO2: 98 % (12/25/23220) O2 flow rate: 0 L/MIN (12/24/231936) Supplemental O2 Delivery: Room Air, None (12/25/23499) Does patient take a beta puja? No Did patient stop anticoagulants? Yes Heart Exam: regular rate and rhythm Lung Exam: clear to auscultation bilaterally Other Pertinent Physical Exam: none I have reviewed the H&P previously performed and examined the patient today. There are no new findings noted. * Montrell Carmen PA-C - 12/21/2023 9:44 PM EDT HISTORY AND PHYSICAL EXAMINATION - Hospital Medicine [address] [address] Name: Rogelio Barrera Location: [facility] [place] H678/A Date: 12/21/2023 Time: 9:45 PM Hospital Day: # 1 PRESENTING PROBLEM: MRSA bacteremia HPI: Rogelio Barrera is a 57 year old male with a significant medical history of dyslipidemia, degenerative disc disease, hypertension, OFELIA, who is being admitted as a direct admission from [facility]. Patient was admitted to their facility on 12/17/2023 with encephalopathy after being found down at home by family member. Patient was diagnosed with sepsis and started on broad- spectrum antibiotics later found to have MRSA bacteremia. Diagnostic testing at their facility also found a cavitary lung lesion, gas/fluid collection lead to in the prostate in rectum, a small cardiac vegetation on KIERSTEN, he was evaluated by their interventional radiologist in his surgery team for possible drainage of the fluid gas collection however both services at their facility felt that the collection was too small to be drained and recommended to treat with only antibiotics. He was also found to have a right lower extremity DVT and was started on a heparin infusion. Patient is being transferred to our facility for multiple specialties including is regular orthopedic surgeon Dr. Sheridan, infectious Disease, possible cardiac surgery. Patient was seen in his room shortly after presentation indicating that he was having mild pain in his right lower extremity, pain increases with attempts to move and with palpation. Other than the patient feels like he is much improved from his initial arrival at [facility]. Denying: Chest Pain, Dyspnea, Fever/Chills, N/V/D, H/A, Weakness, Numbness, Tingling, Lightheadedness, Dizziness, Blurred vision. Per chart review patient was seeing Dr. Sheridan for ongoing right leg pain with recent MRI on 12/11/2023 demonstrating signal abnormalities of the right distal femoral diaphysis extending to the 5th emesis with cortical disruption in soft tissue mass/enhancement. 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 ALLERGIES: Patient has no known allergies. ROS: As per HPI, all other systems reviewed and negative PHYSICAL EXAMINATION: Most Recent Vital Signs: BP: 114 mmHg/50 mmHg (12/21/232143) Pulse: 83 (12/21/232143) Temp: 37.83 C (12/21/232143) Temp Summary: Temp Min: 37.8 C (100.1 F) Max: 37.8 C (100.1 F) SpO2: 95 % (12/21/232143) O2 flow rate: Supplemental O2 Delivery: Room Air, None (12/21/232143) Constitutional: No Apparent distress HEENT: normocephalic, atraumatic; no masses, tenderness, or adenopathy Eyes: PERRLA, sclera and conjunctiva normal Neck: supple, normal range of motion CV: Normal Rate and Normal Rhythm, no murmur, gallops or rub Chest: normal respiratory effort, lungs clear to auscultation Abdomen: normal: soft, bowel sounds normal, no masses, tenderness or organomegaly Musculoskeletal: (-) negative Extremities: Right leg with one to 2+ pitting edema from the foot to mid thigh, distal neurovascularly intact; left leg without edema also distal neurovascularly intact. Range of motion not tested onthe right side due to increased pain no clubbing, cyanosis, or edema, otherwise grossly normal, warm, and dry Skin: warm, dry, intact: Neuro: alert, oriented to person, place, and time, normal mental status exam Psych: normal mood and affect, nonsuicidal, judgement normal, memory normal LABS: Labs reviewed as indicated below: Latest Reference Range & Units 12/21/23 22:46 TYPE AND SCREEN Rpt Temperature C 37.0 pH, Venous 7.320 - 7.430 units 7.460 (H) pCO2, Venous 40.0 - 60.0 mmHg 37.9 (L) pO2, Venous 25.0 - 50.0 mmHg 48.0 O2 Content, Venous 7.0 - 18.0 %vol 7.0 Oxyhemoglobin, Venous 40.0 - 85.0 % total Hgb 81.8 Base Excess, Venous -2.0 - 2.0 mmol/L 3.0 (H) Carboxyhemoglobin, Whole Blood <=1.5 % total Hgb 2.0 (H) Methemoglobin, Whole Blood <=1.5 % total Hgb 0.7 Reduced Hemoglobin, Venous % total Hgb 15.5 Lactate 0.4 - 2.0 mmol/L 1.0 Bicarbonate, Whole Blood 23.0 - 31.0 mmol/L 26.6 INR 0.8 - 1.2 1.2 Prothrombin Time 11.6 - 15.2 seconds 15.0 Heparin, Unfractionated <0.10 IU/mL <0.10 aPTT 21 - 38 seconds 41 (H) CBC Rpt ! WBC 4.00 - 10.80 K/uL 14.95 (H) RBC 4.50 - 5.25 M/uL 2.58 HGB 14.0 - 16.8 g/dL 14.0 - 16.8 g/dL 7.0 (L) 6.1 (L) HCT 40.0 - 48.4 % 21.2 (L) MCV 82.0 - 99.5 fL 82.2 MCH 27.0 - 34.0 pg 27.1 MCHC 32.0 - 36.0 g/dL 33.0 RDW 11.5 - 15.5 % 15.1 PLT 140 - 400 K/uL 643 (H) MPV 6.6 - 11.1 fL 8.9 CBC WITH WBC DIFFERENTIAL Rpt ! Absolute Neutrophils 1.80 - 7.70 K/uL 11.20 (H) Absolute Lymphocytes 1.00 - 4.80 K/ul 1.85 Absolute Monocytes 0.00 - 1.10 K/uL 1.08 Absolute Eosinophils 0.00 - 0.70 K/uL 0.34 Absolute Basophils 0.00 - 0.20 K/uL 0.06 CULTURE, BLOOD Rpt (H): Data is abnormally high (L): Data is abnormally low !: Data is abnormal Rpt: View report in Results Review for more information EKG: Reviewed no new IMAGING: Ultrasound right lower extremity Impression: Extensive occlusive DVT throughout the right lower extremity CT chest without contrast Impression There is a 2.8 cm cavitary lesion of the base of the left lung with a rim measuring 0.9 cm. This isconcerning for cavitary malignancy, less likely cavitary pneumonia Intraseptal thickening could relate to atelectasis and/or pulmonary edema Minimal atherosclerotic disease CT abdomen/pelvis without contrast Impression There is an abnormal gas and fluid collection located between the prostate gland in the rectum measuring approximately 4.1 by 2.1 cm. There was also abnormal thickening within the right pupil rectus sling with a possible small tubular tract extending to the right perianal location. Therefore, the abnormal gas and fluid collection located between the prostate gland in the rectum may represent supra laboratory extension of the right-sided perianal fistula abscess formation. Clinical correlation recommended to exclude the possibility of Hydrogel placement in the setting of prior prostate radiation therapy which could also account for this abnormal gas and fluid collection posterior to the prostate gland Mild bilateral perinephric edema. This may be chronic. Recommend correlation with urinalysis to exclude the possibility of pyelonephritis. Distended gallbladder. No gallbladder wall thickening. Bilateral renal hypodense lesions. These are technically indeterminate on this study but favor cysts. Follow-up nonemergent renal ultrasound recommended for confirmation. A 2.4 cm thick walled cavitary focus within the base of the left lower lobe. This could represent acavitary pneumonia. However, three-month chest CT follow- up recommended to ensure resolution CT head Impression No acute intracranial findings. Exam mildly compromised by motion artifact CT cervical spine Impression: There is no evidence of fracture or subluxation involving the cervical spine CXR Elevated right hemidiaphragm Borderline cardiomegaly Transesophageal echocardiogram There is a 0.5 cm x 0.3 cm mobile echodensity in the left atrial aspect of the P1 scallop of the posterior mitral valve leaflet consistent with the appearance to a small vegetation IMPRESSION and PLAN: Principal Problem: Sepsis (HCC) (POA: Yes) Active Problems: Dyslipidemia, goal LDL below 130 (POA: Yes) Obstructive sleep apnea (POA: Yes) DICK (acute kidney injury) (HCC) (POA: Yes) Cavitary lesion of lung (POA: Yes) MRSA bacteremia (POA: Yes) Anemia (POA: Yes) Resolved Problems: * No resolved hospital problems. * POA = Present On Admission PROBLEM BASED ASSESSMENT WITH DIFFERENTIAL: Sepsis, suspected sources include thrombus of the right lower extremity, right femoral osteomyelitis, cardiac vegetation, Respiratory from cavitary lesion, possible abscess between the prostate and rectum MRSA bacteremia Continue inpatient with telemetry today Continue vancomycin per pharmacy and piperacillin tazobactam Outside hospital blood cultures growing MRSA ; we will continue Gram-negative coverage due to the suspicion of deep infection related to the possible abscess around the prostate/rectum with ?fistulization Infectious disease consult, recommendations appreciated A.m. labs: CBC, BMP, Mag, phos Possible distal femoral osteomyelitis versus probable septic arthritis as indicated on MRI from 12/11/2023, ? Lytic lesion patient had been following with Dr. Sheridan as neoplasm not entirely excluded and biopsy may be required for definitive diagnosis Continue with sepsis treatment as above Orthopedic consult, recommendations appreciated Plan for OR 12/22/23 NWB RLE We will make patient NPO except medications at 2400 hours Fluid/gas collection between the prostate and rectum, Outside facility discuss with our interventional radiology team who felt that the collection was too small to be drained They also discussed with their general surgical team who also agreed that the fluid was too small to be drained and recommended to continue treatment with just antibiotics Low threshold to reimage should clinical presentation decline Cardiac vegetation, 0.5 cm x 0.3 cm mobile echodensity in the left atrial aspect of the P1 scallop of the posterior mitral valve leaflet In setting of MRSA bacteremia Follow up recommendations from Infectious Disease and continue broad-spectrum antibiotic coverage for sepsis as above Consider cardiac surgery evaluation in the morning for possible AngioVac removal of vegetation Anemia Most likely of chronic disease in with acute sepsis Hemoglobin 7.0 on admission here we will transfuse to maintain hemoglobin equal to or greater than 7.0 Type and screen obtain last on 12/21/2023 DICK Patient presented to outside facility with a creatinine of 2.19 1.3 today 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, avoid hypotension, dose all medications based on creatinine clearance Monitor I's/O's every shift RLE Occlusive DVT Continue heparin infusion Pulmonary cavitary lesion, suspicious for malignancy related lesion Low threshold to add on mycoplasma testing should Respiratory symptoms develop Further evaluation based on additional clinical findings may need biopsy for confirmation our patient has other clinical considerations to be treated prior to this Nutrition Section Diet: NPO x meds DVT PPx: Heparin infusion Anticipated Date of Discharge: 2 days or more Primary Contact: patient CODE STATUS ON ADMISSION: Full Code This patient was discussed with Dr. Cancino the time of admission. I spent a total of 80 minutes coordinating, documenting, and providing care for this patient excluding time spent in the performance of separately billed services or time spent by another provider/QHP. Associated attestation - Bill Davis MD - 12/21/2023 11:55 PM EDT I have reviewed the advanced practitioner's documentation on the date of service referenced in note, and I agree with, and take responsibility for the plan of care. I spent a total of 70 minutes coordinating, documenting, and providing care for this patient excluding time spent in the performance of separately billed services or time spent by another provider/QHP. 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 Patient identity confirmed: Verbally with patient and arm band Verbal confirmation: MRN, name and date of Written consent obtained: Yes Consent given by: Patient Understanding of procedure being performed: Yes Understanding of procedure matches verbalized consent: Yes Procedure consent matches procedure scheduled: Yes Allergies reviewed: Yes Site marked: yes Verify correct position: Yes Radiology Studies available/reviewed: yes Relevant Lab Results available/reviewed: yes Required items available: yes Other healthcare professional(s) verbalize(s) agreement with time out: Yes Name(s): see timeout Time out: Immediately prior to the procedure a time out was completed Procedure Detail: Sterility Preparation: mask worn, sterile gloves worn, cap worn, sterile sheet used, sterile gown worn and full body drape Provider Hand Hygiene: alcohol-based hand rub Placement conditions: Elective Patient Position: Supine Prep: Chlorhexidine Local Anesthetic Used: Yes Catheter Type: Tunneled CVC Tunneled CVC Laterality: Right Tunneled CVC Site: Chest Tunneled CVC Vessel: Internal Jugular Other: Bard Powerline Polyurethane Catheter with SureCuff Catheter size: 5 fr Catheter Total Length (cm): 25 Catheter Internal Length (cm): 25 Catheter External Length (cm): 0 Lot Number: [id number] EXP: 2028-04-20 Number of Lumens: Single lumen Number of Needle Passes: 1 Placement: target vein identified, needle advanced into vein and blood aspirated and guidewire advanced into vein Radiologic Support with Sterile Technique: ultrasound guidance used and live fluoroscopy Sterile gel and probe cover used for ultrasound?: Yes Intravenous Verification: live fluoroscopy Outcomes/Complications: patient tolerated procedure well with no complications Estimated blood loss: minimal. Post Insertion: Post Insertion Details: all ports aspirated, all ports flushed easily, guidewire was removed, examined and appears intact, line was sutured in place and dressing was applied Site cleansed: Other (comment) (normal saline) Line secured with: Monafilament Suture Dressing applied: Gel Chlorhexidine Gluconate Tip Confirmation: Radiologic Tip Location: Line Ok to use and Other Location Other: RA * Matthew Chawla MD - 12/26/2023 7:50 PM EDTAssociated Order(s): EKG REASON FOR STUDY: PER ORDER FOR QT INT CONCLUSIONS: Normal sinus rhythm Incomplete right bundle branch block No previous ECGs available Ventricular Rate: 92 Atrial Rate: 92 CT Interval: 152 QRS Duration: 116 QT/QTc: 364/450 ms P-R-T [place]: 56 : 48 : 24 degrees documented in this encounter Consult Notes * Raf Blackburn RN - 12/30/2023 10:08 AM EDTAssociated Order(s): IV THERAPY CONSULT IP PICC consult noted. Pt's GFR has been below 30 so Tigertext sent to Dr. Emilie Davis of Nephrology for PICC placement clearance. Dr. Davis advises tunneled CVC rather than PICC. Tigertext sent to attending provider, Dr. Winston Tarango, to relay above information from Nephrology.Dr. Tarango to order IR tunneled CVC consult. * Renae Estevez, RN - 12/28/2023 2:00 PM EDT Wound / Ostomy Nurse Consult Note Recommendations: Continue on static pressure redistribution mattress Reposition q 2 hours Utilize moisture absorbant/moisture wicking pads Keep heels elevated off of bed and chair Utilize waffle cushion when OOB Limit sitting to 2 hours Consider nutrition consult R econsult as needed Right leg/wounds deferred to DR Read team Will sign off Wound Ostomy asked to see this 58 year old patient now s/p Saucerization / bone debridement as treatment for suspected infection of right distal femur for concerns of sacral coccyx skin breakdown Pt sitting in chair transfers to commode to allow this nurse assessment Skin intact without erythema Slowly increasing activity * Yolis Bonner OT - 12/27/2023 7:00 AM EDTAssociated Order(s): ADULT OCCUPATIONAL THERAPY CONSULT IP Occupational Therapy Rogelio Barrera [id number] [facility] [place] H[facility]/[place] 7:00 AM 12/27/2023 58 year old Occupational Therapy evaluation completed and patient is being followed for OT services. Patient isnow TTWB R LE. See ancillary section in EPIC. Yolis Bonner M.S., OTR/L Occupational Therapist [facility] * Bashir Pelaez DPT - 12/26/2023 7:05 AM EDTAssociated Order(s): ADULT PHYSICAL THERAPY CONSULT IP Rogelio Barrera 58 year old [id number] [facility] [place] H678/A Physical Therapy PT consult received. Pt currently on PT caseload. Please see ancillary section for updates, thank you. Bashir Pelaez, PT, DPT * Sandra Bhagat MD - 12/25/2023 5:41 PM EDTAssociated Order(s): NEPHROLOGY CONSULT IP Images from the original note were not included. CONSULT - Nephrology [facility] [place] [id number] Name: Rogelio Barrera Location: [facility] [place] H678/A Date: 12/25/2023 Time: 5:41 PM REQUESTING SERVICE: Hospital Medicine REASON FOR CONSULT: DICK HPI: 58 year old Male - Obese BMI 31, OFELIA on CPAP HTN on JESSE Hx of Rt knee pain , imaging showed lytic bone lesion OM vs malignancy Was planned for Bone Bx - Admitted to [facility] with encephalopathy, found to have sepsis with high grade fever Started on broad spectrum antibiotics, evaluation showed MRSA bacteremia Imaging showed distal femoral osteomyelitis with probable septic arthritis + Abscess bladder/colon + cavitary lung lesions KIERSTEN also showed IE - Shifted to [facility] [place] for continuity of care s/p Bone Bx that showed MRSA S/p Saucerization / bone debridement as treatment for suspected infection of right distal femur. today Upon evaluation - Patient seen post-Op, still sleepy Nurses mentioned he passed large amount of urine, had to change his bedding PAST MEDICAL HISTORY: Past Medical History: Diagnosis Date Allergic rhinitis BMI 35.0-35.9,adult DDD (degenerative disc disease), lumbosacral Dyslipidemia, goal LDL below 130 Encounter for hepatitis C screening test for low risk patient 11/10/2021 negative Essential hypertension with goal blood pressure less than 140/90 Family history of lung cancer Sister Obstructive sleep apnea 12/09/2018 Dr Bell PAST SURGICAL HISTORY: Past Surgical History: Procedure Laterality Date BONE BIOPSY, TROCAR/NEEDLE, DEEP Right 12/22/2023 BIOPSY BONE TROCAR OR NEEDLE DEEP performed by Sebas Sheridan MD at [facility] COLONOSCOPY W/ LESION REMOVAL, SNARE 03/04/2019 rectal polyp at 10 cm REMOVAL OF ADENOIDS, UNDER AGE 13 ALLERGIES: Patient has no known allergies. FAMILY HISTORY: Family History Problem Relation Age of Onset Cancer Mother panreatic Heart Disorder Father Hypertension Father Lung cancer Sister Cancer Grandmother (Maternal) stomach SOCIAL HISTORY: Social History Tobacco Use Smoking status: Never Smokeless tobacco: Never Vaping Use Vaping Use: Never used Substance Use Topics Alcohol use: No Drug use: No ROS: Could not be obtained PHYSICAL EXAMINATION: Vital Signs Last 24 Hours: Systolic BP: Most Recent Systolic BP Av.3 mmHg Min: 93 mmHg Max: 167 mmHg Temperature: Most Recent Temperature Av.7 C Min: 36.11 C Max: 37.5 C Pulse: Pulse Av.1 Min: 62 Max: 104 Respirations: Resp Av.6 Min: 12 Max: 24 SpO2: SpO2 Av.9 % Min: 94 % Max: 100 % Patient is semi-setting, sleeping at bed HEENT; No pallor conjunctiva or yellowish sclera, short obese neck Lung; decrease breath sounds bilaterally, mostly transmitted sounds Pericardium; RRR, normal S1, S2. No murmurs Abdomen; soft, non tender, not distended MSK; +1 edema on left, right thigh/knee dressing Neuro; upon evaluation he was sleeping, nurses mentioned delirium especially at night LABS: Latest Reference Range & Units 12/23/23 05:38 12/24/23 05:31 12/24/23 16:44 12/25/23 06:55 Sodium 135 - 146 mmol/L 133 (L) 129 (L) 129 (L) Potassium 3.5 - 5.1 mmol/L 3.5 3.5 3.4 (L) Chloride 98 - 107 mmol/L 98 93 (L) 93 (L) CO2 22 - 32 mmol/L 23 24 24 BUN 6 - 20 mg/dL 12 13 16 Creatinine 0.6 - 1.2 mg/dL 1.5 (H) 2.0 (H) 2.5 (H) Estimated Glomerular Filtration Rate >=60 mL/min 55 (L) 39 (L) 29 (L) Anion Gap 7 - 15 mmol/L 12 12 12 Glucose 70 - 120 mg/dL 176 (H) 168 (H) 134 (H) Calcium 8.4 - 10.2 mg/dL 8.0 (L) 7.9 (L) 8.1 (L) Phosphorus 2.5 - 4.8 mg/dL 2.8 3.2 3.1 WBC 4.00 - 10.80 K/uL 13.58 (H) 12.35 (H) 13.07 (H) 12.41 (H) HGB 14.0 - 16.8 g/dL 7.4 (L) 6.6 (L) 8.5 (L) 8.2 (L) HCT 40.0 - 48.4 % 22.5 (L) 20.7 (L) 26.6 (L) 25.3 (L) PLT 140 - 400 K/uL 638 (H) 549 (H) 685 (H) 660 (H) Albumin 3.8 - 5.0 g/dL 2.5 (L) 2.6 (L) 2.5 (L) IMAGING: Reviewed CAP CT done in [facility] - Cavitary lung lesion - Gas/fluid connection between prostate/rectum extending to perianal - Mild bilateral perinephric edema, "Bilateral renal hypodense lesions. These are technically indeterminate on this study but favor cysts. " IMPRESSION: DICK in setting of disseminated MRSA bacteremia - Possibly originating from Rt distal femur with suspected malignancy - DICK is multifactorial; if retention is rule out then likely ischemic ATN/Infectious GN/Septic emboli - AIN from anti-microbial is possible but less likely (received Vanco/Pip/Tazo) Acid/Base; HCO3 24 Electrolyte; HypoNa, HypoK Uremia; Inappropriately normal BUN, encephalopathy is likely infectious Volume; Mostly Eu-Hyper BP; Stable ID; Monotherapy Vanco PLAN: - Send for urine studies (urinalysis with microscopy/Na/Cre/BUN/PCR) - Insure accurate output (consider Condom/Duffy) - Send for complements - Post voidal bladder scan, Duffy accordingly - DICK precautions (Strict I/O, Avoid nephrotoxic drugs, Renally adjusted dosing) - Bx would be considered later, however unlikely to pattern changer and repairer as treating underlying infection is the propriety Patient was seen and examined, Supervised with Dr Pressley No family members at time of encounter Discussed with primary team Sandra Bhagat MD Nephrology Fellow Associated attestation - Jose R Pressley MD - 12/26/2023 2:25 PM EDT I saw and evaluated the patient 12/26/2023. I have reviewed the trainee note and agree. 58-year-old man with obesity hypertension obstructive sleep apnea transferred from another hospitalfor management of septic arthritis MRSA bacteremia, also diagnosed with bladder: Abscess cavitary lung lesions and infective endocarditis. Course complicated with acute kidney injury. I reviewed outpatient orthopedic Oncology note from December 16 2023 when he was evaluated for rightdistal femoral lesion any whole body PET scan was recommended along with extensive workup for possible cancer. On December 25 2023 he underwent Orthopedic Surgery for suspected infection of right distal femur. I reviewed the operative report which mentions that after obtaining surgical pathology cultures the femoral bed was packed with tobramycin and vancomycin. His random vancomycin level have been stable between 13.4-29.6. Complement C4 was normal His urinalysis showed negative protein and trace blood protein creatinine ratio was 140 Review of his flow sheets there was no episodes of hypotension Transesophageal echocardiogram normal ejection fraction normal right ventricular ejection fraction mobile echodensity on the mitral valve no significant valvular abnormalities Renal ultrasound 12.4 cm kidneys normal echogenicity no hydronephrosis On exam he is chronically ill pale, heart and lungs normal abdomen is soft nontender right leg is in dressing with a drain and edematous. Impression: Acute kidney injury in the setting of MRSA bacteremia and multiple abscesses including osteomyelitis Bone lesion s/o debridement and packing with tobramycin and vancomycin Plan and recommendations Continue supportive care, broad-spectrum antibiotics maintain vanco levels therapeutic. Suspect his DICK is likely ATN. No indicationsFor dialysis. Maintain Duffy and monitor ins and outs. Daily labs. Consider low-dose IV fluids normal saline. 75 mL/hour close cardiopulmonary monitoring Jose R Pressley MD * Jami Thomas MD - 2023 4:38 PM EDTAssociated Order(s): COLORECTAL SURGERY CONSULT IP Images from the original note were not included. CONSULT - Colorectal Surgery [facility] [place] [address] Name: Rogelio Barrera Location: [place] [address]/A Date: 2023 Time: 4:38 PM REQUESTING SERVICE: medicine REASON FOR CONSULT: Rogelio Barrera [facility] is seen at the request of medicine in consultation for ". HISTORY OF PRESENT ILLNESS: Rogelio Barrera is a 57 year old y/o male with the history below who is being seen for evaluation of ""imaging findings concerning for prostatic abscess " Patient admitted 12/16 for AMS and encephalopathy and diagnosed with sepsis. Found to have MRSA bacteremia which patient is being treated for with vancomycin and cefazolin. Patient seen at bedside, endorses right knee pain but otherwise denies any rectal or pelvic pain, abdominal pain, bleeding, hematuria, fevers, chills. His primary complaint is with his right leg as he is s/p biopsy of his R femur with orthopedics on 12/22. Labs are remarkable for WBC 13(14). He did have a fever of 38.4 yesterday night. PMH: dyslipidemia, degenerative disc disease, hypertension, [facility] PROBLEM LIST: Principal Problem: Sepsis (HCC) (POA: Yes) Active Problems: Dyslipidemia, goal LDL below 130 (POA: Yes) Obstructive sleep apnea (POA: Yes) DICK (acute kidney injury) (HCC) (POA: Yes) Cavitary lesion of lung (POA: Yes) MRSA bacteremia (POA: Yes) Anemia (POA: Yes) Lytic bone lesion of femur (POA: Unknown) Acute deep vein thrombosis (DVT) of right lower extremity (HCC) (POA: Unknown) Prostate abscess (POA: Unknown) Endocarditis of mitral valve (POA: Unknown) Family history of lung cancer (POA: Unknown) POA = Present On Admission PAST MEDICAL HISTORY: Past Medical History: Diagnosis Date Allergic rhinitis BMI 35.0-35.9,adult DDD (degenerative disc disease), lumbosacral Dyslipidemia, goal LDL below 130 Encounter for hepatitis C screening test for low risk patient 11/10/2021 negative Essential hypertension with goal blood pressure less than 140/90 Family history of lung cancer Sister Obstructive sleep apnea 12/09/2018 Dr Bell PAST SURGICAL HISTORY: Past Surgical History: Procedure Laterality Date BONE BIOPSY, TROCAR/NEEDLE, DEEP Right 12/22/2023 BIOPSY BONE TROCAR OR NEEDLE DEEP performed by Sebas Sheridan MD at [facility] COLONOSCOPY W/ LESION REMOVAL, SNARE 03/04/2019 rectal polyp at 10 cm REMOVAL OF ADENOIDS, UNDER AGE 12 FAMILY HISTORY: Family History Problem Relation Age of Onset Cancer Mother panreatic Heart Disorder Father Hypertension Father Lung cancer Sister Cancer Grandmother (Maternal) stomach SOCIAL HISTORY: Social History Tobacco Use Smoking status: Never Smokeless tobacco: Never Vaping Use Vaping Use: Never used Substance Use Topics Alcohol use: No Drug use: No ALLERGIES: Patient has no known allergies. ROS: ROS negative unless otherwise noted in HPI. PHYSICAL EXAMINATION: Most Recent Vital Signs: BP: 125 mmHg/58 mmHg (12/23/23 1458) Pulse: 87 (12/23/23 1458) Temp: 37.06 C (12/23/23 145) Temp Summary: Temp Min: 36.7 C (98.1 F) Max: 38.4 C (101.1 F) SpO2: 94 % (12/23/23 145) O2 flow rate: 2 L/MIN (12/22/23 2100) Supplemental O2 Delivery: Room Air, None (12/23/231457) Vital Signs Over Last 24 Hours: Systolic BP: Most Recent Systolic BP Av.4 mmHg Min: 93 mmHg Max: 130 mmHg Temperature: Most Recent Temperature Av.3 C Min: 36.72 C Max: 38.39 C Pulse: Pulse Av.2 Min: 60 Max: 111 Respirations: Resp Av.8 Min: 12 Max: 18 SpO2: SpO2 Av.5 % Min: 91 % Max: 100 % Constitutional: no acute distress HEENT: normocephalic, atraumatic Eyes: sclera and conjunctiva normal CV: normal rate Chest: normal respiratory effort Abdomen: soft, nondistended Extremities: no clubbing, cyanosis, or edema, otherwise grossly normal, warm, and dry Skin: warm, dry Neuro: alert, oriented LABS: Labs reviewed IMAGING: No imaging results in the last [address] scan at [facility] 12/17/2023 IMPRESSION and PLAN: 57 y/o M with Pmhx as above CRS team consulted for imaging findings concerning for prostatic abscess. Patient seen at bedside, denies any pelvic or rectal pain, bleeding. On review of CT unable to appreciate a prostatic abscess that would require surgical intervention. Can consult IR to see if there is a window for drainage. No acute surgical interventions Surgical team to sign off. Patient seen and discussed with Dr. Ave Thomas MD - PGY2 General Surgery Resident [facility] * Adalberto Rodriguez, OT - 12/22/2023 3:02 PM EDTAssociated Order(s): ADULT OCCUPATIONAL THERAPY CONSULT IP GENERAL EVALUATION- Occupational Therapy [address] [address] Name: Rogelio Barrera Location[place] [facility] [place] H678/A Date: 12/22/2023 Time: 3:02 PM HPI: Per EPIC, "Rogelio Barrera is a 57 year old male with a significant medical history of dyslipidemia, degenerative disc disease, hypertension, OFELIA, who is being admitted as a direct admission from [facility]. Patient was admitted to their facility on 12/17/2023 with encephalopathy after being found down at home by family member. Patient was diagnosed with sepsis and started on broad-spectrumantibiotics later found to have MRSA bacteremia. Diagnostic testing at their facility also found a cavitary lung lesion, gas/fluid collection lead to in the prostate in rectum, a small cardiac vegetation on KIERSTEN, he was evaluated by their interventional radiologist in his surgery team for possible drainage of the fluid gas collection however both services at their facility felt that the collectionwas too small to be drained and recommended to treat with only antibiotics. He was also found to have a right lower extremity DVT and was started on a heparin infusion. Patient is being transferred to our facility for multiple specialties including is regular orthopedic surgeon Dr. Sheridan, infectious Disease, possible cardiac surgery. Patient was seen in his room shortly after presentation indicating that he was having mild pain in his right lower extremity, pain increases with attempts to move and with palpation. Other than the patient feels like he is much improved from his initial arrival at [facility]. Denying: Chest Pain, Dyspnea, Fever/Chills, N/V/D, H/A, Weakness, Numbness, Tingling, Lightheadedness, Dizziness, Blurred vision. Per chart review patient was seeing Dr. Sheridan for ongoing right leg pain with recent MRI on 12/11/2023 demonstrating signal abnormalities of the right distal femoral diaphysis extending to the 5th emesis with cortical disruption in soft tissue mass/enhancement. Plan at that time was for him to obtain a biopsy to help guide treatment" Patient Status: Inpatient Insurance: Payor: [facility] FAMILY Plan: [facility] FAMILY PLAN [place] Product Type: *No Product type* Patient Seen: at bedside, nursing cleared patient for therapy Patient Identified By: Name, ID Band and Date Diagnosis: sepsis (12/22/23 1501) Status of treatment: Evaluation completed (12/22/23 150) Orders: OT evaluation and treatment;OT OOB (12/22/23 150) Weight Bearing Status: Non-weight bearing;RLE (12/22/23 150) Precautions: Alarms;Falls;Safety (12/22/23 1501) Total Treatment Time: 15 (12/22/23 150) Past Medical History: Past Medical History: Diagnosis Date Allergic rhinitis BMI 35.0-35.9,adult DDD (degenerative disc disease), lumbosacral Dyslipidemia, goal LDL below 130 Encounter for hepatitis C screening test for low risk patient 11/10/2021 negative Essential hypertension with goal blood pressure less than 140/90 Obstructive sleep apnea 12/09/2018 Dr Bell Past Surgical History: Past Surgical History: Procedure Laterality Date COLONOSCOPY W/ LESION REMOVAL, SNARE 03/04/2019 rectal polyp at 10 cm REMOVAL OF ADENOIDS, UNDER AGE 13 Prior Level of Function Reported by: Patient (12/22/23 1501) Ambulation: Ambulatory with device (12/22/23 1501) Ambulatory Device: Rollator (12/22/23 1501) Grooming: Independent (12/22/23 1501) Bathing: Independent (12/22/23 1501) Dressing: Independent (12/22/23 1501) Feeding: Independent (12/22/23 1501) Toileting: Independent (12/22/23 1501) Meal Prep: Independent (12/22/23 1501) Homemaking: Independent (12/22/23 1501) Durable Medical Equipment at home: Rollator (12/22/23 1501) Observations Consciousness: Alert (12/22/23 1501) Orientation: Oriented times 4 (12/22/23 1501) Psychosocial: Patient can communicate basic needs;Patient can converse in a social setting (12/22/23 1501) Sitting posture: Forward head;Rounded shoulders (12/22/23 1501) Standing posture: Forward head;Rounded shoulders (12/22/23 1501) Safety awareness: The Patient verbalizes insight of current deficits.;The Patient demonstrates carryover of insight during functional tasks. (12/22/23 1501) Pain: Patient has complaints of RLE pain Current Functional Status: UE Strength/ROM: BUE are WFL and 4+/5 throughout Bed Mobility Supine-Sit: Supervision (Please comment) (12/22/23 1501) OT Transfers Sit-Stand: Supervision (Please comment) (12/22/23 1501) Stand-Sit: Supervision (Please comment) (12/22/23 1501) Bed-Chair: Supervision (Please comment) (12/22/23 1501) Functional Ambulation Assistive Device: Rolling walker (12/22/23 1501) Distance in feet:: 15 (12/22/23 1501) Level of Assistance: Supervision (Please Comment) (12/22/23 1501) Self Care Able to provide self care: Yes (12/22/23 1501) Balance Sit (Static): Fair (12/22/23 1501) Sit (Dynamic): Fair (12/22/23 1501) Stand (Static): Fair (12/22/23 1501) Stand (Dynamic): Fair (12/22/23 1501) Dressing Upper Body: Supervision (Please comment) (to don gown) (12/22/23 1501) Lower Body: Supervision (Please comment) (to don socks) (12/22/23 1501) Equipment Equipment used in Therapy: Rolling walker (12/22/23 1501) Patient and or Family Goal(s): None Alarm Status Patient positioned in: Chair (12/22/23 1501) With: Pressure pad alarm intact and functioning and call gtz in reach (12/22/23 1501) Following session patient seated OOB in chair with chair alarm activated and cord plugged into callbell system. Treatment Provided: Evaluation Low Complexity 15 minutes - 29695: Patient was cooperative during treatment session. Low complexity evaluation performed and ADL deficit and functional mobility deficitdeficits were identified that result in activity limitation. The patient does not have any comorbidities that affect occupational performance. There were no modifications necessary to complete the evaluation. Patient Education Education Topic: Role of OT;Plan of care goals (12/22/23 150) Review of Precautions: Safety;Fall (12/22/23 150) Method of Education: Verbalized to patient (12/22/23 150) Education Provided to: Patient (12/22/23 150) Response to Education: Receptive and agreeable to education (12/22/23 150) Barriers to learning: None (12/22/23 150) Preferred learning method: Combination (12/22/23 150) Method of Education: Verbal discussion and explanation provided to patient: verbalized understanding and or agreement of this information Assessment: Patient is a 57 year old male admitted on 12/21/23 being seen for sepsis. He was previously living at home and reports being independent for ADLs/mobility. On exam, patient was able to complete bed mobility unassisted. He was able to complete UB/LB dressing simulation tasks using robe/slipper socks with supervision only. Patient was able to ambulate in room using walker with close supervision due to minor unsteadiness, and was able to maintain NWB status. He would benefit from ongoingacute OT services to improve function. Please consider home with post-acute care services which mayinclude home health or outpatient therapy. The level of care will be determined in collaboration wit h the patient, family/caregiver and care team members. AM-PAC Help From Another Person Eating Meals: None (12/22/23 150) Help From Another Person Taking Care of Personal Grooming: None (12/22/23 150) Help From Another Person To Put On/Take Off Upper Body Clothing: A little (12/22/23 150) Help From Another Person To Put On/Take Off Lower Body Clothing: A little (12/22/23 150) Help From Another Person Toileting: A little (12/22/231500) Help From Another Person Bathing: A little (12/22/23 150) OT AM-PAC Score: 20 (12/22/23 150) OT AM-PAC t-Scale Score: 42.03 (12/22/23 150) HLM (Highest Level of Mobility) Goal: Level 4 move to chair/commode (12/21/23 5379) A portion of this AM-PAC assessment not scored based on functional assessment; rather clinical decision making was utilized based on current findings and/or prior level of function. Please refer to future AM-PAC calculations of functional ability as they become available. Deficits requiring O.T. treatment needs: ADL/self- care;Balance;Endurance;Functional mobility;IADL;Safety;Upper extremity strength;Weakness (12/22/23 1501) Goals: Increase Strength of BUE to 5/5 in all areas Demonstrate sitting Balance of Fair+ Demonstrate standing Balance of Fair+ Demonstrate self care at modified independence for all UB and LB tasks Demonstrate toileting with modified independence Demonstrate Bed Mobility with modified independence Demonstrate Transfers with modified independence Demonstrate Functional Ambulation with modified independence Treatment Plan: Accuracy with Precautions, Safety, Bed mobility training, Functional Ambulation, Transfer training, Coordination Tasks, Upper extremity strengthening, Balance activities, ADL training, and Endurance Goal Time Frame:8 visits Anticipated Frequency (on eval): 1 to 3 times per week (12/22/23 1501) * Symone Vera, PT - 12/22/2023 2:45 PM EDTAssociated Order(s): ADULT PHYSICAL THERAPY CONSULT IP GENERAL EVALUATION - Physical Therapy [address] [address] Name: Rogelio Barrera [place] [facility] [place] H678[place]A Date: 12/22/2023 Time: 5 Per Chart Review: Rogelio Barrera is a/an 57 year old male presenting with 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 Patient Status: Inpatient Insurance: Payor: [facility] FAMILY Plan: [facility] FAMILY PLAN [place] Product Type: *No Product type* Patient Seen: at bedside Patient Identified By: Name, ID Band and Date Diagnosis: sepsis (12/22/231444) Status of treatment: Evaluation completed (12/22/231444) Orders: PT evaluation and treatment;OOB (12/22/231444) Weight Bearing Status: RLE;Non-weight bearing (12/22/231444) Precautions: Alarms (12/22/231444) Total Treatment Time--free text: 15 (12/22/231444) Subjective: Consulted with RN prior to entering room. Patient received semi- reclined in bed. Patient agreeable to working with PT. Past Medical History: Past Medical History: Diagnosis Date Allergic rhinitis BMI 35.0-35.9,adult DDD (degenerative disc disease), lumbosacral Dyslipidemia, goal LDL below 130 Encounter for hepatitis C screening test for low risk patient 11/10/2021 negative Essential hypertension with goal blood pressure less than 140/90 Obstructive sleep apnea 12/09/2018 Dr Bell Past Surgical History: Past Surgical History: Procedure Laterality Date COLONOSCOPY W/ LESION REMOVAL, SNARE 03/04/2019 rectal polyp at 10 cm REMOVAL OF ADENOIDS, UNDER AGE 13 Social History/Disposition Lives with: Family (94 yo father) (12/22/231444) Assistance available: Yes (family outside home able to assist) (12/22/231444) Dwelling type: Multi-story home (1st floor living set-up available) (12/22/231444) Entry steps: (5-6) (12/22/231444) Inside steps: 10 - 15 (12/22/231444) Bedroom location: 2nd floor (12/22/231444) Bath location: 1st floor full bath (12/22/231444) Prior Level of Function Reported by: Patient (12/22/231444) Ambulation: Ambulatory without device (recently began using father's rollator prior to admission) (12/22/231444) Devices at home: Rollator (father has some equipment) (12/22/231444) Observations Consciousness: Alert (12/22/231444) Orientation: Oriented times 4 (12/22/231444) Psychosocial: Patient can communicate basic needs;Patient can converse in a social setting (12/22/231444) Other Findings: Yes (12/22/231444) Findings: Light touch sensation;Edema (12/22/231444) Light Touch Sensation Results: Intact;LLE;RLE (12/22/231444) Edema Results: RLE (lower leg and foot) (12/22/231444) Sitting Posture: Forward head;Rounded shoulders (12/22/231444) Standing Posture: Forward head;Rounded shoulders (12/22/231444) Pain: No complaints of pain Range of Motion Range of Motion: WFL, except (R limitations due to edema and pain) (12/22/231444) Strength Assessment Strength Assessment: WNL (R LE grossly 4-/5) (12/22/231444) P.T. Bed Mobility Supine-Sit: Supervision (12/22/231444) Sit-Supine: Supervision (12/22/231444) Transfers Sit-Stand: Supervision (12/22/231444) Stand-Sit: Supervision (12/22/231444) Ambulation: Distance ambulated (feet): 20 Assistive Device: Rolling walker Assist: Supervision Balance Sit (Static): Fair (12/22/231444) Sit (Dynamic): Fair (12/22/231444) Stand (Static): Fair (12/22/231444) Stand (Dynamic): Fair (12/22/231444) Patient and or Family Goal(s): to get well and to return home Patient Education Review of Precautions: Weight Bearing Status (12/22/231444) Safety Awareness: Patient verbalizes insight of current deficits;Patient demonstrates carryover of insight during functional tasks (12/22/231444) Preferred learning method: Combination (12/22/231444) Barriers to learning: None (12/22/231444) Method of Education: Verbalized to patient (12/22/231444) Topic of Education: Weight bearing restrictions, Goals/plan of care, and role of PT Method of Education: Verbal discussion and explanation provided to pt: verbalized understanding andor agreement of this information and demonstrated the exercise and or task Treatment Provided: Evaluation Low Complexity 15 minutes - 97500: Patient was cooperative, pleasant, and alert during treatment session. Low complexity evaluation performed with indication of no personal factors or comorbidities that impact plan of care. Patient presents with limitations in range of motion, strength, bed mobility, transfers, gait, elevations, balance, and endurance, which will impact plan of care. These limitations will be addressed by the goals set for this patient. Alarm Status Patient positioned in: Chair (12/22/231444) With: Pressure pad alarm intact and functioning and call gtz in reach (12/22/231444) Following session patient seated OOB in chair with chair alarm activated and cord plugged into callbell system. Treatment Status: Treatment at bedside (12/22/231444) Time Frame: 10 visits Assessment: Rogelio Barrera is a/an 57 year old male admitted to [facility] [place] with a diagnosis of sepsis. At baseline, patient is independent with mobility without an assistive device. Today, patient demonstrates good awareness of functional impairments and consistently adheres to NWB R LE status. Ambulates 20' with a RW and a hop-to gait. Patient's mobility is limited by decreased R LE strength, increased RLE edema, decreased balance, and decreased activity tolerance. Patient presents at a regression from functional baseline and will benefit from skilled therapy while in-house in order to address decreased functional mobility, activity tolerance and optimize function. Please consider home with post-acute care services which may include home health or outpatient therapy. The level of care will be determined in collaboration with the patient, family/caregiver and care team members. Deficits requiring P.T. treatment needs: Mobility;Balance;Weakness;Endurance;Range of motion;Lower extremity strength (12/22/231444) Goals: Demonstrate Bed Mobility: Sit to supine: independent Supine to sit:independent Demonstrate transfers with: Sit to stand: modified independent Stand to sit: modified independent Bed to chair: modified independent with least restrictive device Chair to bed: modified independent with least restrictive device Demonstrate ambulation: distance: 125 feet with assistive device: least restrictive device and level of assistance: modified independent Demonstrate Stair climbing (when appropriate): number of stairs: 6 with level of assistance: modified independent Increase range of motion: to WFL throughout RLE Increase Strength: to 5/5 BLE Increase Balance: good sitting / fair+ standing Treatment Plan: Bed mobility training, Transfer training, Gait training, Elevation training, ROM exercises: R LE, Strengthening exercises: R LE, and Balance activities AM PAC Score with Stairs: 18 A portion of this AM-PAC assessment not scored based on functional assessment; rather clinical decision making utilized based on current findings and/or prior level of function. Please refer to future AM-PAC calculations of functional ability as they become available. Symone Vera PT, DPT * Yinka Agustin MD - 12/22/2023 12:50 PM EDTAssociated Order(s): UROLOGY CONSULT IP CONSULT - [place] [facility] [place] [address] Name: Rogelio Barrera Location: [facility] [place] H678/A Date: 12/22/2023 Time: 12:50 PM HPI: Rogelio Barrera is a 57 year old male with history as below admitted for encephalopathy seen in consultation for imaging findings concerning for possible prostatic abscess. Patient has a complex problem list including left lower lobe cavitary lung lesion, RLE DVT, mitral valve vegetation on TTE, right femur mass, and MRSA bacteremia. His initial problem was RLE discomfort and he was following with Orthopedic team here at [facility], planning for biopsy before he was unresponsive last and taken to [facility]. CT abdomen/pelvis obtained with findings of ori-rectal/prostatic gas and fluid collection, concerning for abscess. No significant urologic history. He has never seen a urologist for any reason. He was evaluated by Dr. Turk at [facility] given the above imaging findings. Per his interpretation of the imaging, the air is not within the prostate but rather posterior to the prostate in the rectum/colon. I agree with this interpretation, gas does not appear to be in the prostate. Patient is asymptomatic from a urinary standpoint. He denies gross hematuria, dysuria, suprapubic/flank pain at baseline. Recent PSA 12/16/23 0.49. Per my review: febrile this afternoon at 1213, Tmax 38.4 C. Hemodynamically stable. WBC 13.85 Hgb 6.6 Cr 1.4 (baseline appears to be ~1.0) UA equivocal, yeast present. Culture in process. No imaging results in the last 72 hours Past Medical History: Diagnosis Date Allergic rhinitis [...] cm REMOVAL OF ADENOIDS, UNDER AGE 12 Family History Problem Relation Age of Onset [...] file Housing Stability: Not on file Current Facility-Administered Medications Medication Dose Route Frequency Provider Drug Level Check - Vancomycin Random Does Not Apply Once Timed Lab 2hrs Montrell Carmen PA-C Acetaminophen (Tylenol) tab 650 mg 650 mg Oral Q4H PRN Montrell Carmen PA-C Baclofen (Lioresal) tab 20 mg 20 mg Oral TID(AM/NOON/HS) Montrell Carmen PA-C ceFAZolin in dextrose (Ancef) ivpb 2 g 2 g IV Piggyback [employer] Specialist Jose Carlos Alvarez MD Chlorthalidone (Hygroton) tab 25 mg 25 mg Oral Daily(AM) Montrell Carmen PA-C hEParin 1000 UNIT/ML inj 1,100 Units 15 Units/kg (Adjusted) IV Push PRN Montrell Carmen PA-C hEParin 1000 UNIT/ML inj 2,200 Units 30 Units/kg (Adjusted) IV Push PRN Montrell Carmen PA-C hEParin 25,000 units in 250 mL (Xa-DVT/PE) infusion 0-30 Units/kg/hr (Adjusted) Intravenous TitrateMontrell Carmen PA-C isolyte-S pH 7.4 infusion Intravenous Continuous Montrell Carmen PA-C oxyCODONE (Oxy IR) tab 5 mg 5 mg Oral Q4H PRN Montrell Carmen PA-C Piperacillin-Tazobactam (Zosyn) 4.5 g in 100 mL NSS ivpb (FOUR hour infusion) 4.5 g IV Piggyback Q8H Now Montrell Carmen PA-C sodium chloride 0.9 % flush/inj 3 mL 3 mL IV Push PRN Montrell Carmen PA-C vancomycin per pharmacy order Does Not Apply Per Pharmacy Montrell Carmen PA-C Review of patient's allergies indicates: No Known Allergies REVIEW OF SYSTEMS: Per HPI otherwise negative PHYSICAL EXAMINATION: BP 114/55 | Pulse 76 | Temp (!) 38.4 C (101.2 F) (Oral) Comment: taken by CHRISTINA Hernandez | Resp 16 | Ht 1.676 m (5' 6") | Wt 87.5 kg (193 lb) | SpO2 96% | BMI 31.15 kg/m | BSA 2.02 m Constitutional: alert, no acute distress HEENT: normocephalic, atraumatic Eyes: No scleral icterus, EOMI Neck: No tracheal deviation Cardiovascular: Normal rate, regular rhythm Respiratory: Non-labored breathing on room air Abdomen: soft, non-tender, non-distended, no masses Skin: No obvious rashes or lesions Neurological: No gross focal deficits Psychiatric: Normal mood and affect Genitourinary: Normal male genitalia. No duffy LABS: CBC Lab results within last 7 days (see chart for full results) Units 12/22/23 0552 12/21/23 2246 12/16/23 1638 WBC K/uL 13.85* 14.95* 19.98* HGB g/dL 6.6* 7.0* 9.4* HCT % 20.7* 21.2* 28.6* PLT K/uL 590* 643* 611* BMP Lab results within last 7 days (see chart for full results) Units 12/22/23 0552 12/21/23224512/16/23 1638 Sodium mmol/L 131* 132* 124* Potassium mmol/L 3.5 3.6 5.3* Chloride mmol/L 97* 97* 86* CO2 mmol/L 22 BUN mg/dL 12 13 40* Creatinine mg/dL 1.4* 1.3* 1.9* Glucose mg/dL 124* 117 99 Ca, Mg, Phos Lab results within last 7 days (see chart for full results) Units 12/22/2355112/21/23224512/16/23 1638 Calcium mg/dL 8.2* 8.0* 9.3 Magnesium mg/dL -- 1.8 -- Phosphorus mg/dL -- 2.3* -- Hepatic Function Panel Lab results within last 7 days (see chart for full results) Units 12/21/23224512/16/23 1638 Bilirubin, Total mg/dL 0.3 0.5 Bilirubin, Direct mg/dL <0.2 -- Alkaline Phosphatase U/L 276* 117 AST U/L 110* 46 ALT U/L 105* 67* Protein g/dL 6.6 7.2 | 7.2 Lipase No results in the last 7 days - inpatent use only Troponins No lab exists selected component "HSTNT" Coags Lab results within last 7 days (see chart for full results) Units 12/22/2352 12/21/232245 INR 1.2 1.2 Lactic acid Lab results within last 7 days (see chart for full results) Units 12/21/232245 Lactate mmol/L 1.0 Arterial Blood Gas No results in the last 7 days - inpatent use only IMAGING: No imaging results in the last 24 hours IMPRESSION: 57 year old male seen in consultation for imaging findings concerning for prostatic abscess. RECOMMENDATIONS: - no acute urologic intervention - upon review of imaging, air and fluid collection appears to be posterior to the prostate - if concern for abscess persists, would recommend Colorectal surgery evaluation - rest of care per primary team Thank you for this consult. Please page the on-call Urology provider for any questions or concerns Patient to be discussed with Dr. Barrera. Yinka Agustin MD 12/22/2023 1:53 PM Associated attestation - Kaiden Barrera MD - 12/22/2023 2:00 PM EDT I saw and evaluated the patient today. I have reviewed the trainee note and agree. * Radha Hartman DO - 12/22/2023 11:01 AM EDTAssociated Order(s): THORACIC MEDICINE / PULMONOLOGY CONSULT IP Images from the original note were not included. CONSULT - Thoracic / Pulmonary Medicine [facility] [place] [id number] Name: Rogelio Barrera Location: [facility] [place] H678/A Date: 12/22/2023 Time: 11:01 AM REQUESTING SERVICE: Med K REASON FOR CONSULT: "pulmonary cavitary lesion, unsure infectious vs malignancy related." HISTORY OF PRESENT ILLNESS: Rogelio Barrera is a 57 yo M with hypertension, OFELIA on CPAP, obesity, DDD, who presents as a transfer from [facility] where he was originally admitted for acute encephalopathy, since found to have MRSA bacteremia, concern for cavitary lung lesion, RLE DVT, a right femur lytic lesion OMversus malignancy (planned for bone biopsy with ortho 12/22/2023), gas/fluid collection of the prostate/rectum, and mitral valve vegetation on TTE. The patient states that he was in his usual state of health prior to admission, and that he was previously only followed for his hypertension. He does not recall the events leading up to his being found down by his brother. He reports he feels somewhat improved since initiating treatment. He deniesany shortness of breath prior to admission, when undergoing his usual activity levels (no strenuousexercise, generally able to complete his ADLs, takes the stairs etc). Utilizes a rolling walker dueto lower extremity pain rather than SOB or fatigue. At the time of evaluation, the patient was seen at bedside and was receiving a unit of pRBCs. He currently denies chest pain, shortness of breath, cough, hematochezia, melena, hemoptysis, dizziness/lightheadedness. He reports intermittent fevers. He states endorses former tobacco use (15-20 yrs of chewing tobacco, denies cigarette or cigar use), and denies significant alcohol or recreational druguse. 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 Particulate Exposure: no Related Symptoms: no Worse Through the Week: no Better Away From Work: no Residence: Duration: since childhood Home Environment Pet: Has not had a dog/pet in 4 years, occasionally exposed to his sister's/brother's pets (dogs) Contact with Agriculture: no Birds: no Recent Travel: no Service: no Family Hx: Reports his sister was diagnosed with Lung Cancer in her 60s, did have a hx of tobacco use PAST MEDICAL HISTORY: Past Medical History: Diagnosis [...] Father Hypertension Father Cancer Grandmother (Maternal) stomach SOCIAL HISTORY: Social History Tobacco Use Smoking status: Never Smokeless tobacco: Never Vaping Use Vaping Use: Never used Substance Use Topics Alcohol use: No Drug use: No ALLERGIES: Patient has no known allergies. ROS: As per HPI, otherwise non-contributory PHYSICAL EXAMINATION: Most Recent Vital Signs: BP: 111 mmHg/51 mmHg (12/22/23 1056) Pulse: 68 (12/22/23 1056) Temp: 37.28 C (12/22/23 1056) Temp Summary: Temp Min: 37.1 C (98.7 F) Max: 38.4 C (101.2 F) SpO2: 96 % (12/22/23 1056) O2 flow rate: Supplemental O2 Delivery: Room Air, None (12/22/23 105) O2 Mode: O2 %: O2 Flow Rate: IPAP: CPAP/EPAP: Vital Signs Last 24 Hours: Systolic BP: Most Recent Systolic BP Av.7 mmHg Min: 108 mmHg Max: 114 mmHg Temperature: Most Recent Temperature Av.5 C Min: 37.06 C Max: 38.44 C Pulse: Pulse Av.6 Min: 68 Max: 83 Respirations: Resp Av.9 Min: 15 Max: 16 SpO2: SpO2 Av.9 % Min: 95 % Max: 100 % Constitutional: middle aged male, in no acute distress, pale, resting comfortably in bed HEENT: normal: normocephalic, atraumatic; no masses, tenderness, or adenopathy Neck: supple, normal range of motion CV: normal rate and rhythm, no murmur, gallops or rub Chest: normal respiratory effort, lungs clear to auscultation and percussion Abdomen: normal: soft, bowel sounds normal, no masses, tenderness or organomegaly Extremities: 2+ pitting edema of the right LE, up to the level of the thigh Skin: warm, dry, intact, pale Neuro: alert, oriented to person, place, and time, no focal or global deficits LABS: Labs reviewed as indicated below: Lab results within last 7 days (see chart for full results) Units 12/22/23 0552 12/21/23224512/16/23 1638 HGB g/dL 6.6* 7.0* 9.4* HCT % 20.7* 21.2* 28.6* WBC K/uL 13.85* 14.95* 19.98* PLT K/uL 590* 643* 611* Lab results within last 7 days (see chart for full results) Units 12/22/23 0552 12/21/23224512/16/23 1638 Sodium mmol/L 131* 132* 124* Potassium mmol/L 3.5 3.6 5.3* Chloride mmol/L 97* 97* 86* CO2 mmol/L 22 BUN mg/dL 12 13 40* Creatinine mg/dL 1.4* 1.3* 1.9* VENOUS BLOOD GAS: 12/22/2023 PH: 7.46 PCO2: 37.9 mm Hg PO2: 48.0 mm Hg Ultrasound right lower extremity Impression: Extensive occlusive DVT throughout the right lower extremity CT chest without contrast Impression There is a 2.8 cm cavitary lesion of the base of the left lung with a rim measuring 0.9 cm. This isconcerning for cavitary malignancy, less likely cavitary pneumonia Intraseptal thickening could relate to atelectasis and/or pulmonary edema Minimal atherosclerotic disease CT A/P: Transesophageal echocardiogram There is a 0.5 cm x 0.3 cm mobile echodensity in the left atrial aspect of the P1 scallop of the posterior mitral valve leaflet consistent with the appearance to a small vegetation IMPRESSION: Rogelio Barrera is a 57 yo M with hypertension, OFELIA on CPAP, obesity, DDD, who presents as a transfer from [facility] where he was originally admitted for acute encephalopathy, since found to have MRSA bacteremia and concern for cavitary lung lesion, with thoracic medicine consulted for evaluation of etiology of above noted lesion (infection vs malignancy). Currently HD stable and onroom air. Patient was admitted for a primary diagnosis of COPD Exacerbation: no Patient has a diagnosis of COPD: no Does this patient have hypercarbic respiratory failure (pCO2 greater than 52)? No Patient is being followed by a Orthotics Prosthetics Assistant: no PULMONARY CONSULTATION SUGGESTION(S): Etiology of cavitary lesion unclear at this time. Risk factors for both infection (MRSA bacteremia,possible, OM, cardiac vegetations) and malignancy (DVT, hx of tobacco use, etc). Patient to undergobone biopsy of lytic lesion of the femur which may help to provide further information. Due to location of the cavitary pulmonary lesion, not amenable to biopsy via bronchoscopy at this time Recommend continuing treatment with antibiotics Recommend flutter and incentive therapies, and out of bed as able for good pulmonary hygiene Will likely need repeat CT chest in 3 months to evaluate for resolution of lesion RESIDENT ATTESTATION: Patient seen and discussed with Dr. Candelario, Pulmonary / Thoracic Medicine Attending. STAFF NOTE: Associated attestation - Aníbal Candelario DO - 12/22/2023 6:35 PM EDT Pulmonary medicine staff: Attending Attestation: I have discussed the patient's management with the medical trainee and agree with the note. Please refer to the documented findings and plan of care. The patient's bedside service today consisted of an evaluation. I was present and confirmed the findings of the history and exam. Briefly, the patient is a 57-year-old never smoker with past medical history significant for allergic rhinitis, hypertension, obstructive sleep apnea, obesity (Body mass index is 31.15 kg/m.), and a family history of lung cancer (his sister - he notes he was not sure if she is/was a smoker). He was admitted to [facility] 12/21/2023 as a transfer from an outside hospital for evaluation of MRSA bacteremia, likely endocarditis, and possible osteomyelitis. He was without pulmonary complaints.However, CT chest performed at the outside facility, showed an approximate 2.5 cm thick walled leftlower lobe cavity nearly abutting the left hemidiaphragm. This prompted a Pulmonary Medicine consult. As above, the patient is without any respiratory complaints. He denies significant shortness of breath, cough, sputum, chest tightness. He also denies symptoms suggestive of aspiration. He states that prior to his current hospitalization, he never had chest imaging before. Lab/imaging personally reviewed and visualized. Significant for: VBG 12/21/2023: Consistent with mild respiratory alkalosis BMP: Overall improved mild hyponatremia and hypochloremia. Normal bicarbonate and measured anion gap. Estimated GFR 61. Mild hyperglycemia. CBC without differential: Modest leukocytosis, improvement in anemia with hemoglobin 7.5. Worseningthrombocytosis Blood cultures 12/21/2023: No growth to date X 2 sets Urinalysis 12/22/2023: Nitrite negative. Moderate esterase. WBC 20-29. RBC 3-5. Bacteria 0-25. Yeast present. WBC clumps present. Urine culture: Pending MRSA nasal screen 01/13/2024: Positive Procalcitonin 12/21/2023: 0.26 LFTs: Hypoalbuminemia, modest elevation in transaminases phosphatase. Bilirubins. Chest CT 12/17/2023: Mild motion artifact with possible mild mosaicism. In the left lower lobe, nearly abutting the left hemidiaphragm, there is a relatively thick-walled 2.5 cm irregular cavity without obvious debris inside. No significant mediastinal or hilar adenopathy. No prior chest CT on filefor comparison. On physical examination: He was awake interactive. Oriented X 3. On room air. No cough during interview. Speaks in full sentences. Breath sounds minimally diminished at the bilateral lung bases without crackles, rhonchi, wheeze. Heart regular with soft systolic murmur. Abdomen soft audible bowel sounds. Extremities with trace-1+ edema, no cyanosis. Agree with assessment and plan as outlined: MRSA bacteremia and mitral valve endocarditis Concern for femoral osteomyelitis/septic arthritis Possible abscess near the gastrocnemius muscle and abscess near the prostate/rectum 2.5 cm thick-walled cavity at the left lung base Family history of lung cancer: Sister. The patient is not clear if she was a smoker. Pulmonary Medicine was asked to comment regarding tissue sampling as there is concern that the lunglesion seen on CT may represent infection versus malignancy. However, the location of the lesion makes biopsy via bronchoscopy or other means quite risky as he would be at very high-risk for pneumothorax with any procedure. I did discuss bronchoscopy with the patient and his potential risk for pneumothorax. Based on risk,the patient would like to defer tissue sampling for now, which is quite reasonable. We did discuss that the differential diagnosis includes infection, malignancy, and congenital anatomic abnormality. Given his history of a first-degree relative with lung cancer, I explained him thatcancer is relatively high on the differential diagnosis list, though given his acute infectious symptoms, infection is also quite high on the differential diagnosis list. As above, he denies any respiratory symptoms whatsoever. He denies any recent or subacute history of aspiration symptoms. He was admitted to the outside hospital for altered mental status, which may have led to aspiration, but the acuity seems too soon to explain his pulmonary lesion. I would recommend against any invasive testing at this time. Rather, please continue with antimicrobial treatment as directed by Infectious Disease. He is presently on vancomycin. He should have a follow-up chest CT in 4-6 weeks to reassess the area. If this is improved with antimicrobial treatment, this may be due to infection. If this persists or worsens, he may need attemptat tissue sampling at that time (via thoracic surgery verses possibly via navigational bronchoscopy). The patient notes he lives a distance away from [facility]. Therefore, the follow-up chest CT may beperformed closer to home. If he does need tissue sampling which can not be performed closer to home, he may be referred to outpatient pulmonary medicine for consideration of bronchoscopy/tissue sampling He notes he has never had chest imaging before. Therefore, the acuity of this lesion is not clear. Please initiate routine pulmonary hygiene maneuvers while hospitalized: Incentive spirometry, flutter, head of bed elevated > 30 degrees at all times, aspiration precautions, out of bed to ambulate as/when able DVT prophylaxis as per facility protocol Finally, please discuss the need for contact isolation with infection control. He has presently noton isolation and he does have an active MRSA infection (not simply MRSA nasal swab positive) based on outside cultures. All questions from the patient were addressed. Please call with any questions, concerns, or clinical deterioration. Pulmonary medicine will sign off. Aníbal Candelario DO * Aidan Mc MD - 12/22/2023 9:43 AM EDTAssociated Order(s): INFECTIOUS DISEASE CONSULT IP CONSULT - Infectious Disease [facility] [place] [id number] Name: Rogelio Barrera Location: [facility] [place] H678/[id number] Date: 12/22/2023 Time: 9:43 AM REQUESTING SERVICE: Medicine REASON FOR CONSULT: MRSA Bacteremia HPI: Patient is a 57 year old male admitted to the hospital on 12/21/2023 as a direct admission from [facility] due to MRSA bacteremia. Past medical history includes OFELIA, hypertension, hyperlipidemia with recent workup right knee pain that initially started while shoveling snow in September, x-rays were unremarkable, MRI with findings concerning for distal femoral osteomyelitis with extension intomuscle with associated abscess as well as probable septic arthritis on 12/11/2023, biopsy was planned however delayed due to finding of MRSA bacteremia [facility] also revealed abnormal gas and fluid collection between the prostate gland and rectum measuring approximately 4.1 X 2.1 cm with possible fistulous formation. Per documentation blood cultures on dates 12/16, 12/17, 12/18 - posit. for MRSA, TTE was unremarkable however givenpersistent bacteremia KIERSTEN was completed 12/21/2023 and revealed a small vegetation on the mitral valve. It seems patient has been given vancomycin/cefepime since 12/17/2023 in his currently on vancomycin/Zosyn day 5 of therapy. Blood cultures are drawn and are currently pending. WBC 14, current temperature 101.2. Orthopedic Surgery planning to take patient for OR today for biopsy. Patient does complain of pain in his right knee however denies shortness of breath, chills, diarrhea past 24 hours. ALLERGIES: Patient has no known allergies. PAST MEDICAL HISTORY: Past Medical History: Diagnosis [...] cm REMOVAL OF ADENOIDS, UNDER AGE 13 SOCIAL HISTORY: Social History Tobacco Use Smoking status: Never Smokeless tobacco: Never Vaping Use Vaping Use: Never used Substance Use Topics Alcohol use: No Drug use: No FAMILY HISTORY and FAMILY STATUS: Family History Problem Relation Age of Onset Cancer Mother panreatic Heart Disorder Father Hypertension Father Cancer Grandmother (Maternal) stomach Family Status Relation Status Mo Fa Alive Sis Alive Sis Bro Alive MGMA (Not Specified) ROS: CONSTITUTIONAL: Denies weight loss, fever and chills. HEENT: Denies changes in vision and hearing. RESPIRATORY: Denies SOB and cough. CV: Denies palpitations and CP. GI: Denies abdominal pain, nausea, vomiting and diarrhea. : Denies dysuria and urinary frequency. MSK: Denies myalgia SKIN: Denies rash and pruritus. NEUROLOGICAL: Denies headache and syncope PSYCHIATRIC: Denies recent changes in mood. Denies anxiety and depression. PHYSICAL EXAMINATION: Most Recent Vital Signs: BP: 108 mmHg/50 mmHg (12/22/23323) Pulse: 78 (12/22/23323) Temp: 38.44 C (12/22/23323) Temp Summary: Temp Min: 37.8 C (100.1 F) Max: 38.4 C (101.2 F) SpO2: 95 % (12/22/23323) O2 flow rate: Supplemental O2 Delivery: Room Air, None (12/22/23 0324) Vital Signs Last 24 Hours: Systolic BP: Most Recent Systolic BP Av mmHg Min: 108 mmHg Max: 114 mmHg Temperature: Most Recent Temperature Av.1 C Min: 37.83 C Max: 38.44 C Pulse: Pulse Av.5 Min: 78 Max: 83 Respirations: Resp Av Min: 16 Max: 16 SpO2: SpO2 Av % Min: 95 % Max: 95 % GENERAL: Appears as stated age. No acute distress. HENT: Moist mucous membranes. No scleral icterus. No petechial hemorrhages. LUNGS: Clear to auscultation bilaterally. No accessory muscle use. CARDIOVASCULAR: Regular rate and rhythm. No murmur. ABDOMEN: Soft, non-tender and non-distended. No palpable masses. EXTREMITIES: +1 pitting edema bilateral lower extremities, no Osler's nodes, Janeway lesions. Rightknee diffusely tender to palpation without obvious overlying skin abnormalities. Posterior calf tenderness to deep palpation. SKIN: No rashes or lesions. Warm. NEUROLOGIC: No focal neurological deficits. Cranial nerves grossly intact. LABS: Labs reviewed as indicated below: Most recent. MICROBIOLOGY DATA: Recent Cultures (2 Weeks) 12/21/2023 12/21/2023 10:49 PM 10:46 PM BLOOD CULTURE GROWTH No growth to date No growth to date IMAGING: EXAM MR FEMUR NO JOINT RIGHT WITH WITHOUT IV CONTRAST; MRI KNEE RIGHT WO CONTRAST-RT 12/11/2023 9:00 am; 12/11/2023 8:55 am HISTORY Provided clinical history: "complex fluid location in knee but also mid to distal medail thigh" COMPARISON Ultrasound dated November 02, 2023 and radiographs dated November 05, 2023. TECHNIQUE Multiplanar, multi-sequence MRI of the right was performed with and without IV contrast. Multiplanar, multisequence MRI of the right knee was also performed without IV contrast. FINDINGS There is extensive heterogeneous T2/STIR signal hyperintensity and patchy T1 signal hypointensity in the distal femur, extending from the mid-diaphyseal region into the subchondral bone of the femoral condyles. The patchy T1 hypointensity is interspersed among areas of preserved fatty T1 marrow hype rintensity. There is also heterogeneous enhancement on the postcontrast sequences, with multiple geographic areas of non-enhancement in the abnormal marrow. There is a relatively permeative appearance of the distal femoral cortical bone, with at least two focal areas of full-thickness cortical disru ption in the anterior metadiaphyseal region (series 10, images 14 and 23 on the femur scan). There is heterogeneous enhancing soft tissue in the anterior aspect of the distal femur, adjacent to the areas of cortical disruption described above. The enhancing soft tissue is not particularly masslike, and there are multiple areas of fat density within the abnormal tissue. This includes a 1.3 cm fat density that is associated with a fat-fluid level that indicates liquid fat, likely due to liquid marrow spilling into the overlying soft tissue (refer to image 31 of series 9 and 10 on the femur scan). There is also enhancing edema in the distal quadriceps and proximal calf muscles, as well as a peripherally-enhancing intramuscular fluid collection in the medial head of the gastrocnemius that measures approximately 3.9 x 1.7 x 1.0 cm. There is also a moderate knee joint effusion with thin diffuse enhancing synovitis. Complex degenerative tearing of the body and posterior horn of the medial meniscus. Lateral meniscus is intact. Cruciate ligaments are intact. Collateral ligaments are intact. Moderate cartilage lossin the medial compartment. IMPRESSION IMPRESSION 1. Imaging features favor a diagnosis [...] moderate cartilage loss in the medial compartment. 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 2.8 cm cavitary lung lesion Abscess of prostate/rectum 57-year-old male with a myriad of likely MRSA related infections throughout his body which is unusual presentation without an obvious immuno compromising condition. Patient was fairly healthy prior and the source is unclear however possibly started at the knee as this was his 1st complaint however do suspect there is an underlying mechanism allowing this infection to disseminate which will hopefully be elucidated on biopsy. Patient is currently NPO, biopsy is planned for today however pending operating room time. Do not suspect any other further infection and as such can discontinue Zosyn andcontinue with vancomycin monotherapy. Would appreciate bacterial/fungal/AFB cultures in addition topath report. Patient will likely need at least 4 weeks of IV antibiotics pending distal femur results. RECOMMENDATIONS: -vancomycin IV per pharmacy, appreciate dosing recommendations -discontinue Zosyn -bacterial/fungal/AFB culture of distal femur/other tissue obtained -repeat blood cultures every 24-48 hours if most recent blood culture becomes positive Appreciate consultation, please do not hesitate to reach out for any further questions or concerns. Aidan Mc MD PGY4 Infectious Disease Associated attestation - Alexandra James MD - 12/22/2023 4:41 PM EDT I saw and evaluated the patient today. I have reviewed the trainee note and agree. I spent a total of 65 minutes coordinating, documenting, and providing care for this patient excluding time spent in the performance of separately billed services. * Sebas Sheridan MD - 12/21/2023 11:03 PM EDTAssociated Order(s): ORTHOPAEDICS CONSULT IP ORTHOPAEDIC SURGERY CONSULTATION NOTE Name: Rogelio Barrera Date: 12/21/2023 Consulting Service: Medicine Reason for Consultation: R lytic lesion concern for OM/Malignancy Care for the patient, including evaluation, review of imaging, and/or planning of treatment began at 2235. History of Presenting Illness: Patient seen in orthopaedic oncology clinic, previously planned for arrival for Bone Biopsy on 12/18/23 but was delayed due to presence at [facility] for MRSA bacteremia. Transfer[place] [facility] [place] with plan for bone biopsy of R femur. Clinic Note as below 12/16/23 with updated examinations and information. HISTORY OF PRESENT ILLNESS: Rogelio Barrera is [...] or tingling of the right lower extremity. No new numbness/tingling, examination of RLE relatively unchanged from prior. Past Medical History: Past Medical History: Diagnosis Date Allergic rhinitis BMI 35.0-35.9,adult DDD (degenerative disc disease), lumbosacral Dyslipidemia, goal LDL below 130 Encounter for hepatitis C screening test for low risk patient 11/10/2021 negative Essential hypertension with goal blood pressure less than 140/90 Obstructive sleep apnea 12/09/2018 Dr Bell Past Surgical History: Past Surgical History: Procedure Laterality Date COLONOSCOPY W/ LESION REMOVAL, SNARE 03/04/2019 rectal polyp at 10 cm REMOVAL OF ADENOIDS, UNDER AGE 12 Allergies: Review of patient's allergies indicates: No Known Allergies Home medications: Prior to Admission medications Medication Sig Last Dose Discont. Chlorthalidone 25 MG Oral Tablet (Hygroton) TAKE 1 TABLET BY MOUTH EVERY DAY IN THE MORNING Unknown Enalapril Maleate 10 MG Oral Tablet (Vasotec) TAKE 1 TABLET BY MOUTH EVERY DAY IN THE MORNING Unknown Simvastatin 20 MG Oral Tablet (Zocor) TAKE 1 TABLET BY MOUTH EVERYDAY AT BEDTIME Unknown Baclofen 20 MG Oral Tablet Take 1 Tablet by mouth in the morning and 1 Tablet at noon and 1 Tablet before bedtime. Unknown Naproxen 500 MG Oral Tablet (Naprosyn) Take 1 Tablet by mouth 2 times a day as needed for Pain. Unknown Atenolol 25 MG Oral Tablet (Tenormin) TAKE 1 TABLET BY MOUTH EVERY DAY IN THE MORNING Unknown Enalapril Maleate 20 MG Oral Tablet (Vasotec) TAKE 1 TABLET BY MOUTH EVERY DAY WITH THE 10MG TABS FOR TOTAL DAILY DOSE OF 30MG Unknown Family History: non-contributory Social History: Social History Tobacco Use Smoking status: Never Smokeless tobacco: Never Vaping Use Vaping Use: Never used Substance Use Topics Alcohol use: No Drug use: No Physical Exam: Blood pressure 114/50, pulse 83, temperature 37.8 C (100.1 F), temperature source Oral, resp. rate 16, height 1.676 m (5' 6"), weight 88.5 kg (195 lb), SpO2 95%. General: Appears laying on bed in NAD. Awake and alert. MSK: RUE: Skin intact throughout Non-tender to palpation over: Clavicle, shoulder, humerus, elbow, forearm, wrist, hand, and fingers. Motor: intact to AIN/PIN/ulnar distributions Sensation: SILT to medial/ulnar/radial distributions Palpable radial pulse LUE: Skin intact throughout Non-tender to palpation over: Clavicle, shoulder, humerus, elbow, forearm, wrist, hand, and fingers. Motor intact to AIN/PIN/ulnar distributions SILT to medial/ulnar/radial distributions Palpable radial pulse Pelvis: non-tender to AP compression LLE: skin intact throughout No pain with log roll. Non-tender to palpation over: Hip, thigh, knee, leg, ankle, foot, and toes. Motor: wiggles toes, able to DF/PF at ankle,able to straight leg raise Sensation: SILT in sa/salazar/sp/dp/t dist Palpable PT pulse RLE: Tenderness to palpation in the lateral gastrocs, more with resisted plantarflexion Mild tenderness along the medial distal femur [...] internal or external rotation of the hip but pain with flex/ext of knee No palpable lymphadenopathy in the groin Sensation intact to light touch in the sural/saphenous/superficial peroneal/tibial nerve distributions Foot warm and well perfused Labs: Lab Results Component Value Date/Time HGB 6.1 (L) 12/21/2023 10:46 PM HGB 7.0 (L) 12/21/2023 10:46 PM HGB 9.4 (L) 12/16/2023 04:38 PM HGB 15.9 02/27/2019 12:00 AM HGB 16.3 03/22/1998 12:43 PM HGB 16.1 06/01/1996 04:00 PM No results found for: "INR" Lab Results Component Value Date/Time WBC 14.95 (H) 12/21/2023 10:46 PM WBC 5.3 03/22/1998 12:43 PM WBC 5.6 06/01/1996 04:00 PM Lab Results Component Value Date/Time CRP (INFLAMMATORY MARKER) - TREMAINEER 311 (H) 12/16/2023 04:38 PM IMAGING: X-ray of the right femur and MRI of the right femur independently interpreted today in clinic revealing permeative lytic bone lesions throughout the patient's distal femur as well as contrast-enhancing bone lesion throughout the distal femur on MRI suggestive of possible lymphoma ASSESSMENT: 57-year-old male presenting with permeative lytic bone lesion of the right distal femurconcerning for possible lymphoma versus potential infection Plan: Patient formerly expected by orthopaedic oncology team for bone biopsy on 12/18/23, consent in chartfor this procedure - Listed for OR 12/22/23 pending attending review and availability - NWB RLE - ABX per primary, Zosyn as of now - FU with ortho - to be arranged by ortho - Remainder of care per primary team - Provisional care provided by the relations mgr resident, definitive care to be determined by an ortho attending at a later date - Patient to be discussed with attending relations mgr, provisional care and supervision provided by Dr. Sheridan Given the nature of the patient's traumatic high energy/open fractures, along with the patient's underlying co-morbidities, the patient was informed that he is at higher risk of complications including but not limited to nonunion, malunion, infection, loss of fixation/hardware failure, hematoma/seroma, and the possible need for additional procedures/surgeries as indicated. Jose Carlos Alvarez MD I discussed the patient's care with Dr. Alvarez. We reviewed the patient's imaging and labs. I agree with his documentation above with some exceptions / updates; I will plan for biopsy of the distalright femur today, 12/21. Given the recent history of bacteremia, I suspect the distal femur is more likely to be osteomyelitis than tumor, but the entire circumstance is unusual. I suspect there is more to understand as it is rare for a seemingly healthy 57 year old man to present with such multifocal and serious infection without additional comorbidity. Sebas Sheridan MD documented in this encounter Nursing Notes * Sia Steele RN - 01/01/2024 4:02 PM EDT This RN agrees with the assessment and charting completed by Nahomy Orellana RN. * Roni Ingram RN - 12/31/2023 8:29 PM EDT Dual Licensed Skin Assessment completed by Roni VASQUEZ and Shandra VASQUEZ. The patient is/has a N/A Skin Breakdown (includes non blanchable erythema): Yes. Wound Type: Moisture associated skin damage/incontinent related skin damage, location red groin area Wound Ostomy Nurse Notified: No - wound ostomy not needed at this time Nursing interventions: zinc lotion * Nya Cortes RN - 12/31/2023 3:50 PM EDT SBAR FOR POST INTERVENTIONAL RADIOLOGY PROCEDURE Patient Name: Rogelio Barrera Age:[id number] year old Sending to: [facility] Procedure: Tunneled CVC Placement Medications Administered: yes: 2 mg versed, 50 mcg Fent Special Instructions: Line okay to use Concerns: no Report from: Nya VASQUEZ Patient sent via: Bed Reason for SBAR handoff: Transfer Patient meets discharge criteria for Interventional Radiology. Vital signs stable. Dressing clean, dry, and intact. Patient awake and oriented to pre procedure baseline. Patient with no nausea/vomiting. All belongings sent with patient. Vital Signs: BP: 139/73 (12/31/23 1540) Temp: 36.1 C (97 F) (12/31/23 1415) Pulse: 84 (12/31/23 1540) Resp: 19 (12/31/23 1540) SpO2: 100 % (12/31/23 154) Glucose (Bedside): 108 (12/22/23 1405) Weight: 103.1 kg (227 lb 6.4 oz) (12/31/23623) Height: 167.6 cm (5' 6") (12/21/232147) Neurological: Marcel Coma Scale Eyes Open: Spontaneous (12/31/23 154) Best Verbal Response: Verbally appropriate for age (12/31/23 154) Best Motor Response: Obeys commands appropriate for age (12/31/231539) Coma Score: 15 (12/31/231539) Activity: Four Extremities LOC: Fully Awake or Pre-Anesthetic Level of Consciousness BP: Less than (+/-) 20% Resp: Deep Breathe and Cough Freely (12/30 1541) Respiratory: Pain Assessment Flowsheet Row Most Recent Value [facility] 0-10 Pain Score 0 (no pain) PAINAD Total 0 Lines: Urethral Catheter Coude (Active) Site Assessment Clean;Skin intact 12/31/23799 Securement Method Securing device (Describe) 12/31/23799 Catheter secured to leg? Yes 12/31/23799 Catheter bag below bladder? Yes 12/31/23799 Has IUBC been removed? (If yes, ensure the order is discontinued.) No, acute urinary retention 12/31/23799 IUBC Tubing Disconnected This Shift? No 12/31/23799 Collection Container Standard drainage 12/31/23799 Urine Description Clear;Yellow 12/31/23799 Output (mL) 350 mL 12/30/23 1414 Number of days: 5 Peripheral Line Left;Lower Arm 20 Gauge (Active) Status Fluids infusing 12/31/23799 Tubing Changed No 12/31/23799 Phlebitis Scale 0 12/31/23799 Infiltration Scale 0 12/31/23799 Site Description (Other) Without redness, swelling or drainage 12/31/23799 Site Intervention Flushed 12/31/23799 Dressing Assessment Dressing clean, dry, and intact 12/31/23799 Dressing Intervention None required 12/31/23 08 Number of days: 4 Peripheral Line Lower;Right Arm 22 Gauge (Active) Status Capped/Locked;Flushes easily;Alcohol disinfectant cap;No blood return 12/31/23 08 Tubing Changed No 12/31/23799 Phlebitis Scale 0 12/31/23799 Infiltration Scale 0 12/31/23799 Site Description (Other) Without redness, swelling or drainage 12/31/23 08 Site Intervention Flushed 12/31/23799 Dressing Assessment Dressing clean, dry, and intact 12/31/23799 Dressing Intervention None required 12/31/23799 Number of days: 1 Drain Duy Right;Outer Thigh (Active) Status Bulb Suction 12/31/23799 Suction Bulb Suction 12/31/23799 Site Description Without redness, swelling or drainage 12/31/23799 Dressing Assessment Dressing clean, dry, and intact 12/31/23799 Description of Output Serous 12/31/23799 Dressing Intervention None required 12/31/23799 Output (mL) 35 mL 12/31/23 0500 Number of days: 6 Tunneled Central Cath Single Lumen Right Chest (Active) Proximal Lumen Status Alcohol disinfectant cap;Flushes easily;Positive blood return;Capped/Locked 12/31/23 153 Site Description Without redness, swelling or drainage 12/31/23 153 Site Intervention Flushed 12/31/23 153 Catheter Securement Device Applied 12/31/23 153 Dressing Assessment Dressing clean, dry, and intact;Gel Chlorhexidine Gluconate dressing 12/31/231530 Dressing Intervention Applied 12/31/23 153 Line Necessity Yes, meets criteria 12/31/231530 Number of days: 0 * Nya Cortes RN - 12/31/2023 2:25 PM EDT title lawyer note Name: Rogelio Barrera Date: 12/31/2023 Time: 2:38 PM Procedure: Tunneled Infusion Catheter Insertion Patient ID band checked using two identifiers. Patient placed on procedure table, supine position, with comfort measures intact and safety strap in place. Hemodynamic monitoring placed and initiated.Patient denies any current complaints at current time. RT staff prepares and preps for procedure. 2:51 PM 1 mg Versed given per order of Keila Islas PA-C. Order was verbalized and verified with same provider prior to administration. Reevaluation statement: RN received verbal confirmation that the patient was reevaluated by Sweta QUINTERO immediately prior to the sedation at 3:03 PM . 3:04 PM 1 mg Versed and 50 mcg Fentanyl given per order of Keila Islas PA-C. Order was verbalized and verified with same provider prior to administration. Procedure by physician. 3:07 PM Timeout performed by Dr. Tyler Torres. Correct catheter/tube size verbalized and verified during timeout. 3:12 PM Procedure started by Keila Islas PA-C, and scrubbed RT Delonte Bergeorn. Ultrasound utilizedfor anatomical analysis of patient and access needle guidance. 1% buffered lidocaine given by doctor at right site. 3:16 PM Access obtained. Guidewire inserted. Images obtained. 3:20 PM 1% buffered lidocaine and lidocaine with Epi given by doctor at right site. 3:31 PM Catheter placed, see Central Line Note. Images obtained. All ports with positive blood return. Ports flushed. 3:37 PM Sutures placed. 3:42 PM Area cleaned. Secure Port IV applied to site. CHG dressing applied. Green caps applied. Patient tolerated procedure well without complications. All wires, catheters, sheaths and other devices have been inspected prior to the procedure for damage. This has been confirmed by the scrubbed RT and the operating physician. All items not intended to remain in the patient have been inspected, accounted for and have been removed from the patient atthe end of the procedure. This has been confirmed by the scrubbed RT and the operating physician. Pt did receive conscious sedation for their procedure, and was sedated from 3:04 PM to 3:49 PM. Total medications given Versed: 2 mg Fentanyl: 50 mcg 1% buffered lidocaine: 10 mL Lidocaine with Epi: 10 mL Please see doctor's operative note for additional details. * Efra Jacques RN - 12/31/2023 10:22 AM EDT INPATIENT TO INTERVENTIONAL RADIOLOGY (IR) HANDOFF COMMUNICATION NOTE [facility] [place] [address] [id number] Name: Rogelio Barrera Age: [age] year old [place] [facility] [place] H678[place]A Date: 12/31/2023 Safety Concerns: Fall Risk Allergies: Patient has no known allergies. Contrast Dye Allergy? no Allergy prepped? N/A Code Status: Full Code Isolation: Contact MRSA Report from: Efra Jacques RN at phone extension [phone] Patient arriving via: Bed Reason for SBAR handoff: Procedure Patient is alert and oriented and able to sign consent (if not, contact center director and number): Yes Patient NPO: no Patient NPO since: n/a Patient wears CPAP, BiPAP, or oxygen overnight: yes: CPAP Patient has difficulty breathing when lying flat? no Emotional/Personal Anxiety? no Last as needed pain medication given at (time): oxy, 5mg, 12/25/232115 Situation/Background Admission date: 12/21/2023 Patient Service: Med K [[id number]] Attending Provider: Winston Tarango MD Admitting diagnosis: Sepsis (HCC) MRSA bacteremia Chief Complaint: No chief complaint on file. 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 * Level of Care: Med Surg [3] Vital Signs: BP: 117/68 (12/31/23623) Temp: 37.3 C (99.1 F) (12/31/23623) Pulse: 67 (12/31/23623) Resp: 16 (12/31/23623) SpO2: 98 % (12/31/23623) Glucose (Bedside): 108 (12/22/23 1405) Weight: 103.1 kg (227 lb 6.4 oz) (12/31/23623) Height: 167.6 cm (5' 6") (12/21/23 2148) Labs: Please see Lab Flowsheet for lab values. Lab comments: yes: HGB 7.2, HTC 23.0 at 0638 12/31/23 Lines: Urethral Catheter Coude (Active) Site Assessment Clean;Skin intact 12/30/231899 Securement Method Securing device (Describe) 12/30/231899 Catheter secured to leg? Yes 12/30/231899 Catheter bag below bladder? Yes 12/30/231899 Has IUBC been removed? (If yes, ensure the order is discontinued.) No, acute urinary retention 12/30/231899 IUBC Tubing Disconnected This Shift? No 12/30/231899 Collection Container Standard drainage 12/30/231899 Urine Description Yellow;Clear 12/30/231899 Output (mL) 350 mL 12/30/23 1414 Number of days: 5 Peripheral Line Left;Lower Arm 20 Gauge (Active) Status Fluids infusing 12/31/23 0000 Tubing Changed No 12/30/231899 Phlebitis Scale 0 12/30/231899 Infiltration Scale 0 12/30/231899 Site Description (Other) Without redness, swelling or drainage 12/30/231899 Site Intervention Flushed 12/30/231899 Dressing Assessment Dressing clean, dry, and intact 12/30/231899 Dressing Intervention None required 12/30/231899 Number of days: 4 Peripheral Line Lower;Right Arm 22 Gauge (Active) Status Flushes easily;Capped/Locked;Alcohol disinfectant cap 12/31/23 0000 Tubing Changed N/A 12/30/231899 Phlebitis Scale 0 12/30/231899 Infiltration Scale 0 12/30/231899 Site Description (Other) Without redness, swelling or drainage 12/30/231899 Site Intervention Flushed 12/30/231899 Dressing Assessment Dressing clean, dry, and intact 12/30/231899 Dressing Intervention None required 12/30/231899 Number of days: 1 Drain Duy Right;Outer Thigh (Active) Status Bulb Suction 12/31/23 0000 Suction Bulb Suction 12/30/231899 Site Description Without redness, swelling or drainage 12/30/231899 Dressing Assessment Dressing clean, dry, and intact 12/30/231899 Description of Output Serosanguineous 12/30/231899 Dressing Intervention None required 12/30/231899 Output (mL) 35 mL 12/31/23499 Number of days: 6 Fall Scale: Fall Score: 60 (12/30/231899) Fall Interventions: Ambulation assist device present;Bed at low level;Bed alarm on;Yellow armband applied/intact and on patient;Fall risk sign outside room;Floor free of clutter;Non-skid foot covering on (12/30/231899) Neurological: Marcel Coma Scale Eyes Open: Spontaneous (12/30/231899) Best Verbal Response: Verbally appropriate for age (12/30/231899) Best Motor Response: Obeys commands appropriate for age (12/30/231899) Coma Score: 15 (12/30/231899) Additional Neurological Information: no Respiratory: Respiratory WNL: WNL- within normal limits (12/30/231899) Cough: None (12/30/231899) Depth/Rhythm: Regular (12/30/231899) Dyspnea Occurance: None (12/30/231899) Effort: Unlabored (12/30/231899) Oxygen therapy/ Mechanical vent Supplemental O2 Delivery: Room Air, None (12/31/23623) O2 %: 30 % (12/28/23 0002) O2 flow rate: 0 L/MIN (12/30/231842) NIV/CPAP Mask/Prongs: Mask (12/28/232214) O2 Device Skin Integrity : Skin unaffected (12/28/232214) Interventions: Ties tightened appropriately;Pressure offloaded (12/28/232214) O2 flow rate: 0 L/MIN (12/30/23 1843) Additional Respiratory Information: no Cardiac: Cardiovascular WNL: X - Exceptions to WNL as documented below (12/31/23) Heart Sounds: S1;S2 (12/31/23) Rhythm: NSR (12/31/23) CT interval: 0.17 seconds (12/31/23) QRS: 0.13 seconds (12/31/23) Extremities: +Sensation;Right;Left;Upper;Lower (12/30/231899) Pulses Right: Dorsalis Pedis +;Radial + (12/30/231899) Pulses Left: Dorsalis Pedis +;Radial + (12/30/231899) Edema Location: Lower extremities;Both (12/30/231899) Edema Assessment: +2 - Description (12/30/231899) Capillary Refill: 3 sec (12/30/231899) Additional Cardiac Information: no GI/: GI WNL: WNL - within normal limits (12/30/231899) Abdomen: Soft;Non-distended (12/30/231899) Additional GI/ Information: yes. Duffy Integumentary: Integumentary WNL: WNL - within normal limits (12/30/231899) Skin Description: Dry;Warm (12/30/231899) Skin Color: Flesh Tone;Mucus Membranes [place] (12/30/231899) Skin Lesion: Other - Describe (see bloew) (12/30/231899) Interventions: Other - Describe (skin barrier) (12/22/232099) Mark Score (auto-calculation): 17 (12/30/231899) Skin Breakdown: No (12/25/23 08) Skin Breakdown (including Red, Non-Blanchable Areas) Present on Admission?: No (12/21/232147) Additional Integumentary Information: no Restraints: No orders of the defined types were placed in this encounter. * Madai Barnard RN - 12/27/2023 3:04 PM EDT VAT: PICC consult noted and appreciated. Plan for evaluation pending nephrology clearance( GFR 24) as well as final discharge plans d/t pt requiring multiple PIV at this time. Ordering provider Ed Melissa MD made aware via TT. Please page [email or web address] PICC TEAM with questions/updates. * Ramón Urban RN - 12/26/2023 6:39 AM EDT The patient is again awake and restless sitting up and back in the bed,then intermittently dozing * Ramón Urban RN - 12/26/2023 5:19 AM EDT The patient was bladder scanned for greater than 400ml and was catheterized for retention. Koby Hernandez with [employer] was made aware of the need for catheterization. * Ramón Urban RN - 12/26/2023 3:40 AM EDT The patient is sleeping soundly a this time. The patient will arouse to stimulation but drifts backto sleep quickly. Vital signs are stable and will continue to be monitored, the patient displays noS/S of distress * Ramón Urban RN - 12/26/2023 2:24 AM EDT The patient was bladder scanned for 212 ml and will be scanned again in 2 hours. * Ramón Urban RN - 12/25/2023 11:05 PM EDT The patient again continues to be restless, yelling and removing telemetry, clothing, dressings, and O2. made aware. * Ramón Urban RN - 12/25/2023 9:49 PM EDT The patient was bladder scanned for 700ml per protocol. Patient was unable to void and was catheterized for 700ml. Hospitalist Mraina Lerma made aware. Patient tolerated well and is more restful atthis time. The patient had been pulling at his lines and dressings also made aware, * Delvis Luciano RN - 12/25/2023 2:50 PM EDT Dual Licensed Skin Assessment completed by Delvis Gomez RN and Liz Lainez RN The patient is/has a N/A Skin Breakdown (includes non blanchable erythema): Yes. Wound Type: Suspected pressure injury at bony prominence, location Sacral Wound Ostomy Nurse Notified: Yes - notified via [facility] Nursing interventions: Turn/repo pt Q [address] pt on a citadel bed. * Andrew Saravia NA - 12/25/2023 2:24 PM EDT Post Anesthesia Care Unit Transport Note [facility] [address] [id number] Dept. Rogelio Barrera Transported from [facility]iOp to : [facility] Time: 1415 Care of patient transferred to: Delvis VASQUEZ Transported via: Bed Belongings with Patient: NO Pulse : 85 Temp : 36.1 BP : 137/80 Respirations : 18 Pulse Ox : 98 O2 : 2L SCDS: On but not activated/no machine * Shandra Craft RN - 12/25/2023 1:36 PM EDT PERIOP TO IP HANDOFF COMMUNICATION NOTE [facility] [place] [address] Name: Rogelio Barrera AGE: [age] year old Location: [place] [facility] [place] Date: 12/25/2023 Attention to: Delvis Luciano RN Report from: Shandra Craft RN Patient arriving via: Bed Time of call: 1:37 PM Phone Ext: [phone] Reason for SBAR (Situation, Background, Assessment, Recommendation) handoff: OR Sending to: H678 Emotional/Personal Events & Special Needs: none Prescriptions in chart: No Code Status: Full Code Safety Concerns: confusion Allergies: Patient has no known allergies. PMH: Past Medical History: Diagnosis Date Allergic rhinitis BMI 35.0-35.9,adult DDD (degenerative disc disease), lumbosacral Dyslipidemia, goal LDL below 130 Encounter for hepatitis C screening test for low risk patient 11/10/2021 negative Essential hypertension with goal blood pressure less than 140/90 Family history of lung cancer Sister Obstructive sleep apnea 12/09/2018 Dr Bell PSH: Past Surgical History: Procedure Laterality Date BONE BIOPSY, TROCAR/NEEDLE, DEEP Right 12/22/2023 BIOPSY BONE TROCAR OR NEEDLE DEEP performed by Sebas Sheridan MD at [place] [facility] [place] COLONOSCOPY W/ LESION REMOVAL, SNARE 03/04/2019 rectal polyp at 10 cm REMOVAL OF ADENOIDS, UNDER AGE 13 Isolation: Isolation: Procedure: Bone debridement right distal femur Type of Anesthesia: General endotracheal anesthesia Block: popliteal lateral approach, femoral lateral approach IV intake: 1400 mL EBL: OR: 300 mL PACU: 0 mL Urine output: OR 0 mL PACU 0 mL IUBC (Duffy): Incision location: RLE Dressing location: Jesse wrap with RAJINDER Time of last skin assessment: post op Pressure injuries or areas of concern: none Lines: Peripheral Line Right Antecubital (Active) Number of days: 14 Peripheral Line Lower;Posterior;Right Arm 20 Gauge (Active) Status Fluids infusing 12/25/23 1307 Tubing Changed N/A 12/25/23 1307 Phlebitis Scale 0 12/25/23 1307 Infiltration Scale 0 12/25/23 1307 Site Description (Other) Without redness, swelling or drainage 12/25/23 1307 Site Intervention Flushed 12/25/23 130 Dressing Assessment Dressing clean, dry, and intact 12/25/231306 Dressing Intervention None required 12/25/231306 Dressing Change Due 01/01/24 12/25/23 0539 Number of days: 0 Peripheral Line Left Wrist 18 Gauge (Active) Status Capped/Locked 12/25/23 1307 Number of days: 0 Drain Duy Right;Outer Thigh (Active) Number of days: 0 Vital Signs: BP: 121/73 (12/25/231329) Temp: 36.5 C (97.7 F) (12/25/231329) Pulse: 92 (12/25/231329) Resp: 24 (12/25/231329) SpO2: 96 % (12/25/231329) O2 flow rate: 3 L/MIN (12/25/231329) Glucose (Bedside): 108 (12/22/23 1405) Time of last pain medication: NA Time of last antibiotic: NA Time of last antiemetic: 1340 Reglan INTERNET PROGRAMMER: no Drips: no Neurological: Neuro WNL: X - Exceptions to WNL as documented below (12/25/23 0500) Speech: Clear (12/25/23846) Level of Consciousness: Responds to voice (12/25/231329) RUE Motor Strength: 5-Active movement with full resistance (12/25/231329) RLE Motor Strength: 2-Active movement with gravity eliminated (12/25/231329) LUE Motor Strength: 5-Active movement with full resistance (12/25/231329) LLE Motor Strength: 4-Active movement with some resistance (12/25/231329) Coma Score: 14 (12/25/231329) Respiratory: Respiratory WNL: X - Exceptions to WNL as documented below (12/25/231329) Depth/Rhythm: Regular (12/25/23 08) Dyspnea Occurance: None (12/25/23846) Effort: Unlabored (12/25/23846) Oxygen therapy/ Mechanical vent Supplemental O2 Delivery: Nasal Cannula (12/25/231329) O2 flow rate: 3 L/MIN (12/25/231329) O2 Device Skin Integrity : Skin unaffected (12/22/232099) Interventions: Tubing adjusted (12/22/232099) Cardiac: Cardiovascular WNL: X - Exceptions to WNL as documented below (12/25/231329) Heart Sounds: S1;S2 (12/24/23 0100) Rhythm: NSR (12/25/23 0847) CT interval: 0.18 seconds (12/24/23 2300) QRS: 0.08 seconds (12/24/23 2300) Pulses Right: Dorsalis Pedis + (12/25/23 0847) Pulses Left: Dorsalis Pedis + (12/25/23 0847) Edema Location: Lower extremities;Right (12/25/231329) Edema Assessment: +3 - Description (12/25/231329) Capillary Refill: 3 sec (12/25/23 08) GI: GI WNL: WNL - within normal limits (12/25/231329) Abdomen: Soft;Non-distended;Bowel sounds present all quadrants (12/24/23 1136) : WNL: (no urine to assess) (12/25/231329) Urine Description: Other-Describe (no urine to assess) (12/25/23 08) Due to Void: 1909 Integumentary:Integumentary WNL: X - Exceptions to WNL as documented below (12/25/231329) Skin Description: Dry (12/25/23 1250) Skin Color: Pale (12/25/231329) Skin Lesion: Other - Describe (see below) (12/25/231329) Interventions: Other - Describe (skin barrier) (12/22/232099) Mark Score (auto-calculation): 19 (12/25/23 0500) Family updated on transfer: no Additional Assessment Information: none * Shandra Craft, RN - 12/25/2023 1:36 PM EDT Dual Licensed Skin Assessment completed by myself and Tere Gibbs RN. The patient is/has a N/A Skin Breakdown (includes non blanchable erythema): Yes - Surgical/Procedural changes only. * Julia Browne RN - 12/25/2023 12:08 PM EDT We have 17 antibiotic beads in the wound. * Ester Grey RN - 12/25/2023 8:57 AM EDT Dual Licensed Skin Assessment completed by Ester Grey RN and Vinay Vallejo RN. The patient is/has a N/A Skin Breakdown (includes non blanchable erythema): No * Ramón Urban RN - 12/25/2023 8:17 AM EDT Hand-Off - Nurse Communication Note Name: Rogelio Barrera Location: [place] [address]/A Date: 12/25/2023 Time: 8:18 AM Sending to: PACU Safety Concerns: Confused/Disoriented Allergies: Patient has no known allergies. Code Status: Full Code Isolation: None Isolation flowsheet: Special Needs: Up with Assist and walker Special Needs comments: Attention to: PACU Report from: Ramón Urban RN Phone extension: [phone] Patient arriving via: Bed Reason for SBAR handoff: OR Situation/Background Admission date: 12/21/2023 Patient Service: Med K [[id number]] Attending Provider: Ed Melissa MD Admitting diagnosis: Sepsis (HCC) MRSA bacteremia Chief Complaint: No chief complaint on file. Problem list: Principal Problem: Sepsis (HCC) Active Problems: Dyslipidemia, goal LDL below 130 Obstructive sleep apnea DICK (acute kidney injury) (HCC) Cavitary lesion of lung MRSA bacteremia Anemia Lytic bone lesion of femur Acute deep vein thrombosis (DVT) of right lower extremity (HCC) Prostate abscess Endocarditis of mitral valve Family history of lung cancer Resolved Problems: * No resolved hospital problems. * Level of Care: Med Surg [3] Assessment Vital Signs: BP: 109/62 (12/25/23731) Temp: 36.4 C (97.5 F) (12/25/23731) Pulse: 101 (12/25/23731) Resp: 16 (12/25/23731) SpO2: 97 % (12/25/23731) Glucose (Bedside): 108 (12/22/23 1405) Weight: 88.8 kg (195 lb 12.3 oz) (12/25/23 0300) Height: 167.6 cm (5' 6") (12/21/238) Fall Scale: Fall Score: 60 (12/25/23499) Fall Interventions: Ambulation assist device present (12/25/23499) Neurological: Neuro WNL: X - Exceptions to WNL as documented below (12/25/23499) Marcel Coma Scale Eyes Open: Spontaneous (12/25/23499) Best Verbal Response: Verbally appropriate for age (12/25/23499) Best Motor Response: Obeys commands appropriate for age (12/25/23499) Coma Score: 15 (12/25/23499) Additional Neurological Information: Disoriented to situation at times Respiratory: Respiratory WNL: WNL- within normal limits (12/25/23499) Depth/Rhythm: Regular (12/24/23499) Dyspnea Occurance: None (12/24/23 113) Effort: Unlabored (12/24/231135) Oxygen therapy/ Mechanical vent Supplemental O2 Delivery: Room Air, None (12/25/23731) O2 flow rate: 0 L/MIN (12/24/231936) O2 Device Skin Integrity : Skin unaffected (12/22/232099) Interventions: Tubing adjusted (12/22/232099) O2 flow rate: 0 L/MIN (12/24/231936) Additional Respiratory Information: Cardiac: Cardiovascular WNL: X - Exceptions to WNL as documented below (12/25/23499) Heart Sounds: S1;S2 (12/24/23 0100) Rhythm: NSR (12/24/232299) CT interval: 0.18 seconds (12/24/232299) QRS: 0.08 seconds (12/24/23 2300) Pulses Right: Dorsalis Pedis +;Radial + (12/24/231936) Pulses Left: Dorsalis Pedis +;Radial + (12/24/231936) Edema Location: Lower extremities;Both (12/25/23 0500) Edema Assessment: +2 - Description (12/25/23 0500) Capillary Refill: 3 sec (12/25/23 0500) Additional Cardiac Information: Sinus Tach GI/: GI WNL: WNL - within normal limits (12/24/23 1136) Abdomen: Soft;Non-distended;Bowel sounds present all quadrants (12/24/23 113) WNL: WNL - within normal limits (12/24/23 113) Urine Description: Clear;Yellow (12/24/23 1729) Additional GI/ Information: Voided 0636 Integumentary: Integumentary WNL: X - Exceptions to WNL as documented below (12/25/23 0500) Skin Description: Dry;Warm (12/25/23 0500) Skin Color: Flesh Tone (12/25/23 0500) Skin Lesion: Other - Describe (see below) (12/24/23 193) Interventions: Other - Describe (skin barrier) (12/22/23 2100) Mark Score (auto-calculation): 19 (12/25/23 0500) Skin Breakdown: No (12/22/23 1625) Skin Breakdown (including Red, Non-Blanchable Areas) Present on Admission?: No (12/21/232147) Additional Integumentary Information: Restraints: No orders of the defined types were placed in this encounter. Lines: Peripheral Line Right Antecubital (Active) Number of days: 14 Peripheral Line Lower;Posterior;Right Arm 20 Gauge (Active) Status Capped/Locked;Alcohol disinfectant cap;Flushes easily;Positive blood return 12/25/23538 Tubing Changed N/A 12/25/23538 Phlebitis Scale 0 12/25/23538 Infiltration Scale 0 12/25/23538 Site Description (Other) Without redness, swelling or drainage 12/25/23538 Site Intervention Flushed;Tissue adhesive 12/25/23538 Dressing Assessment Dressing clean, dry, and intact;Transparent dressing;Occlusive 12/25/23538 Dressing Intervention Applied 12/25/23538 Dressing Change Due 01/01/24 12/25/23538 Number of days: 0 Labs: Labs This Encounter BASIC METABOLIC PANEL - Abnormal; Notable for the following components: Result Value Ref Range Creatinine 1.3 0.6 - 1.2 mg/dL Sodium 132 135 - 146 mmol/L Chloride 97 98 - 107 mmol/L Calcium 8.0 8.4 - 10.2 mg/dL All other components within normal limits PHOSPHORUS - Abnormal; Notable for the following components: Phosphorus 2.3 2.5 - 4.8 mg/dL All other components within normal limits HEPATIC FUNCTION PANEL - Abnormal; Notable for the following components: Albumin 2.4 3.8 - 5.0 g/dL AST 110 10 - 50 U/L Alkaline Phosphatase 276 35 - 130 U/L ALT 105 10 - 50 U/L All other components within normal limits PROCALCITONIN - Abnormal; Notable for the following components: Procalcitonin 0.26 <0.10 ng/mL All other components within normal limits Narrative: Less than 0.5 ng/mL: Low risk for progression to sepsis. Review patients condition for localized infections. 0.5 to 2.0 ng/mL: Intermediate risk for progresion to sepsis. Review underlying conditions. Recommend repeat PCT after 6 hours has elapsed. Greater than 2.0 ng/mL: high risk for progression to sepsis unless other causes are known. BLOOD GAS, VENOUS - Abnormal; Notable for the following components: pH, Venous 7.460 7.320 - 7.430 units pCO2, Venous 37.9 40.0 - 60.0 mmHg Base Excess, Venous 3.0 -2.0 - 2.0 mmol/L HGB 6.1 14.0 - 16.8 g/dL Carboxyhemoglobin, Whole Blood 2.0 <=1.5 % total Hgb All other components within normal limits Narrative: Spoke with Nursing staff to confirm no contamination APTT - Abnormal; Notable for the following components: aPTT 41 21 - 38 seconds All other components within normal limits Narrative: Anticoagulation may affect testing. Refer to [facility] Test Catalog for a listof effects. CBC - Abnormal; Notable for the following components: WBC 14.95 4.00 - 10.80 K/uL HGB 7.0 14.0 - 16.8 g/dL HCT 21.2 40.0 - 48.4 % PLT 643 140 - 400 K/uL All other components within normal limits DIFFERENTIAL, AUTOMATED - Abnormal; Notable for the following components: WBC 14.95 4.00 - 10.80 K/uL Lymphocytes % 12.4 18.0 - 42.0 % Immature Granulocytes % 2.8 0.0 - 2.0 % Absolute Neutrophils 11.20 1.80 - 7.70 K/uL Absolute Immature Granulocytes 0.42 0.00 - 0.20 K/uL All other components within normal limits URINALYSIS, REFLEX TO CULTURE - Abnormal; Notable for the following components: Clarity, Urine Slightly Cloudy Clear Blood, Urine Trace Negative Protein, Urine 30 Negative mg/dL Esterase, Urine Moderate Negative RBC, Urine 3-5 0 - 2 /HPF WBC, Urine 20-29 0 - 2 /HPF WBC Clumps, Urine Present None /HPF Yeast, Urine Present None /HPF All other components within normal limits MRSA SCREEN, PCR - Abnormal; Notable for the following components: MRSA PCR Result Positive Negative All other components within normal limits CBC - Abnormal; Notable for the following components: WBC 13.85 4.00 - 10.80 K/uL HGB 6.6 14.0 - 16.8 g/dL HCT 20.7 40.0 - 48.4 % PLT 590 140 - 400 K/uL All other components within normal limits BASIC METABOLIC PANEL - Abnormal; Notable for the following components: Creatinine 1.4 0.6 - 1.2 mg/dL Sodium 131 135 - 146 mmol/L Chloride 97 98 - 107 mmol/L Glucose 124 70 - 120 mg/dL Calcium 8.2 8.4 - 10.2 mg/dL All other components within normal limits CBC - Abnormal; Notable for the following components: WBC 14.10 4.00 - 10.80 K/uL HGB 7.5 14.0 - 16.8 g/dL HCT 23.2 40.0 - 48.4 % PLT 609 140 - 400 K/uL All other components within normal limits CULTURE, TISSUE, AEROBIC AND ANAEROBIC - Abnormal; Notable for the following components: Culture Growth Few Staphylococcus aureus Stain Description Few Polymorphonuclear leukocytes Stain Description Many Gram positive cocci All other components within normal limits Narrative: The specimen used for this testing had ID confirmed via the Specimen Identification Confirmation/Waiver process. No anaerobic growth. CBC - Abnormal; Notable for the following components: WBC 14.20 4.00 - 10.80 K/uL HGB 7.8 14.0 - 16.8 g/dL HCT 24.9 40.0 - 48.4 % PLT 656 140 - 400 K/uL All other components within normal limits CBC - Abnormal; Notable for the following components: WBC 13.58 4.00 - 10.80 K/uL HGB 7.4 14.0 - 16.8 g/dL HCT 22.5 40.0 - 48.4 % PLT 638 140 - 400 K/uL All other components within normal limits RENAL FUNCTION PANEL - Abnormal; Notable for the following components: Creatinine 1.5 0.6 - 1.2 mg/dL Estimated Glomerular Filtration Rate 55 >=60 mL/min Sodium 133 135 - 146 mmol/L Glucose 176 70 - 120 mg/dL Calcium 8.0 8.4 - 10.2 mg/dL Albumin 2.5 3.8 - 5.0 g/dL All other components within normal limits HEPARIN, UNFRACTIONATED - Abnormal; Notable for the following components: Heparin, Unfractionated 0.13 <0.10 IU/mL All other components within normal limits HEPARIN, UNFRACTIONATED - Abnormal; Notable for the following components: Heparin, Unfractionated 0.29 <0.10 IU/mL All other components within normal limits HEPARIN, UNFRACTIONATED - Abnormal; Notable for the following components: Heparin, Unfractionated 0.40 <0.10 IU/mL All other components within normal limits CBC - Abnormal; Notable for the following components: WBC 12.35 4.00 - 10.80 K/uL HGB 6.6 14.0 - 16.8 g/dL HCT 20.7 40.0 - 48.4 % PLT 549 140 - 400 K/uL All other components within normal limits RENAL FUNCTION PANEL - Abnormal; Notable for the following components: Creatinine 2.0 0.6 - 1.2 mg/dL Estimated Glomerular Filtration Rate 39 >=60 mL/min Sodium 129 135 - 146 mmol/L Chloride 93 98 - 107 mmol/L Glucose 168 70 - 120 mg/dL Calcium 7.9 8.4 - 10.2 mg/dL Albumin 2.6 3.8 - 5.0 g/dL All other components within normal limits HEPARIN, UNFRACTIONATED - Abnormal; Notable for the following components: Heparin, Unfractionated 0.29 <0.10 IU/mL All other components within normal limits CBC - Abnormal; Notable for the following components: WBC 13.07 4.00 - 10.80 K/uL HGB 8.5 14.0 - 16.8 g/dL HCT 26.6 40.0 - 48.4 % PLT 685 140 - 400 K/uL All other components within normal limits HEPARIN, UNFRACTIONATED - Abnormal; Notable for the following components: Heparin, Unfractionated 0.36 <0.10 IU/mL All other components within normal limits HEPARIN, UNFRACTIONATED - Abnormal; Notable for the following components: Heparin, Unfractionated 0.32 <0.10 IU/mL All other components within normal limits CBC - Abnormal; Notable for the following components: WBC 12.41 4.00 - 10.80 K/uL HGB 8.2 14.0 - 16.8 g/dL HCT 25.3 40.0 - 48.4 % PLT 660 140 - 400 K/uL All other components within normal limits RENAL FUNCTION PANEL - Abnormal; Notable for the following components: Creatinine 2.5 0.6 - 1.2 mg/dL Estimated Glomerular Filtration Rate 29 >=60 mL/min Sodium 129 135 - 146 mmol/L Potassium 3.4 3.5 - 5.1 mmol/L Chloride 93 98 - 107 mmol/L Glucose 134 70 - 120 mg/dL Calcium 8.1 8.4 - 10.2 mg/dL Albumin 2.5 3.8 - 5.0 g/dL All other components within normal limits MAGNESIUM - Normal LACTATE - Normal TROPONIN T, HIGH SENSITIVITY - Normal PT INR - Normal Narrative: Warfarin Therapy INR: 2.0-3.0 conventional anticoagulation INR: 2.5-3.5 high intensity anticoagulation HEPARIN, UNFRACTIONATED - Normal VANCOMYCIN RANDOM - Normal PT INR - Normal Narrative: Warfarin Therapy INR: 2.0-3.0 conventional anticoagulation INR: 2.5-3.5 high intensity anticoagulation HEPARIN, UNFRACTIONATED - Normal VANCOMYCIN RANDOM - Normal HEPARIN, UNFRACTIONATED - Normal HEPARIN, UNFRACTIONATED - Normal PT INR - Normal Narrative: Warfarin Therapy INR: 2.0-3.0 conventional anticoagulation INR: 2.5-3.5 high intensity anticoagulation VANCOMYCIN RANDOM - Normal HEPARIN, UNFRACTIONATED - Normal PT INR - Normal Narrative: Warfarin Therapy INR: 2.0-3.0 conventional anticoagulation INR: 2.5-3.5 high intensity anticoagulation VANCOMYCIN RANDOM - Normal PT INR - Normal Narrative: Warfarin Therapy INR: 2.0-3.0 conventional anticoagulation INR: 2.5-3.5 high intensity anticoagulation HEPARIN, UNFRACTIONATED - Normal GLUCOSE METER, POINT OF CARE - Normal CBC WITH WBC DIFFERENTIAL Narrative: The following orders were created for panel order CBC WITH WBC DIFFERENTIAL. Procedure Abnormality Status --------- ------ CBC[[id number]] Abnormal Final result DIFFERENTIAL, AUTOMATED[[id number]] Abnormal Final result Please view results for these tests on the individual orders. TYPE AND SCREEN CULTURE, BLOOD CULTURE, BLOOD URINALYSIS, REFLEX TO CULTURE (NOT FOR NEUTROPENIC PATIENTS) Narrative: The following orders were created for panel order URINALYSIS, REFLEX TO CULTURE (NOT FOR NEUTROPENIC PATIENTS). Procedure Abnormality Status --------- ------ URINALYSIS, REFLEX TO CU...[[id number]] Final result URINALYSIS, REFLEX TO CU...[[id number]] Abnormal Final result Please view results for these tests on the individual orders. URINALYSIS, REFLEX TO CULTURE (CUP ONLY) ABO/RH CULTURE, URINE, QUANTITATIVE CULTURE,FUNGUS,NON-DERM Narrative: The specimen used for this testing had ID confirmed via the Specimen Identification Confirmation/Waiver process. CULTURE, AFB Narrative: The specimen used for this testing had ID confirmed via the Specimen Identification Confirmation/Waiver process. TYPE AND SCREEN CULTURE, WOUND, DEEP, AEROBIC AND ANAEROBIC CULTURE, AFB CULTURE,FUNGUS,NON-DERM SURGICAL PATHOLOGY PREPARE PACKED RED BLOOD CELLS PREPARE PACKED RED BLOOD CELLS PREPARE PACKED RED BLOOD CELLS TRANSFUSE PACKED RED BLOOD CELLS TRANSFUSE PACKED RED BLOOD CELLS Diet: Orders Placed This Encounter Procedures NPO After 2400 Except Meds Additional Diet Information: NPO since midnight Intake and Output: Intake/Output Summary (Last 24 hours) at 12/25/2023 0818 Last data filed at 12/25/2023 0636 Gross per 24 hour Intake 1680.57 ml Output 525 ml Net 1155.57 ml Patient Belongings and Home Medications Patient Belongings at Bedside Belongings at Bedside: Clothing;Electronic devices (12/21/23 2147) Clothing: Pants (12/21/232147) 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 No * Ramón Urban RN - 12/25/2023 2:46 AM EDT Provider made aware of the patient's unusual behavior and agitation. The patient continues to disrupt telemetry and has dislodged one of his IV sites. The patient is being monitored closely and multiple attempts have been made to educate the patient with no success. * Ramón Urban RN - 12/24/2023 11:45 PM EDT The patient is moving in the bed and continues to remove his telemetry leads and has dislodged his IV site. The patient has been encouraged to remain calm and has been provided with medication to help him relax. * Ramón Urban RN - 12/24/2023 10:35 PM EDT The patient is very anxious concerning the surgery, he cannot get comfortable and keeps removing his gown and telemetry leads, * Jolie Jarvis RN - 12/22/2023 8:23 PM EDT Dual Licensed Skin Assessment completed by Jolie Vallejo and Whit Torres. The patient is/has a N/A Skin Breakdown (includes non blanchable erythema): Yes. Surgical incision site to right lateral knee Wound Type: Skin tear, location Sacrum -scab/scratch Wound Ostomy Nurse Notified: No - wound ostomy not needed at this time Nursing interventions: Cleansed, barrier cream applied * Neha Barrera NA - 12/22/2023 8:11 PM EDT Post Anesthesia Care Unit Transport Note [address] [address] Dept[address] Rogelio Barrera Transported from [facility] to : [facility] Time: 2010 Care of patient transferred to: Jolie VASQUEZ Transported via: Bed Belongings with Patient: NO Pulse : 111 Temp : 98.1 BP : 107/60 Respirations : 18 Pulse Ox : 91 O2 : 2L SCDS: On but not activated/no machine * Shandra Craft RN - 12/22/2023 7:30 PM EDT [facility] TO IP HANDOFF COMMUNICATION NOTE [address] [address] Name: Rogelio Barrera AGE: [id number] year old [place] [facility] [place] Date: 12/22/2023 Attention to: Whit West RN Report from: Shandra Craft RN Patient arriving via: Bed Time of call: 7:30 PM Phone Ext: [phone] Reason for SBAR (Situation, Background, Assessment, Recommendation) handoff: OR Sending to: [facility] Emotional/Personal Events & Special Needs: none Prescriptions in chart: No Code Status: Full Code Safety Concerns: no safety concerns identified Allergies: Patient has no known allergies. PMH: Past Medical History: Diagnosis Date Allergic rhinitis BMI 35.0-35.9,adult DDD (degenerative disc disease), lumbosacral Dyslipidemia, goal LDL below 130 Encounter for hepatitis C screening test for low risk patient 11/10/2021 negative Essential hypertension with goal blood pressure less than 140/90 Family history of lung cancer Sister Obstructive sleep apnea 12/09/2018 Dr Bell [facility]: Past Surgical History: Procedure Laterality Date COLONOSCOPY W/ LESION REMOVAL, SNARE 03/04/2019 rectal polyp at 10 cm REMOVAL OF ADENOIDS, UNDER AGE 13 Isolation: Isolation: Procedure: Bx right femur Type of Anesthesia: General endotracheal anesthesia IV intake: 800 mL EBL: OR: min mL PACU: 0 mL Urine output: OR 0 mL PACU 0 mL IUBC (Duffy): Incision location: right lateral thigh Dressing location: Gauze and tegaderm Time of last skin assessment: post op Pressure injuries or areas of concern: none Lines: Peripheral Line Right Antecubital (Active) Number of days: 11 Peripheral Line Left Arm 20 Gauge (Active) Status Capped/Locked;Alcohol disinfectant cap 12/22/231904 Tubing Changed No 12/22/231619 Phlebitis Scale 0 12/22/23 162 Infiltration Scale 0 12/22/23 162 Site Description (Other) Without redness, swelling or drainage 12/22/23 162 Site Intervention None required 12/22/23 162 Dressing Assessment Dressing clean, dry, and intact 12/22/23 162 Dressing Intervention None required 12/22/23 1620 Number of days: 1 Peripheral Line Left Arm 18 Gauge (Active) Status Fluids infusing 12/22/231904 Tubing Changed No 12/22/231904 Phlebitis Scale 0 12/22/231904 Infiltration Scale 0 12/22/231904 Site Description (Other) Without redness, swelling or drainage 12/22/23 190 Site Intervention None required 12/22/23 190 Dressing Assessment Dressing clean, dry, and intact 12/22/23 190 Dressing Intervention None required 12/22/23 190 Number of days: 0 Vital Signs: BP: 113/51 (12/22/231919) Temp: 37 C (98.6 F) (12/22/231904) Pulse: 73 (12/22/231919) Resp: 15 (12/22/231919) SpO2: 100 % (12/22/231919) O2 flow rate: 10 L/MIN (12/22/231919) Glucose (Bedside): 108 (12/22/23 1405) Time of last pain medication: 1858 Dilaudid Time of last antibiotic: Zosyn infusing Time of last antiemetic: 1817 Zofran INTERNET PROGRAMMER: no Drips: no Neurological: Speech: Clear (12/22/231624) Level of Consciousness: Alert (12/22/231929) RUE Motor Strength: 5-Active movement with full resistance (12/22/231929) RLE Motor Strength: 5-Active movement with full resistance (12/22/231929) LUE Motor Strength: 5-Active movement with full resistance (12/22/231929) LLE Motor Strength: 5-Active movement with full resistance (12/22/231929) Coma Score: 15 (12/22/231929) Respiratory: Respiratory WNL: WNL- within normal limits (12/22/231929) Depth/Rhythm: Regular (12/22/231624) Dyspnea Occurance: None (12/22/231624) Effort: Unlabored (12/22/231624) Oxygen therapy/ Mechanical vent Supplemental O2 Delivery: Non-rebreather Mask (12/22/231919) O2 flow rate: 10 L/MIN (12/22/231919) Cardiac: Cardiovascular WNL: X - Exceptions to WNL as documented below (12/22/231929) Heart Sounds: S1;S2 (12/22/231624) Rhythm: Regular;NSR (12/22/231624) CT interval: 0.17 seconds (12/21/232319) QRS: 0.13 seconds (12/21/232319) Pulses Right: Dorsalis Pedis +;Radial + (12/22/231624) Pulses Left: Dorsalis Pedis +;Radial + (12/22/231624) Edema Location: Lower extremities;Right (12/22/231929) Edema Assessment: +3 - Description (12/22/231929) Capillary Refill: 3 sec (12/22/231624) GI: GI WNL: WNL - within normal limits (12/22/231929) Abdomen: Soft;Non-distended (12/22/231624) : WNL: (no urine to assess) (12/22/231929) Due to Void: 0105 Integumentary:Integumentary WNL: X - Exceptions to WNL as documented below (12/22/231929) Skin Description: Warm;Dry (12/22/23 1856) Skin Lesion: Other - Describe (see below) (12/22/231929) Mark Score (auto-calculation): 18 (12/21/232147) Family updated on transfer: no Additional Assessment Information: none * Shandra Craft RN - 12/22/2023 7:30 PM EDT Dual Licensed Skin Assessment completed by myself and Jorge Alba RN. The patient is/has a N/A Skin Breakdown (includes non blanchable erythema): Yes - Surgical/Procedural changes only. * Geneva Mcduffie RN - 12/22/2023 4:37 PM EDT Dual Licensed Skin Assessment completed by Geneva VASQUEZ and Manda VASQUEZ. The patient is/has a N/A Skin Breakdown (includes non blanchable erythema): No * Vannesa Abbott RN - 12/22/2023 3:57 PM EDT Hand-Off - Nurse Communication Note Name: Rogelio Barrera [place] [facility] [id number] Date: 12/22/2023 Time: 3:57 PM Sending to: PACU Safety Concerns: None Allergies: Patient has no known allergies. Code Status: Full Code Isolation: None None but has MRSA in knee Isolation flowsheet: Special Needs: Special Needs comments: Attention to: PACU Report from: Vannesa Abbott RN Phone extension: [phone] Patient arriving via: Bed Reason for SBAR handoff: OR Situation/Background Admission date: 12/21/2023 Patient Service: Med K [[id number]] Attending Provider: Ed Melissa MD Admitting diagnosis: Sepsis (HCC) MRSA bacteremia Chief Complaint: No chief complaint on file. Problem list: Principal Problem: Sepsis (HCC) Active Problems: Dyslipidemia, goal LDL below 130 Obstructive sleep apnea DICK (acute kidney injury) (HCC) Cavitary lesion of lung MRSA bacteremia Anemia Lytic bone lesion of femur Resolved Problems: * No resolved hospital problems. * Level of Care: Med Surg [3] Assessment Vital Signs: BP: 119/52 (12/22/23 152) Temp: (!) 38.4 C (101.1 F) (12/22/23 152) Pulse: 75 (12/22/231520) Resp: 17 (12/22/231520) SpO2: 97 % (12/22/231520) Glucose (Bedside): 108 (12/22/23 1405) Weight: 87.5 kg (193 lb) (12/22/23599) Height: 167.6 cm (5' 6") (12/21/232147) Fall Scale: Fall Score: 45 (12/21/232147) Fall Interventions: Ambulation assist device present;Bed at low level;Bed alarm on;Yellow armband applied/intact and on patient;Fall risk sign outside room;Floor free of clutter;Non-skid foot covering on;Walk path free of obstacles (12/21/232147) Neurological: [place] Coma Scale Eyes Open: Spontaneous (12/22/23 1056) Best Verbal Response: Verbally appropriate for age (12/22/23 1056) Best Motor Response: Obeys commands appropriate for age (12/22/23 1056) Coma Score: 15 (12/22/23 1056) Additional Neurological Information: wnl Respiratory: Respiratory WNL: WNL- within normal limits (12/22/23 08) Oxygen therapy/ Mechanical vent Supplemental O2 Delivery: Room Air, None (12/22/231520) Additional Respiratory Information: wnl Cardiac: Cardiovascular WNL: WNL - within normal limits (12/22/23 08) Heart Sounds: S1;S2 (12/21/230) Rhythm: NSR (12/22/23799) CT interval: 0.17 seconds (12/21/232319) QRS: 0.13 seconds (12/21/232319) Pulses Right: Dorsalis Pedis + (12/22/23799) Pulses Left: Dorsalis Pedis + (12/22/23799) Edema Location: Lower extremities;Both (12/22/23799) Edema Assessment: +2 - Description (12/22/23799) Capillary Refill: 3 sec (12/22/23799) Additional Cardiac Information: wnl GI/: GI WNL: WNL - within normal limits (12/22/23799) WNL: WNL - within normal limits (12/21/232319) Additional GI/ Information: wnl Integumentary: Integumentary WNL: WNL - within normal limits (12/22/23799) Mark Score (auto-calculation): 18 (12/21/232147) Skin Breakdown (including Red, Non-Blanchable Areas) Present on Admission?: No (12/21/232147) Additional Integumentary Information: no change Restraints: No orders of the defined types were placed in this encounter. Lines: Peripheral Line Right Antecubital (Active) Number of days: 11 Peripheral Line Left Arm 20 Gauge (Active) Status Fluids infusing 12/22/23799 Phlebitis Scale 0 12/22/23799 Infiltration Scale 0 12/22/23799 Site Description (Other) Without redness, swelling or drainage 12/22/23799 Site Intervention Flushed 12/22/23799 Dressing Assessment Dressing clean, dry, and intact 12/22/23799 Dressing Intervention None required 12/22/23799 Number of days: 1 Peripheral Line Left Arm 18 Gauge (Active) Status Fluids infusing 12/22/23799 Phlebitis Scale 0 12/22/23799 Infiltration Scale 0 12/22/23799 Site Description (Other) Without redness, swelling or drainage 12/22/23799 Site Intervention None required 12/22/23799 Dressing Assessment Dressing clean, dry, and intact 12/22/23799 Dressing Intervention None required 12/22/23799 Number of days: 0 Labs: Labs This Encounter BASIC METABOLIC PANEL - Abnormal; Notable for the following components: Result Value Ref Range Creatinine 1.3 0.6 - 1.2 mg/dL Sodium 132 135 - 146 mmol/L Chloride 97 98 - 107 mmol/L Calcium 8.0 8.4 - 10.2 mg/dL All other components within normal limits PHOSPHORUS - Abnormal; Notable for the following components: Phosphorus 2.3 2.5 - 4.8 mg/dL All other components within normal limits HEPATIC FUNCTION PANEL - Abnormal; Notable for the following components: Albumin 2.4 3.8 - 5.0 g/dL AST 110 10 - 50 U/L Alkaline Phosphatase 276 35 - 130 U/L ALT 105 10 - 50 U/L All other components within normal limits PROCALCITONIN - Abnormal; Notable for the following components: Procalcitonin 0.26 <0.10 ng/mL All other components within normal limits Narrative: Less than 0.5 ng/mL: Low risk for progression to sepsis. Review patients condition for localized infections. 0.5 to 2.0 ng/mL: Intermediate risk for progresion to sepsis. Review underlying conditions. Recommend repeat PCT after 6 hours has elapsed. Greater than 2.0 ng/mL: high risk for progression to sepsis unless other causes are known. BLOOD GAS, VENOUS - Abnormal; Notable for the following components: pH, Venous 7.460 7.320 - 7.430 units pCO2, Venous 37.9 40.0 - 60.0 mmHg Base Excess, Venous 3.0 -2.0 - 2.0 mmol/L HGB 6.1 14.0 - 16.8 g/dL Carboxyhemoglobin, Whole Blood 2.0 <=1.5 % total Hgb All other components within normal limits Narrative: Spoke with Nursing staff to confirm no contamination APTT - Abnormal; Notable for the following components: aPTT 41 21 - 38 seconds All other components within normal limits Narrative: Anticoagulation may affect testing. Refer to [facility] Test Catalog for a listof effects. CBC - Abnormal; Notable for the following components: WBC 14.95 4.00 - 10.80 K/uL HGB 7.0 14.0 - 16.8 g/dL HCT 21.2 40.0 - 48.4 % PLT 643 140 - 400 K/uL All other components within normal limits DIFFERENTIAL, AUTOMATED - Abnormal; Notable for the following components: WBC 14.95 4.00 - 10.80 K/uL Lymphocytes % 12.4 18.0 - 42.0 % Immature Granulocytes % 2.8 0.0 - 2.0 % Absolute Neutrophils 11.20 1.80 - 7.70 K/uL Absolute Immature Granulocytes 0.42 0.00 - 0.20 K/uL All other components within normal limits URINALYSIS, REFLEX TO CULTURE - Abnormal; Notable for the following components: Clarity, Urine Slightly Cloudy Clear Blood, Urine Trace Negative Protein, Urine 30 Negative mg/dL Esterase, Urine Moderate Negative RBC, Urine 3-5 0 - 2 /HPF WBC, Urine 20-29 0 - 2 /HPF WBC Clumps, Urine Present None /HPF Yeast, Urine Present None /HPF All other components within normal limits MRSA SCREEN, PCR - Abnormal; Notable for the following components: MRSA PCR Result Positive Negative All other components within normal limits CBC - Abnormal; Notable for the following components: WBC 13.85 4.00 - 10.80 K/uL HGB 6.6 14.0 - 16.8 g/dL HCT 20.7 40.0 - 48.4 % PLT 590 140 - 400 K/uL All other components within normal limits BASIC METABOLIC PANEL - Abnormal; Notable for the following components: Creatinine 1.4 0.6 - 1.2 mg/dL Sodium 131 135 - 146 mmol/L Chloride 97 98 - 107 mmol/L Glucose 124 70 - 120 mg/dL Calcium 8.2 8.4 - 10.2 mg/dL All other components within normal limits CBC - Abnormal; Notable for the following components: WBC 14.10 4.00 - 10.80 K/uL HGB 7.5 14.0 - 16.8 g/dL HCT 23.2 40.0 - 48.4 % PLT 609 140 - 400 K/uL All other components within normal limits MAGNESIUM - Normal LACTATE - Normal TROPONIN T, HIGH SENSITIVITY - Normal PT INR - Normal Narrative: Warfarin Therapy INR: 2.0-3.0 conventional anticoagulation INR: 2.5-3.5 high intensity anticoagulation HEPARIN, UNFRACTIONATED - Normal VANCOMYCIN RANDOM - Normal PT INR - Normal Narrative: Warfarin Therapy INR: 2.0-3.0 conventional anticoagulation INR: 2.5-3.5 high intensity anticoagulation HEPARIN, UNFRACTIONATED - Normal VANCOMYCIN RANDOM - Normal GLUCOSE METER, POINT OF CARE - Normal CBC WITH WBC DIFFERENTIAL Narrative: The following orders were created for panel order CBC WITH WBC DIFFERENTIAL. Procedure Abnormality Status --------- ------ CBC[[id number]] Abnormal Final result DIFFERENTIAL, AUTOMATED[[id number]] Abnormal Final result Please view results for these tests on the individual orders. TYPE AND SCREEN CULTURE, BLOOD CULTURE, BLOOD URINALYSIS, REFLEX TO CULTURE (NOT FOR NEUTROPENIC PATIENTS) Narrative: The following orders were created for panel order URINALYSIS, REFLEX TO CULTURE (NOT FOR NEUTROPENIC PATIENTS). Procedure Abnormality Status --------- ------ URINALYSIS, REFLEX TO CU...[[id number]] Final result URINALYSIS, REFLEX TO CU...[[id number]] Abnormal Final result Please view results for these tests on the individual orders. URINALYSIS, REFLEX TO CULTURE (CUP ONLY) ABO/RH CULTURE, URINE, QUANTITATIVE HEPARIN, UNFRACTIONATED CULTURE, WOUND, DEEP, AEROBIC AND ANAEROBIC CULTURE, AFB CULTURE,FUNGUS,NON-DERM PREPARE PACKED RED BLOOD CELLS TRANSFUSE PACKED RED BLOOD CELLS Diet: Orders Placed This Encounter Procedures NPO After 2400 Except Meds Additional Diet Information: NPO Intake and Output: Intake/Output Summary (Last 24 hours) at 12/22/2023 1557 Last data filed at 12/22/2023 1400 Gross per 24 hour Intake 1845.63 ml Output 1275 ml Net 570.63 ml Patient Belongings and Home Medications Patient Belongings at Bedside Belongings at Bedside: Clothing;Electronic devices (12/21/232147) Clothing: Pants (12/21/232147) 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 Yes * Jolie Jarvis RN - 12/21/2023 10:05 PM EDT Dual Licensed Skin Assessment completed by Jolie Vallejo and Roni Lynch. The patient is/has a N/A Skin Breakdown (includes non blanchable erythema): No documented in this encounter OR Notes * OR Surgeon - Sebas Sheridan MD - 12/25/2023 1:17 PM EDT [facility] [address] [facility] [address] [address] OPERATIVE REPORT Name: Rogelio Barrera Date: 12/25/2023 Time: 12:11 PM Location: [place] [facility] [place]: Orthopedic Surgery Date of Operation: 12/25/2023 Pre-op Diagnosis: 1) Osteomyelitis of right distal femur 2) Possible tumor, right distal femur Post-op Diagnosis: Same Operation: Saucerization / bone debridement as treatment for suspected infection of right distal femur. Surgeon: Sebas Sheridan MD Assistants: Sincere Camara MD & Edy Quintero MD Anesthesia: General & peripheral nerve block & local anesthesia Drains: 19 Duy drain, placed deep to vastus medialis, right thigh. Estimated Blood Loss: 300 ml. IV Fluids: 1400 ml. plasmalyte Urine Output: None. Specimens/Disposition: ID Type Source Tests Collected by Time Destination 1 : Right Femur Bone Tissue Femur, Right SURGICAL PATHOLOGY Sebas Sheridan MD 12/25/2023 1152 A : Right Femur bone Bone Femur, Right CULTURE, TISSUE, AEROBIC AND ANAEROBIC Sebas Sheridan MD 12/25/2023 1119 B : Right Femur bone Bone Femur, Right CULTURE, TISSUE, AEROBIC AND ANAEROBIC Sebas Sheridan MD 12/25/2023 1120 Implants: Ludlow simplex + tobra cement (1 pack) was mixed with 4 grams of vancomycin to make 32 antibiotic beads. 17 of the 32 beads were implanted into the right distal femur. Implant Name Type Inv. Item Serial No. Desk Pen Set Assembler Lot No. LRB No. Used Action CEMENT ANTIBIOTIC BONE - [id number] - [id number] CEMENT ANTIBIOTIC BONE 6197-9-001 MOJGAN : ORTHOPAEDICS [id number] Right 1 Implanted Apparent Intraoperative Complications: NONE Patient Condition: stable Disposition: Post Anesthesia Care Unit Attestation: Dr. Sheridan was present and scrubbed for the suggs portions of the procedure Operative Indications and History: This is a 58-year-old male who has a past medical history significant for metabolic syndrome with aBMI of 35, dyslipidemia, hypertension, obstructive sleep apnea and degenerative disc disease of hislumbar spine. He was recently seen in the orthopedic clinic with a worsening right knee pain. Radiographs revealed no evidence of tumor but a subsequent MRI revealed an aggressive bone lesion of the distal femur. This was concerning for possible osteomyelitis. He then underwent a biopsy which was positive for MRSA. Shared decision-making was had with the patient and the patient consented to move forward with operative debridement and placement of antibiotic beads. The risks, benefits, complicati ons, treatment options, and expected outcomes were discussed with the patient and/or family in detail. The possibilities of reaction to medication, pulmonary aspiration, bleeding, recurrent infection, the need for additional procedures, failure to diagnose a condition, and creating a complication requiring transfusion or operation were discussed with the patient who freely signed the consent. Thepatient concurred with the proposed plan, giving informed consent. Description of procedure: Patient was seen in the preoperative area. The operation was once again explained to the patient and their family and they were appropriately marked. The patient was taken the operating room where they were once again identified and were given anesthesia. They were then prepped and draped in routine sterile orthopaedic fashion. A proper time-out was then held to once again to identify the patient and procedure. We began by marking our incision along the lateral aspect of the patient's distal femur. We incorporated this into the swash rosanna approach and went lateralparapatellar and incorporated the previous biopsy site. Prior to incision the tourniquet was placedup to 250 mmHg. A blade was used to make a longitudinal incision through the skin and subcutaneous tissue along the marked incision site which measured to be approximately 12 cm. We then incised downto the ITB band which was incised in line with the incision. Elevated the vastus anteriorly. We coagulated any bleeders with electrocautery. We then placed our retractors along the distal femur. We then incised the periosteum in line with the biopsy site which we appreciated along the lateral aspect of the distal femur. After the periosteum was elevated we then used a bur to make 5x1.5 cm rectangular cortical window along the lateral aspect of the distal femur. We then took a biopsy of the dista l femur as well as cultures and these were sent for both pathology and cultures. We then thoroughlyirrigated the distal femur with normal saline as well as Dakin solution. We also used curettes and rongeurs to remove any of the necrotic and infected appearing tissue in the distal femur. We then also used pituitaries to make sure that we are capturing along the distal medial aspect of the femur. We thoroughly irrigated the femur once more and then we turned our attention to the proximal aspect of the our cortical window and femur. The tourniquet was taken down and bleeders were coagulated. Weused sequential reamers from a 6 mm Reamer to a 12 mm Reamer up to the midshaft of the femur. This was 1st done over a 2.5 mm wire and in the wire was removed and the 12 mm Reamer was passed to the midshaft of the femur. After we thoroughly reamed the femur as well as debrided any necrotic appearing or infected appearing tissue in the distal femur. Tourniquet was then placed back up. we then placed 17 antibiotic beads over a Prolene suture. 4 g of vancomycin were added to the antibiotic beads. The beads were placed within the distal femur through the cortical window. Radiographs were obtainedintraoperatively to verify the placement of the beads both on the AP as well as on the lateral. We then placed a 19 Tongan drain under the vastus. We then closed the ITB band with 0 PDS and then the subcutaneous tissue with a 2-0 PDS and then the skin with nylon suture. The drain was then sutured in. Sterile dressings were applied. Drapes were taken down. All needle, sharps, sponge and lap pad counts were correct. The patient tolerated the procedure well and was then transferred onto the stretcher and emerged from anesthesia without issue. The patientwas taken to the recovery area in stable condition sustaining no known intraoperative complications. Post-Operative Plan: The patient may be toe-touch weight-bearing to the affected right lower extremity. Plan to see the patient back in approximately 1 week for a wound check and possible drain removal at that time. Sutures to remain in place for approximately 2-3 weeks. Antibiotic recommendations per Infectious Disease. Pathology and cultures taken at the OR will be followed. DVT prophylaxis perprimary team recommend discharge at least 30 days of DVT prophylaxis postop. No immediate additional surgery during this admission required unless the patient acutely worsens or pathology and cultures reveal anything additional that may need further operative debridement/treatment. Attestations: I was present for the suggs portions of the case, that is, the bony debridement and the placement of the antibiotic beads. Postoperative pain management per Anesthesia for evaluation and placement of regional anesthesia toreduce the need for opioid pain medication. * Operative Report Brief - Sebas Sheridan MD - 12/25/2023 12:11 PM EDT [facility] [place] [address] OPERATIVE REPORT - BRIEF Name: Rogelio Barrera Date: 12/25/2023 Time: 12:11 PM Location: [facility] Service: Orthopedic Surgery Date of Operation: 12/25/2023 Pre-op Diagnosis: 1) Osteomyelitis of right distal femur 2) Possible tumor, right distal femur Post-op Diagnosis: Same Operation: Saucerization / bone debridement as treatment for suspected infection of right distal femur. Surgeon: Sebas Sheridan MD Assistants: Sincere Camara MD & Edy Quintero MD Anesthesia: General & peripheral nerve block & local anesthesia Drains: 19 Duy drain, placed deep to vastus medialis, right thigh. Estimated Blood Loss: 300 ml. IV Fluids: 1400 ml. plasmalyte Urine Output: None. Specimens/Disposition: ID Type Source Tests Collected by Time Destination 1 : Right Femur Bone Tissue Femur, Right SURGICAL PATHOLOGY Sebas Sheridan MD 12/25/2023 1152 A : Right Femur bone Bone Femur, Right CULTURE, TISSUE, AEROBIC AND ANAEROBIC Sebas Sheridan MD 12/25/2023 1119 B : Right Femur bone Bone Femur, Right CULTURE, TISSUE, AEROBIC AND ANAEROBIC Sebas Sheridan MD 12/25/2023 1120 Implants: Ludlow simplex + tobra cement (1 pack) was mixed with 4 grams of vancomycin to make 32 antibiotic beads. 17 of the 32 beads were implanted into the right distal femur. Implant Name Type Inv. Item Serial No. Desk Pen Set Assembler Lot No. LRB No. Used Action CEMENT ANTIBIOTIC BONE - [id number] - [id number] CEMENT ANTIBIOTIC BONE [id number] MOJGAN : ORTHOPAEDICS [id number] Right 1 Implanted Apparent Intraoperative Complications: NONE Patient Condition: stable Disposition: Post Anesthesia Care Unit Attestation: I was present and scrubbed for the suggs portions of the procedure Sebas Sheridan MD * OR Surgeon - Sebas Sheridan MD - 2023 7:27 AM EDT [place] [address] December 22, 2023. Location: OR Room 21 Service: Orthopaedics. Preoperative diagnosis: Right distal femoral bone lesion. Postoperative diagnosis: Same. Operation: Fluoroscopically guided percutaneous biopsy right femur. Surgeon: Sebas Sheridan MD. Assistants: None. Anesthesia: General endotracheal plus local. Findings: I attempted a frozen section of the tissue from the right distal femur. Because the tissue was entirely bony, a frozen section was not successful. Small portions of tissue demonstrated fibrotic marrow without evidence of significant inflammation. Touch preps demonstrated blood only. During the procedure, I saw no purulence from the specimens obtained from the right distal femur. The specimen was bloody. Specimen: Tissue was obtained from the right distal femur for frozen section, permanent section, and cultures. ID Type Source Tests Collected by Time Destination 1 : right distal femur Tissue Femur, Right SURGICAL PATHOLOGY Sebas Sheridan MD 12/22/20231813 2 : right distal femur #2 Tissue Femur, Right SURGICAL PATHOLOGY Sebas Sheridan MD 12/22/2023 182 A : right distal femur Tissue Femur, Right CULTURE,FUNGUS,NON-DERM, CULTURE, AFB, CULTURE, TISSUE, AEROBIC AND ANAEROBIC Sebas Sheridan MD 12/22/20231816 Estimated blood loss: 5 mL. IV fluids: 800 mL. Urine output: None. Drains: None. Implants: None. Complications: None apparent. Indications and history: Mr. Barrera is a 57-year-old man known to me to have a past medical history of metabolic syndrome (BMI equals 35, dyslipidemia, hypertension), obstructive sleep apnea, and lumbar degenerative disc disease. He was recently seen in the orthopaedic clinic with worsening right knee pain. He reports that his knee pain began this past winter. An x-ray obtained on November 05, 2023was interpreted as demonstrating no evidence of tumor. A subsequent MRI on December 11, 2023 with without contrast demonstrated an aggressive bone lesion of the right distal femur measuring approximately 22 cm in largest dimension. The radiology interpretation suggested a diagnosis of possible osteomyelitis. Personally, I also felt that neoplasm was possible. I recommended a timely biopsy and schedule the patient for biopsy on December 18, 2023. The patient did not present for biopsy as I understand he was admitted to [facility] for treatment of sepsis. The patient was then transferred to [facility] for a higher level of care. Upon transfer, I again recommended biopsythe right distal femur to help clarify the patient's diagnosis. After reviewing the risks, benefits, and alternatives of biopsy with the patient, he wished to proceed with surgical treatment. He had previously signed a written informed consent document. Description of the procedure: The patient was identified. The procedure was verified. Written informed consent was confirmed. The patient was placed in the supine position on the operating room table. General endotracheal anesthesia was induced. The right lower extremity was prepped and draped in asterile fashion. A formal time-out was observed. Preoperative antibiotics were ongoing (the patientwas receiving Zosyn at the time of the biopsy). I selected a site of biopsy over the lateral distal femur clinically and with radiographic/fluoroscopic guidance. I injected the area with local anesthesia. I performed a small longitudinal incision.I inserted an Osteo introducer (BISON, [facility]) through the small incisionand directed the Osteo introducer into the distal femur under fluoroscopic guidance in the AP and lateral planes. I then placed an 8 gauge bone biopsy needle through the Osteo introducer obtaining multiple cores of tissue. This tissue was sent to Surgical pathology for frozen section. With a percutaneous technique, I also obtained additional tissue from the right distal femur with apituitary rongeur. First, I removed the Osteo introducer from the lateral distal femur. I then inserted sequentially larger curettes to widen the entry hole/biopsy in the lateral femoral cortex. Then, I inserted a pituitary rongeur into the distal femur and obtained additional tissue for both culture and frozen/permanent section. Firm pressure was then held at the biopsy site until hemostasis was confirmed. I placed a single nylon suture into the skin to close the incision. A sterile dressing was applied to the lateral distalfemur. At the completion of the procedure the patient was permitted awaken from anesthesia. He was extubated and transferred to the perioperative care unit in satisfactory condition without apparent intraoperative complication. Postoperative condition: Stable Attestation: I performed the entire procedure myself. Sebas Sheridan MD Orthopedic Oncology [address] [place] [address] TEL: [phone] FAX: [phone] * Operative Report Brief - Inge Morin PA-C - 12/22/2023 6:56 PM EDT [facility] [address] [address] OPERATIVE REPORT - BRIEF Name: Rogelio Barrera Date: 12/22/2023 Time: 6:56 PM Location: [facility] Service: Orthopaedics Date of Operation: 12/22/2023 Pre-op Diagnosis: right femur lesion Post-op Diagnosis: same Operation: Biopsy right femur Surgeon: Sebas Sheridan MD Assistants: Edy Quintero MD Anesthesia: General endotracheal anesthesia Drains: none Estimated Blood Loss: 5 ml. IV Fluids: 800 ml. Urine Output: N/A Specimens/Disposition: ID Type Source Tests Collected by Time Destination 1 : right distal femur Tissue Femur, Right SURGICAL PATHOLOGY Sebas Sheridan MD 12/22/20231813 2 : right distal femur #2 Tissue Femur, Right SURGICAL PATHOLOGY Sebas Sheridan MD 12/22/20231819 A : right distal femur Tissue Femur, Right CULTURE,FUNGUS,NON-DERM, CULTURE, AFB, CULTURE, TISSUE, AEROBIC AND ANAEROBIC Sebas Sheridan MD 12/22/20231816 Apparent Intraoperative Complications: NONE Patient Condition: stable Disposition: Post Anesthesia Care Unit Attestation: Dr. Sheridan was present and scrubbed for the critical parts of the procedure documented in this encounter Miscellaneous Notes * Ancillary Progress Note - Alexandra Morgan, RN - 01/02/2024 11:47 AM EDT CARE MANAGEMENT - ADULT TRANSITION [place] [facility] [place] [address] Name: Rogelio Barrera Location: [facility] [place] H678/A Date: 01/02/2024 Time: 11:47 AM Risk Stratification Risk Stratification Psycho Social / Medical Concerns Identified: Adjustment to illness/injury;Multiple Comorbidities (12/22/23 1015) Readmission Risk Score: 18.36 (01/02/24 0800) AM-PAC Score With Stairs : 18 (01/01/24 2000) Caregiver Information Patient Contacts Name Relation Home Work Mobile Frieda Urbina [phone] CarlitosТатьяна Niece/Nephew [phone] Transition of Care Checklist Transition of Care Checklist (aka Readmission Risk Score) Discharge Disposition: Home w/Home Health (01/01/24 1001) Home or Home w/Home Health: High (18-33%) (01/01/24 1001) High (18-33%): Coordinate initial Home Health visit within 24 hours of discharge if medically necessary (12/28/23 1403) Narrative: medically stable for discharge. Spoke with Narcisa at [facility] and confirmed IV Abt SOC for tomorrows dose of IV antibiotic. Spoke with SARAH and confirmed IV Abt will be delivered to room by 1100. Anticipated Transportation at Discharge: family Patient/Family Expectations: home with services Transition Planning Transition Planning Transition Plan/Considerations: Discussed at Interdisciplinary Team / Boost Rounds (01/01/24 1001) [facility] Quality Rating provided to patient: Yes (12/22/23 1016) Repisodic Choice provided to patient: Yes (01/01/24 100) Transition plan discussed with - Enter name and phone #: with service at IDT rounds (01/01/24 1001) Insurance Considerations: N/A (01/01/24 1001) Referral to Community Agency : N/A (01/01/241000) Post-Acute Care needs identified and Referrals Completed: N/A (01/01/241000) Agency Choice Due to: Patient preference (01/01/241000) Additional Considerations: Reviewed IMM with patient and informed that patient is medically stable for discharge, however, mayhave 4 hours to consider whether they want to appeal discharge. patient waived waiting those 4 hours and wishes for discharge to occur prior to that time. Care Management will continue to monitor and assist with discharge planning needs * Care Plan - Merary Allen RN - 01/02/2024 5:17 AM EDT Clinical Goal(s): pt will remain free from falls during this shift (01/01/24802) Possible barriers to meeting goal(s)/advancing plan of care: Alteration in mobility Stability of the patient: Moderately stable - low risk of patient condition declining or worsening Summary regarding today's goal(s): Met: Rogelio is alert and oriented. Without complaints of pain overnight. Ambulates well OOB with walker, standby assist. No new changes overnight. Recommendations: Continue with plan of care. * Care Plan - Sia Steele RN - 01/01/2024 5:27 PM EDT Clinical Goal(s): pt will remain free from falls during this shift (01/01/24802) Possible barriers to meeting goal(s)/advancing plan of care: high fall risk, right femur infection Stability of the patient: Moderately stable - low risk of patient condition declining or worsening Summary regarding today's goal(s): Met: Patient remained free from falls during this shift. Recommendations: Continue to implement fall precautions, such as bed in lowest position, bed/chair alarms on, call gtz within reach, walker utilized. * Ancillary Progress Note - PocJeremiah roche Jr., RDN - 01/01/2024 11:58 AM EDT CLINICAL NUTRITION INTERVAL NOTE [address] [address] Name: Rogelio Barrera [place]: [facility] [place] H678/A Date: 01/01/2024 Time: 11:58 AM How patient was identified (select 2): date and Name Rogelio Barrera is being seen in follow up for follow-up. Last assessed by RDN on 12/28/23. Diet: Regular Oral Nutrition Supplement (ONS): Boost High Protein (1 cup provides 250 calories, 20 grams protein, 28 grams carbohydrate) BID Chart reviewed for pertinent nutrition information. Patient was seen at bedside earlier today. He appears to be in relatively good spirits, and denies any concerns r/t nutrition. Appetite is reported to be improved, and he indicates that he has been eating fairly well since last assessment. No issues tolerating diet are reported; no troubles with benoit wing/swallowing nor are any GI issues reported at this time. He is currently receiving Boost High Protein BID. He is requesting changes in flavors provided; as Boost High Protein is only available instrawberry flavor, will adjust order to meet pt's preferences. Current weight is 106.5 kg, which indicates no significant change in weight since last assessment. NUTRITION INTERVENTION/PLAN: Orders: Oral nutrition supplement adjusted Boost High Protein (1 cup provides 250 calories, 20 grams protein, 28 grams carbohydrate) daily Oral nutrition supplement added Boost (1 cup provides 240 calories, 10 grams protein, 37 grams carbohydrate) daily Clinical Nutrition Recommendations: Diet: Continue current nutrition plan Jeremiah Willoughby RDN, CSG, LDN Clinical Dietitian II Clinical Nutrition Services [facility] / * Ancillary Progress Note - Lynn Alexandre RN - 01/01/2024 10:06 AM EDT CARE MANAGEMENT - ADULT DISCHARGE NOTE [address] [address] Name: Rogelio Barrera Location: [facility] Date: 01/01/2024 Time: 10:08 AM The following coordination of care and discharge plan has been coordinated with the care team, patient, family and/or caregiver according to the patients needs and preferences. Discharge Final Discharge Plan (Complete only at time of Discharge): Home with Services (01/01/24 1006) Home Medical Care - Admitted Since 12/21/2023 Service Provider Selected Services Address Phone Fax Patient Preferred Last Updated [facility] [address] [place] [address] [phone] -- Josephine Rodriguez OSA 12/29/2023 1506 Internal Comment last updated by Josephine Rodriguez OSA 12/29/2023 1506 12/29/2023 Follow up. Spoke with Yolanda in Admissions, she offered SOC for 12/31/2023 or Thursday01/01/2024. CM Lynn Alexandre RN OK'D SOC. Home Medical Care - Episodes Includes Home Medical Care providers with selected services from the active episodes listed below Level 2 Complex Case Management Episode start date: 12/29/2023 There are no active outsourced providers for this episode. Narrative: As per service, patient anticipated to be medically stable to discharge tomorrow, Thursday, January 02, 2024. Hgb remains low this AM. Renal function panel remains abnormal. Remains on heparin infusion today. Would like to monitor one more day. CM reached out to Narcisa [phone] at [facility] to make aware. Able to see patient Thursday and revisit Thursday for IV abx. Per Narcisa, jessika this weekend. Will reach out to weekend CM to confirm discharge. Patient to discharge on IV abx. CM also reached out Angelica Cyr at [facility] to make aware of patient's discharge. Per Angelica, need weekend CMto confirm discharge for abx to be delivered to patient's room by 11am. No other CM needs identified. Patient instructed to reach out to CM with any questions or concerns. I have conducted the discharge appointment with the patient (ph: [phone]), Care Management, nursing, therapy, and provider on 01/01/2024 at 1027am . This discussion occurred bedside. Meds to beds offered: yes. The following post care is planned: Other [facility] for IV abx and [facility] . I encouraged the patient and/or family to call the hospital with any questions or concerns about the hospital admission. * Care Plan - Efra Jacques RN - 12/31/2023 3:49 PM EDT Problem: Safety & Risk for Injury Goal: Patient will remain free from injury. Outcome: Progressing Problem: Actual & Potential for Falls Goal: Patient will remain free of falls. Outcome: Progressing Clinical Goal(s): pt will remain free from falls till the end of the shift (12/31/23 0800) Possible barriers to meeting goal(s)/advancing plan of care: weakness after recent procedure, new environment Stability of the patient: Moderately stable - low risk of patient condition declining or worsening Summary regarding today's goal(s): Met: pt remained free from falls till the end of the shift Recommendations: pt continue implementing falls precautions * Ancillary Progress Note - Alexandra Viera COTA/L - 12/31/2023 10:30 AM EDT PROGRESS NOTE - Occupational Therapy [facility] [place] [address] Name: Rogelio Barrera Location: [facility] [place] H678/A Date: 12/31/2023 Time: 12:10 PM Rogelio Barrera is a 58 year old male. Patient Status: Inpatient Insurance: Payor: [facility] FAMILY Plan: [facility] FAMILY PLAN [place] Product Type: *No Product type* Patient Identified By: Name, ID Band and Date Diagnosis: sepsis/ MRSA/Bacteremia (12/31/231029) Status of treatment: Treatment completed (12/31/231029) Orders: OT evaluation and treatment (12/31/231029) Weight Bearing Status: Toe touch weight bearing;RLE (12/31/231029) Precautions: Safety;Skin;Isolation;Falls (12/31/231029) Total Treatment Time: 28 (12/31/231029) Pain: No complaints of pain Observations Consciousness: Alert (12/31/231029) Orientation: Oriented times 4 (12/31/231029) Psychosocial: Patient can communicate basic needs (12/31/231029) Sitting posture: Forward head;Rounded shoulders (12/31/231029) Standing posture: Forward head;Rounded shoulders (12/31/231029) Safety awareness: The Patient verbalizes insight of current deficits.;The Patient demonstrates carryover of insight during functional tasks. (12/31/231029) Other Findings Light touch sensation: LUE;RUE;Intact (12/28/23 114) Coordination: LUE;RUE;Intact (12/28/231144) Current Functional Status: Activities of Daily Living: Self Care Able to provide self care: Yes (12/31/231029) Grooming: Supervision (Please comment) (12/31/231029) Toileting: (duffy) (12/31/231029) Dressing Upper Body: Supervision (Please comment) (for gown) (12/31/231029) Lower Body: Not Tested (12/31/231029) Bathing Upper Body: Supervision (Please comment) (12/31/231029) Lower Body: Supervision (Please comment) (12/31/231029) Functional Ambulation Assistive Device: Rolling walker (12/31/231029) Distance in feet:: 25 (x2) (12/31/231029) Level of Assistance: Supervision (Please Comment) (12/31/231029) OT Transfers Sit-Stand: Supervision (Please comment) (12/31/231029) Stand-Sit: Supervision (Please comment) (12/31/231029) Balance Sit (Static): Fair (12/31/231029) Sit (Dynamic): Fair (12/31/231029) Stand (Static): Fair (12/31/231029) Stand (Dynamic): Fair (12/31/231029) Patient Education Education Topic: Role of OT;Plan of care goals (12/31/231029) Review of Precautions: Fall;Safety;Skin (12/31/231029) Method of Education: Verbalized to patient (12/31/231029) Education Provided to: Patient (12/31/231029) Response to Education: Receptive and agreeable to education (12/31/231029) Barriers to learning: Medical status (12/31/231029) Preferred learning method: Combination (12/31/231029) Alarm Status Patient positioned in: Chair (12/31/231029) With: Pressure pad alarm intact and functioning and call gtz in reach (12/31/231029) Following session patient seated OOB in chair with chair alarm activated and cord plugged into callbell system. Treatment Provided: Self Skilled Nursing Management Trainin minutes Deficits requiring O.T. treatment needs: ADL/self- care;Balance;Endurance;Functional mobility;Safety;Upper extremity strength;Weakness (12/31/231029) Assessment: Patient in chair upon arrival. Patient performed functional transfers and functional mobility using rolling walker supervision, able to maintain TTWB on RLE. Patient completed ADL's at the above levels. Tolerated session well. Please consider home with post-acute care services which may include home health or outpatient therapy. The level of care will be determined in collaboration with the patient, family/caregiver and care team members. Plan: Continue with plan of care. Anticipated Frequency (on eval): 1 to 3 times per week (12/28/23 1145) Equipment Equipment used in Therapy: Rolling walker (12/31/231029) AM-PAC Help From Another Person Eating Meals: None (12/31/231029) Help From Another Person Taking Care of Personal Grooming: None (12/31/231029) Help From Another Person To Put On/Take Off Upper Body Clothing: A little (12/31/231029) Help From Another Person To Put On/Take Off Lower Body Clothing: A little (12/31/231029) Help From Another Person Toileting: A little (12/31/231029) Help From Another Person Bathing: A little (12/31/231029) OT AM-PAC Score: 20 (12/31/231029) OT AM-PAC t-Scale Score: 42.03 (12/31/231029) HLM (Highest Level of Mobility) Goal: Level 6 walk 10 steps or more (12/31/23916) A portion of this AM-PAC assessment not scored based on functional assessment ,rather clinical decision making utilized based on current findings and/or prior level of function. Please refer to future AM-PAC calculations of functional ability as they become available. * Ancillary Progress Note - Winter Ortega PTA - 12/31/2023 9:17 AM EDT PROGRESS NOTE - Physical Therapy [facility] [place] [address] Name: Rogelio Barrera Location: [facility] [place] H678/A Date: 12/31/2023 Time: 09:17 AM Rogelio Barrera is a/an 58 year old male. Patient Status: Inpatient Insurance: Payor: [facility] FAMILY Plan: [facility] FAMILY PLAN [place] Product Type: *No Product type* Patient Seen: at bedside, nursing cleared patient for therapy Patient Identified By: Name, ID Band and Date Diagnosis: sepsis (12/31/23916) Status of treatment: Treatment completed (12/31/23916) Orders: PT evaluation and treatment;OOB (12/31/23916) Weight Bearing Status: RLE;Non-weight bearing (12/31/23916) Precautions: Alarms (12/31/23916) Total Treatment Time--free text: 25 (12/31/23916) Subjective: patient agreeable "I always see a girl standing on the roof. I know she isn't real" Pain: No complaints of pain Transfers Sit-Stand: Supervision (12/31/23916) Stand-Sit: Supervision (12/31/23916) Ambulation: Distance ambulated (feet): 50 x2 Assistive Device: Rolling walker Assist: Supervision Balance Sit (Static): Fair (12/31/23916) Sit (Dynamic): Fair (12/31/23916) Stand (Static): Fair (12/31/23916) Stand (Dynamic): Fair (12/31/23916) Patient and or Family Goal(s): to get well Topic of Education: Safety with mobility Extremity Exercise Sitting: Hip;Knee;Ankle (12/31/23916) Hip : Bilateral LE;Flexion;Adduction;Abduction;2 sets of 10 (12/31/23916) Knee : Bilateral LE;Extension;2 sets of 10 (12/31/23916) Ankle: Bilateral LE;Plantar flexion;Dorsiflexion;2 sets of 10 (12/31/23916) Method of Education: Verbal discussion and explanation provided to patient: verbalized understanding and or agreement of this information Treatment Provided: Gait Training 10 minutes: gait training with rolling walker Therapeutic Exercises: 15 minutes Alarm Status Patient positioned in: Chair (12/31/23916) With: Pressure pad alarm intact and functioning and call gtz in reach (12/31/23916) Following session patient seated OOB in chair with chair alarm activated and cord plugged into callbell system. Patient Education Review of Precautions: Weight Bearing Status (12/31/23916) Safety Awareness: Patient verbalizes insight of current deficits;Patient demonstrates carryover of insight during functional tasks (12/31/23916) Assessment: Upon arrival patient sitting reclined in chair. Patient states he still feels he is confused and sees a girl standing on the roof. Patient performed a sit to stand/stand to sit transfer x2 requiring supervision. Patient ambulated 50 feet x2 with a rolling walker and supervision. Patientwas able to maintain weight bearing status throughout session. Patient required a rest break due tofatigue before second ambulation. Patient performed therapeutic exercises to increase strength and maintain joint integrity. Please consider home with post-acute care services which may include home health or outpatient therapy. The level of care will be determined in collaboration with the patient, family/caregiver and care team members. Deficits requiring P.T. treatment needs: Mobility;Balance;Weakness;Endurance;Range of motion;Lower extremity strength (12/31/23916) Plan: Continue with current treatment plan established on evaluation. AM PAC Score with Stairs: 18 A portion of this AM-PAC assessment not scored based on functional assessment ; rather clinical decision making utilized based on current findings and/or prior level of function. Please refer to future AM-PAC calculations of functional ability as they become available. * Care Plan - Roni Ingram RN - 12/31/2023 6:25 AM EDT Clinical Goal(s): Patient will remain free from falls during shift (12/30/23 1900) Possible barriers to meeting goal(s)/advancing plan of care: Problem: Risk for Infection & Contamination Goal: Staff & visitors will prevent transmission of infection. Outcome: Progressing Problem: Risk for Social Isolation Goal: Patient will be free of S&S of depression & social isolation. Outcome: Progressing Problem: Pain & Impaired Comfort Goal: Patient's pain & discomfort is manageable. Outcome: Progressing Problem: Safety & Risk for Injury Goal: Patient will remain free from injury. Outcome: Progressing Problem: Daily Care & Potential Self-Care Deficit Goal: Patient's daily care needs are met. Outcome: Progressing Problem: Risk for Impaired Physical Mobility Goal: Patient will maintain optimal mobility level. Outcome: Progressing Problem: Knowledge Deficit Goal: Patient & caregiver will demonstrate understanding. Outcome: Progressing Problem: Discharge Barriers Goal: Patient's discharge needs are met. Outcome: Progressing Problem: Actual & Potential for Impaired Skin Integrity Goal: Patient will maintain skin integrity. Outcome: Progressing Goal: Patient will maintain adequate nutritional intake. Outcome: Progressing Problem: Actual & Potential for Falls Goal: Patient will remain free of falls. Outcome: Progressing Problem: Infection Goal: Signs & symptoms of infection will be decreased or avoided. Outcome: Progressing Goal: Aseptic care of all invasive lines & tubes will be maintained. Outcome: Progressing Goal: Patient's body temperature will be maintained within normal range. Outcome: Progressing Goal: Patient will achieve & maintain fluid & electrolyte balance. Outcome: Progressing Stability of the patient: Moderately stable - low risk of patient condition declining or worsening Summary regarding today's goal(s): Met: Patient remained free from falls during shift. Recommendations: Continue to monitor * Care Plan - Efra Jacques RN - 12/30/2023 6:28 PM EDT Problem: Safety & Risk for Injury Goal: Patient will remain free from injury. Outcome: Progressing Problem: Risk for Impaired Physical Mobility Goal: Patient will maintain optimal mobility level. Outcome: Progressing Problem: Actual & Potential for Falls Goal: Patient will remain free of falls. Outcome: Progressing Clinical Goal(s): pt will remain free from falls till the end of the shifdt (12/30/23 0750) Possible barriers to meeting goal(s)/advancing plan of care: weakness after the recent procedure, pain level Stability of the patient: Moderately stable - low risk of patient condition declining or worsening Summary regarding today's goal(s): Met: pt remained free from falls till the end of the shift Recommendations: pt will continue implementing falls precautions * Ancillary Progress Note - Lynn Alexandre RN - 12/30/2023 2:29 PM EDT CARE MANAGEMENT - ADULT TRANSITION NOTE [facility] [place] [address] Name: Rogelio Barrera Location: [facility] [place] H678/A Date: 12/30/2023 Time: 2:29 PM Risk Stratification Risk Stratification Psycho Social / Medical Concerns Identified: Adjustment to illness/injury;Multiple Comorbidities (12/22/23 1015) Readmission Risk Score: 19.97 (12/30/23 1200) AM-PAC Score With Stairs : 18 (12/28/23 1414) Caregiver Information Patient Contacts Name Relation Home Work Mobile Frieda Urbina [phone] Татьяна Urbina Niece/Nephew [phone] Transition of Care Checklist Transition of Care Checklist (aka Readmission Risk Score) Discharge Disposition: Home w/Home Health (12/30/23 1429) Home or Home w/Home Health: High (18-33%) (12/30/23 1429) High (18-33%): Coordinate initial Home Health visit within 24 hours of discharge if medically necessary (12/28/23 1403) Narrative: Patient discussed at IDT rounds, and per chart review, patient not medically stable for discharge. Creatinine level remains elevated. HGB low. Received unit PRBC today. Remains on heparin infusion. Anticipated discharge end of the week. MARTIN spoke with Narcisa at [facility] regarding patient's potential discharge. 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 She is off work tomorrow. Will get back to CM Thursday morning for potential soc Thursday. CM will continue to follow. 1515 CM received callback from Narcisa at [facility], able to see patient Thursday for soc then can revisit again Thursday for start of IV abx. CM to reach out on Thursday to provide update. Anticipated Transportation at Discharge: family Patient/Family Expectations: home with [facility] and HH Transition Planning Transition Planning Transition Plan/Considerations: Discussed at Interdisciplinary Team / Boost Rounds (12/30/231428) [facility] Quality Rating provided to patient: Yes (12/22/23 1016) Repisodic Choice provided to patient: No (12/30/231428) Transition plan discussed with - Enter name and phone #: with service at IDT rounds (12/30/231428) Insurance Considerations: N/A (12/30/231428) Referral to Community Agency : N/A (12/30/231428) Post-Acute Care needs identified and Referrals Completed: N/A (12/30/231428) Agency Choice Due to: Patient preference (12/30/231428) Additional Considerations: Care Management will continue to monitor and assist with discharge planning needs * Care Plan - Whit Brice RN - 12/30/2023 6:55 AM EDT Clinical Goal(s): Pt will remain free from falls this shift. (12/29/23 2300) Possible barriers to meeting goal(s)/advancing plan of care: weakness, weight bearing status Stability of the patient: Moderately stable - low risk of patient condition declining or worsening Summary regarding today's goal(s): Met: No falls this shift Recommendations: continue with fall precaution and plan of care. * Ancillary Progress Note - Lynn Alexandre RN - 12/29/2023 3:13 PM EDT CARE MANAGEMENT - ADULT TRANSITION NOTE [facility] [place] [address] Name: Rogelio Barrera Location: [facility] [place] H678/A Date: 12/29/2023 Time: 3:13 PM Risk Stratification Risk Stratification Psycho Social / Medical Concerns Identified: Adjustment to illness/injury;Multiple Comorbidities (12/22/23 1015) Readmission Risk Score: 19.89 (12/29/23 1201) AM-PAC Score With Stairs : 18 (12/28/23 1414) Caregiver Information Patient Contacts Name Relation Home Work Mobile Frieda Urbina Sibling [phone] Татьяна Urbina Niece/Nephew [phone] Transition of Care Checklist Transition of Care Checklist (aka Readmission Risk Score) Discharge Disposition: Home w/Home Health (12/29/231511) Home or Home w/Home Health: High (18-33%) (12/29/231511) High (18-33%): Coordinate initial Home Health visit within 24 hours of discharge if medically necessary (12/28/23 1403) Narrative: Patient discussed at IDT rounds, and per chart review, patient not medically stable for discharge. Has increased creatinine level. Has low Hgb. Patient currently receiving NSS infusion 125mL/hr for DICK. Patient remains on heparin infusion for RLE occlusive DVT. CM reached out to Josephine BOONE to assist in following up on HH referrals. Per Josephine Borjas, [facility] can offer soc for either or Thursday. Update Yolanda [phone] with more definitive discharge date.CM will continue to follow. Anticipated Transportation at Discharge: family Patient/Family Expectations: return home with [facility] HH Transition Planning Transition Planning Transition Plan/Considerations: Discussed at Interdisciplinary Team / Boost Rounds (12/29/231511) [facility] Quality Rating provided to patient: Yes (12/22/23 1016) Repisodic Choice provided to patient: No (12/29/231511) Transition plan discussed with - Enter name and phone #: with service at IDT rounds (12/29/231511) Insurance Considerations: N/A (12/29/231511) Referral to Community Agency : N/A (12/29/231511) Post-Acute Care needs identified and Referrals Completed: N/A (12/29/231511) Agency Choice Due to: Patient preference (12/29/23 151) Additional Considerations: Care Management will continue to monitor and assist with discharge planning needs * Ancillary Progress Note - Lynn Alexandre RN - 12/29/2023 11:35 AM EDT HOME HEALTH/HOSPICE REFERRAL FORM CARE MANAGEMENT [facility] [place] [address] Phone: Fax: Referred By: Lynn Alexandre RN Admission Date: 12/21/2023 Discharge Date: 01/01/2024 Discharge Time: afternoon Start Date: Day of discharge Agency Referred To: [facility] PATIENT INFORMATION: Name: Rogelio Barrera [address]: [address] [place] [id number] : 1965 (home) SSN: [id number] County: [place] Emergency Contacts: Extended Emergency Contact Information Primary Emergency [place] [address] [facility] Mobile Relation: Sibling Secondary Emergency Contact: Татьяна Urbina [facility] Mobile Relation: Niece/Nephew MEDICAL INFORMATION: Principal Diagnosis: Sepsis, MRSA bacteremia Other Diagnosis: See attached History and Physical Surgery and Dates: Past Surgical History: Procedure Laterality Date BONE BIOPSY, TROCAR/NEEDLE, DEEP Right 12/22/2023 BIOPSY BONE TROCAR OR NEEDLE DEEP performed by Sebas Sheridan MD at [facility] COLONOSCOPY W/ LESION REMOVAL, SNARE 03/04/2019 rectal polyp at 10 cm PARTIAL REMOVAL OF LEG BONE(S) Right 12/25/2023 PARTIAL REMOVAL BONE FEMUR PROXIMAL TIBIA FIBULA performed by Sebas Sheridan MD at [facility] REMOVAL OF ADENOIDS, UNDER AGE 12 Diet: Adults: As tolerated Allergies: Patient has no known allergies. Isolation Type: Contact Activity Restrictions: Weight bearing as tolerated Isolation For: MRSA HOME CARE ORDERS: (Discipline and Frequency): Overall health assessment and vital signs Medication management and teaching Disease management and teaching Home safety evaluation Assess for services PT/OT evaluation as indicated Labwork as indicated IV abx Medications Dose, Frequency, & Route: See patient copy of discharge instructions Equipment and Supplies: N/A Ordering Physician and Contact Information: Ed Melissa MD Comments: PCP: PCP: RAUL DRUMMOND [address] [place] [address] AILE[place] Jose [address] [phone] D/C Physician: Winston Tarango MD Insurance: See attached facesheet. * Care Plan - Whit Brice RN - 12/29/2023 7:01 AM EDT Clinical Goal(s): Pt will remain free from falls this shift. (12/28/23 2300) Possible barriers to meeting goal(s)/advancing plan of care: weakness Stability of the patient: Moderately stable - low risk of patient condition declining or worsening Summary regarding today's goal(s): Met: No falls this shift Recommendations: continue with fall precaution,plan of care * Progress Notes - Non-Billable - Sophia Rios MD - 12/28/2023 5:33 PM EDT DISCHARGE PROGRESS NOTE - Infectious Disease [facility] [place] [address] Name: Rogelio Barrera Location: [facility] [place] H678/A Date: 12/28/2023 Time: 5:33 PM This is a updated note from that on 12/24/2023 to reflect the new changes in the OPAT note. Patient developed DICK while on Vancomycin and we decided to shift to Daptomycin. OBJECTIVE: Most Recent Vital Signs: BP: 158 mmHg/78 mmHg (12/28/23 1400) Pulse: 82 (12/28/23 1400) Temp: 37.5 C (12/28/23 1400) Temp Summary: Temp Min: 37.1 C (98.8 F) Max: 37.7 C (99.9 F) SpO2: 97 % (12/28/23 1400) O2 flow rate: 2 L/MIN (12/28/23 0621) Supplemental O2 Delivery: Room Air, None (12/28/23 1400) Vital Signs Last 24 Hours: Systolic BP: Most Recent Systolic BP Av.7 mmHg Min: 138 mmHg Max: 158 mmHg Temperature: Most Recent Temperature Av.5 C Min: 37.11 C Max: 37.72 C Pulse: Pulse Av.4 Min: 76 Max: 86 Respirations: Resp Av.8 Min: 17 Max: 18 SpO2: SpO2 Av.4 % Min: 97 % Max: 100 % Microbiology: 12/16: 3/4 bottles of blood culture positive for MRSA 12/17: 2/4 bottles of blood culture positive for MRSA 12/18: 2/4 bottles of blood culture positive for MRSA 12/19: 1 of 4 bottles of blood culture positive for MRSA 12/20: 2 sets of blood culture negative 12/21: Urine culture with no growth 12/21: Right femur biopsy growing MRSA 12/24: 2 Intraoperative femur bone cultures growing MRSA ASSESSMENT: 1) 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- SHARRI less than or equal to 0.5 for both vancomycin and daptomycin 2) Pelvic abscess (between the prostate gland and rectum around 4 x 2 cm) 3) Pulmonary septic embolus - around 2.4 cm located in the left lower lobe 4) 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 2) He will require at least 6 weeks of IV daptomycin starting the day of bone debridement on 12/24.Anticipated last day will be February 05, 2024. 3) he will need a repeat CT scan of the abdomen and pelvis within 4 weeks of discharge to follow upon the pelvic abscess because this might affect the duration of antibiotic treatment. FINAL IMPRESSION AND RECOMMENDATIONS: Syndrome Endocarditis/Pelvic abscess/Distal Rt femur osteomyelitis Microbiology Staphylococcus aureus (MRSA) Antibiotic Daptomycin 8-10 mg/kg IV Q24 hours (adjust for renal function) End Date February 05, 2024 Vascular access: Do not remove PICC line until the infectious disease physician approves Recommended followup imaging studies: Computed tomography (with option for pelvis) within 4 weeks to follow up on the pelvic abscess LABORATORY MONITORING: Lab Test Frequency End Date CBC with diff CMP CPK Q week February 05, 2024 PROVIDERS: Following ID Physician ID clinic follow-up date Sophia Rios and Aidan Mc Within 6 weeks * Ancillary Progress Note - Winter Ortega PTA - 12/28/2023 2:14 PM EDT PROGRESS NOTE - Physical Therapy [facility] [place] [address] Name: Rogelio Barrera Location: [facility] [place] H678/A Date: 12/28/2023 Time: 2:14 PM Rogelio Barrera is a/an 58 year old male. Patient Status: Inpatient Insurance: Payor: [facility] FAMILY Plan: [facility] FAMILY PLAN [place] Product Type: *No Product type* Patient Seen: at bedside, nursing cleared patient for therapy Patient Identified By: Name, ID Band and Date Diagnosis: sepsis (12/28/231413) Status of treatment: Treatment completed (12/28/231413) Orders: PT evaluation and treatment;OOB (12/28/231413) Weight Bearing Status: RLE;Non-weight bearing (12/28/231413) Precautions: Alarms (12/28/231413) Total Treatment Time--free text: 19 (12/28/231413) Subjective: patient agreeable Pain: No complaints of pain Transfers Sit-Stand: Supervision (12/28/231413) Stand-Sit: Supervision (12/28/231413) Ambulation: Distance ambulated (feet): 50 Assistive Device: Rolling walker Assist: Supervision Balance Sit (Static): Fair (12/28/231413) Sit (Dynamic): Fair (12/28/231413) Stand (Static): Fair (12/28/231413) Stand (Dynamic): Fair (12/28/231413) Patient and or Family Goal(s): to get well Topic of Education: Safety with mobility Extremity Exercise Sitting: Knee (12/28/231413) Knee : Bilateral LE;Extension;2 sets of 10 (12/28/231413) Supine: Hip;Knee;Ankle (12/28/231413) Hip : Bilateral LE;Flexion;Adduction;Abduction;1 set of 10 (12/28/231413) Knee : Bilateral LE;Heel slide;1 set of 10 (12/28/231413) Ankle: Bilateral LE;Plantar flexion;Dorsiflexion;2 sets of 10 (12/28/231413) Method of Education: Verbal discussion and explanation provided to patient: verbalized understanding and or agreement of this information Treatment Provided: Gait Training 19 minutes: gait training with rolling walker Therapeutic exercises Alarm Status Patient positioned in: Chair (12/28/231413) With: Pressure pad alarm intact and functioning and call gtz in reach (12/28/231413) Following session patient seated OOB in chair with chair alarm activated and cord plugged into callbell system. Patient Education Review of Precautions: Weight Bearing Status (12/28/231413) Safety Awareness: Patient verbalizes insight of current deficits;Patient demonstrates carryover of insight during functional tasks (12/28/231413) Assessment: Upon arrival patient sitting in chair. Patient maintained weight bearing restrictions throughout therapy. Patient performed a sit to stand/stand to sit transfer requiring supervision. Patient ambulated 50 feet in the room with supervision and a rolling walker. Patient performed therapeutic exercises to increase strength in the LE's. Ambulation limited due to fatigue. Please consider home with post-acute care services which may include home health or outpatient therapy. The level of care will be determined in collaboration with the patient, family/caregiver and care team members. Deficits requiring P.T. treatment needs: Mobility;Balance;Weakness;Endurance;Range of motion;Lower extremity strength (12/28/231413) Plan: Continue with current treatment plan established on evaluation. AM PAC Score with Stairs: 18 A portion of this AM-PAC assessment not scored based on functional assessment; rather clinical decision making utilized based on current findings and/or prior level of function. Please refer to future AM-PAC calculations of functional ability as they become available. * Ancillary Progress Note - Saullo, Crystal, RN - 12/28/2023 2:04 PM EDT CARE MANAGEMENT - ADULT TRANSITION [place] [facility] [place] [address] Name: Rogelio Barrera Location: [facility] [place] H678/A Date: 12/28/2023 Time: 2:04 PM Risk Stratification Risk Stratification Psycho Social / Medical Concerns Identified: Adjustment to illness/injury;Multiple Comorbidities (12/22/23 1015) Readmission Risk Score: 19.81 (12/28/23 1201) AM-PAC Score With Stairs : 16 (12/27/23 0900) Caregiver Information Patient Contacts Name Relation Home Work Mobile Frieda Urbina [phone] Татьяна Urbina Niece/Nephew [phone] Transition of Care Checklist Transition of Care Checklist (aka Readmission Risk Score) Discharge Disposition: Home w/Home Health (12/28/231402) Home or Home w/Home Health: High (18-33%) (12/28/231402) High (18-33%): Coordinate initial Home Health visit within 24 hours of discharge if medically necessary (12/28/231402) Narrative: Patient discussed at IDT rounds, and per chart review, patient not medically stable for discharge. S/P right distal femur bone biopsy on 12/22/2023. Remains on heparin infusion. No anticipated discharge date. CM will continue to follow. Anticipated Transportation at Discharge: family Patient/Family Expectations: home with [facility] and HH Transition Planning Transition Planning Transition Plan/Considerations: Discussed at Interdisciplinary Team / Boost Rounds (12/28/231402) CMS Quality Rating provided to patient: Yes (12/22/23 1016) Repisodic Choice provided to patient: No (12/28/231402) Transition plan discussed with - Enter name and phone #: with service at IDT rounds (12/28/231402) Insurance Considerations: N/A (12/28/231402) Referral to Community Agency : N/A (12/28/231402) Post-Acute Care needs identified and Referrals Completed: N/A (12/28/231402) Agency Choice Due to: Patient preference (12/28/23 1403) Additional Considerations: Care Management will continue to monitor and assist with discharge planning needs * Ancillary Progress Note - Adalberto Rodriguez, OT - 12/28/2023 11:45 AM EDT PROGRESS NOTE - Occupational Therapy [facility] [place] [address] Name: Rogelio Barrera [place]: [facility] [place] H678/A Date: 12/28/2023 Time: 11:45 AM Rogelio Barrera is a 58 year old male. Patient Status: Inpatient Insurance: Payor: [facility] FAMILY Plan: [facility] FAMILY PLAN [place] Product Type: *No Product type* Patient Seen: at bedside, nursing cleared patient for therapy Patient Identified By: Name, ID Band and Date Diagnosis: sepsis (12/28/23 114) Status of treatment: Treatment completed (12/28/23 114) Orders: OT evaluation and treatment;OT OOB (12/28/23 114) Weight Bearing Status: Toe touch weight bearing;RLE (12/28/23 114) Precautions: Alarms;Falls;Safety (12/28/23 114) Total Treatment Time: 23 (12/28/23 114) Subjective: Patient agreeable to session, wants to get OOB Pain: Patient has complaints of minor RLE pain with activity Observations Consciousness: Alert (12/28/23 114) Orientation: Oriented times 4 (12/28/23 114) Psychosocial: Patient can communicate basic needs;Patient can converse in a social setting (12/28/23 114) Sitting posture: Forward head;Rounded shoulders (12/28/23 114) Standing posture: Forward head;Rounded shoulders (12/28/23 114) Safety awareness: The Patient verbalizes insight of current deficits.;The Patient demonstrates carryover of insight during functional tasks. (12/28/23 114) Other Findings Light touch sensation: LUE;RUE;Intact (12/28/23 114) Coordination: LUE;RUE;Intact (12/28/23 114) Current Functional Status: Activities of Daily Living: Self Care Able to provide self care: Yes (12/28/23 114) Grooming: Supervision (Please comment) (12/23/23 1040) Dressing Upper Body: Supervision (Please comment) (to simulate gown) (12/28/23 114) Lower Body: Supervision (Please comment) (to manage socks) (12/28/23 114) Bathing Upper Body: Supervision (Please comment) (12/23/23 1040) Lower Body: Minimal Assistance (RLE) (12/23/23 1040) Functional Ambulation Assistive Device: Rolling walker (12/28/23 114) Distance in feet:: 35 (12/28/231144) Level of Assistance: Supervision (Please Comment) (12/28/23 114) Bed Mobility Supine-Sit: Supervision (Please comment) (12/23/23 1040) OT Transfers Sit-Stand: Supervision (Please comment) (12/28/23 114) Stand-Sit: Supervision (Please comment) (12/28/23 114) Bed-Chair: Supervision (Please comment) (12/23/23 1040) Balance Sit (Static): Fair (12/28/231144) Sit (Dynamic): Fair (12/28/231144) Stand (Static): Fair (12/28/231144) Stand (Dynamic): Fair (12/28/231144) Patient Education Education Topic: Role of OT;Plan of care goals (12/28/231144) Review of Precautions: Safety;Fall (12/28/231144) Method of Education: Verbalized to patient (12/28/231144) Education Provided to: Patient (12/28/231144) Response to Education: Receptive and agreeable to education (12/28/231144) Barriers to learning: None (12/28/231144) Preferred learning method: Combination (12/28/231144) Alarm Status Patient positioned in: Chair (12/28/231144) With: Call gtz in reach (Patient OOB with no alarm on chair at start of session) (12/28/231144) Treatment Provided: Therapeutic Activity: 23 minutes Deficits requiring O.T. treatment needs: ADL/self- care;Balance;Endurance;Functional mobility;IADL;Safety;Upper extremity strength;Weakness (12/28/231144) Assessment: Patient cooperative with treatment session this date. On exam, he presented OOB in chair. He was able to simulate UB dressing unassisted through functional range of motion (patient limited by bilateral IV lines this date). He was able to manage socks with supervision only with extra time needed for R sock. Patient was able to ambulate in room using walker with close supervision due tominor unsteadiness, and maintained no weightbearing on RLE (patient aware he is now TTWB). He wouldbenefit from ongoing acute OT services to improve function. Please consider home with post-acute care services which may include home health or outpatient therapy. The level of care will be determined in collaboration with the patient, family/caregiver and care team members. Plan: Continue plan of care Anticipated Frequency (on eval): 1 to 3 times per week (12/28/231144) Equipment Equipment used in Therapy: Rolling walker (12/28/231144) AM-PAC Help From Another Person Eating Meals: None (12/28/231144) Help From Another Person Taking Care of Personal Grooming: None (12/28/231144) Help From Another Person To Put On/Take Off Upper Body Clothing: A little (12/28/231144) Help From Another Person To Put On/Take Off Lower Body Clothing: A little (12/28/231144) Help From Another Person Toileting: A little (12/28/231144) Help From Another Person Bathing: A little (12/28/231144) OT AM-PAC Score: 20 (12/28/231144) OT AM-PAC t-Scale Score: 42.03 (12/28/231144) JH HLM (Highest Level of Mobility) Goal: Level 6 walk 10 steps or more (12/28/23 1414) * Ancillary Progress Note - Jeremiah Willoughby Jr., RDN - 12/28/2023 10:39 AM EDT CLINICAL NUTRITION CONSULT/PROGRESS NOTE [facility] [place] [address] Name: Rogelio Barrera Location: [facility] [place] H678/A Date: 12/28/2023 Time: 10:39 AM How patient was identified (select 2): date and Name Discussed in interdisciplinary rounds: No Rogelio Barrera is a 58 year old male being seen for follow-up Primary Diagnosis: 58 year old male admitted as of 12/21/23 due to sepsis and 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 Other pertinent information: Patient was seen in his room earlier today. He reports that his appetite had been poor for ~1 month [employer]PUT[employer], and that he had been eating less during that timeframe. He reports that appetite is somewhat improved since admission and that he is eating better, though does report that he has been having trouble finding foods that are palatable to him. He is receptive to receiving Boost supplements while admitted to help support his intake. No issues with chewing or swallowing are reported. No current reports of N/V or GI intolerance to diet. NUTRITION ASSESSMENT: Past medical/surgical history and medications reviewed. Food/Nutrition-Related History Nutrition Support: N/A Diet: Regular Previously followed diet: Regular Food Allergies/Intolerances: None known Adult Energy Intake: Less than 75% of estimated energy requirement for greater than 1 month (moderate/severe, chronic illness). Percentage of meal intake: ~50-75% Oral Nutrition Supplement (ONS): None Pertinent medications/vitamins/minerals/supplements: NSS Pertinent Biochemical Data: There are no biochemical abnormalities requiring a change in the nutrition plan of care. Nutrition-Focused Physical Findings: Appearance: WNWD Respiratory support: Supplemental O2 Delivery: Room Air, None Nasal/Oral: No issues identified Digestive: Appetite fair Last Bowel Movement: 12/27/23 (12/27/2315) Cognition: Awake, alert and Oriented Skin: - RLE surgical wounds - suspected pressure injury to sacrum per Nursing Enteral access: None Nutrition Focused Physical Exam: NFPE completed on 12/28/23 Subcutaneous Fat Loss: No significant subcutaneous fat loss noted. Muscle Loss: No significant muscle loss noted. Edema Location: Lower extremities;Both (12/27/232046) Edema Assessment: +3 - Description (12/27/232046) Anthropometrics Measurements Height: 167.6 cm (5' 6") (12/21/232147) Admission weight: 88.5 kg Weight: 106.5 kg (234 lb 12.6 oz) (12/28/23 0800) BMI: 31.49 (12/21/238) Usual Body Weight: Appears to be ~109-112 kg per [facility]; pt endorses a loss of ~25- 30 lb X 1 month [employer]PUT[employer] DES[employer] [place] weight: 70.0 kg [place] Weight Based on BMI: 24.9 Interpretation of Weight Change Prior to Admission: Greater than 7.5% weight loss in 3 months (Severe) - suspect weight loss was affected to some degree by fluid change Weight Changes Since Admission: Current weight indicates an increase of 18 kg since admission; +3 BLE edema currently noted Nutrition Prescription: Energy needs: 20-25 Kcal/kg Kcal/day: 1472-7020 Based on admission weight Protein needs: 1.0-1.2 gm/kg Protein: 89-106 gm Based on admission weight Fluid needs: 30 ml/kg Fluid: 2655 ml/day - for maintenance Based on admission weight Malnutrition: Adult Malnutrition Classification: Unable to determine (12/28/23 1050) NUTRITION DIAGNOSIS: Suboptimal energy intake related to acute condition affecting appetite as evidenced by patient recall suggestive of energy intake of < 75% of estimated needs X 1 month Goals: Patient to consume greater than 50 % of daily meals and 75% of daily supplements within 5 days. NUTRITION INTERVENTION/PLAN: Orders: Oral nutrition supplement added Boost High Protein (1 cup provides 250 calories, 20 grams protein, 28 grams carbohydrate) BID Clinical Nutrition Recommendations: Diet: Continue current nutrition plan NUTRITION MONITORING AND EVALUATION: Nursing documentation flowsheets for percent meal intake Tolerance of supplement per patient/nursing report Lab values warranting change with MNT Weight for trends Plan follow-up: Will follow and adjust nutrition plan of care as medical condition requires. Please contact for change(s) in patient condition requiring earlier intervention. Jeremiah Willoughby RDN, CSG, LDN Clinical Dietitian II Clinical Nutrition Services [employer] / * Progress Notes - Post-Op Gutierrez - Edy Quintero MD - 12/28/2023 8:44 AM EDT Images from the original note were not included. Orthopaedic Progress Note [address] [address] Name: Rogelio Barrera [place] [facility] [place] H678/[place] Date: 12/28/2023 Time: 8:44 AM 24 hour events/Subjective: Patient doing well overall. Mental status notably improved. Reports that pain is very well tolerated. Aware that he was touchdown weight-bearing. Denies fevers, shortness of breath, chest pain, nausea vomiting diarrhea Objective: BP: 141 mmHg/66 mmHg (12/28/23620) Pulse: 76 (12/28/23799) Temp: 37.28 C (12/28/23620) Temp Summary: Temp Min: 37.1 C (98.8 F) Max: 37.7 C (99.9 F) SpO2: 100 % (12/28/23620) O2 flow rate: 2 L/MIN (12/28/23620) Supplemental O2 Delivery: Nasal Cannula (12/28/23620) Output by Drain (mL) 12/27/23 0700 - 12/27/23 1459 12/27/23 1500 - 12/27/23 2259 12/27/23 2300 - 12/28/23 0659 12/28/23 0700 - 12/28/23 0848 Range Total Drain Duy Right;Outer Thigh 60 75 135 CONSTITUTIONAL State of health: acutely ill Level of consciousness: alert Distress: mild MUSCULOSKELETAL RLE Dressing C/D/I - bulky dressing removed, Aquacel with minimal saturation - drain in place and holding suction - output above SILT s/s/sp/dp/tib nerve dist +EHL/FHL/Ankle dorsiflexion/plantarflexion Toes WWP, cap refill less than 2 seconds Imaging: Intraop imaging reviewed and reveals antibiotic beads in the distal femur. No post-op imaging required Labs: Labs (3 Days) 12/28/2023 12/27/2023 12/26/2023 12/26/2023 12/26/2023 12/25/2023 12/24/2023 12/24/2023 7:08 AM 6:32 AM 8:16 PM 7:38 AM 6:43 AM 6:55 AM 4:44 PM 5:31 AM HGB 7.8 7.1 7.4 7.0 7.6 8.2 8.5 6.6 WBC 12.01 11.93 13.01 13.60 14.25 12.41 13.07 12.35 PLT 762 688 722 620 664 660 685 549 BUN 24 24 -- -- 21 16 -- 13 CREAT 3.1 3.1 -- -- 2.9 2.5 -- 2.0 Cultures: Recent Cultures (2 Weeks) 12/25/2023 12/25/2023 12/22/2023 12/22/2023 12/21/2023 12/21/2023 11:20 AM 11:19 AM 6:17 PM 12:06 AM 10:49 PM 10:46 PM FUNGUS STAIN DESCRIPTION -- -- No yeast or hyphae seen. -- -- -- FUNGUS CULTURE GROWTH -- -- No fungus isolated to date -- -- -- STAIN DESCRIPTION Occasional Polymorphonuclear leukocytes Many Polymorphonuclear leukocytes Few Polymorphonuclear leukocytes -- -- -- Few Gram positive cocci Few Gram positive cocci Many Gram positive cocci CULTURE GROWTH Two colonies Staphylococcus aureus Few Staphylococcus aureus MRSA, This patient may require isolation. Few Staphylococcus aureus MRSA, This patient may require isolation. -- -- -- BLOOD CULTURE GROWTH -- -- -- -- No growth No growth QUANT URINE CULTURE GROWTH -- -- -- No significant growth -- -- Assessment/Plan: Mr. 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 Sheridan on OR date: 12/25/2023. - Tylenol 975 mg PO Q6H, Tylenol 650 mg PO Q6H PRN mild pain, Oxycodone 5-10 mg PO Q4H PRN moderateto severe pain, Tramadol 50 mg PO Q6H, Dilaudid 0.5 mg IV Q2H PRN breakthrough pain - Lower Right Extremity: toe touch weight bearing - discussed weight bearing restrictions again with the patient and the high risk for fracture but discussed as well that we would like him OOB and mobilizing more - OOB with assist - P.T./O.T. - keep dressing in place, reinforce dressing PRN - no plan for urgent OR at this time - regular diet, periop antibiotics - abx per ID (currently Vanc), TEDs, SCDs, DVT Proph per primary- Currently IV Heparin - surgical path from both procedures still pending Disposition: pending Provisional care provided and general supervision by Dr. Wallace * Care Plan - Roni Ingram RN - 12/28/2023 6:46 AM EDT Clinical Goal(s): Pt will remain free from falls during shift. (12/27/23 1900) Possible barriers to meeting goal(s)/advancing plan of care: recent surgery Stability of the patient: Moderately stable - low risk of patient condition declining or worsening Summary regarding today's goal(s): Met: Patient remained free from falls during shift, Recommendations: Continue to monitor * Care Plan - Liz Huddleston RN - 12/27/2023 6:26 PM EDT Problem: Safety & Risk for Injury Goal: Patient will remain free from injury. Outcome: Progressing Problem: Risk for Impaired Physical Mobility Goal: Patient will maintain optimal mobility level. Outcome: Progressing Problem: Actual & Potential for Falls Goal: Patient will remain free of falls. Outcome: Progressing Clinical Goal(s): Pt will be free from falls during this shift (12/27/23 0800) Possible barriers to meeting goal(s)/advancing plan of care: new environment, recent surgery, pain control, walker use, weak, TTWB RLE. Stability of the patient: Moderately stable - low risk of patient condition declining or worsening Summary regarding today's goal(s): Met: Patient did not fall during this shift. Recommendations: Continue fall preventions. * Care Plan - Roni Ingram RN - 12/27/2023 7:18 AM EDT Clinical Goal(s): Patient will remain free from falls during shift (12/26/23 1900) Possible barriers to meeting goal(s)/advancing plan of care: recent surgery Stability of the patient: Moderately stable - low risk of patient condition declining or worsening Summary regarding today's goal(s): Met: Patient remained free from falls during shift Recommendations: Continue to monitor * Progress Notes - Post-Op Global - Eduardo Camara MD - 12/27/2023 6:53 AM EDT Images from the original note were not included. Orthopaedic Progress Note [facility] [place] [address] Name: Rogelio Barrera Location: [facility] [place] H678/A Date: 12/27/2023 Time: 6:53 AM 24 hour events/Subjective: POD2. No acute events overnight. Resting comfortably in bed this morning. Appears to be doing significantly better than yesterday. Much less confused. Converses well without issue. Endorses pain whenmoving but otherwise pain is well controlled. Was not yet OOB. Afebrile . Objective: BP: 143 mmHg/65 mmHg (12/27/23639) Pulse: 100 (12/27/23639) Temp: 37.39 C (12/27/23639) Temp Summary: Temp Min: 36.4 C (97.5 F) Max: 37.8 C (100 F) SpO2: 95 % (12/27/23639) O2 flow rate: 1 L/MIN (12/26/23 2248) Supplemental O2 Delivery: Room Air, None (12/27/23639) Output by Drain (mL) 12/26/23 0700 - 12/26/23 1459 12/26/23 1500 - 12/26/23 2259 12/26/23 2300 - 12/27/23 0653 Range Total Drain Duy Right;Outer Thigh 110 50 160 CONSTITUTIONAL State of health: acutely ill Level of consciousness: alert Distress: mild MUSCULOSKELETAL RLE Dressing C/D/I - bulky dressing in place - drain in place and holding suction - output above SILT s/s/sp/dp/tib nerve dist +EHL/FHL/Ankle dorsiflexion/plantarflexion Toes WWP Imaging: Intraop imaging reviewed and reveals antibiotic beads in the distal femur. No post-op imaging required Labs: Labs (3 Days) 12/26/2023 12/26/2023 12/26/2023 12/25/2023 12/24/2023 12/24/2023 2023 12/22/2023 8:16 PM 7:38 AM 6:43 AM 6:55 AM 4:44 PM 5:31 AM 5:38 AM 11:14 PM HGB 7.4 7.0 7.6 8.2 8.5 6.6 7.4 7.8 WBC 13.01 13.60 14.25 12.41 13.07 12.35 13.58 14.20 PLT 722 620 664 660 685 549 638 656 BUN -- -- 21 16 -- 13 12 -- CREAT -- -- 2.9 2.5 -- 2.0 1.5 -- Cultures: Recent Cultures (2 Weeks) 12/25/2023 12/25/2023 12/22/2023 12/22/2023 12/21/2023 12/21/2023 11:20 AM 11:19 AM 6:17 PM 12:06 AM 10:49 PM 10:46 PM FUNGUS STAIN DESCRIPTION -- -- No yeast or hyphae seen. -- -- -- FUNGUS CULTURE GROWTH -- -- No fungus isolated to date -- -- -- STAIN DESCRIPTION Occasional Polymorphonuclear leukocytes Many Polymorphonuclear leukocytes Few Polymorphonuclear leukocytes -- -- -- Few Gram positive cocci Few Gram positive cocci Many Gram positive cocci CULTURE GROWTH Light growth, additional studies pending Few Staphylococcus aureus Few Staphylococcus aureus MRSA, This patient may require isolation. -- -- -- BLOOD CULTURE GROWTH -- -- -- -- No growth No growth QUANT URINE CULTURE GROWTH -- -- -- No significant growth -- -- Assessment/Plan: Mr. 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 Sheridan on OR date: 12/25/2023. - Tylenol 975 mg PO Q6H, Tylenol 650 mg PO Q6H PRN mild pain, Oxycodone 5-10 mg PO Q4H PRN moderateto severe pain, Tramadol 50 mg PO Q6H, Dilaudid 0.5 mg IV Q2H PRN breakthrough pain - Lower Right Extremity: toe touch weight bearing - discussed weight bearing restrictions again with the patient and the high risk for fracture but discussed as well that we would like him OOB and mobilizing more - OOB with assist - P.T./O.T. - keep dressing in place, reinforce dressing PRN - no plan for urgent OR at this time - regular diet, periop antibiotics - abx per ID (currently Vanc), TEDs, SCDs, DVT Proph per primary- Currently IV Heparin Disposition: pending Provisional care provided and general supervision by Dr. Wallace * Care Plan - Liz Huddleston RN - 12/26/2023 6:36 PM EDT Problem: Safety & Risk for Injury Goal: Patient will remain free from injury. Outcome: Progressing Problem: Risk for Impaired Physical Mobility Goal: Patient will maintain optimal mobility level. Outcome: Progressing Problem: Actual & Potential for Falls Goal: Patient will remain free of falls. Outcome: Progressing Clinical Goal(s): Pt will be free from falls during this shift (12/26/23 0800) Possible barriers to meeting goal(s)/advancing plan of care: new environment, recent surgery, pain control, confused, sleepy. Stability of the patient: Moderately stable - low risk of patient condition declining or worsening Summary regarding today's goal(s): Met: Patient did not fall during this shift. Recommendations: Continue fall preventions. * Diagnostic Clarification - Ed Melissa MD - 12/26/2023 12:59 PM EDT The patient has been diagnosed with metabolic encephalopathy. * Progress Notes - Post-Op Global - Eduardo Camara MD - 12/26/2023 9:08 AM EDT Images from the original note were not included. Orthopaedic Progress Note [address] [address] Name: Rogelio Barrera Location: [facility] [place] H678/[place] Date: 12/26/2023 Time: 9:08 AM 24 hour events/Subjective: POD1. No acute events overnight. Patient appears to be lethargic and somewhat confused this morning. But similarly to yesterday. Periodically answers questions appropriately. Follows commands appropriately. Afebrile. Not yet OOB, Objective: BP: 146 mmHg/88 mmHg (12/26/23651) Pulse: 101 (12/26/23651) Temp: 35.89 C (12/26/23651) Temp Summary: Temp Min: 35.9 C (96.6 F) Max: 36.9 C (98.4 F) SpO2: 99 % (12/26/23651) O2 flow rate: 2 L/MIN (12/26/23651) Supplemental O2 Delivery: Nasal Cannula (12/26/23651) Output by Drain (mL) 12/25/23 0700 - 12/25/23 1459 12/25/23 1500 - 12/25/23 2259 12/25/23 2300 - 12/26/23 0659 12/26/23 0700 - 12/26/23 0908 Range Total Drain Duy Right;Outer Thigh 40 110 150 50 350 CONSTITUTIONAL State of health: acutely ill Level of consciousness: lethargic Distress: mild MUSCULOSKELETAL RLE Dressing C/D/I - drain in place and holding suction - output above. 150cc overnight. SILT s/s/sp/dp/tib nerve dist +EHL/FHL/Ankle dorsiflexion/plantarflexion Toes WWP Imaging: Intraop imaging reviewed and reveals antibiotic beads in the distal femur. No post-op imaging required Labs: Labs (3 Days) 12/26/2023 12/26/2023 12/25/2023 12/24/2023 12/24/2023 2023 12/22/2023 12/22/2023 7:38 AM 6:43 AM 6:55 AM 4:44 PM 5:31 AM 5:38 AM 11:14 PM 2:27 PM HGB 7.0 7.6 8.2 8.5 6.6 7.4 7.8 7.5 WBC 13.60 14.25 12.41 13.07 12.35 13.58 14.20 14.10 PLT 620 664 660 685 549 638 656 609 BUN -- 21 16 -- 13 12 -- -- CREAT -- 2.9 2.5 -- 2.0 1.5 -- -- Cultures: Recent Cultures (2 Weeks) 12/25/2023 12/25/2023 12/22/2023 12/22/2023 12/21/2023 12/21/2023 11:20 AM 11:19 AM 6:17 PM 12:06 AM 10:49 PM 10:46 PM FUNGUS STAIN DESCRIPTION -- -- No yeast or hyphae seen. -- -- -- FUNGUS CULTURE GROWTH -- -- No fungus isolated to date -- -- -- STAIN DESCRIPTION Occasional Polymorphonuclear leukocytes Many Polymorphonuclear leukocytes Few Polymorphonuclear leukocytes -- -- -- Few Gram positive cocci Few Gram positive cocci Many Gram positive cocci CULTURE GROWTH -- -- Few Staphylococcus aureus MRSA, This patient may require isolation. -- -- -- BLOOD CULTURE GROWTH -- -- -- -- No growth to date No growth to date QUANT URINE CULTURE GROWTH -- -- -- No significant growth -- -- Assessment/Plan: Mr. 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 Sheridan on OR date: 12/25/2023. - Tylenol 975 mg PO Q6H, Tylenol 650 mg PO Q6H PRN mild pain, Oxycodone 5-10 mg PO Q4H PRN moderateto severe pain, Tramadol 50 mg PO Q6H, Dilaudid 0.5 mg IV Q2H PRN breakthrough pain - Lower Right Extremity: toe touch weight bearing - OOB with assist - P.T./O.T. - keep dressing in place, reinforce dressing PRN - no plan for urgent OR at this time - regular diet, periop antibiotics - abx per ID (currently Vanc), TEDs, SCDs, DVT Proph per primary- Currently Heparin Disposition: pending Provisional care provided and general supervision by Dr. Wallace * Care Plan - Ramón Urban RN - 12/26/2023 3:08 AM EDT Clinical Goal(s): patient will remain injury free (12/26/23 0000) Possible barriers to meeting goal(s)/advancing plan of care: Falls Stability of the patient: Moderately unstable - medium risk of patient condition declining or worsening Summary regarding today's goal(s): Met: Recommendations: Hourly rounding and CVM * Care Plan - Delvis Luciano RN - 12/25/2023 7:32 PM EDT Problem: Risk for Infection & Contamination Goal: Staff & visitors will prevent transmission of infection. Outcome: Progressing Problem: Risk for Social Isolation Goal: Patient will be free of S&S of depression & social isolation. Outcome: Progressing Problem: Pain & Impaired Comfort Goal: Patient's pain & discomfort is manageable. Outcome: Progressing Clinical Goal(s): Pt will be free from falls during this shift. (12/25/23 1456) Possible barriers to meeting goal(s)/advancing plan of care: S/P surgery on RLE Stability of the patient: Moderately stable - low risk of patient condition declining or worsening Summary regarding today's goal(s): Met: No falls Recommendations: Continue current falls precautions. * Progress Notes - Post-Op Global - Edy Quintero MD - 12/25/2023 1:51 PM EDT Images from the original note were not included. Orthopaedic Progress [place] [facility] [place] [address] Name: Rogelio Barrera Location: [place] [facility] [place] Date: 12/25/2023 Time: 1:51 PM 24 hour events/Subjective: post-op check Objective: BP: 117 mmHg/57 mmHg (12/25/23 1345) Pulse: 71 (12/25/23 1345) Temp: 36.5 C (12/25/23 1330) Temp Summary: Temp Min: 36.3 C (97.3 F) Max: 37.5 C (99.5 F) SpO2: 97 % (12/25/23 1345) O2 flow rate: 2 L/MIN (12/25/23 1345) Supplemental O2 Delivery: Nasal Cannula (12/25/23 1345) Output by Drain (mL) 12/24/23 0700 - 12/24/23 1459 12/24/23 1500 - 12/24/23 2259 12/24/23 2300 - 12/25/23 0659 12/25/23 0700 - 12/25/23 1351 Range Total Requested LDAs do not have output data documented. CONSTITUTIONAL State of health: acutely ill Level of consciousness: lethargic Distress: mild MUSCULOSKELETAL RLE Dressing C/D/I - drain in place and holding suction SILT s/s/sp/dp/tib nerve dist +EHL/FHL/Ankle dorsiflexion/plantarflexion Toes WWP Imaging: Intraop imaging reviewed and reveals antibiotic beads in the distal femur Labs: Labs (3 Days) 12/25/2023 12/24/2023 12/24/2023 2023 12/22/2023 12/22/2023 12/22/2023 12/21/2023 6:55 AM 4:44 PM 5:31 AM 5:38 AM 11:14 PM 2:27 PM 5:52 AM 10:46 PM HGB 8.2 8.5 6.6 7.4 7.8 7.5 6.6 7.0 WBC 12.41 13.07 12.35 13.58 14.20 14.10 13.85 14.95 PLT 660 685 549 638 656 609 590 643 BUN 16 -- 13 12 -- -- 12 13 CREAT 2.5 -- 2.0 1.5 -- -- 1.4 1.3 Cultures: Recent Cultures (2 Weeks) 12/22/2023 12/22/2023 12/21/2023 12/21/2023 6:17 PM 12:06 AM 10:49 PM 10:46 PM FUNGUS STAIN DESCRIPTION No yeast or hyphae seen. -- -- -- FUNGUS CULTURE GROWTH No fungus isolated to date -- -- -- STAIN DESCRIPTION Few Polymorphonuclear leukocytes -- -- -- Many Gram positive cocci CULTURE GROWTH Few Staphylococcus aureus MRSA, This patient may require isolation. -- -- -- BLOOD CULTURE GROWTH -- -- No growth to date No growth to date QUANT URINE CULTURE GROWTH -- No significant growth -- -- Assessment/Plan: Mr. 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 Sheridan on OR date: 12/25/2023. - Tylenol 975 mg PO Q6H, Tylenol 650 mg PO Q6H PRN mild pain, Oxycodone 5-10 mg PO Q4H PRN moderateto severe pain, Tramadol 50 mg PO Q6H, Dilaudid 0.5 mg IV Q2H PRN breakthrough pain - Lower Right Extremity: toe touch weight bearing - OOB with assist - P.T./O.T. - keep dressing in place, reinforce dressing PRN - no plan for urgent OR at this time - regular diet, periop antibiotics - abx per ID (currently Vanc), TEDs, SCDs, DVT Proph per primary- Currently Heparin Disposition: pending Provisional care provided and general supervision by Dr. Sheridan * Care Plan - Delvis Luciano RN - 12/24/2023 7:57 PM EDT Problem: Risk for Infection & Contamination Goal: Staff & visitors will prevent transmission of infection. Outcome: Progressing Problem: Risk for Social Isolation Goal: Patient will be free of S&S of depression & social isolation. Outcome: Progressing Problem: Pain & Impaired Comfort Goal: Patient's pain & discomfort is manageable. Outcome: Progressing Clinical Goal(s): Pt will be free from falls during this shift (12/24/23 1135) Possible barriers to meeting goal(s)/advancing plan of care: Hospitalizations, +2 edema RLE, ambulate with a walker. Stability of the patient: Moderately stable - low risk of patient condition declining or worsening Summary regarding today's goal(s): Met: No falls Recommendations: Continue current falls precautions. * Ancillary Progress Note - Lynn Alexandre RN - 12/24/2023 10:29 AM EDT CARE MANAGEMENT - ADULT TRANSITION NOTE [facility] [place] [address] Name: Rogelio Barrera Location: [facility] [place] H678/A Date: 12/24/2023 Time: 10:29 AM Risk Stratification Risk Stratification Psycho Social / Medical Concerns Identified: Adjustment to illness/injury;Multiple Comorbidities (12/22/23 1015) Readmission Risk Score: 13.86 (12/24/23 0800) AM-PAC Score With Stairs : 18 (12/24/23 0100) Caregiver Information Patient Contacts Name Relation Home Work Mobile Frieda Urbina [phone] GaryТатьяна mcnulty Niece/Nephew [phone] Transition of Care Checklist Transition of Care Checklist (aka Readmission Risk Score) Discharge Disposition: Home w/Home Health (12/24/23 1028) Home or Home w/Home Health: Moderate (12-17%) (12/24/23 1028) Narrative: Patient discussed at IDT rounds, and per chart review, patient not medically stable for discharge. S/P right distal femur bone biopsy on 12/22/2023. Remains on heparin infusion. HGB this AM 6.6. Patient to receive one unit PRBC. No anticipated discharge date. CM will continue to follow. Anticipated Transportation at Discharge: family Patient/Family Expectations: return home Transition Planning Transition Planning Transition Plan/Considerations: Discussed at Interdisciplinary Team / Boost Rounds (12/24/23 1028) [facility] Quality Rating provided to patient: Yes (12/22/23 1016) Repisodic Choice provided to patient: No (12/24/23 1028) Transition plan discussed with - Enter name and phone #: with service at IDT rounds (12/24/23 1028) Insurance Considerations: N/A (12/24/23 1028) Referral to Community Agency : N/A (12/24/23 1028) Post-Acute Care needs identified and Referrals Completed: N/A (12/24/23 1028) Agency Choice Due to: Patient preference (12/23/23 1228) Additional Considerations: Care Management will continue to monitor and assist with discharge planning needs * Progress Notes - Post-Op Global - Edy Quintero MD - 12/24/2023 8:11 AM EDT Images from the original note were not included. Orthopaedic Progress Note [address] [address] Name: Rogelio Barrera Location: [facility] [place] H[facility]/A Date: 12/24/2023 Time: 8:11 AM 24 hour events/Subjective: No complaints denies ches tpain, SOB, fevers, n/v/d. Objective: BP: 130 mmHg/57 mmHg (12/24/23653) Pulse: 83 (12/24/23653) Temp: 35.39 C (12/24/23653) Temp Summary: Temp Min: 35.4 C (95.7 F) Max: 38.7 C (101.7 F) SpO2: 96 % (12/24/23653) O2 flow rate: 2 L/MIN (12/23/232324) Supplemental O2 Delivery: Room Air, None (12/24/23653) CONSTITUTIONAL State of health: acutely ill Level of consciousness: alert Distress: none MUSCULOSKELETAL RLE: dressing c/d/i SILT s/s/sp/dp/tib nerve dist +EHL/FHL/Ankle dorsiflexion/plantarflexion Toes WWP, cap refill 2+ Range of motion right knee 15 to 70 Imaging: N/a Labs: Labs (3 Days) 12/24/2023 2023 12/22/2023 12/22/2023 12/22/2023 12/21/2023 12/16/2023 07/09/2023 5:31 AM 5:38 AM 11:14 PM 2:27 PM 5:52 AM 10:46 PM 4:38 PM 1:15 PM HGB 6.6 7.4 7.8 7.5 6.6 7.0 9.4 16.6 WBC 12.35 13.58 14.20 14.10 13.85 14.95 19.98 7.11 PLT 549 638 656 609 590 643 611 249 BUN 13 12 -- -- 12 13 40 18 CREAT 2.0 1.5 -- -- 1.4 1.3 1.9 1.0 Cultures: Recent Cultures (2 Weeks) 12/22/2023 12/22/2023 12/21/2023 12/21/2023 6:17 PM 12:06 AM 10:49 PM 10:46 PM FUNGUS STAIN DESCRIPTION No yeast or hyphae seen. -- -- -- FUNGUS CULTURE GROWTH No fungus isolated to date -- -- -- STAIN DESCRIPTION Few Polymorphonuclear leukocytes -- -- -- Many Gram positive cocci CULTURE GROWTH Few Staphylococcus aureus -- -- -- BLOOD CULTURE GROWTH -- -- No growth to date No growth to date QUANT URINE CULTURE GROWTH -- No significant growth -- -- ID Type Source Tests Collected by Time Destination 1 : right distal femur Tissue Femur, Right SURGICAL PATHOLOGY Sebas Sheridan MD 12/22/20231813 2 : right distal femur #2 Tissue Femur, Right SURGICAL PATHOLOGY Sebas Sheridan MD 12/22/2023 182 A : right distal femur Tissue Femur, Right CULTURE,FUNGUS,NON-DERM, CULTURE, AFB, CULTURE, TISSUE, AEROBIC AND ANAEROBIC Sebas Sheridan MD 12/22/20231816 Assessment/Plan: Mr. Barrera is a/an 57 year old male s/p right distal femur bone biopsy by Dr. Sheridan on OR date: 12/22/2023. - Oxycodone 5-10 mg PO Q4H PRN moderate to severe pain - Lower Right Extremity: weight bearing as tolerated - OOB with assist - P.T./O.T. - reinforce dressing PRN - no plan for urgent OR at this time - regular diet, antibiotics per Inf Dis, TEDs, SCDs - culture showing Staph aureus Disposition: pending Provisional care provided and general supervision by Dr. Sheridan * Ancillary Progress Note - Joselyn Torres, GLOBAL ENGINEERING MANAGER - 2023 6:39 PM EDT PATIENT DRIVEN PROTOCOL - Respiratory Care Services [address] [address] Name: Rogelio Barrera [place]: [facility] [place] [facility]/[place] Date: 2023 Time: 6:39 PM Patient Driven Protocol Summary: Initial evaluation performed. This Treatment Plan and medications will be reviewed by the Primary Care Team for any contraindications. Respiratory Care Treatment Plan Pulmonary Volume Expansion Therapy: Incentive Spirometry PRN to prevent or treat alveolar consolidation and atelectasis. . Secretion Management Treatment: Flutter TherapyPRN to enhance mobilization of secretions. . The patient will be re-evaluated: No re-evaluation needed. Indications for treatment met. The Triage Level is: (Assessment Score = 6 -10) Level 4. Triage Level Definitions: Level 1 Severe Respiratory/Airway Compromise Level 2 Moderate Respiratory/Airway Compromise or high risk for pulmonary complications Level 3 Mild Respiratory/Airway Compromise or moderate risk for pulmonary complications Level 4 Episodic Respiratory/Airway Compromise or low risk for pulmonary complications Level 5 No Respiratory/Airway Compromise Triage 1 Triage 2 Triage 3 Triage 4 Triage 5 greater than 20 16 - 20 11 - 15 6 - 10 0 - 5 Medical Record Assessment Clinical Findings Pulmonary Status: 3 - Pulm Impairment (acute or chronic) w/o exacerbation, or 1 - 2 rib fractures Surgical Status: 1 - General Surgery Chest X-Ray: 0 - Not Performed or performed greater than 3 days ago Assessment Score: 4 Patient Assessment Clinical Findings Respiratory Pattern: 0 - RR 12 - 20; Patient only gets breathless with strenuous exercise. Breath Sounds: 2 - Diminished bilaterally Cough Effectiveness: 0 - Strong non-productive Sputum Production: 0 - No sputum production Level of Activity: 1 - Ambulatory with assist O2 needed to keep SpO2 greater than or equal to 92%: 0 - Room Air Assessment Score: 3 Total Assessment Score: 7 Breath Sounds: Inspiratory and expiratory diminished bilaterally.. Cough and Sputum: An effective cough produced no sputum... CXR: na. Vital Signs: Resp: 18 (12/23/231815) Pulse: 102 (12/23/231815) Temp: (!) 38.7 C (101.7 F) (12/23/231815) BP: 118/60 (12/23/231815) SpO2: 93 % (12/23/231815) PFT: Minimal Predicted IC: .0968 L. Inspiratory capacity: 3.000L. Patient unable to perform Inspiratory Capacity. Reason: . Primary Service: Med K. Admitting Diagnosis: Sepsis (HCC) [A41.9] MRSA bacteremia [R78.81, B95.62] Pulmonary Diagnosis: Obesity and OFELIA. Prescriptions/Home Medications/Durable Medical Equipment: Nocturnal bipap Per sleep study - required pressures -, recently decreased to .Per Note on 09-25-23 from Sleep disorders center. Recommended New home medications/durable medical equipment/outpatient pulmonary/sleep referral . 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 Other pertinent information: Unable to meet with pt today despite multiple attempts. PO diet is in place at this time, will monitor intake/tolerance of diet. No apparent issues with chewing or swallowing are noted at this time. No reports of N/V at present time. Last BM was on 12/22/23. Anthropometrics Measurements Admission weight (for dietitians): 88.5 kg Height: 167.6 cm (5' 6") (12/21/232147) Weight: 87.5 kg (193 lb) (12/22/23 0600) BMI: 31.49 (12/21/232147) Usual Body Weight or EDW for Dialysis Patients: Appears to be ~109-112 kg per [facility] Wt Readings from Last 5 Encounters: 12/22/23 87.5 kg (193 lb) 12/16/23 88.6 kg (195 lb 6.4 oz) 10/30/23 110.2 kg (243 lb) 09/18/23 112 kg (247 lb) 07/13/23 110.4 kg (243 lb 5 oz) Diet: Heart Healthy, 2 gm Sodium Previously followed diet: Regular Food Allergies/Intolerances: None known Oral Nutrition Supplement (ONS): None Pertinent medications/vitamins/minerals/supplements: N/A RISK FACTORS: Adult Energy Intake: Unable to obtain at present time Interpretation of Weight Change: Greater than 7.5% weight loss in 3 months (Severe) - Loss of ~22% X 3 months? Uncertain if weight change is accurate and if so, if there is a component of fluid given the sheer degree of weight change vs timeframe Skin: Compromise without nutrition-related implications - Surgical incision to R knee s/p biopsy NUTRITION RISK CATEGORY: Nutrition Risk Category: Unable to be determined Clinical Nutrition Recommendations: Diet: Continue current nutrition plan NUTRITION INTERVENTION/PLAN: Continue current care plan Will follow and adjust nutritional plan as medical condition requires. Please contact for change(s)in patient condition requiring earlier intervention. Jeremiah Willoughby RDN, CSG, LDN Clinical Dietitian II Clinical Nutrition Services [facility] / * Ancillary Progress Note - Lynn Alexandre RN - 2023 12:29 PM EDT CARE MANAGEMENT - ADULT TRANSITION NOTE [facility] [place] [address] Name: Rogelio Barrera Location: [facility] [place] H[facility]/A Date: 2023 Time: 12:29 PM Risk Stratification Risk Stratification Psycho Social / Medical Concerns Identified: Adjustment to illness/injury;Multiple Comorbidities (12/22/23 1015) Readmission Risk Score: 13.82 (12/23/23 1201) AM-PAC Score With Stairs : 18 (12/23/23 0800) Caregiver Information Patient Contacts Name Relation Home Work Mobile Frieda Urbina Sibling [phone] Татьяна Urbina Niece/Nephew [phone] Transition of Care Checklist Transition of Care Checklist (aka Readmission Risk Score) Discharge Disposition: Home w/Home Health (12/23/23 1228) Home or Home w/Home Health: Moderate (12-17%) (12/23/23 122) Narrative: Patient discussed at IDT rounds, and per chart review, patient not medically stable for discharge. S/P right distal femur bone biopsy on 12/22/2023. Currently on heparin infusion. Cultures obtained in OR. Results pending. No anticipated discharge date. CM will continue to follow. Anticipated Transportation at Discharge: family Patient/Family Expectations: home with services Transition Planning Transition Planning Transition Plan/Considerations: Discussed at Interdisciplinary Team / Boost Rounds (12/23/23 122) [facility] Quality Rating provided to patient: Yes (12/22/23 1016) Repisodic Choice provided to patient: No (12/23/23 122) Transition plan discussed with - Enter name and phone #: with service at IDT rounds (12/23/23 122) Insurance Considerations: N/A (12/23/23 122) Referral to Community Agency : N/A (12/23/23 122) Post-Acute Care needs identified and Referrals Completed: N/A (12/23/23 122) Agency Choice Due to: Patient preference (12/23/23 122) Additional Considerations: Care Management will continue to monitor and assist with discharge planning needs * Ancillary Progress Note - Alexandra Viera COTA/Jose - 2023 10:40 AM EDT PROGRESS NOTE - Occupational Therapy [facility] [place] [address] Name: Rogelio Barrera Location: [facility] [place] H678/A Date: 2023 Time: 1:42 PM Rogelio Barrera is a 57 year old male. Patient Status: Inpatient Insurance: Payor: [employer] FAMILY Plan: [employer] FAMILY PLAN WHIT-[place] Product Type: *No Product type* Patient Identified By: Name, ID Band and Date Diagnosis: sepsis (12/23/23 104) Status of treatment: Treatment completed (12/23/23 104) Orders: OT evaluation and treatment;OT OOB (12/22/23 1501) Weight Bearing Status: Non-weight bearing;RLE (12/23/23 1040) Precautions: Alarms;Falls;Safety (12/23/23 104) Total Treatment Time: 30 (12/23/23 104) Pain: Patient has complaints of pain. Pain located RLE. Observations Consciousness: Alert (12/23/23 104) Orientation: Oriented times 4 (12/23/231039) Psychosocial: Patient can communicate basic needs;Patient can converse in a social setting (12/23/23 104) Sitting posture: Forward head;Rounded shoulders (12/23/23 104) Standing posture: Forward head;Rounded shoulders (12/23/23 104) Safety awareness: The Patient can communicate basic needs.;Needs cueing supervision. (12/23/23 104) Other Findings Light touch sensation: LUE;RUE;Intact (12/22/23 1501) Coordination: LUE;RUE;Intact (12/22/23 1501) Current Functional Status: Activities of Daily Living: Self Care Able to provide self care: Yes (12/23/23 104) Grooming: Supervision (Please comment) (12/23/23 104) Dressing Upper Body: Supervision (Please comment) (for gown) (12/23/23 104) Lower Body: Supervision (Please comment) (for pants and socks) (12/23/23 104) Bathing Upper Body: Supervision (Please comment) (12/23/23 104) Lower Body: Minimal Assistance (RLE) (12/23/23 104) Functional Ambulation Assistive Device: Rolling walker (12/23/231039) Distance in feet:: 25 (x2) (12/23/231039) Level of Assistance: Supervision (Please Comment) (12/23/23 104) Bed Mobility Supine-Sit: Supervision (Please comment) (12/23/23 104) OT Transfers Sit-Stand: Supervision (Please comment) (12/23/231039) Stand-Sit: Supervision (Please comment) (12/23/231039) Bed-Chair: Supervision (Please comment) (12/23/231039) Balance Sit (Static): Fair (12/23/231039) Sit (Dynamic): Fair (12/23/231039) Stand (Static): Fair (12/23/231039) Stand (Dynamic): Fair (12/23/231039) Patient Education Education Topic: Role of OT;Plan of care goals (12/23/231039) Review of Precautions: Safety;Fall (12/23/231039) Method of Education: Verbalized to patient (12/23/231039) Education Provided to: Patient (12/23/231039) Response to Education: Receptive and agreeable to education (12/23/231039) Barriers to learning: None (12/23/231039) Preferred learning method: Combination (12/23/231039) Alarm Status Patient positioned in: Chair (12/23/231039) With: Pressure pad alarm intact and functioning and call gtz in reach (12/23/231039) Following session patient seated OOB in chair with chair alarm activated and cord plugged into callbell system. Treatment Provided: Self Skilled Nursing Management Trainin minutes Deficits requiring O.T. treatment needs: ADL/self- care;Balance;Endurance;Functional mobility;IADL;Safety;Upper extremity strength;Weakness (12/23/231039) Assessment: Patient in bed upon arrival. Patient performed bed mobility, functional transfers, and functional mobility using rolling walker supervision, able to maintain NWB on RLE. Patient completedADL's at the above levels, seated in bathroom. Tolerated session well. Please consider home with post-acute care services which may include home health or outpatient therapy. The level of care will be determined in collaboration with the patient, family/caregiver and care team members. Plan: Continue with plan of care Anticipated Frequency (on eval): 1 to 3 times per week (12/22/23 1501) Equipment Equipment used in Therapy: Rolling walker (12/23/231039) AM-PAC Help From Another Person Eating Meals: None (12/23/231039) Help From Another Person Taking Care of Personal Grooming: None (12/23/231039) Help From Another Person To Put On/Take Off Upper Body Clothing: A little (12/23/231039) Help From Another Person To Put On/Take Off Lower Body Clothing: A little (12/23/231039) Help From Another Person Toileting: A little (12/23/231039) Help From Another Person Bathing: A little (12/23/231039) OT AM-PAC Score: 20 (12/23/231039) OT AM-PAC t-Scale Score: 42.03 (12/23/231039) HLM (Highest Level of Mobility) Goal: Level 6 walk 10 steps or more (12/23/23799) A portion of this AM-PAC assessment not scored based on functional assessment , rather clinical decision making utilized based on current findings and/or prior level of function. Please refer to future AM-PAC calculations of functional ability as they become available. * Progress Notes - Post-Op Global - Tokash, Edy Bravo MD - 2023 8:54 AM EDT Images from the original note were not included. Orthopaedic Progress Note [address] [address] Name: Rogelio Barrera [place] [facility] [place] H678/[place] Date: 2023 Time: 8:54 AM 24 hour events/Subjective: Doing well overall. Has some pain in right leg, also has stiffness. Denies fevers, chest pain, shortness of breath Objective: BP: 126 mmHg/61 mmHg (12/23/23729) Pulse: 90 (12/23/23729) Temp: 37.83 C (12/23/23729) Temp Summary: Temp Min: 36.7 C (98.1 F) Max: 38.4 C (101.2 F) SpO2: 93 % (12/23/23729) O2 flow rate: 2 L/MIN (12/22/232099) Supplemental O2 Delivery: Room Air, None (12/23/23729) CONSTITUTIONAL State of health: acutely ill Level of consciousness: alert Distress: none MUSCULOSKELETAL RLE: dressing c/d/i SILT s/s/sp/dp/tib nerve dist +EHL/FHL/Ankle dorsiflexion/plantarflexion Toes WWP, cap refill 2+ Range of motion right knee 15 to 70 Imaging: N/a Labs: Labs (3 Days) 2023 12/22/2023 12/22/2023 12/22/2023 12/21/2023 12/16/2023 07/09/2023 11/10/2021 5:38 AM 11:14 PM 2:27 PM 5:52 AM 10:46 PM 4:38 PM 1:15 PM HGB 7.4 7.8 7.5 6.6 7.0 9.4 16.6 -- WBC 13.58 14.20 14.10 13.85 14.95 19.98 7.11 -- PLT 638 656 609 590 643 611 249 -- BUN 12 -- -- 12 13 40 18 -- CREAT 1.5 -- -- 1.4 1.3 1.9 1.0 1.01 Cultures: Recent Cultures (2 Weeks) 12/22/2023 12/22/2023 12/21/2023 12/21/2023 6:17 PM 12:06 AM 10:49 PM 10:46 PM FUNGUS STAIN DESCRIPTION No yeast or hyphae seen. -- -- -- FUNGUS CULTURE GROWTH No fungus isolated to date -- -- -- STAIN DESCRIPTION Few Polymorphonuclear leukocytes -- -- -- Many Gram positive cocci BLOOD CULTURE GROWTH -- -- No growth to date No growth to date QUANT URINE CULTURE GROWTH -- No significant growth -- -- ID Type Source Tests Collected by Time Destination 1 : right distal femur Tissue Femur, Right SURGICAL PATHOLOGY Sebas Sheridan MD 12/22/20231813 2 : right distal femur #2 Tissue Femur, Right SURGICAL PATHOLOGY Sebas Sheridan MD 12/22/2023 182 A : right distal femur Tissue Femur, Right CULTURE,FUNGUS,NON-DERM, CULTURE, AFB, CULTURE, TISSUE, AEROBIC AND ANAEROBIC Sebas Sheridan MD 12/22/20231816 Assessment/Plan: Mr. Barrera is a/an 57 year old male s/p right distal femur bone biopsy by Dr. Sheridan on OR date: 12/22/2023. - Oxycodone 5-10 mg PO Q4H PRN moderate to severe pain - Lower Right Extremity: weight bearing as tolerated - OOB with assist - P.T./O.T. - reinforce dressing PRN - no plan for urgent OR at this time - regular diet, antibiotics per Inf Dis, TEDs, SCDs - culture showing Gram-positive cocci Disposition: pending Provisional care provided and general supervision by Dr. Sheridan * Care Plan - Whit Brice RN - 2023 7:05 AM EDT Clinical Goal(s): Pt will remain free from fall this shift (12/22/23 2300) Possible barriers to meeting goal(s)/advancing plan of care: pin, weakness, post op Stability of the patient: Moderately stable - low risk of patient condition declining or worsening Summary regarding today's goal(s): Met: No falls this shift Recommendations: continue with the plan of care, fall precaution. * Progress Notes - Post-Op Global - Edy Quintero MD - 12/22/2023 8:16 PM EDT Images from the original note were not included. Orthopaedic Progress [place] [facility] [place] [address] Name: Rogelio Barrera Location: [facility] [place] H678/A Date: 12/22/2023 Time: 8:16 PM 24 hour events/Subjective: post-op check Objective: BP: 107 mmHg/60 mmHg (12/22/232002) Pulse: 111 (12/22/232002) Temp: 36.72 C (12/22/232002) Temp Summary: Temp Min: 36.7 C (98.1 F) Max: 38.4 C (101.2 F) SpO2: 91 % (12/22/232002) O2 flow rate: 2 L/MIN (12/22/232002) Supplemental O2 Delivery: Nasal Cannula (12/22/232002) CONSTITUTIONAL State of health: acutely ill Level of consciousness: alert Distress: none MUSCULOSKELETAL RLE: dressing c/d/i SILT s/s/sp/dp/tib nerve dist +EHL/FHL/Ankle dorsiflexion/plantarflexion Toes WWP Imaging: N/a Labs: Labs (3 Days) 12/22/2023 12/22/2023 12/21/2023 12/16/2023 07/09/2023 11/10/2021 08/28/2020 08/23/2019 2:27 PM 5:52 AM 10:46 PM 4:38 PM 1:15 PM 9:47 AM HGB 7.5 6.6 7.0 9.4 16.6 -- -- -- WBC 14.10 13.85 14.95 19.98 7.11 -- -- -- PLT 609 590 643 611 249 -- -- -- BUN -- 12 13 40 18 -- -- 14 CREAT -- 1.4 1.3 1.9 1.0 1.01 1.00 1.1 Cultures: Recent Cultures (2 Weeks) 12/21/2023 12/21/2023 10:49 PM 10:46 PM BLOOD CULTURE GROWTH No growth to date No growth to date ID Type Source Tests Collected by Time Destination 1 : right distal femur Tissue Femur, Right SURGICAL PATHOLOGY Sebas Sheridan MD 12/22/20231813 2 : right distal femur #2 Tissue Femur, Right SURGICAL PATHOLOGY Sebas Sheridan MD 12/22/2023 182 A : right distal femur Tissue Femur, Right CULTURE,FUNGUS,NON-DERM, CULTURE, AFB, CULTURE, TISSUE, AEROBIC AND ANAEROBIC Sebas Sheridan MD 12/22/20231816 Assessment/Plan: Mr. Barrera is a/an 57 year old male s/p right distal femur bone biopsy by Dr. Sheridan on OR date: 12/22/2023. - Oxycodone 5-10 mg PO Q4H PRN moderate to severe pain - Lower Right Extremity: weight bearing as tolerated - OOB with assist - P.T./O.T. - reinforce dressing PRN - no plan for urgent OR at this time - regular diet, periop antibiotics, TEDs, SCDs Disposition: pending Provisional care provided and general supervision by Dr. Sheridan * Ancillary Progress Note - Sol Soto RN - 12/22/2023 10:16 AM EDT CARE MANAGEMENT - ADULT INITIAL SCREENING [address] [address] Name: Rogelio Barrera [place] [facility] [place] H678/A Date: 12/22/2023 Time: 10:16 AM Discussed patient with the interdisciplinary care team. This Transfusion Aide performed a chart review and met with Rogelio at bedside to complete admission screen and assessed needs for transition planning. The customer care agent role and services were explained and emotional support was provided. Chief Complaint: No chief complaint on file. Prior Living Arrangements What was your living situation prior to admission/observation?: Independently;With Parent () Living Quarters: House (12/22/231014) Number of steps to enter living quarters:: 5-6 (12/22/231014) Do you have serious difficulty walking or climbing stairs? (5 years old or older): No (12/21/232147) History of falling: No (12/21/232147) Prior Level of Functioning Describe the patient's ability prior to admission/observation to perform ADLs: Performs independently (12/22/231014) Describe the patient's mobility status prior to admission: Patient ambulates independently (12/22/231014) Patient uses assistive device: Yes (12/22/231014) If yes, choose:: Other (Rollator) (12/22/231014) Caregiver Information Patient Contacts Name Relation Home Work Mobile Frieda Urbina [phone] Татьяна Urbina Niece/Nephew [phone] Risk Stratification/Psychosocial/Care Gaps Risk Stratification Psycho Social / Medical Concerns Identified: Adjustment to illness/injury;Multiple Comorbidities (04/02/24 1015) Readmission Risk Score: 13.88 (12/22/23 0801) AM-PAC Score With Stairs : 15 (12/21/238) Prior to Admission Services Services Prior to Admission 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 of Aging (PDA) Waiver Program: N/A (12/22/23 1015) COMPUTER SYSTEMS DESIGNER Transportation (Services received within the last 30 days): Patient drives self;Family/Friends Personal Vehicle (12/22/23 101) Outpatient Transfusion Aide: No care donor services team leader to display Patient/Family Expectations: Patient anticipates returning home at time of discharge. He is reportedly being independent without device. He lives with his 94 yo father whom he takes care of. 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 He has been ambulating with a RW. He is aware of the potential need for fci IVabx. He is in agreement with referral to [facility]. He would like referrals to [facility], [facility] or [facility]. He states his brother and sister live nearby and are able to assist with home infusion. [facility] [address] [facility] [address] | [phone] [facility] [address] [facility] [address] | [phone] [facility] [address] [facility] [address] | [phone] [facility] [address] [facility] [address] | [phone] For further screening information, please refer to the Care Management flow document. * Care Plan - Roni Ingram RN - 12/22/2023 7:44 AM EDT Clinical Goal(s): Paitent will maintain an SPo2 greater than 90% during shift. (12/21/230) Possible barriers to meeting goal(s)/advancing plan of care: DVT Stability of the patient: Moderately stable - low risk of patient condition declining or worsening Summary regarding today's goal(s): Met: Patient maintained adequate SPO2 reading Recommendations: Continue therapy documented in this encounter Plan of Treatment Upcoming Encounters Date Type Department Care Team (Late st Contact Info) Description 01/04/2024 3:30 PM EDT Office Visit Orthopaedics, [place] [address] [place] [address] Sebas Sheridan MD [facility] [place] [address] 01/20/2024 11:20 AM EDT Office Visit [address] [phone] Raul Drummond MD [address] [place] [address] [place] [address] 02/02/2024 9:20 AM EDT Office Visit Nephrology, [place] [address] [place] [address] Ricardo Kolb MD [facility] [address] [facility] [place] [address] 03/15/2024 1:20 PM EDT Office Visit Sleep Disorders [facility] [address] [place] [phone] Madai Rousseau DO [address] [place] [address] 03/17/2024 10:40 AM EDT Office Visit Family [address] [place] [phone] Raul Drummond MD [address] [place] [address] [place] [address] Pending Results Name Type Priority Associated Diagnoses Date /Time CULTURE,FUNGUS,NON -DERM Lab Routine Pain 12/22/2023 6:17 PM EDT CULTURE, AFB Lab Routine Pain 12/22/2023 6:17 PM EDT IR VENOUS ACCESS NON-MEDIPORT Medical Imaging Routine 12/31/2023 3:37 PM EDT Scheduled Orders Name Type Priority Associated Diagnoses Orde r Schedule CULTURE, WOUND, DEEP, AEROBIC AND ANAEROBIC Lab Routine One Time f or 1 Occurrences starting 12/22/2023 until 12/22/2023 CULTURE, AFB Lab Routine One Time for 1 Occurrences starting 12/22/2023 until 12/22/2023 CULTURE,FUNGUS,NON-DE RM Lab Routine One Time for 1 Occurrences starting 12/22/2023 until 12/22/2023 IR VENOUS ACCESS NON-MEDIPORT Medical Imaging Routine One Time for 1 Occurrences starting 12/30/2023 until 12/30/2023 CBC WITH WBC DIFFERENTIAL Lab Routine 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 DICK (acute kidney injury) (HCC) Acute deep vein thrombosis (DVT) of right lower extremity, unspecified vein (HCC) Expected: 01/11/2024, Expires: 12/31/2024 CK Lab Routine 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 DICK (acute kidney injury) (HCC) Acute deep vein thrombosis (DVT) of right lower extremity, unspecified vein (HCC) Expected: 01/11/2024, Expires: 12/31/2024 COMPREHENSIVE METABOLIC PANEL Lab Routine 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 DICK (acute kidney injury) (HCC) Acute deep vein thrombosis (DVT) of right lower extremity, unspecified vein (HCC) Expected: 01/11/2024, Expires: 12/31/2024 CBC WITH WBC DIFFERENTIAL Lab Routine MRSA bacteremia 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) Acute deep vein thrombosis (DVT) of right lower extremity, unspecified vein (HCC) Pelvic abscess in male (HCC) Expected: 01/18/2024, Expires: 12/31/2024 COMPREHENSIVE METABOLIC PANEL Lab Routine MRSA bacteremia 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) Acute deep vein thrombosis (DVT) of right lower extremity, unspecified vein (HCC) Pelvic abscess in male (HCC) Expected: 01/18/2024, Expires: 12/31/2024 CK Lab Routine MRSA bacteremia 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) Acute deep vein thrombosis (DVT) of right lower extremity, unspecified vein (HCC) Pelvic abscess in male (HCC) Expected: 01/18/2024, Expires: 12/31/2024 Health Maintenance Due Date Last Done Comments Pneumococcal Vaccine: Pediatrics (0 to 5 Years) and At-Risk Patients (6 to 64 Years) (1 of 2 - PCV) 1972 HIV Screening 1981 Hepatitis B (1 of 3 - 19+ 3-dose series) 1985 Cologuard 12/24/2011 Fecal Occult Blood Test 12/24/2011 Sigmoidoscopy 12/24/2011 Depression Screening 08/23/2021 08/23/2020 Albumin/Creatinine Ratio 11/10/2024 11/10/2021, 05/2020 GFR 01/01/2025 01/02/2024, 12/20, 12/31/2023, Additional history exists Diabetes Screening 01/01/2027 01/02/2024, 0 01/01/2024, 12/31/2023, Additional history exists Lipid Panel 07/09/2028 07/09/2023, 10/23, 08/28/2020, Additional history exists DTaP,Tdap,and Td Vaccines (3 - Td or Tdap) 07/30/2028 07/30/2018, 01/11/2008 Colonoscopy 03/04/2029 03/04/2019 Colorectal Cancer Screening 03/04/2029 Zoster Vaccines Completed 10/02/2021, 08/01/2021 Influenza Vaccine (FLU shot) Completed 03/2023, 06/28/2022, 07/21/2021, Additional history exists COVID-19 Vaccine Completed 07/13/2023, , 01/28/2022, Additional history exists GARDASIL-HPV IMMUNIZATION SERIES Aged Out No longer eligible based on patient's age to complete this topic MENINGOCOCCAL (MENACTRA/MENVEO) Aged Out No longer eligible based on patient's age to complete this topic documented as of this encounter Medical Devices Implanted Type Area Desk Pen Set Assembler Device Identifier Shelf Expiration Date Model / Serial / Lot Cement Antibiotic Bone - [id number] - [id number] Implanted:Qty: 1 on 12/25/2023 by Sebas Sheridan MD [place] [facility] [place] Right: Hip [employer] : ORTHOPAEDICS 11/18/2024 [id number] / [id number] / [id number] Description:17 beads made wi th the cement and placed in the canal. Cath Cv Lumen Single 5fr - [id number] Implanted:Qty: 1 on 12/31/2023 at [facility] CR BARD : PERIPHERAL VASCULAR [id number] 04/20/2028 [id number] / / [id number] documented as of this encounter Procedures Procedure Name Priority Date/Time Associated Diagnosis Comments CRP (INFLAMMATORY MARKER) Routine 01/02/2024 6:42 AM EDT RENAL FUNCTION PANEL Routine 01/02/2024 6:42 AM EDT PT INR Routine 01/02/2024 6:42 AM EDT CBC STAT 01/02/2024 6:42 AM EDT HEPARIN, UNFRACTIONATED STAT 01/01/20 9:54 PM EDT HGB Routine 01/01/2024 7:51 PM EDT HCT Routine 01/01/2024 7:51 PM EDT HEPARIN, UNFRACTIONATED STAT 01/01/20 4:11 PM EDT HEPARIN, UNFRACTIONATED Routine 01/01/20 24 8:41 AM EDT CRP (INFLAMMATORY MARKER) Routine 01/01/2024 6:28 AM EDT RENAL FUNCTION PANEL Routine 01/01/2024 6:28 AM EDT PT INR Routine 01/01/2024 6:27 AM EDT CBC STAT 01/01/2024 6:27 AM EDT HEPARIN, UNFRACTIONATED STAT 01/01/20 2:14 AM EDT HEPARIN, UNFRACTIONATED Routine 01/01/20 12:52 AM EDT HEPARIN, UNFRACTIONATED STAT 12/31/19 5:53 PM EDT ANE GHS CENTRAL LINE Routine 12/31/2023 2:26 PM EDT CRP (INFLAMMATORY MARKER) Routine 12/31/2023 6:38 AM EDT RENAL FUNCTION PANEL Routine 12/31/2023 6:38 AM EDT HEPARIN, UNFRACTIONATED STAT 12/31/19 6:38 AM EDT CK Add-on 12/31/2023 6:38 AM EDT PT INR Routine 12/31/2023 6:38 AM EDT CBC STAT 12/31/2023 6:38 AM EDT HEPARIN, UNFRACTIONATED STAT 12/30/19 8:14 PM EDT HEPARIN, UNFRACTIONATED STAT 12/30/19 3:35 PM EDT HGB Routine 12/30/2023 1:41 PM EDT HCT Routine 12/30/2023 1:41 PM EDT TRANSFUSE PACKED RED BLOOD CELLS Routine 12/30/2023 10:06 AM EDT HC COMPATIBILITY ELECTRONIC CROSSMATCH Routine 12/30/2023 9:20 AM EDT HC COMPATIBILITY ELECTRONIC CROSSMATCH Routine 12/30/2023 7:35 AM EDT CRP (INFLAMMATORY MARKER) Routine 12/30/2023 6:17 AM EDT RENAL FUNCTION PANEL Routine 12/30/2023 6:17 AM EDT HEPARIN, UNFRACTIONATED Routine 12/30/19 6:17 AM EDT FOLIC ACID Add-on 12/30/2023 6:17 AM EDT IRON SCREEN, INCLUDING TIBC Add-on 12/30/2023 6:17 AM EDT PT INR Routine 12/30/2023 6:17 AM EDT CBC STAT 12/30/2023 6:17 AM EDT FERRITIN Add-on 12/30/2023 6:17 AM EDT VITAMIN B12 Add-on 12/30/2023 6:17 AM EDT URINE PROTEIN ELECTROPHORESIS REFLEX PROFILE, RANDOM URINE Routine 12/29/2023 11:23 AM EDT SERUM IMMUNOFIXATION Routine 12/29/2023 10:33 AM EDT TYPE AND SCREEN Routine 12/29/2023 10:33 AM EDT CRP (INFLAMMATORY MARKER) Routine 12/29/2023 7:20 AM EDT RENAL FUNCTION PANEL Routine 12/29/2023 7:20 AM EDT HEPARIN, UNFRACTIONATED Routine 12/29/19 7:20 AM EDT CK Routine 12/29/2023 7:20 AM EDT PT INR Routine 12/29/2023 7:20 AM EDT CBC STAT 12/29/2023 7:20 AM EDT VANCOMYCIN RANDOM Timed 12/28/2023 7:0 8 AM EDT CRP (INFLAMMATORY MARKER) Add-on 12/28/2023 7:08 AM EDT RENAL FUNCTION PANEL Routine 12/28/2023 7:08 AM EDT HEPARIN, UNFRACTIONATED Routine 12/28/19 7:08 AM EDT PT INR Routine 12/28/2023 7:08 AM EDT CBC STAT 12/28/2023 7:08 AM EDT HEPARIN, UNFRACTIONATED STAT 12/27/19 3:37 PM EDT HEPARIN, UNFRACTIONATED STAT 12/27/19 8:55 AM EDT VANCOMYCIN RANDOM Add-on 12/27/2023 6:3 2 AM EDT RENAL FUNCTION PANEL Routine 12/27/2023 6:32 AM EDT PT INR Routine 12/27/2023 6:32 AM EDT CBC STAT 12/27/2023 6:32 AM EDT HEPARIN, UNFRACTIONATED STAT 12/27/19 2:21 AM EDT HEPARIN, UNFRACTIONATED STAT 12/26/19 8:16 PM EDT CBC STAT 12/26/2023 8:16 PM EDT HC ECG TRACING ONLY Routine 12/26/2023 7 :50 PM EDT Electrolyte abnormality HEPARIN, UNFRACTIONATED STAT 12/26/19 24 2:17 PM EDT US RENAL Routine 12/26/2023 9:36 AM EDT URINALYSIS, REFLEX TO CULTURE Routine 12/26/2023 8:44 AM EDT URINALYSIS, REFLEX TO CULTURE (CUP ONLY) Routine 12/26/2023 8:44 AM EDT URINALYSIS, REFLEX TO CULTURE (NOT FOR NEUTROPENIC PATIENTS) Routine 12/26/2023 8:44 AM EDT UREA NITROGEN, RANDOM URINE Routine 12/26/2023 8:44 AM EDT PROTEIN/ CREATININE RATIO, URINE Routine 12/26/2023 8:44 AM EDT SODIUM, RANDOM URINE Routine 12/26/2023 8:44 AM EDT HEPARIN, UNFRACTIONATED STAT 12/26/19 24 7:38 AM EDT PT INR STAT 12/26/2023 7:38 AM EDT APTT STAT 12/26/2023 7:38 AM EDT CBC STAT 12/26/2023 7:38 AM EDT RENAL FUNCTION PANEL Routine 12/26/2023 6:43 AM EDT COMPLEMENT C4 Add-on 12/26/2023 6:43 AM EDT PT INR Routine 12/26/2023 6:43 AM EDT CBC STAT 12/26/2023 6:43 AM EDT BLOOD GAS, VENOUS STAT 12/25/2023 11: 25 PM EDT XR INTRA-OP C-ARM CASE Routine 12:20 PM EDT GLUCOSE METER, POINT OF CARE IVON 12/25/2023 12:07 PM EDT SURGICAL PATHOLOGY Routine 12/25/2023 11 :52 AM EDT MRSA bacteremia CULTURE, TISSUE, AEROBIC AND ANAEROBIC Routine 12/25/2023 11:20 AM EDT MRSA bacteremia CULTURE, TISSUE, AEROBIC AND ANAEROBIC Routine 12/25/2023 11:19 AM EDT MRSA bacteremia GLUCOSE METER, POINT OF CARE IVON 12/25/2023 9:01 AM EDT PARTIAL REMOVAL OF LEG BONE(S) 12/25/2023 8:15 AM EDT MRSA bacteremia HC COMPATIBILITY ELECTRONIC CROSSMATCH STAT 12/25/2023 7:55 AM EDT VANCOMYCIN RANDOM Add-on 12/25/2023 6:5 5 AM EDT RENAL FUNCTION PANEL Routine 12/25/2023 6:55 AM EDT HEPARIN, UNFRACTIONATED Routine 12/25/19 6:55 AM EDT PT INR Routine 12/25/2023 6:55 AM EDT CBC STAT 12/25/2023 6:55 AM EDT HEPARIN, UNFRACTIONATED STAT 12/24/19 10:10 PM EDT HEPARIN, UNFRACTIONATED Timed 12/24/19 4:44 PM EDT TYPE AND SCREEN Routine 12/24/2023 4:44 PM EDT CBC Routine 12/24/2023 4:44 PM EDT TRANSFUSE PACKED RED BLOOD CELLS Routine 12/24/2023 11:36 AM EDT VANCOMYCIN RANDOM Routine 12/24/2023 11: 26 AM EDT HEPARIN, UNFRACTIONATED Routine 12/24/19 8:38 AM EDT HC COMPATIBILITY ELECTRONIC CROSSMATCH Routine 12/24/2023 7:45 AM EDT RENAL FUNCTION PANEL Routine 12/24/2023 5:31 AM EDT PT INR Routine 12/24/2023 5:31 AM EDT CBC STAT 12/24/2023 5:31 AM EDT HEPARIN, UNFRACTIONATED Routine 12/24/19 1:45 AM EDT HEPARIN, UNFRACTIONATED Routine 12/23/19 9:07 PM EDT HEPARIN, UNFRACTIONATED Routine 12/23/19 1:25 PM EDT VANCOMYCIN RANDOM Routine 2023 5:3 8 AM EDT RENAL FUNCTION PANEL Routine 2023 5:38 AM EDT HEPARIN, UNFRACTIONATED STAT 12/23/19 5:38 AM EDT PT INR Routine 2023 5:38 AM EDT CBC STAT 2023 5:38 AM EDT HEPARIN, UNFRACTIONATED Routine 12/22/19 11:14 PM EDT CBC Routine 12/22/2023 11:14 PM EDT XR INTRA-OP C-ARM CASE Routine 04/02/202 4 7:08 PM EDT CULTURE, TISSUE, AEROBIC AND ANAEROBIC Routine 12/22/2023 6:17 PM EDT Pain CULTURE, AFB Routine 12/22/2023 6:17 PM EDT Pain CULTURE,FUNGUS,NON-DERM Routine 12/22/19 6:17 PM EDT Pain SURGICAL PATHOLOGY Routine 12/22/2023 6: 14 PM EDT Pain BONE BIOPSY, TROCAR/NEEDLE, DEEP 12/22/2023 5:18 PM EDT Pain HEPARIN, UNFRACTIONATED STAT 12/22/19 3:33 PM EDT CBC Routine 12/22/2023 2:27 PM EDT GLUCOSE METER, POINT OF CARE IVON 12/22/2023 2:04 PM EDT VANCOMYCIN RANDOM Timed 12/22/2023 11: 03 AM EDT TRANSFUSE PACKED RED BLOOD CELLS Routine 12/22/2023 10:41 AM EDT HC COMPATIBILITY ELECTRONIC CROSSMATCH Routine 12/22/2023 7:40 AM EDT BASIC METABOLIC PANEL Routine 12/22/2023 5:52 AM EDT HEPARIN, UNFRACTIONATED STAT 12/22/19 5:52 AM EDT PT INR Routine 12/22/2023 5:52 AM EDT CBC STAT 12/22/2023 5:52 AM EDT URINALYSIS, REFLEX TO CULTURE Routine 12/22/2023 12:06 AM EDT URINALYSIS, REFLEX TO CULTURE (CUP ONLY) Routine 12/22/2023 12:06 AM EDT URINALYSIS, REFLEX TO CULTURE (NOT FOR NEUTROPENIC PATIENTS) Routine 12/22/2023 12:06 AM EDT MRSA SCREEN, PCR Routine 12/22/2023 12:0 6 AM EDT CULTURE, URINE, QUANTITATIVE Routine 12/22/2023 12:06 AM EDT CULTURE, BLOOD STAT 12/21/2023 10:49 PM EDT DIFFERENTIAL, AUTOMATED STAT 12/21/19 10:46 PM EDT TROPONIN T, HIGH SENSITIVITY STAT 12/21/2023 10:46 PM EDT PROCALCITONIN STAT 12/21/2023 10:46 PM EDT BLOOD GAS, VENOUS STAT 12/21/2023 10: 46 PM EDT VANCOMYCIN RANDOM Add-on 12/21/2023 10: 46 PM EDT HEPATIC FUNCTION PANEL STAT 10:46 PM EDT BASIC METABOLIC PANEL STAT 12/21/2023 10:46 PM EDT HEPARIN, UNFRACTIONATED STAT 12/21/19 10:46 PM EDT ABO/RH STAT 12/21/2023 10:46 PM EDT TYPE AND SCREEN STAT 12/21/2023 10:46 PM EDT CBC STAT 12/21/2023 10:46 PM EDT PT INR STAT 12/21/2023 10:46 PM EDT PHOSPHORUS STAT 12/21/2023 10:46 PM EDT LACTATE STAT 12/21/2023 10:46 PM EDT CULTURE, BLOOD STAT 12/21/2023 10:46 PM EDT APTT STAT 12/21/2023 10:46 PM EDT CBC STAT 12/21/2023 10:46 PM EDT MAGNESIUM STAT 12/21/2023 10:46 PM EDT documented in this encounter Results * (ABNORMAL) CRP (INFLAMMATORY MARKER) (01/02/2024 6:42 AM EDT) Pathologist [facility] CRP (Inflammatory Marker) 51(H) <=5 mg/L 01/02/2024 7:46 AM EDT LABORATORY [facility] Blood Venous blood specimen / Unknown Venipuncture / Unknown 01/02/2024 6:42 AM EDT 01/02/2024 7:15 AM EDT Edy Quintero MD LAB BLOOD ORDERAB LES LABORATORY [facility] [place] [address] [place] [address] * (ABNORMAL) RENAL FUNCTION PANEL (01/02/2024 6:42 AM EDT) Pathologist [facility] BUN 25(H) 6 - 20 mg/dL 01/02/2024 7:46 AM EDT LABORATORY [facility] Creatinine 3.2(H) 0.6 - 1.2 mg/dL 01/02/2024 7:46 AM EDT LABORATORY [facility] Estimated Glomerular Filtration Rate 21(L) >=60 mL/min 01/02/2024 7:46 AM EDT LABORATORY [facility] Comment:eGFR is calculated b ased on the CKD-EPI 2020 equation Sodium 138 135 - 146 mmol/L 01/02/2024 7:46 AM EDT LABORATORY [facility] Potassium 4.0 3.5 - 5.1 mmol/L 01/02/2024 7:46 AM EDT [facility] Chloride 104 98 - 107 mmol/L 01/02/2024 7:46 AM EDT [facility] CO2 24 22 - 32 mmol/L 01/02/2024 7:46 AM EDT [facility] Anion Gap 10 7 - 15 mmol/L 01/02/2024 7:46 AM EDT [facility] Glucose 114 70 - 120 mg/dL 01/02/2024 7:46 AM EDT [facility] Calcium 8.4 8.4 - 10.2 mg/dL 01/02/2024 7:46 AM EDT [facility] Albumin 2.6(L) 3.8 - 5.0 g/dL 01/02/2024 7:46 AM EDT [facility] Phosphorus 3.9 2.5 - 4.8 mg/dL 01/02/2024 7:46 AM EDT [facility] Blood Venous blood specimen / Unknown Venipuncture / Unknown 01/02/2024 6:42 AM EDT 01/02/2024 7:15 AM EDT Sia Peres PA-C LAB BLOOD ORDE RABHELGA Performing Organization Address [facility] de Phone Number LABORATORY [facility] [address] [place] [address] * PT INR (01/02/2024 6:42 AM EDT) [facility] Prothrombin Time 14.6 11.6 - 15.2 seconds 01/02/2024 7:37 AM EDT LABORATORY [facility] INR 1.1 0.8 - 1.2 01/02/2024 7:37 AM EDT LABORATORY C Blood Venous blood specimen / Unknown Venipuncture / Unknown 01/02/2024 6:42 AM EDT 01/02/2024 7:10 AM EDT Narrative LABORATORY [facility] - 01/02/2024 7:37 AM EDT Warfarin Therapy INR: 2.0-3.0 conventional anticoagulation INR: 2.5-3.5 high intensity anticoagulation Montrell Carmen PA-C LAB BLOOD ORDERABLES Performing Organization Address [facility] Co de Phone Number LABORATORY [facility] [address] [place] [address] * (ABNORMAL) CBC (01/02/2024 6:42 AM EDT) Pathologist [facility] WBC 6.38 4.00 - 10.80 K/uL 01/02/2024 7:20 AM EDT LABORATORY [facility] RBC 2.64 4.50 - 5.25 M/uL 01/02/2024 7:20 AM EDT LABORATORY GM HGB 7.2(L) 14.0 - 16.8 g/dL 01/02/2024 7:20 AM EDT LABORATORY [facility] HCT 22.9(L) 40.0 - 48.4 % 01/02/2024 7:20 AM EDT LABORATORY GM MCV 86.7 82.0 - 99.5 fL 01/02/2024 7:20 AM EDT LABORATORY GM MCH 27.3 27.0 - 34.0 pg 01/02/2024 7:20 AM EDT LABORATORY [facility] MCHC 31.4 32.0 - 36.0 g/dL 01/02/2024 7:20 AM EDT LABORATORY [facility] RDW 19.5 11.5 - 15.5 % 01/02/2024 7:20 AM EDT LABORATORY [facility] PLT 426(H) 140 - 400 K/uL 01/02/2024 7:20 AM EDT LABORATORY [facility] MPV 9.6 6.6 - 11.1 fL 01/02/2024 7:20 AM EDT LABORATORY [facility] nRBCs 0 <=0 /100 WBCs 01/02/2024 7:20 AM EDT LABORATORY [facility] Blood Venous blood specimen / Unknown Venipuncture / Unknown 01/02/2024 6:42 AM EDT 01/02/2024 7:13 AM EDT Montrell Carmen PA-C LAB BLOOD ORDERABLES LABORATORY [facility] [address] [facility] [place] [address] * HEPARIN, UNFRACTIONATED (01/01/2024 9:54 PM EDT) [facility] Heparin, Unfractionated <0.10 <0.10 IU/mL 01/01/2024 10:27 PM EDT LABORATORY [facility] Comment: Unfractionated therapeutic ranges for Anti Xa activity: For Cardiac/Neurologic treatment: 0.3 to 0.6 IU/mL. For treatment of DVT or Pulmonary Embolism: 0.3 to 0.7 IU/mL. Blood Venous blood specimen / Unknown Venipuncture / Unknown 01/01/2024 9:54 PM EDT 01/01/2024 9:58 PM EDT Winston Tarango MD LAB BLOOD ORDERABLES Performing Organization Address [facility] Co de Phone Number LABORATORY [place] [address] [place] [address] * (ABNORMAL) HCT (01/01/2024 7:51 PM EDT) Pathologist [facility] HCT 23.2(L) 40.0 - 48.4 % 01/01/2024 8:09 PM EDT LABORATORY [facility] Blood Venous blood specimen / Unknown Venipuncture / Unknown 01/01/2024 7:51 PM EDT 01/01/2024 7:54 PM EDT Winston Tarango MD LAB BLOOD ORDERABLES Performing Organization Address [facility] Co de Phone Number LABORATORY [place] [address] [place] [address] * (ABNORMAL) HGB (01/01/2024 7:51 PM EDT) [facility] HGB 7.2(L) 14.0 - 16.8 g/dL 01/01/2024 8:09 PM EDT LABORATORY [facility] Blood Venous blood specimen / Unknown Venipuncture / Unknown 01/01/2024 7:51 PM EDT 01/01/2024 7:54 PM EDT Winston Tarango MD LAB BLOOD ORDERABLES Performing Organization Address [facility] de Phone Number LABORATORY [place] [address] [place] [address] * (ABNORMAL) HEPARIN, UNFRACTIONATED (01/01/2024 4:11 PM EDT) Pathologist [facility] Heparin, Unfractionated 0.35(H) <0.10 IU/mL 01/01/2024 4:30 PM EDT LABORATORY [facility] Comment: Unfractionated therapeutic ranges for Anti Xa activity: For Cardiac/Neurologic treatment: 0.3 to 0.6 IU/mL. For treatment of DVT or Pulmonary Embolism: 0.3 to 0.7 IU/mL. Blood Venous blood specimen / Unknown Venipuncture / Unknown 01/01/2024 4:11 PM EDT 01/01/2024 4:14 PM EDT Winston Tarango MD LAB BLOOD ORDERABLES Performing Organization Address [facility] de Phone Number LABORATORY [address] [address] * (ABNORMAL) HEPARIN, UNFRACTIONATED (01/01/2024 8:41 AM EDT) Heparin, Unfractionated 0.14(H) <0.10 IU/mL 01/01/2024 9:21 AM EDT LABORATORY [facility] Comment: Unfractionated therapeutic ranges for Anti Xa activity: For Cardiac/Neurologic treatment: 0.3 to 0.6 IU/mL. For treatment of DVT or Pulmonary Embolism: 0.3 to 0.7 IU/mL. Blood Venous blood specimen / Unknown Venipuncture / Unknown 01/01/2024 8:41 AM EDT 01/01/2024 8:53 AM EDT Winston Tarango MD LAB BLOOD ORDERABLES Performing Organization Address [facility] de Phone Number LABORATORY [address] [address] * (ABNORMAL) CRP (INFLAMMATORY MARKER) (01/01/2024 6:28 AM EDT) CRP (Inflammatory Marker) 51(H) <=5 mg/L 01/01/2024 7:25 AM EDT LABORATORY [facility] Blood Venous blood specimen / Unknown Venipuncture / Unknown 01/01/2024 6:28 AM EDT 01/01/2024 6:52 AM EDT Edy Quintero MD LAB BLOOD ORDERAB LES LABORATORY [facility] [address] [facility] [place] [address] * (ABNORMAL) RENAL FUNCTION PANEL (01/01/2024 6:28 AM EDT) BUN 25(H) 6 - 20 mg/dL 01/01/2024 7:25 AM EDT LABORATORY [facility] Creatinine 3.1(H) 0.6 - 1.2 mg/dL 01/01/2024 7:25 AM EDT LABORATORY [facility] Estimated Glomerular Filtration Rate 22(L) >=60 mL/min 01/01/2024 7:25 AM EDT LABORATORY [facility] Comment:eGFR is calculated b ased on the CKD-EPI 2020 equation Sodium 139 135 - 146 mmol/L 01/01/2024 7:25 AM EDT LABORATORY [facility] Potassium 3.9 3.5 - 5.1 mmol/L 01/01/2024 7:25 AM EDT LABORATORY [facility] Chloride 105 98 - 107 mmol/L 01/01/2024 7:25 AM EDT LABORATORY G[facility] CO2 24 22 - 32 mmol/L 01/01/2024 7:25 AM EDT LABORATORY G[facility] Anion Gap 10 7 - 15 mmol/L 01/01/2024 7:25 AM EDT LABORATORY [facility] Glucose 116 70 - 120 mg/dL 01/01/2024 7:25 AM EDT LABORATORY G[facility] Calcium 8.4 8.4 - 10.2 mg/dL 01/01/2024 7:25 AM EDT LABORATORY G[facility] Albumin 2.7(L) 3.8 - 5.0 g/dL 01/01/2024 7:25 AM EDT LABORATORY G[facility] Phosphorus 4.0 2.5 - 4.8 mg/dL 01/01/2024 7:25 AM EDT LABORATORY G[facility] Blood Venous blood specimen / Unknown Venipuncture / Unknown 01/01/2024 6:28 AM EDT 01/01/2024 6:52 AM EDT Sia Peres PA-C LAB BLOOD ORDE STEPHIE LABORATORY [facility] [address] [place] [address] * PT INR (01/01/2024 6:27 AM EDT) Prothrombin Time 14.4 11.6 - 15.2 seconds 01/01/2024 7:19 AM EDT LABORATORY GM INR 1.1 0.8 - 1.2 01/01/2024 7:19 AM EDT LABORATORY [facility] Blood Venous blood specimen / Unknown Venipuncture / Unknown 01/01/2024 6:27 AM EDT 01/01/2024 6:52 AM EDT Narrative LABORATORY [facility] - 01/01/2024 7:19 AM EDT Warfarin Therapy INR: 2.0-3.0 conventional anticoagulation INR: 2.5-3.5 high intensity anticoagulation Montrell Carmen PA-C LAB BLOOD ORDERABLES Performing Organization Address City/[facility] Co de Phone Number LABORATORY [facility] [address] [place] [address] * (ABNORMAL) CBC (01/01/2024 6:27 AM EDT) Pathologist [facility] WBC 6.52 4.00 - 10.80 K/uL 01/01/2024 7:01 AM EDT LABORATORY GM RBC 2.66 4.50 - 5.25 M/uL 01/01/2024 7:01 AM EDT LABORATORY GM HGB 7.3(L) 14.0 - 16.8 g/dL 01/01/2024 7:01 AM EDT LABORATORY [facility] HCT 23.0(L) 40.0 - 48.4 % 01/01/2024 7:01 AM EDT LABORATORY [facility] MCV 86.5 82.0 - 99.5 fL 01/01/2024 7:01 AM EDT LABORATORY [facility] MCH 27.4 27.0 - 34.0 pg 01/01/2024 7:01 AM EDT LABORATORY GM MCHC 31.7 32.0 - 36.0 g/dL 01/01/2024 7:01 AM EDT LABORATORY GM RDW 19.2 11.5 - 15.5 % 01/01/2024 7:01 AM EDT LABORATORY [facility] PLT 509(H) 140 - 400 K/uL 01/01/2024 7:01 AM EDT LABORATORY [facility] MPV 9.2 6.6 - 11.1 fL 01/01/2024 7:01 AM EDT LABORATORY [facility] nRBCs 0 <=0 /100 WBCs 01/01/2024 7:01 AM EDT LABORATORY [facility] Blood Venous blood specimen / Unknown Venipuncture / Unknown 01/01/2024 6:27 AM EDT 01/01/2024 6:52 AM EDT Montrell Carmen PA-C LAB BLOOD ORDERABLES Performing Organization Address [facility] Co de Phone Number LABORATORY [place] [address] [place] [address] * HEPARIN, UNFRACTIONATED (01/01/2024 2:14 AM EDT) [facility] Signature Heparin, Unfractionated <0.10 <0.10 IU/mL 01/01/2024 2:42 AM EDT LABORATORY [facility] Comment: Unfractionated therapeutic ranges for Anti Xa activity: For Cardiac/Neurologic treatment: 0.3 to 0.6 IU/mL. For treatment of DVT or Pulmonary Embolism: 0.3 to 0.7 IU/mL. Blood Venous blood specimen / Unknown Venipuncture / Unknown 01/01/2024 2:14 AM EDT 01/01/2024 2:16 AM EDT Ed Melissa MD LAB BLOOD ORDERABLES Performing Organization Address [facility]/ZIP Co de Phone Number LABORATORY [place] [address] [place] [address] * (ABNORMAL) HEPARIN, UNFRACTIONATED (01/01/2024 12:52 AM EDT) Heparin, Unfractionated >1.10(HH) <0.10 IU/mL 01/01/2024 1:32 AM EDT LABORATORY [facility] Comment:Results rechecked. Blood Venous blood specimen / Unknown Venipuncture / Unknown 01/01/2024 12:52 AM EDT 01/01/2024 1:03 AM EDT Winston Tarango MD LAB BLOOD ORDERABLES Performing Organization Address [facility] de Phone Number LABORATORY [facility] [address] [place] [address] * HEPARIN, UNFRACTIONATED (12/31/2023 5:53 PM EDT) [facility] Heparin, Unfractionated <0.10 <0.10 IU/mL 12/31/2023 6:47 PM EDT LABORATORY [facility] Comment: Unfractionated therapeutic ranges for Anti Xa activity: For Cardiac/Neurologic treatment: 0.3 to 0.6 IU/mL. For treatment of DVT or Pulmonary Embolism: 0.3 to 0.7 IU/mL. Blood Venous blood specimen / Unknown Venipuncture / Unknown 12/31/2023 5:53 PM EDT 12/31/2023 5:57 PM EDT Winston Tarango MD LAB BLOOD ORDERABLES Performing Organization Address [facility] de Phone Number LABORATORY [facility] [address] [place] [address] * Tunnel CVC Placement (12/31/2023 2:26 PM EDT) Narrative Tyler Torres MD - 12/31/2023 2:26 PM EDT Nya Cortes RN 12/31/2023 3:31 PM Tunnel CVC Placement General Information and Staff: Performed by: Oscar Conklin MD Procedure Date/Time: 12/31/2023 3:31 PM Patient Location: Indication: alf vascular access Patient identity confirmed: Verbally with patient and arm band Verbal confirmation: MRN, name and date of Written consent obtained: Yes Consent given by: Patient Understanding of procedure being performed: Yes Understanding of procedure matches verbalized consent: Yes Procedure consent matches procedure scheduled: Yes Allergies reviewed: Yes Site marked: yes Verify correct position: Yes Radiology Studies available/reviewed: yes Relevant Lab Results available/reviewed: yes Required items available: yes Other healthcare professional(s) verbalize(s) agreement with time out: Yes Name(s): see timeout Time out: Immediately prior to the procedure a time out was completed Procedure Detail: Sterility Preparation: mask worn, sterile gloves worn, cap worn, sterile sheet used, sterile gown worn and full body drape Provider Hand Hygiene: alcohol-based hand rub Placement conditions: Elective Patient Position: Supine Prep: Chlorhexidine Local Anesthetic Used: Yes Catheter Type: Tunneled CVC Tunneled CVC Laterality: Right Tunneled CVC Site: Chest Tunneled CVC Vessel: Internal Jugular Other: Bard Powerline Polyurethane Catheter with SureCuff Catheter size: 5 fr Catheter Total Length (cm): 25 Catheter Internal Length (cm): 25 Catheter External Length (cm): 0 Lot Number: [id number] EXP: 2028-04-20 Number of Lumens: Single lumen Number of Needle Passes: 1 Placement: target vein identified, needle advanced into vein and blood aspirated and guidewire advanced into vein Radiologic Support with Sterile Technique: ultrasound guidance used and live fluoroscopy Sterile gel and probe cover used for ultrasound?: Yes Intravenous Verification: live fluoroscopy Outcomes/Complications: patient tolerated procedure well with no complications Estimated blood loss: minimal. Post Insertion: Post Insertion Details: all ports aspirated, all ports flushed easily, guidewire was removed, examined and appears intact, line was sutured in place and dressing was applied Site cleansed: Other (comment) (normal saline) Line secured with: Monafilament Suture Dressing applied: Gel Chlorhexidine Gluconate Tip Confirmation: Radiologic Tip Location: Line Ok to use and Other Location Other: RA Tlyer Torres MD ANESTHESIA * CK (12/31/2023 6:38 AM EDT) CK 67 39 - 308 U/L 12/31/2023 8:31 AM EDT LABORATORY [facility] Blood Venous blood specimen / Unknown Venipuncture / Unknown 12/31/2023 6:38 AM EDT 12/31/2023 6:46 AM EDT Winston Tarango MD LAB BLOOD ORDERABLES LABORATORY [facility] [address] [place] [address] * (ABNORMAL) CRP (INFLAMMATORY MARKER) (12/31/2023 6:38 AM EDT) CRP (Inflammatory Marker) 59(H) <=5 mg/L 12/31/2023 7:29 AM EDT LABORATORY GM Blood Venous blood specimen / Unknown Venipuncture / Unknown 12/31/2023 6:38 AM EDT 12/31/2023 6:46 AM EDT Edy Quintero MD LAB BLOOD ORDERAB LES LABORATORY [facility] [address] [place] [address] * (ABNORMAL) RENAL FUNCTION PANEL (12/31/2023 6:38 AM EDT) Pathologist [facility] BUN 26(H) 6 - 20 mg/dL 12/31/2023 7:29 AM EDT LABORATORY [facility] Creatinine 3.2(H) 0.6 - 1.2 mg/dL 12/31/2023 7:29 AM EDT LABORATORY [facility] Estimated Glomerular Filtration Rate 22(L) >=60 mL/min 12/31/2023 7:29 AM EDT LABORATORY [facility] Comment:eGFR is calculated b ased on the CKD-EPI 2020 equation Sodium 140 135 - 146 mmol/L 12/31/2023 7:29 AM EDT LABORATORY [facility] Potassium 4.0 3.5 - 5.1 mmol/L 12/31/2023 7:29 AM EDT LABORATORY [facility] Chloride 106 98 - 107 mmol/L 12/31/2023 7:29 AM EDT LABORATORY [facility] CO2 23 22 - 32 mmol/L 12/31/2023 7:29 AM EDT LABORATORY G[facility] Anion Gap 11 7 - 15 mmol/L 12/31/2023 7:29 AM EDT LABORATORY G[facility] Glucose 120 70 - 120 mg/dL 12/31/2023 7:29 AM EDT LABORATORY G[facility] Calcium 8.2(L) 8.4 - 10.2 mg/dL 12/31/2023 7:29 AM EDT LABORATORY [facility] Albumin 2.8(L) 3.8 - 5.0 g/dL 12/31/2023 7:29 AM EDT LABORATORY [facility] Phosphorus 4.1 2.5 - 4.8 mg/dL 12/31/2023 7:29 AM EDT LABORATORY G[facility] Blood Venous blood specimen / Unknown Venipuncture / Unknown 12/31/2023 6:38 AM EDT 12/31/2023 6:46 AM EDT Sia Peres PA-C LAB BLOOD ORDE RABHELGA Performing Organization Address City/[facility]/ZIP Co de Phone Number LABORATORY [facility] [address] [place] [address] * PT INR (12/31/2023 6:38 AM EDT) Prothrombin Time 14.8 11.6 - 15.2 seconds 12/31/2023 7:13 AM EDT LABORATORY [facility] INR 1.2 0.8 - 1.2 12/31/2023 7:13 AM EDT LABORATORY C Blood Venous blood specimen / Unknown Venipuncture / Unknown 12/31/2023 6:38 AM EDT 12/31/2023 6:46 AM EDT Narrative LABORATORY [facility] - 12/31/2023 7:13 AM EDT Warfarin Therapy INR: 2.0-3.0 conventional anticoagulation INR: 2.5-3.5 high intensity anticoagulation Montrell Carmen PA-C LAB BLOOD ORDERABLES Performing Organization Address [facility] Co de Phone Number LABORATORY [facility] [address] [place] [address] * (ABNORMAL) CBC (12/31/2023 6:38 AM EDT) WBC 7.83 4.00 - 10.80 K/uL 12/31/2023 7:01 AM EDT LABORATORY [facility] RBC 2.65 4.50 - 5.25 M/uL 12/31/2023 7:01 AM EDT LABORATORY [facility] HGB 7.2(L) 14.0 - 16.8 g/dL 12/31/2023 7:01 AM EDT LABORATORY [facility] HCT 23.0(L) 40.0 - 48.4 % 12/31/2023 7:01 AM EDT LABORATORY [facility] MCV 86.8 82.0 - 99.5 fL 12/31/2023 7:01 AM EDT LABORATORY [facility] MCH 27.2 27.0 - 34.0 pg 12/31/2023 7:01 AM EDT LABORATORY [facility] MCHC 31.3 32.0 - 36.0 g/dL 12/31/2023 7:01 AM EDT LABORATORY [facility] RDW 19.0 11.5 - 15.5 % 12/31/2023 7:01 AM EDT LABORATORY [facility] PLT 575(H) 140 - 400 K/uL 12/31/2023 7:01 AM EDT LABORATORY [facility] MPV 8.9 6.6 - 11.1 fL 12/31/2023 7:01 AM EDT LABORATORY [facility] nRBCs 0 <=0 /100 WBCs 12/31/2023 7:01 AM EDT LABORATORY [facility] Blood Venous blood specimen / Unknown Venipuncture / Unknown 12/31/2023 6:38 AM EDT 12/31/2023 6:46 AM EDT Montrell Carmen PA-C LAB BLOOD ORDERABLES LABORATORY [place] [address] [place] [address] * (ABNORMAL) HEPARIN, UNFRACTIONATED (12/31/2023 6:38 AM EDT) [facility] Heparin, Unfractionated 0.50(H) <0.10 IU/mL 12/31/2023 7:14 AM EDT LABORATORY [facility] Comment: Unfractionated therapeutic ranges for Anti Xa activity: For Cardiac/Neurologic treatment: 0.3 to 0.6 IU/mL. For treatment of DVT or Pulmonary Embolism: 0.3 to 0.7 IU/mL. Blood Venous blood specimen / Unknown Venipuncture / Unknown 12/31/2023 6:38 AM EDT 12/31/2023 6:46 AM EDT Winston Tarango MD LAB BLOOD ORDERABLES LABORATORY [address] [address] * (ABNORMAL) HEPARIN, UNFRACTIONATED (12/30/2023 8:14 PM EDT) Heparin, Unfractionated 0.55(H) <0.10 IU/mL 12/30/2023 8:32 PM EDT LABORATORY [facility] Comment: Unfractionated therapeutic ranges for Anti Xa activity: For Cardiac/Neurologic treatment: 0.3 to 0.6 IU/mL. For treatment of DVT or Pulmonary Embolism: 0.3 to 0.7 IU/mL. Blood Venous blood specimen / Unknown Venipuncture / Unknown 12/30/2023 8:14 PM EDT 12/30/2023 8:20 PM EDT Ed Melissa MD LAB BLOOD ORDERABLES Performing Organization Address [facility] Co de Phone Number LABORATORY [address] [address] * (ABNORMAL) HEPARIN, UNFRACTIONATED (12/30/2023 3:35 PM EDT) [facility] Heparin, Unfractionated 0.35(H) <0.10 IU/mL 12/30/2023 5:21 PM EDT LABORATORY [facility] Comment: Unfractionated therapeutic ranges for Anti Xa activity: For Cardiac/Neurologic treatment: 0.3 to 0.6 IU/mL. For treatment of DVT or Pulmonary Embolism: 0.3 to 0.7 IU/mL. Blood Venous blood specimen / Unknown Venipuncture / Unknown 12/30/2023 3:35 PM EDT 12/30/2023 4:03 PM EDT Winston Tarango MD LAB BLOOD ORDERABLES LABORATORY [address] [address] * TRANSFUSE PACKED RED BLOOD CELLS (12/30/2023 1:57 PM EDT) Winston Tarango MD BLD BANK TRANFUSE OR DERABLES * TRANSFUSE PACKED RED BLOOD CELLS (12/30/2023 1:57 PM EDT) Winston Tarango MD BLD BANK TRANFUSE OR DERABLES * (ABNORMAL) HCT (12/30/2023 1:41 PM EDT) [facility] HCT 23.3(L) 40.0 - 48.4 % 12/30/2023 2:00 PM EDT LABORATORY [facility] Blood Venous blood specimen / Unknown Venipuncture / Unknown 12/30/2023 1:41 PM EDT 12/30/2023 1:51 PM EDT Winston Tarango MD LAB BLOOD ORDERABLES Performing Organization Address City/[facility]/ZIP Co de Phone Number LABORATORY [address] [address] * (ABNORMAL) HGB (12/30/2023 1:41 PM EDT) [facility] HGB 7.3(L) 14.0 - 16.8 g/dL 12/30/2023 2:00 PM EDT LABORATORY C Blood Venous blood specimen / Unknown Venipuncture / Unknown 12/30/2023 1:41 PM EDT 12/30/2023 1:51 PM EDT Winston Tarango MD LAB BLOOD ORDERABLES Performing Organization Address City/[facility]/ZIP Co de Phone Number LABORATORY [address] [address] * PREPARE PACKED RED BLOOD CELLS (12/30/2023 9:20 AM EDT) [facility] Unit Product Code [id number] LABORATORY [facility] BLOOD BANK Unit Number [id number] LABO RATORY [facility] BLOOD BANK Unit ABO A LABORATORY [facility] BLOOD BANK Unit Rh POS LABORATORY GM BLOOD BANK Unit Crossmatch Compatible LABORATORY GM BLOOD BANK Unit Status PT LABORATO RY [facility] BLOOD BANK Unit Blood Type APOS LABORATORY [facility] BLOOD BANK Unit Expiration [id number] LABORATORY [facility] BLOOD BANK Unit Barcode 6200 LABORAT ORY [facility] BLOOD BANK 12/30/2023 9:20 AM EDT Winston Tarango MD UbiterraD BANK PRODUCT ORD ERABLES Performing Organization Address [facility] Co de Phone Number LABORATORY [facility] BLOOD BANK [address] [place] [address] * PREPARE PACKED RED BLOOD CELLS (12/30/2023 7:35 AM EDT) Pathologist [facility] Unit Product Code [id number] LABORATORY [facility] BLOOD BANK Unit Number [id number] LABO RATORY [facility] BLOOD BANK Unit ABO A LABORATORY [facility] BLOOD BANK Unit Rh POS LABORATORY GM BLOOD BANK Unit Crossmatch Compatible LABORATORY GM BLOOD BANK Unit Status RE LABORATO RY [facility] BLOOD [facility] Unit Blood Type APOS LABORATORY [facility] BLOOD BANK Unit Expiration [id number] LABORATORY [facility] BLOOD BANK Unit Barcode 6200 LABORAT ORY [facility] BLOOD BANK 12/30/2023 7:35 AM EDT Winston Tarango MD D BANK PRODUCT ORD ERABLES Performing Organization Address [facility] Co de Phone Number LABORATORY [facility] BLOOD BANK [address] [place] [address] * VITAMIN B12 (12/30/2023 6:17 AM EDT) [facility] Vitamin B12 674 232 - 1,245 pg/mL 12/31/2023 12:31 AM EDT LABORATORY [facility] Blood Venous blood specimen / Unknown Venipuncture / Unknown 12/30/2023 6:17 AM EDT 12/30/2023 7:06 AM EDT Winston Tarango MD LAB BLOOD ORDERABLES Performing Organization Address City/[facility] Co de Phone Number LABORATORY [facility] [address] [place] [address] * FOLIC ACID (12/30/2023 6:17 AM EDT) Pathologist [facility] Folic Acid 7.1 >4.5 ng/mL 12/31/2023 7:29 PM EDT LABORATORY [facility] Blood Venous blood specimen / Unknown Venipuncture / Unknown 12/30/2023 6:17 AM EDT 12/30/2023 7:06 AM EDT Winston Tarango MD LAB BLOOD ORDERABLES Performing Organization Address [facility] Co de Phone Number LABORATORY [facility] [address] [place] [address] * (ABNORMAL) FERRITIN (12/30/2023 6:17 AM EDT) Pathologist [facility] Ferritin 959(H) 30 - 400 ng/mL 12/31/2023 12:31 AM EDT LAB[facility]ATORY [facility] Blood Venous blood specimen / Unknown Venipuncture / Unknown 12/30/2023 6:17 AM EDT 12/30/2023 7:06 AM EDT Winston Tarango MD LAB BLOOD ORDERABLES Performing Organization Address [facility] de Phone Number [facility] [address] [place] [address] * (ABNORMAL) IRON SCREEN, INCLUDING TIBC (12/30/2023 6:17 AM EDT) Pathologist [facility] Iron 18(L) 45 - 176 ug/dL 12/30/2023 10:54 PM EDT LAB[facility]ORY [facility] Iron Binding Capacity 169(L) 250 - 425 ug/dL 12/30/2023 10:54 PM EDT LAB[facility]ATORY [facility] Transferrin Saturation Percent 11(L) 15 - 55 % 12/30/2023 10:54 PM EDT LABORATORY C Blood Venous blood specimen / Unknown Venipuncture / Unknown 12/30/2023 6:17 AM EDT 12/30/2023 7:06 AM EDT Winston Tarango MD LAB BLOOD ORDERABLES Performing Organization Address [facility] Co de Phone Number LABORATORY [place] [address] [place] [address] * (ABNORMAL) CRP (INFLAMMATORY MARKER) (12/30/2023 6:17 AM EDT) Pathologist [facility] CRP (Inflammatory Marker) 74(H) <=5 mg/L 12/30/2023 7:38 AM EDT LAB[facility]ATORY [facility] Blood Venous blood specimen / Unknown Venipuncture / Unknown 12/30/2023 6:17 AM EDT 12/30/2023 7:06 AM EDT Edy Quintero MD LAB BLOOD ORDERAB LES LABORATORY [facility] [address] [place] [address] * (ABNORMAL) RENAL FUNCTION PANEL (12/30/2023 6:17 AM EDT) BUN 24(H) 6 - 20 mg/dL 12/30/2023 7:38 AM EDT LABORATORY [facility] Creatinine 3.2(H) 0.6 - 1.2 mg/dL 12/30/2023 7:38 AM EDT LAB[facility]ATORY [facility] Estimated Glomerular Filtration Rate 22(L) >=60 mL/min 12/30/2023 7:38 AM EDT LAB[facility]ATORY [facility] Comment:eGFR is calculated b ased on the CKD-EPI 2020 equation Sodium 141 135 - 146 mmol/L 12/30/2023 7:38 AM EDT LAB[facility]ATORY [facility] Potassium 3.5 3.5 - 5.1 mmol/L 12/30/2023 7:38 AM EDT LABORATORY [facility] Chloride 106 98 - 107 mmol/L 12/30/2023 7:38 AM EDT LAB[facility]ATORY [facility] CO2 25 22 - 32 mmol/L 12/30/2023 7:38 AM EDT LABORATORY [facility] Anion Gap 10 7 - 15 mmol/L 12/30/2023 7:38 AM EDT LABORATORY [facility] Glucose 116 70 - 120 mg/dL 12/30/2023 7:38 AM EDT LABORATORY [facility] Calcium 8.2(L) 8.4 - 10.2 mg/dL 12/30/2023 7:38 AM EDT LABORATORY [facility] Albumin 2.6(L) 3.8 - 5.0 g/dL 12/30/2023 7:38 AM EDT LABORATORY [facility] Phosphorus 4.1 2.5 - 4.8 mg/dL 12/30/2023 7:38 AM EDT LABORATORY [facility] Blood Venous blood specimen / Unknown Venipuncture / Unknown 12/30/2023 6:17 AM EDT 12/30/2023 7:06 AM EDT Sia Peres PA-C LAB BLOOD ORDE RABLES Performing Organization Address [facility]/ZIP Co de Phone Number LAB[facility]ATORY [facility] [address] [place] [address] * PT INR (12/30/2023 6:17 AM EDT) Prothrombin Time 15.1 11.6 - 15.2 seconds 12/30/2023 7:22 AM EDT LABORATORY [facility] INR 1.2 0.8 - 1.2 12/30/2023 7:22 AM EDT LABORATORY [facility] Blood Venous blood specimen / Unknown Venipuncture / Unknown 12/30/2023 6:17 AM EDT 12/30/2023 7:05 AM EDT Narrative LABORATORY [facility] - 12/30/2023 7:22 AM EDT Warfarin Therapy INR: 2.0-3.0 conventional anticoagulation INR: 2.5-3.5 high intensity anticoagulation Montrell Carmen PA-C LAB BLOOD ORDERABLES Performing Organization Address [facility] Co de Phone Number LABORATORY [facility] [address] [place] [address] * (ABNORMAL) CBC (12/30/2023 6:17 AM EDT) WBC 7.62 4.00 - 10.80 K/uL 12/30/2023 7:25 AM EDT LABORATORY [facility] RBC 2.45 4.50 - 5.25 M/uL 12/30/2023 7:25 AM EDT LABORATORY [facility] HGB 6.4(L) 14.0 - 16.8 g/dL 12/30/2023 7:25 AM EDT LABORATORY [facility] HCT 21.4(L) 40.0 - 48.4 % 12/30/2023 7:25 AM EDT LABORATORY [facility] MCV 87.3 82.0 - 99.5 fL 12/30/2023 7:25 AM EDT LABORATORY [facility] MCH 26.1 27.0 - 34.0 pg 12/30/2023 7:25 AM EDT LABORATORY [facility] MCHC 29.9 32.0 - 36.0 g/dL 12/30/2023 7:25 AM EDT LABORATORY [facility] RDW 18.9 11.5 - 15.5 % 12/30/2023 7:25 AM EDT LABORATORY [facility] PLT 618(H) 140 - 400 K/uL 12/30/2023 7:25 AM EDT LABORATORY [facility] MPV 9.2 6.6 - 11.1 fL 12/30/2023 7:25 AM EDT LABORATORY [facility] nRBCs 0 <=0 /100 WBCs 12/30/2023 7:25 AM EDT LABORATORY [facility] Blood Venous blood specimen / Unknown Venipuncture / Unknown 12/30/2023 6:17 AM EDT 12/30/2023 7:05 AM EDT Montrell Carmen PA-C LAB BLOOD ORDERABLES Performing Organization Address City/[facility] Co de Phone Number LABORATORY [facility] [address] [place] [address] * (ABNORMAL) HEPARIN, UNFRACTIONATED (12/30/2023 6:17 AM EDT) [facility] Heparin, Unfractionated 0.27(H) <0.10 IU/mL 12/30/2023 7:19 AM EDT LABORATORY [facility] Comment: Unfractionated therapeutic ranges for Anti Xa activity: For Cardiac/Neurologic treatment: 0.3 to 0.6 IU/mL. For treatment of DVT or Pulmonary Embolism: 0.3 to 0.7 IU/mL. Blood Venous blood specimen / Unknown Venipuncture / Unknown 12/30/2023 6:17 AM EDT 12/30/2023 7:05 AM EDT Ed Melissa MD LAB BLOOD ORDERABLES Performing Organization Address [facility]/ZIP Co de Phone Number LABORATORY [facility] [address] [place] [address] * URINE PROTEIN ELECTROPHORESIS REFLEX PROFILE, RANDOM URINE (12/29/2023 11:23 AM EDT) Normal/Abnormal Normal Normal 2:45 PM EDT LABORATORY [facility] Protein, Random Urine 7 mg/dL 12/30/2023 2:45 PM EDT LABORATORY [facility] Electrophoresis Intepretation No abnormal peaks detected. Urine protein concentration is very low. Suggest repeat testing on a 24 hour urine specimen,if clinically indicated. 12/30/2023 2:45 PM EDT LABORATORY C Albumin, Urine 2.3 mg/dL 12/30/2023 2:45 PM EDT LABORATORY C Globulins, Urine 4.7 mg/dL 12/30/19 2:45 PM EDT LABORATORY [facility] Urine Non-blood Collection / Unknown 12/29/2023 11:23 AM EDT 12/29/2023 11:30 AM EDT Pamela GALLAGHER-C LAB URINE ORDERABLES Performing Organization Address City/[facility] Co de Phone Number LABORATORY [facility] [address] [place] [address] * TYPE AND SCREEN (12/29/2023 10:33 AM EDT) ABO A 12/29/2023 11:22 AM EDT LABORATORY [facility] BLOOD BANK Rh Positive 12/29/2023 11:22 AM EDT LABORATORY [facility] BLOOD BANK Red Blood Cell Antibody Screen Negative 12/29/2023 11:22 AM EDT LABORATORY [facility] BLOOD BANK Specimen Expiration Date 01/01/2024 23:59 12/29/2023 11:22 AM EDT LABORATORY [facility] BLOOD BANK Blood Venous blood specimen / Unknown Venipuncture / Unknown 12/29/2023 10:33 AM EDT 12/29/2023 10:36 AM EDT Pamela GALLAGHER-C LAB BLOOD BANK TEST ORDERABLES Performing Organization Address City/[facility]/ZIP Co de Phone Number LABORATORY [facility] BLOOD BANK [address] [place] [address] * SERUM IMMUNOFIXATION (12/29/2023 10:33 AM EDT) [facility] Normal/Abnormal Normal Normal 2:45 PM EDT LABORATORY [facility] Immunofixation Interpretation No monoclonal gammopathy detected. 12/30/2023 2:45 PM EDT LABORATORY [facility] Blood Venous blood specimen / Unknown Venipuncture / Unknown 12/29/2023 10:33 AM EDT 12/29/2023 10:36 AM EDT Pamela Wood PA-C LAB BLOOD ORDERABLES Performing Organization Address City/[facility]/ZIP Co de Phone Number LABORATORY [facility] [address] [place] [address] * (ABNORMAL) CRP (INFLAMMATORY MARKER) (12/29/2023 7:20 AM EDT) [facility] CRP (Inflammatory Marker) 71(H) <=5 mg/L 12/29/2023 8:28 AM EDT LABORATORY [facility] Blood Venous blood specimen / Unknown Venipuncture / Unknown 12/29/2023 7:20 AM EDT 12/29/2023 7:57 AM EDT Edy Quintero MD LAB BLOOD ORDERAB LES Performing Organization Address City/[facility]/ZIP Co de Phone Number LABORATORY [facility] [address] [place] [address] * (ABNORMAL) RENAL FUNCTION PANEL (12/29/2023 7:20 AM EDT) [facility] BUN 25(H) 6 - 20 mg/dL 12/29/2023 8:28 AM EDT LABORATORY [facility] Creatinine 3.2(H) 0.6 - 1.2 mg/dL 12/29/2023 8:28 AM EDT LABORATORY [facility] Estimated Glomerular Filtration Rate 22(L) >=60 mL/min 12/29/2023 8:28 AM EDT LABORATORY [facility] Comment:eGFR is calculated b ased on the CKD-EPI 2020 equation Sodium 138 135 - 146 mmol/L 12/29/2023 8:28 AM EDT LABORATORY [facility] Potassium 3.4(L) 3.5 - 5.1 mmol/L 12/29/2023 8:28 AM EDT LABORATORY [facility] Chloride 100 98 - 107 mmol/L 12/29/2023 8:28 AM EDT LABORATORY [facility] CO2 25 22 - 32 mmol/L 12/29/2023 8:28 AM EDT LABORATORY [facility] Anion Gap 13 7 - 15 mmol/L 12/29/2023 8:28 AM EDT LABORATORY [facility] Glucose 120 70 - 120 mg/dL 12/29/2023 8:28 AM EDT LABORATORY [facility] Calcium 8.3(L) 8.4 - 10.2 mg/dL 12/29/2023 8:28 AM EDT LABORATORY [facility] Albumin 2.6(L) 3.8 - 5.0 g/dL 12/29/2023 8:28 AM EDT LABORATORY [facility] Phosphorus 4.2 2.5 - 4.8 mg/dL 12/29/2023 8:28 AM EDT LABORATORY C Blood Venous blood specimen / Unknown Venipuncture / Unknown 12/29/2023 7:20 AM EDT 12/29/2023 7:57 AM EDT Sia Peres PA-C LAB BLOOD ORDE STEPHIE LABORATORY [facility] [address] [place] [address] * PT INR (12/29/2023 7:20 AM EDT) [facility] Prothrombin Time 15.0 11.6 - 15.2 seconds 12/29/2023 8:07 AM EDT LABORATORY [facility] INR 1.2 0.8 - 1.2 12/29/2023 8:07 AM EDT LABORATORY [facility] Blood Venous blood specimen / Unknown Venipuncture / Unknown 12/29/2023 7:20 AM EDT 12/29/2023 7:55 AM EDT Narrative LABORATORY [facility] - 12/29/2023 8:07 AM EDT Warfarin Therapy INR: 2.0-3.0 conventional anticoagulation INR: 2.5-3.5 high intensity anticoagulation Montrell Carmen PA-C LAB BLOOD ORDERABLES LAB[facility]ATORY [facility] [address] [place] [address] * (ABNORMAL) CBC (12/29/2023 7:20 AM EDT) WBC 9.30 4.00 - 10.80 K/uL 12/29/2023 8:06 AM EDT LABORATORY [facility] RBC 2.62 4.50 - 5.25 M/uL 12/29/2023 8:06 AM EDT LABORATORY [facility] HGB 7.0(L) 14.0 - 16.8 g/dL 12/29/2023 8:06 AM EDT LABORATORY [facility] HCT 22.3(L) 40.0 - 48.4 % 12/29/2023 8:06 AM EDT LABORATORY [facility] MCV 85.1 82.0 - 99.5 fL 12/29/2023 8:06 AM EDT LABORATORY [facility] MCH 26.7 27.0 - 34.0 pg 12/29/2023 8:06 AM EDT LABORATORY [facility] MCHC 31.4 32.0 - 36.0 g/dL 12/29/2023 8:06 AM EDT LABORATORY [facility] RDW 18.6 11.5 - 15.5 % 12/29/2023 8:06 AM EDT LABORATORY [facility] PLT 668(H) 140 - 400 K/uL 12/29/2023 8:06 AM EDT LABORATORY GM MPV 8.9 6.6 - 11.1 fL 12/29/2023 8:06 AM EDT LABORATORY GM nRBCs 0 <=0 /100 WBCs 12/29/2023 8:06 AM EDT LABORATORY GM Blood Venous blood specimen / Unknown Venipuncture / Unknown 12/29/2023 7:20 AM EDT 12/29/2023 7:57 AM EDT Montrell Carmen PA-C LAB BLOOD ORDERABLES LAB[facility]ATORY [facility] [address] [place] [address] * CK (12/29/2023 7:20 AM EDT) [facility] CK 72 39 - 308 U/L 12/29/2023 8:28 AM EDT LABORATORY [facility] Blood Venous blood specimen / Unknown Venipuncture / Unknown 12/29/2023 7:20 AM EDT 12/29/2023 7:57 AM EDT Pamela Wood PA-C LAB BLOOD ORDERABLES Performing Organization Address [facility]/ZIP Co de Phone Number LABORATORY [facility] [address] [place] [address] * (ABNORMAL) HEPARIN, UNFRACTIONATED (12/29/2023 7:20 AM EDT) [facility] Heparin, Unfractionated 0.32(H) <0.10 IU/mL 12/29/2023 8:08 AM EDT LABORATORY [facility] Comment: Unfractionated therapeutic ranges for Anti Xa activity: For Cardiac/Neurologic treatment: 0.3 to 0.6 IU/mL. For treatment of DVT or Pulmonary Embolism: 0.3 to 0.7 IU/mL. Blood Venous blood specimen / Unknown Venipuncture / Unknown 12/29/2023 7:20 AM EDT 12/29/2023 7:55 AM EDT Ed Melissa MD LAB BLOOD ORDERABLES Performing Organization Address [facility] de Phone Number LABORATORY [facility] [address] [place] [address] * (ABNORMAL) CRP (INFLAMMATORY MARKER) (12/28/2023 7:08 AM EDT) [facility] CRP (Inflammatory Marker) 71(H) <=5 mg/L 12/28/2023 11:22 AM EDT LABORATORY [facility] Blood Venous blood specimen / Unknown Venipuncture / Unknown 12/28/2023 7:08 AM EDT 12/28/2023 7:19 AM EDT Edy Quintero MD LAB BLOOD ORDERAB LES Performing Organization Address City/[facility]/ZIP Co de Phone Number LABORATORY [facility] [address] [place] [address] * (ABNORMAL) RENAL FUNCTION PANEL (12/28/2023 7:08 AM EDT) BUN 24(H) 6 - 20 mg/dL 12/28/2023 7:53 AM EDT LABORATORY [facility] Creatinine 3.1(H) 0.6 - 1.2 mg/dL 12/28/2023 7:53 AM EDT LABORATORY [facility] Estimated Glomerular Filtration Rate 22(L) >=60 mL/min 12/28/2023 7:53 AM EDT LABORATORY [facility] Comment:eGFR is calculated b ased on the CKD-EPI 2020 equation Sodium 135 135 - 146 mmol/L 12/28/2023 7:53 AM EDT LABORATORY [facility] Potassium 3.6 3.5 - 5.1 mmol/L 12/28/2023 7:53 AM EDT LABORATORY [facility] Chloride 99 98 - 107 mmol/L 12/28/2023 7:53 AM EDT LABORATORY [facility] CO2 26 22 - 32 mmol/L 12/28/2023 7:53 AM EDT LABORATORY [facility] Anion Gap 10 7 - 15 mmol/L 12/28/2023 7:53 AM EDT LABORATORY [facility] Glucose 135(H) 70 - 120 mg/dL 12/28/2023 7:53 AM EDT LABORATORY [facility] Calcium 8.1(L) 8.4 - 10.2 mg/dL 12/28/2023 7:53 AM EDT LABORATORY [facility] Albumin 2.7(L) 3.8 - 5.0 g/dL 12/28/2023 7:53 AM EDT LABORATORY [facility] Phosphorus 3.7 2.5 - 4.8 mg/dL 12/28/2023 7:53 AM EDT LABORATORY [facility] Blood Venous blood specimen / Unknown Venipuncture / Unknown 12/28/2023 7:08 AM EDT 12/28/2023 7:19 AM EDT Sia Peres PA-C LAB BLOOD KAVEH CARD LABORATORY [facility] [address] [place] [address] * PT INR (12/28/2023 7:08 AM EDT) Prothrombin Time 13.9 11.6 - 15.2 seconds 12/28/2023 7:26 AM EDT LABORATORY [facility] INR 1.1 0.8 - 1.2 12/28/2023 7:26 AM EDT LABORATORY [facility] Blood Venous blood specimen / Unknown Venipuncture / Unknown 12/28/2023 7:08 AM EDT 12/28/2023 7:12 AM EDT Narrative LABORATORY [facility] - 12/28/2023 7:26 AM EDT Warfarin Therapy INR: 2.0-3.0 conventional anticoagulation INR: 2.5-3.5 high intensity anticoagulation Montrell Carmen PA-C LAB BLOOD ORDERABLES LABORATORY [facility] [address] [place] [address] * (ABNORMAL) CBC (12/28/2023 7:08 AM EDT) WBC 12.01(H) 4.00 - 10.80 K/uL 12/28/2023 7:26 AM EDT LABORATORY [facility] RBC 2.94 4.50 - 5.25 M/uL 12/28/2023 7:26 AM EDT LABORATORY [facility] HGB 7.8(L) 14.0 - 16.8 g/dL 12/28/2023 7:26 AM EDT LABORATORY [facility] HCT 24.5(L) 40.0 - 48.4 % 12/28/2023 7:26 AM EDT LABORATORY [facility] MCV 83.3 82.0 - 99.5 fL 12/28/2023 7:26 AM EDT LABORATORY [facility] MCH 26.5 27.0 - 34.0 pg 12/28/2023 7:26 AM EDT LABORATORY [facility] MCHC 31.8 32.0 - 36.0 g/dL 12/28/2023 7:26 AM EDT LABORATORY [facility] RDW 18.3 11.5 - 15.5 % 12/28/2023 7:26 AM EDT LABORATORY [facility] PLT 762(H) 140 - 400 K/uL 12/28/2023 7:26 AM EDT LABORATORY [facility] MPV 8.6 6.6 - 11.1 fL 12/28/2023 7:26 AM EDT LABORATORY [facility] nRBCs 0 <=0 /100 WBCs 12/28/2023 7:26 AM EDT LABORATORY [facility] Blood Venous blood specimen / Unknown Venipuncture / Unknown 12/28/2023 7:08 AM EDT 12/28/2023 7:18 AM EDT Montrell Carmen PA-C LAB BLOOD ORDERABLES Performing Organization Address [facility] de Phone Number LABORATORY [place] [address] [place] [address] * (ABNORMAL) HEPARIN, UNFRACTIONATED (12/28/2023 7:08 AM EDT) Heparin, Unfractionated 0.45(H) <0.10 IU/mL 12/28/2023 7:26 AM EDT LABORATORY [facility] Comment: Unfractionated therapeutic ranges for Anti Xa activity: For Cardiac/Neurologic treatment: 0.3 to 0.6 IU/mL. For treatment of DVT or Pulmonary Embolism: 0.3 to 0.7 IU/mL. Blood Venous blood specimen / Unknown Venipuncture / Unknown 12/28/2023 7:08 AM EDT 12/28/2023 7:12 AM EDT Ed Melissa MD LAB BLOOD ORDERABLES Performing Organization Address City/[facility]/ZIP Co de Phone Number LABORATORY [place] [address] [place] [address] * VANCOMYCIN RANDOM (12/28/2023 7:08 AM EDT) Vancomycin Random 21.3 10.0 - 40.0 ug/mL 12/28/2023 7:53 AM EDT LABORATORY [facility] Blood Venous blood specimen / Unknown Venipuncture / Unknown 12/28/2023 7:08 AM EDT 12/28/2023 7:19 AM EDT Ed Melissa MD LAB BLOOD ORDERABLES Performing Organization Address [facility] de Phone Number LABORATORY [facility] [address] [place] [address] * (ABNORMAL) HEPARIN, UNFRACTIONATED (12/27/2023 3:37 PM EDT) Heparin, Unfractionated 0.31(H) <0.10 IU/mL 12/27/2023 4:06 PM EDT LABORATORY [facility] Comment: Unfractionated therapeutic ranges for Anti Xa activity: For Cardiac/Neurologic treatment: 0.3 to 0.6 IU/mL. For treatment of DVT or Pulmonary Embolism: 0.3 to 0.7 IU/mL. Blood Venous blood specimen / Unknown Venipuncture / Unknown 12/27/2023 3:37 PM EDT 12/27/2023 3:50 PM EDT Ed Melissa MD LAB BLOOD ORDERABLES Performing Organization Address [facility] de Phone Number LABORATORY [facility] [address] [place] [address] * (ABNORMAL) HEPARIN, UNFRACTIONATED (12/27/2023 8:55 AM EDT) Heparin, Unfractionated 0.30(H) <0.10 IU/mL 12/27/2023 9:15 AM EDT LABORATORY [facility] Comment: Unfractionated therapeutic ranges for Anti Xa activity: For Cardiac/Neurologic treatment: 0.3 to 0.6 IU/mL. For treatment of DVT or Pulmonary Embolism: 0.3 to 0.7 IU/mL. Blood Venous blood specimen / Unknown Venipuncture / Unknown 12/27/2023 8:55 AM EDT 12/27/2023 9:02 AM EDT Ed Melissa MD LAB BLOOD ORDERABLES Performing Organization Address [facility] Co de Phone Number LABORATORY [facility] [address] [place] [address] * VANCOMYCIN RANDOM (12/27/2023 6:32 AM EDT) Vancomycin Random 29.7 10.0 - 40.0 ug/mL 12/27/2023 9:35 AM EDT LABORATORY GM Blood Venous blood specimen / Unknown Venipuncture / Unknown 12/27/2023 6:32 AM EDT 12/27/2023 6:50 AM EDT Ed Melissa MD LAB BLOOD ORDERABLES Performing Organization Address City/State/[facility] Co de Phone Number LABORATORY [facility] [address] [place] [address] * (ABNORMAL) RENAL FUNCTION PANEL (12/27/2023 6:32 AM EDT) BUN 24(H) 6 - 20 mg/dL 12/27/2023 7:16 AM EDT LABORATORY [facility] Creatinine 3.1(H) 0.6 - 1.2 mg/dL 12/27/2023 7:16 AM EDT LABORATORY [facility] Estimated Glomerular Filtration Rate 23(L) >=60 mL/min 12/27/2023 7:16 AM EDT LABORATORY [facility] Comment:eGFR is calculated b ased on the CKD-EPI 2020 equation Sodium 139 135 - 146 mmol/L 12/27/2023 7:16 AM EDT LABORATORY [facility] Potassium 3.8 3.5 - 5.1 mmol/L 12/27/2023 7:16 AM EDT LABORATORY [facility] Chloride 101 98 - 107 mmol/L 12/27/2023 7:16 AM EDT LABORATORY [facility] CO2 26 22 - 32 mmol/L 12/27/2023 7:16 AM EDT LABORATORY [facility] Anion Gap 12 7 - 15 mmol/L 12/27/2023 7:16 AM EDT LABORATORY [facility] Glucose 126(H) 70 - 120 mg/dL 12/27/2023 7:16 AM EDT LABORATORY [facility] Calcium 8.2(L) 8.4 - 10.2 mg/dL 12/27/2023 7:16 AM EDT LABORATORY [facility] Albumin 2.6(L) 3.8 - 5.0 g/dL 12/27/2023 7:16 AM EDT LABORATORY [facility] Phosphorus 3.2 2.5 - 4.8 mg/dL 12/27/2023 7:16 AM EDT LABORATORY [facility] Blood Venous blood specimen / Unknown Venipuncture / Unknown 12/27/2023 6:32 AM EDT 12/27/2023 6:50 AM EDT Sia Peres PA-C LAB BLOOD ORDE RABLES Performing Organization Address City/[facility]/ZIP Co de Phone Number LABORATORY [facility] [address] [place] [address] * PT INR (12/27/2023 6:32 AM EDT) Prothrombin Time 14.8 11.6 - 15.2 seconds 12/27/2023 7:30 AM EDT LABORATORY [facility] INR 1.2 0.8 - 1.2 12/27/2023 7:30 AM EDT LABORATORY C Blood Venous blood specimen / Unknown Venipuncture / Unknown 12/27/2023 6:32 AM EDT 12/27/2023 6:50 AM EDT Narrative LABORATORY [facility] - 12/27/2023 7:30 AM EDT Warfarin Therapy INR: 2.0-3.0 conventional anticoagulation INR: 2.5-3.5 high intensity anticoagulation Montrell Carmen PA-C LAB BLOOD ORDERABLES Performing Organization Address [facility] Co de Phone Number LABORATORY [facility] [address] [place] [address] * (ABNORMAL) CBC (12/27/2023 6:32 AM EDT) WBC 11.93(H) 4.00 - 10.80 K/uL 12/27/2023 6:58 AM EDT LABORATORY [facility] RBC 2.68 4.50 - 5.25 M/uL 12/27/2023 6:58 AM EDT LABORATORY [facility] HGB 7.1(L) 14.0 - 16.8 g/dL 12/27/2023 6:58 AM EDT LABORATORY [facility] HCT 22.2(L) 40.0 - 48.4 % 12/27/2023 6:58 AM EDT LABORATORY [facility] MCV 82.8 82.0 - 99.5 fL 12/27/2023 6:58 AM EDT LABORATORY [facility] MCH 26.5 27.0 - 34.0 pg 12/27/2023 6:58 AM EDT LABORATORY [facility] MCHC 32.0 32.0 - 36.0 g/dL 12/27/2023 6:58 AM EDT LABORATORY [facility] RDW 17.5 11.5 - 15.5 % 12/27/2023 6:58 AM EDT LABORATORY [facility] PLT 688(H) 140 - 400 K/uL 12/27/2023 6:58 AM EDT LABORATORY [facility] MPV 8.8 6.6 - 11.1 fL 12/27/2023 6:58 AM EDT LABORATORY [facility] nRBCs 0 <=0 /100 WBCs 12/27/2023 6:58 AM EDT LABORATORY [facility] Blood Venous blood specimen / Unknown Venipuncture / Unknown 12/27/2023 6:32 AM EDT 12/27/2023 6:50 AM EDT Montrell Carmen PA-C LAB BLOOD ORDERABLES Performing Organization Address City/[facility] Co de Phone Number LABORATORY [place] [address], [place] [id number] * (ABNORMAL) HEPARIN, UNFRACTIONATED (12/27/2023 2:21 AM EDT) [facility] Heparin, Unfractionated 0.26(H) <0.10 IU/mL 12/27/2023 2:38 AM EDT LABORATORY [facility] Comment: Unfractionated therapeutic ranges for Anti Xa activity: For Cardiac/Neurologic treatment: 0.3 to 0.6 IU/mL. For treatment of DVT or Pulmonary Embolism: 0.3 to 0.7 IU/mL. Blood Venous blood specimen / Unknown Venipuncture / Unknown 12/27/2023 2:21 AM EDT 12/27/2023 2:24 AM EDT Ed Melissa MD LAB BLOOD ORDERABLES LABORATORY [place] [address] [place] [address] * HEPARIN, UNFRACTIONATED (12/26/2023 8:16 PM EDT) [facility] Heparin, Unfractionated <0.10 <0.10 IU/mL 12/26/2023 9:04 PM EDT [facility] [place] Comment: Unfractionated therapeutic ranges for Anti Xa activity: For Cardiac/Neurologic treatment: 0.3 to 0.6 IU/mL. For treatment of DVT or Pulmonary Embolism: 0.3 to 0.7 IU/mL. Blood Venous blood specimen / Unknown Venipuncture / Unknown 12/26/2023 8:16 PM EDT 12/26/2023 8:37 PM EDT Ed Melissa MD LAB BLOOD ORDERABLES [facility] [place] [address] [place] [address] * (ABNORMAL) CBC (12/26/2023 8:16 PM EDT) [facility] WBC 13.01(H) 4.00 - 10.80 K/uL 12/26/2023 8:45 PM EDT [facility] RBC 2.79 4.50 - 5.25 M/uL 12/26/2023 8:45 PM EDT [facility] HGB 7.4(L) 14.0 - 16.8 g/dL 12/26/2023 8:45 PM EDT [facility] HCT 22.8(L) 40.0 - 48.4 % 12/26/2023 8:45 PM EDT LABORATORY [facility] MCV 81.7 82.0 - 99.5 fL 12/26/2023 8:45 PM EDT LABORATORY [facility] MCH 26.5 27.0 - 34.0 pg 12/26/2023 8:45 PM EDT LABORATORY [facility] MCHC 32.5 32.0 - 36.0 g/dL 12/26/2023 8:45 PM EDT LABORATORY [facility] RDW 17.2 11.5 - 15.5 % 12/26/2023 8:45 PM EDT [facility] [place] PLT 722(H) 140 - 400 K/uL 12/26/2023 8:45 PM EDT [facility] MPV 8.8 6.6 - 11.1 fL 12/26/2023 8:45 PM EDT [facility] nRBCs 0 <=0 /100 WBCs 12/26/2023 8:45 PM EDT [facility] Blood Venous blood specimen / Unknown Venipuncture / Unknown 12/26/2023 8:16 PM EDT 12/26/2023 8:36 PM EDT Ed Melissa MD LAB BLOOD ORDERABLES [facility] [address] [place] [address] * EKG (12/26/2023 7:50 PM EDT) 12/26/2023 7:50 PM EDT Narrative Procedure Note Matthew Chawla MD - 12/26/2023 7:50 PM EDT REASON FOR STUDY: PER ORDER FOR QT INT CONCLUSIONS: Normal sinus rhythm Incomplete right bundle branch block No previous ECGs available Ventricular Rate: 92 Atrial Rate: 92 CT Interval: 152 QRS Duration: 116 QT/QTc: 364/450 ms P-R-T [place]: 56 : 48 : 24 degrees Linh JENSEN EKG Performing Organization Address City/[facility] Co de Phone Number [facility] * HEPARIN, UNFRACTIONATED (12/26/2023 2:17 PM EDT) [facility] Heparin, Unfractionated <0.10 <0.10 IU/mL 12/26/2023 2:42 PM EDT [facility] [place] Comment: Unfractionated therapeutic ranges for Anti Xa activity: For Cardiac/Neurologic treatment: 0.3 to 0.6 IU/mL. For treatment of DVT or Pulmonary Embolism: 0.3 to 0.7 IU/mL. Blood Venous blood specimen / Unknown Venipuncture / Unknown 12/26/2023 2:17 PM EDT 12/26/2023 2:21 PM EDT Ed Melissa MD LAB BLOOD ORDERABLES LABORATORY [address] [address] * US RENAL (12/26/2023 9:36 AM EDT) Anatomical Region Laterality Modality Abdomen, Body Ultrasound 12/26/2023 10:0 0 AM EDT Impressions 12/26/2023 9:57 AM EDT IMPRESSION No hydronephrosis. Narrative 12/26/2023 9:57 AM EDT EXAM US RENAL-12/26/2023 9:36 am HISTORY to rule out obstruction COMPARISON Outside CT scan dated 12/17/2023 TECHNIQUE Real time sonographic imaging of the kidneys was performed. FINDINGS Right kidney: Measures 12.4 cmx6.6 cmx6.0 cm. Normal echogenicity. A probable small cyst is noted. No hydronephrosis or calculi. Left kidney: Measures 12.4 cmx6.5 cmx5.5 cm. Normal echogenicity. No hydronephrosis, calculi, or mass. Urinary bladder: Collapsed around a Duffy catheter. Aorta: Not seen. Procedure Note Delonte Marquez MD - 12/26/2023 EXAM US RENAL-12/26/2023 9:36 am HISTORY to rule out obstruction COMPARISON Outside CT scan dated 12/17/2023 TECHNIQUE Real time sonographic imaging of the kidneys was performed. FINDINGS Right kidney: Measures 12.4 cmx6.6 cmx6.0 cm. Normal echogenicity. Aprobable small cyst is noted. No hydronephrosis or calculi. Left kidney: Measures 12.4 cmx6.5 cmx5.5 cm. Normal echogenicity. Nohydronephrosis, calculi, or mass. Urinary bladder: Collapsed around a Duffy catheter. Aorta: Not seen. IMPRESSION IMPRESSION No hydronephrosis. Ed Melissa MD RAD ULTRASOUND * (ABNORMAL) URINALYSIS, REFLEX TO CULTURE (12/26/2023 8:44 AM EDT) Color, Urine Colorless Colorless, Light Yellow, Yellow, Dark Yellow 12/26/2023 9:52 AM EDT LAB[facility] Clarity, Urine Clear Clear 12/26/2023 9:52 AM EDT LAB[facility] Glucose, Urine Negative Negative mg/dL 12/26/2023 9:52 AM EDT LAB[facility]ORY [facility] Bilirubin, Urine Negative Negative 12/26/2023 9:52 AM EDT LAB[facility]ORY [facility] Ketone, Urine Negative Negative mg/dL 12/26/2023 9:52 AM EDT LAB[facility]ORY [facility] Specific Hustler, Urine 1.008 1.003 - 1.030 12/26/2023 9:52 AM EDT LAB[facility] Blood, Urine Trace(A) Negative 12/26/2023 9:52 AM EDT LAB[facility] pH, Urine 5.5 5.0 - 7.5 Units 12/26/2023 9:52 AM EDT LAB[facility] Protein, Urine Negative Negative mg/dL 12/26/2023 9:52 AM EDT LAB[facility] Urobilinogen, Urine Normal Normal mg/dL 12/26/2023 9:52 AM EDT LAB[facility]ORY [facility] Nitrite, Urine Negative Negative 12/26/2023 9:52 AM EDT LAB[facility]ORY [facility] Esterase, Urine Negative Negative 12/26/2023 9:52 AM EDT LAB[facility] RBC, Urine 0-2 0 - 2 /HPF 12/26/2023 9:52 AM EDT LAB[facility]ORY [facility] WBC, Urine 0-2 0 - 2 /HPF 12/26/2023 9:52 AM EDT LAB[facility]ORY [facility] Bacteria, Urine 0-25 0 - 25 /HPF 12/26/2023 9:52 AM EDT LAB[facility] Culture, Urine 12/26/2023 9:52 AM EDT [facility] Comment:Culture not indicate d by urinalysis results Urine Urine specimen obtained by clean catch procedure / Unknown Non-blood Collection / Unknown 12/26/2023 8:44 AM EDT 12/26/2023 8:58 AM EDT Ed Melissa MD LAB URINE ORDERABLES LAB[facility]ATORY [facility] [address] [place] [address] * URINALYSIS, REFLEX TO CULTURE (CUP ONLY) (12/26/2023 8:44 AM EDT) Urinalysis, Reflex to Culture Specimen Specimen collected and received 12/26/2023 10:01 AM EDT LAB[facility] Urine Urine specimen obtained by clean catch procedure / Unknown Non-blood Collection / Unknown 12/26/2023 8:44 AM EDT 12/26/2023 8:58 AM EDT Ed Melissa MD LAB URINE ORDERABLES Performing Organization Address City/[facility]/ZIP Co de Phone Number LABORATORY [address] [address] * UREA NITROGEN, RANDOM URINE (12/26/2023 8:44 AM EDT) Urea Nitrogen, Random Urine 192 mg/dL 12/26/2023 9:37 AM EDT LAB[facility]ORY [facility] Urine Non-blood Collection / Unknown 12/26/2023 8:44 AM EDT 12/26/2023 8:58 AM EDT Ed Melissa MD LAB URINE ORDERABLES Performing Organization Address City/[facility] Co de Phone Number LABORATORY [address] [address] * PROTEIN/ CREATININE RATIO, URINE (12/26/2023 8:44 AM EDT) Protein/ Creatinine Ratio, Urine 140 <150 mg/g 12/26/2023 9:43 AM EDT LABORATORY [facility] Protein, Random Urine 7 mg/dL 12/26/2023 9:43 AM EDT LAB[facility]ATORY [facility] Creatinine, Random Urine 50 mg/dL 12/26/2023 9:43 AM EDT LAB[facility]ATORY [facility] Urine Non-blood Collection / Unknown 12/26/2023 8:44 AM EDT 12/26/2023 8:58 AM EDT Narrative LABORATORY [facility] - 12/26/2023 9:43 AM EDT Normal: <150 mg/g creatinine High: 150-500 mg/g creatinine Very High: >500 mg/g creatinine Nephrotic: >3000 mg/g creatinine Ed Melissa MD LAB URINE ORDERABLES Performing Organization Address [facility] de Phone Number LABORATORY [facility] [address] [place] [address] * SODIUM, RANDOM URINE (12/26/2023 8:44 AM EDT) Sodium, Random Urine 28 mmol/L 12/26/2023 9:45 AM EDT LAB[facility]ORY [facility] Urine Non-blood Collection / Unknown 12/26/2023 8:44 AM EDT 12/26/2023 8:58 AM EDT Ed Melissa MD LAB URINE ORDERABLES Performing Organization Address [facility] Phone Number LABORATORY [place] [address] [place] [address] * HEPARIN, UNFRACTIONATED (12/26/2023 7:38 AM EDT) Heparin, Unfractionated <0.10 <0.10 IU/mL 12/26/2023 8:16 AM EDT LAB[facility]ATORY [facility] Comment: Unfractionated therapeutic ranges for Anti Xa activity: For Cardiac/Neurologic treatment: 0.3 to 0.6 IU/mL. For treatment of DVT or Pulmonary Embolism: 0.3 to 0.7 IU/mL. Blood Venous blood specimen / Unknown Venipuncture / Unknown 12/26/2023 7:38 AM EDT 12/26/2023 7:41 AM EDT Ed Melissa MD LAB BLOOD ORDERABLES Performing Organization Address [facility] Phone Number LABORATORY [place] [address] [place] [address] * (ABNORMAL) CBC (12/26/2023 7:38 AM EDT) WBC 13.60(H) 4.00 - 10.80 K/uL 12/26/2023 7:52 AM EDT LABORATORY [facility] RBC 2.64 4.50 - 5.25 M/uL 12/26/2023 7:52 AM EDT LABORATORY [facility] HGB 7.0(L) 14.0 - 16.8 g/dL 12/26/2023 7:52 AM EDT LABORATORY [facility] HCT 21.9(L) 40.0 - 48.4 % 12/26/2023 7:52 AM EDT LAB[facility]ATORY [facility] MCV 83.0 82.0 - 99.5 fL 12/26/2023 7:52 AM EDT LABORATORY [facility] MCH 26.5 27.0 - 34.0 pg 12/26/2023 7:52 AM EDT LAB[facility]ATORY [facility] MCHC 32.0 32.0 - 36.0 g/dL 12/26/2023 7:52 AM EDT LAB[facility]ATORY [facility] RDW 17.0 11.5 - 15.5 % 12/26/2023 7:52 AM EDT LABORATORY [facility] PLT 620(H) 140 - 400 K/uL 12/26/2023 7:52 AM EDT LAB[facility]ATORY [facility] MPV 8.7 6.6 - 11.1 fL 12/26/2023 7:52 AM EDT LAB[facility]ATORY [facility] nRBCs 0 <=0 /100 WBCs 12/26/2023 7:52 AM EDT LAB[facility]ATORY [facility] Blood Venous blood specimen / Unknown Venipuncture / Unknown 12/26/2023 7:38 AM EDT 12/26/2023 7:41 AM EDT Ed Melissa MD LAB BLOOD ORDERABLES Performing Organization Address City/State/[facility] Co de Phone Number LABORATORY [facility] [address] [place] [address] * APTT (12/26/2023 7:38 AM EDT) aPTT 36 21 - 38 seconds 12/26/2023 8:16 AM EDT LABORATORY [facility] Blood Venous blood specimen / Unknown Venipuncture / Unknown 12/26/2023 7:38 AM EDT 12/26/2023 7:41 AM EDT Narrative LABORATORY [facility] - 12/26/2023 8:16 AM EDT Anticoagulation may affect testing. Refer to [employer] for a list of effects. Ed Melissa MD LAB BLOOD ORDERABLES LABORATORY [place] [address] [place] [address] * PT INR (12/26/2023 7:38 AM EDT) Prothrombin Time 14.1 11.6 - 15.2 seconds 12/26/2023 8:13 AM EDT LAB[facility]ATORY [facility] INR 1.1 0.8 - 1.2 12/26/2023 8:13 AM EDT LAB[facility]ORY [facility] Blood Venous blood specimen / Unknown Venipuncture / Unknown 12/26/2023 7:38 AM EDT 12/26/2023 7:41 AM EDT Narrative LABORATORY [facility] - 12/26/2023 8:13 AM EDT Warfarin Therapy INR: 2.0-3.0 conventional anticoagulation INR: 2.5-3.5 high intensity anticoagulation Ed Melissa MD LAB BLOOD ORDERABLES Performing Organization Address [facility] Co de Phone Number LABORATORY [address] [address] * COMPLEMENT C4 (12/26/2023 6:43 AM EDT) Complement C4 26 10 - 40 mg/dL 12/26/2023 1:57 PM EDT LAB[facility]ORY [facility] Blood Venous blood specimen / Unknown Venipuncture / Unknown 12/26/2023 6:43 AM EDT 12/26/2023 6:46 AM EDT Ed Melissa MD LAB BLOOD ORDERABLES Performing Organization Address City/[facility]/ZIP Co de Phone Number LABORATORY [address] [address] * (ABNORMAL) RENAL FUNCTION PANEL (12/26/2023 6:43 AM EDT) BUN 21(H) 6 - 20 mg/dL 12/26/2023 7:30 AM EDT LABORATORY [facility] Creatinine 2.9(H) 0.6 - 1.2 mg/dL 12/26/2023 7:30 AM EDT LABORATORY [facility] Estimated Glomerular Filtration Rate 25(L) >=60 mL/min 12/26/2023 7:30 AM EDT LABORATORY [facility] Comment:eGFR is calculated b ased on the CKD-EPI 2020 equation Sodium 133(L) 135 - 146 mmol/L 12/26/2023 7:30 AM EDT LABORATORY [facility] Potassium 4.1 3.5 - 5.1 mmol/L 12/26/2023 7:30 AM EDT LABORATORY [facility] Chloride 94(L) 98 - 107 mmol/L 12/26/2023 7:30 AM EDT LABORATORY [facility] CO2 25 22 - 32 mmol/L 12/26/2023 7:30 AM EDT LAB[facility]ATORY [facility] Anion Gap 14 7 - 15 mmol/L 12/26/2023 7:30 AM EDT LAB[facility]ATORY [facility] Glucose 158(H) 70 - 120 mg/dL 12/26/2023 7:30 AM EDT LAB[facility]ATORY [facility] Calcium 7.9(L) 8.4 - 10.2 mg/dL 12/26/2023 7:30 AM EDT LABORATORY [facility] Albumin 2.7(L) 3.8 - 5.0 g/dL 12/26/2023 7:30 AM EDT LABORATORY [facility] Phosphorus 5.4(H) 2.5 - 4.8 mg/dL 12/26/2023 7:30 AM EDT LAB[facility]ATORY [facility] Blood Venous blood specimen / Unknown Venipuncture / Unknown 12/26/2023 6:43 AM EDT 12/26/2023 6:46 AM EDT Sia Peres PA-C LAB BLOOD KAVEH [facility] Organization Address City/State/ZIP Co de Phone Number LABORATORY [facility] [address] [place] [address] * PT INR (12/26/2023 6:43 AM EDT) Prothrombin Time 14.1 11.6 - 15.2 seconds 12/26/2023 7:15 AM EDT LABORATORY [facility] INR 1.1 0.8 - 1.2 12/26/2023 7:15 AM EDT LABORATORY [facility] Blood Venous blood specimen / Unknown Venipuncture / Unknown 12/26/2023 6:43 AM EDT 12/26/2023 6:46 AM EDT Narrative LABORATORY [facility] - 12/26/2023 7:15 AM EDT Warfarin Therapy INR: 2.0-3.0 conventional anticoagulation INR: 2.5-3.5 high intensity anticoagulation Montrell Carmen PA-C LAB BLOOD ORDERABLES LABORATORY [facility] [address] [place] [address] * (ABNORMAL) CBC (12/26/2023 6:43 AM EDT) WBC 14.25(H) 4.00 - 10.80 K/uL 12/26/2023 7:13 AM EDT LABORATORY [facility] RBC 2.84 4.50 - 5.25 M/uL 12/26/2023 7:13 AM EDT LABORATORY [facility] HGB 7.6(L) 14.0 - 16.8 g/dL 12/26/2023 7:13 AM EDT LABORATORY [facility] HCT 23.7(L) 40.0 - 48.4 % 12/26/2023 7:13 AM EDT LABORATORY [facility] MCV 83.5 82.0 - 99.5 fL 12/26/2023 7:13 AM EDT LAB[facility]ATORY [facility] MCH 26.8 27.0 - 34.0 pg 12/26/2023 7:13 AM EDT LABORATORY [facility] MCHC 32.1 32.0 - 36.0 g/dL 12/26/2023 7:13 AM EDT LABORATORY [facility] RDW 17.1 11.5 - 15.5 % 12/26/2023 7:13 AM EDT LABORATORY [facility] PLT 664(H) 140 - 400 K/uL 12/26/2023 7:13 AM EDT LABORATORY [facility] MPV 8.8 6.6 - 11.1 fL 12/26/2023 7:13 AM EDT LABORATORY [facility] nRBCs 0 <=0 /100 WBCs 12/26/2023 7:13 AM EDT LABORATORY [facility] Blood Venous blood specimen / Unknown Venipuncture / Unknown 12/26/2023 6:43 AM EDT 12/26/2023 6:46 AM EDT Montrell Carmen PA-C LAB BLOOD ORDERABLES LAB[facility]ATORY [facility] [address] [place] [address] * (ABNORMAL) BLOOD GAS, VENOUS (12/25/2023 11:25 PM EDT) Temperature 37.0 C 12/25/2023 11:33 PM EDT LABORATORY [facility] pH, Venous 7.415 7.320 - 7.430 units 12/25/2023 11:33 PM EDT LABORATORY [facility] pCO2, Venous 39.3(L) 40.0 - 60.0 mmHg 12/25/2023 11:33 PM EDT LABORATORY [facility] pO2, Venous 44.6 25.0 - 50.0 mmHg 12/25/2023 11:33 PM EDT LABORATORY [facility] Base Excess, Venous 0.7 -2.0 - 2.0 mmol/L 12/25/2023 11:33 PM EDT LABORATORY [facility] HGB 7.7(L) 14.0 - 16.8 g/dL 12/25/2023 11:33 PM EDT LABORATORY [facility] Oxyhemoglobin, Venous 77.2 40.0 - 85.0 % total Hgb 12/25/2023 11:33 PM EDT LABORATORY [facility] Carboxyhemoglobi n, Whole Blood 2.1(H) <=1.5 % total Hgb 12/25/2023 11:33 PM EDT LABORATORY [facility] Comment:Smokers: 0-9.0 % Methemoglobin, Whole Blood 0.5 <=1.5 % total Hgb 12/25/2023 11:33 PM EDT LABORATORY [facility] Reduced Hemoglobin, Venous 20.2 % total Hgb 12/25/2023 11:33 PM EDT LABORATORY [facility] O2 Content, Venous 8.4 7.0 - 18.0 %vol 12/25/2023 11:33 PM EDT LABORATORY [facility] Bicarbonate, Whole Blood 24.7 23.0 - 31.0 mmol/L 12/25/2023 11:33 PM EDT LABORATORY [facility] Blood Venous blood specimen / Unknown Venipuncture / Unknown 12/25/2023 11:25 PM EDT 12/25/2023 11:29 PM EDT Cher Bolivar DO LAB BLOOD ORDERA BLES Performing Organization Address [facility] Co de Phone Number LABORATORY [facility] [address] [place] [address] * XR INTRA-OP C-ARM CASE (12/25/2023 12:20 PM EDT) Narrative Scheduling, Silent - 12/25/2023 12:20 PM EDT This procedure will not be read by a Radiologist. Please see operative note. Sebas Sheridan MD RADIOLOGY (RAD GENER AL) * (ABNORMAL) GLUCOSE METER, POINT OF CARE (12/25/2023 12:07 PM EDT) Glucose Meter 130(H) 70 - 120 mg/dL 12/25/2023 2:14 PM EDT [facility] Blood Whole blood specimen / Unknown 12/25/2023 12:07 PM EDT 12/25/2023 2:14 PM EDT Ed Melissa MD LAB POINT OF CARE TE ST DOCKED DEVICE UNSOLICITED RESULTS Performing Organization Address City/[facility] Co de Phone Number [facility] [address] [place] [address] * SURGICAL PATHOLOGY (12/25/2023 11:52 AM EDT) Final Diagnosis A. Femur, Right, biopsy: Acute and chronic osteomyelitis Negative for neoplasm or malignancy 12/30/2023 3:29 PM EDT LABORATORY [facility] Clinical History From operative report: Pre-op Diagnosis: 1) Osteomyelitis of right distal femur 2) Possible tumor, right distal femur After the periosteum was elevated we then used a bur to make 5x1.5 cm rectangular cortical window along the lateral aspect of the distal femur. We then took a biopsy of the distal femur as well as cultures and these were sent for both pathology and cultures. 12/30/2023 3:29 PM EDT LABORATORY [facility] Gross Description A. Femur, Right. Received fresh with a container labeled with "Rogelio Barrera", "[id number]", "1965" and " right femur bone". The specimen consists of multiple fragments of glaser-red, bony tissue measuring 3.2 x 3.0 x 0.4 cm in aggregate. The specimen is entirely submitted in cassette A1, following EDTA decalcification. Gross By: LY 12/30/2023 3:29 PM EDT LABORATORY [facility] Sign Out Location Pathologist sign out performed at [facility] ([facility]), [address] [place] [id number]. 12/30/2023 3:29 PM EDT LABORATORY [facility] Photographic images and diagrams represent suggs findings in this case; they are not intended to replace a complete review of the final diagnostic report. The following statement applies to Flow Cytometry, Histology, In situ Hybridization Assays and Molecular Genetics. This test was developed and performed at [facility] and its performance characteristics determined by [facility] [employer]. It has not been cleared or approved by the U.S. Food and Drug Administration. The FDA has determined that such clearance or approval is not necessary. This test is used for clinical purposes. It should not be regarded as investigational or for research. Special stains, including histochemical stains, and studies using immunologic and RUBEN methodology (where applicable) are performed with appropriate positive and negative control reactions. 12/30/2023 3:29 PM EDT LABORATORY [facility] Tissue Structure of right femur / Unknown 12/25/2023 11:52 AM EDT 12/25/2023 2:12 PM EDT Sebas Sheridan MD LAB PATHOLOGY ORDERA ZULEMA LABORATORY [address] [address] * (ABNORMAL) CULTURE, TISSUE, AEROBIC AND ANAEROBIC (12/25/2023 11:20 AM EDT) Culture Growth Two colonies Staphylococcus aureus(AA) 12/30/2023 9:58 AM EDT LABORATORY [facility] Stain Description Occasional Polymorphonuclear leukocytes(AA) 12/30/2023 9:58 AM EDT LABORATORY [facility] Stain Description Few Gram positive cocci(AA) 12/30/2023 9:58 AM EDT LABORATORY [facility] Bone Structure of right femur / Unknown 12/25/2023 11:20 AM EDT 12/25/2023 12:17 PM EDT Narrative LABORATORY [facility] - 12/30/2023 9:58 AM EDT No anaerobic growth. Sebas Sheridan MD LAB MICRO - GENERAL ORDERABLES LABORATORY [facility] [address] [place] [address] * (ABNORMAL) CULTURE, TISSUE, AEROBIC AND ANAEROBIC (12/25/2023 11:19 AM EDT) Culture Growth Few Staphylococcus aureus MRSA, This patient may require isolation.(AA) MICROBROTH DILUTIONS 12/30/2023 10:11 AM EDT LABORATORY [facility] Stain Description Many Polymorphonuclear leukocytes(AA) 12/30/2023 10:11 AM EDT LABORATORY [facility] Stain Description Few Gram positive cocci(AA) 12/30/2023 10:11 AM EDT LABORATORY [facility] Bone Structure of right femur / Unknown 12/25/2023 11:19 AM EDT 12/25/2023 12:16 PM EDT Narrative LABORATORY [facility] - 12/30/2023 10:11 AM EDT No anaerobic growth. Organism Antibiotic Method Susceptibility Staphylococcus aureus MRSA, This patient may require isolation. Clindamycin MICROBROTH DILUTIONS >=8: Resistant Staphylococcus aureus MRSA, This patient may require isolation. Erythromycin MICROBROTH DILUTIONS >=8: Resistant Staphylococcus aureus MRSA, This patient may require isolation. Oxacillin MICROBROTH DILUTIONS >=4: Resistant Comment:Oxacillin/Me thicillin resistant Staphylococci are considered clinically resistant to all Beta-lactam (Penicillin and Cephalosporin) antibiotics. Quinolone antibiotics should also not be used for Staphylococci that are Oxacillin resistant. Staphylococcus aureus MRSA, This patient may require isolation. Tetracycline MICROBROTH DILUTIONS <=1: Susceptible Staphylococcus aureus MRSA, This patient may require isolation. Trimeth/Sulfamethoxazo le MICROBROTH DILUTIONS <=10: Susceptible Staphylococcus aureus MRSA, This patient may require isolation. Vancomycin MICROBROTH DILUTIONS <=0.5: Susceptible Sebas Sheridan MD LAB MICRO - GENERAL ORDERABLES Performing Organization Address City/[facility]/ZIP Co de Phone Number LABORATORY [facility] [address] [place] [address] * (ABNORMAL) GLUCOSE METER, POINT OF CARE (12/25/2023 9:01 AM EDT) Glucose Meter 130(H) 70 - 120 mg/dL 12/25/2023 9:03 AM EDT [facility] Blood Whole blood specimen / Unknown 12/25/2023 9:01 AM EDT 12/25/2023 9:03 AM EDT Ed Melissa MD LAB POINT OF CARE TE ST DOCKED DEVICE UNSOLICITED RESULTS Performing Organization Address [facility] Co de Phone Number [facility] [address] [place] [address] * PREPARE PACKED RED BLOOD CELLS (12/25/2023 7:55 AM EDT) Unit Product Code [id number] LABORATORY [facility] BLOOD BANK Unit Number [id number] LABO RATORY [facility] BLOOD BANK Unit ABO A LABORATORY [facility] BLOOD BANK Unit Rh POS LABORATORY [facility] BLOOD BANK Unit Crossmatch Compatible LABORATORY [facility] BLOOD BANK Unit Status RE LABORATO RY [facility] BLOOD [facility] Unit Blood Type APOS LABORATORY [facility] BLOOD BANK Unit Expiration [id number] LABORATORY [facility] BLOOD BANK Unit [facility]ode [facility]200 [facility] Product Code [id number] LABORATORY [facility] BLOOD BANK Unit Number [id number] LABO RATORY [facility] BLOOD [facility]ANK Unit ABO A LABORATORY [facility] BLOOD BANK Unit Rh POS LABORATORY [facility] BLOOD BANK Unit Crossmatch Compatible LABORATORY [facility] BLOOD BANK Unit Status RE LABORATO RY [facility]LO[facility] Unit Blood Type APOS LABORATORY [facility] BLOOD BANK Unit Expiration [id number] LABORATORY [facility] BLOOD BANK Unit Barcode Kade DELEON [facility] BLOOD [facility]ANK 12/25/2023 7:55 AM EDT Charis Allen ONE PIECE EXPANSION MAKER HAND BLD BANK PRODU CT ORDERABLES Performing Organization Address City/[facility]/ZIP Co de Phone Number LABORATORY [facility] BLOOD BANK [address] [place] [address] * VANCOMYCIN RANDOM (12/25/2023 6:55 AM EDT) Vancomycin Random 22.5 10.0 - 40.0 ug/mL 12/25/2023 4:14 PM EDT LABORATORY [facility] Blood Venous blood specimen / Unknown Venipuncture / Unknown 12/25/2023 6:55 AM EDT 12/25/2023 7:19 AM EDT Ed Melissa MD LAB BLOOD ORDERABLES Performing Organization Address City/[facility]/ZIP Co de Phone Number LABORATORY [facility] [address] [place] [address] * (ABNORMAL) RENAL FUNCTION PANEL (12/25/2023 6:55 AM EDT) BUN 16 6 - 20 mg/dL 12/25/2023 8:14 AM EDT LABORATORY C Creatinine 2.5(H) 0.6 - 1.2 mg/dL 12/25/2023 8:14 AM EDT LABORATORY GM Estimated Glomerular Filtration Rate 29(L) >=60 mL/min 12/25/2023 8:14 AM EDT LABORATORY [facility] Comment:eGFR is calculated b ased on the CKD-EPI 2020 equation Sodium 129(L) 135 - 146 mmol/L 12/25/2023 8:14 AM EDT LABORATORY [facility] Potassium 3.4(L) 3.5 - 5.1 mmol/L 12/25/2023 8:14 AM EDT LABORATORY [facility] Chloride 93(L) 98 - 107 mmol/L 12/25/2023 8:14 AM EDT LABORATORY [facility] CO2 24 22 - 32 mmol/L 12/25/2023 8:14 AM EDT LABORATORY [facility] Anion Gap 12 7 - 15 mmol/L 12/25/2023 8:14 AM EDT LABORATORY [facility] Glucose 134(H) 70 - 120 mg/dL 12/25/2023 8:14 AM EDT LABORATORY [facility] Calcium 8.1(L) 8.4 - 10.2 mg/dL 12/25/2023 8:14 AM EDT LABORATORY [facility] Albumin 2.5(L) 3.8 - 5.0 g/dL 12/25/2023 8:14 AM EDT LABORATORY [facility] Phosphorus 3.1 2.5 - 4.8 mg/dL 12/25/2023 8:14 AM EDT LABORATORY [facility] Blood Venous blood specimen / Unknown Venipuncture / Unknown 12/25/2023 6:55 AM EDT 12/25/2023 7:19 AM EDT Sia Peres PA-C LAB BLOOD ORDE RABLES Performing Organization Address City/[facility] Co de Phone Number LABORATORY [facility] [address] [place] [address] * PT INR (12/25/2023 6:55 AM EDT) [facility] Prothrombin Time 13.7 11.6 - 15.2 seconds 12/25/2023 7:39 AM EDT LABORATORY [facility] INR 1.1 0.8 - 1.2 12/25/2023 7:39 AM EDT LABORATORY [facility] Blood Venous blood specimen / Unknown Venipuncture / Unknown 12/25/2023 6:55 AM EDT 12/25/2023 7:19 AM EDT Narrative LABORATORY [facility] - 12/25/2023 7:39 AM EDT Warfarin Therapy INR: 2.0-3.0 conventional anticoagulation INR: 2.5-3.5 high intensity anticoagulation Montrell Carmen PA-C LAB BLOOD ORDERABLES Performing Organization Address [facility] Co de Phone Number LABORATORY [facility] [address] [place] [address] * (ABNORMAL) CBC (12/25/2023 6:55 AM EDT) WBC 12.41(H) 4.00 - 10.80 K/uL 12/25/2023 7:31 AM EDT [facility]ORY [facility] RBC 3.09 4.50 - 5.25 M/uL 12/25/2023 7:31 AM EDT LAB[facility]ATORY [facility] HGB 8.2(L) 14.0 - 16.8 g/dL 12/25/2023 7:31 AM EDT LAB[facility]ATORY [facility] HCT 25.3(L) 40.0 - 48.4 % 12/25/2023 7:31 AM EDT LAB[facility]AT[facility] MCV 81.9 82.0 - 99.5 fL 12/25/2023 7:31 AM EDT LAB[facility]ATORY [facility] MCH 26.5 27.0 - 34.0 pg 12/25/2023 7:31 AM EDT LABORATORY [facility] MCHC 32.4 32.0 - 36.0 g/dL 12/25/2023 7:31 AM EDT LABORATORY [facility] RDW 17.0 11.5 - 15.5 % 12/25/2023 7:31 AM EDT LABORATORY [facility] PLT 660(H) 140 - 400 K/uL 12/25/2023 7:31 AM EDT LABORATORY [facility] MPV 8.8 6.6 - 11.1 fL 12/25/2023 7:31 AM EDT LAB[facility]ATORY [facility] nRBCs 0 <=0 /100 WBCs 12/25/2023 7:31 AM EDT LABORATORY [facility] Blood Venous blood specimen / Unknown Venipuncture / Unknown 12/25/2023 6:55 AM EDT 12/25/2023 7:19 AM EDT Montrell Carmen PA-C LAB BLOOD ORDERABLES LAB[facility]ATORY [facility] [address] [facility] [place] [id number] * HEPARIN, UNFRACTIONATED (12/25/2023 6:55 AM EDT) Heparin, Unfractionated <0.10 <0.10 IU/mL 12/25/2023 7:43 AM EDT LAB[facility]ATORY [facility] Comment: Unfractionated therapeutic ranges for Anti Xa activity: For Cardiac/Neurologic treatment: 0.3 to 0.6 IU/mL. For treatment of DVT or Pulmonary Embolism: 0.3 to 0.7 IU/mL. Blood Venous blood specimen / Unknown Venipuncture / Unknown 12/25/2023 6:55 AM EDT 12/25/2023 7:19 AM EDT Ed Melissa MD LAB BLOOD ORDERABLES Performing Organization Address [facility] de Phone Number LABORATORY [address] [address] * (ABNORMAL) HEPARIN, UNFRACTIONATED (12/24/2023 10:10 PM EDT) Heparin, Unfractionated 0.32(H) <0.10 IU/mL 12/24/2023 10:29 PM EDT LAB[facility]AT[facility] Comment: Unfractionated therapeutic ranges for Anti Xa activity: For Cardiac/Neurologic treatment: 0.3 to 0.6 IU/mL. For treatment of DVT or Pulmonary Embolism: 0.3 to 0.7 IU/mL. Blood Venous blood specimen / Unknown Venipuncture / Unknown 12/24/2023 10:10 PM EDT 12/24/2023 10:14 PM EDT Ed Melissa MD LAB BLOOD ORDERABLES Performing Organization Address [facility] de Phone Number LABORATORY [address] [address] * TYPE AND SCREEN (12/24/2023 4:44 PM EDT) ABO A 12/24/2023 5:51 PM EDT LAB[facility]ORY [facility] BLOOD BANK Rh Positive 12/24/2023 5:51 PM EDT LAB[facility]ORY [facility] BLOOD [facility] Red Blood Cell Antibody Screen Negative 12/24/2023 5:51 PM EDT LAB[facility]ATORY [facility] BLOOD [facility] Specimen Expiration Date 12/27/2023 23:59 12/24/2023 5:51 PM EDT LAB[facility]ATORY [facility] BLOOD BANK Blood Venous blood specimen / Unknown Venipuncture / Unknown 12/24/2023 4:44 PM EDT 12/24/2023 4:47 PM EDT Pamela Wood PA-C LAB BLOOD BANK TEST ORDERABLES LAB[facility]AT[facility] BLOOD BANK [address] [place] [address] * (ABNORMAL) CBC (12/24/2023 4:44 PM EDT) WBC 13.07(H) 4.00 - 10.80 K/uL 12/24/2023 5:24 PM EDT LABORATORY [facility] RBC 3.27 4.50 - 5.25 M/uL 12/24/2023 5:24 PM EDT LABORATORY [facility] HGB 8.5(L) 14.0 - 16.8 g/dL 12/24/2023 5:24 PM EDT LABORATORY [facility] HCT 26.6(L) 40.0 - 48.4 % 12/24/2023 5:24 PM EDT LABORATORY [facility] MCV 81.3 82.0 - 99.5 fL 12/24/2023 5:24 PM EDT LABORATORY [facility] MCH 26.0 27.0 - 34.0 pg 12/24/2023 5:24 PM EDT LABORATORY [facility] MCHC 32.0 32.0 - 36.0 g/dL 12/24/2023 5:24 PM EDT LABORATORY [facility] RDW 16.5 11.5 - 15.5 % 12/24/2023 5:24 PM EDT LABORATORY [facility] PLT 685(H) 140 - 400 K/uL 12/24/2023 5:24 PM EDT LABORATORY [facility] MPV 8.8 6.6 - 11.1 fL 12/24/2023 5:24 PM EDT LABORATORY [facility] nRBCs 0 <=0 /100 WBCs 12/24/2023 5:24 PM EDT LABORATORY [facility] Blood Venous blood specimen / Unknown Venipuncture / Unknown 12/24/2023 4:44 PM EDT 12/24/2023 4:47 PM EDT Pamela Blakegene GALLAGHER-C LAB BLOOD ORDERABLES Performing Organization Address [facility] Co de Phone Number LAB[facility]ATORY [facility] [address] [place] [address] * (ABNORMAL) HEPARIN, UNFRACTIONATED (12/24/2023 4:44 PM EDT) Heparin, Unfractionated 0.36(H) <0.10 IU/mL 12/24/2023 5:15 PM EDT LAB[facility] Comment: Unfractionated therapeutic ranges for Anti Xa activity: For Cardiac/Neurologic treatment: 0.3 to 0.6 IU/mL. For treatment of DVT or Pulmonary Embolism: 0.3 to 0.7 IU/mL. Blood Venous blood specimen / Unknown Venipuncture / Unknown 12/24/2023 4:44 PM EDT 12/24/2023 4:47 PM EDT Ed Melissa MD LAB BLOOD ORDERABLES Performing Organization Address [facility] de Phone Number [facility]ATORY [facility] [address] [place] [address] * TRANSFUSE PACKED RED BLOOD CELLS (12/24/2023 2:16 PM EDT) Pamelawesly Blakegene GALLAGHER-C BLD BANK TRANFUSE OR DERABLES * TRANSFUSE PACKED RED BLOOD CELLS (12/24/2023 2:16 PM EDT) Pamela GALLAGHER-C BLD BANK TRANFUSE OR DERABLES * VANCOMYCIN RANDOM (12/24/2023 11:26 AM EDT) [facility] Vancomycin Random 16.1 10.0 - 40.0 ug/mL 12/24/2023 12:59 PM EDT LAB[facility]ATORY [facility] Blood Venous blood specimen / Unknown Venipuncture / Unknown 12/24/2023 11:26 AM EDT 12/24/2023 11:31 AM EDT Ed Melissa MD LAB BLOOD ORDERABLES Performing Organization Address [facility] Co de Phone Number LAB[facility]ATORY [facility] [address] [place] [address] * (ABNORMAL) HEPARIN, UNFRACTIONATED (12/24/2023 8:38 AM EDT) [facility] Heparin, Unfractionated 0.29(H) <0.10 IU/mL 12/24/2023 8:57 AM EDT LAB[facility]ORY [facility] Comment: Unfractionated therapeutic ranges for Anti Xa activity: For Cardiac/Neurologic treatment: 0.3 to 0.6 IU/mL. For treatment of DVT or Pulmonary Embolism: 0.3 to 0.7 IU/mL. Blood Venous blood specimen / Unknown Venipuncture / Unknown 12/24/2023 8:38 AM EDT 12/24/2023 8:40 AM EDT Ed Melissa MD LAB BLOOD ORDERABLES Performing Organization Address City/[facility]/ZIP Co de Phone Number LAB[facility]ATORY [facility] [address] [place] [address] * PREPARE PACKED RED BLOOD CELLS (12/24/2023 7:45 AM EDT) [facility] Unit Product Code [id number] LAB[facility] BLOOD B[facility] Unit Number [id number] LABO RATORY [facility] BLOOD BANK Unit ABO A LABORATORY [facility] BLOOD BANK Unit Rh POS LABORATORY [facility] BLOOD BANK Unit Crossmatch Compatible LABORATORY [facility] BLOOD BANK Unit Status PT LABORATO RY [facility] BLOOD BANK Unit Blood Type APOS LABORATORY [facility] BLOOD BANK Unit Expiration [id number] LAB[facility]ATORY [facility] BLOOD BANK Unit [facility]ode [facility] 12/24/2023 7:45 AM EDT Pamela Wood PA-C BLD BANK PRODUCT ORD ERABLES LAB[facility]ATORY [facility] BLOOD BANK [address] [place] [address] * (ABNORMAL) RENAL FUNCTION PANEL (12/24/2023 5:31 AM EDT) [facility] BUN 13 6 - 20 mg/dL 12/24/2023 6:42 AM EDT LABORATORY [facility] Creatinine 2.0(H) 0.6 - 1.2 mg/dL 12/24/2023 6:42 AM EDT LABORATORY [facility] Estimated Glomerular Filtration Rate 39(L) >=60 mL/min 12/24/2023 6:42 AM EDT LABORATORY [facility] Comment:eGFR is calculated b ased on the CKD-EPI 2020 equation Sodium 129(L) 135 - 146 mmol/L 12/24/2023 6:42 AM EDT LABORATORY [facility] Potassium 3.5 3.5 - 5.1 mmol/L 12/24/2023 6:42 AM EDT LABORATORY [facility] Chloride 93(L) 98 - 107 mmol/L 12/24/2023 6:42 AM EDT LABORATORY [facility] CO2 24 22 - 32 mmol/L 12/24/2023 6:42 AM EDT LABORATORY [facility] Anion Gap 12 7 - 15 mmol/L 12/24/2023 6:42 AM EDT LABORATORY [facility] Glucose 168(H) 70 - 120 mg/dL 12/24/2023 6:42 AM EDT LABORATORY [facility] Calcium 7.9(L) 8.4 - 10.2 mg/dL 12/24/2023 6:42 AM EDT LABORATORY [facility] Albumin 2.6(L) 3.8 - 5.0 g/dL 12/24/2023 6:42 AM EDT LABORATORY [facility] Phosphorus 3.2 2.5 - 4.8 mg/dL 12/24/2023 6:42 AM EDT LABORATORY [facility] Blood Venous blood specimen / Unknown Venipuncture / Unknown 12/24/2023 5:31 AM EDT 12/24/2023 5:39 AM EDT Sia Peres PA-C LAB BLOOD KAVEH CARD LAB[facility]ORY [facility] [address] [place] [address] * PT INR (12/24/2023 5:31 AM EDT) Prothrombin Time 15.1 11.6 - 15.2 seconds 12/24/2023 6:05 AM EDT LABORATORY [facility] INR 1.2 0.8 - 1.2 12/24/2023 6:05 AM EDT LABORATORY [facility] Blood Venous blood specimen / Unknown Venipuncture / Unknown 12/24/2023 5:31 AM EDT 12/24/2023 5:39 AM EDT Narrative LABORATORY [facility] - 12/24/2023 6:05 AM EDT Warfarin Therapy INR: 2.0-3.0 conventional anticoagulation INR: 2.5-3.5 high intensity anticoagulation Montrell Carmen PA-C LAB BLOOD ORDERABLES LABORATORY [facility] [address] [place] [address] * (ABNORMAL) CBC (12/24/2023 5:31 AM EDT) WBC 12.35(H) 4.00 - 10.80 K/uL 12/24/2023 5:52 AM EDT LABORATORY [facility] RBC 2.49 4.50 - 5.25 M/uL 12/24/2023 5:52 AM EDT LABORATORY [facility] HGB 6.6(L) 14.0 - 16.8 g/dL 12/24/2023 5:52 AM EDT LABORATORY [facility] HCT 20.7(L) 40.0 - 48.4 % 12/24/2023 5:52 AM EDT LABORATORY [facility] MCV 83.1 82.0 - 99.5 fL 12/24/2023 5:52 AM EDT LABORATORY [facility] MCH 26.5 27.0 - 34.0 pg 12/24/2023 5:52 AM EDT LABORATORY [facility] MCHC 31.9 32.0 - 36.0 g/dL 12/24/2023 5:52 AM EDT LABORATORY [facility] RDW 16.4 11.5 - 15.5 % 12/24/2023 5:52 AM EDT LABORATORY [facility] PLT 549(H) 140 - 400 K/uL 12/24/2023 5:52 AM EDT LABORATORY [facility] MPV 8.6 6.6 - 11.1 fL 12/24/2023 5:52 AM EDT LABORATORY [facility] nRBCs 0 <=0 /100 WBCs 12/24/2023 5:52 AM EDT LABORATORY [facility] Blood Venous blood specimen / Unknown Venipuncture / Unknown 12/24/2023 5:31 AM EDT 12/24/2023 5:39 AM EDT Montrell Carmen PA-C LAB BLOOD ORDERABLES Performing Organization Address [facility] de Phone Number LABORATORY [place] [address] [place] [address] * (ABNORMAL) HEPARIN, UNFRACTIONATED (12/24/2023 1:45 AM EDT) Heparin, Unfractionated 0.40(H) <0.10 IU/mL 12/24/2023 2:08 AM EDT LABORATORY [facility] Comment: Unfractionated therapeutic ranges for Anti Xa activity: For Cardiac/Neurologic treatment: 0.3 to 0.6 IU/mL. For treatment of DVT or Pulmonary Embolism: 0.3 to 0.7 IU/mL. Blood Venous blood specimen / Unknown Venipuncture / Unknown 12/24/2023 1:45 AM EDT 12/24/2023 1:54 AM EDT Ed Melissa MD LAB BLOOD ORDERABLES Performing Organization Address [facility] de Phone Number LABORATORY [place] [address] [place] [address] * (ABNORMAL) HEPARIN, UNFRACTIONATED (2023 9:07 PM EDT) Heparin, Unfractionated 0.29(H) <0.10 IU/mL 2023 9:26 PM EDT LABORATORY [facility] Comment: Unfractionated therapeutic ranges for Anti Xa activity: For Cardiac/Neurologic treatment: 0.3 to 0.6 IU/mL. For treatment of DVT or Pulmonary Embolism: 0.3 to 0.7 IU/mL. Blood Venous blood specimen / Unknown Venipuncture / Unknown 2023 9:07 PM EDT 2023 9:11 PM EDT Ed Melissa MD LAB BLOOD ORDERABLES Performing Organization Address [facility] de Phone Number LABORATORY [place] [address] [place] [address] * (ABNORMAL) HEPARIN, UNFRACTIONATED (2023 1:25 PM EDT) [facility] Heparin, Unfractionated 0.13(H) <0.10 IU/mL 2023 1:51 PM EDT LABORATORY [facility] Comment: Unfractionated therapeutic ranges for Anti Xa activity: For Cardiac/Neurologic treatment: 0.3 to 0.6 IU/mL. For treatment of DVT or Pulmonary Embolism: 0.3 to 0.7 IU/mL. Blood Venous blood specimen / Unknown Venipuncture / Unknown 2023 1:25 PM EDT 2023 1:36 PM EDT dE Melissa MD LAB BLOOD ORDERABLES Performing Organization Address [facility] de Phone Number LABORATORY [place] [address] [place] [address] * HEPARIN, UNFRACTIONATED (2023 5:38 AM EDT) [facility] Heparin, Unfractionated <0.10 <0.10 IU/mL 2023 6:05 AM EDT LABORATORY [facility] Comment: Unfractionated therapeutic ranges for Anti Xa activity: For Cardiac/Neurologic treatment: 0.3 to 0.6 IU/mL. For treatment of DVT or Pulmonary Embolism: 0.3 to 0.7 IU/mL. Blood Venous blood specimen / Unknown Venipuncture / Unknown 2023 5:38 AM EDT 2023 5:51 AM EDT Montrell Carmen PA-C LAB BLOOD ORDERABLES Performing Organization Address [facility] Co de Phone Number LABORATORY [facility] [address] [place] [address] * (ABNORMAL) RENAL FUNCTION PANEL (2023 5:38 AM EDT) BUN 12 6 - 20 mg/dL 2023 6:24 AM EDT LABORATORY [facility] Creatinine 1.5(H) 0.6 - 1.2 mg/dL 2023 6:24 AM EDT LABORATORY [facility] Estimated Glomerular Filtration Rate 55(L) >=60 mL/min 2023 6:24 AM EDT LABORATORY [facility] Comment:eGFR is calculated b ased on the CKD-EPI 2020 equation Sodium 133(L) 135 - 146 mmol/L 2023 6:24 AM EDT LABORATORY [facility] Potassium 3.5 3.5 - 5.1 mmol/L 2023 6:24 AM EDT LABORATORY [facility] Chloride 98 98 - 107 mmol/L 2023 6:24 AM EDT LABORATORY [facility] CO2 23 22 - 32 mmol/L 2023 6:24 AM EDT LABORATORY [facility] Anion Gap 12 7 - 15 mmol/L 2023 6:24 AM EDT LABORATORY [facility] Glucose 176(H) 70 - 120 mg/dL 2023 6:24 AM EDT LABORATORY [facility] Calcium 8.0(L) 8.4 - 10.2 mg/dL 2023 6:24 AM EDT LABORATORY [facility] Albumin 2.5(L) 3.8 - 5.0 g/dL 2023 6:24 AM EDT LABORATORY [facility] Phosphorus 2.8 2.5 - 4.8 mg/dL 2023 6:24 AM EDT LABORATORY C Blood Venous blood specimen / Unknown Venipuncture / Unknown 2023 5:38 AM EDT 2023 5:51 AM EDT Sia Peres PA-C LAB BLOOD KAVEH CARD LABORATORY [facility] [address] [place] [address] * PT INR (2023 5:38 AM EDT) Prothrombin Time 15.0 11.6 - 15.2 seconds 2023 6:04 AM EDT LABORATORY [facility] INR 1.2 0.8 - 1.2 2023 6:04 AM EDT LABORATORY [facility] Blood Venous blood specimen / Unknown Venipuncture / Unknown 2023 5:38 AM EDT 2023 5:51 AM EDT Narrative LABORATORY [facility] - 2023 6:04 AM EDT Warfarin Therapy INR: 2.0-3.0 conventional anticoagulation INR: 2.5-3.5 high intensity anticoagulation Montrell Carmen PA-C LAB BLOOD ORDERABLES LABORATORY [facility] [address] [place] [address] * (ABNORMAL) CBC (2023 5:38 AM EDT) WBC 13.58(H) 4.00 - 10.80 K/uL 2023 6:03 AM EDT LABORATORY [facility] RBC 2.81 4.50 - 5.25 M/uL 2023 6:03 AM EDT LABORATORY [facility] HGB 7.4(L) 14.0 - 16.8 g/dL 2023 6:03 AM EDT LABORATORY [facility] HCT 22.5(L) 40.0 - 48.4 % 2023 6:03 AM EDT LABORATORY [facility] MCV 80.1 82.0 - 99.5 fL 2023 6:03 AM EDT LABORATORY [facility] MCH 26.3 27.0 - 34.0 pg 2023 6:03 AM EDT LABORATORY [facility] MCHC 32.9 32.0 - 36.0 g/dL 2023 6:03 AM EDT LABORATORY [facility] RDW 16.2 11.5 - 15.5 % 2023 6:03 AM EDT LABORATORY [facility] PLT 638(H) 140 - 400 K/uL 2023 6:03 AM EDT LABORATORY [facility] MPV 8.8 6.6 - 11.1 fL 2023 6:03 AM EDT LABORATORY [facility] nRBCs 0 <=0 /100 WBCs 2023 6:03 AM EDT LABORATORY [facility] Blood Venous blood specimen / Unknown Venipuncture / Unknown 2023 5:38 AM EDT 2023 5:51 AM EDT Montrell Carmen PA-C LAB BLOOD ORDERABLES Performing Organization Address [facility]/ZIP Co de Phone Number LABORATORY [facility] [address] [place] [address] * VANCOMYCIN RANDOM (2023 5:38 AM EDT) Vancomycin Random 18.8 10.0 - 40.0 ug/mL 2023 6:24 AM EDT LABORATORY [facility] Blood Venous blood specimen / Unknown Venipuncture / Unknown 2023 5:38 AM EDT 2023 5:51 AM EDT Ed Melissa MD LAB BLOOD ORDERABLES Performing Organization Address City/[facility]/ZIP Co de Phone Number LABORATORY [facility] [address] [place] [address] * (ABNORMAL) CBC (12/22/2023 11:14 PM EDT) WBC 14.20(H) 4.00 - 10.80 K/uL 12/22/2023 11:35 PM EDT LABORATORY [facility] RBC 3.01 4.50 - 5.25 M/uL 12/22/2023 11:35 PM EDT LABORATORY [facility] HGB 7.8(L) 14.0 - 16.8 g/dL 12/22/2023 11:35 PM EDT LABORATORY [facility] HCT 24.9(L) 40.0 - 48.4 % 12/22/2023 11:35 PM EDT LABORATORY [facility] MCV 82.7 82.0 - 99.5 fL 12/22/2023 11:35 PM EDT LABORATORY [facility] MCH 25.9 27.0 - 34.0 pg 12/22/2023 11:35 PM EDT LABORATORY [facility] MCHC 31.3 32.0 - 36.0 g/dL 12/22/2023 11:35 PM EDT LABORATORY [facility] RDW 16.3 11.5 - 15.5 % 12/22/2023 11:35 PM EDT LABORATORY [facility] PLT 656(H) 140 - 400 K/uL 12/22/2023 11:35 PM EDT LABORATORY [facility] MPV 8.6 6.6 - 11.1 fL 12/22/2023 11:35 PM EDT LABORATORY [facility] nRBCs 0 <=0 /100 WBCs 12/22/2023 11:35 PM EDT LABORATORY [facility] Blood Venous blood specimen / Unknown Venipuncture / Unknown 12/22/2023 11:14 PM EDT 12/22/2023 11:18 PM EDT Eugenia Cantrell PA-C LAB BLOOD ORDE RABLES Performing Organization Address [facility] Co de Phone Number LABORATORY [place] [address] [place] [address] * HEPARIN, UNFRACTIONATED (12/22/2023 11:14 PM EDT) [facility] Heparin, Unfractionated <0.10 <0.10 IU/mL 12/22/2023 11:31 PM EDT LABORATORY [facility] Comment: Unfractionated therapeutic ranges for Anti Xa activity: For Cardiac/Neurologic treatment: 0.3 to 0.6 IU/mL. For treatment of DVT or Pulmonary Embolism: 0.3 to 0.7 IU/mL. Blood Venous blood specimen / Unknown Venipuncture / Unknown 12/22/2023 11:14 PM EDT 12/22/2023 11:18 PM EDT Ed Melissa MD LAB BLOOD ORDERABLES Performing Organization Address [facility] Co de Phone Number LABORATORY [place] [address] [place] [address] * XR INTRA-OP C-ARM CASE (12/22/2023 7:08 PM EDT) Narrative Scheduling, Silent - 12/22/2023 7:09 PM EDT This procedure will not be read by a Radiologist. Please see operative note. Sebas Sheridan MD RADIOLOGY (RAD GENER AL) * (ABNORMAL) CULTURE, TISSUE, AEROBIC AND ANAEROBIC (12/22/2023 6:17 PM EDT) Pathologist [facility] Culture Growth Few Staphylococcus aureus MRSA, This patient may require isolation.(AA) MICROBROTH DILUTIONS 12/27/2023 12:21 PM EDT LABORATORY [facility] Stain Description Few Polymorphonuclear leukocytes(AA) 12/27/2023 12:21 PM EDT LABORATORY [facility] Stain Description Many Gram positive cocci(AA) 12/27/2023 12:21 PM EDT LABORATORY GM Tissue Structure of right femur / Unknown 12/22/2023 6:17 PM EDT 12/22/2023 6:58 PM EDT Narrative LABORATORY [facility] - 12/27/2023 12:21 PM EDT The specimen used for this testing had ID confirmed via the Specimen Identification Confirmation/Waiver process. No anaerobic growth. Organism Antibiotic Method Susceptibility Staphylococcus aureus MRSA, This patient may require isolation. Clindamycin MICROBROTH DILUTIONS >=8: Resistant Staphylococcus aureus MRSA, This patient may require isolation. Erythromycin MICROBROTH DILUTIONS >=8: Resistant Staphylococcus aureus MRSA, This patient may require isolation. Oxacillin MICROBROTH DILUTIONS >=4: Resistant Comment:Oxacillin/Me thicillin resistant Staphylococci are considered clinically resistant to all Beta-lactam (Penicillin and Cephalosporin) antibiotics. Quinolone antibiotics should also not be used for Staphylococci that are Oxacillin resistant. Staphylococcus aureus MRSA, This patient may require isolation. Tetracycline MICROBROTH DILUTIONS <=1: Susceptible Staphylococcus aureus MRSA, This patient may require isolation. Trimeth/Sulfamethoxazo le MICROBROTH DILUTIONS <=10: Susceptible Staphylococcus aureus MRSA, This patient may require isolation. Vancomycin MICROBROTH DILUTIONS 1: Susceptible Sebas Sheridan MD LAB MICRO - GENERAL ORDERABLES LABORATORY [facility] [address] [place] [address] * SURGICAL PATHOLOGY (12/22/2023 6:14 PM EDT) Final Diagnosis A. Femur, Right, right distal femur, biopsy: Acute and chronic osteomyelitis B. Femur, Right, right distal femur #2, biopsy: Acute and chronic osteomyelitis 12/28/2023 1:33 PM EDT LABORATORY [facility] Gross Description A. Femur, Right. Received fresh for frozen with a container labeled with "Rogelio Barrera", "[id number]", "1965" and " right distal femur". The specimen consists of an aggregate of glaser-red, hemorrhagic, bone fragments and aspirate tissue measuring 3.5 x 3.5 x 0.8 cm. Touch preps are made and customer service representative teller sections are submitted for frozen in cassette A1FS. The remaining tissue is entirely submitted in cassettes A2-A4, following EDTA decalcification. Gross By: LY B. Femur, Right. Received fresh with a container labeled with "Rogelio Barrera", "[id number]", "1965" and " right distal femur 2". The specimen consists of fragments of glaser-red, hemorrhagic, bony tissue measuring 2.8 x 2.0 x 0.7 cm in aggregate. The specimen is entirely submitted in cassette B1, following EDTA decalcification. Gross By: KAYODE 12/28/2023 1:33 PM EDT LABORATORY [facility] Intraoperative Diagnosis A. Femur, Right. Bone, biopsy Frozen Section/Intraoper ative Diagnosis: Defer to cultures and permanent per Dr. Licona reported to Dr. Sheridan on 12/22/2023 at 1830. 12/28/2023 1:33 PM EDT LABORATORY [facility] Sign Out Location Pathologist sign out performed at [facility] ([facility]), [address] [place] [id number]. 12/28/2023 1:33 PM EDT LABORATORY [facility] Photographic images and diagrams represent suggs findings in this case; they are not intended to replace a complete review of the final diagnostic report. The following statement applies to Flow Cytometry, Histology, In situ Hybridization Assays and Molecular Genetics. This test was developed and performed at [facility] and its performance characteristics determined by [employer]. It has not been cleared or approved by the U.S. Food and Drug Administration. The FDA has determined that such clearance or approval is not necessary. This test is used for clinical purposes. It should not be regarded as investigational or for research. Special stains, including histochemical stains, and studies using immunologic and RUBEN methodology (where applicable) are performed with appropriate positive and negative control reactions. 12/28/2023 1:33 PM EDT LABORATORY [facility] Tissue Structure of right femur / Unknown 12/22/2023 6:14 PM EDT 12/22/2023 6:19 PM EDT Specimen from wound (specimen) Structure of right femur / Unknown 12/22/2023 6:20 PM EDT 2023 8:53 AM EDT Sebas Sheridan MD LAB PATHOLOGY ORDERA BLES Performing Organization Address [facility] de Phone Number LABORATORY [facility] [address] [place] [address] * HEPARIN, UNFRACTIONATED (12/22/2023 3:33 PM EDT) Pathologist [facility] Heparin, Unfractionated <0.10 <0.10 IU/mL 12/22/2023 4:03 PM EDT LABORATORY [facility] Comment: Unfractionated therapeutic ranges for Anti Xa activity: For Cardiac/Neurologic treatment: 0.3 to 0.6 IU/mL. For treatment of DVT or Pulmonary Embolism: 0.3 to 0.7 IU/mL. Blood Venous blood specimen / Unknown Venipuncture / Unknown 12/22/2023 3:33 PM EDT 12/22/2023 3:41 PM EDT Ed Melissa MD LAB BLOOD ORDERABLES Performing Organization Address [facility] Co de Phone Number LABORATORY [facility] [address] [place] [address] * (ABNORMAL) CBC (12/22/2023 2:27 PM EDT) WBC 14.10(H) 4.00 - 10.80 K/uL 12/22/2023 2:56 PM EDT LABORATORY [facility] RBC 2.85 4.50 - 5.25 M/uL 12/22/2023 2:56 PM EDT LABORATORY [facility] HGB 7.5(L) 14.0 - 16.8 g/dL 12/22/2023 2:56 PM EDT LABORATORY [facility] HCT 23.2(L) 40.0 - 48.4 % 12/22/2023 2:56 PM EDT LABORATORY [facility] MCV 81.4 82.0 - 99.5 fL 12/22/2023 2:56 PM EDT LABORATORY [facility] MCH 26.3 27.0 - 34.0 pg 12/22/2023 2:56 PM EDT LABORATORY [facility] MCHC 32.3 32.0 - 36.0 g/dL 12/22/2023 2:56 PM EDT LABORATORY [facility] RDW 15.9 11.5 - 15.5 % 12/22/2023 2:56 PM EDT LABORATORY [facility] PLT 609(H) 140 - 400 K/uL 12/22/2023 2:56 PM EDT LABORATORY [facility] MPV 8.8 6.6 - 11.1 fL 12/22/2023 2:56 PM EDT LABORATORY [facility] nRBCs 0 <=0 /100 WBCs 12/22/2023 2:56 PM EDT LABORATORY GM Blood Venous blood specimen / Unknown Venipuncture / Unknown 12/22/2023 2:27 PM EDT 12/22/2023 2:42 PM EDT Sia Peres PA-C LAB BLOOD ORDE [facility] Organization Address City/State/ZIP Co de Phone Number LABORATORY [facility] [address] [place] [address] * GLUCOSE METER, POINT OF CARE (12/22/2023 2:04 PM EDT) [facility] Glucose Meter 108 70 - 120 mg/dL 12/22/2023 2:07 PM EDT [email or web address] Blood Whole blood specimen / Unknown 12/22/2023 2:04 PM EDT 12/22/2023 2:07 PM EDT Ed Melissa MD LAB POINT OF CARE TE ST DOCKED DEVICE UNSOLICITED RESULTS [facility] [address] [place] [address] * TRANSFUSE PACKED RED BLOOD CELLS (12/22/2023 1:32 PM EDT) Sia Peres PA-C BLJacqueline BANK TRANF USE ORDERABLES * TRANSFUSE PACKED RED BLOOD CELLS (12/22/2023 1:32 PM EDT) Sia Peres PA-C BLD BANK TRANF USE ORDERABLES * VANCOMYCIN RANDOM (12/22/2023 11:03 AM EDT) Pathologist [facility] Vancomycin Random 13.4 10.0 - 40.0 ug/mL 12/22/2023 12:18 PM EDT LABORATORY [facility] Blood Venous blood specimen / Unknown Venipuncture / Unknown 12/22/2023 11:03 AM EDT 12/22/2023 11:15 AM EDT Montrell Carmen PA-C LAB BLOOD ORDERABLES Performing Organization Address City/[facility]/ZIP Co de Phone Number LABORATORY [facility] [address] [place] [address] * PREPARE PACKED RED BLOOD CELLS (12/22/2023 7:40 AM EDT) Unit Product Code [id number] LABORATORY [facility] BLOOD BANK Unit Number [id number] LABO RATORY [facility] BLOOD BANK Unit ABO A LABORATORY [facility] BLOOD BANK Unit Rh POS LABORATORY C BLOOD BANK Unit [employer] [facility]AT[facility] C BLOOD BANK Unit Status PT LABORATO RY [facility] BLOOD BANK Unit Blood Type APOS LABORATORY C BLOOD BANK Unit Expiration [id number] LAB[facility]AT[facility] BLOOD BANK Unit Barcode 6200 LABORAT ORY [facility] BLOOD BANK 12/22/2023 7:40 AM EDT Sia Peres PA-C BLD BANK PRODU CT ORDERABLES LABORATORY [facility] BLOOD BANK [address] [place] [address] * HEPARIN, UNFRACTIONATED (12/22/2023 5:52 AM EDT) Pathologist [facility] Heparin, Unfractionated <0.10 <0.10 IU/mL 12/22/2023 6:37 AM EDT LAB[facility]ATORY [facility] Comment: Unfractionated therapeutic ranges for Anti Xa activity: For Cardiac/Neurologic treatment: 0.3 to 0.6 IU/mL. For treatment of DVT or Pulmonary Embolism: 0.3 to 0.7 IU/mL. Blood Venous blood specimen / Unknown Venipuncture / Unknown 12/22/2023 5:52 AM EDT 12/22/2023 6:19 AM EDT Montrell Carmen PA-C LAB BLOOD ORDERABLES Performing Organization Address City/State/[facility] Co de Phone Number LABORATORY [facility] [address] [place] [address] * (ABNORMAL) BASIC METABOLIC PANEL (12/22/2023 5:52 AM EDT) [facility] BUN 12 6 - 20 mg/dL 12/22/2023 7:24 AM EDT LABORATORY [facility] Creatinine 1.4(H) 0.6 - 1.2 mg/dL 12/22/2023 7:24 AM EDT LABORATORY [facility] Estimated Glomerular Filtration Rate 61 >=60 mL/min 12/22/2023 7:24 AM EDT LABORATORY [facility] Comment:eGFR is calculated b ased on the CKD-EPI 2020 equation Sodium 131(L) 135 - 146 mmol/L 12/22/2023 7:24 AM EDT LABORATORY C Potassium 3.5 3.5 - 5.1 mmol/L 12/22/2023 7:24 AM EDT LABORATORY [facility] Chloride 97(L) 98 - 107 mmol/L 12/22/2023 7:24 AM EDT LABORATORY [facility] CO2 25 22 - 32 mmol/L 12/22/2023 7:24 AM EDT LABORATORY C Anion Gap 9 7 - 15 mmol/L 12/22/2023 7:24 AM EDT LABORATORY C Glucose 124(H) 70 - 120 mg/dL 12/22/2023 7:24 AM EDT LABORATORY [facility] Calcium 8.2(L) 8.4 - 10.2 mg/dL 12/22/2023 7:24 AM EDT LABORATORY [facility] Blood Venous blood specimen / Unknown Venipuncture / Unknown 12/22/2023 5:52 AM EDT 12/22/2023 6:19 AM EDT Montrell GALLAGHER-C LAB BLOOD ORDERABLES Performing Organization Address [facility] Co de Phone Number LABORATORY [address] [address] * PT INR (12/22/2023 5:52 AM EDT) Prothrombin Time 15.2 11.6 - 15.2 seconds 12/22/2023 6:37 AM EDT LABORATORY [facility] INR 1.2 0.8 - 1.2 12/22/2023 6:37 AM EDT LAB[facility]ATORY [facility] Blood Venous blood specimen / Unknown Venipuncture / Unknown 12/22/2023 5:52 AM EDT 12/22/2023 6:19 AM EDT Narrative LABORATORY [facility] - 12/22/2023 6:37 AM EDT Warfarin Therapy INR: 2.0-3.0 conventional anticoagulation INR: 2.5-3.5 high intensity anticoagulation Montrell GALLAGHER-C LAB BLOOD ORDERABLES Performing Organization Address [facility] Co de Phone Number LABORATORY [address] [address] * (ABNORMAL) CBC (12/22/2023 5:52 AM EDT) WBC 13.85(H) 4.00 - 10.80 K/uL 12/22/2023 6:35 AM EDT LABORATORY [facility] RBC 2.52 4.50 - 5.25 M/uL 12/22/2023 6:35 AM EDT LABORATORY [facility] HGB 6.6(L) 14.0 - 16.8 g/dL 12/22/2023 6:35 AM EDT LABORATORY GM HCT 20.7(L) 40.0 - 48.4 % 12/22/2023 6:35 AM EDT LABORATORY GM MCV 82.1 82.0 - 99.5 fL 12/22/2023 6:35 AM EDT LABORATORY [facility] MCH 26.2 27.0 - 34.0 pg 12/22/2023 6:35 AM EDT LABORATORY [facility] MCHC 31.9 32.0 - 36.0 g/dL 12/22/2023 6:35 AM EDT LABORATORY C RDW 15.1 11.5 - 15.5 % 12/22/2023 6:35 AM EDT LABORATORY GM PLT 590(H) 140 - 400 K/uL 12/22/2023 6:35 AM EDT LABORATORY C MPV 8.9 6.6 - 11.1 fL 12/22/2023 6:35 AM EDT LABORATORY [facility] nRBCs 0 <=0 /100 WBCs 12/22/2023 6:35 AM EDT LABORATORY [facility] Blood Venous blood specimen / Unknown Venipuncture / Unknown 12/22/2023 5:52 AM EDT 12/22/2023 6:19 AM EDT [email or web address] PA-C LAB BLOOD ORDERABLES Performing Organization Address [facility]/ZIP Co de Phone Number LABORATORY [facility] [address] [place] [address] * CULTURE, URINE, QUANTITATIVE (12/22/2023 12:06 AM EDT) [facility] Culture Growth No significant growth 2023 7:17 AM EDT LABORATORY [facility] Urine Urine specimen obtained by clean catch procedure / Unknown Non-blood Collection / Unknown 12/22/2023 12:06 AM EDT 12/22/2023 12:18 AM EDT Bridj PA-C LAB MICRO - GENERAL ORDERABLES Performing Organization Address City/[facility]/ZIP Co de Phone Number LABORATORY [facility] [address] [place] [address] * (ABNORMAL) MRSA SCREEN, PCR (12/22/2023 12:06 AM EDT) MRSA PCR Result Positive( A) Negative 12/22/2023 1:33 AM EDT LABORATORY [facility] Comment:Methicillin resistan t Staphylococcus aureus detected by PCR (amplified probe). MRSA-This patient may require isolation. Please refer to Infection Control isolation policy. Upper Respiratory Swab of internal nose / Unknown Non-blood Collection / Unknown 12/22/2023 12:06 AM EDT 12/22/2023 12:19 AM EDT Montrell Carmen PA-C LAB MICRO - GENERAL ORDERABLES LABORATORY [facility] [address] [place] [address] * (ABNORMAL) URINALYSIS, REFLEX TO CULTURE (12/22/2023 12:06 AM EDT) Color, Urine Light Yellow Colorless, Light Yellow, Yellow, Dark Yellow 12/22/2023 12:42 AM EDT LABORATORY C Clarity, Urine Slightly Cloudy(A) Clear 12/22/2023 12:42 AM EDT LABORATORY C Glucose, Urine Negative Negative mg/dL 12/22/2023 12:42 AM EDT LABORATORY [facility] Bilirubin, Urine Negative Negative 12/22/2023 12:42 AM EDT LABORATORY C Ketone, Urine Negative Negative mg/dL 12/22/2023 12:42 AM EDT LABORATORY C Specific Hustler, Urine 1.011 1.003 - 1.030 12/22/2023 12:42 AM EDT LABORATORY C Blood, Urine Trace(A) Negative 12/22/2023 12:42 AM EDT LABORATORY C pH, Urine 5.5 5.0 - 7.5 Units 12/22/2023 12:42 AM EDT LABORATORY C Protein, Urine 30(A) Negative mg/dL 12/22/2023 12:42 AM EDT LABORATORY C Urobilinogen, Urine Normal Normal mg/dL 12/22/2023 12:42 AM EDT LABORATORY C Nitrite, Urine Negative Negative 12/22/2023 12:42 AM EDT LABORATORY C Esterase, Urine Moderate(A) Negative 12/22/2023 12:42 AM EDT LABORATORY C RBC, Urine 3-5(A) 0 - 2 /HPF 12/22/2023 12:42 AM EDT LABORATORY [facility] WBC, Urine 20-29(A) 0 - 2 /HPF 12/22/2023 12:42 AM EDT LABORATORY [facility] Bacteria, Urine 0-25 0 - 25 /HPF 12/22/2023 12:42 AM EDT LABORATORY [facility] WBC Clumps, Urine Present(A) None /HPF 12/22/2023 12:42 AM EDT LABORATORY [facility] Yeast, Urine Present(A) None /HPF 12/22/2023 12:42 AM EDT LABORATORY [facility] Culture, Urine 12/22/2023 12:42 AM EDT LABORATORY [facility] Comment:Quantitative urine c ulture to be performed Urine Urine specimen obtained by clean catch procedure / Unknown Non-blood Collection / Unknown 12/22/2023 12:06 AM EDT 12/22/2023 12:18 AM EDT Montrell Carmen PA-C LAB URINE ORDERABLES Performing Organization Address City/[facility]/ZIP Co de Phone Number LABORATORY [place] [address] [place] [address] * URINALYSIS, REFLEX TO CULTURE (CUP ONLY) (12/22/2023 12:06 AM EDT) Urinalysis, Reflex to Culture Specimen Specimen collected and received 12/22/2023 2:01 AM EDT LABORATORY [facility] Urine Urine specimen obtained by clean catch procedure / Unknown Non-blood Collection / Unknown 12/22/2023 12:06 AM EDT 12/22/2023 12:19 AM EDT Montrell Carmen PA-C LAB URINE ORDERABLES Performing Organization Address City/[facility]/ZIP Co de Phone Number LABORATORY [place] [address] [place] [address] * CULTURE, BLOOD (12/21/2023 10:49 PM EDT) Blood Culture Growth No growth 12/26/2023 11:01 PM EDT LABORATORY [facility] Blood Venous blood specimen / Unknown Venipuncture / Unknown 12/21/2023 10:49 PM EDT 12/21/2023 10:57 PM EDT Montrell Carmen AILEEN-C LAB MICRO - GENERAL ORDERABLES Performing Organization Address [facility] de Phone Number LABORATORY [facility] [address] [place] [address] * ABO/RH (12/21/2023 10:46 PM EDT) ABO A 12/22/2023 12:13 AM EDT LABORATORY [facility] BLOOD BANK Rh Positive 12/22/2023 12:13 AM EDT LABORATORY [facility] BLOOD BANK Blood Venous blood specimen / Unknown Venipuncture / Unknown 12/21/2023 10:46 PM EDT 12/21/2023 10:53 PM EDT Montrell Carmen AILEEN-C LAB BLOOD BANK TEST ORDERABLES Performing Organization Address [facility] Phone Number LABORATORY [facility] BLOOD BANK [address] [place] [address] * VANCOMYCIN RANDOM (12/21/2023 10:46 PM EDT) Vancomycin Random 29.6 10.0 - 40.0 ug/mL 12/21/2023 11:34 PM EDT LABORATORY [facility] Blood Venous blood specimen / Unknown Venipuncture / Unknown 12/21/2023 10:46 PM EDT 12/21/2023 10:53 PM EDT Montrell Carmen AILEEN-C LAB BLOOD ORDERABLES Performing Organization Address [facility] de Phone Number LABORATORY [facility] [address] [place] [address] * (ABNORMAL) DIFFERENTIAL, AUTOMATED (12/21/2023 10:46 PM EDT) WBC 14.95(H) 4.00 - 10.80 K/uL 12/21/2023 11:03 PM EDT LABORATORY GM Neutrophils % 74.9 40.0 - 75.0 % 12/21/2023 11:03 PM EDT LABORATORY [facility] Lymphocytes % 12.4(L) 18.0 - 42.0 % 12/21/2023 11:03 PM EDT LABORATORY [facility] Monocytes % 7.2 1.0 - 11.0 % 12/21/2023 11:03 PM EDT LABORATORY [facility] Eosinophils % 2.3 0.0 - 6.0 % 12/21/2023 11:03 PM EDT LABORATORY [facility] Basophils % 0.4 0.0 - 2.0 % 12/21/2023 11:03 PM EDT LABORATORY [facility] Immature Granulocytes % 2.8(H) 0.0 - 2.0 % 12/21/2023 11:03 PM EDT LABORATORY [facility] Absolute Neutrophils 11.20(H) 1.80 - 7.70 K/uL 12/21/2023 11:03 PM EDT LABORATORY [facility] Absolute Lymphocytes 1.85 1.00 - 4.80 K/ul 12/21/2023 11:03 PM EDT LABORATORY [facility] Absolute Monocytes 1.08 0.00 - 1.10 K/uL 12/21/2023 11:03 PM EDT LABORATORY [facility] Absolute Eosinophils 0.34 0.00 - 0.70 K/uL 12/21/2023 11:03 PM EDT LABORATORY [facility] Absolute Basophils 0.06 0.00 - 0.20 K/uL 12/21/2023 11:03 PM EDT LABORATORY [facility] Absolute Immature Granulocytes 0.42(H) 0.00 - 0.20 K/uL 12/21/2023 11:03 PM EDT LABORATORY [facility] Blood Venous blood specimen / Unknown Venipuncture / Unknown 12/21/2023 10:46 PM EDT 12/21/2023 10:53 PM EDT Montrell Carmen PA-C LAB BLOOD ORDERABLES LABORATORY [facility] [address] [place] [address] * (ABNORMAL) CBC (12/21/2023 10:46 PM EDT) WBC 14.95(H) 4.00 - 10.80 K/uL 12/21/2023 11:03 PM EDT LABORATORY [facility] RBC 2.58 4.50 - 5.25 M/uL 12/21/2023 11:03 PM EDT LABORATORY [facility] HGB 7.0(L) 14.0 - 16.8 g/dL 12/21/2023 11:03 PM EDT LABORATORY GM HCT 21.2(L) 40.0 - 48.4 % 12/21/2023 11:03 PM EDT LABORATORY [facility] MCV 82.2 82.0 - 99.5 fL 12/21/2023 11:03 PM EDT LABORATORY GM MCH 27.1 27.0 - 34.0 pg 12/21/2023 11:03 PM EDT LABORATORY [facility] MCHC 33.0 32.0 - 36.0 g/dL 12/21/2023 11:03 PM EDT LABORATORY [facility] RDW 15.1 11.5 - 15.5 % 12/21/2023 11:03 PM EDT LABORATORY [facility] PLT 643(H) 140 - 400 K/uL 12/21/2023 11:03 PM EDT LABORATORY [facility] MPV 8.9 6.6 - 11.1 fL 12/21/2023 11:03 PM EDT LABORATORY [facility] nRBCs 0 <=0 /100 WBCs 12/21/2023 11:03 PM EDT LABORATORY [facility] Blood Venous blood specimen / Unknown Venipuncture / Unknown 12/21/2023 10:46 PM EDT 12/21/2023 10:53 PM EDT Montrell Carmen PA-C LAB BLOOD ORDERABLES Performing Organization Address City/State/[facility] Co de Phone Number LABORATORY [facility] [address] [place] [address] * HEPARIN, UNFRACTIONATED (12/21/2023 10:46 PM EDT) [facility] Heparin, Unfractionated <0.10 <0.10 IU/mL 12/21/2023 11:20 PM EDT LABORATORY [facility] Comment: Unfractionated therapeutic ranges for Anti Xa activity: For Cardiac/Neurologic treatment: 0.3 to 0.6 IU/mL. For treatment of DVT or Pulmonary Embolism: 0.3 to 0.7 IU/mL. Blood Venous blood specimen / Unknown Venipuncture / Unknown 12/21/2023 10:46 PM EDT 12/21/2023 10:53 PM EDT Montrell Carmen PA-C LAB BLOOD ORDERABLES Performing Organization Address [facility] de Phone Number LABORATORY [facility] [address] [place] [address] * (ABNORMAL) APTT (12/21/2023 10:46 PM EDT) aPTT 41(H) 21 - 38 seconds 12/21/2023 11:20 PM EDT LABORATORY [facility] Blood Venous blood specimen / Unknown Venipuncture / Unknown 12/21/2023 10:46 PM EDT 12/21/2023 10:53 PM EDT Narrative LABORATORY [facility] - 12/21/2023 11:20 PM EDT Anticoagulation may affect testing. Refer to [employer] Test Catalog for a list of effects. Montrell GALLAGHER-C LAB BLOOD ORDERABLES Performing Organization Address [facility] de Phone Number LABORATORY [facility] [address] [place] [address] * PT INR (12/21/2023 10:46 PM EDT) Prothrombin Time 15.0 11.6 - 15.2 seconds 12/21/2023 11:10 PM EDT LABORATORY [facility] INR 1.2 0.8 - 1.2 12/21/2023 11:10 PM EDT LABORATORY [facility] Blood Venous blood specimen / Unknown Venipuncture / Unknown 12/21/2023 10:46 PM EDT 12/21/2023 10:53 PM EDT Narrative LABORATORY C - 12/21/2023 11:10 PM EDT Warfarin Therapy INR: 2.0-3.0 conventional anticoagulation INR: 2.5-3.5 high intensity anticoagulation Montrell Carmen PA-C LAB BLOOD ORDERABLES Performing Organization Address [facility] Co de Phone Number LABORATORY [facility] [address] [place] [address] * (ABNORMAL) BLOOD GAS, VENOUS (12/21/2023 10:46 PM EDT) Temperature 37.0 C 12/21/2023 11:01 PM EDT LABORATORY [facility] pH, Venous 7.460(H) 7.320 - 7.430 units 12/21/2023 11:01 PM EDT LABORATORY [facility] pCO2, Venous 37.9(L) 40.0 - 60.0 mmHg 12/21/2023 11:01 PM EDT LABORATORY [facility] pO2, Venous 48.0 25.0 - 50.0 mmHg 12/21/2023 11:01 PM EDT LABORATORY [facility] Base Excess, Venous 3.0(H) -2.0 - 2.0 mmol/L 12/21/2023 11:01 PM EDT LABORATORY C HGB 6.1(L) 14.0 - 16.8 g/dL 12/21/2023 11:01 PM EDT LABORATORY C Oxyhemoglobin, Venous 81.8 40.0 - 85.0 % total Hgb 12/21/2023 11:01 PM EDT LABORATORY C Carboxyhemoglobi n, Whole Blood 2.0(H) <=1.5 % total Hgb 12/21/2023 11:01 PM EDT LABORATORY C Comment:Smokers: 0-9.0 % Methemoglobin, Whole Blood 0.7 <=1.5 % total Hgb 12/21/2023 11:01 PM EDT LABORATORY C Reduced Hemoglobin, Venous 15.5 % total Hgb 12/21/2023 11:01 PM EDT LABORATORY C O2 Content, Venous 7.0 7.0 - 18.0 %vol 12/21/2023 11:01 PM EDT LABORATORY C Bicarbonate, Whole Blood 26.6 23.0 - 31.0 mmol/L 12/21/2023 11:01 PM EDT LABORATORY [facility] Blood Venous blood specimen / Unknown Venipuncture / Unknown 12/21/2023 10:46 PM EDT 12/21/2023 10:52 PM EDT Narrative LABORATORY [facility] - 12/21/2023 11:01 PM EDT Spoke with Nursing staff to confirm no contamination Montrell Carmen PA-C LAB BLOOD ORDERABLES Performing Organization Address City/[facility]/ZIP Co de Phone Number LABORATORY [address] [address] * CULTURE, BLOOD (12/21/2023 10:46 PM EDT) Pathologist [facility] Blood Culture Growth No growth 12/26/2023 11:01 PM EDT LABORATORY [facility] Blood Venous blood specimen / Unknown Venipuncture / Unknown 12/21/2023 10:46 PM EDT 12/21/2023 10:57 PM EDT Montrell Carmen PA-C LAB MICRO - GENERAL ORDERABLES Performing Organization Address [facility] Co de Phone Number LABORATORY [address] [address] * (ABNORMAL) PROCALCITONIN (12/21/2023 10:46 PM EDT) Pathologist [facility] Procalcitonin 0.26(H) <0.10 ng/mL 12/21/2023 11:34 PM EDT LABORATORY [facility] Blood Venous blood specimen / Unknown Venipuncture / Unknown 12/21/2023 10:46 PM EDT 12/21/2023 10:53 PM EDT Narrative LABORATORY [facility] - 12/21/2023 11:34 PM EDT Less than 0.5 ng/mL: Low risk for progression to sepsis. Review patients condition for localized infections. 0.5 to 2.0 ng/mL: Intermediate risk for progresion to sepsis. Review underlying conditions. Recommend repeat PCT after 6 hours has elapsed. Greater than 2.0 ng/mL: high risk for progression to sepsis unless other causes are known. Montrell Carmen PA-C LAB BLOOD ORDERABLES Performing Organization Address [facility] Co de Phone Number LABORATORY [address] [address] * TYPE AND SCREEN (12/21/2023 10:46 PM EDT) ABO A 12/21/2023 11:48 PM EDT LABORATORY [facility] BLOOD BANK Rh Positive 12/21/2023 11:48 PM EDT LABORATORY [facility] BLOOD BANK Red Blood Cell Antibody Screen Negative 12/21/2023 11:48 PM EDT LABORATORY [facility] BLOOD BANK Specimen Expiration Date 12/24/2023 23:59 12/21/2023 11:48 PM EDT LABORATORY [facility] BLOOD BANK Blood Venous blood specimen / Unknown Venipuncture / Unknown 12/21/2023 10:46 PM EDT 12/21/2023 10:53 PM EDT Montrell Carmen PA-C LAB BLOOD BANK TEST ORDERABLES LABORATORY [facility] BLOOD BANK [address] [place] [address] * (ABNORMAL) HEPATIC FUNCTION PANEL (12/21/2023 10:46 PM EDT) Albumin 2.4(L) 3.8 - 5.0 g/dL 12/21/2023 11:34 PM EDT LABORATORY [facility] AST 110(H) 10 - 50 U/L 12/21/2023 11:34 PM EDT LABORATORY [facility] Alkaline Phosphatase 276(H) 35 - 130 U/L 12/21/2023 11:34 PM EDT LABORATORY [facility] ALT 105(H) 10 - 50 U/L 12/21/2023 11:34 PM EDT LABORATORY [facility] Bilirubin, Total 0.3 <=1.2 mg/dL 12/21/2023 11:34 PM EDT LABORATORY [facility] Bilirubin, Direct <0.2 0.0 - 0.3 mg/dL 12/21/2023 11:34 PM EDT LABORATORY [facility] Protein 6.6 6.0 - 8.3 g/dL 12/21/2023 11:34 PM EDT LABORATORY C Blood Venous blood specimen / Unknown Venipuncture / Unknown 12/21/2023 10:46 PM EDT 12/21/2023 10:53 PM EDT Montrell GALLAGHER-C LAB BLOOD ORDERABLES Performing Organization Address [facility] Co de Phone Number LABORATORY [facility] [address] [place] [address] * TROPONIN T, HIGH SENSITIVITY (12/21/2023 10:46 PM EDT) Troponin T, High Sensitivity 14 <=22 ng/L 12/21/2023 11:34 PM EDT LABORATORY [facility] Blood Venous blood specimen / Unknown Venipuncture / Unknown 12/21/2023 10:46 PM EDT 12/21/2023 10:53 PM EDT Montrell GALLAGHER-C LAB BLOOD ORDERABLES Performing Organization Address [facility] Co de Phone Number LABORATORY [facility] [address] [place] [address] * LACTATE (12/21/2023 10:46 PM EDT) Lactate 1.0 0.4 - 2.0 mmol/L 12/21/2023 11:17 PM EDT LABORATORY [facility] Blood Venous blood specimen / Unknown Venipuncture / Unknown 12/21/2023 10:46 PM EDT 12/21/2023 10:53 PM EDT Montrell GALLAGHER-C LAB BLOOD ORDERABLES Performing Organization Address [facility]/ZIP Co de Phone Number LABORATORY [facility] [address] [place] [address] * (ABNORMAL) PHOSPHORUS (12/21/2023 10:46 PM EDT) Phosphorus 2.3(L) 2.5 - 4.8 mg/dL 12/21/2023 11:34 PM EDT LABORATORY [facility] Blood Venous blood specimen / Unknown Venipuncture / Unknown 12/21/2023 10:46 PM EDT 12/21/2023 10:53 PM EDT Montrell GALLAGHER-C LAB BLOOD ORDERABLES LABORATORY [facility] [address] [place] [address] * MAGNESIUM (12/21/2023 10:46 PM EDT) Magnesium 1.8 1.5 - 2.6 mg/dL 12/21/2023 11:34 PM EDT LABORATORY [facility] Blood Venous blood specimen / Unknown Venipuncture / Unknown 12/21/2023 10:46 PM EDT 12/21/2023 10:53 PM EDT Montrell Carmen PA-C LAB BLOOD ORDERABLES Performing Organization Address [facility] Co de Phone Number LABORATORY [facility] [address] [place] [address] * (ABNORMAL) BASIC METABOLIC PANEL (12/21/2023 10:46 PM EDT) BUN 13 6 - 20 mg/dL 12/21/2023 11:34 PM EDT LABORATORY [facility] Creatinine 1.3(H) 0.6 - 1.2 mg/dL 12/21/2023 11:34 PM EDT LABORATORY [facility] Estimated Glomerular Filtration Rate 64 >=60 mL/min 12/21/2023 11:34 PM EDT LABORATORY [facility] Comment:eGFR is calculated b ased on the CKD-EPI 2020 equation Sodium 132(L) 135 - 146 mmol/L 12/21/2023 11:34 PM EDT LABORATORY [facility] Potassium 3.6 3.5 - 5.1 mmol/L 12/21/2023 11:34 PM EDT LABORATORY [facility] Chloride 97(L) 98 - 107 mmol/L 12/21/2023 11:34 PM EDT LABORATORY [facility] CO2 24 22 - 32 mmol/L 12/21/2023 11:34 PM EDT LABORATORY [facility] Anion Gap 11 7 - 15 mmol/L 12/21/2023 11:34 PM EDT LABORATORY [facility] Glucose 117 70 - 120 mg/dL 12/21/2023 11:34 PM EDT LABORATORY [facility] Calcium 8.0(L) 8.4 - 10.2 mg/dL 12/21/2023 11:34 PM EDT LABORATORY [facility] Blood Venous blood specimen / Unknown Venipuncture / Unknown 12/21/2023 10:46 PM EDT 12/21/2023 10:53 PM EDT Montrell Carmen PA-C LAB BLOOD ORDERABLES LABORATORY [facility] [address] [place] [address] documented in this encounter Visit Diagnoses Diagnosis Sepsis (HCC)- Primary Unspecified septicemia MRSA bacteremia Bacteremia Chest pain Chest pain, unspecified Pain Generalized pain Electrolyte abnormality Electrolyte and fluid disorders not elsewhere classified 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) Acute osteomyelitis, pelvic region and thigh Endocarditis of mitral valve DICK (acute kidney injury) (HCC) Acute kidney failure, unspecified 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) Acute deep vein thrombosis (DVT) of right lower extremity, unspecified vein (HCC) Pelvic abscess in male (HCC) Acute bilateral low back pain without sciatica Pain of right lower leg Pain in limb DICK (acute kidney injury) (HCC) Acute kidney failure, unspecified MRSA bacteremia Bacteremia Cavitary lesion of lung Other diseases of lung, not elsewhere classified Dyslipidemia, goal LDL below 130 Other and unspecified hyperlipidemia Obstructive sleep apnea Obstructive sleep apnea (adult) (pediatric) Anemia Anemia, unspecified Lytic bone lesion of femur Acute deep vein thrombosis (DVT) of right lower extremity (HCC) Pelvic abscess in male (HCC) Endocarditis of mitral valve Family history of lung cancer Family history of malignant neoplasm of trachea, bronchus, and lung 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) Acute osteomyelitis, pelvic region and thigh documented in this encounter Administered Medications Inactive Administered Medications - up to 3 most recent administrations Medication Order MAR Action Action Date Dose Rate Site Acetaminophen (Tylenol) tab 650 mg 650 mg, Oral, Q4H PRN Pain, Mild, Starting on Thu12/21/23 at 2320, Until Thu12/23/23 at 0317, Maximum of 4 grams (4000 mg) per day. Given 12/22/2023 3:30 PM EDT 975 mg Acetaminophen (Tylenol) tab 650 mg 650 mg, Oral, ONCE, On Thu12/22/23 at 0415, For 1 dose, Maximum of 4 grams (4000 mg) per day. Given 12/22/2023 3:47 AM EDT 650 mg Acetaminophen (Tylenol) tab 650 mg 650 mg, Oral, Q4H PRN Pain, Mild, Fever >38C(100.5F), Starting on Thu12/23/23 at 0317, Until 01/02/24 at 1631, Maximum of 4 grams (4000 mg) per day. Given 2023 7:43 PM EDT 650 mg Given 2023 3:24 AM EDT 650 mg Alteplase (Cathflo Activase) inj 2 mg 2 mg, IV Push, PRN line occlusion , Starting on Thu12/25/23 at 0749, Until 01/02/24 at 1631, For 15 doses, For use in Catheter occlusion to be administered by IV Therapy nurses only at [facility] [place] At [facility]: IV Therapy PICC RN, Nursing Judge'S Clerk, [facility]ICU RN's and Emergency Department RN's *Obtain Alteplase (CathFlo Activase) *Reconstitute Alteplase (CathFlo Activase) 2mg in 2.2ml sterile water *Instill Alteplase (CathFlo Activase) into occluded lumen(s) *After 30 minutes dwell time in catheter, assess catheter patency by attempting to aspirate blood. If catheter is patent withdraw 4-5 ml of blood to remove Alteplase (CathFlo Activase) and residual clot. Flush lumen with 10ml 0.9% normal saline *If catheter function is not restored allow for further dwell up to 120 minutes. *If catheter function is not restored, a second dose of Alteplase (CathFlo Activase) may be administered. *if catheter is stll not restored call a physician Apixaban (Eliquis) tab 5 mg 5 mg, Oral, BID (.AM/PM), First dose on Thu01/02/24 at 0900, Last dose on Thu01/08/24 at 2100, For 14 doses Given 01/02/2024 8:14 AM EDT 5 mg Baclofen (Lioresal) tab 10 mg 10 mg, Oral, TID(AM/NOON/HS), First dose (after last modification) on Thu12/25/23 at 2200, Until Discontinued Given 12/29/2023 5:11 AM EDT 10 mg Given 12/28/2023 9:25 PM EDT 10 mg Given 12/28/2023 1:16 PM EDT 10 mg Baclofen (Lioresal) tab 20 mg 20 mg, Oral, TID(AM/NOON/HS), First dose on Thu12/21/23 at 2315, Until Discontinued Given 12/25/2023 6:44 AM EDT 20 mg Given 12/24/2023 9:36 PM EDT 20 mg Given 12/24/2023 12:43 PM EDT 20 mg buffered lidocaine 1 % inj Intradermal, ONCE PRN INTRA PROCEDURE, Starting on Samantha 12/31/23 at 1512, Until Thu12/31/23 at 1512, Intra-Op Given 12/31/2023 3:12 PM EDT 10 mL Chest Right chlorhexidine gluconate cloth 2 % pad External, [id number], First dose on Thu12/25/23 at 1000, Until Discontinued, Applied to appropriate patients per authorization manager's recommendations following daily care. May use more than one Pad (cloth/wipe) as needed to complete care. Given 01/02/2024 8:15 AM EDT 1 Pad Given 01/01/2024 10:00 AM EDT 1 Pad Given 12/31/2023 9:02 AM EDT 1 Pad Chlorthalidone (Hygroton) tab 25 mg 25 mg, Oral, Daily(AM), First dose on Thu12/22/23 at 0900, Until Discontinued Given 12/24/2023 9:01 AM EDT 25 mg Given 2023 7:46 AM EDT 25 mg Given 12/22/2023 9:11 AM EDT 25 mg DAPTOmycin (Cubicin) inj 650 mg IV Push, Administer over 2 Minutes, Q48H, 7 doses, First dose on Thu12/28/23 at 1400, Last dose on Thu01/09/24 at 1400 Given 01/01/2024 2:19 PM EDT 650 mg Given 12/30/2023 4:24 PM EDT 650 mg Given 12/28/2023 3:29 PM EDT 650 mg fentaNYL (PF) inj 50 mcg 50 mcg, IV Push, Q5 MIN PRN Other, sedation for block placement, Starting on Thu12/25/23 at 0933, Until Thu12/25/23 at 1450, For 2 doses, Maximum 100 mcg. Preop Anesthesia Block When given IV Push its recommended that the dose be given over 3 to 5 minutes., Pre-Op Given 12/25/2023 9:34 AM EDT 50 mcg fentaNYL (PF) inj ONCE PRN INTRA PROCEDURE, Starting on Samantha 12/31/23 at 1504, Until Samantha 12/31/23 at 1504, Intra-Op Given 12/31/2023 3:04 PM EDT 50 mcg hEParin 100 UNIT/ML Lock Flush inj 300 Units 300 Units (3 mL), IV Push, PRN Other, PICC Line, Starting on Thu12/25/23 at 0749, Until 01/02/24 at 1631, For 1 dose, Prior to discharge, to each lumen hEParin 1000 UNIT/ML inj 1,100 Units 1,100 Units (rounded from 1,116 Units = 15 Units/kg 74.4 kg Adjusted weight), IV Push, PRN Other, If most recent Heparin Assay result is between 0.21 and 0.29 units/mL, Starting on 12/21/23 at 2146, Until Thu12/25/23 at 1530, Repeat Heparin Assay 6 hours after bolus is administered. Send message to pharmacy if dose needed. Given 12/24/2023 10:24 AM EDT 1,100 Units Given 2023 9:39 PM EDT 1,100 Units hEParin 1000 UNIT/ML inj 1,200 Units 1,200 Units (rounded from 1,231.5 Units = 15 Units/kg 82.1 kg Adjusted weight), IV Push, PRN Other, If most recent Heparin Assay result is between 0.21 and 0.29 units/mL, Starting on 12/26/23 at 0731, Until Thu01/01/24 at 2059, Repeat Heparin Assay 6 hours after bolus is administered. Send message to pharmacy if dose needed. Given 12/30/2023 9:04 AM EDT 1,200 Units Given 12/27/2023 3:08 AM EDT 1,200 Units hEParin 1000 UNIT/ML inj 2,200 Units 2,200 Units (rounded from 2,232 Units = 30 Units/kg 74.4 kg Adjusted weight), IV Push, PRN Other, If most recent Heparin Assay result is less than or equal to 0.2 units/mL, Starting on Thu12/21/23 at 2146, Until Thu12/25/23 at 1530, Repeat Heparin Assay 6 hours after bolus is administered. Send message to pharmacy if dose needed. Given 2023 2:23 PM EDT 2,200 Units Given 2023 7:26 AM EDT 2,200 Units Given 12/22/2023 9:41 AM EDT 2,200 Units hEParin 1000 UNIT/ML inj 2,500 Units 2,500 Units (rounded from 2,463 Units = 30 Units/kg 82.1 kg Adjusted weight), IV Push, PRN Other, If most recent Heparin Assay result is less than or equal to 0.2 units/mL, Starting on Thu12/26/23 at 0731, Until Thu01/01/24 at 2059, Repeat Heparin Assay 6 hours after bolus is administered. Send message to pharmacy if dose needed. Given 01/01/2024 9:59 AM EDT 2,500 Units Given 01/01/2024 2:59 AM EDT 2,500 Units Given 12/26/2023 10:04 PM EDT 2,500 Units hEParin 25,000 units in 250 mL (Xa-DVT/PE) infusion Intravenous, at 0-22.32 mL/hr, Start heparin as soon as baseline labs are drawn. Please select this medication from the infusion pump library! Concentration: 100 units/mL Expires 96 hours after spiking on (date) at (hour) , TITRATE, Starting on Thu12/21/23 at 2230, Until Thu12/25/23 at 1530 Restarted 12/25/2023 4:57 AM EDT 34 Units/kg/hr 25.29 mL/hr Restarted 12/25/2023 2:06 AM EDT 34 Units/kg/hr 25.29 mL/ hr Restarted 12/25/2023 12:21 AM EDT 34 Units/kg/hr 25.29 mL /hr hEParin 25,000 units in 250 mL (Xa-DVT/PE) infusion Intravenous, at 0-24.63 mL/hr, Start heparin as soon as baseline labs are drawn. Please select this medication from the infusion pump library! Concentration: 100 units/mL Expires 96 hours after spiking on (date) at (hour) , TITRATE, Starting on Thu12/26/23 at 0815, Until Thu01/01/24 at 2059 Nurse Change 01/01/2024 7:08 PM EDT 24 Units/kg/hr 19.7 mL/hr Rate Verify 01/01/2024 6:39 PM EDT 24 Units/kg/hr 19.7 mL/ hr Rate Verify 01/01/2024 4:58 PM EDT 24 Units/kg/hr 19.7 mL/ hr hydrOXYzine (Atarax) tab 10 mg 10 mg, Oral, ONCE, On Thu12/24/23 at 2245, For 1 dose Given 12/24/2023 10:33 PM EDT 10 mg hydrOXYzine (Atarax) tab 10 mg 10 mg, Oral, ONCE, On Thu12/26/23 at 2330, For 1 dose Given 12/26/2023 11:37 PM EDT 10 mg Iron Sucrose (Venofer) 200 mg in NSS 100 mL ivpb 200 mg, IV Piggyback, ONCE, 1 dose, On Thu12/31/23 at 1130, Administer over 60 Minutes New Bag 12/31/2023 11:19 AM EDT 200 mg 110 mL/hr Iron Sucrose (Venofer) 300 mg in NSS 250 mL ivpb 300 mg, IV Piggyback, ONCE, 1 dose, On Thu01/01/24 at 0815, Administer over 90 Minutes New Bag 01/01/2024 8:46 AM EDT 300 mg 183. 33 mL/hr Iron Sucrose (Venofer) 300 mg in NSS 250 mL ivpb 300 mg, IV Piggyback, ONCE, 1 dose, On Thu01/02/24 at 0900, Administer over 90 Minutes New Bag 01/02/2024 8:23 AM EDT 300 mg 183. 33 mL/hr isolyte-S pH 7.4 infusion Intravenous, at 100 mL/hr, Plasma-LYTE 148, isolyte-S, and isolyte-S pH 7.4 are considered equivalent - including for MAR barcode scanning., CONTINUOUS, Starting on Thu12/22/23 at 0030, Until Thu12/22/23 at 1658 Rate Verify 12/22/2023 7:44 AM EDT 100 mL/hr New Bag 12/22/2023 1:16 AM EDT 100 mL/hr isolyte-S pH 7.4 infusion Intravenous, at 75 mL/hr, Plasma-LYTE 148, isolyte-S, and isolyte-S pH 7.4 are considered equivalent - including for MAR barcode scanning., CONTINUOUS, Starting on Samantha 12/24/23 at 1215, Until Samantha 12/24/23 at 2214 Rate Verify 12/24/2023 7:37 PM EDT 75 mL/hr Rate Verify 12/24/2023 5:31 PM EDT 75 mL/hr New Bag 12/24/2023 2:24 PM EDT 75 mL/hr Lidocaine 1 % (PF) inj 1 mL 1 mL, Intradermal, PRN Other, Line Insertion, Starting on Thu12/25/23 at 0749, Until 01/02/24 at 1631, For 1 dose lidocaine-epinephrine 2 %-1:[id number] inj Subcutaneous, ONCE PRN INTRA PROCEDURE, Starting on Thu12/31/23 at 1520, Until Thu12/31/23 at 1520, Intra-Op Given 12/31/2023 3:20 PM EDT 10 mL Chest Right melatonin tab 3 mg 3 mg, Oral, HS PRN Insomnia, Starting on Thu12/28/23 at 2000, Until 01/02/24 at 1631 Given 12/28/2023 9:35 PM EDT 3 mg metoclopramide (Reglan) inj 10 mg 10 mg, IV Push, ONCE PRN Nausea, Vomiting, Starting on Thu12/25/23 at 1039, Until Thu12/25/23 at 1340, For 1 dose, Administer only post-op in PACU, PACU Given 12/25/2023 1:40 PM EDT 10 mg midazolam (Versed) 2 MG/2ML inj 1 mg 1 mg, IV Push, Q2 MIN PRN sedation for block placement , Starting on Thu12/25/23 at 0933, Until Thu12/25/23 at 1451, For 2 doses, Preop Anesthesia Block, Pre-Op Given 12/25/2023 9:34 AM EDT 1 mg midazolam (Versed) 2 MG/2ML inj ONCE PRN INTRA PROCEDURE, Starting on Thu12/31/23 at 1451, Until Samantha 12/31/23 at 1504, Intra-Op Given 12/31/2023 3:04 PM EDT 1 mg Given 12/31/2023 2:51 PM EDT 1 mg NSS infusion Intravenous, at 75 mL/hr, CONTINUOUS, Starting on 12/27/23 at 1030, Until 12/28/23 at 1734 Restarted 12/28/2023 3:36 PM EDT 75 mL/hr New Bag 12/28/2023 3:27 PM EDT 75 mL/hr Rate Change 12/28/2023 3:27 PM EDT 75 mL/hr NSS infusion Intravenous, at 100 mL/hr, CONTINUOUS, Starting on Thu12/28/23 at 1815, Until Thu12/29/23 at 0915 Restarted 12/29/2023 7:20 AM EDT 100 mL/hr New Bag 12/29/2023 3:29 AM EDT 100 mL/hr Restarted 12/28/2023 10:59 PM EDT 100 mL/hr NSS infusion Intravenous, at 125 mL/hr, CONTINUOUS, Starting on Thu12/29/23 at 1000, Until Thu12/30/23 at 1406 Rate Verify 12/30/2023 6:58 AM EDT 125 mL/hr New Bag 12/30/2023 6:18 AM EDT 125 mL/hr Rate Verify 12/30/2023 4:00 AM EDT 125 mL/hr OLANZapine (zyPREXA IM) inj 2.5 mg 2.5 mg, Intramuscular, ONCE, On 12/26/23 at 0000, For 1 dose, Upon reconstitution with 2.1 mL of Sterile Water for Injection, each mL will contain 5 mg of olanzapine. Expires 1 hour after mixing. Given 12/26/2023 12:02 AM EDT 2.5 mg Arm Left Upper oxyCODONE (Oxy IR) tab 5 mg 5 mg, Oral, Q4H PRN Pain, Severe, Pain, Moderate, Starting on 12/21/23 at 2319, Until 01/02/24 at 1631 Given 12/25/2023 9:16 PM EDT 5 mg Given 12/24/2023 11:06 PM EDT 5 mg Given 2023 5:44 PM EDT 5 mg oxygen GAS Inhalation, OXYGEN, First dose on Thu12/25/23 at 1015, Until Discontinued, Device/Managed by: Low Flow Device, Goal SPO2 (%): 91-95, Starting Device: Nasal Cannula, Initial Flow Rate (LPM): 2, Lowest Support: Nasal Cannula: Flow 0-6 LPM. Titrate up/down by 1 LPM., Higher Support: Non-Rebreather (NRB) Mask: Minimum of 10 LPM. Titrate to maintain bag inflation., Titration Interval: Q2 minutes and as needed., Notify Provider: For sudden DECREASE in resting SPO2 to less than 85% and when escalating delivery device., Wean patient off Oxygen when the oxygen saturation is greater than or equal to 93% Oxygen On 12/29/2023 12:00 AM EDT Oxygen On 12/27/2023 12:00 AM EDT Oxygen On 12/26/2023 4:00 PM EDT Piperacillin-Tazobactam (Zosyn) 4.5 g in 100 mL NSS ivpb (FOUR hour infusion) IV Piggyback, 4.5 g, Q8HNOW, 15 doses, First dose (after last reorder) on Thu12/21/23 at 2330, Last dose on Thu12/26/23 at 1530, Administer over 4 Hours, at 27.5 mL/hr New Bag 12/22/2023 3:56 PM EDT 4.5 g 27.5 mL/hr Rate Verify 12/22/2023 7:44 AM EDT 1.125 g/hr 27.5 mL/hr New Bag 12/22/2023 6:33 AM EDT 4.5 g 27.5 mL/hr potassium chloride ER tab 20 mEq 20 mEq, Oral, ONCE, On Thu12/25/23 at 1630, For 1 dose, This med should NOT be Crushed or Chewed Given 12/25/2023 5:59 PM EDT 20 mEq potassium chloride ER tab 20 mEq 20 mEq, Oral, ONCE, On Thu12/29/23 at 1000, For 1 dose, This med should NOT be Crushed or Chewed Given 12/29/2023 10:19 AM EDT 20 mEq QUEtiapine (SEROquel) tab 25 mg 25 mg, Oral, ONCE, On Thu12/25/23 at 2200, For 1 dose Given 12/25/2023 10:01 PM EDT 25 mg sodium chloride 0.9 % flush/inj 10 mL 10 mL, IV Push, Q8H, First dose on Thu12/25/23 at 1400, Until Discontinued, To each lumen if no medications are ordered. And before and after drawing labs from PICC catheter. Given 01/02/2024 5:05 AM EDT 10 mL Given 01/01/2024 9:11 PM EDT 10 mL Given 01/01/2024 2:23 PM EDT 10 mL vancomycin (Vancocin) 1,250 mg in NSS 250 mL ivpb 1,250 mg, IV Piggyback, ONCE, 1 dose, On Thu12/22/23 at 1415 New Bag 12/22/2023 3:43 PM EDT 1,250 mg 183.33 mL/hr vancomycin (Vancocin) 1,250 mg in NSS 250 mL ivpb 1,250 mg, IV Piggyback, ONCE, 1 dose, On Thu12/23/23 at 1400 New Bag 2023 1:26 PM EDT 1,250 mg 183.33 mL/hr vancomycin (Vancocin) 1,250 mg in NSS 250 mL ivpb 1,250 mg, IV Piggyback, Q24H, First dose on Thu12/24/23 at 1400, Until Discontinued New Bag 12/24/2023 2:37 PM EDT 1,250 mg 183.33 mL/hr Vancomycin (Vancocin) 1000 mg in NSS 250 mL ivpb LOCKED DOSE 1,000 mg, IV Piggyback, Q24H, First dose on Thu12/25/23 at 1730, Until Discontinued Restarted 12/26/2023 4:50 PM EDT 1,000 mg/hr 275 mL/hr New Bag 12/26/2023 4:01 PM EDT 1,000 mg 275 mL/hr Rate Verify 12/25/2023 7:24 PM EDT 1,000 mg/hr 275 mL/hr documented in this encounter Active and Recently Administered Medications Times are shown in EDT. Scheduled Medication Order 12/31/2023 01/01/2024 01/02/2024 Apixaban (Eliquis) tab 5 mg 5 mg, Oral, BID (.AM/PM), First dose on 01/02/24 at 0900, Last dose on Thu01/08/24 at 2100, For 14 doses 0814 (Given - Provider: Sharee Mariscal LPN) chlorhexidine gluconate cloth 2 % pad External, [id number], First dose on Thu12/25/23 at 1000, Until Discontinued, Applied to appropriate patients per authorization manager's recommendations following daily care. May use more than one Pad (cloth/wipe) as needed to complete care. 0902 (Given - Provider: Efra Jacques RN) 1000 (Given - Provider: Nahomy Dumont RN) 0815 (Given - Provider: Sharee Mariscal LPN) DAPTOmycin (Cubicin) inj 650 mg IV Push, Administer over 2 Minutes, Q48H, 7 doses, First dose on Thu12/28/23 at 1400, Last dose on Thu01/09/24 at 1400 1419 (Given - Provider: Nahomy Dumont RN) Iron Sucrose (Venofer) 200 mg in NSS 100 mL ivpb (COMPLETED) 200 mg, IV Piggyback, ONCE, 1 dose, On Samantha 12/31/23 at 1130, Administer over 60 Minutes 1119 (New Bag - Provider: Efra Jacques RN) Iron Sucrose (Venofer) 300 mg in NSS 250 mL ivpb (COMPLETED) 300 mg, IV Piggyback, ONCE, 1 dose, On Thu01/01/24 at 0815, Administer over 90 Minutes 0846 (New Bag - Provider: Nahomy Dumont RN)1016 (Stopped - Provider: Sia Steele RN) Iron Sucrose (Venofer) 300 mg in NSS 250 mL ivpb (COMPLETED) 300 mg, IV Piggyback, ONCE, 1 dose, On 01/02/24 at 0900, Administer over 90 Minutes 0823 (New Bag - Provider: Sharee Mariscal LPN) oxygen GAS Inhalation, OXYGEN, First dose on Thu12/25/23 at 1015, Until Discontinued, Device/Managed by: Low Flow Device, Goal SPO2 (%): 91-95, Starting Device: Nasal Cannula, Initial Flow Rate (LPM): 2, Lowest Support: Nasal Cannula: Flow 0-6 LPM. Titrate up/down by 1 LPM., Higher Support: Non-Rebreather (NRB) Mask: Minimum of 10 LPM. Titrate to maintain bag inflation., Titration Interval: Q2 minutes and as needed., Notify Provider: For sudden DECREASE in resting SPO2 to less than 85% and when escalating delivery device., Wean patient off Oxygen when the oxygen saturation is greater than or equal to 93% 0000 (Oxygen Off - Provider: Roni Ingram RN)0800 (Oxygen Off - Provider: Efra Jacques RN)1600 (Oxygen Off - Provider: Efra Jacques RN) 0000 (Oxygen Off - Provider: Roni Ingram RN)0848 (Oxygen Off - Provider: Nahomy Dumont RN)1523 (Oxygen Off - Provider: Sia Steele RN) 0000 (Oxygen Off - Provider: Merary Allen RN)0800 (Oxygen Off - Provider: Sharee Mariscal LPN) sodium chloride 0.9 % flush/inj 10 mL 10 mL, IV Push, Q8H, First dose on Thu12/25/23 at 1400, Until Discontinued, To each lumen if no medications are ordered. And before and after drawing labs from PICC catheter. 0600 (Given - Provider: Roni Ingram RN)1400 (Given - Provider: Efra Jacques RN)2200 (Given - Provider: Roni Ingram RN) 0800 (Given - Provider: Nahomy Dumont, CHRISTINA)1423 (Given - Provider: Nahomy Dumont, CHRISTINA)2111 (Given - Provider: Merary Allen, CHRISTINA) 0505 (Given - Provider: Merary Allen, CHRISTINA) Continuous Medication Order 12/31/2023 01/01/2024 01/02/2024 hEParin 25,000 units in 250 mL (Xa-DVT/PE) infusion (CANCELED) Intravenous, at 0-24.63 mL/hr, Start heparin as soon as baseline labs are drawn. Please select this medication from the infusion pump library! Concentration: 100 units/mL Expires 96 hours after spiking on (date) at (hour) , TITRATE, Starting on Thu12/26/23 at 0815, Until Thu01/01/24 at 2059 0707 (Rate Verify - Provider: Roni Ingram RN - Comment: [Action automatically changed])0718 (Rate Verify - Provider: Roni Ingram RN)0805 (New Bag - Provider: Efra Jacques, CHRISTINA)0902 (Rate Verify - Provider: Efra Jacques, RN)1007 (Stopped - Provider: Efra Jacques RN)1920 (Restarted - Provider: Roni Ingram RN) 0259 (Rate Change - Provider: Roni Ingram RN)0724 (Nurse Change - Provider: Nahomy Dumont RN)0739 (Rate Verify - Provider: Roni Ingram RN)0847 (New Bag - Provider: Nahomy Dumont RN)0959 (Rate Change - Provider: Nahomy Dumont RN)1521 (Rate Verify - Provider: Nahomy Dumont RN)1522 (Nurse Change - Provider: Sia Steele, CHRISTINA)1658 (Rate Verify - Provider: Sia Steele RN)1839 (Rate Verify - Provider: Sia Steele, RN)1908 (Nurse Change - Provider: Merary Allen, RN)205 (Stopped - Provider: Merary Allen, RN) PRN Medication Order 12/31/2023 01/01/2024 01/02/2024 Acetaminophen (Tylenol) tab 650 mg 650 mg, Oral, Q4H PRN Pain, Mild, Fever >38C(100.5F), Starting on Thu12/23/23 at 0317, Until 01/02/24 at 1631, Maximum of 4 grams (4000 mg) per day. Alteplase (Cathflo Activase) inj 2 mg 2 mg, IV Push, PRN line occlusion , Starting on Thu12/25/23 at 0749, Until 01/02/24 at 1631, For 15 doses, For use in Catheter occlusion to be administered by IV Therapy nurses only at [facility]. At [facility]: IV Therapy PICC RN, Nursing Judge'S Clerk, MSICU RN's and Emergency Department RN's *Obtain Alteplase (CathFlo Activase) *Reconstitute Alteplase (CathFlo Activase) 2mg in 2.2ml sterile water *Instill Alteplase (CathFlo Activase) into occluded lumen(s) *After 30 minutes dwell time in catheter, assess catheter patency by attempting to aspirate blood. If catheter is patent withdraw 4-5 ml of blood to remove Alteplase (CathFlo Activase) and residual clot. Flush lumen with 10ml 0.9% normal saline *If catheter function is not restored allow for further dwell up to 120 minutes. *If catheter function is not restored, a second dose of Alteplase (CathFlo Activase) may be administered. *if catheter is stll not restored call a physician buffered lidocaine 1 % inj (COMPLETED) Intradermal, ONCE PRN INTRA PROCEDURE, Starting on Samantha 12/31/23 at 1512, Until Samantha 12/31/23 at 1512, Intra-Op 1512 (Given - Provider: Keila Islas PA-C) fentaNYL (PF) inj (COMPLETED) ONCE PRN INTRA PROCEDURE, Starting on Samantha 12/31/23 at 1504, Until Samantha 12/31/23 at 1504, Intra-Op 1504 (Given - Provider: Nya Cortes RN) hEParin 100 UNIT/ML Lock Flush inj 300 Units 300 Units (3 mL), IV Push, PRN Other, PICC Line, Starting on Thu12/25/23 at 0749, Until 01/02/24 at 1631, For 1 dose, Prior to discharge, to each lumen hEParin 1000 UNIT/ML inj 2,500 Units (CANCELED) 2,500 Units (rounded from 2,463 Units = 30 Units/kg 82.1 kg Adjusted weight), IV Push, PRN Other, If most recent Heparin Assay result is less than or equal to 0.2 units/mL, Starting on 12/26/23 at 0731, Until Thu01/01/24 at 2059, Repeat Heparin Assay 6 hours after bolus is administered. Send message to pharmacy if dose needed. 0259 (Given - Provider: Roni Ingram RN)2216 (Given - Provider: Nahomy Dumont RN) Lidocaine 1 % (PF) inj 1 mL 1 mL, Intradermal, PRN Other, Line Insertion, Starting on Thu12/25/23 at 0749, Until 01/02/24 at 1631, For 1 dose lidocaine-epinephrine 2 %-1:[id number] inj (COMPLETED) Subcutaneous, ONCE PRN INTRA PROCEDURE, Starting on Samantha 12/31/23 at 1520, Until Samantha 12/31/23 at 1520, Intra-Op 1520 (Given - Provider: Keila Islas PA-C) melatonin tab 3 mg 3 mg, Oral, HS PRN Insomnia, Starting on 12/28/23 at 2000, Until 01/02/24 at 1631 midazolam (Versed) 2 MG/2ML inj (COMPLETED) ONCE PRN INTRA PROCEDURE, Starting on Samantha 12/31/23 at 1451, Until Samantha 12/31/23 at 1504, Intra-Op 1451 (Given - Provider: Nya Cortes, CHRISTINA)1504 (Given - Provider: Nya Cortes RN) oxyCODONE (Oxy IR) tab 5 mg 5 mg, Oral, Q4H PRN Pain, Severe, Pain, Moderate, Starting on 12/21/23 at 2319, Until 01/02/24 at 1631 sodium chloride 0.9 % flush/inj 3 mL 3 mL, IV Push, PRN Other, Line Patency, Starting on 12/21/23 at 2231, Until 01/02/24 at 1631, Do not flush if lock, PICC, or central line not in place, IV infusing or unable to flush documented in this encounter Additional Health Concerns Infection Onset Date Last Indicated Resolved Time 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 Question Answer Comments Discussion of Advance Directives occurred with: Patient Does the patient have a Living Will? No Does the patient have Health Care Power of Backend Java Developer? No Care Teams Audio Video Mechanic Relationship Specialty Start Date End Date Raul Drummond MD [address] [place] [address] [place] [address] PCP - General Family Medicine 10/30/23 documented as of this encounter
--- OUTSIDE RECORDS SUMMARY | 2024-01-05 14:52 | External Medical Summary ---
Author Name Unknown Address Unknown Organization K01:[facility] [place] [address] [place] [address] Laboratory Report Ordering Provider Test Date Status MAHSA HIGH 01/02/2024 06:42:00 Final Observation Date Value Abnormality Reference (Units ) Status WBC, Total 01/02/2024 06:42:00 6.38 4.00-10.80 (K/uL) Final RBC 01/02/2024 06:42:00 2.64 4.50-5.25 (M/uL) Final Hemoglobin 01/02/2024 06:42:00 7.2 Below low normal 14.0-16.8 (g/dL) Final HCT 01/02/2024 06:42:00 22.9 Below low normal 40.0-48.4 (%) Final MCV 01/02/2024 06:42:00 86.7 82.0-99.5 (fL) Final MCH 01/02/2024 06:42:00 27.3 27.0-34.0 (pg) Final MCHC 01/02/2024 06:42:00 31.4 32.0-36.0 (g/dL) Final RDW 01/02/2024 06:42:00 19.5 11.5-15.5 (%) Final Platelets 01/02/2024 06:42:00 426 Above high normal 140-400 (K/uL) Final MPV 01/02/2024 06:42:00 9.6 6.6-11.1 (fL) Final Nucleated erythrocytes/100 leukocytes [Ratio] in Blood by Automated count 01/02/2024 06:42:00 0 <=0 (/100 WBCs) Final Performing Location [facility]ATORY [facility] [place] - [address] [place] [address]
--- OUTSIDE RECORDS SUMMARY | 2024-01-05 14:52 | External Medical Summary ---
Author Name Unknown Address Unknown Organization K01:[facility] [address] [place] [address] Laboratory Report Ordering Provider Test Date Status CHRISTIANO PÉREZ 01/02/2024 06:42:00 Final Observation Date Value Abnormality Reference (Units ) Status CRP, low-sensitivity 01/02/2024 06:42:00 51 Above high normal <=5 (mg/L) Final Performing Location [facility]AT[facility] - [address] [place] [address]
--- OUTSIDE RECORDS SUMMARY | 2024-01-05 14:52 | External Medical Summary ---
Author Name Unknown Address Unknown Organization K01:[facility] [place] [address] [place] [address] Laboratory Report Ordering Provider Test Date Status MAHSA HIGH 01/02/2024 06:42:00 Final Warfarin Therapy
INR: 2 .0-3.0 conventional anticoagulation
INR: 2.5- 3.5 high intensity anticoagulation Observation Date Value Abnormality Reference (Units ) Status PT 01/02/2024 06:42:00 14.6 11.6-15.2 (seconds) Final INR 01/02/2024 06:42:00 1.1 0.8-1.2 Final Performing Location [facility] [place] - [address] [place] [address]
--- OUTSIDE RECORDS SUMMARY | 2024-01-05 14:52 | External Medical Summary ---
Author Name Unknown Address Unknown Organization K01:LABORATORY [facility] - [address] [place] [address] Laboratory Report Ordering Provider Test Date Status RAFA ALEJANDRE 01/02/2024 06:42:00 Final Observation Date Value Abnormality Reference (Units ) Status BUN 01/02/2024 06:42:00 25 Above high normal 6-20 (mg/dL) Final Creatinine 01/02/2024 06:42:00 3.2 Above high normal 0.6-1.2 (mg/dL) Final Glomerular filtration rate/1.73 sq M.predicted [Volume Rate/Area] in Serum, Plasma or Blood by Creatinine-based formula (CKD-EPI) 01/02/2024 06:42:00 21 Below low normal >=60 (mL/min) Final eGFR is calculated based on the CKD-EPI 2020 equation Sodium 01/02/2024 06:42:00 138 135-146 (m mol/L) Final Potassium 01/02/2024 06:42:00 4.0 3.5-5.1 (m mol/L) Final Cl 01/02/2024 06:42:00 104 98-107 (mm ol/L) Final CO2 01/02/2024 06:42:00 24 22-32 (mmo l/L) Final Anion gap 01/02/2024 06:42:00 10 7-15 (mmol /L) Final Glucose 01/02/2024 06:42:00 114 70-120 (mg /dL) Final Calcium 01/02/2024 06:42:00 8.4 8.4-10.2 ( mg/dL) Final Albumin 01/02/2024 06:42:00 2.6 Below low normal 3.8 -5.0 (g/dL) Final Phosphate 01/02/2024 06:42:00 3.9 2.5-4.8 (m g/dL) Final Performing Location LABORATORY C - [address] [place] [address]
--- OUTSIDE RECORDS SUMMARY | 2024-01-05 14:52 | External Medical Summary ---
Author Name Unknown Address Unknown Organization K01:[place] [place] [address] [place] [address] Laboratory Report Ordering Provider Test Date Status JODY AGUIRRE 01/01/2024 21:54:00 Final Observation Date Value Abnormality Reference (Units ) Status Heparin, unfractionated level 01/01/2024 21:54:00 <0.10 <0.10 (IU/mL) Final Unfractionated therapeutic r anges for Anti Xa activity:
For Cardiac/Neurologic treatment: 0.3 to 0.6 IU/mL.
For treatment of DVT or Pulmonary Embolism: 0.3 to 0.7 IU/mL. Performing Location [facility] [place] [address] [place] [address]
--- OUTSIDE RECORDS SUMMARY | 2024-01-05 14:52 | External Medical Summary ---
Author Name Unknown Address Unknown Organization K01:[facility] [place] [facility] [address] [place] [address] Laboratory Report Ordering Provider Test Date Status JODY AGUIRRE 01/01/2024 08:41:00 Final Observation Date Value Abnormality Reference (Units ) Status Heparin, unfractionated level 01/01/2024 08:41:00 0.14 Above high normal <0.10 (IU/mL) Final Unfractionated therapeutic r anges for Anti Xa activity:
For Cardiac/Neurologic treatment: 0.3 to 0.6 IU/mL.
For treatment of DVT or Pulmonary Embolism: 0.3 to 0.7 IU/mL. Performing Location LABOR[facility]ORY [facility] [place] - [address] [place] [address]
--- OUTSIDE RECORDS SUMMARY | 2024-01-05 14:52 | External Medical Summary ---
Author Name Unknown Address Unknown Organization K01:[place] [place] [facility] [address] [place] [address] Laboratory Report Ordering Provider Test Date Status JODY AGUIRRE 01/01/2024 16:11:00 Final Observation Date Value Abnormality Reference (Units ) Status Heparin, unfractionated level 01/01/2024 16:11:00 0.35 Above high normal <0.10 (IU/mL) Final Unfractionated therapeutic r anges for Anti Xa activity:
For Cardiac/Neurologic treatment: 0.3 to 0.6 IU/mL.
For treatment of DVT or Pulmonary Embolism: 0.3 to 0.7 IU/mL. Performing Location [facility] [place] [address] [place] [address]
--- OUTSIDE RECORDS SUMMARY | 2024-01-05 14:52 | External Medical Summary ---
Author Name Unknown Address Unknown Organization K01:LABORATORY [facility] [place] - [address] [place] [address] Laboratory Report Ordering Provider Test Date Status MAHSA HIGH 01/01/2024 06:27:00 Final Warfarin Therapy
INR: 2 .0-3.0 conventional anticoagulation
INR: 2.5- 3.5 high intensity anticoagulation Observation Date Value Abnormality Reference (Units ) Status PT 01/01/2024 06:27:00 14.4 11.6-15.2 (seconds) Final INR 01/01/2024 06:27:00 1.1 0.8-1.2 Final Performing Location LABORATORY [facility] [place] - [address] [place] [address]
--- OUTSIDE RECORDS SUMMARY | 2024-01-05 14:52 | External Medical Summary ---
Author Name Unknown Address Unknown Organization K01:[place] [facility] [place] [address] [place] [address] Laboratory Report Ordering Provider Test Date Status JODY AGUIRRE 01/01/2024 00:52:00 Final Observation Date Value Abnormality Reference (Units ) Status Heparin, unfractionated level 01/01/2024 00:52:00 >1.10 Above upper panic limits <0.10 (IU/mL) Final Results rechecked. Performing Location [place] [place] [address] [place] [address]
--- OUTSIDE RECORDS SUMMARY | 2024-01-05 14:52 | External Medical Summary ---
Author Name Unknown Address Unknown Organization K01:LABORATORY [facility] [place] - [address] [place] [address] Laboratory Report Ordering Provider Test Date Status JODY AGUIRRE 12/31/2023 17:53:00 Final Observation Date Value Abnormality Reference (Units ) Status Heparin, unfractionated level 12/31/2023 17:53:00 <0.10 <0.10 (IU/mL) Final Unfractionated therapeutic r anges for Anti Xa activity:
For Cardiac/Neurologic treatment: 0.3 to 0.6 IU/mL.
For treatment of DVT or Pulmonary Embolism: 0.3 to 0.7 IU/mL. Performing Location LABORATORY [facility] [place] - [address] [place] [address]
--- OUTSIDE RECORDS SUMMARY | 2024-01-05 14:52 | External Medical Summary ---
Author Name Unknown Address Unknown Organization K01:LABORATORY [facility] - [address] [place] [address] Laboratory Report Ordering Provider Test Date Status JODY AGUIRRE 01/01/2024 19:51:00 Final Observation Date Value Abnormality Reference (Units ) Status Hemoglobin 01/01/2024 19:51:00 7.2 Below low normal 14 .0-16.8 (g/dL) Final Performing Location [facility] - [address] [place] [address]
--- OUTSIDE RECORDS SUMMARY | 2024-01-05 14:52 | External Medical Summary ---
Author Name Unknown Address Unknown Organization K01:[place] [place] [address] [place] [address] Laboratory Report Ordering Provider Test Date Status RAFA ALEJANDRE 01/01/2024 06:28:00 Final Observation Date Value Abnormality Reference (Units ) Status BUN 01/01/2024 06:28:00 25 Above high normal 6-20 (mg/dL) Final Creatinine 01/01/2024 06:28:00 3.1 Above high normal 0.6-1.2 (mg/dL) Final Glomerular filtration rate/1.73 sq M.predicted [Volume Rate/Area] in Serum, Plasma or Blood by Creatinine-based formula (CKD-EPI) 01/01/2024 06:28:00 22 Below low normal >=60 (mL/min) Final eGFR is calculated based on the CKD-EPI 2020 equation Sodium 01/01/2024 06:28:00 139 135-146 (m mol/L) Final Potassium 01/01/2024 06:28:00 3.9 3.5-5.1 (m mol/L) Final Cl 01/01/2024 06:28:00 105 98-107 (mm ol/L) Final CO2 01/01/2024 06:28:00 24 22-32 (mmo l/L) Final Anion gap 01/01/2024 06:28:00 10 7-15 (mmol /L) Final Glucose 01/01/2024 06:28:00 116 70-120 (mg /dL) Final Calcium 01/01/2024 06:28:00 8.4 8.4-10.2 ( mg/dL) Final Albumin 01/01/2024 06:28:00 2.7 Below low normal 3.8 -5.0 (g/dL) Final Phosphate 01/01/2024 06:28:00 4.0 2.5-4.8 (m g/dL) Final Performing Location LABORATORY [facility] - [address] [place] [address]
--- OUTSIDE RECORDS SUMMARY | 2024-01-05 14:52 | External Medical Summary ---
Author Name Unknown Address Unknown Organization K01:LABORATORY [facility] - [address] [place] [address] Laboratory Report Ordering Provider Test Date Status CHRISTIANO PÉREZ 01/01/2024 06:28:00 Final Observation Date Value Abnormality Reference (Units ) Status CRP, low-sensitivity 01/01/2024 06:28:00 51 Above high normal <=5 (mg/L) Final Performing Location LAB[facility] - [address] [place] [address]
--- OUTSIDE RECORDS SUMMARY | 2024-01-05 14:52 | External Medical Summary ---
Author Name Unknown Address Unknown Organization K01:LABORATORY [place] - [facility] [address] [place] [address] Laboratory Report Ordering Provider Test Date Status NAKUL ESQUIVEL 01/01/2024 02:14:00 Final Get Heparin, unfractionated (Xa) level 6 hours after start of infusion and 6 hours after each dose adjustment Observation Date Value Abnormality Reference (Units ) Status Heparin, unfractionated level 01/01/2024 02:14:00 <0.10 <0.10 (IU/mL) Final Unfractionated therapeutic r anges for Anti Xa activity:
For Cardiac/Neurologic treatment: 0.3 to 0.6 IU/mL.
For treatment of DVT or Pulmonary Embolism: 0.3 to 0.7 IU/mL. Performing Location LABORATORY [place] - [facility] [address] [place] [address]
--- OUTSIDE RECORDS SUMMARY | 2024-01-05 14:52 | External Medical Summary ---
Author Name Unknown Address Unknown Organization K01:LABORATORY [facility] [place] - [address] [place] [address] Laboratory Report Ordering Provider Test Date Status JODY AGUIRRE 01/01/2024 19:51:00 Final Observation Date Value Abnormality Reference (Units ) Status HCT 01/01/2024 19:51:00 23.2 Below low normal 40. 0-48.4 (%) Final Performing Location LAB[facility] - [address] [place] [address]
--- OUTSIDE RECORDS SUMMARY | 2024-01-05 14:53 | External Medical Summary ---
Author Name Unknown Address Unknown Organization K01:LABORATORY [facility] [place] - [address] [place] [address] Laboratory Report Ordering Provider Test Date Status MAHSA HIGH 12/28/2023 07:08:00 Final Observation Date Value Abnormality Reference (Units ) Status WBC, Total 12/28/2023 07:08:00 12.01 Above high normal 4.00-10.80 (K/uL) Final RBC 12/28/2023 07:08:00 2.94 4.50-5.25 (M/uL) Final Hemoglobin 12/28/2023 07:08:00 7.8 Below low normal 14.0-16.8 (g/dL) Final HCT 12/28/2023 07:08:00 24.5 Below low normal 40.0-48.4 (%) Final MCV 12/28/2023 07:08:00 83.3 82.0-99.5 (fL) Final MCH 12/28/2023 07:08:00 26.5 27.0-34.0 (pg) Final MCHC 12/28/2023 07:08:00 31.8 32.0-36.0 (g/dL) Final RDW 12/28/2023 07:08:00 18.3 11.5-15.5 (%) Final Platelets 12/28/2023 07:08:00 762 Above high normal 140-400 (K/uL) Final MPV 12/28/2023 07:08:00 8.6 6.6-11.1 (fL) Final Nucleated erythrocytes/100 leukocytes [Ratio] in Blood by Automated count 12/28/2023 07:08:00 0 <=0 (/100 WBCs) Final Performing Location LABORATORY [facility] [place] - [address] [place] [address]
--- OUTSIDE RECORDS SUMMARY | 2024-01-05 14:53 | External Medical Summary ---
Author Name Unknown Address Unknown Organization K01:LABORATORY [facility] [place] - [address] [place] [address] Laboratory Report Ordering Provider Test Date Status RAFA ALEJANDRE 12/31/2023 06:38:00 Final Observation Date Value Abnormality Reference (Units ) Status BUN 12/31/2023 06:38:00 26 Above high normal 6-20 (mg/dL) Final Creatinine 12/31/2023 06:38:00 3.2 Above high normal 0.6-1.2 (mg/dL) Final Glomerular filtration rate/1.73 sq M.predicted [Volume Rate/Area] in Serum, Plasma or Blood by Creatinine-based formula (CKD-EPI) 12/31/2023 06:38:00 22 Below low normal >=60 (mL/min) Final eGFR is calculated based on the CKD-EPI 2020 equation Sodium 12/31/2023 06:38:00 140 135-146 (m mol/L) Final Potassium 12/31/2023 06:38:00 4.0 3.5-5.1 (m mol/L) Final Cl 12/31/2023 06:38:00 106 98-107 (mm ol/L) Final CO2 12/31/2023 06:38:00 23 22-32 (mmo l/L) Final Anion gap 12/31/2023 06:38:00 11 7-15 (mmol /L) Final Glucose 12/31/2023 06:38:00 120 70-120 (mg /dL) Final Calcium 12/31/2023 06:38:00 8.2 Below low normal 8.4 -10.2 (mg/dL) Final Albumin 12/31/2023 06:38:00 2.8 Below low normal 3.8 -5.0 (g/dL) Final Phosphate 12/31/2023 06:38:00 4.1 2.5-4.8 (m g/dL) Final Performing Location LABORATORY C - [address] [place] [address]
--- OUTSIDE RECORDS SUMMARY | 2024-01-05 14:53 | External Medical Summary ---
Author Name Unknown Address Unknown Organization K01:[place] [place] [facility] [address] [place] [address] Laboratory Report Ordering Provider Test Date Status NAKUL ESQUIVEL 12/27/2023 02:21:00 Final Get Heparin, unfractionated (Xa) level 6 hours after start of infusion and 6 hours after each dose adjustment Observation Date Value Abnormality Reference (Units ) Status Heparin, unfractionated level 12/27/2023 02:21:00 0.26 Above high normal <0.10 (IU/mL) Final Unfractionated therapeutic r anges for Anti Xa activity:
For Cardiac/Neurologic treatment: 0.3 to 0.6 IU/mL.
For treatment of DVT or Pulmonary Embolism: 0.3 to 0.7 IU/mL. Performing Location LAB[facility] [place] - [address] [place] [address]
--- OUTSIDE RECORDS SUMMARY | 2024-01-05 14:53 | External Medical Summary ---
Author Name Unknown Address Unknown Organization K01:LABORATORY [facility] – [place] - [facility] [address] [facility] [address] Laboratory Report Ordering Provider Test Date Status MAHSA HIGH 12/30/2023 06:17:00 Final Observation Date Value Abnormality Reference (Units ) Status WBC, Total 12/30/2023 06:17:00 7.62 4.00-10.80 (K/uL) Final RBC 12/30/2023 06:17:00 2.45 4.50-5.25 (M/uL) Final Hemoglobin 12/30/2023 06:17:00 6.4 Below low normal 14.0-16.8 (g/dL) Final HCT 12/30/2023 06:17:00 21.4 Below low normal 40.0-48.4 (%) Final MCV 12/30/2023 06:17:00 87.3 82.0-99.5 (fL) Final MCH 12/30/2023 06:17:00 26.1 27.0-34.0 (pg) Final MCHC 12/30/2023 06:17:00 29.9 32.0-36.0 (g/dL) Final RDW 12/30/2023 06:17:00 18.9 11.5-15.5 (%) Final Platelets 12/30/2023 06:17:00 618 Above high normal 140-400 (K/uL) Final MPV 12/30/2023 06:17:00 9.2 6.6-11.1 (fL) Final Nucleated erythrocytes/100 leukocytes [Ratio] in Blood by Automated count 12/30/2023 06:17:00 0 <=0 (/100 WBCs) Final Performing Location LABORATORY [facility] [place] - [address] [place] [address]
--- OUTSIDE RECORDS SUMMARY | 2024-01-05 14:53 | External Medical Summary ---
Author Name Unknown Address Unknown Organization K01:[facility] [place] [facility] [place] [address] [place] [address] Laboratory Report Ordering Provider Test Date Status ADIN LINO 12/29/2023 10:33:00 Final Observation Date Value Abnormality Reference (Units ) Status ABO 12/29/2023 10:33:00 A Final RH 12/29/2023 10:33:00 Positive Final RED BLOOD CELL ANTIBODY SCREEN 12/29/2023 10:33:00 Negative Final SPECIMEN EXPIRATION DATE 12/29/2023 10:33:00 01/01/2024 23:59 Final Performing Location [facility] - [address] [place] [address]
--- OUTSIDE RECORDS SUMMARY | 2024-01-05 14:53 | External Medical Summary ---
Author Name Unknown Address Unknown Organization K01:[place] [facility] [place] [address] [place] [address] Laboratory Report Ordering Provider Test Date Status MAHSA HIGH 12/31/2023 06:38:00 Final Warfarin Therapy
INR: 2 .0-3.0 conventional anticoagulation
INR: 2.5- 3.5 high intensity anticoagulation Observation Date Value Abnormality Reference (Units ) Status PT 12/31/2023 06:38:00 14.8 11.6-15.2 (seconds) Final INR 12/31/2023 06:38:00 1.2 0.8-1.2 Final Performing Location [place] [place] [address] [place] [address]
--- OUTSIDE RECORDS SUMMARY | 2024-01-05 14:53 | External Medical Summary ---
Author Name Unknown Address Unknown Organization K01:LABORATORY [facility] - [address] [place] [address] Laboratory Report Ordering Provider Test Date Status JODY AGUIRRE 12/30/2023 13:41:00 Final Observation Date Value Abnormality Reference (Units ) Status Hemoglobin 12/30/2023 13:41:00 7.3 Below low normal 14 .0-16.8 (g/dL) Final Performing Location [facility] - [address] [place] [address]
--- OUTSIDE RECORDS SUMMARY | 2024-01-05 14:53 | External Medical Summary ---
Author Name Unknown Address Unknown Organization K01:LABORATORY [facility] [place] - [facility] [address] [place] [address] Laboratory Report Ordering Provider Test Date Status MAHSA HIGH 12/29/2023 07:20:00 Final Observation Date Value Abnormality Reference (Units ) Status WBC, Total 12/29/2023 07:20:00 9.30 4.00-10.80 (K/uL) Final RBC 12/29/2023 07:20:00 2.62 4.50-5.25 (M/uL) Final Hemoglobin 12/29/2023 07:20:00 7.0 Below low normal 14.0-16.8 (g/dL) Final HCT 12/29/2023 07:20:00 22.3 Below low normal 40.0-48.4 (%) Final MCV 12/29/2023 07:20:00 85.1 82.0-99.5 (fL) Final MCH 12/29/2023 07:20:00 26.7 27.0-34.0 (pg) Final MCHC 12/29/2023 07:20:00 31.4 32.0-36.0 (g/dL) Final RDW 12/29/2023 07:20:00 18.6 11.5-15.5 (%) Final Platelets 12/29/2023 07:20:00 668 Above high normal 140-400 (K/uL) Final MPV 12/29/2023 07:20:00 8.9 6.6-11.1 (fL) Final Nucleated erythrocytes/100 leukocytes [Ratio] in Blood by Automated count 12/29/2023 07:20:00 0 <=0 (/100 WBCs) Final Performing Location LABORATORY [facility] [place] - [address] [place] [address]
--- OUTSIDE RECORDS SUMMARY | 2024-01-05 14:53 | External Medical Summary ---
Author Name Unknown Address Unknown Organization K01:LABORATORY [facility] [place] - [facility] [address] [place] [address] Laboratory Report Ordering Provider Test Date Status NAKUL ESQUIVEL 12/27/2023 15:37:00 Final Observation Date Value Abnormality Reference (Units ) Status Heparin, unfractionated level 12/27/2023 15:37:00 0.31 Above high normal <0.10 (IU/mL) Final Unfractionated therapeutic r anges for Anti Xa activity:
For Cardiac/Neurologic treatment: 0.3 to 0.6 IU/mL.
For treatment of DVT or Pulmonary Embolism: 0.3 to 0.7 IU/mL. Performing Location LABORATORY [facility] [place] - [address] [place] [address]
--- OUTSIDE RECORDS SUMMARY | 2024-01-05 14:53 | External Medical Summary ---
Author Name Unknown Address Unknown Organization K01:[place] [place] [address] [place] [address] Laboratory Report Ordering Provider Test Date Status ADIN LINO 12/29/2023 07:20:00 Final Complete with AM labs Observation Date Value Abnormality Reference (Units ) Status CK 12/29/2023 07:20:00 72 39-308 (U/ L) Final Performing Location LAB[facility] - [address] [place] [address]
--- OUTSIDE RECORDS SUMMARY | 2024-01-05 14:53 | External Medical Summary ---
Author Name Unknown Address Unknown Organization K01:LABORATORY [facility] [place] - [facility] [address] [place] [address] Laboratory Report Ordering Provider Test Date Status NAKUL ESQUIVEL 12/27/2023 08:55:00 Final Observation Date Value Abnormality Reference (Units ) Status Heparin, unfractionated level 12/27/2023 08:55:00 0.30 Above high normal <0.10 (IU/mL) Final Unfractionated therapeutic r anges for Anti Xa activity:
For Cardiac/Neurologic treatment: 0.3 to 0.6 IU/mL.
For treatment of DVT or Pulmonary Embolism: 0.3 to 0.7 IU/mL. Performing Location LABORATORY [facility] [place] - [address] [place] [address]
--- OUTSIDE RECORDS SUMMARY | 2024-01-05 14:53 | External Medical Summary ---
Author Name Unknown Address Unknown Organization K01:[place] [facility] [place] [address] [place] [address] Laboratory Report Ordering Provider Test Date Status NAKUL ESQUIVEL 12/26/2023 08:44:04 Final Observation Date Value Abnormality Reference (Units ) Status Sodium, Urine 12/26/2023 08:44:04 28 (mmol/ L) Final Performing Location LAB[facility] - [address] [place] [address]
--- OUTSIDE RECORDS SUMMARY | 2024-01-05 14:53 | External Medical Summary ---
Author Name Unknown Address Unknown Organization K01:[facility]ORATORY [facility] [place] - [address] [place] [address] Laboratory Report Ordering Provider Test Date Status RAFA ALEJNADRE 12/27/2023 06:32:00 Final Observation Date Value Abnormality Reference (Units ) Status BUN 12/27/2023 06:32:00 24 Above high normal 6-20 (mg/dL) Final Creatinine 12/27/2023 06:32:00 3.1 Above high normal 0.6-1.2 (mg/dL) Final Glomerular filtration rate/1.73 sq M.predicted [Volume Rate/Area] in Serum, Plasma or Blood by Creatinine-based formula (CKD-EPI) 12/27/2023 06:32:00 23 Below low normal >=60 (mL/min) Final eGFR is calculated based on the CKD-EPI 2020 equation Sodium 12/27/2023 06:32:00 139 135-146 (m mol/L) Final Potassium 12/27/2023 06:32:00 3.8 3.5-5.1 (m mol/L) Final Cl 12/27/2023 06:32:00 101 98-107 (mm ol/L) Final CO2 12/27/2023 06:32:00 26 22-32 (mmo l/L) Final Anion gap 12/27/2023 06:32:00 12 7-15 (mmol /L) Final Glucose 12/27/2023 06:32:00 126 Above high normal 70 -120 (mg/dL) Final Calcium 12/27/2023 06:32:00 8.2 Below low normal 8.4 -10.2 (mg/dL) Final Albumin 12/27/2023 06:32:00 2.6 Below low normal 3.8 -5.0 (g/dL) Final Phosphate 12/27/2023 06:32:00 3.2 2.5-4.8 (m g/dL) Final Performing Location LABORATORY [facility] [place] - [address] [facility] [address]
--- OUTSIDE RECORDS SUMMARY | 2024-01-05 14:53 | External Medical Summary ---
Author Name Unknown Address Unknown Organization K01:LABORATORY [place] [address] [facility] [address] Laboratory Report Ordering Provider Test Date Status ADIN LINO 12/29/2023 11:23:27 Final Observation Date Value Abnormality Reference (Units) Status PARAPROTEIN NORMAL/ABNORMAL 12/29/2023 11:23:27 Normal Normal Final Protein, Urine 12/29/2023 11:23:27 7 (mg/dL) Final Protein Fractions [Interpretation] in Urine by Electrophoresis Narrative 12/29/2023 11:23:27 No abnormal peaks detected. Urine protein concentration is very low. Suggest repeat testing on a 24 hour urine specimen,if clinically indicated. Final Albumin, Urine 12/29/2023 11:23:27 2.3 (mg/dL) Final Globulin [Mass/volume] in Urine by Electrophoresis 12/29/2023 11:23:27 4.7 (mg/dL) Final Performing Location LABORATORY [place] [address] [address] [facility] [address]
--- OUTSIDE RECORDS SUMMARY | 2024-01-05 14:53 | External Medical Summary ---
Author Name Unknown Address Unknown Organization K01:[place] [facility] [place] [address] [place] [address] Laboratory Report Ordering Provider Test Date Status NAKUL ESQUIVEL 12/28/2023 07:08:00 Final Observation Date Value Abnormality Reference (Units ) Status Heparin, unfractionated level 12/28/2023 07:08:00 0.45 Above high normal <0.10 (IU/mL) Final Unfractionated therapeutic r anges for Anti Xa activity:
For Cardiac/Neurologic treatment: 0.3 to 0.6 IU/mL.
For treatment of DVT or Pulmonary Embolism: 0.3 to 0.7 IU/mL. Performing Location [place] [facility] [place] [address] [address]
--- OUTSIDE RECORDS SUMMARY | 2024-01-05 14:53 | External Medical Summary ---
Author Name Unknown Address Unknown Organization K01:LABORATORY [facility] [place] - [facility] [address] [place] [address] Laboratory Report Ordering Provider Test Date Status NAKUL ESQUIVEL 12/26/2023 20:16:00 Final Observation Date Value Abnormality Reference (Units ) Status WBC, Total 12/26/2023 20:16:00 13.01 Above high normal 4.00-10.80 (K/uL) Final RBC 12/26/2023 20:16:00 2.79 4.50-5.25 (M/uL) Final Hemoglobin 12/26/2023 20:16:00 7.4 Below low normal 14.0-16.8 (g/dL) Final HCT 12/26/2023 20:16:00 22.8 Below low normal 40.0-48.4 (%) Final MCV 12/26/2023 20:16:00 81.7 82.0-99.5 (fL) Final MCH 12/26/2023 20:16:00 26.5 27.0-34.0 (pg) Final MCHC 12/26/2023 20:16:00 32.5 32.0-36.0 (g/dL) Final RDW 12/26/2023 20:16:00 17.2 11.5-15.5 (%) Final Platelets 12/26/2023 20:16:00 722 Above high normal 140-400 (K/uL) Final MPV 12/26/2023 20:16:00 8.8 6.6-11.1 (fL) Final Nucleated erythrocytes/100 leukocytes [Ratio] in Blood by Automated count 12/26/2023 20:16:00 0 <=0 (/100 WBCs) Final Performing Location LABORATORY [facility] [place] - [address] [place] [address]
--- OUTSIDE RECORDS SUMMARY | 2024-01-05 14:53 | External Medical Summary ---
Author Name Unknown Address Unknown Organization K01:LAB[place]ATORY [facility] [place] - [facility] [address] [place] [address] Laboratory Report Ordering Provider Test Date Status NAKUL ESQUIVEL 12/26/2023 14:17:00 Final Observation Date Value Abnormality Reference (Units ) Status Heparin, unfractionated level 12/26/2023 14:17:00 <0.10 <0.10 (IU/mL) Final Unfractionated therapeutic r anges for Anti Xa activity:
For Cardiac/Neurologic treatment: 0.3 to 0.6 IU/mL.
For treatment of DVT or Pulmonary Embolism: 0.3 to 0.7 IU/mL. Performing Location LABORATORY [facility] [place] - [address] [place] [address]
--- OUTSIDE RECORDS SUMMARY | 2024-01-05 14:53 | External Medical Summary ---
Author Name Unknown Address Unknown Organization K01:LABORATORY [facility] [place] - [address] [place] [address] Laboratory Report Ordering Provider Test Date Status JODY AGUIRRE 12/30/2023 06:17:00 Final Observation Date Value Abnormality Reference (Units ) Status Folic Acid 12/30/2023 06:17:00 7.1 >4.5 (ng/ mL) Final Performing Location LAB[facility]ATORY [facility] - [address] [place] [address]
--- OUTSIDE RECORDS SUMMARY | 2024-01-05 14:53 | External Medical Summary ---
Author Name Unknown Address Unknown Organization K01:LABORATORY [facility] - [address] [place] [address] Laboratory Report Ordering Provider Test Date Status CHRISTIANO PÉREZ 12/28/2023 07:08:00 Final Observation Date Value Abnormality Reference (Units ) Status CRP, low-sensitivity 12/28/2023 07:08:00 71 Above high normal <=5 (mg/L) Final Performing Location LABORATORY [facility] - [address] [place] [address]
--- OUTSIDE RECORDS SUMMARY | 2024-01-05 14:53 | External Medical Summary ---
Author Name Unknown Address Unknown Organization K01:LABORATORY [facility] - [address] [place] [address] Laboratory Report Ordering Provider Test Date Status JODY AGUIRRE 12/31/2023 06:38:00 Final Observation Date Value Abnormality Reference (Units ) Status PRASAD 12/31/2023 06:38:00 67 39-308 (U/ L) Final Performing Location LAB[facility]ATORY [facility] - [address] [place] [address]
--- OUTSIDE RECORDS SUMMARY | 2024-01-05 14:53 | External Medical Summary ---
Author Name Unknown Address Unknown Organization K01:LABORATORY [facility] [place] - [address] [place] [address] Laboratory Report Ordering Provider Test Date Status SERG HIGHLARRY 12/28/2023 07:08:00 Final Warfarin Therapy
INR: 2 .0-3.0 conventional anticoagulation
INR: 2.5- 3.5 high intensity anticoagulation Observation Date Value Abnormality Reference (Units ) Status PT 12/28/2023 07:08:00 13.9 11.6-15.2 (seconds) Final INR 12/28/2023 07:08:00 1.1 0.8-1.2 Final Performing Location LABORATORY [facility] [place] - [address] [place] [address]
--- OUTSIDE RECORDS SUMMARY | 2024-01-05 14:53 | External Medical Summary ---
Author Name Unknown Address Unknown Organization K01:LABORATORY [facility] - [address] [place] [address] Laboratory Report Ordering Provider Test Date Status CHRISTIANO PÉREZ 12/29/2023 07:20:00 Final Observation Date Value Abnormality Reference (Units ) Status CRP, low-sensitivity 12/29/2023 07:20:00 71 Above high normal <=5 (mg/L) Final Performing Location LAB[facility]ATORY [facility] - [address] [place] [address]
--- OUTSIDE RECORDS SUMMARY | 2024-01-05 14:53 | External Medical Summary ---
Author Name Unknown Address Unknown Organization K01:LABORATORY [facility] - [address] [place] [address] Laboratory Report Ordering Provider Test Date Status JODY AGUIRRE 12/30/2023 06:17:00 Final Observation Date Value Abnormality Reference (Units ) Status Ferritin 12/30/2023 06:17:00 959 Above high normal 30 -400 (ng/mL) Final Performing Location LAB[facility]AT[facility] - [address] [place] [address]
--- OUTSIDE RECORDS SUMMARY | 2024-01-05 14:53 | External Medical Summary ---
Author Name Unknown Address Unknown Organization K01:[place] [facility] [place] [address] [place] [address] Laboratory Report Ordering Provider Test Date Status SERG HIGHLARRY 12/29/2023 07:20:00 Final Warfarin Therapy
INR: 2 .0-3.0 conventional anticoagulation
INR: 2.5- 3.5 high intensity anticoagulation Observation Date Value Abnormality Reference (Units ) Status PT 12/29/2023 07:20:00 15.0 11.6-15.2 (seconds) Final INR 12/29/2023 07:20:00 1.2 0.8-1.2 Final Performing Location [place] [place] [address] [place] [address]
--- OUTSIDE RECORDS SUMMARY | 2024-01-05 14:53 | External Medical Summary ---
Author Name Unknown Address Unknown Organization K01:LABORATORY [facility] [place] - [address] [place] [address] Laboratory Report Ordering Provider Test Date Status CHRISTIANO PÉREZ 12/30/2023 06:17:00 Final Observation Date Value Abnormality Reference (Units ) Status CRP, low-sensitivity 12/30/2023 06:17:00 74 Above high normal <=5 (mg/L) Final Performing Location LAB[facility] - [address] [place] [address]
--- OUTSIDE RECORDS SUMMARY | 2024-01-05 14:53 | External Medical Summary ---
Author Name Unknown Address Unknown Organization K01:[place] [facility] [place] [facility] [address] [place] [address] Laboratory Report Ordering Provider Test Date Status NAKUL ESQUIVEL 12/29/2023 07:20:00 Final Observation Date Value Abnormality Reference (Units ) Status Heparin, unfractionated level 12/29/2023 07:20:00 0.32 Above high normal <0.10 (IU/mL) Final Unfractionated therapeutic r anges for Anti Xa activity:
For Cardiac/Neurologic treatment: 0.3 to 0.6 IU/mL.
For treatment of DVT or Pulmonary Embolism: 0.3 to 0.7 IU/mL. Performing Location [facility] [facility] [place] - [address] [place] [address]
--- OUTSIDE RECORDS SUMMARY | 2024-01-05 14:53 | External Medical Summary ---
Author Name Unknown Address Unknown Organization K01:[place] [facility] [place] - [facility] [address] [place] [address] Laboratory Report Ordering Provider Test Date Status MAHSA HIGH 12/27/2023 06:32:00 Final Observation Date Value Abnormality Reference (Units ) Status WBC, Total 12/27/2023 06:32:00 11.93 Above high normal 4.00-10.80 (K/uL) Final RBC 12/27/2023 06:32:00 2.68 4.50-5.25 (M/uL) Final Hemoglobin 12/27/2023 06:32:00 7.1 Below low normal 14.0-16.8 (g/dL) Final HCT 12/27/2023 06:32:00 22.2 Below low normal 40.0-48.4 (%) Final MCV 12/27/2023 06:32:00 82.8 82.0-99.5 (fL) Final MCH 12/27/2023 06:32:00 26.5 27.0-34.0 (pg) Final MCHC 12/27/2023 06:32:00 32.0 32.0-36.0 (g/dL) Final RDW 12/27/2023 06:32:00 17.5 11.5-15.5 (%) Final Platelets 12/27/2023 06:32:00 688 Above high normal 140-400 (K/uL) Final MPV 12/27/2023 06:32:00 8.8 6.6-11.1 (fL) Final Nucleated erythrocytes/100 leukocytes [Ratio] in Blood by Automated count 12/27/2023 06:32:00 0 <=0 (/100 WBCs) Final Performing Location LABORATORY [facility] [place] - [address] [place] [address]
--- OUTSIDE RECORDS SUMMARY | 2024-01-05 14:53 | External Medical Summary ---
Author Name Unknown Address Unknown Organization K01:LABORATORY [facility] [place] [address] [place] [address] Laboratory Report Ordering Provider Test Date Status JODY AGUIRRE 12/30/2023 06:17:00 Final Observation Date Value Abnormality Reference (Units ) Status Iron 12/30/2023 06:17:00 18 Below low normal 45-176 (ug/dL) Final Iron-binding capacity 12/30/2023 06:17:00 169 Below low normal 250-425 (ug/dL) Final Transferrin Sat % 12/30/2023 06:17:00 11 Below low normal 15-55 (%) Final Performing Location LABORATORY [facility] [place] - [address] [place] [address]
--- OUTSIDE RECORDS SUMMARY | 2024-01-05 14:53 | External Medical Summary ---
Author Name Unknown Address Unknown Organization K01:LABORATORY [facility] [place] - [address] [place] [address] Laboratory Report Ordering Provider Test Date Status RAFA ALEJANDRE 12/29/2023 07:20:00 Final Observation Date Value Abnormality Reference (Units ) Status BUN 12/29/2023 07:20:00 25 Above high normal 6-20 (mg/dL) Final Creatinine 12/29/2023 07:20:00 3.2 Above high normal 0.6-1.2 (mg/dL) Final Glomerular filtration rate/1.73 sq M.predicted [Volume Rate/Area] in Serum, Plasma or Blood by Creatinine-based formula (CKD-EPI) 12/29/2023 07:20:00 22 Below low normal >=60 (mL/min) Final eGFR is calculated based on the CKD-EPI 2020 equation Sodium 12/29/2023 07:20:00 138 135-146 (m mol/L) Final Potassium 12/29/2023 07:20:00 3.4 Below low normal 3.5 -5.1 (mmol/L) Final Cl 12/29/2023 07:20:00 100 98-107 (mm ol/L) Final CO2 12/29/2023 07:20:00 25 22-32 (mmo l/L) Final Anion gap 12/29/2023 07:20:00 13 7-15 (mmol /L) Final Glucose 12/29/2023 07:20:00 120 70-120 (mg /dL) Final Calcium 12/29/2023 07:20:00 8.3 Below low normal 8.4 -10.2 (mg/dL) Final Albumin 12/29/2023 07:20:00 2.6 Below low normal 3.8 -5.0 (g/dL) Final Phosphate 12/29/2023 07:20:00 4.2 2.5-4.8 (m g/dL) Final Performing Location LABORATORY [facility] - [address] [facility] [address]
--- OUTSIDE RECORDS SUMMARY | 2024-01-05 14:53 | External Medical Summary ---
Author Name Unknown Address Unknown Organization K01:LABORATORY [facility] [place] - [address] [place] [address] Laboratory Report Ordering Provider Test Date Status JODY AGUIRRE 12/30/2023 06:17:00 Final Observation Date Value Abnormality Reference (Units ) Status Vitamin B12 12/30/2023 06:17:00 937 191-9858 (pg/mL) Final Performing Location LAB[facility]ORY [facility] - [address] [place] [address]
--- OUTSIDE RECORDS SUMMARY | 2024-01-05 14:53 | External Medical Summary ---
Author Name Unknown Address Unknown Organization K01:LABORATORY [facility] [place] - [facility] [address] [place] [address] Laboratory Report Ordering Provider Test Date Status NAKUL ESQUIVEL 12/30/2023 06:17:00 Final Observation Date Value Abnormality Reference (Units ) Status Heparin, unfractionated level 12/30/2023 06:17:00 0.27 Above high normal <0.10 (IU/mL) Final Unfractionated therapeutic r anges for Anti Xa activity:
For Cardiac/Neurologic treatment: 0.3 to 0.6 IU/mL.
For treatment of DVT or Pulmonary Embolism: 0.3 to 0.7 IU/mL. Performing Location LABORATORY [facility] [place] - [address] [place] [address]
--- OUTSIDE RECORDS SUMMARY | 2024-01-05 14:53 | External Medical Summary ---
Author Name Unknown Address Unknown Organization K01:[place] [facility] [place] [address] [place] [address] Laboratory Report Ordering Provider Test Date Status JODY AGUIRRE 12/30/2023 13:41:00 Final Observation Date Value Abnormality Reference (Units ) Status HCT 12/30/2023 13:41:00 23.3 Below low normal 40. 0-48.4 (%) Final Performing Location [facility] - [address] [facility] [address]
--- OUTSIDE RECORDS SUMMARY | 2024-01-05 14:53 | External Medical Summary ---
Author Name Unknown Address Unknown Organization K01:[place]ORY [facility] [place] [address] [place] [address] Laboratory Report Ordering Provider Test Date Status NAKUL ESQUIVEL 12/27/2023 06:32:00 Final Observation Date Value Abnormality Reference (Units ) Status Vancomycin, level 12/27/2023 06:32:00 29.7 10 .0-40.0 (ug/mL) Final Performing Location LAB[facility]ORY [facility] - [address] [place] [address]
--- OUTSIDE RECORDS SUMMARY | 2024-01-05 14:53 | External Medical Summary ---
Author Name Unknown Address Unknown Organization K01:LABORATORY [place] [address] [place] [address] Laboratory Report Ordering Provider Test Date Status MAHSA HIGH 12/31/2023 06:38:00 Final Observation Date Value Abnormality Reference (Units ) Status WBC, Total 12/31/2023 06:38:00 7.83 4.00-10.80 (K/uL) Final RBC 12/31/2023 06:38:00 2.65 4.50-5.25 (M/uL) Final Hemoglobin 12/31/2023 06:38:00 7.2 Below low normal 14.0-16.8 (g/dL) Final HCT 12/31/2023 06:38:00 23.0 Below low normal 40.0-48.4 (%) Final MCV 12/31/2023 06:38:00 86.8 82.0-99.5 (fL) Final MCH 12/31/2023 06:38:00 27.2 27.0-34.0 (pg) Final MCHC 12/31/2023 06:38:00 31.3 32.0-36.0 (g/dL) Final RDW 12/31/2023 06:38:00 19.0 11.5-15.5 (%) Final Platelets 12/31/2023 06:38:00 575 Above high normal 140-400 (K/uL) Final MPV 12/31/2023 06:38:00 8.9 6.6-11.1 (fL) Final Nucleated erythrocytes/100 leukocytes [Ratio] in Blood by Automated count 12/31/2023 06:38:00 0 <=0 (/100 WBCs) Final Performing Location [place]ORY [facility] [place] [address] [place] [address]
--- OUTSIDE RECORDS SUMMARY | 2024-01-05 14:53 | External Medical Summary ---
Author Name Unknown Address Unknown Organization K01:[place] [facility] [place] [address] [place] [address] Laboratory Report Ordering Provider Test Date Status RAFA ALEJANDRE 12/30/2023 06:17:00 Final Observation Date Value Abnormality Reference (Units ) Status BUN 12/30/2023 06:17:00 24 Above high normal 6-20 (mg/dL) Final Creatinine 12/30/2023 06:17:00 3.2 Above high normal 0.6-1.2 (mg/dL) Final Glomerular filtration rate/1.73 sq M.predicted [Volume Rate/Area] in Serum, Plasma or Blood by Creatinine-based formula (CKD-EPI) 12/30/2023 06:17:00 22 Below low normal >=60 (mL/min) Final eGFR is calculated based on the CKD-EPI 2020 equation Sodium 12/30/2023 06:17:00 141 135-146 (m mol/L) Final Potassium 12/30/2023 06:17:00 3.5 3.5-5.1 (m mol/L) Final Cl 12/30/2023 06:17:00 106 98-107 (mm ol/L) Final CO2 12/30/2023 06:17:00 25 22-32 (mmo l/L) Final Anion gap 12/30/2023 06:17:00 10 7-15 (mmol /L) Final Glucose 12/30/2023 06:17:00 116 70-120 (mg /dL) Final Calcium 12/30/2023 06:17:00 8.2 Below low normal 8.4 -10.2 (mg/dL) Final Albumin 12/30/2023 06:17:00 2.6 Below low normal 3.8 -5.0 (g/dL) Final Phosphate 12/30/2023 06:17:00 4.1 2.5-4.8 (m g/dL) Final Performing Location LABORATORY [facility] - [address] [place] [address]
--- OUTSIDE RECORDS SUMMARY | 2024-01-05 14:53 | External Medical Summary ---
Author Name Unknown Address Unknown Organization K01:LABORATORY [facility] [place] - [address] [place] [address] Laboratory Report Ordering Provider Test Date Status NAKUL ESQUIVEL 12/26/2023 08:44:04 Final Normal: <150 mg/ g creatinine
High: 150-500 mg/g creatinine
Very High: >500 mg/g creatinine
Nephrotic: >3000 mg/g creatinine Observation Date Value Abnormality Reference (Units ) Status Protein/Creatinine [Ratio] in Urine 12/26/2023 08:44:04 140 <150 (mg/g ) Final Protein, Urine 12/26/2023 08:44:04 7 (mg/dL) Final Creatinine, Urine 12/26/2023 08:44:04 50 (mg/dL) Final Performing Location LABORATORY [facility] [place] - [address] [place] [address]
--- OUTSIDE RECORDS SUMMARY | 2024-01-05 14:53 | External Medical Summary ---
Author Name Unknown Address Unknown Organization K01:LABORATORY [facility] [place] - [facility]note 3[facility] [address] [place] [address] Laboratory Report Ordering Provider Test Date Status JODY AGUIRRE 12/30/2023 15:35:00 Final Observation Date Value Abnormality Reference (Units ) Status Heparin, unfractionated level 12/30/2023 15:35:00 0.35 Above high normal <0.10 (IU/mL) Final Unfractionated therapeutic r anges for Anti Xa activity:
For Cardiac/Neurologic treatment: 0.3 to 0.6 IU/mL.
For treatment of DVT or Pulmonary Embolism: 0.3 to 0.7 IU/mL. Performing Location LABORATORY [facility] [place] - [address] [place] [address]
--- OUTSIDE RECORDS SUMMARY | 2024-01-05 14:53 | External Medical Summary ---
Author Name Unknown Address Unknown Organization K01:LABORATORY [facility] [place] - [address] [place] [address] Laboratory Report Ordering Provider Test Date Status ADIN LINO 12/29/2023 10:33:00 Final Observation Date Value Abnormality Reference (Units) Status PARAPROTEIN NORMAL/ABNORMAL 12/29/2023 10:33:00 Normal Normal Final Immunofixation for Serum or Plasma 12/29/2023 10:33:00 No monoclonal gammopathy detected. Final Performing Location LABORATORY [facility] [place] - [address] [place] [address]
--- OUTSIDE RECORDS SUMMARY | 2024-01-05 14:53 | External Medical Summary ---
Author Name Unknown Address Unknown Organization K01:[place] [facility] [place] [address] [place] [address] Laboratory Report Ordering Provider Test Date Status NAKUL ESQUIVEL 12/28/2023 07:08:00 Final Observation Date Value Abnormality Reference (Units ) Status Vancomycin, level 12/28/2023 07:08:00 21.3 10 .0-40.0 (ug/mL) Final Performing Location LAB[facility] - [address] [place] [address]
--- OUTSIDE RECORDS SUMMARY | 2024-01-05 14:53 | External Medical Summary ---
Author Name Unknown Address Unknown Organization K01:[place] [facility] [place] [address] [place] [address] Laboratory Report Ordering Provider Test Date Status SERG HIGHLARRY 12/27/2023 06:32:00 Final Warfarin Therapy
INR: 2 .0-3.0 conventional anticoagulation
INR: 2.5- 3.5 high intensity anticoagulation Observation Date Value Abnormality Reference (Units ) Status PT 12/27/2023 06:32:00 14.8 11.6-15.2 (seconds) Final INR 12/27/2023 06:32:00 1.2 0.8-1.2 Final Performing Location [place] [facility] [place] [address] [place] [address]
--- OUTSIDE RECORDS SUMMARY | 2024-01-05 14:54 | External Medical Summary ---
Author Name Unknown Address Unknown Organization K01:[place] [facility] [place] [facility] [address] [facility] [address] [place] [address] Laboratory Report Ordering Provider Test Date Status MAHSA HIGH 12/24/2023 05:31:00 Final Observation Date Value Abnormality Reference (Units ) Status WBC, Total 12/24/2023 05:31:00 12.35 Above high normal 4.00-10.80 (K/uL) Final RBC 12/24/2023 05:31:00 2.49 4.50-5.25 (M/uL) Final Hemoglobin 12/24/2023 05:31:00 6.6 Below low normal 14.0-16.8 (g/dL) Final HCT 12/24/2023 05:31:00 20.7 Below low normal 40.0-48.4 (%) Final MCV 12/24/2023 05:31:00 83.1 82.0-99.5 (fL) Final MCH 12/24/2023 05:31:00 26.5 27.0-34.0 (pg) Final MCHC 12/24/2023 05:31:00 31.9 32.0-36.0 (g/dL) Final RDW 12/24/2023 05:31:00 16.4 11.5-15.5 (%) Final Platelets 12/24/2023 05:31:00 549 Above high normal 140-400 (K/uL) Final MPV 12/24/2023 05:31:00 8.6 6.6-11.1 (fL) Final Nucleated erythrocytes/100 leukocytes [Ratio] in Blood by Automated count 12/24/2023 05:31:00 0 <=0 (/100 WBCs) Final Performing Location [place] [facility] [place] [address] [place] [address]
--- OUTSIDE RECORDS SUMMARY | 2024-01-05 14:54 | External Medical Summary ---
Author Name Unknown Address Unknown Organization K01:LABORATORY [facility] [place] - [address] [place] [address] Laboratory Report Ordering Provider Test Date Status NAKUL ESQUIVEL 2023 05:38:00 Final Observation Date Value Abnormality Reference (Units ) Status Vancomycin, level 2023 05:38:00 18.8 10 .0-40.0 (ug/mL) Final Performing Location LAB[facility] - [address] [place] [address]
--- OUTSIDE RECORDS SUMMARY | 2024-01-05 14:54 | External Medical Summary ---
Author Name Unknown Address Unknown Organization K01:[place] [facility] [place] [facility] [address] [place] [address] Laboratory Report Ordering Provider Test Date Status NAKUL ESQUIVEL 12/24/2023 08:38:00 Final Observation Date Value Abnormality Reference (Units ) Status Heparin, unfractionated level 12/24/2023 08:38:00 0.29 Above high normal <0.10 (IU/mL) Final Unfractionated therapeutic r anges for Anti Xa activity:
For Cardiac/Neurologic treatment: 0.3 to 0.6 IU/mL.
For treatment of DVT or Pulmonary Embolism: 0.3 to 0.7 IU/mL. Performing Location [place] [facility] [place] [address] [place] [address]
--- OUTSIDE RECORDS SUMMARY | 2024-01-05 14:54 | External Medical Summary ---
Author Name Unknown Address Unknown Organization K01:LABORATORY [address] [place] [address] Laboratory Report Ordering Provider Test Date Status RAFA ALEJANDRE 12/25/2023 06:55:00 Final Observation Date Value Abnormality Reference (Units ) Status BUN 12/25/2023 06:55:00 16 6-20 (mg/dL) Final Creatinine 12/25/2023 06:55:00 2.5 Above high normal 0.6-1.2 (mg/dL) Final Glomerular filtration rate/1.73 sq M.predicted [Volume Rate/Area] in Serum, Plasma or Blood by Creatinine-based formula (CKD-EPI) 12/25/2023 06:55:00 29 Below low normal >=60 (mL/min) Final eGFR is calculated based on the CKD-EPI 2020 equation Sodium 12/25/2023 06:55:00 129 Below low normal 135 -146 (mmol/L) Final Potassium 12/25/2023 06:55:00 3.4 Below low normal 3.5 -5.1 (mmol/L) Final Cl 12/25/2023 06:55:00 93 Below low normal 98- 107 (mmol/L) Final CO2 12/25/2023 06:55:00 24 22-32 (mmo l/L) Final Anion gap 12/25/2023 06:55:00 12 7-15 (mmol /L) Final Glucose 12/25/2023 06:55:00 134 Above high normal 70 -120 (mg/dL) Final Calcium 12/25/2023 06:55:00 8.1 Below low normal 8.4 -10.2 (mg/dL) Final Albumin 12/25/2023 06:55:00 2.5 Below low normal 3.8 -5.0 (g/dL) Final Phosphate 12/25/2023 06:55:00 3.1 2.5-4.8 (m g/dL) Final Performing Location LABORATORY [facility] [place] - [address] [facility] [address]
--- OUTSIDE RECORDS SUMMARY | 2024-01-05 14:54 | External Medical Summary ---
Author Name Unknown Address Unknown Organization K01:LAB[place]ORY [facility] [place] [address] [place] [address] Laboratory Report Ordering Provider Test Date Status DAVID HESTER 12/22/2023 18:17:00 Preliminary Observation Date Value Abnormality Reference (Units) Status COMMENT 12/22/2023 18:17:00 The specimen used for this testing had ID confirmed via the Specimen Identification Confirmation/Waiver process. Preliminary COMMENT 12/22/2023 18:17:00 Preliminary Performing Location LAB[facility]ORY [facility] [place] [address] [place] [address]
--- OUTSIDE RECORDS SUMMARY | 2024-01-05 14:54 | External Medical Summary ---
Author Name Unknown Address Unknown Organization K01:LABORATORY [facility] [place] - [facility] [address] [place] [address] Laboratory Report Ordering Provider Test Date Status NAKUL ESQUIVEL 12/24/2023 16:44:00 Final Observation Date Value Abnormality Reference (Units ) Status Heparin, unfractionated level 12/24/2023 16:44:00 0.36 Above high normal <0.10 (IU/mL) Final Unfractionated therapeutic r anges for Anti Xa activity:
For Cardiac/Neurologic treatment: 0.3 to 0.6 IU/mL.
For treatment of DVT or Pulmonary Embolism: 0.3 to 0.7 IU/mL. Performing Location LABORATORY [facility] [place] - [address] [place] [address]
--- OUTSIDE RECORDS SUMMARY | 2024-01-05 14:54 | External Medical Summary | Summary of Care ---
Author Name Unknown Organization [facility] Address [address] [place] [address] Phone [phone] Care Team Providers Care Investor Name Role Phone Raul Still MD Primary Care Provide r Encounter Details Date Type Department Care Team (Latest Contact Info) Description 12/17/2023 2:25 PM EDT - 12/17/2023 7:16 PM EDT Hospital Encounter Radiology Film File [address], [place] [id number] Discharge Disposition: Home - Self Care Allergies No known active allergiesdocumented as of this encounter (statuses as of 12/22/2023) Medications Medication Sig Dispensed Refills Start Date End Date Status Atenolol 25 MG Oral Tablet (Tenormin)Indicati ons:Primary hypertension TAKE 1 TABLET BY MOUTH EVERY DAY IN THE MORNING 90 Tablet 1 07/13/2023 Suspended Additional Information Enalapril Maleate 20 MG Oral Tablet (Vasotec)Indicatio ns:Primary hypertension TAKE 1 TABLET BY MOUTH EVERY DAY WITH THE 10MG TABS FOR TOTAL DAILY DOSE OF 30MG 90 Tablet 1 07/13/2023 Suspended Additional Information Baclofen 20 MG Oral TabletIndications: Acute bilateral low back pain without sciatica,Pain of right lower leg Take 1 Tablet by mouth in the morning and 1 Tablet at noon and 1 Tablet before bedtime. 30 Tablet 1 10/30/2023 Suspended Additional Information Naproxen 500 MG Oral Tablet (Naprosyn)Indicati ons:Sprain of ligament of lumbosacral joint, sequela,DDD (degenerative disc disease), lumbosacral Take 1 Tablet by mouth 2 times a day as needed for Pain. 180 Tablet 1 10/30/2023 Suspended Additional Information Simvastatin 20 MG Oral Tablet (Zocor)Indications :Dyslipidemia, goal LDL below 130 TAKE 1 TABLET BY MOUTH EVERYDAY AT BEDTIME 90 Tablet 2 11/16/2023 Suspended Additional Information Enalapril Maleate 10 MG Oral Tablet (Vasotec)Indicatio ns:Primary hypertension TAKE 1 TABLET BY MOUTH EVERY DAY IN THE MORNING 90 Tablet 2 11/16/2023 Suspended Additional Information Chlorthalidone 25 MG Oral Tablet (Hygroton)Indicati ons:Primary hypertension TAKE 1 TABLET BY MOUTH EVERY DAY IN THE MORNING 90 Tablet 2 11/16/2023 Suspended Additional Information documented as of this encounter (statuses as of 12/22/2023) Active Problems Problem Noted Date Diagnosed Date Lytic bone lesion of femur 12/22/2023 DICK (acute kidney injury) 12/21/2023 Cavitary [...] as of this encounter (statuses as of 12/22/2023) Resolved Problems Problem Noted Date Diagnosed Date Resolved Date Acute bilateral low back kaity n without sciatica 08/05/2016 08/06/2017 BMI 34.0-34.9,adult 04/21/2013 08/23/20 19 Dyslipidemia, goal to be determined 12/16/2004 12/31/2010 HYPERTENSION NOS 08/08/2009 Overview: Modified per HTN protocol #16. Allergic rhinitis 08/06/2017 documented as of this encounter (statuses as of 12/22/2023) Immunizations Name Administration Dates Next Due COVID-19 [...] 01/04/2024 3:30 PM EDT Office Visit Orthopaedics, [place] [address] [place] [address] Sebas Sheridan MD [address] [place] [address] 03/15/2024 1:20 PM EDT [facility] [address] [place] [phone] Madai Rousseau DO [address] [place] [address] 03/17/2024 10:40 AM EDT Office Visit Family Medicine [address] [place] [phone] Raul Still MD [address] [place] [address] [place] [address] Scheduled Procedures Name Priority Associated Diagnoses Date/Ti me BIOPSY BONE TROCAR OR NEEDLE DEEP Pain Health Maintenance Due Date Last Done Comments Pneumococcal Vaccine: Pediatrics (0 to 5 Years) and At-Risk Patients (6 to 64 Years) (1 of 2 - PCV) 1972 HIV Screening 1981 Hepatitis B (1 of 3 - 19+ 3-dose series) 1985 Cologuard 12/24/2011 Fecal Occult Blood Test 12/24/2011 Sigmoidoscopy 12/24/2011 Depression Screening 08/23/2021 08/23/2020 Albumin/Creatinine Ratio 11/10/2024 11/10/2021, 05/2020 GFR 12/21/2024 12/22/2023, 09/2023, 12/16/2023, Additional history exists Diabetes Screening 12/21/2026 12/22/2023, 0 12/21/2023, 12/16/2023, Additional history exists Lipid Panel 07/09/2028 07/09/2023, [...] Not on filedocumented as of this encounter Procedures Procedure Name Priority Date/Time Associated Diagnosis Comments RADIOLOGY EXAM - CT (IMAGES ONLY, NO REPORT) Routine 12/17/2023 2:25 PM EDT documented in this encounter Results * RADIOLOGY EXAM - CT (IMAGES ONLY, NO REPORT) (12/17/2023 2:25 PM EDT) 12/17/2023 2:17 PM EDT Narrative Scheduling, Silent - 12/22/2023 12:14 AM EDT This is an imaging study not interpreted or resulted by a [facility] or [facility] contracted radiologist. Montrell Carmen PA-C RAD CT documented in this encounter Advance Directives Latest Code Status on File Code Status Date Activated Date Inactivated Comments Full Code 12/21/2023 10:35 PM This order reflects the patients wishes and were consensually agreed upon. Question Answer Comments Discussion of Advance Directives occurred with: Patient Does the patient have a Living Will? No Does the patient have Health Care Power of Therapeutic Consultant? No Care Teams Investor Relationship Specialty Start Date End Date Raul Still MD [address] [place] [address] [place] [phone] PCP - General Family Medicine 10/30/23 documented as of this encounter
--- OUTSIDE RECORDS SUMMARY | 2024-01-05 14:54 | External Medical Summary ---
Author Name Unknown Address Unknown Organization K01:LABORATORY [facility] [place] - [facility] [place] [address] [place] [address] Laboratory Report Ordering Provider Test Date Status NAKUL ESQUIVEL 12/24/2023 01:45:00 Final Observation Date Value Abnormality Reference (Units ) Status Heparin, unfractionated level 12/24/2023 01:45:00 0.40 Above high normal <0.10 (IU/mL) Final Unfractionated therapeutic r anges for Anti Xa activity:
For Cardiac/Neurologic treatment: 0.3 to 0.6 IU/mL.
For treatment of DVT or Pulmonary Embolism: 0.3 to 0.7 IU/mL. Performing Location LABORATORY [facility] [place] - [address] [place] [address]
--- OUTSIDE RECORDS SUMMARY | 2024-01-05 14:54 | External Medical Summary ---
Author Name Unknown Address Unknown Organization [id number][place] [facility] [place] [facility] [address] [place] [address] Laboratory Report Ordering Provider Test Date Status NAKUL ESQUIVEL 12/24/2023 22:10:00 Final Get Heparin, unfractionated (Xa) level 6 hours after start of infusion and 6 hours after each dose adjustment Observation Date Value Abnormality Reference (Units ) Status Heparin, unfractionated level 12/24/2023 22:10:00 0.32 Above high normal <0.10 (IU/mL) Final Unfractionated therapeutic r anges for Anti Xa activity:
For Cardiac/Neurologic treatment: 0.3 to 0.6 IU/mL.
For treatment of DVT or Pulmonary Embolism: 0.3 to 0.7 IU/mL. Performing Location [place] [facility] [place] [facility] [address] [place] [address]
--- OUTSIDE RECORDS SUMMARY | 2024-01-05 14:54 | External Medical Summary ---
Author Name Unknown Address Unknown Organization : Laboratory Report Ordering Provider Test Date Status NAKUL ESQUIVEL 12/25/2023 12:07:37 Final Observation Date Value Abnormality Reference (Units ) Status Glucose Point of Care 12/25/2023 12:07:37 130 Above high normal 70-120 (mg/dL) Final Performing Location
--- OUTSIDE RECORDS SUMMARY | 2024-01-05 14:54 | External Medical Summary ---
Author Name Unknown Address Unknown Organization [id number]:[facility]ORY [facility] [place] [address] [place] [address] Laboratory Report Ordering Provider Test Date Status NAKUL ESQUIVEL 12/26/2023 07:38:00 Final Warfarin Therapy
INR: 2 .0-3.0 conventional anticoagulation
INR: 2.5- 3.5 high intensity anticoagulation Observation Date Value Abnormality Reference (Units ) Status PT 12/26/2023 07:38:00 14.1 11.6-15.2 (seconds) Final INR 12/26/2023 07:38:00 1.1 0.8-1.2 Final Performing Location [facility] [place] [address] [place] [address]
--- OUTSIDE RECORDS SUMMARY | 2024-01-05 14:54 | External Medical Summary ---
Author Name Unknown Address Unknown Organization K01:LABORATORY [facility] [place] - [facility] [address] [place] [address] Laboratory Report Ordering Provider Test Date Status NAKUL ESQUIVEL 12/26/2023 07:38:00 Final Observation Date Value Abnormality Reference (Units ) Status WBC, Total 12/26/2023 07:38:00 13.60 Above high normal 4.00-10.80 (K/uL) Final RBC 12/26/2023 07:38:00 2.64 4.50-5.25 (M/uL) Final Hemoglobin 12/26/2023 07:38:00 7.0 Below low normal 14.0-16.8 (g/dL) Final HCT 12/26/2023 07:38:00 21.9 Below low normal 40.0-48.4 (%) Final MCV 12/26/2023 07:38:00 83.0 82.0-99.5 (fL) Final MCH 12/26/2023 07:38:00 26.5 27.0-34.0 (pg) Final MCHC 12/26/2023 07:38:00 32.0 32.0-36.0 (g/dL) Final RDW 12/26/2023 07:38:00 17.0 11.5-15.5 (%) Final Platelets 12/26/2023 07:38:00 620 Above high normal 140-400 (K/uL) Final MPV 12/26/2023 07:38:00 8.7 6.6-11.1 (fL) Final Nucleated erythrocytes/100 leukocytes [Ratio] in Blood by Automated count 12/26/2023 07:38:00 0 <=0 (/100 WBCs) Final Performing Location LABORATORY [facility] [place] - [address] [place] [address]
--- OUTSIDE RECORDS SUMMARY | 2024-01-05 14:54 | External Medical Summary ---
Author Name Unknown Address Unknown Organization K01:[facility]ATORY [facility] [place] - [facility] [address] [place] [address] Laboratory Report Ordering Provider Test Date Status MAHSA HIGH 2023 05:38:00 Final Observation Date Value Abnormality Reference (Units ) Status WBC, Total 2023 05:38:00 13.58 Above high normal 4.00-10.80 (K/uL) Final RBC 2023 05:38:00 2.81 4.50-5.25 (M/uL) Final Hemoglobin 2023 05:38:00 7.4 Below low normal 14.0-16.8 (g/dL) Final HCT 2023 05:38:00 22.5 Below low normal 40.0-48.4 (%) Final MCV 2023 05:38:00 80.1 82.0-99.5 (fL) Final MCH 2023 05:38:00 26.3 27.0-34.0 (pg) Final MCHC 2023 05:38:00 32.9 32.0-36.0 (g/dL) Final RDW 2023 05:38:00 16.2 11.5-15.5 (%) Final Platelets 2023 05:38:00 638 Above high normal 140-400 (K/uL) Final MPV 2023 05:38:00 8.8 6.6-11.1 (fL) Final Nucleated erythrocytes/100 leukocytes [Ratio] in Blood by Automated count 2023 05:38:00 0 <=0 (/100 WBCs) Final Performing Location LABORATORY [facility] [place] - [address] [place] [address]
--- OUTSIDE RECORDS SUMMARY | 2024-01-05 14:54 | External Medical Summary ---
Author Name Unknown Address Unknown Organization K01:LABORATORY [facility] [place] - [address] [place] [address] Laboratory Report Ordering Provider Test Date Status MAHSA HIGH 12/24/2023 05:31:00 Final Warfarin Therapy
INR: 2 .0-3.0 conventional anticoagulation
INR: 2.5- 3.5 high intensity anticoagulation Observation Date Value Abnormality Reference (Units ) Status PT 12/24/2023 05:31:00 15.1 11.6-15.2 (seconds) Final INR 12/24/2023 05:31:00 1.2 0.8-1.2 Final Performing Location LABORATORY [facility] [place] - [address] [place] [address]
--- OUTSIDE RECORDS SUMMARY | 2024-01-05 14:54 | External Medical Summary ---
Author Name Unknown Address Unknown Organization K01:LABORATORY [facility] [place] - [facility] [address] [place] [address] Laboratory Report Ordering Provider Test Date Status MAHSA HIGH 12/25/2023 06:55:00 Final Observation Date Value Abnormality Reference (Units ) Status WBC, Total 12/25/2023 06:55:00 12.41 Above high normal 4.00-10.80 (K/uL) Final RBC 12/25/2023 06:55:00 3.09 4.50-5.25 (M/uL) Final Hemoglobin 12/25/2023 06:55:00 8.2 Below low normal 14.0-16.8 (g/dL) Final HCT 12/25/2023 06:55:00 25.3 Below low normal 40.0-48.4 (%) Final MCV 12/25/2023 06:55:00 81.9 82.0-99.5 (fL) Final MCH 12/25/2023 06:55:00 26.5 27.0-34.0 (pg) Final MCHC 12/25/2023 06:55:00 32.4 32.0-36.0 (g/dL) Final RDW 12/25/2023 06:55:00 17.0 11.5-15.5 (%) Final Platelets 12/25/2023 06:55:00 660 Above high normal 140-400 (K/uL) Final MPV 12/25/2023 06:55:00 8.8 6.6-11.1 (fL) Final Nucleated erythrocytes/100 leukocytes [Ratio] in Blood by Automated count 12/25/2023 06:55:00 0 <=0 (/100 WBCs) Final Performing Location LABORATORY [facility] [place] - [address] [place] [address]
--- OUTSIDE RECORDS SUMMARY | 2024-01-05 14:54 | External Medical Summary ---
Author Name Unknown Address Unknown Organization K01:LABORATORY [facility] [place] - [address] [place] [address] Laboratory Report Ordering Provider Test Date Status SERG HIGHLARRY 2023 05:38:00 Final Warfarin Therapy
INR: 2 .0-3.0 conventional anticoagulation
INR: 2.5- 3.5 high intensity anticoagulation Observation Date Value Abnormality Reference (Units ) Status PT 2023 05:38:00 15.0 11.6-15.2 (seconds) Final INR 2023 05:38:00 1.2 0.8-1.2 Final Performing Location LABORATORY [facility] [place] - [address] [place] [address]
--- OUTSIDE RECORDS SUMMARY | 2024-01-05 14:54 | External Medical Summary ---
Author Name Unknown Address Unknown Organization K01:[place] [facility] [place] [address] [place] [address] Laboratory Report Ordering Provider Test Date Status NAKUL ESQUIVEL 12/24/2023 11:26:00 Final Observation Date Value Abnormality Reference (Units ) Status Vancomycin, level 12/24/2023 11:26:00 16.1 10 .0-40.0 (ug/mL) Final Performing Location LABORATORY [facility] - [address] [place] [address]
--- OUTSIDE RECORDS SUMMARY | 2024-01-05 14:54 | External Medical Summary ---
Author Name Unknown Address Unknown Organization K01:LABORATORY [facility] [place] - [address] [place] [address] Laboratory Report Ordering Provider Test Date Status ITANAKUL BRISCOE 12/26/2023 07:38:00 Final Anticoagulation may affect t esting. Refer to [facility] Test Catalog for a list of effects. Observation Date Value Abnormality Reference (Units ) Status aPTT panel - Platelet poor plasma 12/26/2023 07:38:00 36 21-38 (seconds) Final Performing Location LABORATORY [facility] [place] - [address] [place] [address]
--- OUTSIDE RECORDS SUMMARY | 2024-01-05 14:54 | External Medical Summary ---
Author Name Unknown Address Unknown Organization K01:LABORATORY [facility] [place] - [address] [place] [address] Laboratory Report Ordering Provider Test Date Status MAHSA HIGH 12/26/2023 06:43:00 Final Warfarin Therapy
INR: 2 .0-3.0 conventional anticoagulation
INR: 2.5- 3.5 high intensity anticoagulation Observation Date Value Abnormality Reference (Units ) Status PT 12/26/2023 06:43:00 14.1 11.6-15.2 (seconds) Final INR 12/26/2023 06:43:00 1.1 0.8-1.2 Final Performing Location LABORATORY [facility] [place] - [address] [place] [address]
--- OUTSIDE RECORDS SUMMARY | 2024-01-05 14:54 | External Medical Summary ---
Author Name Unknown Address Unknown Organization K01[place] [facility] [place] [facility] [address] [place] [address] Laboratory Report Ordering Provider Test Date Status NAKUL ESQUIVEL 12/26/2023 07:38:00 Final Observation Date Value Abnormality Reference (Units ) Status Heparin, unfractionated level 12/26/2023 07:38:00 <0.10 <0.10 (IU/mL) Final Unfractionated therapeutic r anges for Anti Xa activity:
For Cardiac/Neurologic treatment: 0.3 to 0.6 IU/mL.
For treatment of DVT or Pulmonary Embolism: 0.3 to 0.7 IU/mL. Performing Location [place] [facility] [place] [address] [place] [address]
--- OUTSIDE RECORDS SUMMARY | 2024-01-05 14:54 | External Medical Summary ---
Author Name Unknown Address Unknown Organization K01:[facility]ORY [facility] [place] - [facility] [address] [place] [address] Laboratory Report Ordering Provider Test Date Status MAHSA HIGH 12/26/2023 06:43:00 Final Observation Date Value Abnormality Reference (Units ) Status WBC, Total 12/26/2023 06:43:00 14.25 Above high normal 4.00-10.80 (K/uL) Final RBC 12/26/2023 06:43:00 2.84 4.50-5.25 (M/uL) Final Hemoglobin 12/26/2023 06:43:00 7.6 Below low normal 14.0-16.8 (g/dL) Final HCT 12/26/2023 06:43:00 23.7 Below low normal 40.0-48.4 (%) Final MCV 12/26/2023 06:43:00 83.5 82.0-99.5 (fL) Final MCH 12/26/2023 06:43:00 26.8 27.0-34.0 (pg) Final MCHC 12/26/2023 06:43:00 32.1 32.0-36.0 (g/dL) Final RDW 12/26/2023 06:43:00 17.1 11.5-15.5 (%) Final Platelets 12/26/2023 06:43:00 664 Above high normal 140-400 (K/uL) Final MPV 12/26/2023 06:43:00 8.8 6.6-11.1 (fL) Final Nucleated erythrocytes/100 leukocytes [Ratio] in Blood by Automated count 12/26/2023 06:43:00 0 <=0 (/100 WBCs) Final Performing Location LABORATORY [facility] [place] - [address] [place] [address]
--- OUTSIDE RECORDS SUMMARY | 2024-01-05 14:54 | External Medical Summary ---
Author Name Unknown Address Unknown Organization K01:LAB[facility]ORY [facility] [place] [address] [address] Laboratory Report Ordering Provider Test Date Status NAKUL ESQUIVEL 12/26/2023 08:44:04 Final Observation Date Value Abnormality Reference (Units ) Status Color of Urine by Auto 12/26/2023 08:44:04 Colorless Colorless, Light Yellow, Yellow, Dark Yellow Final Clarity, Urine 12/26/2023 08:44:04 Clear Clear Final Glucose [Mass/volume] in Urine by Automated test strip 12/26/2023 08:44:04 Negative Negative (mg/dL) Final Bilirubin.total [Presence] in Urine by Automated test strip 12/26/2023 08:44:04 Negative Negative Final Ketones [Mass/volume] in Urine by Automated test strip 12/26/2023 08:44:04 Negative Negative (mg/dL) Final Specific gravity, Urine 12/26/2023 08:44:04 1.008 1.003-1.030 Final Hemoglobin [Presence] in Urine by Automated test strip 12/26/2023 08:44:04 Trace Abnormal Negative Final pH, Urine 12/26/2023 08:44:04 5.5 5.0-7.5 (Units) Final Protein [Mass/volume] in Urine by Automated test strip 12/26/2023 08:44:04 Negative Negative (mg/dL) Final Urobilinogen [Mass/volume] in Urine by Automated test strip 12/26/2023 08:44:04 Normal Normal (mg/dL) Final Nitrite [Presence] in Urine by Automated test strip 12/26/2023 08:44:04 Negative Negative Final Leukocyte esterase [Presence] in Urine by Automated test strip 12/26/2023 08:44:04 Negative Negative Final RBC, Urine 12/26/2023 08:44:04 0-2 0-2 (/HPF) Final WBC, Urine 12/26/2023 08:44:04 0-2 0-2 (/HPF) Final Bacteria [#/area] in Urine sediment by Microscopy high power field 12/26/2023 08:44:04 0-25 0-25 (/HPF) Final CULTURE, URINE - [facility] 12/26/2023 08:44:04 Final Culture not indicated by uri nalysis results\X09\ Performing Location LABORATORY [facility] [place] - [facility] [address] [facility] [address]
--- OUTSIDE RECORDS SUMMARY | 2024-01-05 14:54 | External Medical Summary ---
Author Name Unknown Address Unknown Organization K01:[place] [facility] [place] [address] [facility] [address] Laboratory Report Ordering Provider Test Date Status DAVID HESTER 12/25/2023 11:19:00 Final No anaerobic growth. Observation Date Value Abnormality Reference (Units ) Status Bacteria identified in Specimen by Culture 12/25/2023 11:19:00 [id number]^STAPH YLOCOCCUS AUREUS MRSA Very abnormal Final Few Staphylococcus aureus MR SA, This patient may require isolation. Gram Stain 12/25/2023 11:19:00 Many Polymor phonuclear leukocytes Very abnormal Final Gram Stain 12/25/2023 11:19:00 Few Gram positive cocci Very abnormal Final Performing Location LABORATORY C - [address] [place] [address] Ordering Provider Test Date Status DAVID HESTER 12/25/2023 11:19:00 Final Observation Date Value Abnormality Reference (Units ) Status Clindamycin 12/25/2023 11:19:00 >=8 Resistant Final Erythromycin susceptibility 12/25/2023 11:19:00 >=8 Resistant Final Oxacillinsusceptibility 12/25/2023 11:19:00 >=4 Resistant Final Oxacillin/Methicillin resist ant Staphylococci are considered clinically resistant to all Beta-lactam (Penicillin and Cephalosporin) antibiotics. Quinolone antibiotics should also not be used for Staphylococci that are Oxacillin resistant. Tetracyclinesusceptibility 12/25/2023 11:19:00 <=1 Merline ceptible Final TMP-SMZ susceptibility 12/25/2023 11:19:00 <=10 Suscept ible Final Vancomycinsusceptibility 12/25/2023 11:19:00 <=0.5 Susce ptible Final Test: Culture, Tissue, Aerob ic and Anaerobic
Specimen Source: Femur, Right
Specimen Type: Bone
Specimen Date: 12/25/2023 11:19 AM
Result Date: 12/30/2023 10:11 AM
Result Status: Final result
Abnormal: Yes
Resulting Lab: [place] [facility] [place]
[address]
[place] [address]

CULTURE

Few Staphylococcus aureus MRSA, This patient may require isolation. (Panic)

No anaerobic growth.

STAIN

Many Polymorphonuclear leukocytes

Few Gram positive cocci

SUSCEPTIBILITY

Staphylococcus
aureus MRSA, This
patient may
require isolation.
METHOD MICROBROTH
DILUTIONS

CLINDAMYCIN >=8 Resistant
ERYTHROMYCIN >=8 Resistant
OXACILLIN >=4 Resistant
TETRACYCLINE <=1 Susceptible
TRIMETH/SULFAMETHOXAZOLE <=10 Susceptible
VANCOMYCIN <=0.5 Susceptible

null Performing Location [facility] [facility] [place] [address] [place] [address]
--- OUTSIDE RECORDS SUMMARY | 2024-01-05 14:54 | External Medical Summary ---
Author Name Unknown Address Unknown Organization K01:LAB[facility]ORY [facility] [place] [facility] [place] [address] [place] [address] Laboratory Report Ordering Provider Test Date Status ADIN LINO 12/24/2023 16:44:00 Final Post-transfusion CBC Observation Date Value Abnormality Reference (Units ) Status WBC, Total 12/24/2023 16:44:00 13.07 Above high normal 4.00-10.80 (K/uL) Final RBC 12/24/2023 16:44:00 3.27 4.50-5.25 (M/uL) Final Hemoglobin 12/24/2023 16:44:00 8.5 Below low normal 14.0-16.8 (g/dL) Final HCT 12/24/2023 16:44:00 26.6 Below low normal 40.0-48.4 (%) Final MCV 12/24/2023 16:44:00 81.3 82.0-99.5 (fL) Final MCH 12/24/2023 16:44:00 26.0 27.0-34.0 (pg) Final MCHC 12/24/2023 16:44:00 32.0 32.0-36.0 (g/dL) Final RDW 12/24/2023 16:44:00 16.5 11.5-15.5 (%) Final Platelets 12/24/2023 16:44:00 685 Above high normal 140-400 (K/uL) Final MPV 12/24/2023 16:44:00 8.8 6.6-11.1 (fL) Final Nucleated erythrocytes/100 leukocytes [Ratio] in Blood by Automated count 12/24/2023 16:44:00 0 <=0 (/100 WBCs) Final Performing Location LABORATORY [facility] [place] - [address] [place] [address]
--- OUTSIDE RECORDS SUMMARY | 2024-01-05 14:54 | External Medical Summary ---
Author Name Unknown Address Unknown Organization K01:[place] [facility] [place] [address] [place] [address] Laboratory Report Ordering Provider Test Date Status RAFA ALEJANDRE 2023 05:38:00 Final Observation Date Value Abnormality Reference (Units ) Status BUN 2023 05:38:00 12 6-20 (mg/dL) Final Creatinine 2023 05:38:00 1.5 Above high normal 0.6-1.2 (mg/dL) Final Glomerular filtration rate/1.73 sq M.predicted [Volume Rate/Area] in Serum, Plasma or Blood by Creatinine-based formula (CKD-EPI) 2023 05:38:00 55 Below low normal >=60 (mL/min) Final eGFR is calculated based on the CKD-EPI 2020 equation Sodium 2023 05:38:00 133 Below low normal 135 -146 (mmol/L) Final Potassium 2023 05:38:00 3.5 3.5-5.1 (m mol/L) Final Cl 2023 05:38:00 98 98-107 (mm ol/L) Final CO2 2023 05:38:00 23 22-32 (mmo l/L) Final Anion gap 2023 05:38:00 12 7-15 (mmol /L) Final Glucose 2023 05:38:00 176 Above high normal 70 -120 (mg/dL) Final Calcium 2023 05:38:00 8.0 Below low normal 8.4 -10.2 (mg/dL) Final Albumin 2023 05:38:00 2.5 Below low normal 3.8 -5.0 (g/dL) Final Phosphate 2023 05:38:00 2.8 2.5-4.8 (m g/dL) Final Performing Location LABORATORY [facility] - [address] [facility] [address]
--- OUTSIDE RECORDS SUMMARY | 2024-01-05 14:54 | External Medical Summary ---
Author Name Unknown Address Unknown Organization K01:[facility] [place] [address] [facility] [place] [address] Laboratory Report Ordering Provider Test Date Status WOO CAMACHO 12/25/2023 23:25:00 Final Please [facility] and fill in the appropriate information:
null Observation Date Value Abnormality Reference (Units ) Status Body temperature 12/25/2023 23:25:00 37.0 (C) Final pH of Venous blood 12/25/2023 23:25:00 7.415 7.320-7.430 (units) Final Carbon dioxide [Partial pressure] in Venous blood 12/25/2023 23:25:00 39.3 Below low normal 40.0-60.0 (mmHg) Final Oxygen [Partial pressure] in Venous blood 12/25/2023 23:25:00 44.6 25.0-50.0 (mmHg) Final Base excess, Capillary 12/25/2023 23:25:00 0.7 -2.0-2.0 (mmol/L) Final Hemoglobin [Mass/volume] in Blood by Oximetry 12/25/2023 23:25:00 7.7 Below low normal 14.0-16.8 (g/dL) Final Oxyhemoglobin, Venous (FO2HB) 12/25/2023 23:25:00 77.2 40.0-85.0 (% total Hgb) Final Carboxyhemoglobin 12/25/2023 23:25:00 2.1 Above high normal <=1.5 (% total Hgb) Final Smokers: 0-9.0 % Methemoglobin 12/25/2023 23:25:00 0.5 <=1.5 (% total Hgb) Final Deoxyhemoglobin/Hemoglobin.t otal in Venous blood 12/25/2023 23:25:00 20.2 (% total Hgb) Baylee l Oxygen content in Venous blood 12/25/2023 23:25:00 8.4 7.0-18.0 (%vol) Final Bicarbonate, Venous, POC (i-STAT) 12/25/2023 23:25:00 24.7 23.0-31.0 (mmol/L) [facility] Performing Location [facility] [place] [facility] [address] [facility] [address]
--- OUTSIDE RECORDS SUMMARY | 2024-01-05 14:54 | External Medical Summary ---
Author Name Unknown Address Unknown Organization K01:[place] [facility] [place] [address] [place] [address] Laboratory Report Ordering Provider Test Date Status NAKUL ESQUIVEL 2023 13:25:00 Final Observation Date Value Abnormality Reference (Units ) Status Heparin, unfractionated level 2023 13:25:00 0.13 Above high normal <0.10 (IU/mL) Final Unfractionated therapeutic r anges for Anti Xa activity:
For Cardiac/Neurologic treatment: 0.3 to 0.6 IU/mL.
For treatment of DVT or Pulmonary Embolism: 0.3 to 0.7 IU/mL. Performing Location [facility] [facility] [place] [address] [place] [address]
--- OUTSIDE RECORDS SUMMARY | 2024-01-05 14:54 | External Medical Summary ---
Author Name Unknown Address Unknown Organization [id number]:[place] [facility] [place] [facility] [address] [facility] [address] [place] [address] Laboratory Report Ordering Provider Test Date Status TASHA MCCAIN 12/22/2023 23:14:00 Final Observation Date Value Abnormality Reference (Units ) Status WBC, Total 12/22/2023 23:14:00 14.20 Above high normal 4.00-10.80 (K/uL) Final RBC 12/22/2023 23:14:00 3.01 4.50-5.25 (M/uL) Final Hemoglobin 12/22/2023 23:14:00 7.8 Below low normal 14.0-16.8 (g/dL) Final HCT 12/22/2023 23:14:00 24.9 Below low normal 40.0-48.4 (%) Final MCV 12/22/2023 23:14:00 82.7 82.0-99.5 (fL) Final MCH 12/22/2023 23:14:00 25.9 27.0-34.0 (pg) Final MCHC 12/22/2023 23:14:00 31.3 32.0-36.0 (g/dL) Final RDW 12/22/2023 23:14:00 16.3 11.5-15.5 (%) Final Platelets 12/22/2023 23:14:00 656 Above high normal 140-400 (K/uL) Final MPV 12/22/2023 23:14:00 8.6 6.6-11.1 (fL) Final Nucleated erythrocytes/100 leukocytes [Ratio] in Blood by Automated count 12/22/2023 23:14:00 0 <=0 (/100 WBCs) Final Performing Location [facility] [place] [address] [place] [address]
--- OUTSIDE RECORDS SUMMARY | 2024-01-05 14:54 | External Medical Summary ---
Author Name Unknown Address Unknown Organization : Laboratory Report Ordering Provider Test Date Status NAKUL ESQUIVEL 12/25/2023 09:01:18 Final Observation Date Value Abnormality Reference (Units ) Status Glucose Point of Care 12/25/2023 09:01:18 130 Above high normal 70-120 (mg/dL) Final Performing Location
--- OUTSIDE RECORDS SUMMARY | 2024-01-05 14:54 | External Medical Summary ---
Author Name Unknown Address Unknown Organization K01:LABORATORY [facility] [place] - [address] [place] [address] Laboratory Report Ordering Provider Test Date Status DAVID HESTER 12/25/2023 11:20:00 Final No anaerobic growth. Observation Date Value Abnormality Reference (Units ) Status Bacteria identified in Specimen by Culture 12/25/2023 11:20:00 [id number]^STAPH YLOCOCCUS AUREUS Very abnormal Final Two colonies Staphylococcus aureus Gram Stain 12/25/2023 11:20:00 Occasional P olymorphonuclear leukocytes Very abnormal Final Gram Stain 12/25/2023 11:20:00 Few Gram positive cocci Very abnormal Final Test: Culture, Tissue, Aerob ic and Anaerobic
Specimen Source: Femur, Right
Specimen Type: Bone
Specimen Date: 12/25/2023 11:20 AM
Result Date: 12/30/2023 9:58 AM
Result Status: Final result
Abnormal: Yes
Resulting Lab: LABORATORY [facility] [place]
[address]
[place] [address]

CULTURE

Two colonies Staphylococcus aureus (Panic)

No anaerobic growth.

STAIN

Occasional Polymorphonuclear leukocytes

Few Gram positive cocci

null Performing Location LABORATORY [facility] [place] - [address] [place] [address]
--- OUTSIDE RECORDS SUMMARY | 2024-01-05 14:54 | External Medical Summary ---
Author Name Unknown Address Unknown Organization K01:[facility] [place] [facility] [address] [place] [address] Laboratory Report Ordering Provider Test Date Status NAKUL ESQUIVEL 2023 21:07:00 Final Observation Date Value Abnormality Reference (Units ) Status Heparin, unfractionated level 2023 21:07:00 0.29 Above high normal <0.10 (IU/mL) Final Unfractionated therapeutic r anges for Anti Xa activity:
For Cardiac/Neurologic treatment: 0.3 to 0.6 IU/mL.
For treatment of DVT or Pulmonary Embolism: 0.3 to 0.7 IU/mL. Performing Location [facility] [place] [address] [place] [address]
--- OUTSIDE RECORDS SUMMARY | 2024-01-05 14:54 | External Medical Summary ---
Author Name Unknown Address Unknown Organization K01:LABORATORY [facility] [place] - [address] [place] [address] Laboratory Report Ordering Provider Test Date Status DAVID HESTER 12/22/2023 18:17:00 Preliminary Observation Date Value Abnormality Reference (Units) Status COMMENT 12/22/2023 18:17:00 The specimen used for this testing had ID confirmed via the Specimen Identification Confirmation/Waiver process. Preliminary COMMENT 12/22/2023 18:17:00 Preliminary Performing Location LABORATORY [facility] [place] - [address] [place] [address]
--- OUTSIDE RECORDS SUMMARY | 2024-01-05 14:54 | External Medical Summary ---
Author Name Unknown Address Unknown Organization K01:[facility] [place] [facility] [address] [facility] [address] [facility] [address] [place] [address] Laboratory Report Ordering Provider Test Date Status MAHSA HIGH 2023 05:38:00 Final Get Heparin, unfractionated (Xa) level 6 hours after start of infusion and 6 hours after each dose adjustment Observation Date Value Abnormality Reference (Units ) Status Heparin, unfractionated level 2023 05:38:00 <0.10 <0.10 (IU/mL) Final Unfractionated therapeutic r anges for Anti Xa activity:
For Cardiac/Neurologic treatment: 0.3 to 0.6 IU/mL.
For treatment of DVT or Pulmonary Embolism: 0.3 to 0.7 IU/mL. Performing Location [facility] [place] - [facility] [address] [place] [address]
--- OUTSIDE RECORDS SUMMARY | 2024-01-05 14:54 | External Medical Summary ---
Author Name Unknown Address Unknown Organization K01:LABORATORY [facility] [place] - [address] [place] [address] Laboratory Report Ordering Provider Test Date Status NAKUL ESQUIVEL 12/25/2023 06:55:00 Final Observation Date Value Abnormality Reference (Units ) Status Vancomycin, level 12/25/2023 06:55:00 22.5 10 .0-40.0 (ug/mL) Final Performing Location LABORATORY [facility] - [address] [place] [address]
--- OUTSIDE RECORDS SUMMARY | 2024-01-05 14:54 | External Medical Summary ---
Author Name Unknown Address Unknown Organization K01:LABORATORY [facility] - [address] [place] [address] Laboratory Report Ordering Provider Test Date Status SOM ESQUIVELRI 12/26/2023 06:43:00 Final Observation Date Value Abnormality Reference (Units ) Status C4 12/26/2023 06:43:00 26 10-40 (mg/ dL) Final Performing Location LABORATORY [facility] - [address] [place] [address]
--- OUTSIDE RECORDS SUMMARY | 2024-01-05 14:54 | External Medical Summary ---
Author Name Unknown Address Unknown Organization K01:LAB[facility]ATORY [facility] [place] - [facility] [place] [address] [place] [address] Laboratory Report Ordering Provider Test Date Status NAKUL ESQUIVEL 12/22/2023 23:14:00 Final Observation Date Value Abnormality Reference (Units ) Status Heparin, unfractionated level 12/22/2023 23:14:00 <0.10 <0.10 (IU/mL) Final Unfractionated therapeutic r anges for Anti Xa activity:
For Cardiac/Neurologic treatment: 0.3 to 0.6 IU/mL.
For treatment of DVT or Pulmonary Embolism: 0.3 to 0.7 IU/mL. Performing Location LABORATORY [facility] [place] - [address] [place] [address]
--- OUTSIDE RECORDS SUMMARY | 2024-01-05 14:54 | External Medical Summary | Summary of Care ---
Author Name Unknown Organization [facility] Address [address] [place] [address] Phone [phone] Care Team Providers Care Extractor Machine Operator Name Role Phone Eamon Still MD Primary Care Provide r Reason for Visit * Reason Onset Date Comments Hospital Follow-Up 12/25/2023 [facility] 6-8 wk [place] f/u needed. No appt avail. Please assist patient with scheduling. Thank you. Encounter Details Date Type Department Care Team (Late st Contact Info) Description 12/25/2023 Telephone Infectious Disease, [place] [address] [place] [address] Gary Grey MD [address] [place] [address] Hospital Follow-Up ([facility] 12/24/23 6-8 wk... Allergies No known active allergiesdocumented as of this encounter (statuses as of 12/25/2023) Medications Medication Sig Dispensed Refills Start Date [...] 90 Tablet 2 11/16/2023 Suspended Additional Information CPAP every night at bedtime. 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 Allergic rhinitis 08/06/2017 documented as of this encounter (statuses as of 12/25/2023) Immunizations Name Administration Dates Next Due COVID-19 [...] money to buy more. Never true 10/29/19 Within the past 12 months, t he [...] on file documented as of this encounter Functional Status Functional Status Response [...] No 12/21/2023 documented as of this encounter Miscellaneous Notes * Telephone Encounter - Genny Cramer OSA - 12/25/2023 5:46 AM EDT [facility] [place] 12/24/23 6-8 wk [place] f/u needed. No appt avail. Please assist patient with scheduling. Thank you. Kimmie Barrera 12/21/2023 9:39 PM Admission Description: 57 year old male Department: [facility] 6 IP [facility] [place] Message Patient Name: KIMMIE BARRERA([id number]) Sex: Male : 1965 PCP: EAMON STILL [facility] Types of orders made on 12/24/2023: Blood Bank - Prepare Product, Blood Bank - Transfuse Product, IP Post Discharge , Lab, M edications Order Date:12/24/2023 Ordering User:GARY GREY [[id number]] Attending Provider:Rohit Metzger MD [[id number]] Authorizing Provider: Gary Grey MD [[id number]] Department:[address][[id number]] Order Specific Information Order: RETURN APPT [CUSTOM: [id number]] Order #: [id number]: [id number] Priority: Routine Class: Nursing Unit Department (Single Entry) -> Infectious Disease Appt Needed Within: (Specify # of Days, Weeks, Months) Cmt: 6-8 weeks Provider -> GARY GREY Tests Needed Prior to Appt -> CT abd/pelvis w contrast Released on: 12/24/2023 5:22 PM Priority: Routine Class: Nursing Unit Department (Single Entry) -> Infectious Disease Appt Needed Within: (Specify # of Days, Weeks, Months) Cmt: 6-8 weeks Provider -> GARY GREY Tests Nee ded Prior to Appt -> CT abd/pelvis w contrast Released on: 12/24/2023 5:22 PM documented in this encounter Plan of Treatment Upcoming Encounters Date Type Department Care Team (Late st Contact Info) Description 01/04/2024 3:30 PM EDT Office Visit Orthopaedics, [place] [address] [place] [address] Sebas Sheridan MD [address] [place] [address] 03/15/2024 1:20 PM EDT Office Visit Sleep Disorders Ctr [facility] [address] [facility] [place] [phone] Madai Rousseau DO [address] [facility] [place] [address] 03/17/2024 10:40 AM EDT Office Visit Family Medicine [address] [place] [phone] Eamon Still MD [address] [place] [address] [place] [address] Scheduled Procedures Name Priority Associated Diagnoses Date/Ti me PARTIAL REMOVAL BONE FEMUR P ROXIMAL TIBIA FIBULA MRSA bacteremia Health Maintenance Due Date Last Done Comments Pneumococcal Vaccine: Pediatrics (0 to 5 Years) and At-Risk Patients (6 to 64 Years) (1 of 2 - PCV) 1972 HIV Screening 1981 Hepatitis B (1 of 3 - 19+ 3-dose series) 1985 Cologuard 12/24/2011 Fecal Occult Blood Test 12/24/2011 Sigmoidoscopy 12/24/2011 Depression Screening 08/23/2021 08/23/2020 Albumin/Creatinine Ratio 11/10/2024 11/10/2021, 12/0 05/2020 GFR 2024 12/24/2023, 04/0 11/2023, 12/22/2023, Additional history exists Diabetes Screening 2026 12/24/2023, 0 2023, 12/22/2023, Additional history exists Lipid Panel 07/09/2028 07/09/2023, [...] Not on filedocumented as of this encounter Advance Directives Latest Code Status on File Code Status Date Activated Date Inactivated Comments Full Code 12/21/2023 10:35 PM This order reflects the patients wishes and were consensually agreed upon. Question Answer Comments Discussion of Advance Directives occurred with: Patient Does the patient have a Living Will? No Does the patient have Health Care Power of Ornamental Ironworking Supervisor? No Care Teams Extractor Machine Operator Relationship Specialty Start Date End Date Eamon Still MD [address] [place] [address] [place] [address] PCP - General Family Medicine 10/30/23 documented as of this encounter
--- OUTSIDE RECORDS SUMMARY | 2024-01-05 14:54 | External Medical Summary | Summary of Care ---
Author Name Unknown Organization [facility] Address [address] [facility] [place] [address] Phone [phone] Care Team Providers Care Assembler Wet Wash Name Role Phone Raul Still MD Primary Care Provide r Encounter Details Date Type Department Care Team (Late st Contact Info) Description 12/21/2023 Result Scan Unspecified Department Rogelio Zamora, DO [address] [place] [address] <No scans attached> Allergies No known active allergiesdocumented as of this encounter (statuses as of 2023) Medications Medication Sig Dispensed Refills Start Date [...] as of this encounter (statuses as of 2023) Active Problems Problem Noted Date Diagnosed Date [...] as of this encounter (statuses as of 2023) Resolved Problems Problem Noted Date Diagnosed Date Resolved Date Acute bilateral low back kaity n without sciatica 08/05/2016 08/06/2017 BMI 34.0-34.9,adult 04/21/2013 08/23/20 19 Dyslipidemia, goal to be determined 12/16/2004 12/31/2010 HYPERTENSION NOS 08/08/2009 Overview: Modified per HTN protocol #16. Allergic rhinitis 08/06/2017 documented as of this encounter (statuses as of 2023) Immunizations Name Administration Dates Next Due COVID-19 [...] 01/04/2024 3:30 PM EDT Office Visit Orthopaedics, [place] [address] [place] [address] Sebas Sheridan MD [address] [place] [address] 03/15/2024 1:20 PM EDT Office Visit Sleep Disorders Ctr [facility] [address] [place] [phone] Madai Rousseau DO [address] [place] [address] 03/17/2024 10:40 AM EDT Office Visit Family Medicine [address] [place] [phone] Raul Still MD [address] [place] [address] [place] [address] Health Maintenance Due Date Last Done Comments Pneumococcal Vaccine: Pediatrics (0 to 5 Years) and At-Risk Patients (6 to 64 Years) (1 of 2 - PCV) 1972 HIV Screening 1981 Hepatitis B (1 of 3 - 19+ 3-dose series) 1985 Cologuard 12/24/2011 Fecal Occult Blood Test 12/24/2011 Sigmoidoscopy 12/24/2011 Depression Screening 08/23/2021 08/23/2020 Albumin/Creatinine Ratio 11/10/2024 11/10/2021, 05/2020 GFR 12/22/2024 2023, 10/2023, 12/21/2023, Additional history exists Diabetes Screening 12/22/2026 2023, 0 12/22/2023, 12/22/2023, Additional history exists Lipid Panel 07/09/2028 [...] Procedure Name Priority Date/Time Associated Diagnosis Comments ECHOCARDIOLOGY SCANNED RESULT 12/21/2023 documented in this encounter Results * ECHOCARDIOLOGY SCANNED RESULT (12/21/2023) 12/21/2023 Rogelio Zamora DO ECHOCARDIOLOGY documented in this encounter Advance Directives Latest Code Status on File Code Status Date Activated Date Inactivated Comments Full Code 12/21/2023 10:35 PM This order reflects the patients wishes and were consensually agreed upon. Question Answer Comments Discussion of Advance Directives occurred with: Patient Does the patient have a Living Will? No Does the patient have Health Care Power of Russian Language Professor? No Care Teams Assembler Wet Wash Relationship Specialty Start Date End Date Raul Still MD [address] [place] [address] [place] [address] PCP - General Family Medicine 10/30/23 documented as of this encounter
--- OUTSIDE RECORDS SUMMARY | 2024-01-05 14:55 | External Medical Summary ---
Author Name Unknown Address Unknown Organization K01:LAB[facility] [place] [address] [place] [address] Laboratory Report Ordering Provider Test Date Status MAHSA HIGH 12/21/2023 22:46:00 Final Anticoagulation may affect t esting. Refer to [facility] Test Catalog for a list of effects. Observation Date Value Abnormality Reference (Units ) Status aPTT panel - Platelet poor plasma 12/21/2023 22:46:00 41 Above high normal 21-38 (seconds) Final Performing Location LAB[facility] [place] [address] [place] [address]
--- OUTSIDE RECORDS SUMMARY | 2024-01-05 14:55 | External Medical Summary ---
Author Name Unknown Address Unknown Organization K01:LABORATORY [facility] [place] - [address] [place] [address] Laboratory Report Ordering Provider Test Date Status MAHSA HIGH 12/22/2023 00:06:53 Final Observation Date Value Abnormality Reference (Units) Status Bacteria identified in Specimen by Culture 12/22/2023 00:06:53 No significant growth Final Test: Culture, Urine, Quanti tative
Specimen Source: Urine, Clean Catch
Specimen Type: Urine
Specimen Date: 12/22/2023 12:06 AM
Result Date: 2023 7:17 AM
Result Status: Final result
Resulting Lab: LAB[facility] [place]
[address]
[place] [address]

CULTURE

No significant growth

null Performing Location LABORATORY [facility] [place] - [address] [facility] [address]
--- OUTSIDE RECORDS SUMMARY | 2024-01-05 14:55 | External Medical Summary | Summary of Care ---
Author Name Unknown Organization [facility] Address [address] [place] [address] Phone [phone] Care Team Providers Care Pediatric Cns Name Role Phone Raul Still MD Primary Care Provide r Encounter Details Date Type Department Care Team (Latest Contact Info) Description 12/17/2023 2:20 PM EDT - 12/17/2023 2:24 PM EDT Hospital Encounter Radiology Film File [address] [place], [place] [phone] Discharge Disposition: Home - Self Care Allergies [...] 01/04/2024 3:30 PM EDT Office Visit Orthopaedics, [place] [address] [place] [address] Sebas Sheridan MD [address] [place] [address] 03/15/2024 1:20 PM EDT [facility] [address] [place] [phone] Madai Rousseau DO [address] [place] [address] 03/17/2024 10:40 AM EDT Office Visit Family Medicine [address] [place] [phone] Raul Still MD [address] [place] [address] [place] [address] Scheduled Procedures Name Priority Associated Diagnoses Date/Ti [...] CT (IMAGES ONLY, NO REPORT) Routine 12/17/2023 2:20 PM EDT documented in this encounter Results * RADIOLOGY EXAM - CT (IMAGES ONLY, NO REPORT) (12/17/2023 2:20 PM EDT) 12/17/2023 2:17 PM EDT Narrative Scheduling, Silent - 12/22/2023 12:08 AM EDT This is an imaging study [...] the patient have Health Care Power of Certified Nuclear Medicine Technologist? No Care Teams Pediatric Cns Relationship Specialty Start Date End Date Raul Still MD [address] [place] [address] [place] [phone] PCP - General Family Medicine 10/30/23 documented as of this encounter
--- OUTSIDE RECORDS SUMMARY | 2024-01-05 14:55 | External Medical Summary ---
Author Name Unknown Address Unknown Organization K01:LABORATORY [facility] - [address] [place] [address] Laboratory Report Ordering Provider Test Date Status MAHSA HIGH 12/21/2023 22:46:00 Final Observation Date Value Abnormality Reference (Units ) Status Vancomycin, level 12/21/2023 22:46:00 29.6 10 .0-40.0 (ug/mL) Final Performing Location LABORATORY [facility] - [address] [place] [address]
--- OUTSIDE RECORDS SUMMARY | 2024-01-05 14:55 | External Medical Summary | Summary of Care ---
Author Name Unknown Organization [facility] Address [address] [place] [address] Phone [phone] Care Team Providers Care Pca Name Role Phone Raul Still MD Primary Care Provide r Encounter Details Date Type Department Care Team (Late st Contact Info) Description 12/17/2023 Orders Only Unspecified Department Montrell Carmen PA-C [address] [facility] [place] [address] Allergies No known active allergiesdocumented as of [...] Active Problems Problem Noted Date Diagnosed Date DICK (acute kidney injury) 12/21/2023 Cavitary lesion [...] mRNA, LNP-s, No Pre serve, 2-Dose Series ([employer]) 12/20/2021,05/21/2021,10/02/2020,2019 COVID-19, MRNA-LNP, 23-24, P F, 30 [...] EDT Office Visit Orthopaedics, [place] [address] [place] [address] Sebas Sheridan MD [address] [place] [address] 03/15/2024 1:20 PM EDT Office Visit Sleep Disorders Ctr [facility] [address] [place] [phone] Madai Rousseau DO [address] [place] [address] 03/17/2024 10:40 AM EDT Office Visit Family Medicine [address] [place] [phone] Raul Still MD [address] [place] [address] [place] [address] Scheduled Procedures Name Priority Associated Diagnoses Date/Ti [...] 08/23/2020 Albumin/Creatinine Ratio 11/10/2024 11/10/2021, 05/2020 GFR 12/20/2024 12/21/2023, 11/20, 07/09/2023, Additional history exists Diabetes Screening 12/20/2026 12/21/2023, 0 12/16/2023, 07/09/2023, Additional history exists Lipid Panel 07/09/2028 07/09/2023, [...] CT (IMAGES ONLY, NO REPORT) Routine 12/17/2023 7:40 PM EDT documented in this encounter Results * RADIOLOGY EXAM - CT (IMAGES ONLY, NO REPORT) (12/17/2023 7:40 PM EDT) 12/17/2023 7:38 PM EDT Narrative Scheduling, Silent - 12/22/2023 12:12 AM EDT This is an imaging study [...] the patient have Health Care Power of Nut Packer? No Care Teams Pca Relationship Specialty Start Date End Date Raul Still MD [address] [place] [address] [place] [phone] PCP - General Family Medicine 10/30/23 documented as of this encounter
--- OUTSIDE RECORDS SUMMARY | 2024-01-05 14:55 | External Medical Summary | Summary of Care ---
Author Name Unknown Organization [facility] Address [address] [facility] [place] [address] Phone [phone] Care Team Providers Care Back Hoe Operator Name Role Phone Raul Still MD Primary Care Provide r Encounter Details Date Type Department Care Team (Late st Contact Info) Description 12/17/2023 Result Scan Unspecified Department <No scans attached> Allergies No known active [...] 01/04/2024 3:30 PM EDT Office Visit Orthopaedics, [place] [address] [place] [address] Sebas Sheridan MD [address] [place] [address] 03/15/2024 1:20 PM EDT Office Visit Sleep Disorders Ctr [facility] [address] [place] [phone] Madai Rousseau, [address] [place] [address] 03/17/2024 10:40 AM EDT Office Visit Family Medicine [address] [phone] Ralu Still MD [address] [place] [address] [place] [address] Scheduled Procedures Name Priority Associated Diagnoses Date/Ti [...] 08/23/2020 Albumin/Creatinine Ratio 11/10/2024 11/10/2021, 1205/2020 GFR 12/21/2024 12/22/2023, 040 09/2023, 12/16/2023, Additional history exists Diabetes Screening 12/21/2026 12/22/2023, 0 12/21/2023, 12/16/2023, Additional history exists Lipid Panel 07/09/2028 07/09/2023, 02/, 08/28/2020, Additional history exists DTaP,Tdap,and Td Vaccines [...] Name Priority Date/Time Associated Diagnosis Comments RADIOLOGY SCANNED RESULT 12/17/2023 documented in this encounter Results * RADIOLOGY SCANNED RESULT (12/17/2023) 12/17/2023 No Physician Data Unknown DIAGNOSTIC RAD IOLOGY SERVICES documented in this encounter Advance Directives Latest Code Status on File Code Status Date Activated Date Inactivated Comments Full Code 12/21/2023 10:35 PM This order reflects the patients wishes and were consensually agreed upon. Question Answer Comments Discussion of Advance Directives occurred with: Patient Does the patient have a Living Will? No Does the patient have Health Care Power of Dental Prosthetist? No Care Teams Back Hoe Operator Relationship Specialty Start Date End Date Raul Still MD [address] [place] [address] [place] [address] PCP - General Family Medicine 10/30/23 documented as of this encounter
--- OUTSIDE RECORDS SUMMARY | 2024-01-05 14:55 | External Medical Summary ---
Author Name Unknown Address Unknown Organization [id number]:[facility] [place] [facility] [address] [facility] [address] [place] [address] Laboratory Report Ordering Provider Test Date Status MAHSA HIGH 12/22/2023 05:52:00 Final Observation Date Value Abnormality Reference (Units ) Status WBC, Total 12/22/2023 05:52:00 13.85 Above high normal 4.00-10.80 (K/uL) Final RBC 12/22/2023 05:52:00 2.52 4.50-5.25 (M/uL) Final Hemoglobin 12/22/2023 05:52:00 6.6 Below low normal 14.0-16.8 (g/dL) Final HCT 12/22/2023 05:52:00 20.7 Below low normal 40.0-48.4 (%) Final MCV 12/22/2023 05:52:00 82.1 82.0-99.5 (fL) Final MCH 12/22/2023 05:52:00 26.2 27.0-34.0 (pg) Final MCHC 12/22/2023 05:52:00 31.9 32.0-36.0 (g/dL) Final RDW 12/22/2023 05:52:00 15.1 11.5-15.5 (%) Final Platelets 12/22/2023 05:52:00 590 Above high normal 140-400 (K/uL) Final MPV 12/22/2023 05:52:00 8.9 6.6-11.1 (fL) Final Nucleated erythrocytes/100 leukocytes [Ratio] in Blood by Automated count 12/22/2023 05:52:00 0 <=0 (/100 WBCs) Final Performing Location [facility] [place] [address] [place] [address]
--- OUTSIDE RECORDS SUMMARY | 2024-01-05 14:55 | External Medical Summary ---
Author Name Unknown Address Unknown Organization [id number]:[facility] [place] [address] [place] [address] Laboratory Report Ordering Provider Test Date Status SERG HIGHLARRY 12/21/2023 22:46:00 Final Observation Date Value Abnormality Reference (Units ) Status ABO 12/21/2023 22:46:00 A Final RH 12/21/2023 22:46:00 Positive Final Performing Location [facility] - [address] [place] [address]
--- OUTSIDE RECORDS SUMMARY | 2024-01-05 14:55 | External Medical Summary | Summary of Care ---
Author Name Unknown Organization [facility] Address [address] [facility] [address] Phone [phone] Care Team Providers Care Tipple Worker Name Role Phone Raul Still MD Primary Care Provide r Encounter Details Date Type Department Care Team (Late st Contact Info) Description 12/22/2023 Population Health External Data Unspecified Department Allergies No known active allergiesdocumented as of [...] (15 years old or older) No 12/21/19 24 Cognitive Status Response Date of Assessm ent Because of a physical, menta l, or emotional condition, do you have serious difficulty concentrating, remembering, or making decisions? (5 years old or older) No 12/21/2023 documented as of this encounter Plan of Treatment Upcoming Encounters Date Type Department Care Team (Late st Contact Info) Description 01/04/2024 3:30 PM EDT Office Visit Orthopaedics, [place] [address] [place] [address] Sebas Sheridan MD [address] [place] [address] 03/15/2024 1:20 PM EDT Office Visit [facility] Disorders Ctr [facility] [place] [phone] Madai Rousseau DO [address] [place] [address] 03/17/2024 10:40 AM EDT Office Visit Family Medicine [address] [place] [phone] Raul Still MD [address] [place] [address] [place] [address] Scheduled Procedures Name Priority Associated Diagnoses Date/Ti [...] Albumin/Creatinine Ratio 11/10/2024 11/10/2021, 12/0 05/2020 GFR 12/21/2024 12/22/2023, 04/0 09/2023, 12/16/2023, Additional history exists Diabetes Screening [...] the patient have Health Care Power of Arts Manager? No Care Teams Tipple Worker Relationship Specialty Start Date End Date Raul Still MD [address] [place] [address] [place] [phone] PCP - General Family Medicine 10/30/23 documented as of this encounter
--- OUTSIDE RECORDS SUMMARY | 2024-01-05 14:55 | External Medical Summary | Summary of Care ---
Author Name Unknown Organization [facility] Address [address] [place] [address] Phone [phone] Care Team Providers Care Collarette Separator Name Role Phone Raul Still MD Primary Care Provide r Encounter Details Date Type Department Care Team (Late st Contact Info) Description 12/17/2023 Orders Only Unspecified Department Montrell Carmen PA-C [address] [facility] [place] [address] Allergies No known active allergiesdocumented [...] mRNA, LNP-s, No Pre serve, 2-Dose Series (Parental Health) 12/20/2021,05/21/2021,10/02/2020,2019 COVID-19, MRNA-LNP, 23-24, P F, 30 [...] EDT Office Visit Orthopaedics, [place] [address] [place] [address] Sebas Sheridan MD [address] [place] [address] 03/15/2024 1:20 PM EDT Office Visit Sleep Disorders Ctr [facility] [address] [place] [phone] Madai Rousseau DO [address] [place] [address] 03/17/2024 10:40 AM EDT Office Visit Family Medicine [address] [phone] Raul Still MD [address] [place] [address] [place] [address] Scheduled Procedures Name Priority Associated Diagnoses Date/Ti [...] the patient have Health Care Power of Household Appliance Repairer? No Care Teams Collarette Separator Relationship Specialty Start Date End Date Raul Still MD [address] [place] [address] [place] [phone] PCP - General Family Medicine 10/30/23 documented as of this encounter
--- OUTSIDE RECORDS SUMMARY | 2024-01-05 14:55 | External Medical Summary ---
Author Name Unknown Address Unknown Organization [id number]:[facility] [place] [address] [place] [address] Laboratory Report Ordering Provider Test Date Status MAHSA HIGH 12/21/2023 22:46:00 Final Observation Date Value Abnormality Reference (Units ) Status Troponin T 12/21/2023 22:46:00 14 <=22 (ng/ L) Final Performing Location [facility] - [address] [place] [address]
--- OUTSIDE RECORDS SUMMARY | 2024-01-05 14:55 | External Medical Summary | Summary of Care ---
Author Name Unknown Organization [facility] Address [address] [place] [address] Phone [phone] Care Team Providers Care Studio Sales Associate Name Role Phone Raul Still MD Primary Care Provide r Encounter Details Date Type Department Care Team (Late st Contact Info) Description 12/17/2023 Orders Only Unspecified Department Montrell Carmen PA-C [address] [facility] [place] [address] Allergies No known active allergiesdocumented [...] mRNA, LNP-s, No Pre serve, 2-Dose Series ([employer]) 12/20/2021,05/21/2021,10/02/2020,2019 COVID-19, MRNA-LNP, 23-24, P F, 30 [...] EDT Office Visit Orthopaedics, [place] [address] [place] [address] Sebas Sheridan MD [address] [place] [address] 03/15/2024 1:20 PM EDT Office Visit Sleep Disorders Ctr [facility] [address] [place] [phone] Madai Rousseau DO [address] [place] [address] 03/17/2024 10:40 AM EDT Office Visit Family Medicine [address] [place] [phone] Raul Still MD [address] [place] [address] [place] [address] Scheduled Procedures Name Priority Associated Diagnoses Date/Ti [...] the patient have Health Care Power of Industrial Hire Sales Assistant? No Care Teams Studio Sales Associate Relationship Specialty Start Date End Date aRul Still MD [address] [place] [address] [place] [phone] PCP - General Family Medicine 10/30/23 documented as of this encounter
--- OUTSIDE RECORDS SUMMARY | 2024-01-05 14:55 | External Medical Summary ---
Author Name Unknown Address Unknown Organization [id number]:[facility] [place] - [facility] [address] [facility] [address] [facility] [address] Laboratory Report Ordering Provider Test Date Status RAFA ALEJANDRE 12/22/2023 14:27:00 Final Please draw AFTER blood martinez sfusion Observation Date Value Abnormality Reference (Units ) Status WBC, Total 12/22/2023 14:27:00 14.10 Above high normal 4.00-10.80 (K/uL) Final RBC 12/22/2023 14:27:00 2.85 4.50-5.25 (M/uL) Final Hemoglobin 12/22/2023 14:27:00 7.5 Below low normal 14.0-16.8 (g/dL) Final HCT 12/22/2023 14:27:00 23.2 Below low normal 40.0-48.4 (%) Final MCV 12/22/2023 14:27:00 81.4 82.0-99.5 (fL) Final MCH 12/22/2023 14:27:00 26.3 27.0-34.0 (pg) Final MCHC 12/22/2023 14:27:00 32.3 32.0-36.0 (g/dL) Final RDW 12/22/2023 14:27:00 15.9 11.5-15.5 (%) Final Platelets 12/22/2023 14:27:00 609 Above high normal 140-400 (K/uL) Final MPV 12/22/2023 14:27:00 8.8 6.6-11.1 (fL) Final Nucleated erythrocytes/100 leukocytes [Ratio] in Blood by Automated count 12/22/2023 14:27:00 0 <=0 (/100 WBCs) Final Performing Location [facility] [place] - [address] [place] [address]
--- OUTSIDE RECORDS SUMMARY | 2024-01-05 14:55 | External Medical Summary ---
Author Name Unknown Address Unknown Organization [id number]:[facility]ORY [facility] [place] [facility] - [address] [place] [address] Laboratory Report Ordering Provider Test Date Status SERG HIGHLARRY 12/21/2023 22:46:00 Final Observation Date Value Abnormality Reference (Units ) Status ABO 12/21/2023 22:46:00 A Final RH 12/21/2023 22:46:00 Positive Final RED BLOOD CELL ANTIBODY SCREEN 12/21/2023 22:46:00 Negative Final SPECIMEN EXPIRATION DATE 12/21/2023 22:46:00 12/24/2023 23:59 Final Performing Location LAB[facility]ORY [facility] [place] [facility] - [address] [place] [address]
--- OUTSIDE RECORDS SUMMARY | 2024-01-05 14:55 | External Medical Summary ---
Author Name Unknown Address Unknown Organization K01:[facility]ATORY [facility] - [address] [facility] [address] [place] [address] Laboratory Report Ordering Provider Test Date Status MAHSA HIGH 12/21/2023 22:46:00 Final Observation Date Value Abnormality Reference (Units ) Status Magnesium 12/21/2023 22:46:00 1.8 1.5-2.6 (m g/dL) Final Performing Location [facility] - [address] [place] [address]
--- OUTSIDE RECORDS SUMMARY | 2024-01-05 14:55 | External Medical Summary ---
Author Name Unknown Address Unknown Organization K01:[facility]ATORY [facility] [place] - [address] [place] [address] Laboratory Report Ordering Provider Test Date Status MAHSA HIGH 12/21/2023 22:49:00 Final Observation Date Value Abnormality Reference (Units ) Status Bacteria identified in Specimen by Culture 12/21/2023 22:49:00 No growth Final Test: Culture, Blood
Sp ecimen Source: Blood, Venous
Specimen Type: Blood
Specimen Date: 12/21/2023 10:49 PM
Result Date: 12/26/2023 11:01 PM
Result Status: Final result
Resulting Lab: LAB[facility]ATORY [facility] [place]
[address]
[place] [address]

CULTURE

No growth

null Performing Location LAB[facility]ATORY [facility] [place] - [address] [place] [address]
--- OUTSIDE RECORDS SUMMARY | 2024-01-05 14:55 | External Medical Summary ---
Author Name Unknown Address Unknown Organization : Laboratory Report Ordering Provider Test Date Status NAKUL ESQUIVEL 12/22/2023 14:04:31 Final Observation Date Value Abnormality Reference (Units ) Status Glucose Point of Care 12/22/2023 14:04:31 108 70-120 (mg/dL) Final Performing Location
--- OUTSIDE RECORDS SUMMARY | 2024-01-05 14:55 | External Medical Summary ---
Author Name Unknown Address Unknown Organization K01:[facility]ORY [facility] [place] - [address] [place] [address] Laboratory Report Ordering Provider Test Date Status MAHSA HIGH 12/21/2023 22:46:00 Final Observation Date Value Abnormality Reference (Units ) Status Heparin, unfractionated level 12/21/2023 22:46:00 <0.10 <0.10 (IU/mL) Final Unfractionated therapeutic r anges for Anti Xa activity:
For Cardiac/Neurologic treatment: 0.3 to 0.6 IU/mL.
For treatment of DVT or Pulmonary Embolism: 0.3 to 0.7 IU/mL. Performing Location LAB[facility]ORY [facility] [place] - [address] [place] [address]
--- OUTSIDE RECORDS SUMMARY | 2024-01-05 14:55 | External Medical Summary ---
Author Name Unknown Address Unknown Organization K01:[facility] [place] - [facility] [address] [facility] [address] [place] [address] Laboratory Report Ordering Provider Test Date Status MAHSA HIGH 12/22/2023 05:52:00 Final Observation Date Value Abnormality Reference (Units ) Status BUN 12/22/2023 05:52:00 12 6-20 (mg/dL) Final Creatinine 12/22/2023 05:52:00 1.4 Above high normal 0.6-1.2 (mg/dL) Final Glomerular filtration rate/1.73 sq M.predicted [Volume Rate/Area] in Serum, Plasma or Blood by Creatinine-based formula (CKD-EPI) 12/22/2023 05:52:00 61 >=60 (mL/min) Final eGFR is calculated based on the CKD-EPI 2020 equation Sodium 12/22/2023 05:52:00 131 Below low normal 135 -146 (mmol/L) Final Potassium 12/22/2023 05:52:00 3.5 3.5-5.1 (m mol/L) Final Cl 12/22/2023 05:52:00 97 Below low normal 98- 107 (mmol/L) Final CO2 12/22/2023 05:52:00 25 22-32 (mmo l/L) Final Anion gap 12/22/2023 05:52:00 9 7-15 (mmol /L) Final Glucose 12/22/2023 05:52:00 124 Above high normal 70 -120 (mg/dL) Final Calcium 12/22/2023 05:52:00 8.2 Below low normal 8.4 -10.2 (mg/dL) Final Performing Location [facility]ORY [facility] [place] - [address] [place] [address]
--- OUTSIDE RECORDS SUMMARY | 2024-01-05 14:55 | External Medical Summary | Summary of Care ---
Author Name Unknown Organization [facility] Address [address] [place] [address] Phone [phone] Care Team Providers Care Tile Setter Apprentice Name Role Phone Raul Still MD Primary Care Provide r Encounter Details Date Type Department Care Team (Late st Contact Info) Description 12/17/2023 Orders Only Unspecified Department Montrell Carmen PA-C [address] [facility] [place] [address] Allergies No known active allergiesdocumented [...] mRNA, LNP-s, No Pre serve, 2-Dose Series ([employer]) 12/20/2021,05/21/2021,10/02/2020,2019 COVID-19, MRNA-LNP, 23-24, P F, 30 [...] EDT Office Visit Orthopaedics, [place] [address] [place] [address] Sebas Sheridan MD [address] [place] [address] 03/15/2024 1:20 PM EDT Office Visit Sleep Disorders Ctr [facility] [address] [place] [phone] Madai Rousseau DO [address] [place] [address] 03/17/2024 10:40 AM EDT Office Visit Family Medicine [address] [place] [phone] Raul Still MD [address] [place] [address] [place] [address] Scheduled Procedures Name Priority Associated Diagnoses Date/Ti [...] Date/Time Associated Diagnosis Comments RADIOLOGY EXAM - GENERAL RAD (IMAGES ONLY,NO REPORT) Routine 12/17/2023 1:35 PM EDT documented in this encounter Results * RADIOLOGY EXAM - GENERAL RAD (IMAGES ONLY,NO REPORT) (12/17/2023 1:35 PM EDT) 12/17/2023 1:35 PM EDT Narrative Scheduling, Silent - 12/22/2023 12:10 AM EDT This is an imaging study not interpreted or resulted by a [facility] or [facility] contracted radiologist. Montrell Carmen PA-C RADIOLOGY (RAD GENER AL) documented in this encounter Advance Directives Latest Code Status on File Code Status Date Activated Date Inactivated Comments Full Code 12/21/2023 10:35 PM This order reflects the patients wishes and were consensually agreed upon. Question Answer Comments Discussion of Advance Directives occurred with: Patient Does the patient have a Living Will? No Does the patient have Health Care Power of Specialist Employee Labor Relations? No Care Teams Tile Setter Apprentice Relationship Specialty Start Date End Date Raul Still MD [address] [place] [address] [place] [phone] PCP - General Family Medicine 10/30/23 documented as of this encounter
--- OUTSIDE RECORDS SUMMARY | 2024-01-05 14:55 | External Medical Summary ---
Author Name Unknown Address Unknown Organization K01[facility] [place] [facility] [address] [facility] [address] [place] [address] Laboratory Report Ordering Provider Test Date Status MAHSA HIGH 12/21/2023 22:46:00 Final Observation Date Value Abnormality Reference (Units ) Status BUN 12/21/2023 22:46:00 13 6-20 (mg/dL) Final Creatinine 12/21/2023 22:46:00 1.3 Above high normal 0.6-1.2 (mg/dL) Final Glomerular filtration rate/1.73 sq M.predicted [Volume Rate/Area] in Serum, Plasma or Blood by Creatinine-based formula (CKD-EPI) 12/21/2023 22:46:00 64 >=60 (mL/min) Final eGFR is calculated based on the CKD-EPI 2020 equation Sodium 12/21/2023 22:46:00 132 Below low normal 135 -146 (mmol/L) Final Potassium 12/21/2023 22:46:00 3.6 3.5-5.1 (m mol/L) Final Cl 12/21/2023 22:46:00 97 Below low normal 98- 107 (mmol/L) Final CO2 12/21/2023 22:46:00 24 22-32 (mmo l/L) Final Anion gap 12/21/2023 22:46:00 11 7-15 (mmol /L) Final Glucose 12/21/2023 22:46:00 117 70-120 (mg /dL) Final Calcium 12/21/2023 22:46:00 8.0 Below low normal 8.4 -10.2 (mg/dL) Final Performing Location [facility] [place] [address] [place] [address]
--- OUTSIDE RECORDS SUMMARY | 2024-01-05 14:55 | External Medical Summary | Summary of Care ---
Author Name Unknown Organization [facility] Address [address] [place] [address] Phone [phone] Care Team Providers Care Media Marketing Manager Name Role Phone Raul Still MD Primary Care Provide r Encounter Details Date Type Department Care Team (Late st Contact Info) Description 12/20/2023 Orders Only Unspecified Department Montrell Carmen PA-C [address] [facility] [place] [address] Allergies No known active allergiesdocumented [...] mRNA, LNP-s, No Pre serve, 2-Dose Series ([employer]) 12/20/2021,05/21/2021,10/02/2020,2019 COVID-19, MRNA-LNP, 23-24, P F, 30 [...] EDT Office Visit Orthopaedics, [place] [address] [place] [address] Sebas Sheridan MD [address] [place] [address] 03/15/2024 1:20 PM EDT Office Visit Sleep [facility]tr [facility] [address] [place] [phone] Madai Rousseau DO [address] [place] [address] 03/17/2024 10:40 AM EDT Office Visit Family Medicine [address] [place] [phone] Raul Still MD [address] [place] [address] [place] [address] Scheduled Procedures Name Priority Associated Diagnoses Date/Ti [...] Date/Time Associated Diagnosis Comments RADIOLOGY EXAM - US (IMAGES ONLY, NO REPORT) Routine 12/20/2023 1:10 PM EDT documented in this encounter Results * RADIOLOGY EXAM - US (IMAGES ONLY, NO REPORT) (12/20/2023 1:10 PM EDT) 12/20/2023 1:09 PM EDT Narrative Scheduling, Silent - 12/22/2023 12:16 AM EDT This is an imaging study not interpreted or resulted by a [facility] or [facility] contracted radiologist. Montrell Carmen PA-C RAD ULTRASOUND documented in this encounter Advance Directives Latest Code Status on File Code Status Date Activated Date Inactivated Comments Full Code 12/21/2023 10:35 PM This order reflects the patients wishes and were consensually agreed upon. Question Answer Comments Discussion of Advance Directives occurred with: Patient Does the patient have a Living Will? No Does the patient have Health Care Power of Patient Care Secretary? No Care Teams Media Marketing Manager Relationship Specialty Start Date End Date Raul Still MD [address] [place] [address] [place] [phone] PCP - General Family Medicine 10/30/23 documented as of this encounter
--- OUTSIDE RECORDS SUMMARY | 2024-01-05 14:55 | External Medical Summary ---
Author Name Unknown Address Unknown Organization [id number]:LABORATORY [facility] [place] - [facility] [address] [place] [address] Laboratory Report Ordering Provider Test Date Status NAKUL ESQUIVEL 12/22/2023 15:33:00 Final Observation Date Value Abnormality Reference (Units ) Status Heparin, unfractionated level 12/22/2023 15:33:00 <0.10 <0.10 (IU/mL) Final Unfractionated therapeutic r anges for Anti Xa activity:
For Cardiac/Neurologic treatment: 0.3 to 0.6 IU/mL.
For treatment of DVT or Pulmonary Embolism: 0.3 to 0.7 IU/mL. Performing Location LABORATORY [facility] [place] - [address] [place] [address]
--- OUTSIDE RECORDS SUMMARY | 2024-01-05 14:55 | External Medical Summary | Summary of Care ---
Author Name Unknown Organization [facility] Address [address] [place] [address] Phone [phone] Care Team Providers Care Furnace Charging Machine Operator Name Role Phone Raul Still MD Primary Care Provide r Encounter Details Date Type Department Care Team (Latest Contact Info) Description 12/17/2023 1:35 PM EDT - 12/17/2023 2:19 PM EDT Hospital Encounter Radiology Film File [address] [place], [place] [phone] Discharge Disposition: Home - Self Care Allergies [...] 01/04/2024 3:30 PM EDT Office Visit Orthopaedics, [place] [address] [place] [address] Sebas Sheridan MD [address] [place] [address] 03/15/2024 1:20 PM EDT [facility] [address] [place] [phone] Madai Rousseau DO [address] [place] [address] 03/17/2024 10:40 AM EDT Office Visit Family Medicine [address] [place] [phone] Raul Still MD [address] [place] [address] [place] [address] Scheduled Procedures Name Priority Associated Diagnoses Date/Ti [...] interpreted or resulted by a [facility] or [facility] contracted radiologist. Montrell Carmen PA-C RADIOLOGY (RAD [...] the patient have Health Care Power of Long Wall Shear Operator? No Care Teams Furnace Charging Machine Operator Relationship Specialty Start Date End Date Raul Still MD [address] [place] [address] [place] [address] PCP - General Family Medicine 10/30/23 documented as of this encounter
--- OUTSIDE RECORDS SUMMARY | 2024-01-05 14:55 | External Medical Summary ---
Author Name Unknown Address Unknown Organization [id number]:LABORATORY [facility] [place] - 100 [facility] [address] Laboratory Report Ordering Provider Test Date Status MAHSA HIGH 12/22/2023 00:06:53 Final Observation Date Value Abnormality Reference (Units ) Status Color of Urine by Auto 12/22/2023 00:06:53 Light Yellow Colorless, Light Yellow, Yellow, Dark Yellow Final Clarity, Urine 12/22/2023 00:06:53 Slightly Cloudy Abnormal Clear Final Glucose [Mass/volume] in Urine by Automated test strip 12/22/2023 00:06:53 Negative Negative (mg/dL) Final Bilirubin.total [Presence] in Urine by Automated test strip 12/22/2023 00:06:53 Negative Negative Final Ketones [Mass/volume] in Urine by Automated test strip 12/22/2023 00:06:53 Negative Negative (mg/dL) Final Specific gravity, Urine 12/22/2023 00:06:53 1.011 1.003-1.030 Final Hemoglobin [Presence] in Urine by Automated test strip 12/22/2023 00:06:53 Trace Abnormal Negative Final pH, Urine 12/22/2023 00:06:53 5.5 5.0-7.5 (Units) Final Protein [Mass/volume] in Urine by Automated test strip 12/22/2023 00:06:53 30 Abnormal Negative (mg/dL) Final Urobilinogen [Mass/volume] in Urine by Automated test strip 12/22/2023 00:06:53 Normal Normal (mg/dL) Final Nitrite [Presence] in Urine by Automated test strip 12/22/2023 00:06:53 Negative Negative Final Leukocyte esterase [Presence] in Urine by Automated test strip 12/22/2023 00:06:53 Moderate Abnormal Negative Final RBC, Urine 12/22/2023 00:06:53 3-5 Abnormal 0-2 (/HPF) Final WBC, Urine 12/22/2023 00:06:53 20-29 Abnormal 0-2 (/HPF) Final Bacteria [#/area] in Urine sediment by Microscopy high power field 12/22/2023 00:06:53 0-25 0-25 (/HPF) Final Leukocyte clumps [#/area] in Urine sediment by Microscopy high power field 12/22/2023 00:06:53 Present Abnormal None (/HPF) Final Yeast [#/area] in Urine sediment by Microscopy high power field 12/22/2023 00:06:53 Present Abnormal None (/HPF) Final CULTURE, URINE - [facility] 12/22/2023 00:06:53 Final Quantitative urine culture t o be performed Performing Location LABORATORY [facility] [place] - [address] [facility] [address]
--- OUTSIDE RECORDS SUMMARY | 2024-01-05 14:55 | External Medical Summary | Summary of Care ---
Author Name Unknown Organization [facility] Address [address] [place] [address] Phone [phone] Care Team Providers Care Flat Cutter Name Role Phone Raul Still MD Primary Care Provide r Encounter Details Date Type Department Care Team (Latest Contact Info) Description 12/17/2023 7:40 PM EDT - 12/17/2023 11:59 PM EDT Hospital Encounter Radiology Film File [address] [place], [place] [phone] Discharge Disposition: Home - Self Care Allergies [...] 01/04/2024 3:30 PM EDT Office Visit Orthopaedics, [place] [address] [place] [address] Sebas Sheridan MD [address] [place] [address] 03/15/2024 1:20 PM EDT [facility] [address] [place] [phone] Madai Rousseau DO [address] [place] [address] 03/17/2024 10:40 AM EDT Office Visit Family Medicine [address] [place] [phone] Raul Still MD [address] [place] [address] [place] [address] Scheduled Procedures Name Priority Associated Diagnoses Date/Ti [...] the patient have Health Care Power of Powder Operator? No Care Teams Flat Cutter Relationship Specialty Start Date End Date Raul Still MD [address] [place] [address] [place] [phone] PCP - General Family Medicine 10/30/23 documented as of this encounter
--- OUTSIDE RECORDS SUMMARY | 2024-01-05 14:55 | External Medical Summary ---
Author Name Unknown Address Unknown Organization [id number]:[place] [facility] [place] [facility] [address] [facility] [address] [place] [address] Laboratory Report Ordering Provider Test Date Status MAHSA HIGH 12/22/2023 05:52:00 Final Get Heparin, unfractionated (Xa) level 6 hours after start of infusion and 6 hours after each dose adjustment Observation Date Value Abnormality Reference (Units ) Status Heparin, unfractionated level 12/22/2023 05:52:00 <0.10 <0.10 (IU/mL) Final Unfractionated therapeutic r anges for Anti Xa activity:
For Cardiac/Neurologic treatment: 0.3 to 0.6 IU/mL.
For treatment of DVT or Pulmonary Embolism: 0.3 to 0.7 IU/mL. Performing Location LABOR[facility] [facility] [place] - [facility] [address] [place] [address]
--- OUTSIDE RECORDS SUMMARY | 2024-01-05 14:55 | External Medical Summary ---
Author Name Unknown Address Unknown Organization K01:LABORATORY [facility] - [address] [place] [address] Laboratory Report Ordering Provider Test Date Status MAHSA HIGH 12/22/2023 11:03:00 Final Observation Date Value Abnormality Reference (Units ) Status Vancomycin, level 12/22/2023 11:03:00 13.4 10 .0-40.0 (ug/mL) Final Performing Location LABORATORY [facility] - [address] [place] [address]
--- OUTSIDE RECORDS SUMMARY | 2024-01-05 14:56 | External Medical Summary ---
Author Name Unknown Address Unknown Organization K01:LABORATORY [facility] - [address] [place] [address] Laboratory Report Ordering Provider Test Date Status MAHSA HIGH 12/21/2023 22:46:00 Final Observation Date Value Abnormality Reference (Units ) Status Phosphate 12/21/2023 22:46:00 2.3 Below low normal 2.5 -4.8 (mg/dL) Final Performing Location LABORATORY [facility] - [address] [place] [address]
--- OUTSIDE RECORDS SUMMARY | 2024-01-05 14:56 | External Medical Summary ---
Author Name Unknown Address Unknown Organization K01[place] [facility] [place] [address] [place] [address] Laboratory Report Ordering Provider Test Date Status MAHSA HIGH 12/21/2023 22:46:00 Final Observation Date Value Abnormality Reference (Units ) Status Albumin 12/21/2023 22:46:00 2.4 Below low normal 3.8-5.0 (g/dL) Final AST (Aspartate aminotransferase) 12/21/2023 22:46:00 110 Above high normal 10-50 (U/L) Final Alk Phos 12/21/2023 22:46:00 276 Above high normal 35-130 (U/L) Final ALT (Alanine aminotransferase) 12/21/2023 22:46:00 105 Above high normal 10-50 (U/L) Final Bilirubin, Total 12/21/2023 22:46:00 0.3 <=1.2 (mg/dL) Final Bilirubin, Direct 12/21/2023 22:46:00 <0.2 0.0-0.3 (mg/dL) Final Protein 12/21/2023 22:46:00 6.6 6.0-8.3 (g/dL) Final Performing Location [place] [place] [address] [place] [address]
--- OUTSIDE RECORDS SUMMARY | 2024-01-05 14:56 | External Medical Summary ---
Author Name Unknown Address Unknown Organization K01[place] [facility] [place] 100 [facility] [place] [address] Laboratory Report Ordering Provider Test Date Status MAHSA HIGH 12/21/2023 22:46:00 Final Observation Date Value Abnormality Reference (Units ) Status SYNC LEUKOCYTES IN BLOOD BY AUTOMATED COUNT 12/21/2023 22:46:00 14.95 Above high normal 4.00-10.80 (K/uL) Final Segs 12/21/2023 22:46:00 74.9 40.0-75.0 (%) Final Lymphs % 12/21/2023 22:46:00 12.4 Below low normal 18.0-42.0 (%) Final Monos 12/21/2023 22:46:00 7.2 1.0-11.0 (%) Final Eosinophils 12/21/2023 22:46:00 2.3 0.0-6.0 (%) Final Basos 12/21/2023 22:46:00 0.4 0.0-2.0 (%) Final Immature Granulocyte, Percent 12/21/2023 22:46:00 2.8 Above high normal 0.0-2.0 (%) Final Absolute Segs 12/21/2023 22:46:00 11.20 Above high normal 1.80-7.70 (K/uL) Final Lymphs, absolute 12/21/2023 22:46:00 1.85 1.00-4.80 (K/ul) Final Monos, Abs 12/21/2023 22:46:00 1.08 0.00-1.10 (K/uL) Final Eos, Abs 12/21/2023 22:46:00 0.34 0.00-0.70 (K/uL) Final Basos, Abs 12/21/2023 22:46:00 0.06 0.00-0.20 (K/uL) Final Immature Granulocytes, Number 12/21/2023 22:46:00 0.42 Above high normal 0.00-0.20 (K/uL) Final Performing Location [place] [facility] [place] [facility] [place] [address]
--- OUTSIDE RECORDS SUMMARY | 2024-01-05 14:56 | External Medical Summary ---
Author Name Unknown Address Unknown Organization K01:LABORATORY [facility] [place] - [address] [place] [address] Laboratory Report Ordering Provider Test Date Status MAHSA HIGH 12/21/2023 22:46:00 Final Observation Date Value Abnormality Reference (Units ) Status Lactic Acid 12/21/2023 22:46:00 1.0 0.4-2.0 (mmol/L) Final Performing Location LABORATORY C - [address] [place] [address]
--- OUTSIDE RECORDS SUMMARY | 2024-01-05 14:56 | External Medical Summary | Summary of Care ---
Author Name Unknown Organization [facility] Address [address] [place] [address] Phone [phone] Care Team Providers Care Lcac Radar Operator/Navigator Name Role Phone Raul Still MD Primary Care Provide r Encounter Details Date Type Department Care Team (Latest Contact Info) Description 12/17/2023 7:17 PM EDT - 12/17/2023 11:59 PM EDT Hospital Encounter Radiology Film File [address] [place] [address] Arrived Discharge Disposition: Home - Self Care Allergies No known active allergiesdocumented as of this encounter (statuses as of 12/18/2023) Medications Medication Sig Dispensed Refills Start Date [...] as of this encounter (statuses as of 12/18/2023) Active Problems Problem Noted Date Diagnosed Date [...] as of this encounter (statuses as of 12/18/2023) Resolved Problems Problem Noted Date Diagnosed Date Resolved Date Acute bilateral low back kaity n without sciatica 08/05/2016 08/06/2017 BMI 34.0-34.9,adult 04/21/2013 08/23/20 19 Dyslipidemia, goal to be determined 12/16/2004 12/31/2010 HYPERTENSION NOS 08/08/2009 Overview: Modified per HTN protocol #16. Allergic rhinitis 08/06/2017 documented as of this encounter (statuses as of 12/18/2023) Immunizations Name Administration Dates Next Due COVID-19 [...] Team (Late st Contact Info) Description 12/22/2023 8:45 AM EDT Imaging Radiology [address] 132 [facility] [place] [address] 01/04/2024 3:30 PM EDT Office Visit Orthopaedics, [place] [address] [place] [address] Sebas Sheridan MD [address] [place] [address] 03/15/2024 1:20 PM EDT Office Visit Sleep Disorders Ctr [facility] 132 [facility] [place] [phone] Madai Rousseau, 132 [facility] [place] [address] 03/17/2024 10:40 AM EDT Office Visit Family Medicine [address] [place] [phone] Raul Still MD [address] [place] [address] [place] [address] Scheduled Procedures Name Priority Associated Diagnoses Date/Ti [...] Albumin/Creatinine Ratio 11/10/2024 11/10/2021, 12/0 05/2020 GFR 12/15/2024 12/16/2023, 1005/2023, 11/10/2021, Additional history exists Diabetes Screening 12/15/2026 [...] CT (IMAGES ONLY, NO REPORT) Routine 12/17/2023 7:19 PM EDT documented in this encounter Results * RADIOLOGY EXAM - CT (IMAGES ONLY, NO REPORT) (12/17/2023 7:19 PM EDT) Narrative Scheduling, Silent - 12/17/2023 7:19 PM EDT This is an imaging study not interpreted or resulted by a [facility] or [facility] contracted radiologist. Ty F Jac DO RAD CT documented in this encounter Care Teams Lcac Radar Operator/Navigator Relationship Specialty Start Date End Date Raul Still MD [address] [place] [address] [place] [phone] PCP - General Family Medicine 10/30/23 documented as of this encounter
--- OUTSIDE RECORDS SUMMARY | 2024-01-05 14:56 | External Medical Summary | Summary of Care ---
Author Name Unknown Organization [facility] Address [address] [place] [address] Phone [phone] Care Team Providers Care Pairer Inspector Name Role Phone Raul Still MD Primary Care Provide r Encounter Details Date Type Department Care Team (Late st Contact Info) Description 12/18/2023 Documentation Orthopaedics, [place] [address] [place] [address] Sebas Sheridan MD [address] [place] [address] Allergies No known active allergiesdocumented as of [...] as of this encounter Progress Notes * Sebas Sheridan MD - 12/18/2023 9:30 AM EDT Orthopedics I was informed this morning by the operating room control desk that the patient is presently admitted to [facility] for care. So, he is not available for surgical treatment this morning. I will cancel his procedure and await further information. Sebas Sheridan MD documented in this encounter Plan of Treatment Upcoming Encounters Date Type Department Care Team (Late st Contact Info) Description 12/22/2023 8:45 AM EDT Imaging Radiology [address] 132 [facility] [place] [address] 01/04/2024 3:30 PM EDT Office Visit Orthopaedics, [place] [address] [place] [address] Sebas Sheridan MD [address] [place] [address] 03/15/2024 1:20 PM EDT Office Visit Sleep Disorders Ctr [facility] 132 [facility] [place] [phone] Madai Rousseau DO 132 [facility] [place] [address] 03/17/2024 10:40 AM EDT Office Visit Family Medicine [address] [place] [phone] Raul Still MD [address] [place] [address] [place] [address] Scheduled Procedures Name Priority Associated Diagnoses Date/Ti [...] filedocumented as of this encounter Care Teams Pairer Inspector Relationship Specialty Start Date End Date Raul Still MD [address] [place] [address] [place] [phone] PCP - General Family Medicine 10/30/23 documented as of this encounter
--- OUTSIDE RECORDS SUMMARY | 2024-01-05 14:56 | External Medical Summary ---
Author Name Unknown Address Unknown Organization K01:[place] [facility] [place] [address] [place] [address] Laboratory Report Ordering Provider Test Date Status SERG HIGHLARRY 12/21/2023 22:46:00 Final Warfarin Therapy
INR: 2 .0-3.0 conventional anticoagulation
INR: 2.5- 3.5 high intensity anticoagulation Observation Date Value Abnormality Reference (Units ) Status PT 12/21/2023 22:46:00 15.0 11.6-15.2 (seconds) Final INR 12/21/2023 22:46:00 1.2 0.8-1.2 Final Performing Location [facility] [facility] [place] [address] [place] [address]
--- OUTSIDE RECORDS SUMMARY | 2024-01-05 14:56 | External Medical Summary ---
Author Name Unknown Address Unknown Organization K01:[place] [place] 100 [facility] [place] [address] Laboratory Report Ordering Provider Test Date Status MAHSA HIGH 12/21/2023 22:46:00 Final Please submit paper requisit ion from unit printer with sample and fill in the appropriate information:

Spoke with Nursing staff to confirm no contamination Observation Date Value Abnormality Reference (Units ) Status Body temperature 12/21/2023 22:46:00 37.0 (C) Final pH of Venous blood 12/21/2023 22:46:00 7.460 Above high normal 7.320-7.430 (units) Final Carbon dioxide [Partial pressure] in Venous blood 12/21/2023 22:46:00 37.9 Below low normal 40.0-60.0 (mmHg) Final Oxygen [Partial pressure] in Venous blood 12/21/2023 22:46:00 48.0 25.0-50.0 (mmHg) Final Base excess, Capillary 12/21/2023 22:46:00 3.0 Above high normal -2.0-2.0 (mmol/L) Final Hemoglobin [Mass/volume] in Blood by Oximetry 12/21/2023 22:46:00 6.1 Below low normal 14.0-16.8 (g/dL) Final Oxyhemoglobin, Venous (FO2HB) 12/21/2023 22:46:00 81.8 40.0-85.0 (% total Hgb) Final Carboxyhemoglobin 12/21/2023 22:46:00 2.0 Above high normal <=1.5 (% total Hgb) Final Smokers: 0-9.0 % Methemoglobin 12/21/2023 22:46:00 0.7 <=1.5 (% total Hgb) Final Deoxyhemoglobin/Hemoglobin.t otal in Venous blood 12/21/2023 22:46:00 15.5 (% total Hgb) Baylee l Oxygen content in Venous blood 12/21/2023 22:46:00 7.0 7.0-18.0 (%vol) Final Bicarbonate, Venous, POC (i-STAT) 12/21/2023 22:46:00 26.6 23.0-31.0 (mmol/L) Fi [facility] Performing Location LABOR[facility]ORY [facility] [place] - [facility] [place] [address]
--- OUTSIDE RECORDS SUMMARY | 2024-01-05 14:56 | External Medical Summary ---
Author Name Unknown Address Unknown Organization K01:[place] [facility] [place] - [facility] [address] [place] [address] Laboratory Report Ordering Provider Test Date Status MAHSA HIGH 12/21/2023 22:46:00 Final Observation Date Value Abnormality Reference (Units ) Status WBC, Total 12/21/2023 22:46:00 14.95 Above high normal 4.00-10.80 (K/uL) Final RBC 12/21/2023 22:46:00 2.58 4.50-5.25 (M/uL) Final Hemoglobin 12/21/2023 22:46:00 7.0 Below low normal 14.0-16.8 (g/dL) Final HCT 12/21/2023 22:46:00 21.2 Below low normal 40.0-48.4 (%) Final MCV 12/21/2023 22:46:00 82.2 82.0-99.5 (fL) Final MCH 12/21/2023 22:46:00 27.1 27.0-34.0 (pg) Final MCHC 12/21/2023 22:46:00 33.0 32.0-36.0 (g/dL) Final RDW 12/21/2023 22:46:00 15.1 11.5-15.5 (%) Final Platelets 12/21/2023 22:46:00 643 Above high normal 140-400 (K/uL) Final MPV 12/21/2023 22:46:00 8.9 6.6-11.1 (fL) Final Nucleated erythrocytes/100 leukocytes [Ratio] in Blood by Automated count 12/21/2023 22:46:00 0 <=0 (/100 WBCs) Final Performing Location LAB[facility]ORY [facility] [place] - [address] [place] [address]
[2024-01-05 15:14] LABS: Influenza A virus by PCR Negative (Neg); Influenza B virus by PCR Negative (Neg); RSV by PCR Negative (Neg); SARS CoV2 RNA(COVID-19) Ceph NEGATIVE (Negative)
--- NOTE | 2024-01-05 15:36 | CT Scan Report ---
HEAD CT NONCONTRAST CT DOSE: 625.8 mGy.cm HISTORY: confusion TECHNIQUE: Multiaxial CT images of the head were performed without the use of intravenous contrast. A utomated exposure control was utilized for this study. A dose lowering technique was utilized adheri ng to the principles of ALARA. Comparison: Head CT 12/09/2023. Findings: The paranasal sinuses and mastoid air cells are clear. The calvarium and skull base are int act. The ventricles and sulci are within normal limits. There is no mass, hematoma, midline shift, or acute infarct. Impression: No acute intracranial abnormality. ACT 112: Negative or not required by law. Electronically signed by: Jimmie Castellanos M.D. 01/05/2024 3:34 PM
[2024-01-05] MEDS: LACTATED RINGER'S 1,000 ML IV SCH (16:16)
[2024-01-05] MEDS: AMPICILLIN SOD/SULBACTAM SOD 3 GM VIAL IV SCH (16:32)
[2024-01-05 17:08] LABS: Appearance Urine Clear (Clear); Bacteria Urine Automated None Seen (None Seen); Bilirubin Urine Negative (Negative); Blood Urine Negative (Negative); Cast Urine Automated 0-2 /lpf (0-2); Color Urine Yellow; Epithelial Cell Urine Auto 0-2 /hpf (0-2); Glucose Urine UA Negative (Negative); Ketones Urine 1+ (Negative); Leukocyte Esterase Urine Negative (Negative); Nitrite Urine Negative (Negative); Protein Urine Trace (Negative); RBC Urine Automated 0-2 /hpf (0-2); Specific Gravity Urine 1.013 (1.000-1.030); Urobilinogen Urine Negative (Negative); WBC Urine Automated 0-5 /hpf (0-5)
[2024-01-05 23:01] LABS: Hematocrit (blood only) 26.4 % (42.0-52.0); Hemoglobin 8.2 g/dl (14.0-18.0); Mean Corpuscular Hemoglobin 26.8 pg (25.0-34.0); Mean Corpuscular Hgb Conc 31.1 g/dL (32.0-36.0); Mean Corpuscular Volume 86.3 fL (80.0-100.0); Platelet Count 445 K/uL (130-400); RDW Coefficient of Variation 19.6 % (11.5-14.5); RDW Standard Deviation 61.1 fL (36.4-46.3); Red Blood Count 3.06 M/uL (4.70-6.10); White Blood Count 8.51 K/ul (4.8-10.8)
[2024-01-05 23:37] LABS: Calcium 8.5 mg/dl (8.6-10.3); Magnesium 1.8 mg/dl (1.7-2.4); Potassium 4.1 mmol/L (3.5-5.1)
[2024-01-05 23:43] LABS: BUN Creatinine Ratio 8.3 (10-20); Creatinine Clr Calc Pharmacy 30.1 ml/min; Est GFR (African American) 24.4 ml/min
[2024-01-06] MEDS: OLANZapine 10 MG/2.1 ML SDV IM STA (04:54)
[2024-01-06 07:44] LABS: Albumin Globulin Ratio 0.7 (0.9-2); Albumin Level 2.7 gm/dl (3.4-5.0); BUN Creatinine Ratio 8.7 (10-20); Bilirubin,Total 0.4 mg/dl (0.2-1.0); Calcium 8.5 mg/dl (8.6-10.3); Creatinine Clr Calc Pharmacy 32.7 ml/min; Est GFR (African American) 26.9 ml/min; Est GFR (Non-African American) 23.3 ml/min; Globulin 4.1 gm/dl (2.5-4.0); Magnesium 1.8 mg/dl (1.7-2.4); Phosphorus 4.2 mg/dl (2.5-4.9); Potassium 4.1 mmol/L (3.5-5.1); Total Protein 6.8 gm/dl (6.0-8.3)
[2024-01-06 07:45] LABS: Hematocrit (blood only) 26.3 % (42.0-52.0); Hemoglobin 8.2 g/dl (14.0-18.0); Mean Corpuscular Hemoglobin 26.6 pg (25.0-34.0); Mean Corpuscular Hgb Conc 31.2 g/dL (32.0-36.0); Mean Corpuscular Volume 85.4 fL (80.0-100.0); Mean Platelet Volume 10.2 fL (9.4-12.4); Platelet Count 453 K/uL (130-400); RDW Coefficient of Variation 19.7 % (11.5-14.5); Red Blood Count 3.08 M/uL (4.70-6.10); White Blood Count 7.37 K/ul (4.8-10.8)
[2024-01-06] MEDS: D5W AND 1/2NSS 1,000 ML IV SCH (10:27)
--- NOTE | 2024-01-06 11:13 | Nephrology Consultation ---
Date of Consultation January 06, 2024 Assessment & Plan (1) DICK (acute kidney injury): 58/M with normal creat of 0.87 as of 12/21/2023. had DICK from ATN with peak creat of 3.2 in the setting of MRSA bacteremia and Sepsis. Creat been in the 3.1--3.3 range now for last 10 days ( reviewed C labs in EPIC). So admission creat similar to recent peak creat. this is still from the ATN he had and Showing signs of recovery. Creat down a bit to 2.8. So expect better renal recovery but he still has lot of issues with Infection/abx so renal recovery can be protracted. daily labs. I and O. Avoid nephrotoxic agents. Continue IV fluid. (2) Sepsis: being addressed. Complex issues. ID following (3) Hypomagnesemia: low on admission and now normal. Plan case complexity high. I spent 1hr 10 min reviewing multiple Admission from different hospitals and records and specialists History of Present Illness Reason for Consultation: DICK Attending Physician: Ranjit Faust MD History of Present Illness 58/M with normal creat of 0.87 as of 12/21/2023. had DICK from AT with peak creat of 3.2 in the setting of MRSA bacteremia and Sepsis. Creat been in the 3.1--3.3 range now for last 10 days ( reviewed C labs in EPIC). He presented to the ED with altered mental status. He has a complex history with inpatient hospitalization here at [facility] with a transfer to [facility] on 12/20 for further evaluation of right knee sepsis and MRSA bacteremia. He underwent an I/D on 12/24 of his right distal femur osteomyelitis and placed on antibiotic beads on 12/25/2023. He initially was started on IV Vancomycin for MRSA bacteremia with infective endocarditis but developed DICK from Acute Tubular Necrosis and he was switched to IV Daptomycin. He was discharged home on 01/02/24 with IV Daptomycin to be administered through his PICC with Home Health. He continues to have nonoliguric DICK with creatinine at 3.33 ( 3.1---3.3 for about 10 days now) . He was also found to have an occlusive RLE DVT when he was in [place]. He was transition to [facility] for his DVT upon discharge. CXR negative for pneumonia or acute cardiopulmonary disease, right knee x-ray revealed no acute dislocation or fracture however small to moderate knee effusion and diffuse soft tissue swelling noted. COVID/flu/RSV negative. Head CT negative for acute intracranial pathology. Last admission a KIERSTEN was performed with the following results: 0.5 x 0.3 echodensity MV leaflet with small vegetation noted and trace MR. 4/1 echo EF 55 to 60% with LV wall motion normal. Got some iv fluid and creat is down a bit today at 2.7. Renal US done at [facility] on 12/25 and no Hydronephrosis. Supposed to be transferred to [facility] when bed available. Vital signs are fine. ROS--See HPI. Unless stated otherwise 12 Systems reviewed and negative Physical Exam Physical Exam: Neuro: Awake and alert. PERRLA HEENT: head normocephalic, moist mucus membranes CV: S1/S2, (-) M/G/R, (-) edema, cap refill < 3 seconds Resp: Lungs CTA in all [place]. On RA GI: Abdomen S/NT/ND, Ax4 bowel sounds, (-) CVA tenderness Musculoskeletal: 5/5 B/L UE strength, 5/5 B/L LE strength. No gait disturbance Skin: (-) rashes , (-) erythema. Psych: euthymic mood Allergies Allergy/AdvReac Type Severity Reaction Status Date / Time No Known Allergies Allergy Unverified 01/05/24 12:24 Home Medications Medication Instructions Recorded Confirmed Type enalapril maleate 10 mg tablet 10 mg PO QAM 12/17/23 01/05/24 History naproxen 500 mg tablet 500 mg PO BID PRN Pain 12/17/23 01/05/24 History simvastatin 20 mg tablet 20 mg PO HS 12/17/23 01/05/24 History Daptomycin Iv 650 m IV Q OTHER DAY 01/05/24 01/05/24 History apixaban 5 mg tablet (Eliquis) 5 mg PO BID 01/05/24 01/05/24 History baclofen 20 mg tablet 20 mg PO DAILY PRN muscle spasms 01/05/24 01/05/24 History ferrous sulfate 325 mg (65 mg 325 mg PO QAM 01/05/24 01/05/24 History iron) tablet Patient History Medical History History of DVT (deep vein thrombosis) Hypomagnesemia Dyslipidemia Hypertension Family History Other Coronary heart disease Social History Smoking Status: Unknown if ever smoked Second Hand Exposure: No; Do You Dip or Chew Tobacco: No; Tobacco Cessation Education Requested by Patient: No Hx Alcohol Use: No Hx Substance Use: No Preferred Language: Swiss Communication Ability: Effective [employer] Required: No Beliefs That Will Affect Care: None Current Living Situation: Family Other Information That Helps Us Care for You: No Feels Safe at Home: Yes Safety Concerns: Feels Safe At This Time Assistive Devices: None Results & Data Vital Signs (Past 12 Hours) Vital Signs Temp Pulse Pulse Resp BP BP Pulse Ox 01/06/24 10:30 84 18 01/06/24 10:30 147/73 H 01/06/24 10:20 98 H 13 01/06/24 10:10 88 14 01/06/24 10:00 90 20 97 01/06/24 09:50 86 21 98 01/06/24 09:42 96 01/06/24 09:20 98 H 22 95 01/06/24 09:10 92 H 24 01/06/24 09:01 177/88 H 01/06/24 09:01 93 H 20 01/06/24 09:00 92 H 22 01/06/24 08:50 60 14 01/06/24 08:40 91 H 16 01/06/24 08:30 151/97 H 01/06/24 08:30 69 21 01/06/24 08:20 96 H 20 01/06/24 08:10 83 7 L 01/06/24 08:00 90 20 01/06/24 07:50 98 H 21 01/06/24 07:40 98 H 18 01/06/24 07:31 145/81 H 01/06/24 07:31 61 13 01/06/24 07:30 65 8 L 01/06/24 07:23 75 20 01/06/24 07:23 157/80 H 01/06/24 07:20 88 15 01/06/24 07:10 95 H 22 01/06/24 07:09 87 01/06/24 07:00 94 H 19 01/06/24 06:50 98 H 20 01/06/24 06:40 103 H 17 01/06/24 06:30 87 13 01/06/24 06:20 68 0 L 01/06/24 06:10 65 0 L 01/06/24 06:00 67 0 L 01/06/24 05:50 66 0 L 01/06/24 05:40 68 11 L 01/06/24 05:30 71 15 01/06/24 05:20 69 15 01/06/24 05:18 36.9 C 68 18 134/79 98 01/06/24 05:10 69 15 01/06/24 05:00 93 H 20 01/06/24 04:50 87 7 L 01/06/24 04:40 64 11 L 01/06/24 04:30 62 13 01/06/24 04:20 73 13 01/06/24 04:10 92 H 24 01/06/24 04:00 95 H 25 H 01/06/24 03:50 96 H 16 01/06/24 03:40 96 H 20 01/06/24 03:30 64 7 L 01/06/24 03:24 36.8 C 93 H 18 133/75 98 01/06/24 03:23 133/75 01/06/24 03:23 89 19 01/06/24 03:20 64 10 L 01/06/24 03:10 70 11 L 01/06/24 03:00 97 H 17 01/06/24 02:50 94 H 20 01/06/24 02:40 74 15 01/05/24 23:40 66 O2 Del Method O2 Flow Rate 01/06/24 10:30 01/06/24 10:30 01/06/24 10:20 01/06/24 10:10 01/06/24 10:00 01/06/24 09:50 01/06/24 09:42 01/06/24 09:20 0 01/06/24 09:10 01/06/24 09:01 01/06/24 09:01 01/06/24 09:00 01/06/24 08:50 01/06/24 08:40 01/06/24 08:30 01/06/24 08:30 01/06/24 08:20 01/06/24 08:10 01/06/24 08:00 01/06/24 07:50 01/06/24 07:40 01/06/24 07:31 01/06/24 07:31 01/06/24 07:30 01/06/24 07:23 01/06/24 07:23 01/06/24 07:20 01/06/24 07:10 01/06/24 07:09 01/06/24 07:00 01/06/24 06:50 01/06/24 06:40 01/06/24 06:30 01/06/24 06:20 01/06/24 06:10 01/06/24 06:00 01/06/24 05:50 01/06/24 05:40 01/06/24 05:30 01/06/24 05:20 01/06/24 05:18 Room Air 01/06/24 05:10 01/06/24 05:00 01/06/24 04:50 01/06/24 04:40 01/06/24 04:30 01/06/24 04:20 01/06/24 04:10 01/06/24 04:00 01/06/24 03:50 01/06/24 03:40 01/06/24 03:30 01/06/24 03:24 Room Air 01/06/24 03:23 01/06/24 03:23 01/06/24 03:20 01/06/24 03:10 01/06/24 03:00 01/06/24 02:50 01/06/24 02:40 01/05/24 23:40
[2024-01-06] MEDS: HALOPERIDOL LACTATE 5 MG/ML 1 ML VIAL IV PRN (13:08)
--- NOTE | 2024-01-06 16:24 | Hospitalist Progress Note ---
Date of Service January 06, 2024 Assessment & Plan (1) Hypertension: (2) Dyslipidemia: (3) DICK (acute kidney injury): (4) Hypomagnesemia: (5) History of DVT (deep vein thrombosis): Plan: 58-year-old male with PMH of HTN, HLD, OFELIA, DVT RLE, acute hematogenous OM of right femur presented with altered mental status 01/04. Of note, he had recent inpatient hospitalization here at [facility] with a transfer to [facility] on 12/20 for further evaluation of MRSA bacteremia, endocarditis and s/p I & D of the right distal femur osteomyelitis and placement of antibiotic beads on 12/24 in [place]. The admission was complicated by RLE DVT. Patient was started on Eliquis. Last admission a KIERSTEN was performed with the following results: 0.5 x 0.3 echodensity MV leaflet with small vegetation noted and trace MR. 12/20 echo EF 55 to 60% with LV wall motion normal. He was initially put on IV vancomycin for MRSA bacteremia with IE but developed DICK and ATN, hence was switched to IV daptomycin. He was discharged on 01/02/2024 on iv Dapto 650 mg Q48x 17 doses [not to be started before January 03, 2024]. He has PICC line. He did take his a.m. dose of vancomycin on 01/04 prior to arrival. At presentation, WBC WNL, procalcitonin WNL, lactate WNL. Acute metabolic encephalopathy Recent MRSA bacteremia and infective endocarditis: Undergoing treatment with IV daptomycin [see above]. CPK on 01/04 at 171. Patient presenting with confusion described as erratic and confused per family member at presentation. He was recently on IV vancomycin, switched to IV daptomycin due to DICK/ATN At presentationpatient denied any chest pain or shortness of breath or febrile illness lately. Patient denies any dysuria or hematuria. Patient did have swollen and painful right knee at presentation. Sutures intact/no erythema noted at bedside examination today. Bed sheets with drainage stains. Admitting CXR with no acute finding. Admitting CT head with no acute finding. Admitting right knee with no acute fracture or dislocation, has small to moderate right knee effusion associated with diffuse soft tissue swelling. Imaging suggestive of osteomyelitis versus septic arthritis. Admitting team discussed with ID 01/04, plan was to get vancomycin trough level, and to hold all antibiotic as ID suspected possibly supratherapeutic vancomycin level ISO uremia causing AMS. Vancomycin trough level came back 4.8, patient remains confused on and off. Will consult neurology. Reached out to ID Dr. Harman via TT, patient is not due for further IV antibiotic until tomorrow a.m. per recent ID discharge recommendation. Will await further input from infectious disease. Patient has been accepted for transfer at [facility] [accepting physician Dr. Jordan Finney]. Ortho consult has been placed already, will closely follow recommendation. Discussed with transfer center, no further updates on bed availability at this time. --> updated about 4:47 pm, bed assignment received. Eliquis has been held per admitting team in anticipation for surgical need open transfer to [place]. Will continue to hold Eliquis, will put patient on IV heparin drip if patient is to wait here for longer time.[Monitor H&H closely]. Follow admitting blood culture, vitals appears stable. DICK/uremia: Likely from ATN. Nephrology on board, appreciate recommendation. Continue with IV fluid. Hypomagnesemia: Monitor replete. History of DVT: On Eliquis at home, currently on hold in anticipation for any surgical needs at [facility]. Hypertension: Chronic, enalapril on hold due to DICK Hyperlipidemia: Chronic, on simvastatin at home. Hold due to being on daptomycin. Disposition: PCP: Dr. Still Code Status: Full Code VTE Prophylaxis: On Eliquis Transfer to [facility] when transport arranged for. Patient's primary contact Sebas Barrera was given a phone call and updated on current status of the patient. We went over each and every point as noted in my assessment and plan. He was made aware that patient has already got bed assignment at [facility] and will be transferred likely tonight. He stated that he will communicate to other relevant family members about this update. Admission and Anticipated Discharge Date Admission Date: January 05, 2024 Subjective Patient was seen and examined at bedside. Patient was sitting up in bed, on room air, NAD, resting comfortably. Per RN, patient is on and off confused and gets slightly agitated when confused. Patient reports swelling/discomfort/tightness at right knee. Patient has been put n.p.o. in anticipation for surgical procedure at [facility]. Patient is pending transfer to [facility]. Patient denies headache or dizziness or febrile episodes. Physical Exam Physical Exam: GENERAL: Alert and oriented x3. NAD, on RA. HEENT: No pallor, no icterus. Pupils equal, round and reactive to light. Oral mucosa moist. NECK: No JVD, no neck masses. HEART: S1 and S2 heard. Regular rate and rhythm. No murmur, no gallop. RESPIRATORY SYSTEM: Normal AP diameter. No accessory muscle use. No wheezing, no crackles. ABDOMEN: Soft, bowel sounds present, nontender, no distention. CENTRAL NERVOUS SYSTEM: No facial droop. Speech is clear. Obeys simple commands. Moves extremities. EXTREMITIES: No edema, no erythema seen. RLE swelling noted, Rt knee swollen, - ve erythema, decreased ROM, doesn't seem pain out of proportion. Results & Data Results & Data Vital Signs (Past 12 Hours) Vital Signs Temp Pulse Pulse Resp BP BP Pulse Ox 01/06/24 14:20 83 12 01/06/24 14:10 66 16 01/06/24 14:00 99 H 19 01/06/24 13:50 62 18 01/06/24 13:40 99 H 23 95 01/06/24 13:30 97 H 16 01/06/24 13:20 95 H 20 01/06/24 13:10 73 16 97 01/06/24 13:00 103 H 16 01/06/24 12:50 84 21 01/06/24 12:40 84 23 01/06/24 12:30 91 H 24 01/06/24 12:20 92 H 20 01/06/24 12:10 92 H 16 99 01/06/24 12:00 94 H 23 01/06/24 11:50 86 21 01/06/24 11:40 84 20 01/06/24 11:30 94 H 24 01/06/24 11:20 91 H 18 01/06/24 11:10 92 H 19 01/06/24 11:01 145/75 H 01/06/24 11:01 101 H 24 01/06/24 11:00 94 H 20 01/06/24 10:50 62 8 L 98 01/06/24 10:40 97 H 19 01/06/24 10:30 84 18 01/06/24 10:30 147/73 H 01/06/24 10:20 98 H 13 01/06/24 10:10 88 14 01/06/24 10:00 90 20 97 01/06/24 09:50 86 21 98 01/06/24 09:42 96 01/06/24 09:20 98 H 22 95 01/06/24 09:10 92 H 24 01/06/24 09:01 177/88 H 01/06/24 09:01 93 H 20 01/06/24 09:00 92 H 22 01/06/24 08:50 60 14 01/06/24 08:40 91 H 16 01/06/24 08:30 151/97 H 01/06/24 08:30 69 21 01/06/24 08:20 96 H 20 01/06/24 08:10 83 7 L 01/06/24 08:00 90 20 01/06/24 07:50 98 H 21 01/06/24 07:40 98 H 18 01/06/24 07:31 145/81 H 01/06/24 07:31 61 13 01/06/24 07:30 65 8 L 01/06/24 07:23 75 20 01/06/24 07:23 157/80 H 01/06/24 07:20 88 15 01/06/24 07:10 95 H 22 01/06/24 07:09 87 01/06/24 07:00 94 H 19 01/06/24 06:50 98 H 20 01/06/24 06:40 103 H 17 01/06/24 06:30 87 13 01/06/24 06:20 68 0 L 01/06/24 06:10 65 0 L 01/06/24 06:00 67 0 L 01/06/24 05:50 66 0 L 01/06/24 05:40 68 11 L 01/06/24 05:30 71 15 01/06/24 05:20 69 15 01/06/24 05:18 36.9 C 68 18 134/79 98 01/06/24 05:10 69 15 01/06/24 05:00 93 H 20 01/06/24 04:50 87 7 L 01/06/24 04:40 64 11 L 01/06/24 04:30 62 13 01/06/24 04:20 73 13 O2 Del Method O2 Flow Rate 01/06/24 14:20 01/06/24 14:10 01/06/24 14:00 01/06/24 13:50 01/06/24 13:40 01/06/24 13:30 01/06/24 13:20 01/06/24 13:10 01/06/24 13:00 01/06/24 12:50 01/06/24 12:40 01/06/24 12:30 01/06/24 12:20 01/06/24 12:10 01/06/24 12:00 01/06/24 11:50 01/06/24 11:40 01/06/24 11:30 01/06/24 11:20 01/06/24 11:10 01/06/24 11:01 01/06/24 11:01 01/06/24 11:00 01/06/24 10:50 01/06/24 10:40 01/06/24 10:30 01/06/24 10:30 01/06/24 10:20 01/06/24 10:10 01/06/24 10:00 01/06/24 09:50 01/06/24 09:42 01/06/24 09:20 0 01/06/24 09:10 01/06/24 09:01 01/06/24 09:01 01/06/24 09:00 01/06/24 08:50 01/06/24 08:40 01/06/24 08:30 01/06/24 08:30 01/06/24 08:20 01/06/24 08:10 01/06/24 08:00 01/06/24 07:50 01/06/24 07:40 01/06/24 07:31 01/06/24 07:31 01/06/24 07:30 01/06/24 07:23 01/06/24 07:23 01/06/24 07:20 01/06/24 07:10 01/06/24 07:09 01/06/24 07:00 01/06/24 06:50 01/06/24 06:40 01/06/24 06:30 01/06/24 06:20 01/06/24 06:10 01/06/24 06:00 01/06/24 05:50 01/06/24 05:40 01/06/24 05:30 01/06/24 05:20 01/06/24 05:18 Room Air 01/06/24 05:10 01/06/24 05:00 01/06/24 04:50 01/06/24 04:40 01/06/24 04:30 01/06/24 04:20
--- NOTE | 2024-01-06 21:50 | Discharge Summary ---
Date of Service January 06, 2024 Admission HPI Per Admitting Provider Mr. Barrera is a 58 year old male that presents to the ED today with altered mental status. He has a complex history that most recently includes an inpatient hospitalization here at [facility] with [place] [facility] [place] further evaluation of right knee sepsis and MRSA bacteremia. He underwent an I/D on 12/24 of his right distal femur osteomyelitis and placed on antibiotic beads on 12/25/2023. He initially was started on IV Vancomycin for MRSA bacteremia with infective endocarditis but developed DICK that later turned to be Acute Tubular Necrosis and he was switched to IV Daptomycin. He was discharged home on 01/02/24 with IV Daptomycin to be administered through his PICC with Home Health. He continues to have nonoliguric DICK with creatinine at 3.33. He was also found to have an occlusive RLE DVT when he was in [place]. He was transition to [facility] for his DVT upon discharge. His niece who is a PA provided his medical history. He does not have any reportable fevers. No leukocytosis, hemoglobin 8.2, creatinine 3.33, normal lactate, hypomag 1.5, normal troponin and normal procalcitonin. CXR negative for pneumonia or acute cardiopulmonary disease, right knee x-ray revealed no acute dislocation or fracture however small to moderate knee effusion and diffuse soft tissue swelling noted. COVID/flu/RSV negative. Head CT negative for acute intracranial pathology. Last admission a KIERSTEN was performed with the following results: 0.5 x 0.3 echodensity MV leaflet with small vegetation noted and trace MR. / echo EF 55 to 60% with LV wall motion normal. Additional PMH includes: HTN, HLD, H/O DVT (On Eliquis), DDD lumbar region. Pt denies BLANCHARD, dizziness, chest pain, SOB, visual or auditory changes, abdominal pain or tenderness. Lengthy conversation held with infectious disease, Dr. Boggs, who indicated that he would like Vanco trough ordered and would hold all antibiotics as he suspects this is possibly supratherapeutic due to previous Vanco and uremia causing AMS. He suggested monitoring off everything to see how he responds over the next 24 hours. He did take his AM dose of Daptomycin administered by home health and was given Rocephin 2G in the ED, along with Ativan. ED did discuss this individuals case with Chase Gallegos directly and agreed for transfer to a tertiary care facility. Accepting Hospitalist is Dr. Jordan Finney. Unfortunately, transfer is limited logistically due to transportation/bed. Likely transfer 01/05/24. For now, continue to provide supportive care with continued IV abx, monitoring, Ortho consult placed in case patient is not transferred in a timely setting. Transfer paperwork has been completed. Transfer center did not have a bed as of 1740 on 01/04 and this was communicated to brennan. Admission Exam Per Admitting Provider Neuro: AAOx4, PERRLA, no aphagia, memory changes, CNII-XII grossly intact HEENT: head normocephalic, moist mucus membranes CV: S1/S2, (-) M/G/R, (-) edema, cap refill < 3 seconds Resp: Lungs CTA in all minaya. On RA GI: Abdomen S/NT/ND, Ax4 bowel sounds, (-) CVA tenderness Musculoskeletal: 5/5 B/L UE strength, 5/5 B/L LE strength. No gait disturbance Skin: (-) rashes , (-) erythema. Psych: euthymic mood Principal Diagnosis AMS iso bacteremia septic knee Discharge Exam GENERAL: Alert and oriented x3. NAD, on RA. HEENT: No pallor, no icterus. Pupils equal, round and reactive to light. Oral mucosa moist. NECK: No JVD, no neck masses. HEART: S1 and S2 heard. Regular rate and rhythm. No murmur, no gallop. RESPIRATORY SYSTEM: Normal AP diameter. No accessory muscle use. No wheezing, no crackles. ABDOMEN: Soft, bowel sounds present, nontender, no distention. CENTRAL NERVOUS SYSTEM: No facial droop. Speech is clear. Obeys simple commands. Moves extremities. EXTREMITIES: No edema, no erythema seen. RLE swelling noted, Rt knee swollen, - ve erythema, decreased ROM, doesn't seem pain out of proportion. Discharge Data Allergies Allergy/AdvReac Type Severity Reaction Status Date / Time No Known Allergies Allergy Unverified 01/05/24 12:24 Consultations 01/05/24 14:12 ED Decision to Admit Stat 01/05/24 14:26 ED Decision to Admit Stat 01/05/24 15:44 Consult Orthopedic Surgery Routine 01/05/24 15:57 Consult Nephrology Routine 01/06/24 11:52 Consult Infectious Diseases Routine 01/06/24 16:23 Burn CD for patient Stat 01/06/24 16:42 Consult Neurology Routine Ordered Studies 01/05/24 14:26 CT head/brain wo con Stat Hospital Course (1) Hypertension: (2) Dyslipidemia: (3) DICK (acute kidney injury): (4) Hypomagnesemia: (5) History of DVT (deep vein thrombosis): 58-year-old male with PMH of HTN, HLD, OFELIA, DVT RLE, acute hematogenous OM of right femur presented with altered mental status 01/04. Of note, he had recent inpatient hospitalization here at [facility] with a transfer [place] [facility] [place] further evaluation of MRSA bacteremia, endocarditis and s/p I & D of the right distal femur osteomyelitis and placement of antibiotic beads on 12/24 in [place]. The admission was complicated by RLE DVT. Patient was started on Eliquis. Last admission a KIERSTEN was performed with the following results: 0.5 x 0.3 echodensity MV leaflet with small vegetation noted and trace MR. 12/20 echo EF 55 to 60% with LV wall motion normal. He was initially put on IV vancomycin for MRSA bacteremia with IE but developed DICK and ATN, hence was switched to IV daptomycin. He was discharged on 01/02/2024 on iv Dapto 650 mg Q48x 17 doses [not to be started before January 03, 2024]. He has PICC line. He did take his a.m. dose of vancomycin on 01/04 prior to arrival. At presentation, WBC WNL, procalcitonin WNL, lactate WNL. Acute metabolic encephalopathy Recent MRSA bacteremia and infective endocarditis: Undergoing treatment with IV daptomycin [see above]. CPK on 01/04 at 171. Patient presenting with confusion described as erratic and confused per family member at presentation. He was recently on IV vancomycin, switched to IV daptomycin due to DICK/ATN At presentationpatient denied any chest pain or shortness of breath or febrile illness lately. Patient denies any dysuria or hematuria. Patient did have swollen and painful right knee at presentation. Sutures intact/no erythema noted at bedside examination today. Bed sheets with drainage stains. Admitting CXR with no acute finding. Admitting CT head with no acute finding. Admitting right knee with no acute fracture or dislocation, has small to moderate right knee effusion associated with diffuse soft tissue swelling. Imaging suggestive of osteomyelitis versus septic arthritis. Admitting team discussed with ID 01/04, plan was to get vancomycin trough level, and to hold all antibiotic as ID suspected possibly supratherapeutic vancomycin level ISO uremia causing AMS. Vancomycin trough level came back 4.8, patient remains confused on and off. Will consult neurology. Reached out to ID Dr. Harman via TT, patient is not due for further IV antibiotic until tomorrow a.m. per recent ID discharge recommendation. Will await further input from infectious disease. Patient has been accepted for transfer at [facility] [accepting physician Dr. Jordan Finney]. Ortho consult has been placed already, will closely follow recommendation. Discussed with transfer center, no further updates on bed availability at this time. --> updated about 4:47 pm, bed assignment received. Eliquis has been held per admitting team in anticipation for surgical need open transfer to [place]. Will continue to hold Eliquis, will put patient on IV heparin drip if patient is to wait here for longer time.[Monitor H&H closely]. Follow admitting blood culture, vitals appears stable. DICK/uremia: Likely from ATN. Nephrology on board, appreciate recommendation. Continue with IV fluid. Hypomagnesemia: Monitor replete. History of DVT: On Eliquis at home, currently on hold in anticipation for any surgical needs at [facility]. Hypertension: Chronic, enalapril on hold due to DICK Hyperlipidemia: Chronic, on simvastatin at home. Hold due to being on daptomycin. Disposition: PCP: Dr. Still Code Status: Full Code VTE Prophylaxis: On Eliquis Transfer to [facility] when transport arranged for. Patient's primary contact Sebas Velascot was given a phone call and updated on current status of the patient. We went over each and every point as noted in my assessment and plan. He was made aware that patient has already got bed assignment at [facility] and will be transferred likely tonight. He stated that he will communicate to other relevant family members about this update. [facility] Attestation I certify that this patient is under my care and that I, or a physicians housekeeping assistant working with me, had a face to-face encounter that meets the home health [id number] encounter requirements with this patient. The encounter with the patient was in whole, or in part, for the following medical condition, which is the primary reason for home health care (list medical condition): I certify that, based on my findings, the following services are medically necessary home health services: My clinical findings support the need for the above services because: Further, I certify that my clinical findings support that this patient is homebound (i.e. absences from home require considerable and taxing effort and are for medical reasons or episcopal services or infrequently or of short duration when for other reasons) because: Certification for Home Health Services: Based on the above findings, I certify that this patient is confined to the home and needs intermittent halfway care, physical therapy and/or speech therapy or continues to need occupational therapy. The patient is under my care, and I have initiated the establishment of the plan of care. This patient will be followed by a physician who will periodically review the plan of care. Total Time Total Time Spent Total Time Spent (In Minutes): 60 Discharge Plan Discharge Items Patient Disposition: Transfer Acute Care Hospital Reason For Visit: AMS Discharge Diagnosis: Altered mental status in the setting of recent MRSA bacteremia and infective endocarditis Concern for right knee septic arthritis Activity: As commented below Activity Comment: As per tertiary center Non-emergency contact: Primary Care Provider Call non-emergency contact if: you have any medication questions Follow-up/Referrals: Raul Still MD [Primary Care Provider] - Diet: Nothing by Mouth Addtl Attending Provider Instructions: You are being discharged to [facility] for further workup for your AMS in the setting of recent MRSA bacteremia/infective endocarditis and concern of right knee septic arthritis. Your prior to arrival Home medications will be continued as it is in discharge med rec. Your current inpatient medications are copied and pasted below for the sake of comparison. Current Inpatient Medications Acetaminophen (Acetaminophen 325 Mg Tab) 650 mg PO Q4H PRN PRN Reason: Pain or Fever Stop: 02/04/24 14:17 Al Hydrox/Mg Hydrox/Simethicone (Aluminum/Magnesium Susp 30 Ml Udc) 15 ml PO Q4H PRN PRN Reason: Dyspepsia Stop: 02/04/24 14:17 Haloperidol Lactate (Haloperidol Lactate 5 Mg/Ml 1 Ml Vial) 2.5 mg IV Q8H PRN PRN Reason: agitation Stop: 02/05/24 09:44 Last Admin: 01/06/24 13:08 Dose: 2.5 mg Dextrose/Sodium Chloride (D5w And 1/2nss) 1,000 mls @ 65 mls/hr IV .[id number] SUKHJINDER Stop: 02/05/24 08:59 Last Admin: 01/06/24 10:27 Dose: 65 mls/hr Magnesium Hydroxide (Magnesium Hydroxide Susp 30 Ml Udc) 30 ml PO Q12H PRN PRN Reason: Constipation Stop: 02/04/24 14:17 Ondansetron HCl (Ondansetron Inj 2 Mg/Ml 2 Ml Vial) 4 mg IV Q6H PRN PRN Reason: Nausea Stop: 02/04/24 14:17 Polyethylene Glycol (Polyethylene (Miralax) 17 Gm Pack) 17 gm PO DAILY PRN PRN Reason: Constipation Stop: 02/04/24 14:17 Pending Studies at Discharge: Yes Stand-Alone Forms: [facility] Skilled Items Patient informed of condition?: Yes DNR: No Discharge Level of Care: Other Communicable Disease: No Discharge Prognosis: Other Lines: Peripheral IV Urinary Catheter: No Medications and DC Order Prescriptions: Continued enalapril maleate 10 mg tablet 10 mg PO QAM Hold Instructions: Resume on 12/28/23. Rx Instructions: TAKE WITH 20MG EVERY MORNING = 30MG DAILY naproxen 500 mg tablet 500 mg PO BID PRN (Reason: Pain) Hold Instructions: Resume on 12/28/23. simvastatin 20 mg tablet 20 mg PO HS Hold Instructions: Resume on 12/28/23. baclofen 20 mg tablet 20 mg PO DAILY PRN (Reason: muscle spasms) ferrous sulfate 325 mg (65 mg iron) tablet 325 mg PO QAM Rx Instructions: with breakfast Eliquis 5 mg tablet 5 mg PO BID Daptomycin Iv 650 m IV Q OTHER DAY Rx Instructions: Do not srtart before December, 17 doses Discharge Orders: Discharge Order (Routine); Ordered 01/06/24 Ordered By: Ranjit Faust Admission Data Admit Date/Time: 01/05/24 14:18 Attending Provider: Ranjit Faust Admit Provider: Henrique Jean Primary Care Provider: Raul Still Other Providers: Henrique Jean; Rogelio Wells; Zeferino Pope; Buck Weathers; Myles Monroy; Levy Wells I.; Tristin Boggs II; Alexandra Ruelas; Ty Stephens; Osman Harman; Sophia Rios; Theron Wang; Ivan Barriga; Spencer Lares
== END 2024-01-06 18:00 | disposition short-term general hospital (02) | DRG 682 ==
LOC: ED 10:45 → SUATTDRO 14:18 → EDINP 14:18 → 2S 16:04